=== PATIENT | male | born 1950 | race Caucasian/White ===

== ENCOUNTER 2021-06-15 23:42 | Emergency (ER) | payer MEDICARE ==
[2021-06-16 00:13] LABS: Basophils # (A) 0.1 k/uL (0-0.2); Basophils % (A) 1 %; Eosinophils # (A) 0.3 k/uL (0-0.7); Eosinophils % (A) 4 %; HCT 34.5 % (39.0-53.0); HGB 11.6 gm/dL (13.0-17.5); Lymphocytes # (A) 1.2 k/uL (1.0-4.8); Lymphocytes % (A) 19 %; MCH 33.7 pg (25.0-35.0); MCHC 33.6 g/dL (31.0-37.0); MCV 100.3 fL (80.0-100.0); Macrocytosis Slight; Mean Platelet Volume 8.8; Monocytes # (A) 0.5 k/uL (0-1.0); Monocytes % (A) 7 %; Neutrophils # (A) 4.4 k/uL (1.3-7.7); Neutrophils % (A) 68 %; Platelet Count 231 k/uL (150-450); RBC 3.44 m/uL (4.30-5.90); RDW 14.8 % (11.5-15.5); WBC 6.5 k/uL (3.8-10.6)
[2021-06-16 00:23] LABS: Albumin 3.8 g/dL (3.5-5.0); Calcium 8.7 mg/dL (8.4-10.2); Potassium 4.9 mmol/L (3.5-5.1); Total Bilirubin 0.5 mg/dL (0.2-1.3); Total Protein 7.1 g/dL (6.3-8.2)
[2021-06-16 00:33] LABS: Partial Thromboplastin Time 24.3 sec (22.0-30.0); Prothrombin Time 10.8 sec (9.0-12.0)
--- NOTE | 2021-06-16 00:55 | CT ---
EXAMINATION TYPE: CT brain wo con DATE OF EXAM: 06/16/2021 COMPARISON: None HISTORY: Fall, Head Laceration CT DLP: 1173.4 mGycm Automated exposure control for dose reduction was used. Images of the brain obtained without contrast. There is cerebral cortical atrophy. There is no mass effect or midline shift. There is no sign of int racranial hemorrhage. The calvarium is intact. There is normal aeration of the mastoid sinuses. There is mild enlargement of the ventricles. IMPRESSION: Cerebral atrophy. No acute intracranial abnormality. Right frontal scalp soft tissue swelling noted.
[2021-06-16] MEDS: TOPICAL SKIN ADHESIVE 1 EACH AMP TOPICAL STA ×2 (01:04→01:14)
[2021-06-16] MEDS ORDERED: TOPICAL SKIN ADHESIVE 1 EACH AMP TOPICAL ONE (01:09)
--- NOTE | 2021-06-16 01:57 | ED ---
Fall HPI - General Chief Complaint: Fall Stated Complaint: Fall Time Seen by Provider: 06/15/21 23:44 Source: patient, family Mode of arrival: ambulatory - History of Present Illness Initial Comments: This patient is a 71-year-old man who presents to have evaluation of right upper facial laceration following a fall. The patient states that he was going to get some water when he felt lightheaded. He thinks she may have blacked out briefly and then fallen striking his face. The patient did not have chest pain, dyspnea, diaphoresis, palpitations. After the fall he called his daughter who drove over and found him and he presents to have evaluation for the laceration. MD Complaint: fall -: minutes(s) Fall From: standing When Fall Occurred: just prior to arrival Fall Witnessed: no Place Fall Occurred: home Loss of Consciousness: second(s) Prolonged Down Time?: no Symptoms Prior to Fall: lightheadedness Location: face Severity: mild Quality: dull Context: history of frequent falls Associated Symptoms: headache - Related Data Allergies Allergy/AdvReac Type Severity Reaction Status Date / Time No Known Allergies Allergy Verified 06/16/21 00:04 Review of Systems ROS Statement: Those systems with pertinent positive or pertinent negative responses have been documented in the HPI. ROS Other: All systems not noted in ROS Statement are negative. Constitutional: Denies: fever, chills, weakness Eyes: Denies: eye pain, vision change ENT: Denies: epistaxis Respiratory: Denies: cough, dyspnea Cardiovascular: Reports: syncope. Denies: chest pain, palpitations, edema Gastrointestinal: Denies: abdominal pain, nausea, vomiting, diarrhea Musculoskeletal: Denies: back pain Skin: Reports: as per HPI, lesions (Laceration). Denies: rash Neurological: Reports: headache. Denies: weakness, numbness, paresthesias, confusion Hematological/Lymphatic: Reports: other (Taking Plavix). Denies: easy bleeding Past Medical History Past Medical History: Dialysis History of Any Multi-Drug Resistant Organisms: None Reported Past Psychological History: No Psychological Hx Reported Smoking Status: Unknown if ever smoked Past Alcohol Use History: None Reported Past Drug Use History: None Reported General Exam Limitations: no limitations General appearance: alert, in no apparent distress Head exam: Present: normocephalic, other (Patient has flap shaped laceration to the right brow and forehead, approximately 8 cm total length) Eye exam: Present: normal appearance, PERRL, EOMI. Absent: scleral icterus, conjunctival injection, nystagmus, periorbital swelling, periorbital tenderness ENT exam: Present: normal oropharynx, TM's normal bilaterally Neck exam: Present: normal inspection, full ROM. Absent: tenderness Respiratory exam: Present: normal lung sounds bilaterally. Absent: respiratory distress, wheezes, rales, rhonchi Cardiovascular Exam: Present: regular rate, normal rhythm, normal heart sounds. Absent: systolic murmur, diastolic murmur, rubs, gallop GI/Abdominal exam: Present: soft. Absent: distended, tenderness, guarding, rebound, rigid, mass Extremities exam: Present: normal inspection, normal capillary refill. Absent: pedal edema, calf tenderness Back exam: Present: normal inspection. Absent: CVA tenderness (R), CVA tenderness (L), vertebral tenderness Neurological exam: Present: alert, oriented X3, CN II-XII intact, normal gait. Absent: motor sensory deficit Skin exam: Present: warm, dry, intact, normal color. Absent: rash Course Vital Signs 06/15/21 06/16/21 23:51 02:45 Temperature 97.7 F Pulse Rate 68 64 Respiratory 18 20 Rate Blood Pressure 135/67 104/49 O2 Sat by Pulse 99 97 Oximetry Procedures - Laceration Laceration #1 Consent Obtained: verbal consent Indication: laceration Site: face Description: flap Depth: involves muscle layer Anesthetic Used: lidocaine 1% Anesthesia Technique: local infiltration Type of Sutures: nylon, vicryl Size of Sutures: 5-0 Number of Sutures: 18 Technique: simple, interrupted Complications: bleeding Patient Tolerated Procedure: well, no complications Medical Decision Making - Medical Decision Making Patient is a 71-year-old man here for evaluation after ground-level fall with right facial/eyebrow laceration. Discussed the etiology of the fall and patient believes that too much fluid was taken off at dialysis. He has had similar episodes previously. He was offered admission for syncope workup and at this point he feels well and wants home. He will return if any symptoms recur or new symptoms develop. Discussed appropriate further care and follow-up. - Lab Data Result diagrams: 06/16/21 00:06 06/16/21 00:06 Lab Results 06/16/21 06/16/2122 Range/Units 00:06 00:06 00:06 WBC 6.5 (3.8-10.6) k/uL RBC 3.44 L (4.30-5.90) m/uL Hgb 11.6 L (13.0-17.5) gm/dL Hct 34.5 L (39.0-53.0) % MCV 100.3 H (80.0-100.0) fL MCH 33.7 (25.0-35.0) pg MCHC 33.6 (31.0-37.0) g/dL RDW 14.8 (11.5-15.5) % Plt Count 231 (150-450) k/uL MPV 8.8 Neutrophils % 68 % Lymphocytes % 19 % Monocytes % 7 % Eosinophils % 4 % Basophils % 1 % Neutrophils # 4.4 (1.3-7.7) k/uL Lymphocytes # 1.2 (1.0-4.8) k/uL Monocytes # 0.5 (0-1.0) k/uL Eosinophils # 0.3 (0-0.7) k/uL Basophils # 0.1 (0-0.2) k/uL Macrocytosis Slight PT 10.8 (9.0-12.0) sec INR 1.0 (<1.2) APTT 24.3 (22.0-30.0) sec Sodium 136 L (137-145) mmol/L Potassium 4.9 (3.5-5.1) mmol/L Chloride 98 (98-107) mmol/L Carbon Dioxide 29 (22-30) mmol/L Anion Gap 9 mmol/L BUN 31 H (9-20) mg/dL Creatinine 4.22 H (0.66-1.25) mg/dL Est GFR (CKD-EPI)AfAm 15 (>60 ml/min/1.73 sqM) Est GFR (CKD-EPI)NonAf 13 (>60 ml/min/1.73 sqM) Glucose 122 H (74-99) mg/dL Calcium 8.7 (8.4-10.2) mg/dL Total Bilirubin 0.5 (0.2-1.3) mg/dL AST 21 (17-59) U/L ALT 9 (4-49) U/L Alkaline Phosphatase 86 (38-126) U/L Troponin I (0.000-0.034) ng/mL Total Protein 7.1 (6.3-8.2) g/dL Albumin 3.8 (3.5-5.0) g/dL 06/16/21 Range/Units 00:06 WBC (3.8-10.6) k/uL RBC (4.30-5.90) m/uL Hgb (13.0-17.5) gm/dL Hct (39.0-53.0) % MCV (80.0-100.0) fL MCH (25.0-35.0) pg MCHC (31.0-37.0) g/dL RDW (11.5-15.5) % Plt Count (150-450) k/uL MPV Neutrophils % % Lymphocytes % % Monocytes % % Eosinophils % % Basophils % % Neutrophils # (1.3-7.7) k/uL Lymphocytes # (1.0-4.8) k/uL Monocytes # (0-1.0) k/uL Eosinophils # (0-0.7) k/uL Basophils # (0-0.2) k/uL Macrocytosis PT (9.0-12.0) sec INR (<1.2) APTT (22.0-30.0) sec Sodium (137-145) mmol/L Potassium (3.5-5.1) mmol/L Chloride (98-107) mmol/L Carbon Dioxide (22-30) mmol/L Anion Gap mmol/L BUN (9-20) mg/dL Creatinine (0.66-1.25) mg/dL Est GFR (CKD-EPI)AfAm (>60 ml/min/1.73 sqM) Est GFR (CKD-EPI)NonAf (>60 ml/min/1.73 sqM) Glucose (74-99) mg/dL Calcium (8.4-10.2) mg/dL Total Bilirubin (0.2-1.3) mg/dL AST (17-59) U/L ALT (4-49) U/L Alkaline Phosphatase (38-126) U/L Troponin I 0.014 (0.000-0.034) ng/mL Total Protein (6.3-8.2) g/dL Albumin (3.5-5.0) g/dL Disposition Clinical Impression: Fall, Head injury, Laceration of face Disposition: HOME SELF-CARE Condition: Good Instructions (If sedation given, give patient instructions): Laceration (DC), Head Injury (ED) Is patient prescribed a controlled substance at d/c from ED?: No Referrals: Brice Davila DO [Primary Care Provider] - 1-2 days
[2021-06-16 02:46] VITALS: BP 104/49; PULSE 64; RESP 20; TEMP 97.7
== END 2021-06-16 02:30 | disposition home or self-care (01) ==
LOC: EC 23:42
DX: S01.111A Laceration without foreign body of right eyelid and periocular area, initial encounter (principal); W18.30XA Fall on same level, unspecified, initial encounter; Y92.009 Unspecified place in unspecified non-institutional (private) residence as the place of occurrence of the external cause
CPT/HCPCS: 12015; 36415; 70450; 80053; 84484; 85025; 85610; 85730; 93005; 99284

== ENCOUNTER → 2021-09-25 | Outpatient (CLI) | payer MEDICARE ==
--- NOTE | 2021-09-25 10:56 | CA ---
Transthoracic Echo Report Name: Aldo Turpin Age: 71 Gender: M : 1950 Exam Date: 09/25/2021 09:45 Exam Location: [facility] Ht (in): 74 Wt (lb): 235 Ordering Physician: Stella Gomez MD Attending/Referring Phys: Heel Seater Alicia Chinchilla RDCS Procedure CPT: Indications: RIGHT PLUERAL RUB Cardiac Hx: Technical Quality: Contrast 1: Total Dose (mL): Contrast 2: Total Dose (mL): MEASUREMENTS (Male / Female) Normal Values M-MODE Aortic Root Diameter MM 3.4 cm LA Systolic Diameter MM 4.2 cm LA Ao Ratio MM 1.2 AV Cusp Separation MM 2.2 cm DOPPLER MV Area PHT 3.5 cm??? Mitral E Point Velocity 57.8 cm/s Mitral A Point Velocity 75.7 cm/s Mitral E to A Ratio 0.8 MV Deceleration Time 215.8 ms TR Peak Velocity 248.6 cm/s TR Peak Gradient 24.7 mmHg FINDINGS Left Ventricle Left ventricular ejection fraction is estimated at 45%. Mildly increased left ventricular wall thickness. Right Ventricle Normal right ventricular size and function. Right Atrium Normal right atrial size. Left Atrium Moderately increased left atrial area. Mitral Valve Mitral valve thickened. Mild mitral regurgitation. Aortic Valve Aortic valve sclerosis. Mild aortic regurgitation. Tricuspid Valve Structurally normal tricuspid valve. Mild tricuspid regurgitation. Pulmonic Valve Pulmonic valve not well visualized. Pericardium Normal pericardium. Aorta Normal size aortic root and proximal ascending aorta. CONCLUSIONS Increase LV mass with reduced LV systolic function ejection fraction 45% Patient is also bradycardic Previewed by: Dr. Gama Yuan MD (Electronically Signed) Final Date: 25 September 2021 10:56
== END | disposition home or self-care (01) ==
LOC: RADECHMAIN 08:05
PROVIDERS: ATTEND Internal Medicine Nephrology
DX: R09.1 Pleurisy (principal)
CPT/HCPCS: 93306

== ENCOUNTER 2022-01-01 13:37 | Emergency (ER) | payer MEDICARE ==
[2022-01-01 13:44] VITALS: TEMP 97.6
--- NOTE | 2022-01-01 13:57 | ED ---
General Adult HPI - General Chief complaint: Shortness of Breath Stated complaint: crackling sound - lung Time Seen by Provider: 01/01/22 13:45 Source: patient, RN notes reviewed Mode of arrival: ambulatory Limitations: no limitations - History of Present Illness Initial comments: Patient is a 71 year old male presenting to the ER with a chief compliant of shortness of breath. Patient reports yesterday while at dialysis the staff told him they heard crackles in his lungs and that he sound go get a chest xray. He attends dialysis three times per week (Thursday, , Thursday). Patient has experiencing shortness of breath for about a week and woke up on 12/29/21, covered in sweat. He also endorses a dry cough. He denies fevers or chills. Denies recent sick contacts. 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 Denies chest pain, congestion, abdominal pain, or change in bowel habits. - Related Data Previous Rx's Medication Instructions Recorded Azithromycin [Zithromax Z Pack] 0 tab PO DIRECTED #6 tab 01/01/22 Allergies Allergy/AdvReac Type Severity Reaction Status Date / Time No Known Allergies Allergy Verified 01/01/22 13:44 Review of Systems ROS Statement: Those systems with pertinent positive or pertinent negative responses have been documented in the HPI. ROS Other: All systems not noted in ROS Statement are negative. Past Medical History Past Medical History: Dialysis History of Any Multi-Drug Resistant Organisms: None Reported Additional Past Surgical History / Comment(s): Cardiac Bipass (6 at once). Past Psychological History: No Psychological Hx Reported Smoking Status: Former smoker Past Alcohol Use History: None Reported Past Drug Use History: None Reported General Exam Limitations: no limitations General appearance: alert, in no apparent distress Respiratory exam: Present: wheezes, rales Cardiovascular Exam: Present: regular rate, normal rhythm, normal heart sounds. Absent: systolic murmur, diastolic murmur, rubs, gallop, clicks GI/Abdominal exam: Present: soft, normal bowel sounds. Absent: distended, tenderness, guarding, rebound, rigid Neurological exam: Present: alert, oriented X3, CN II-XII intact Psychiatric exam: Present: normal affect, normal mood Skin exam: Present: warm, dry, intact, normal color. Absent: rash Course Vital Signs 01/01/22 13:41 Temperature 97.6 F Pulse Rate 60 Respiratory 20 Rate Blood Pressure 130/70 O2 Sat by Pulse 99 Oximetry Medical Decision Making - Medical Decision Making Patient is a 71 year old male presenting to the ER with a chief complaint of shortness of breath. Chest x-ray shows possibility of early changes of pneumonia right lower. Patient has slight cough but not feels short of breath, chest pain lab work and normal baseline for patient. Patient agrees to plan of discharge with antiemetics and close follow-up. - Lab Data Result diagrams: 01/01/22 14:30 01/01/22 14:30 Lab Results 01/01/22 01/01/22 01/01/22 Range/Units 14:30 14:30 14:30 WBC 6.4 (3.8-10.6) k/uL RBC 3.53 L (4.30-5.90) m/uL Hgb 11.7 L (13.0-17.5) gm/dL Hct 35.1 L (39.0-53.0) % MCV 99.5 (80.0-100.0) fL MCH 33.3 (25.0-35.0) pg MCHC 33.4 (31.0-37.0) g/dL RDW 13.9 (11.5-15.5) % Plt Count 204 (150-450) k/uL MPV 9.1 Neutrophils % 67 % Lymphocytes % 18 % Monocytes % 8 % Eosinophils % 4 % Basophils % 1 % Neutrophils # 4.2 (1.3-7.7) k/uL Lymphocytes # 1.2 (1.0-4.8) k/uL Monocytes # 0.5 (0-1.0) k/uL Eosinophils # 0.3 (0-0.7) k/uL Basophils # 0.0 (0-0.2) k/uL Sodium 134 L (137-145) mmol/L Potassium 4.6 (3.5-5.1) mmol/L Chloride 95 L (98-107) mmol/L Carbon Dioxide 27 (22-30) mmol/L Anion Gap 12 mmol/L BUN 49 H (9-20) mg/dL Creatinine 6.06 H (0.66-1.25) mg/dL Est GFR (CKD-EPI)AfAm 10 (>60 ml/min/1.73 sqM) Est GFR (CKD-EPI)NonAf 9 (>60 ml/min/1.73 sqM) Glucose 253 H (74-99) mg/dL Calcium 8.6 (8.4-10.2) mg/dL Phosphorus 5.5 H (2.5-4.5) mg/dL Magnesium 2.2 (1.6-2.3) mg/dL Total Bilirubin 0.6 (0.2-1.3) mg/dL AST 23 (17-59) U/L ALT 14 (4-49) U/L Alkaline Phosphatase 111 (38-126) U/L NT-Pro-B Natriuret Pep 50814 pg/mL Total Protein 7.0 (6.3-8.2) g/dL Albumin 4.1 (3.5-5.0) g/dL Coronavirus (PCR) (Not Detectd) 01/01/22 Range/Units 15:00 WBC (3.8-10.6) k/uL RBC (4.30-5.90) m/uL Hgb (13.0-17.5) gm/dL Hct (39.0-53.0) % MCV (80.0-100.0) fL MCH (25.0-35.0) pg MCHC (31.0-37.0) g/dL RDW (11.5-15.5) % Plt Count (150-450) k/uL MPV Neutrophils % % Lymphocytes % % Monocytes % % Eosinophils % % Basophils % % Neutrophils # (1.3-7.7) k/uL Lymphocytes # (1.0-4.8) k/uL Monocytes # (0-1.0) k/uL Eosinophils # (0-0.7) k/uL Basophils # (0-0.2) k/uL Sodium (137-145) mmol/L Potassium (3.5-5.1) mmol/L Chloride (98-107) mmol/L Carbon Dioxide (22-30) mmol/L Anion Gap mmol/L BUN (9-20) mg/dL Creatinine (0.66-1.25) mg/dL Est GFR (CKD-EPI)AfAm (>60 ml/min/1.73 sqM) Est GFR (CKD-EPI)NonAf (>60 ml/min/1.73 sqM) Glucose (74-99) mg/dL Calcium (8.4-10.2) mg/dL Phosphorus (2.5-4.5) mg/dL Magnesium (1.6-2.3) mg/dL Total Bilirubin (0.2-1.3) mg/dL AST (17-59) U/L ALT (4-49) U/L Alkaline Phosphatase (38-126) U/L NT-Pro-B Natriuret Pep pg/mL Total Protein (6.3-8.2) g/dL Albumin (3.5-5.0) g/dL Coronavirus (PCR) Not Detected (Not Detectd) Disposition Clinical Impression: Pneumonia Disposition: HOME SELF-CARE Condition: Stable Instructions (If sedation given, give patient instructions): Pneumonia (ED) Additional Instructions: Please return to the Emergency Department if symptoms worsen or any other concerns. Prescriptions: Azithromycin [Zithromax Z Pack] 0 tab PO DIRECTED #6 tab Is patient prescribed a controlled substance at d/c from ED?: No Referrals: Brice Davila DO [Primary Care Provider] - 1-2 days Time of Disposition: 15:43
--- NOTE | 2022-01-01 14:20 | XR ---
EXAMINATION TYPE: XR chest 2V DATE OF EXAM: 01/01/2022 COMPARISON: NONE HISTORY: Coughing and shortness of breath. TECHNIQUE: Frontal and lateral views of the chest are obtained. FINDINGS: Sternal wires and mediastinal clips are present. There is chronic parenchymal change with small bilat eral pleural effusions. There is right-sided volume loss with mediastinal shift to the right. There i s peripherally right lower lung and right greater than left bibasilar opacities. Cardiac silhouette s ize within normal limits. Osseous structures are intact. IMPRESSION: Chronic emphysematous and parenchymal fibrotic changes with small bilateral pleural eff usions. Right-sided volume loss. Possible acute infiltrate in the right lower lobe. Correlation with old outside x-ray would be beneficial.
[2022-01-01 15:10] LABS: Basophils % (A) 1 %; Eosinophils # (A) 0.3 k/uL (0-0.7); Eosinophils % (A) 4 %; HCT 35.1 % (39.0-53.0); HGB 11.7 gm/dL (13.0-17.5); Lymphocytes # (A) 1.2 k/uL (1.0-4.8); Lymphocytes % (A) 18 %; MCH 33.3 pg (25.0-35.0); MCHC 33.4 g/dL (31.0-37.0); MCV 99.5 fL (80.0-100.0); Mean Platelet Volume 9.1; Monocytes # (A) 0.5 k/uL (0-1.0); Monocytes % (A) 8 %; Neutrophils # (A) 4.2 k/uL (1.3-7.7); Neutrophils % (A) 67 %; Platelet Count 204 k/uL (150-450); RBC 3.53 m/uL (4.30-5.90); RDW 13.9 % (11.5-15.5); WBC 6.4 k/uL (3.8-10.6)
[2022-01-01 15:35] LABS: Albumin 4.1 g/dL (3.5-5.0); Calcium 8.6 mg/dL (8.4-10.2); Magnesium 2.2 mg/dL (1.6-2.3); Phosphorus 5.5 mg/dL (2.5-4.5); Potassium 4.6 mmol/L (3.5-5.1); Total Bilirubin 0.6 mg/dL (0.2-1.3)
[2022-01-01] MEDS ORDERED: cefTRIAXone IN SWFI 1,000 MG/10 ML SYRINGE IVP STA (15:41)
[2022-01-01 16:19] VITALS: BP 177/83; PULSE 62; RESP 18
== END 2022-01-01 16:22 | disposition home or self-care (01) ==
LOC: SUPCPDRO 13:37 → EC 13:37
DX: J18.9 Pneumonia, unspecified organism (principal); Z20.822 Contact with and (suspected) exposure to COVID-19; Z87.891 Personal history of nicotine dependence
CPT/HCPCS: 36415; 83880; 80053; 83605; 83735; 84100; 85025; 87040; 87635; 71046; 99285; 96374; J0696

== ENCOUNTER 2022-03-10 19:04 | Inpatient (IN) | payer MEDICARE ==
[2022-03-10 20:55] LABS: Basophils # (A) 0.1 k/uL (0-0.2); Basophils % (A) 1 %; Eosinophils # (A) 0.1 k/uL (0-0.7); Eosinophils % (A) 1 %; HCT 30.9 % (39.0-53.0); HGB 10.2 gm/dL (13.0-17.5); Lymphocytes # (A) 0.8 k/uL (1.0-4.8); Lymphocytes % (A) 8 %; MCHC 33.1 g/dL (31.0-37.0); MCV 93.6 fL (80.0-100.0); Mean Platelet Volume 7.8; Monocytes # (A) 0.5 k/uL (0-1.0); Monocytes % (A) 5 %; Neutrophils % (A) 84 %; Platelet Count 263 k/uL (150-450); RDW 14.9 % (11.5-15.5); WBC 9.6 k/uL (3.8-10.6)
[2022-03-10 21:08] LABS: Albumin 3.7 g/dL (3.5-5.0); Calcium 9.2 mg/dL (8.4-10.2); Magnesium 2.2 mg/dL (1.6-2.3); Total Bilirubin 0.9 mg/dL (0.2-1.3); Total Protein 7.1 g/dL (6.3-8.2)
[2022-03-10 21:22] LABS: Partial Thromboplastin Time 24.2 sec (22.0-30.0); Prothrombin Time 10.9 sec (9.0-12.0)
--- NOTE | 2022-03-10 21:54 | XR ---
EXAMINATION TYPE: XR chest 2V DATE OF EXAM: 03/10/2022 COMPARISON: 01/01/2022 HISTORY: Chest pain TECHNIQUE: 2 views FINDINGS: There is extensive pleural thickening on the right lateral chest wall. There is extensive i nfiltrate right lower lobe. There is some diffuse airspace infiltrate left lower lobe. Heart size is normal. There are sternal wires. IMPRESSION: Bilateral pneumonia and moderate size right pleural effusion with loculation. Abnormaliti es significantly increased on the right side compared to old exam. Follow-up recommended. Consider po ssibilities of empyema and mesothelioma.
[2022-03-10] MEDS ORDERED: carvediloL 3.125 MG TAB PO STA (21:58)
--- NOTE | 2022-03-10 22:26 | ED ---
General Adult HPI - General Chief complaint: Chest Pain Stated complaint: sob, cough Time Seen by Provider: 03/10/22 21:18 Source: patient, RN notes reviewed, old records reviewed Mode of arrival: ambulatory Limitations: no limitations - History of Present Illness Initial comments: Patient is a 72-year-old male with past medical history remarkable for ESRD on hemodialysis Thursday, diabetes, hypertension, CABG who presents emergency Department from home today for progressively worsening shortness of breath over the last 2 weeks. Denies any lower extremity edema. Endorses worsening orthopnea. States he did have an episode of chest pain earlier which has since resolved. He does endorse a progressively worsening nonproductive cough as well. Did have 1 episode of posttussive emesis earlier as well. Is normally not on oxygen, however patient's daughter used a home pulse ox and found that he was in the high 80%'s. When he arrived here, he did drop down to 90% on room air. This is abnormal for the patient. States he does get exertional dyspnea. Denies any PND. States that the chest pain he expressed earlier was substernal, and felt a sharp sensation that lasted momentarily and when away. Has not been consistent since then. Denies any sick contacts. Patient's daughter is his guardian. She is at bedside and helps with history taking. Presents for further evaluation at this time. Has not missed any runs of dialysis. Is due for dialysis tomorrow. - Related Data Previous Rx's Medication Instructions Recorded Azithromycin [Zithromax Z Pack] 0 tab PO DIRECTED #6 tab 01/01/22 Allergies Allergy/AdvReac Type Severity Reaction Status Date / Time codeine Allergy Rash/Hives Verified 03/10/22 20:10 Review of Systems ROS Statement: Those systems with pertinent positive or pertinent negative responses have been documented in the HPI. Review of Systems: CONST: Denies fever EYES: Denies blurry vision ENT: Denies nasal congestion C/V: Denies Chest pain RESP: Endorses exertional dyspnea, nonproductive cough GI: Denies abdominal pain : Denies dysuria SKIN: Denies rash. MSK: Denies joint pain. NEURO: Denies headache ROS Other: All systems not noted in ROS Statement are negative. Past Medical History Past Medical History: Diabetes Mellitus, Dialysis, Hypertension Additional Past Medical History / Comment(s): CABG, Cataracts History of Any Multi-Drug Resistant Organisms: None Reported Additional Past Surgical History / Comment(s): Cardiac Bipass (6 at once). Past Psychological History: No Psychological Hx Reported Smoking Status: Former smoker Past Alcohol Use History: None Reported Past Drug Use History: None Reported General Exam - General Exam Comments Initial Comments: General: Appears in no acute distress. HEAD: Normal with no signs of head trauma. EYES: PERRLA, EOMI, conjunctiva normal, no discharge. ENT: Hearing grossly intact, normal oropharynx. RESPIRATORY: Bilateral lower lung field crackles appreciated. Hypoxic on room air down to 90%. Normoxic on 2 L nasal cannula. No respiratory distress. C/V: Regular rate and rhythm. S1 and S2 auscultated, no peripheral edema, peripheral pulses 2+ and intact throughout. Left upper extremity AV fistula has palpable thrill and audible bruit. ABD: Abd is soft, nontender, nondistended EXT: Normal range of motion, no obvious deformity SKIN: No rashes or lesions observed on exposed skin. NEURO: Alert and oriented 4. No focal deficits. Limitations: no limitations Course Vital Signs 03/10/22 03/10/22 03/10/22 20:01 21:00 22:00 Temperature 98.7 F Pulse Rate 72 65 68 Respiratory 14 18 18 Rate Blood Pressure 172/80 198/85 198/85 O2 Sat by Pulse 98 98 98 Oximetry 03/10/22 03/11/22 03/11/22 23:00 00:00 00:05 Temperature Pulse Rate 71 64 64 Respiratory 16 16 16 Rate Blood Pressure 200/84 194/84 182/84 O2 Sat by Pulse 97 98 98 Oximetry 03/11/22 03/11/22 03/11/22 02:00 03:00 04:00 Temperature Pulse Rate 63 62 63 Respiratory 16 18 18 Rate Blood Pressure 177/76 177/81 185/85 O2 Sat by Pulse 96 97 96 Oximetry Medical Decision Making - Medical Decision Making Based on the patient's presentation and physical exam, he is a 72-year-old male with cardiac history as well as history of ESRD on hemodialysis has not missed dialysis presents with one-time episode of chest pain but mostly for progressively worsening shortness of breath, nonproductive cough for the last few weeks. Has not missed any runs of dialysis. He is hypoxic on room air to 90% which is improved with 2 L nasal cannula. I'm concerned for possible cardiac pulmonary etiology for his current symptoms. Does appear to be fluid overloaded with bilateral lower lung field crackles. Clinically is presenting like congestive heart failure versus fluid overload state. He is also hypert ensive at this time but this is likely secondary to not taking his evening blood pressure medication. This will be ordered for the patient, as well as an aspirin. Cardiac labs, chest x-ray, EKG were already obtained, and were remarkable for a chronic anemia with a hemoglobin of 10.2 which is stable. Patient is chronically elevated BUN/creatinine setting of ESRD on hemodialysis. Troponin is indeterminate at 0.025. I did add on BNP as well as for Flexeril for the patient. EKG shows no signs of acute ischemia. Chest x-ray still pending. I'll check on the patient once results are back. Workup was started in triage and is pending at this time. He was in agreement this plan. Add-on BNP was 72,000. Patient is Covid, flu, RSV negative. Chest x-ray revealed bilateral infiltrates, as well as bilateral pleural effusions. Radiology was concerned for possible loculation and recommended further imaging. At this time I discussed with the patient's daughter as well as the patient, and we both agreed to obtain CT imaging of the chest with contrast. He is being admitted no matter what due to his hypoxia and therefore can receive dialysis here tomorrow. They were in agreement with this plan. CT revealed bilateral pleural effusions, larger on the right side. At this time patient's daughter left and I did call her and updated her on the patient's imaging. I accepted the patient. States he does still produce some urine and therefore will be given a single dose of Lasix. He requires pulmonology consult for possible drainage of his pleural effusions. He also requires dialysis. I did speak with the laborer concrete plant on-call, Dr. Gomez who was in agreement with dialysis. We contacted the dialysis team to notify them of the patient's requirement for dialysis tomorrow. I did the patient. He was in agreement with the plan for admission. Patient was therefore admitted in stable condition. He'll be continued on oxygen therapy. I spoke with the admitting physician, city call Dr. Amaya who accepted the patient. He was admitted in stable condition. Was pt. sent in by a medical professional or institution (HIREN Jacobson, PUBLIC HEALTH ANALYST, urgent care, hospital, or alf...) When possible be specific @ -No Did you speak to anyone other than the patient for history (EMS, parent, family, police, friend...)? What history was obtained from this source @ -Yes, patient's daughter who provided most of the history. Did you review nursing and triage notes (agree or disagree)? Why? @ -I reviewed and agree with nursing and triage notes Were old charts reviewed (outside hosp., previous admission, EMS record, old EKG, old radiological studies, urgent care reports/EKG's, alf records)? Report findings @ -Yes, old EKGs and charts were reviewed. Differential Diagnosis (chest pain, altered mental status, abdominal pain women, abdominal pain men, vaginal bleeding, weakness, fever, dyspnea, syncope, headache, dizziness, GI bleed, back pain, seizure, CVA, palpatations, mental health)? @ -Differential Dyspnea: Coronary syndrome, arrhythmia, tamponade, asthma, COPD, pulmonary embolism, pneumonia, pneumothorax, pulmonary effusion, anaphylaxis, diabetic ketoacidosis, flailed chest, pulmonary contusion, diaphragmatic rupture, anemia, neuromuscular, this is not meant to be an all-inclusive list. EKG interpreted by me (3pts min.). @ -As above X-rays interpreted by me (1pt min.). @ -Chest x-ray shows bilateral pulmonary edema, pleural effusions CT interpreted by me (1pt min.). @ -Bilateral pleural effusions, right worse than left on CT chest. U/S interpreted by me (1pt. min.). @ -None done What testing was considered but not performed or refused? (CT, X-rays, U/S, labs)? Why? @ -None What meds were considered but not given or refused? Why? @ -None Did you discuss the management of the patient with other professionals (professionals i.e. HIREN Jacobson, PUBLIC HEALTH ANALYST, lab, RT, psych nurse, social science professor, credit interviewer, teacher, chemical instrumentation officer, mattress spring encaser)? Give summary @ -Yes, patient's laborer concrete plant Dr. Gomez who agreed to arrange for dialysis. Also spoke with the admitting physician Dr. Amaya who was in agreement with the plan. Was smoking cessation discussed for >3mins.? @ -No Was critical care preformed (if so, how long)? @ -No Were there social determinants of health that impacted care today? How? (Homele ssness, low income, unemployed, alcoholism, drug addiction, transportation, low edu. Level, literacy, decrease access to med. care, detention, rehab)? @ -No Was there de-escalation of care discussed even if they declined (Discuss DNR or withdrawal of care, Hospice)? DNR status @ -No What co-morbidities impacted this encounter? (DM, HTN, Smoking, COPD, CAD, Cancer, CVA, ARF, Chemo, Hep., AIDS, mental health diagnosis, sleep apnea, morbid obesity)? @ -ESRD on hemodialysis Was patient admitted / discharged? Hospital course, mention meds given and route, prescriptions, significant lab abnormalities, going to OR and other pertinent info. @ -Admitted. See above for ED course. Undiagnosed new problem with uncertain prognosis? @ -No Drug Therapy requiring intensive monitoring for toxicity (Heparin, Nitro, Insul in, Cardizem)? @ -No Were any procedures done? @ -No Diagnosis/symptom? @ -Hypoxic respiratory failure Acute, or Chronic, or Acute on Chronic? @ -Acute Uncomplicated (without systemic symptoms) or Complicated (systemic symptoms)? @ -Complicated Side effects of treatment? @ -No Exacerbation, Progression, or Severe Exacerbation? @ -No Poses a threat to life or bodily function? How? (Chest pain, [place], [place], pneumonia, PE, COPD, DKA, ARF, appy, cholecystitis, CVA, Diverticulitis, Homicidal, Suicidal, threat to staff... and all critical care pts) @ -Yes, if untreated can result in significant morbidity and mortality. Diagnosis/symptom? @ -Bilateral pleural effusions Acute, or Chronic, or Acute on Chronic? @ -Acute on chronic Uncomplicated (without systemic symptoms) or Complicated (systemic symptoms)? @ -Complicated Side effects of treatment? @ -none Exacerbation, Progression, or Severe Exacerbation] @ -no Poses a threat to life or bodily function? @ -Yes, if untreated can result in significant morbidity and mortality. Diagnosis/symptom? @ -History of ESRD on hemodialysis Acute, or Chronic, or Acute on Chronic? @ -Chronic Uncomplicated (without systemic symptoms) or Complicated (systemic symptoms)? @ -Uncomplicated Side effects of treatment? @ -none Exacerbation, Progression, or Severe Exacerbation] @ -no Poses a threat to life or bodily function? @ -no - Lab Data Result diagrams: 03/10/22 20:13 03/10/22 20:13 Lab Results 03/10/22 03/10/22 03/10/22 Range/Units 20:13 20:13 20:13 WBC 9.6 (3.8-10.6) k/uL RBC 3.30 L (4.30-5.90) m/uL Hgb 10.2 L (13.0-17.5) gm/dL Hct 30.9 L (39.0-53.0) % MCV 93.6 (80.0-100.0) fL MCH 31.0 (25.0-35.0) pg MCHC 33.1 (31.0-37.0) g/dL RDW 14.9 (11.5-15.5) % Plt Count 263 (150-450) k/uL MPV 7.8 Neutrophils % 84 % Lymphocytes % 8 % Monocytes % 5 % Eosinophils % 1 % Basophils % 1 % Neutrophils # 8.0 H (1.3-7.7) k/uL Lymphocytes # 0.8 L (1.0-4.8) k/uL Monocytes # 0.5 (0-1.0) k/uL Eosinophils # 0.1 (0-0.7) k/uL Basophils # 0.1 (0-0.2) k/uL PT 10.9 (9.0-12.0) sec INR 1.0 (<1.2) APTT 24.2 (22.0-30.0) sec Sodium 135 L (137-145) mmol/L Potassium 5.0 (3.5-5.1) mmol/L Chloride 96 L (98-107) mmol/L Carbon Dioxide 29 (22-30) mmol/L Anion Gap 10 mmol/L BUN 27 H (9-20) mg/dL Creatinine 5.79 H (0.66-1.25) mg/dL Est GFR (CKD-EPI)AfAm 10 (>60 ml/min/1.73 sqM) Est GFR (CKD-EPI)NonAf 9 (>60 ml/min/1.73 sqM) Glucose 172 H (74-99) mg/dL Calcium 9.2 (8.4-10.2) mg/dL Magnesium 2.2 (1.6-2.3) mg/dL Total Bilirubin 0.9 (0.2-1.3) mg/dL AST 22 (17-59) U/L ALT 13 (4-49) U/L Alkaline Phosphatase 87 (38-126) U/L Troponin I (0.000-0.034) ng/mL NT-Pro-B Natriuret Pep pg/mL Total Protein 7.1 (6.3-8.2) g/dL Albumin 3.7 (3.5-5.0) g/dL Influenza Type A (PCR) (Not Detectd) Influenza Type B (PCR) (Not Detectd) RSV (PCR) (Not Detectd) SARS-CoV-2 (PCR) (Not Detectd) 03/10/22 03/10/22 03/10/22 Range/Units 20:13 22:46 22:46 WBC (3.8-10.6) k/uL RBC (4.30-5.90) m/uL Hgb (13.0-17.5) gm/dL Hct (39.0-53.0) % MCV (80.0-100.0) fL MCH (25.0-35.0) pg MCHC (31.0-37.0) g/dL RDW (11.5-15.5) % Plt Count (150-450) k/uL MPV Neutrophils % % Lymphocytes % % Monocytes % % Eosinophils % % Basophils % % Neutrophils # (1.3-7.7) k/uL Lymphocytes # (1.0-4.8) k/uL Monocytes # (0-1.0) k/uL Eosinophils # (0-0.7) k/uL Basophils # (0-0.2) k/uL PT (9.0-12.0) sec INR (<1.2) APTT (22.0-30.0) sec Sodium (137-145) mmol/L Potassium (3.5-5.1) mmol/L Chloride (98-107) mmol/L Carbon Dioxide (22-30) mmol/L Anion Gap mmol/L BUN (9-20) mg/dL Creatinine (0.66-1.25) mg/dL Est GFR (CKD-EPI)AfAm (>60 ml/min/1.73 sqM) Est GFR (CKD-EPI)NonAf (>60 ml/min/1.73 sqM) Glucose (74-99) mg/dL Calcium (8.4-10.2) mg/dL Magnesium (1.6-2.3) mg/dL Total Bilirubin (0.2-1.3) mg/dL AST (17-59) U/L ALT (4-49) U/L Alkaline Phosphatase (38-126) U/L Troponin I 0.025 (0.000-0.034) ng/mL NT-Pro-B Natriuret Pep 64319 pg/mL Total Protein (6.3-8.2) g/dL Albumin (3.5-5.0) g/dL Influenza Type A (PCR) Not Detected (Not Detectd) Influenza Type B (PCR) Not Detected (Not Detectd) RSV (PCR) Not Detected (Not Detectd) SARS-CoV-2 (PCR) Not Detected (Not Detectd) - EKG Data -: EKG Interpreted by Me EKG Comments: 12-lead Electrocardiogram Interpretation Note EKG was reviewed and interpreted by myself. 12-lead ECG performed at 2012 is interpreted by me as revealing normal sinus rhythm at a rate of 69 beats per minute. Butternut is normal. CA interval is 209 ms, QRS duration is 138 ms, QTc is 472 ms.. There were no acute ST or T wave abnormalities to suggest myocardial ischemia or injury. R wave progression across the precordium was satisfactory. By my interpretation this EKG is non-diagnostic for acute ischemia. When compared with EKG from May 2021, no significant change. Disposition Clinical Impression: Pleural effusion, Hypoxia, ESRD on hemodialysis Disposition: ADMITTED IP TO THIS HOSP Condition: Stable Time of Disposition: 00:20
[2022-03-10] MEDS ORDERED: RX INFO: IV CONTRAST WAS GIVEN 1 EACH MISC MISCELLANE PRN (22:50)
--- NOTE | 2022-03-10 23:44 | CT ---
EXAMINATION TYPE: CT chest w con DATE OF EXAM: 03/10/2022 COMPARISON: None HISTORY: DYSPNEA CT DLP: 772 mGycm Automated exposure control for dose reduction was used. CONTRAST: Performed with IV Contrast, patient injected with 80 mL of Isovue 300. Images obtained from the thoracic inlet to the diaphragm with the IV contrast. There are bilateral pleural effusions and larger on the right side. There is some patchy atelectasis right lung base. There is some calcification of the visceral pleura of the atelectatic right lower lo be. Minimal calcification also seen in the left lower lobe pleura. There are sternal wires. There is no mediastinal adenopathy. There are no hilar masses. No filling defects seen in the pulmonary arteri es. There is coronary artery calcification. Heart size is fairly normal. There is some spurring in the thoracic spine. IMPRESSION: Bilateral pleural effusions are larger on the right side. No evidence of pulmonary embolism. Calcifie d pleural plaque. There is some right lower lobe atelectasis with calcification.
[2022-03-11] MEDS ORDERED: NALOXONE 0.4 MG/ML 1 ML VIAL IV PRN (00:32)
[2022-03-11] MEDS ORDERED: FUROSEMIDE 10 MG/ML 4 ML VIAL IV STA (05:03)
[2022-03-11] MEDS ORDERED: CLOPIDOGREL 75 MG TAB PO SCH (09:00)
--- NOTE | 2022-03-11 11:48 | P.CNPUL ---
History of Present Illness Consult date: 03/11/22 Requesting physician: Isaak Amaya Reason for consult: dyspnea, hypoxemia, pleural effusion, abnormal CXR/CT Chief complaint: Shortness of breath. History of present illness: Pulmonary consult dated 03/11/2022. 72-year-old male, seen in the emergency room, room #27. This is a patient who was seen in the emergency department initially on March 10. He came into the emergency room with complaints of shortness of breath, cough, and chest pain. The patient does have a history of end-stage renal disease, typically on Thursday, , and Thursday hemodialysis. He also has history of diabetes, hypertension, CAD, and previous bypass grafting. Over the last 10-14 days, the patient admits to increasing shortness of breath, and cough. He also has worsening orthopnea. The patient had a chest x-ray which revealed a pleural effusion, which was noted to be bilaterally, worse on the right side. It also appears to be loculated. The patient is typically not on home oxygen, but his saturations initially in the ER, were in the high 80s. He was placed on 2 L. He is not on any IV fluids. White count 9.6, hemoglobin 10.2, hematocrit 30.9, and platelet count 263,000. Sodium 135, potassium I.0, chloride 96, CO2 29, BUN 27, and creatinine 5.79. N-terminal proBNP was 72,500. Chest x-ray showed bilateral pleural effusion, right greater than left. The right-sided effusion is certainly loculated. The computed tomography scan showed bilateral pleural effusions, larger on the right side. There was no evidence of pulmonary embolism. There was calcified pleural plaque noted. Review of Systems REVIEW OF SYSTEMS: CONSTITUTIONAL: [Negative.] NEUROLOGIC: [ Negative.] HEENT: [ Negative.] CARDIAC: Chest pain. PULMONARY: Shortness of breath, chest congestion, and cough. GI: [Negative.] : [Negative.] RHEUMATOLOGIC: [ Negative.] IMMUNOLOGIC: [ Negative.] ENDOCRINE: [Negative. ] DERMATOLOGIC: [Negative.] Past Medical History Past Medical History: Coronary Artery Disease (CAD), Diabetes Mellitus, Janae lysis, Hypertension, Memory Impairment, Renal Disease Additional Past Medical History / Comment(s): CABG, Cataracts History of Any Multi-Drug Resistant Organisms: None Reported Past Surgical History: Adenoidectomy, Tonsillectomy Additional Past Surgical History / Comment(s): Cardiac Bipass (6 at once). Past Anesthesia/Blood Transfusion Reactions: No Reported Reaction Past Psychological History: No Psychological Hx Reported Smoking Status: Former smoker Past Alcohol Use History: None Reported Past Drug Use History: None Reported - Past Family History Daughter(s) Family Medical History: No Reported History Medications and Allergies Home Medications Medication Instructions Recorded Confirmed Type Calcium Acetate [Phoslo] 667 mg PO QID 03/11/22 03/11/22 History Clopidogrel [Plavix] 75 mg PO DAILY 03/11/22 03/11/22 History Escitalopram [Lexapro] 20 mg PO DAILY 03/11/22 03/11/22 History Pantoprazole [Protonix] 40 mg PO DAILY 03/11/22 03/11/22 History Rosuvastatin Calcium 40 mg PO HS 03/11/22 03/11/22 History Torsemide [Demadex] 40 mg PO MOWEFRSA 03/11/22 03/11/22 History carvediloL [Coreg] 3.125 mg PO BID 03/11/22 03/11/22 History Allergies Allergy/AdvReac Type Severity Reaction Status Date / Time cephalexin [From Keflex] Allergy Rash/Hives Verified 03/11/22 07:11 codeine Allergy Rash/Hives Verified 03/11/22 07:11 Physical Exam Osteopathic Statement: *. No significant issues noted on an osteopathic structural exam other than those noted in the History and Physical/Consult. Vitals: Vital Signs Temp Pulse Pulse Resp BP BP Pulse Ox 03/11/22 11:36 97.7 F 59 L 20 179/76 96 03/11/22 08:55 99.1 F 64 20 180/75 97 03/11/22 07:00 66 16 184/84 95 03/11/22 06:00 64 18 183/80 97 03/11/22 05:00 63 16 179/78 96 03/11/22 04:00 63 18 185/85 96 03/11/22 03:00 62 18 177/81 97 03/11/22 02:00 63 16 177/76 96 03/11/22 00:05 64 16 182/84 98 03/11/22 00:00 64 16 194/84 98 03/10/22 23:00 71 16 200/84 97 03/10/22 22:00 68 18 198/85 98 03/10/22 21:00 65 18 198/85 98 03/10/22 20:01 98.7 F 72 14 172/80 98 Intake and Output 03/10/22 03/11/22 03/11/22 22:59 06:59 14:59 Intake Total 240 Balance 240 Intake: Oral 240 Other: Weight 110.359 kg 110.359 kg No acute distress, oriented 3. Currently on 2 L. No obvious respiratory distress, or audible wheezing. HEENT examination is grossly unremarkable. Neck supple. Full range of motion. No adenopathy thyromegaly or neck vein distention. Cardiovascular examination reveals regular rhythm rate. S1-S2 normal. No S3 or S4. No discernible murmur noted. Heart sounds are distant. Heart rate 60 bpm. Lungs reveal a clear left lung. The right lung has diminished breath sounds. No crackles. No wheezes. No rhonchi. Abdomen soft bowel sounds are heard. No masses or tenderness. Extremities are intact. No cyanosis clubbing or edema. Skin is without rash or lesion. Neurologic examination is brief but nonfocal. Results - Laboratory Findings CBC and BMP: 03/10/22 20:13 03/10/22 20:13 PT/INR, D-dimer PT 10.9 sec (9.0-12.0) 03/10/22 20:13 INR 1.0 (<1.2) 03/10/22 20:13 Abnormal lab findings: Abnormal Labs 03/10/22 03/10/22 20:13 20:13 RBC 3.30 L Hgb 10.2 L Hct 30.9 L Neutrophils # 8.0 H Lymphocytes # 0.8 L Sodium 135 L Chloride 96 L BUN 27 H Creatinine 5.79 H Glucose 172 H - Diagnostic Findings Chest x-ray: image reviewed CT scan - chest: image reviewed Assessment and Plan Assessment: Acute shortness of breath with hypoxemia, likely related to bilateral right greater than left effusions. The right-sided effusion appears to be loculated. Acute fluid overload, secondary to end-stage renal disease. End-stage renal disease, currently on 3 times a week hemodialysis. History of CAD with previous bypass grafting. History of diabetes mellitus. History of hypertension. Prior history of tobacco use. History of hyperlipidemia. Plan: Plan dated 03/11/2022. The patient is evaluated, and reviewed, and examined. The patient has bilateral effusions, right greater than left. The right-sided effusion appears to be loculated. The patient will have a thoracentesis, performed by interventional radiology, under ultrasound guidance, and the fact that the fluid is loculated. Additional recommendations and suggestions are forthcoming. We will continue to follow and make recommendations along the way. Labs, x-rays, and medications are all reviewed. The patient is due to have hemodialysis today. Time with Patient: Greater than 30
[2022-03-11] MEDS: carvediloL 3.125 MG TAB PO SCH ×2 (12:17→18:23)
[2022-03-11] MEDS: PANTOPRAZOLE 40 MG TABLET PO SCH ×2 (12:17→18:26)
[2022-03-11] MEDS: HEPARIN SODIUM,PORCINE/PF 5,000 UNIT/0.5 ML SYRINGE SQ SCH ×3 (12:17→23:45)
--- NOTE | 2022-03-11 12:48 | P.NPCON ---
History of Present Illness - Reason for Consult end stage renal disease - History of Present Illness Patient is a 72-year-old male with history of end-stage renal disease on hemodialysis on a Thursday schedule. Patient is admitted to the hospital with complaints of shortness of breath and cough productive of white phlegm. No complaints of chest pain nausea vomiting fever chills or abdo cameron pain. Chest x-ray showed evidence of pulmonary vascular congestion and possible pneumonia as well. WBC is not elevated on CBC. Patient is scheduled for hemodialysis today. No history of noncompliance with dialysis treatments as outpatient. Review of Systems As per HPI. Past Medical History Past Medical History: Coronary Artery Disease (CAD), Diabetes Mellitus, Dialysis, Hypertension, Memory Impairment, Renal Disease Additional Past Medical History / Comment(s): CABG, Cataracts History of Any Multi-Drug Resistant Organisms: None Reported Past Surgical History: Adenoidectomy, Tonsillectomy Additional Past Surgical History / Comment(s): Cardiac Bipass (6 at once). Past Anesthesia/Blood Transfusion Reactions: No Reported Reaction Past Psychological History: No Psychological Hx Reported Smoking Status: Former smoker Past Alcohol Use History: None Reported Past Drug Use History: None Reported - Past Family History Daughter(s) Family Medical History: No Reported History Medications and Allergies Home Medications Medication Instructions Recorded Confirmed Type Calcium Acetate [Phoslo] 667 mg PO QID 03/11/22 03/11/22 History Clopidogrel [Plavix] 75 mg PO DAILY 03/11/22 03/11/22 History Escitalopram [Lexapro] 20 mg PO DAILY 03/11/22 03/11/22 History Pantoprazole [Protonix] 40 mg PO DAILY 03/11/22 03/11/22 History Rosuvastatin Calcium 40 mg PO HS 03/11/22 03/11/22 History Torsemide [Demadex] 40 mg PO MOWEFRSA 03/11/22 03/11/22 History carvediloL [Coreg] 3.125 mg PO BID 03/11/22 03/11/22 History Allergies Allergy/AdvReac Type Severity Reaction Status Date / Time cephalexin [From Keflex] Allergy Rash/Hives Verified 03/11/22 07:11 codeine Allergy Rash/Hives Verified 03/11/22 07:11 Physical Exam Vitals: Vital Signs Temp Pulse Pulse Resp BP BP Pulse Ox 03/11/22 11:36 97.7 F 59 L 20 179/76 96 03/11/22 08:55 99.1 F 64 20 180/75 97 03/11/22 07:00 66 16 184/84 95 03/11/22 06:00 64 18 183/80 97 03/11/22 05:00 63 16 179/78 96 03/11/22 04:00 63 18 185/85 96 03/11/22 03:00 62 18 177/81 97 03/11/22 02:00 63 16 177/76 96 03/11/22 00:05 64 16 182/84 98 03/11/22 00:00 64 16 194/84 98 03/10/22 23:00 71 16 200/84 97 03/10/22 22:00 68 18 198/85 98 03/10/22 21:00 65 18 198/85 98 03/10/22 20:01 98.7 F 72 14 172/80 98 Intake and Output 03/10/22 03/11/22 03/11/22 22:59 06:59 14:59 Intake Total 330 Balance 330 Intake: Oral 330 Other: Weight 110.359 kg 110.359 kg Awake, comfortable, no acute distress Examination of the heart S1 and S2 Examination of the lungs bilateral breath sounds are heard, basal crackles heard Abdomen is soft nontender Examination of the lower extremities shows no evidence of edema CPHT exam grossly intact Results - Lab Results Most recent lab results Calcium 9.2 mg/dL (8.4-10.2) 03/10/22 20:13 Magnesium 2.2 mg/dL (1.6-2.3) 03/10/22 20:13 03/10/22 20:13 03/10/22 20:13 Assessment and Plan Assessment: 1. End-stage renal disease on hemodialysis on a Thursday schedule 2. Volume overload 3. Possible pneumonia 4. CK D mineral bone disorder Plan: Hemodialysis today with increase ultrafiltration as tolerated Continue with phosphate binders Continue with antihypertensive medications
[2022-03-11] MEDS: CALCIUM ACETATE 667 MG TAB PO SCH ×2 (16:52→18:23)
[2022-03-11] MEDS: FOLIC ACID-VIT B COMPLEX-VIT C 1 CAP PO SCH (18:22)
[2022-03-11] MEDS: FUROSEMIDE 40 MG TAB PO SCH (18:23)
[2022-03-11] MEDS: ASPIRIN 81 MG PO SCH (18:23)
[2022-03-11] MEDS: ATORVASTATIN 40 MG TAB PO SCH (20:02)
[2022-03-11] MEDS: ESCITALOPRAM 20 MG TAB PO SCH (20:02)
[2022-03-11] MEDS: hydrALAZINE HCL 20 MG/ML 1 ML VIAL IVP PRN (23:40)
--- NOTE | 2022-03-12 00:55 | HP ---
HISTORY AND PHYSICAL HISTORY OF PRESENT ILLNESS: This 72-year-old male in room 27 to get dialysis at this time, came with cough, congestion, shortness of breath, end-stage renal disease on dialysis, previous bypass surgery, hypertension, coronary artery disease, increasing shortness of breath over the past 2 weeks. He has a history of pleural effusions for which had been, pleural effusion tapped. In the past, he was admitted for worsening pleural effusions for possible thoracentesis, possible loculations. Said he was in the ER in the high 80s, will be placed on 2 L. White count is 9.6, hemoglobin is 10.2, platelets 263. Sodium 135, potassium, please see orders. BUN 27, creatinine 5.79, BNP 46222. Chest x-ray, bilateral pleural effusion, right greater than left. Right side is loculated. CT shows bilateral pleural effusion, larger on the right side. No PE. REVIEW OF SYSTEMS: A 14-point review of systems otherwise is negative. PAST MEDICAL HISTORY: Coronary artery disease, diabetes mellitus, dialysis, end-stage renal disease, hypertension, memory impairment, renal disease, hypoxemia, surgery, tonsillectomy, adenoidectomy, cardiac bypass. HOME MEDICINES: 1. PhosLo 667 q.i.d. 2. Plavix 75 mg daily. 3. Lexapro 20 mg daily. 4. Protonix 40 mg daily. 5. Demadex 40 mg Thursday, Thursday, Thursday, Thursday. 6. Coreg 3.125 b.i.d. ALLERGIES: Keflex, codeine. PHYSICAL EXAMINATION: GENERAL: Temperature 97, pulse 60s to 70s, respiratory rate 16-20, blood pressure is super high to 180s over 70s to 80s. CARDIOVASCULAR: S1, S2. LUNGS: Scattered rhonchi and wheeze. HEMATOLOGY: Negative for Homans. PSYCH: Fair mood and affect. EXTREMITIES: 2+ edema. LABS: Reviewed. ASSESSMENT: 1. Hypertension acceleration. 2. End-stage renal disease. 3. Hypoxemic respiratory failure secondary to bilateral pleural perfusions, right greater than left. 4. Fluid overload. 5. History of coronary artery disease, previous bypass grafting. 6. Diabetes mellitus. 7. Hypertension. 8. Nicotine addiction. 9. Hypoxemia secondary to chronic obstructive pulmonary disease, pleural effusions, CHF, end-stage renal disease. Can get thoracentesis by Interventional Radiology which is ordered. Continue with dialysis. Prognosis guarded. Oxygen 2 L at this time. MMODL / IJN: [id number] /
[2022-03-12] MEDS: hydrALAZINE HCL 20 MG/ML 1 ML VIAL IVP PRN (05:42)
[2022-03-12 06:02] LABS: Glucose,Whole Blood 138 mg/dL (70-110)
[2022-03-12] MEDS: PANTOPRAZOLE 40 MG TABLET PO SCH ×2 (06:06→17:34)
[2022-03-12] MEDS: CALCIUM ACETATE 667 MG TAB PO SCH ×3 (06:06→17:34)
[2022-03-12] MEDS: carvediloL 3.125 MG TAB PO SCH ×2 (06:06→17:34)
[2022-03-12 08:56] LABS: Basophils # (A) 0.1 k/uL (0-0.2); Basophils % (A) 1 %; Eosinophils # (A) 0.2 k/uL (0-0.7); Eosinophils % (A) 3 %; HCT 29.5 % (39.0-53.0); HGB 9.6 gm/dL (13.0-17.5); Lymphocytes # (A) 0.7 k/uL (1.0-4.8); Lymphocytes % (A) 10 %; MCH 31.5 pg (25.0-35.0); MCHC 32.6 g/dL (31.0-37.0); MCV 96.6 fL (80.0-100.0); Mean Platelet Volume 8.1; Monocytes # (A) 0.4 k/uL (0-1.0); Monocytes % (A) 6 %; Neutrophils # (A) 5.5 k/uL (1.3-7.7); Neutrophils % (A) 78 %; Platelet Count 238 k/uL (150-450); RBC 3.05 m/uL (4.30-5.90); RDW 15.2 % (11.5-15.5); WBC 7.1 k/uL (3.8-10.6)
[2022-03-12] MEDS ORDERED: amLODIPine 5 MG TAB PO SCH (09:00)
[2022-03-12] MEDS: ASPIRIN 81 MG PO SCH (09:10)
[2022-03-12] MEDS: FOLIC ACID-VIT B COMPLEX-VIT C 1 CAP PO SCH (09:10)
[2022-03-12] MEDS: FUROSEMIDE 40 MG TAB PO SCH (09:10)
[2022-03-12] MEDS: hydrALAZINE HCL 25 MG TAB PO SCH ×3 (09:10→20:17)
[2022-03-12] MEDS: amLODIPine 10 MG TAB PO SCH (09:10)
[2022-03-12 09:20] LABS: Calcium 8.7 mg/dL (8.4-10.2); Potassium 4.3 mmol/L (3.5-5.1)
[2022-03-12] MEDS: HEPARIN SODIUM,PORCINE/PF 5,000 UNIT/0.5 ML SYRINGE SQ SCH ×2 (09:40→17:06)
--- NOTE | 2022-03-12 10:11 | P.CRDCN ---
History of Present Illness Consult date: 03/12/22 Consult reason: congestive heart failure History of present illness: History of present illness: This is a 72-year-old male patient with past medical history of hypertension, hyperlipidemia, diabetes, end-stage renal disease on hemodialysis remote history of tobacco use. Patient gives history of having 6 vessel CABG about 1 year ago at [facility] and also one year prior to that a stent was done at [facility]. Details are not known. Patient states he's never been diagnosed with heart failure. Patient doesn't not follow in the cardiology office. We have been asked to see the patient regarding heart failure. Patient complains of shortness of breath that started yesterday. He denies any weight gain, edema. He has not missed any dialysis treatments and does not consume excess salt. He denies having any chest pain. Blood pressure from arrival was 198/85 EKG sinus rhythm with nonspecific changes Chest x-ray reveals bilateral pneumonia and moderate sized right pleural effusion with loculation. Abnormality significantly increased on the right side compared to old exam. Consider empyema and mesothelioma. CT of the chest reveals bilateral pleural effusions are larger on the right side. No evidence of pulmonary embolism. Calcified pleural plaque. Right lower lobe atelectasis with calcification. WBC 7.1, hemoglobin 9.6, platelet count 238. Sodium 131, potassium 4.3, chloride 97, CO2 26, BUN 24 creatinine 5.1. Blood sugar 201. ProBNP 72,500. Troponin negative 1. Influenza A, influenza B, RSV, Covid 19 not detected Home cardiac medications: Coreg 3.125 mg twice daily, Plavix 75 mg daily, Demad ex 40 mg on Thursday Review Of Systems: At the time of my evaluation: Constitutional: No fever, no chills. No weakness, fatigue or lethargy. EENT: No headache. No dizziness. Lungs: Reports shortness of breath, cough, no sputum production. No wheezing. Cardiovascular: No chest pain, no lower extremity edema. No palpitations. No paroxysmal nocturnal dyspnea. No orthopnea. No lightheadedness or dizziness. No syncopal episodes. Abdominal: No abdominal pain. No nausea, vomiting. No diarrhea. No constipation. No bloody or tarry stools. Genitourinary: No dysuria.. No urinary retention. Musculoskeletal: No myalgias. No muscle weakness, no frequent falls. No back pain. No neck pain. Integumentary: No wounds. No rash. No unusual bruising. Neurologic: No aphasia. No facial droop. No change in mentation. No head injury. No headache. Psychiatric: No depression. No anxiety. Endocrine: No abnormal blood sugars. Physical examination: Gen: This is a 72-year-old patient. He is resting in bed appears to be comfortable and in no acute distress. VS: reviewed HEENT: Head is atraumatic, normocephalic. Pupils equal, round. Sclerae is anicteric. NECK: Supple. No JVD. LUNGS: Clear to auscultation. No wheezes or rhonchi. No intercostal ret ractions. HEART: Regular rate and rhythm. Systolic murmur. ABDOMEN: Soft. No tenderness. EXTREMITIES: No pedal edema. NEUROLOGICAL: Patient is awake, alert and oriented x3. Cranial nerves 2 through 12 are grossly intact. Assessment: Hypertensive crisis Acute diastolic heart failure Coronary artery disease with previous CABG and stent Hypertension Hyperlipidemia Diabetes mellitus End-stage renal disease on hemodialysis Remote history of tobacco use Plan: Increase amlodipine to 10 mg daily, and hydralazine 25 mg 3 times daily Continue aspirin, atorvastatin, Coreg Continue Lasix 40 mg oral daily Obtain 2-D echocardiogram and Doppler study to assess cardiac structure and function Further recommendations to follow based upon clinical course Thank you kindly for this consultation. Nurse practitioner note has been reviewed, I agree with documented findings and plan of care. Patient was seen and examined. Past Medical History Past Medical History: Coronary Artery Disease (CAD), Diabetes Mellitus, Dialysis, Hypertension, Memory Impairment, Renal Disease Additional Past Medical History / Comment(s): CABG, Cataracts History of Any Multi-Drug Resistant Organisms: None Reported Past Surgical History: Adenoidectomy, Tonsillectomy Additional Past Surgical History / Comment(s): Cardiac Bipass (6 at once). Past Anesthesia/Blood Transfusion Reactions: No Reported Reaction Past Psychological History: No Psychological Hx Reported Smoking Status: Former smoker Past Alcohol Use History: None Reported Past Drug Use History: None Reported - Past Family History Daughter(s) Family Medical History: No Reported History Medications and Allergies Home Medications Medication Instructions Recorded Confirmed Type Calcium Acetate [Phoslo] 667 mg PO QID 03/11/22 03/11/22 History Clopidogrel [Plavix] 75 mg PO DAILY 03/11/22 03/11/22 History Escitalopram [Lexapro] 20 mg PO DAILY 03/11/22 03/11/22 History Pantoprazole [Protonix] 40 mg PO DAILY 03/11/22 03/11/22 History Rosuvastatin Calcium 40 mg PO HS 03/11/22 03/11/22 History Torsemide [Demadex] 40 mg PO MOWEFRSA 03/11/22 03/11/22 History carvediloL [Coreg] 3.125 mg PO BID 03/11/22 03/11/22 History Allergies Allergy/AdvReac Type Severity Reaction Status Date / Time cephalexin [From Keflex] Allergy Rash/Hives Verified 03/11/22 07:11 codeine Allergy Rash/Hives Verified 03/11/22 07:11 Physical Exam Vitals: Vital Signs Temp Pulse Resp BP Pulse Ox 03/12/22 05:42 186/77 03/12/22 04:00 98.0 F 68 16 177/67 94 L 03/11/22 23:53 156/68 03/11/22 23:20 97.9 F 63 16 197/77 100 03/11/22 21:30 97.8 F 60 16 174/67 100 03/11/22 20:00 96.9 F L 60 17 153/70 100 03/11/22 18:41 97 F L 58 L 16 149/64 03/11/22 16:40 97.7 F 60 20 182/87 98 03/11/22 11:36 97.7 F 59 L 20 179/76 96 03/11/22 08:55 99.1 F 64 20 180/75 97 Intake and Output 03/11/22 03/12/22 03/12/22 22:59 06:59 14:59 Intake Total 400 Output Total 2402 -2001 Intake: Hemodialysis 400 Output: Stool 2 Hemodialysis 2400 Other: Voiding Method Urinal Urinal # Voids 3 Weight 113.5 kg Results 03/12/22 07:59 03/12/22 07:59 Current Medications Generic Name Dose Route Start Last Admin Trade Name Freq PRN Reason Stop Dose Admin Amlodipine Besylate 5 mg 03/12/22 09:00 Amlodipine 5 Mg Tab PO DAILY ROGER Aspirin 81 mg 03/11/22 09:00 03/11/22 18:23 Aspirin 81 Mg PO 81 mg DAILY ROEGR Administration Atorvastatin Calcium 40 mg 03/11/22 21:00 03/11/22 20:02 Atorvastatin 40 Mg Tab PO 40 mg HS ROGER Administration Calcium Acetate 667 mg 03/11/22 17:30 03/12/22 06:06 Calcium Acetate 667 Mg Tab PO 667 mg TID-W/MEALS ROGER Administration Carvedilol 3.125 mg 03/11/22 07:30 03/12/22 06:06 Carvedilol 3.125 Mg Tab PO 3.125 mg BID-W/MEALS ROGER Administration Escitalopram Oxalate 20 mg 03/11/22 21:00 03/11/22 20:02 Escitalopram 20 Mg Tab PO 20 mg HS ROGER Administration Furosemide 40 mg 03/11/22 09:00 03/11/22 18:23 Furosemide 40 Mg Tab PO 40 mg DAILY ROGER Administration Heparin Sodium (Porcine) 5,000 unit 03/11/22 08:00 03/11/22 23:45 Heparin Sodium,Porcine/Pf 5,000 Unit/0.5 Ml Syringe SQ Not Given Q8HR [facility] Hydralazine HCl 10 mg 03/11/22 23:31 03/12/22 05:42 Hydralazine Hcl 20 Mg/Ml 1 Ml Vial IVP 10 mg Q6HR PRN Administration Blood Pressure - High Miscellaneous Information 1 each 03/10/22 22:50 Rx Info: Iv Contrast Was Given 1 Each Misc MISCELLANE 03/12/22 22:51 DAILY PRN Per Protocol Multivit/Ca Carb/B Cmplx/FA/Prenat 1 each 03/11/22 09:00 03/11/22 18:22 Folic Acid-Vit B Complex-Vit C 1 Cap PO Not Given DAILY [facility] Naloxone HCl 0.2 mg 03/11/22 00:32 Naloxone 0.4 Mg/Ml 1 Ml Vial IV Q2M PRN Opioid Reversal Pantoprazole Sodium 40 mg 03/11/22 07:30 03/12/22 06:06 Pantoprazole 40 Mg Tablet PO 40 mg AC-BID ROGER Administration Intake and Output 03/11/22 03/12/22 03/12/22 22:59 06:59 14:59 Intake Total 400 Output Total 2402 Intake: Hemodialysis 400 Output: Stool 2 Hemodialysis 2400 Other: Voiding Method Urinal Urinal # Voids 3 Weight 113.5 kg 03/10/22 20:13 03/10/22 20:13
--- NOTE | 2022-03-12 11:04 | P.PN ---
Subjective Progress Note Date: 03/12/22 72-year-old male, seen in the emergency room, room #27. This is a patient who was seen in the emergency department initially on March 10. He came into the emergency room with complaints of shortness of breath, cough, and chest pain. The patient does have a history of end-stage renal disease, typically on Thursday, , and Thursday hemodialysis. He also has history of diabetes, hypertension, CAD, and previous bypass grafting. Over the last 10-14 days, the patient admits to increasing shortness of breath, and cough. He also has worsening orthopnea. The patient had a chest x-ray which revealed a pleural effusion, which was noted to be bilaterally, worse on the right side. It also appears to be loculated. The patient is typically not on home oxygen, but his saturations initially in the ER, were in the high 80s. He was placed on 2 L. He is not on any IV fluids. White count 9.6, hemoglobin 10.2, hematocrit 30.9, and platelet count 263,000. Sodium 135, potassium I.0, chloride 96, CO2 29, BUN 27, and creatinine 5.79. N-terminal proBNP was 72,500. Chest x-ray showed bilateral pleural effusion, right greater than left. The right-sided effusion is certainly loculated. The computed tomography scan showed bilateral pleural effusions, larger on the right side. There was no evidence of pulmonary embolism. There was calcified pleural plaque noted. The patient is seen today 03/12/2022 in follow-up on the selective care unit. He is currently sitting up in a chair at the bedside. Awake and alert in no acute distress. Maintaining good O2 saturations in the 90s on room air. No worsening shortness of breath, cough or congestion. No IV fluids. He did receive hemodialysis yesterday with 2.4 L removed. Chest x-ray from today is pending. White count 7.1. Hemoglobin 9.6. Platelets 238. Sodium 131. Potassium 4.6. BUN is 24. Creatinine 5.11. Glucose 201. He remains on oral diuretics. Objective - Vital Signs Vital signs: Vital Signs Temp 98.0 F 03/12/22 04:00 Pulse 67 03/12/22 08:00 Resp 18 03/12/22 08:00 BP 128/66 03/12/22 08:00 Pulse Ox 95 03/12/22 08:00 FiO2 Intake & Output 03/11/22 03/12/22 03/12/22 18:59 06:59 18:59 Intake Total 730 180 Output Total 2402 Balance -1672 180 Weight 110.359 kg 113.5 kg Intake: Oral 330 180 Hemodialysis 400 Output: Stool 2 Hemodialysis 2400 Other: Voiding Method Urinal # Voids 3 - Exam GENERAL EXAM: Alert, active, very pleasant 72-year-old male, on room air, up in a chair, comfortable in no apparent distress. HEAD: Normocephalic. EYES: Normal reaction of pupils, equal size. NOSE: Clear with pink turbinates. THROAT: No erythema or exudates. NECK: No masses, no JVD. CHEST: No chest wall deformity. LUNGS: Equal air entry with us in the bilateral bases right greater than left. CVS: S1 and S2 normal with no audible murmur, regular rhythm. ABDOMEN: No hepatosplenomegaly, normal bowel sounds, no guarding or rigidity. SPINE: No scoliosis or deformity SKIN: No rashes CENTRAL NERVOUS SYSTEM: No focal deficits, tone is normal in all 4 extremities. EXTREMITIES: There is no peripheral edema. No clubbing, no cyanosis. Peripheral pulses are intact. - Labs CBC & Chem 7: 03/12/22 07:59 03/12/22 07:59 Labs: Abnormal Lab Results - Last 24 Hours (Table) 03/12/22 03/12/22 03/12/22 Range/Units 06:00 07:59 07:59 RBC 3.05 L (4.30-5.90) m/uL Hgb 9.6 L (13.0-17.5) gm/dL Hct 29.5 L (39.0-53.0) % Lymphocytes # 0.7 L (1.0-4.8) k/uL Sodium 131 L (137-145) mmol/L Chloride 97 L (98-107) mmol/L BUN 24 H (9-20) mg/dL Creatinine 5.11 H (0.66-1.25) mg/dL Glucose 201 H (74-99) mg/dL POC Glucose (mg/dL) 138 H (70-110) mg/dL Assessment and Plan Assessment: Acute hypoxic respiratory failure, likely related to bilateral right greater than left effusions. The right-sided effusion appears to be loculated. Acute fluid overload, secondary to end-stage renal disease. End-stage renal disease, currently on 3 times a week hemodialysis. History of CAD with previous bypass grafting. History of diabetes mellitus. History of hypertension. Prior history of tobacco use. History of hyperlipidemia. Plan: The patient was seen and evaluated Stable and on room air Medications and labs reviewed Follow-up chest x-ray pending This is significant improvement could be discharged home Otherwise waiting for interventional radiology for thoracentesis Currently off Plavix We'll continue to follow I have personally seen and examined the patient, performed the documentation and the assessment and plan as written. Number of minutes spent on the visit: 10.
--- NOTE | 2022-03-12 11:05 | P.PN ---
Subjective Patient is seen for follow-up for end-stage renal disease. He is maintained on a Thursday schedule. Patient was admitted with shortness of breath and there is some consideration for volume overload as well as pneumonia. Patient was dialyzed yesterday with 2.4 L of ultrafiltration. This morning patient states she is feeling short of breath. He is also being treated for pneumonia. O2 sats at 95% on room air today. Objective - Vital Signs Vital signs: Vital Signs Temp 98.0 F 03/12/22 04:00 Pulse 67 03/12/22 08:00 Resp 18 03/12/22 08:00 BP 128/66 03/12/22 08:00 Pulse Ox 95 03/12/22 08:00 FiO2 Intake & Output 03/11/22 03/12/22 03/12/22 18:59 06:59 18:59 Intake Total 730 180 Output Total 2402 Balance -1672 180 Weight 110.359 kg 113.5 kg Intake: Oral 330 180 Hemodialysis 400 Output: Stool 2 Hemodialysis 2400 Other: Voiding Method Urinal # Voids 3 - Exam Awake, comfortable, no acute distress Examination of the heart S1 and S2 Examination of the lungs bilateral breath sounds are heard Abdomen is soft nontender Examination lower extremities shows no significant edema CHAIR MENDER exam grossly intact - Labs CBC & Chem 7: 03/12/22 07:59 03/12/22 07:59 Labs: Abnormal Lab Results - Last 24 Hours (Table) 03/12/22 03/12/22 03/12/22 Range/Units 06:00 07:59 07:59 RBC 3.05 L (4.30-5.90) m/uL Hgb 9.6 L (13.0-17.5) gm/dL Hct 29.5 L (39.0-53.0) % Lymphocytes # 0.7 L (1.0-4.8) k/uL Sodium 131 L (137-145) mmol/L Chloride 97 L (98-107) mmol/L BUN 24 H (9-20) mg/dL Creatinine 5.11 H (0.66-1.25) mg/dL Glucose 201 H (74-99) mg/dL POC Glucose (mg/dL) 138 H (70-110) mg/dL Assessment and Plan Assessment: 1. End-stage renal disease on hemodialysis on a Thursday schedule 2. Volume overload 3. Possible pneumonia 4. CK D mineral bone disorder Plan: Additional short treatment of hemodialysis today mostly for ultrafiltration. Patient will have his regular scheduled hemodialysis treatment in a.m. This can be done as outpatient if he is discharged today.
[2022-03-12 11:42] LABS: Glucose,Whole Blood 189 mg/dL (70-110)
--- NOTE | 2022-03-12 12:01 | XR ---
EXAMINATION TYPE: XR chest 2V DATE OF EXAM: 03/12/2022 11:50 AM COMPARISON: Chest radiographs from 03/10/2022 TECHNIQUE: XR chest 2V Frontal and lateral views of the chest. CLINICAL INDICATION:Male, 72 years old with history of pleural effusion; FINDINGS: Lungs/Pleura: Persistent moderate to large left pleural effusion with scattered atelectasis and/or pu lmonary vascular congestion. Pulmonary vascularity: [place] to be increase most pronounced on the right Heart/mediastinum: Cardiomediastinal silhouette is partially obscured due to overlying and adjacent o pacities. Musculoskeletal: No acute osseous pathology. IMPRESSION: Similar Large right pleural effusion with suggestion of pulmonary vascular congestion most pronounced on the right and left lung base. Exam not definitely changed from 03/10/2022
[2022-03-12 16:31] LABS: Glucose,Whole Blood 220 mg/dL (70-110)
[2022-03-12 19:58] LABS: Glucose,Whole Blood 233 mg/dL (70-110)
[2022-03-12] MEDS: INSULIN ASPART (NovoLOG) 100 UNIT/ML VIAL SQ SCH (20:17)
[2022-03-12] MEDS: ATORVASTATIN 40 MG TAB PO SCH (20:17)
[2022-03-12] MEDS: ESCITALOPRAM 20 MG TAB PO SCH (20:17)
[2022-03-13] MEDS: HEPARIN SODIUM,PORCINE/PF 5,000 UNIT/0.5 ML SYRINGE SQ SCH ×4 (00:28→23:38)
[2022-03-13 05:50] LABS: Glucose,Whole Blood 147 mg/dL (70-110)
[2022-03-13] MEDS: INSULIN ASPART (NovoLOG) 100 UNIT/ML VIAL SQ SCH ×4 (05:53→20:28)
[2022-03-13] MEDS: CALCIUM ACETATE 667 MG TAB PO SCH ×3 (05:56→17:06)
[2022-03-13] MEDS: PANTOPRAZOLE 40 MG TABLET PO SCH ×2 (05:56→17:06)
[2022-03-13] MEDS: carvediloL 3.125 MG TAB PO SCH ×2 (05:56→17:06)
[2022-03-13] MEDS: ASPIRIN 81 MG PO SCH (09:19)
[2022-03-13] MEDS: hydrALAZINE HCL 50 MG TAB PO SCH ×3 (09:19→20:27)
[2022-03-13] MEDS: amLODIPine 10 MG TAB PO SCH (09:19)
[2022-03-13] MEDS: FOLIC ACID-VIT B COMPLEX-VIT C 1 CAP PO SCH (09:22)
[2022-03-13] MEDS: FUROSEMIDE 40 MG TAB PO SCH (09:22)
--- NOTE | 2022-03-13 10:10 | CA ---
Transthoracic Echo Report Name: Aldo Turpin Age: 72 Gender: M : 1950 Exam Date: 03/12/2022 13:41 Exam Location: [place] [facility] Ht (in): 76 Wt (lb): 250 Ordering Physician: Sana Dukes Attending/Referring Phys: [id number], Roseline Finishing Tunnel Operator Sherrie Rueda RDCS Procedure CPT: Indications: LVF Cardiac Hx: Technical Quality: Technically difficult study Contrast 1: Lumason Total Dose (mL): 4 Contrast 2: Total Dose (mL): MEASUREMENTS (Male / Female) Normal Values 2D ECHO LV Diastolic Diameter PLAX 4.8 cm 4.2 - 5.9 / 3.9 - 5.3 cm LV Systolic Diameter PLAX 3.6 cm IVS Diastolic Thickness 1.7 cm 0.6 - 1.0 / 0.6 - 0.9 cm LVPW Diastolic Thickness 1.6 cm 0.6 - 1.0 / 0.6 - 0.9 cm LV Relative Wall Thickness 0.7 RV Internal Dim ED PLAX 4.1 cm LA Volume 123.4 cm??? 18 - 58 / 22 - 52 cm??? M-MODE Aortic Root Diameter MM 4.0 cm LA Systolic Diameter MM 4.4 cm LA Ao Ratio MM 1.1 AV Cusp Separation MM 2.0 cm DOPPLER AV Peak Velocity 127.2 cm/s AV Peak Gradient 6.5 mmHg AI Peak Velocity 308.2 cm/s AI Peak Gradient 38.0 mmHg AI Pressure Half Time 512.8 ms LVOT Peak Velocity 89.6 cm/s LVOT Peak Gradient 3.2 mmHg MV Area PHT 3.5 cm??? Mitral E Point Velocity 115.8 cm/s Mitral A Point Velocity 111.0 cm/s Mitral E to A Ratio 1.0 MV Deceleration Time 242.4 ms MV E' Velocity 6.8 cm/s Mitral E to MV E' Ratio 17.0 FINDINGS Left Ventricle Moderately increased septal wall thickness. Left ventricular cavity size normal. Left ventricular ejection fraction is estimated at 50-55 %. Abnormal (paradoxical) septal motion consistent with postoperative state. Right Ventricle Moderate right ventricular dilatation. Right Atrium Moderate right atrial dilatation. Left Atrium Severely increased left atrial volume. Moderately increased left atrial area. Mitral Valve Moderate mitral annular calcification. Mitral valve thickened. [id number] mitral regurgitation. Aortic Valve No aortic valve stenosis or regurgitation. Tricuspid Valve Mild tricuspid regurgitation. Pulmonic Valve Trace pulmonic regurgitation. Pericardium No pericardial effusion. Aorta Normal size aortic root and proximal ascending aorta. CONCLUSIONS LVH with ejection fraction of the lower limits of normal of about 50-55% RV enlargement 2+ mitral regurgitation Previewed by: Dr. Gama Yuan MD (Electronically Signed) Final Date: 13 March 2022 10:09
--- NOTE | 2022-03-13 10:43 | P.PN ---
Subjective Progress Note Date: 03/13/22 72-year-old male, seen in the emergency room, room #27. This is a patient who was seen in the emergency department initially on March 10. He came into the emergency room with complaints of shortness of breath, cough, and chest pain. The patient does have a history of end-stage renal disease, typically on Thursday, , and Thursday hemodialysis. He also has history of diabetes, hypertension, CAD, and previous bypass grafting. Over the last 10-14 days, the patient admits to increasing shortness of breath, and cough. He also has worsening orthopnea. The patient had a chest x-ray which revealed a pleural effusion, which was noted to be bilaterally, worse on the right side. It also appears to be loculated. The patient is typically not on home oxygen, but his saturations initially in the ER, were in the high 80s. He was placed on 2 L. He is not on any IV fluids. White count 9.6, hemoglobin 10.2, hematocrit 30.9, and platelet count 263,000. Sodium 135, potassium I.0, chloride 96, CO2 29, BUN 27, and creatinine 5.79. N-terminal proBNP was 72,500. Chest x-ray showed bilateral pleural effusion, right greater than left. The right-sided effusion is certainly loculated. The computed tomography scan showed bilateral pleural effusions, larger on the right side. There was no evidence of pulmonary embolism. There was calcified pleural plaque noted. The patient is seen today 03/12/2022 in follow-up on the selective care unit. He is currently sitting up in a chair at the bedside. Awake and alert in no acute distress. Maintaining good O2 saturations in the 90s on room air. No worsening shortness of breath, cough or congestion. No IV fluids. He did receive hemodialysis yesterday with 2.4 L removed. Chest x-ray from today is pending. White count 7.1. Hemoglobin 9.6. Platelets 238. Sodium 131. Potassium 4.6. BUN is 24. Creatinine 5.11. Glucose 201. He remains on oral diuretics. The patient is seen today 03/13/2022 in follow-up on the selective care unit. Currently resting comfortably in bed. Awake and alert in no acute distress. He is maintaining O2 saturations in the 90s on room air. No IV fluids currently. Chest x-ray continues to show right-sided loculated pleural effusion. Interventional radiologist for thoracentesis once his Plavix is held for 5 days. Otherwise the patient is doing well. No complaints. Echocardiogram reveals preserved left ventricular systolic function with ejection fraction of 50-55%. Blood glucose 147. Troponin negative 1. He remains on oral diuretics. Heparin for DVT prophylaxis. He should be receiving hemodialysis today. Objective - Vital Signs Vital signs: Vital Signs Temp 97.2 F L 03/13/22 08:00 Pulse 60 03/13/22 08:00 Resp 18 03/13/22 08:00 BP 138/63 03/13/22 08:00 Pulse Ox 96 03/13/22 08:00 FiO2 21 03/12/22 20:59 Intake & Output 03/12/22 03/13/22 03/13/22 18:59 06:59 18:59 Intake Total 840 Output Total 1999 Balance -1160 Weight 114 kg Intake: Oral 540 Hemodialysis 300 Output: Hemodialysis 1999 Other: Voiding Method Urinal # Voids 2 - Exam GENERAL EXAM: Alert, very pleasant 72-year-old male, on room air, resting in bed, comfortable in no apparent distress. HEAD: Normocephalic. EYES: Normal reaction of pupils, equal size. NOSE: Clear with pink turbinates. THROAT: No erythema or exudates. NECK: No masses, no JVD. CHEST: No chest wall deformity. LUNGS: Equal air entry with crackles in the bilateral bases right greater than left. CVS: S1 and S2 normal with no audible murmur, regular rhythm. ABDOMEN: No hepatosplenomegaly, normal bowel sounds, no guarding or rigidity. SPINE: No scoliosis or deformity SKIN: No rashes CENTRAL NERVOUS SYSTEM: No focal deficits, tone is normal in all 4 extremities. EXTREMITIES: There is no peripheral edema. No clubbing, no cyanosis. Peripheral pulses are intact. - Labs CBC & Chem 7: 03/12/22 07:59 03/12/22 07:59 Labs: Abnormal Lab Results - Last 24 Hours (Table) 03/12/22 03/12/22 03/12/22 Range/Units 11:40 16:30 19:56 POC Glucose (mg/dL) 189 H 220 H 233 H (70-110) mg/dL 03/13/22 Range/Units 05:48 POC Glucose (mg/dL) 147 H (70-110) mg/dL Assessment and Plan Assessment: Acute hypoxic respiratory failure, likely related to bilateral right greater than left effusions. The right-sided effusion appears to be loculated. Awaiting IR for ultrasound-guided thoracentesis once he is off his Plavix 5 days Acute fluid overload, secondary to end-stage renal disease. End-stage renal disease, currently on 3 times a week hemodialysis. Thursday schedule History of CAD with previous bypass grafting. History of diabetes mellitus. History of hypertension. Prior history of tobacco use. History of hyperlipidemia. Plan: The patient was seen and evaluated Chest x-ray, medications and labs reviewed Remains with a right-sided loculated effusion Awaiting ultrasound-guided thoracentesis Currently off Plavix To receive hemodialysis today We'll continue to follow I have personally seen and examined the patient, performed the documentation and the assessment and plan as written. Number of minutes spent on the visit: 10.
--- NOTE | 2022-03-13 10:44 | P.PN ---
Subjective Progress Note Date: 03/13/22 History of present illness: This is a 72-year-old male patient with past medical history of hypertension, hyperlipidemia, diabetes, end-stage renal disease on hemodialysis remote history of tobacco use. Patient gives history of having 6 vessel CABG about 1 year ago at [facility] and also one year prior to that a stent was done at [facility]. Details are not known. Patient states he's never been diagnosed with heart failure. Patient doesn't not follow in the cardiology office. We have been asked to see the patient regarding heart failure. Patient complains of shortness of breath that started yesterday. He denies any weight gain, edema. He has not missed any dialysis treatments and does not consume excess salt. He denies having any chest pain. Blood pressure from arrival was 198/85 EKG sinus rhythm with nonspecific changes Chest x-ray reveals bilateral pneumonia and moderate sized right pleural effusion with loculation. Abnormality significantly increased on the right side compared to old exam. Consider empyema and mesothelioma. CT of the chest reveals bilateral pleural effusions are larger on the right side. No evidence of pulmonary embolism. Calcified pleural plaque. Right lower lobe atelectasis with calcification. WBC 7.1, hemoglobin 9.6, platelet count 238. Sodium 131, potassium 4.3, chloride 97, CO2 26, BUN 24 creatinine 5.1. Blood sugar 201. ProBNP 72,500. Troponin negative 1. Influenza A, influenza B, RSV, Covid 19 not detected Home cardiac medications: Coreg 3.125 mg twice daily, Plavix 75 mg daily, Demadex 40 mg on 03/13 Patient states he continues to have a cough and is not feeling any better. He denies any chest pain. Blood pressure is elevated at 176/78, heart rate in the 60s. Echocardiogram reveals left ventricular hypertrophy with EF 50-55%, RV enlargement, 2+ mitral regurgitation Repeat chest x-ray reveals similar large right pleural effusion with suggestion of pulmonary vascular congestion most pronounced on the right and left lung base. Physical examination: Gen: This is a 72-year-old patient. He is resting in bed appears to be comfortable and in no acute distress. VS: reviewed HEENT: Head is atraumatic, normocephalic. Pupils equal, round. Sclerae is anicteric. NECK: Supple. No JVD. LUNGS: Diminished bilaterally. No intercostal retractions. HEART: Regular rate and rhythm. Systolic murmur. ABDOMEN: Soft. No tenderness. EXTREMITIES: No pedal edema. NEUROLOGICAL: Patient is awake, alert. Assessment: Hypertensive crisis Acute diastolic heart failure Coronary artery disease with previous CABG and stent Hypertension Hyperlipidemia Diabetes mellitus End-stage renal disease on hemodialysis Remote history of tobacco use Plan: Continue amlodipine 10 mg daily, and increase hydralazine to 50 mg 3 times daily Continue aspirin, atorvastatin, Coreg Continue Lasix 40 mg oral daily Obtain troponin 2 Further recommendations to follow based upon clinical course Thank you kindly for this consultation. Nurse practitioner note has been reviewed, I agree with documented findings and plan of care. Patient was seen and examined. Objective - Vital Signs Vital signs: Vital Signs Temp 97.9 F 03/12/22 20:20 Pulse 65 03/13/22 03:50 Resp 18 03/13/22 03:50 BP 176/78 03/13/22 03:50 Pulse Ox 93 L 03/13/22 03:50 FiO2 21 03/12/22 20:59 Intake & Output 03/12/22 03/13/22 03/13/22 18:59 06:59 18:59 Intake Total 840 Output Total 1999 Balance -1160 Weight 114 kg Intake: Oral 540 Hemodialysis 300 Output: Hemodialysis 1999 Other: Voiding Method Urinal # Voids 2 - Labs CBC & Chem 7: 03/12/22 07:59 03/12/22 07:59 Labs: Abnormal Lab Results - Last 24 Hours (Table) 03/12/22 03/12/22 03/12/22 Range/Units 07:59 07:59 11:40 RBC 3.05 L (4.30-5.90) m/uL Hgb 9.6 L (13.0-17.5) gm/dL Hct 29.5 L (39.0-53.0) % Lymphocytes # 0.7 L (1.0-4.8) k/uL Sodium 131 L (137-145) mmol/L Chloride 97 L (98-107) mmol/L BUN 24 H (9-20) mg/dL Creatinine 5.11 H (0.66-1.25) mg/dL Glucose 201 H (74-99) mg/dL POC Glucose (mg/dL) 189 H (70-110) mg/dL 03/12/22 03/12/22 03/13/22 Range/Units 16:30 19:56 05:48 RBC (4.30-5.90) m/uL Hgb (13.0-17.5) gm/dL Hct (39.0-53.0) % Lymphocytes # (1.0-4.8) k/uL Sodium (137-145) mmol/L Chloride (98-107) mmol/L BUN (9-20) mg/dL Creatinine (0.66-1.25) mg/dL Glucose (74-99) mg/dL POC Glucose (mg/dL) 220 H 233 H 147 H (70-110) mg/dL
[2022-03-13 11:42] LABS: Glucose,Whole Blood 151 mg/dL (70-110)
--- NOTE | 2022-03-13 15:30 | P.GSCN ---
History of Present Illness Consult date: 03/13/22 Reason for Consult: Left-sided pleural effusion, thoracentesis Requesting physician: Isaak Amaya History of present illness: This is a 72-year-old gentleman who follows on an outpatient basis with Dr. Brice Davila for his primary care service. He has a past medical history significant for end-stage renal disease in which he receives hemodialysis on Tuesdays, and Saturdays, coronary artery disease status post coronary artery bypass grafting surgery at [facility] around 1 year ago, previous left pleural effusion, status post left sided thoracentesis 2 in the past, hypertension, diabetes mellitus, hyperlipidemia and remote history of nicotine dependence and which he quit smoking 15-20 years ago. The patient presented to the hospital here at [facility] on 03/10/2022 with complaints of shortness of breath and episodes of chest pain. He denies any recent fever, chills, nausea, vomiting, diaphoresis, headache, lightheadedness, palpitations, presyncope or syncope. In the emergency department a chest x-ray was completed which the report showed bilateral pneumonia and moderate-sized right pleural effusion with loculation abnormalities. For follow-up a computed tomography scan of his chest with contrast was completed which the report showed bilateral pleural effusions, larger on the right side, no evidence of pulmonary embolism, calcified pleural plaque, and some right lower lobe atelectasis with calcification. Due to the patient's presenting symptoms and findings of bi lateral pleural effusions, right side greater than left a consult was placed to pulmonary medicine for further evaluation. The right sided pleural effusion appeared to be loculated and interventional radiology was consulted to perform an ultrasound-guided thoracentesis. Subsequently, the patient is taking Plavix and the patient is scheduled to undergo a thoracentesis performed by interventional radiology on 03/17/2022. A consult was placed to cardiothoracic surgery for further evaluation of the pleural effusion. Review of Systems A 14 point review of systems was negative except as mentioned in the HPI. Past Medical History Past Medical History: Coronary Artery Disease (CAD), Diabetes Mellitus, Dialysis, Hyperlipidemia, Hypertension, Memory Impairment, Renal Disease Additional Past Medical History / Comment(s): CABG, Cataracts History of Any Multi-Drug Resistant Organisms: None Reported Past Surgical History: Adenoidectomy, Tonsillectomy Additional Past Surgical History / Comment(s): 6 vessel coronary bypass, bilateral cataract surgery, left arm hemodialysis AV fistula. Past Anesthesia/Blood Transfusion Reactions: No Reported Reaction Past Psychological History: Depression Smoking Status: Former smoker Past Alcohol Use History: None Reported Past Drug Use History: None Reported - Past Family History Daughter(s) Family Medical History: No Reported History Medications and Allergies Home Medications Medication Instructions Recorded Confirmed Type Calcium Acetate [Phoslo] 667 mg PO QID 03/11/22 03/11/22 History Clopidogrel [Plavix] 75 mg PO DAILY 03/11/22 03/11/22 History Escitalopram [Lexapro] 20 mg PO DAILY 03/11/22 03/11/22 History Pantoprazole [Protonix] 40 mg PO DAILY 03/11/22 03/11/22 History Rosuvastatin Calcium 40 mg PO HS 03/11/22 03/11/22 History Torsemide [Demadex] 40 mg PO [id number] 03/11/22 03/11/22 History carvediloL [Coreg] 3.125 mg PO BID 03/11/22 03/11/22 History Allergies Allergy/AdvReac Type Severity Reaction Status Date / Time cephalexin [From Keflex] Allergy Rash/Hives Verified 03/11/22 07:11 codeine Allergy Rash/Hives Verified 03/11/22 07:11 Surgical - Exam Vital Signs Temp Pulse Resp BP Pulse Ox 98.7 F 72 14 172/80 98 03/10/22 20:01 03/10/22 20:01 03/10/22 20:01 03/10/22 20:01 03/10/22 20:01 - General well developed, well nourished, no distress, no pain, chronically ill, obese - Eyes PERRL, normal ocular movement, no pale, no icteric - ENT normal pinna, normal nares, normal mucosa, no hearing loss, no congestion - Neck Neck is supple, no lymphadenopathy. no masses, no bruits, trachea midline, no venous distension - Respiratory Lungs sounds are essentially clear throughout, diminished to his bilateral bases. Respirations are symmetrical and nonlabored. Currently on room air with oxygen saturations 97%. - Cardiovascular Regular rhythm and rate. S1 and S2 present, negative for S3 or gallop. Soft systolic murmur. - Abdomen Abdomen is soft, nondistended and non-tender. Active bowel sounds present in all 4 abdominal quadrants. No guarding or rigidity. - Genitourinary Chronic hemodialysis - Rectum Deferred - Integumentary Skin is warm and dry. No clubbing or cyanosis present. no rash, no growths, no abnormal pigmentation - Neurologic No focal deficits. normal coordination, normal sensation - Musculoskeletal Moves all 4 extremities with equal strength bilaterally. - Psychiatric oriented to time, oriented to person, oriented to place, speech is normal, memory intact Results - Labs 03/12/22 07:59 03/12/22 07:59 Abnormal Lab Results - Last 24 Hours (Table) 03/12/22 03/12/22 03/13/22 Range/Units 16:30 19:56 05:48 POC Glucose (mg/dL) 220 H 233 H 147 H (70-110) mg/dL 03/13/22 Range/Units 11:39 POC Glucose (mg/dL) 151 H (70-110) mg/dL - Imaging Chest x-ray: report reviewed, image reviewed CT scan - chest: report reviewed, image reviewed Assessment and Plan Assessment: 1. Bilateral pleural effusions, right greater than left 2. Acute onset of shortness of breath, likely secondary to above 3. Acute diastolic heart failure 4. End-stage renal disease, receives hemodialysis treatments 3 times a week 5. History of coronary artery disease status post coronary artery bypass grafting surgery 6 vessels, status post PCI 6. Hypertension 7. Hyperlipidemia 8. Diabetes mellitus 9. Remote history of nicotine dependence, quit smoking 15-20 years ago. Plan: The patient was seen and examined at his bedside on the cardiac stepdown unit. His target and diagnostics were reviewed. This case was discussed in detail with Dr. Maury Wilkinson from cardiothoracic surgery. No surgical intervention is warranted at this time, the patient is scheduled for a ultrasound-guided thoracentesis by interventional radiology on 03/17/2022 as the patient was taking Plavix. Medical management other comorbidities per primary care service. Encourage use of incentive spirometry 10 times every hour while awake. We will continue to follow the patient on it at needed basis, please feel free to call for any further questions. Thank you Dr. Amaya for this consult I have personally seen and examined the patient, performed the documentation and the assessment and plan as written. 30 minutes spent on the visit . Marcell AZAR
[2022-03-13 16:37] LABS: Glucose,Whole Blood 284 mg/dL (70-110)
[2022-03-13 17:26] LABS: Calcium 8.3 mg/dL (8.4-10.2); Potassium 3.8 mmol/L (3.5-5.1)
[2022-03-13 20:19] LABS: Glucose,Whole Blood 197 mg/dL (70-110)
[2022-03-13] MEDS: ATORVASTATIN 40 MG TAB PO SCH (20:27)
[2022-03-13] MEDS: ESCITALOPRAM 20 MG TAB PO SCH (20:27)
--- NOTE | 2022-03-13 20:42 | P.PN ---
Subjective Patient is seen for follow-up for end-stage renal disease. He is maintained on a Thursday schedule. Patient was admitted with shortness of breath and there is some consideration for volume overload as well as pneumonia. Awaiting thoracentesis for loculated R pleural effusion on Thursday03/17/22 after plavix is on hold. Seen on Hemodialysis . Tolerating Rx well. Objective - Vital Signs Vital signs: Vital Signs Temp 97.2 F L 03/13/22 16:00 Pulse 72 03/13/22 16:00 Resp 18 03/13/22 16:00 BP 122/62 03/13/22 16:00 Pulse Ox 96 03/13/22 16:00 FiO2 21 03/12/22 20:59 Intake & Output 03/13/22 03/13/22 03/14/22 06:59 18:59 06:59 Intake Total 20 Output Total 100 Balance -80 Weight 114 kg Intake: IV 20 Invasive Line 1 20 Output: Urine 100 Other: Voiding Method Urinal # Voids 2 - Exam Awake, comfortable, no acute distress Examination of the heart S1 and S2 Examination of the lungs bilateral breath sounds are heard Abdomen is soft nontender Examination lower extremities shows no significant edema [employer] exam grossly intact - Labs CBC & Chem 7: 03/12/22 07:59 03/13/22 16:54 Labs: Abnormal Lab Results - Last 24 Hours (Table) 03/13/22 03/13/22 03/13/22 Range/Units 05:48 11:39 16:33 Sodium (137-145) mmol/L Chloride (98-107) mmol/L Carbon Dioxide (22-30) mmol/L Creatinine (0.66-1.25) mg/dL Glucose (74-99) mg/dL POC Glucose (mg/dL) 147 H 151 H 284 H (70-110) mg/dL Calcium (8.4-10.2) mg/dL 03/13/22 03/13/22 Range/Units 16:54 20:17 Sodium 134 L (137-145) mmol/L Chloride 95 L (98-107) mmol/L Carbon Dioxide 33 H (22-30) mmol/L Creatinine 4.16 H (0.66-1.25) mg/dL Glucose 282 H (74-99) mg/dL POC Glucose (mg/dL) 197 H (70-110) mg/dL Calcium 8.3 L (8.4-10.2) mg/dL Assessment and Plan Assessment: 1. End-stage renal disease on hemodialysis on a Thursday schedule 2. Volume overload 3. Possible pneumonia, right pleural effusion, loculated. 4. CK D mineral bone disorder Plan: Next HD on 03/15/22.
--- NOTE | 2022-03-14 00:36 | PN ---
PROGRESS NOTE SUBJECTIVE: A 72-year-old white male whose breathing is slightly improved with dialysis x2 days straight. The patient does want a thoracentesis done for large right pleural effusion. OBJECTIVE: CARDIOVASCULAR: S1, S2. Rales at the right base. HEMATOLOGY: Negative for Homans. PSYCH: Fair mood and affect. ASSESSMENT: Depression, hypertension, diabetes mellitus, pleural effusion large, possibly due to end-stage renal disease versus empyema versus heart failure. Prognosis guarded. Wait for thoracentesis on Thursday. Stay over the weekend as the patient does not have a ride back. He does not want to come back and wants thoracentesis done. His Plavix is on hold. MMODL / IJN: [id number] /
[2022-03-14 07:36] LABS: Glucose,Whole Blood 156 mg/dL (70-110)
--- NOTE | 2022-03-14 08:45 | P.PN ---
Subjective Progress Note Date: 03/14/22 HISTORY OF PRESENT ILLNESS: This is a 72-year-old male patient with past medical history of hypertension, hyperlipidemia, diabetes, end-stage renal disease on hemodialysis remote history of tobacco use. Patient gives history of having 6 vessel CABG about 1 year ago at [facility] and also one year prior to that a stent was done at [facility]. Details are not known. Patient states he's never been diagnosed with heart failure. Patient doesn't not follow in the cardiology office. We have been asked to see the patient regarding heart failure. Patient complains of shortness of breath that started yesterday. He denies any weight gain, edema. He has not missed any dialysis treatments and does not consume excess salt. He denies having any chest pain. Blood pressure from arrival was 198/85 EKG sinus rhythm with nonspecific changes Chest x-ray reveals bilateral pneumonia and moderate sized right pleural effusion with loculation. Abnormality significantly increased on the right side compared to old exam. Consider empyema and mesothelioma. CT of the chest reveals bilateral pleural effusions are larger on the right side. No evidence of pulmonary embolism. Calcified pleural plaque. Right lower lobe atelectasis with calcification. WBC 7.1, hemoglobin 9.6, platelet count 238. Sodium 131, potassium 4.3, chloride 97, CO2 26, BUN 24 creatinine 5.1. Blood sugar 201. ProBNP 72,500. Troponin negative 1. Influenza A, influenza B, RSV, Covid 19 not detected Home cardiac medications: Coreg 3.125 mg twice daily, Plavix 75 mg daily, Demadex 40 mg on 03/13 Patient states he continues to have a cough and is not feeling any better. He denies any chest pain. Blood pressure is elevated at 176/78, heart rate in the 60s. Echocardiogram reveals left ventricular hypertrophy with EF 50-55%, RV enlargement, 2+ mitral regurgitation Repeat chest x-ray reveals similar large right pleural effusion with suggestion of pulmonary vascular congestion most pronounced on the right and left lung base. 03/14/2022 Patient examined this morning at the bedside. patient denies chest pain or pressure. He denies shortness of breath. Blood pressure this morning is elevated with a systolic in the 180s. However previous readings are better controlled. Patient was just started on Norvasc 10 mg daily 2 days ago. PHYSICAL EXAM: VITAL SIGNS: Reviewed. GENERAL: Well-developed in no acute distress. NECK: Supple. No JVD or thyromegaly LUNGS: Respirations even and unlabored. Lungs essentially clear to auscultation bilaterally. HEART: Regular rate and rhythm. S1 and S2 heard. EXTREMITIES: Normal range of motion. No clubbing or cyanosis. Peripheral pulses intact. No lower extremity edema ASSESSMENT: Hypertensive crisis Acute diastolic heart failure, appears euvolemic Coronary artery disease with previous CABG and stent Hypertension Hyperlipidemia Diabetes mellitus End-stage renal disease on hemodialysis Remote history of tobacco use PLAN: we will continue with the same medications at this time Continue to monitor blood pressure Patient is stable from a cardiac standpoint We will sign off. Please reconsult if needed. Nurse practitioner note has been reviewed by physician. Signing provider agrees with the documented findings, assessment, and plan of care. Objective - Vital Signs Vital signs: Vital Signs Temp 97.6 F 03/14/22 07:09 Pulse 69 03/14/22 07:09 Resp 16 03/14/22 07:09 BP 184/81 03/14/22 07:09 Pulse Ox 98 03/14/22 07:09 FiO2 21 03/12/22 20:59 Intake & Output 03/13/22 03/14/22 03/14/22 18:59 06:59 18:59 Intake Total 20 590 Output Total 100 Balance -80 590 Intake: IV 20 Invasive Line 1 20 Oral 590 Output: Urine 100 Other: Voiding Method Urinal - Labs CBC & Chem 7: 03/12/22 07:59 03/13/22 16:54 Labs: Abnormal Lab Results - Last 24 Hours (Table) 03/13/22 03/13/22 03/13/22 Range/Units 11:39 16:33 16:54 Sodium 134 L (137-145) mmol/L Chloride 95 L (98-107) mmol/L Carbon Dioxide 33 H (22-30) mmol/L Creatinine 4.16 H (0.66-1.25) mg/dL Glucose 282 H (74-99) mg/dL POC Glucose (mg/dL) 151 H 284 H (70-110) mg/dL Calcium 8.3 L (8.4-10.2) mg/dL 03/13/22 03/14/22 Range/Units 20:17 07:13 Sodium (137-145) mmol/L Chloride (98-107) mmol/L Carbon Dioxide (22-30) mmol/L Creatinine (0.66-1.25) mg/dL Glucose (74-99) mg/dL POC Glucose (mg/dL) 197 H 156 H (70-110) mg/dL Calcium (8.4-10.2) mg/dL
[2022-03-14] MEDS: CALCIUM ACETATE 667 MG TAB PO SCH ×3 (09:43→16:45)
[2022-03-14] MEDS: INSULIN ASPART (NovoLOG) 100 UNIT/ML VIAL SQ SCH ×4 (09:43→21:41)
[2022-03-14] MEDS: FUROSEMIDE 40 MG TAB PO SCH (09:43)
[2022-03-14] MEDS: carvediloL 3.125 MG TAB PO SCH ×2 (09:43→16:47)
[2022-03-14] MEDS: ASPIRIN 81 MG PO SCH (09:43)
[2022-03-14] MEDS: hydrALAZINE HCL 50 MG TAB PO SCH ×2 (09:43→16:45)
[2022-03-14] MEDS: amLODIPine 10 MG TAB PO SCH (09:43)
[2022-03-14] MEDS: HEPARIN SODIUM,PORCINE/PF 5,000 UNIT/0.5 ML SYRINGE SQ SCH ×3 (09:44→23:54)
[2022-03-14] MEDS: PANTOPRAZOLE 40 MG TABLET PO SCH ×2 (09:44→16:47)
[2022-03-14] MEDS: FOLIC ACID-VIT B COMPLEX-VIT C 1 CAP PO SCH (09:44)
--- NOTE | 2022-03-14 10:46 | P.CONS ---
History of Present Illness - Reason for Consult Consult date: 03/14/22 wound care - History of Present Illness This is a 72-year-old gentleman being seen on [address] for a nonhealing diabetic foot ulcer to the right plantar foot. Patient states that he has had the ulcer for approximately 3-4 months. He routinely we'll see podiatry for the ulceration. They will treatment and apply a cream to the site. At this time patient has no dressings to the site. Patient has a diabetic foot ulcer to the right plantar forefoot that measures approximately 2.0 x 1.2 x 0.1 cm with an eschar In place no granulation noted to the site. Calluses noted to the periwound. No drainage present. Review Of Systems: Constitutional: No fever, no chills, no night sweats. No weight change. No weakness, fatigue or lethargy. No daytime sleepiness. Integumentary:reports wounds, no lesions. No rash or pruritus. No unusual bruising. No change in hair or nails. Physical exam: General Appearance: Alert, cooperative, no distress, appears stated age. Skin: See HPI all other Skin color, texture, tugor normal, no rashes or lesions. Neurologic: Alert oriented x3 Assessment: 1. Diabetic foot ulcer with fatty layer exposure 2. Non-pressure ulceration with fat layer exposure to the right forefoot Plan: 1. No dressings ordered at this time. Patient to return to podiatry for further wound care. Thank you for the consultation any questions please contact the wound care center DNP note has been reviewed and discussed with Dr. Phillips and the impression and plan of care has been directed as dictated. Past Medical History Past Medical History: Coronary Artery Disease (CAD), Diabetes Mellitus, Dialysis, Hyperlipidemia, Hypertension, Memory Impairment, Renal Disease Additional Past Medical History / Comment(s): CABG, Cataracts History of Any Multi-Drug Resistant Organisms: None Reported Past Surgical History: Adenoidectomy, Tonsillectomy Additional Past Surgical History / Comment(s): 6 vessel coronary bypass, bilateral cataract surgery, left arm hemodialysis AV fistula. Past Anesthesia/Blood Transfusion Reactions: No Reported Reaction Past Psychological History: Depression Smoking Status: Former smoker Past Alcohol Use History: None Reported Past Drug Use History: None Reported - Past Family History Daughter(s) Family Medical History: No Reported History Medications and Allergies Home Medications Medication Instructions Recorded Confirmed Type Calcium Acetate [Phoslo] 667 mg PO QID 03/11/22 03/11/22 History Clopidogrel [Plavix] 75 mg PO DAILY 03/11/22 03/11/22 History Escitalopram [Lexapro] 20 mg PO DAILY 03/11/22 03/11/22 History Pantoprazole [Protonix] 40 mg PO DAILY 03/11/22 03/11/22 History Rosuvastatin Calcium 40 mg PO HS 03/11/22 03/11/22 History Torsemide [Demadex] 40 mg PO [id number] 03/11/22 03/11/22 History carvediloL [Coreg] 3.125 mg PO BID 03/11/22 03/11/22 History Allergies Allergy/AdvReac Type Severity Reaction Status Date / Time cephalexin [From Keflex] Allergy Rash/Hives Verified 03/11/22 07:11 codeine Allergy Rash/Hives Verified 03/11/22 07:11 Physical Exam Vitals: Vital Signs Temp Pulse Pulse Resp BP Pulse Ox 03/14/22 08:21 98 03/14/22 07:09 97.6 F 69 16 184/81 98 03/14/22 02:00 98.7 F 78 16 155/68 93 L 03/13/22 20:25 99 F 67 18 114/57 97 03/13/22 16:00 97.2 F L 72 18 122/62 96 03/13/22 11:20 97.5 F L 64 18 151/71 97 Intake and Output 03/13/22 03/14/22 03/14/22 22:59 06:59 14:59 Intake Total 590 Output Total 100 Balance -100 590 Intake: Oral 590 Output: Urine 100 Other: Voiding Method Urinal Results CBC & Chem 7: 03/12/22 07:59 03/13/22 16:54 Labs: Abnormal Lab Results - Last 24 Hours (Table) 03/13/22 03/13/22 03/13/22 Range/Units 11:39 16:33 16:54 Sodium 134 L (137-145) mmol/L Chloride 95 L (98-107) mmol/L Carbon Dioxide 33 H (22-30) mmol/L Creatinine 4.16 H (0.66-1.25) mg/dL Glucose 282 H (74-99) mg/dL POC Glucose (mg/dL) 151 H 284 H (70-110) mg/dL Calcium 8.3 L (8.4-10.2) mg/dL 03/13/22 03/14/22 Range/Units 20:17 07:13 Sodium (137-145) mmol/L Chloride (98-107) mmol/L Carbon Dioxide (22-30) mmol/L Creatinine (0.66-1.25) mg/dL Glucose (74-99) mg/dL POC Glucose (mg/dL) 197 H 156 H (70-110) mg/dL Calcium (8.4-10.2) mg/dL Assessment and Plan (1) Type 2 diabetes mellitus with foot ulcer Current Visit: Yes Status: Acute Code(s): E11.621 - TYPE 2 DIABETES MELLITUS WITH FOOT ULCER; L97.509 - NON-PRESSURE CHRONIC ULCER OTH PRT UNSP FOOT W UNSP SEVERITY SNOMED Code(s): 750339214 (2) Non-pressure chronic ulcer of other part of right foot with fat layer exposed Current Visit: Yes Status: Acute Code(s): L97.512 - NON-PRS CHRONIC ULCER OTH PRT RIGHT FOOT W FAT LAYER EXPOSED SNOMED Code(s): 09346333074839743
[2022-03-14 11:16] LABS: Glucose,Whole Blood 195 mg/dL (70-110)
--- NOTE | 2022-03-14 12:58 | US ---
Ultrasound-guided right chest tube insertion for complicated pleural effusion, empyema DATE OF EXAM: 03/14/2022 CLINICAL HISTORY: Right pleural effusion The procedure was discussed with the patient. The risks, complications, benefits, and alternatives we re discussed and any questions were answered. Informed consent was obtained. The patient was placed supine on the ultrasound table and prepped and draped in the usual sterile fas hion. All elements of maximal barrier and sterile technique were utilized. Under ultrasound guidance, access into the pleural space was obtained, via a 21-gauge needle and direct ultrasound guidance. There was placemen t of a 0.018 guidewire. Conversion to an 0.035 system and placement of a 8 [place] drainage catheter. Small samples obtained and sent to pathology for analysis. The patient was stable throughout the proc edure and remained stable upon discharge from Department of Radiology. IMPRESSION: 1. Successful ultrasound-guided right chest tube insertion.
--- NOTE | 2022-03-14 13:06 | XR ---
EXAMINATION TYPE: XR chest 1V portable DATE OF EXAM: 03/14/2022 COMPARISON: 03/12/2022 HISTORY: Postoperative pigtail chest tube placement TECHNIQUE: Single frontal view of the chest is obtained. FINDINGS: There is interval reduction in size of the right pleural effusion. Catheter not seen in de tail which likely is technical. Postoperative change involving the mediastinum or right lower lobe co nsolidation. Findings are improved compared to the prior exam. Underlying chronic interstitial lung d isease is noted and there is a small left pleural effusion. Cardiomegaly. IMPRESSION: 1. No pneumothorax. Interval significant reduction in amount of right-sided pleural effusion and cons olidation.
--- NOTE | 2022-03-14 13:54 | P.PN ---
Subjective Progress Note Date: 03/14/22 Principal diagnosis: Right-sided loculated pleural effusion 72-year-old male, seen in the emergency room, room #27. This is a patient who was seen in the emergency department initially on March 10. He came into the emergency room with complaints of shortness of breath, cough, and chest pain. The patient does have a history of end-stage renal disease, typically on Thursday, , and Thursday hemodialysis. He also has history of diabetes, hypertension, CAD, and previous bypass grafting. Over the last 10-14 days, the patient admits to increasing shortness of breath, and cough. He also has worsening orthopnea. The patient had a chest x-ray which revealed a pleural effusion, which was noted to be bilaterally, worse on the right side. It also appears to be loculated. The patient is typically not on home oxygen, but his saturations initially in the ER, were in the high 80s. He was placed on 2 L. He is not on any IV fluids. White count 9.6, hemoglobin 10.2, hematocrit 30.9, and platelet count 263,000. Sodium 135, potassium I.0, chloride 96, CO2 29, BUN 27, and creatinine 5.79. N-terminal proBNP was 72,500. Chest x-ray showed bilateral pleural effusion, right greater than left. The right-sided effusion is certainly loculated. The computed tomography scan showed bilateral pleural effusions, larger on the right side. There was no evidence of pulmonary embolism. There was calcified pleural plaque noted. The patient is seen today 03/12/2022 in follow-up on the selective care unit. He is currently sitting up in a chair at the bedside. Awake and alert in no acute distress. Maintaining good O2 saturations in the 90s on room air. No worsening shortness of breath, cough or congestion. No IV fluids. He did receive hemodialysis yesterday with 2.4 L removed. Chest x-ray from today is pending. White count 7.1. Hemoglobin 9.6. Platelets 238. Sodium 131. Potassium 4.6. BUN is 24. Creatinine 5.11. Glucose 201. He remains on oral diuretics. The patient is seen today 03/13/2022 in follow-up on the selective care unit. Currently resting comfortably in bed. Awake and alert in no acute distress. He is maintaining O2 saturations in the 90s on room air. No IV fluids currently. Chest x-ray continues to show right-sided loculated pleural effusion. Interventional radiologist for thoracentesis once his Plavix is held for 5 days. Otherwise the patient is doing well. No complaints. Echocardiogram reveals preserved left ventricular systolic function with ejection fraction of 50-55%. Blood glucose 147. Troponin negative 1. He remains on oral diuretics. Heparin for DVT prophylaxis. He should be receiving hemodialysis today. I'm evaluating this patient today 03/14/2022 in follow-up on a general medical floor. Patient is currently sitting up in bed, on room air, in no acute distress. At this time, patient was awaiting thoracentesis by IR. Apparently, later this afternoon, interventional radiology seen the patient for the thoracentesis, and decided to inserted a right pigtail catheter due to the effusion being quite loculated. Post insertion chest x-ray showed no pneumothorax with a significant reduction in the right-sided pleural effusion and consolidation. Pleural fluid cultures and cytology were ordered. He remains afebrile. No new labs to review today. Patient continues to receive Lasix daily . This is a hemodialysis patient. Vital signs remain stable. Objective - Vital Signs Vital signs: Vital Signs Temp 98.1 F 03/14/22 13:04 Pulse 72 03/14/22 13:17 Resp 16 03/14/22 13:04 BP 134/63 03/14/22 13:17 Pulse Ox 99 03/14/22 13:17 FiO2 21 03/12/22 20:59 Intake & Output 03/13/22 03/14/22 03/14/22 18:59 06:59 18:59 Intake Total 20 590 Output Total 100 602 Balance -80 590 -602 Intake: IV 20 Invasive Line 1 20 Oral 590 Output: Chest Tube Drainage 600 Thora-Vent 600 Urine 100 Stool 2 Other: Voiding Method Urinal Urinal - Exam GENERAL EXAM: Alert, very pleasant 72-year-old male, on room air, resting in bed, comfortable in no apparent distress. HEAD: Normocephalic. EYES: Normal reaction of pupils, equal size. NOSE: Clear with pink turbinates. THROAT: No erythema or exudates. NECK: No masses, no JVD. CHEST: No chest wall deformity. LUNGS: Equal air entry with crackles in the bilateral bases right greater than left. CVS: S1 and S2 normal with no audible murmur, regular rhythm. ABDOMEN: No hepatosplenomegaly, normal bowel sounds, no guarding or rigidity. SPINE: No scoliosis or deformity SKIN: No rashes CENTRAL NERVOUS SYSTEM: No focal deficits, tone is normal in all 4 extremities. EXTREMITIES: There is no peripheral edema. No clubbing, no cyanosis. Peripheral pulses are intact. - Labs CBC & Chem 7: 03/12/22 07:59 03/13/22 16:54 Labs: Abnormal Lab Results - Last 24 Hours (Table) 03/13/22 03/13/22 03/13/22 Range/Units 16:33 16:54 20:17 Sodium 134 L (137-145) mmol/L Chloride 95 L (98-107) mmol/L Carbon Dioxide 33 H (22-30) mmol/L Creatinine 4.16 H (0.66-1.25) mg/dL Glucose 282 H (74-99) mg/dL POC Glucose (mg/dL) 284 H 197 H (70-110) mg/dL Calcium 8.3 L (8.4-10.2) mg/dL 03/14/22 03/14/22 Range/Units 07:13 11:14 Sodium (137-145) mmol/L Chloride (98-107) mmol/L Carbon Dioxide (22-30) mmol/L Creatinine (0.66-1.25) mg/dL Glucose (74-99) mg/dL POC Glucose (mg/dL) 156 H 195 H (70-110) mg/dL Calcium (8.4-10.2) mg/dL Assessment and Plan Assessment: Acute hypoxic respiratory failure, likely related to bilateral right greater than left effusions. The right-sided effusion appears to be loculated. Interventional radiology did insert a right pigtail catheter today. Pleural fluid cultures and cytology were ordered. Post insertion chest x-ray reveals no pneumothorax and a reduction in the right-sided pleural effusion. Acute fluid overload, secondary to end-stage renal disease. End-stage renal disease, currently on 3 times a week hemodialysis. Thursday schedule History of CAD with previous bypass grafting. History of diabetes mellitus. History of hypertension. Prior history of tobacco use. History of hyperlipidemia. Plan: The patient was seen and evaluated Chest x-ray, medications and labs reviewed Currently off Plavix Interventional radiology inserted a right sided pigtail catheter this afternoon. Pleural fluid cultures and cytology were ordered Hemodialysis per nephrology We'll continue to follow I have personally seen and examined the patient, performed the documentation and the assessment and plan as written. Number of minutes spent on the visit: 10. Time with Patient: Less than 30
[2022-03-14 17:08] LABS: Glucose,Whole Blood 213 mg/dL (70-110)
--- NOTE | 2022-03-14 18:19 | P.PN ---
Subjective Patient is seen for follow-up for end-stage renal disease. He is maintained on a Thursday schedule. Patient was admitted with shortness of breath and there is some consideration for volume overload as well as pneumonia. Awaiting thoracentesis for loculated R pleural effusion on Thursday03/17/22. Plavix is on hold. No complaints. 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 End-stage renal disease on hemodialysis on a Thursday schedule 2. Volume overload 3. Possible pneumonia, right pleural effusion, loculated.Awaiting thoracentesis on Thursday03/17/22 4. CK D mineral bone disorder Plan: Hemodialysis in am.
[2022-03-14 20:09] LABS: Glucose,Whole Blood 213 mg/dL (70-110)
[2022-03-14] MEDS: ESCITALOPRAM 20 MG TAB PO SCH (21:41)
[2022-03-14] MEDS: ATORVASTATIN 40 MG TAB PO SCH (21:41)
[2022-03-14] MEDS: hydrALAZINE HCL 25 MG TAB PO SCH (21:41)
[2022-03-14] MEDS: traMADol 50 MG TAB PO PRN (21:41)
[2022-03-15 07:06] LABS: Glucose,Whole Blood 157 mg/dL (70-110)
[2022-03-15] MEDS: ASPIRIN 81 MG PO SCH (08:29)
[2022-03-15] MEDS: INSULIN ASPART (NovoLOG) 100 UNIT/ML VIAL SQ SCH ×4 (08:29→21:33)
[2022-03-15] MEDS: CALCIUM ACETATE 667 MG TAB PO SCH ×3 (08:29→18:15)
[2022-03-15] MEDS: HEPARIN SODIUM,PORCINE/PF 5,000 UNIT/0.5 ML SYRINGE SQ SCH ×3 (08:29→23:40)
[2022-03-15] MEDS: PANTOPRAZOLE 40 MG TABLET PO SCH ×2 (08:30→18:15)
[2022-03-15] MEDS: amLODIPine 10 MG TAB PO SCH (08:30)
[2022-03-15] MEDS: carvediloL 3.125 MG TAB PO SCH ×2 (08:30→18:15)
[2022-03-15] MEDS: FUROSEMIDE 40 MG TAB PO SCH (08:30)
[2022-03-15] MEDS: traMADol 50 MG TAB PO PRN (08:30)
[2022-03-15] MEDS: hydrALAZINE HCL 25 MG TAB PO SCH ×3 (08:30→21:32)
[2022-03-15] MEDS: FOLIC ACID-VIT B COMPLEX-VIT C 1 CAP PO SCH (08:31)
[2022-03-15 09:21] LABS: Basophils # (A) 0.07 X 10*3/uL (0.00-0.10); Basophils % (A) 0.9 %; Eosinophils # (A) 0.21 X 10*3/uL (0.04-0.35); Eosinophils % (A) 2.6 %; HCT 31.9 % (39.6-50.0); Immature Grans, Automated 0.3 %; Lymphocytes # (A) 1.61 X 10*3/uL (0.90-5.00); Lymphocytes % (A) 20.2 %; MCH 30.4 pg (27.0-32.0); MCHC 31.3 g/dL (32.0-37.0); Mean Platelet Volume 10.7 fL (9.5-12.2); Monocytes # (A) 0.71 X 10*3/uL (0.20-1.00); Monocytes % (A) 8.9 %; NRBC Per 100 WBC 0 /100 WBCS (0.0-0.0); Neutrophils # (A) 5.35 X 10*3/uL (1.80-7.70); Neutrophils % (A) 67.1 %; Platelet Count 295 X 10*3/uL (140-440); RBC 3.29 X 10*6/uL (4.40-5.60); WBC 7.97 X 10*3/uL (4.50-10.00)
[2022-03-15 09:30] LABS: African American GFR (CKD) 8.6 (60.0-200.0); Albumin 3.5 g/dL (3.8-4.9); Albumin/Globulin Ratio 1.13 (1.60-3.17); Anion Gap 13.5 mmol/L (10.00-18.00); BUN/Creat Ratio 5.9 Ratio (12.00-20.00); Blood Urea Nitrogen 40.1 mg/dL (9.0-27.0); Calcium 9.3 mg/dL (8.7-10.3); Carbon Dioxide 26.5 mmol/L (20.0-27.5); Globulin 3.1 g/dL (1.6-3.3); Non-African American GFR(CKD) 7.4 (60.0-200.0); Potassium 4.7 mmol/L (3.5-5.5); Total Bilirubin 0.4 mg/dL (0.30-1.20); Total Protein 6.6 g/dL (6.2-8.2)
[2022-03-15 11:14] LABS: Glucose,Whole Blood 178 mg/dL (70-110)
--- NOTE | 2022-03-15 11:34 | P.PN ---
Subjective Patient is seen for follow-up for end-stage renal disease. He is maintained on a Thursday schedule. Patient was admitted with shortness of breath and there is some consideration for volume overload as well as pneumonia. Status post right chest tube placement. No complaints. Seen on hemodialysis. Tolerating treatment well. Objective - Vital Signs Vital signs: Vital Signs Temp 97.7 F 03/15/22 07:05 Pulse 81 03/15/22 07:05 Resp 17 03/15/22 07:05 BP 145/56 03/15/22 07:05 Pulse Ox 97 03/15/22 08:09 FiO2 21 03/12/22 20:59 Intake & Output 03/14/22 03/15/22 03/15/22 18:59 06:59 18:59 Intake Total 540 Output Total 1252 50 2 Balance -1252 490 -2 Intake: Oral 540 Output: Chest Tube Drainage 1250 50 Thora-Vent 1250 50 Stool 2 2 Other: Voiding Method Urinal Urinal Urinal - Exam Awake, comfortable, no acute distress Examination lower extremities shows no significant edema ACCOUNT CONSULTANT exam grossly intact - Labs CBC & Chem 7: 03/15/22 05:07 03/15/22 05:03 Labs: Abnormal Lab Results - Last 24 Hours (Table) 03/14/22 03/14/22 03/15/22 Range/Units 17:06 20:07 05:03 RBC (4.40-5.60) X 10*6/uL Hgb (13.0-17.0) g/dL Hct (39.6-50.0) % MCHC (32.0-37.0) g/dL RDW (11.5-14.5) % Chloride 95 L (96-109) mmol/L BUN 40.1 H (9.0-27.0) mg/dL Creatinine 6.8 H (0.6-1.5) mg/dL Est GFR (CKD-EPI)AfAm 8.6 L (60.0-200.0) Est GFR (CKD-EPI)NonAf 7.4 L (60.0-200.0) BUN/Creatinine Ratio 5.90 L (12.00-20.00) Ratio Glucose 146 H (70-110) mg/dL POC Glucose (mg/dL) 213 H 213 H (70-110) mg/dL AST 12 L (14-35) U/L ALT 8 L (10-49) U/L Albumin 3.5 L (3.8-4.9) g/dL Albumin/Globulin Ratio 1.13 L (1.60-3.17) g/dL 03/15/22 03/15/22 03/15/22 Range/Units 05:07 07:05 11:13 RBC 3.29 L (4.40-5.60) X 10*6/uL Hgb 10.0 L (13.0-17.0) g/dL Hct 31.9 L (39.6-50.0) % MCHC 31.3 L (32.0-37.0) g/dL RDW 15.0 H (11.5-14.5) % Chloride (96-109) mmol/L BUN (9.0-27.0) mg/dL Creatinine (0.6-1.5) mg/dL Est GFR (CKD-EPI)AfAm (60.0-200.0) Est GFR (CKD-EPI)NonAf (60.0-200.0) BUN/Creatinine Ratio (12.00-20.00) Ratio Glucose (70-110) mg/dL POC Glucose (mg/dL) 157 H 178 H (70-110) mg/dL AST (14-35) U/L ALT (10-49) U/L Albumin (3.8-4.9) g/dL Albumin/Globulin Ratio (1.60-3.17) g/dL Assessment and Plan Assessment: 1. End-stage renal disease on hemodialysis on a Thursday schedule 2. Volume overload 3. Possible pneumonia, right pleural effusion, loculated. Status post right chest tube placement by interventional radiology. 4. CK D mineral bone disorder Plan: Hemodialysis today with goal UF 1-2 L as tolerated.
--- NOTE | 2022-03-15 12:24 | P.PN ---
Subjective Progress Note Date: 03/15/22 Principal diagnosis: Shortness of breath. 72-year-old male, seen in the emergency room, room #27. This is a patient who was seen in the emergency department initially on March 10. He came into the emergency room with complaints of shortness of breath, cough, and chest pain. The patient does have a history of end-stage renal disease, typically on Thursday, , and Thursday hemodialysis. He also has history of diabetes, hypertension, CAD, and previous bypass grafting. Over the last 10-14 days, the patient admits to increasing shortness of breath, and cough. He also has worsening orthopnea. The patient had a chest x-ray which revealed a pleural effusion, which was noted to be bilaterally, worse on the right side. It also appears to be loculated. The patient is typically not on home oxygen, but his saturations initially in the ER, were in the high 80s. He was placed on 2 L. He is not on any IV fluids. White count 9.6, hemoglobin 10.2, hematocrit 30.9, and platelet count 263,000. Sodium 135, potassium I.0, chloride 96, CO2 29, BUN 27, and creatinine 5.79. N-terminal proBNP was 72,500. Chest x-ray showed bilateral pleural effusion, right greater than left. The right-sided effusion is certainly loculated. The computed tomography scan showed bilateral pleural effusions, larger on the right side. There was no evidence of pulmonary embolism. There was calcified pleural plaque noted. The patient is seen today 03/12/2022 in follow-up on the selective care unit. He is currently sitting up in a chair at the bedside. Awake and alert in no acute distress. Maintaining good O2 saturations in the 90s on room air. No worsening shortness of breath, cough or congestion. No IV fluids. He did receive hemodialysis yesterday with 2.4 L removed. Chest x-ray from today is pending. White count 7.1. Hemoglobin 9.6. Platelets 238. Sodium 131. Potassium 4.6. BUN is 24. Creatinine 5.11. Glucose 201. He remains on oral diuretics. The patient is seen today 03/13/2022 in follow-up on the selective care unit. Currently resting comfortably in bed. Awake and alert in no acute distress. He is maintaining O2 saturations in the 90s on room air. No IV fluids currently. Chest x-ray continues to show right-sided loculated pleural effusion. Interventional radiologist for thoracentesis once his Plavix is held for 5 days. Otherwise the patient is doing well. No complaints. Echocardiogram reveals preserved left ventricular systolic function with ejection fraction of 50-55%. Blood glucose 147. Troponin negative 1. He remains on oral diuretics. Heparin for DVT prophylaxis. He should be receiving hemodialysis today. I'm evaluating this patient today 03/14/2022 in follow-up on a general medical floor. Patient is currently sitting up in bed, on room air, in no acute distress. At this time, patient was awaiting thoracentesis by IR. Apparently, later this afternoon, interventional radiology seen the patient for the th oracentesis, and decided to inserted a right pigtail catheter due to the effusion being quite loculated. Post insertion chest x-ray showed no pneumothorax with a significant reduction in the right-sided pleural effusion and consolidation. Pleural fluid cultures and cytology were ordered. He remains afebrile. No new labs to review today. Patient continues to receive Lasix daily. This is a hemodialysis patient. Vital signs remain stable. Progress note dated 03/15/2022. The patient is seen today in room 526. A pigtail catheter placed on the right side, on March 14. The patient had 600 mL out initially. He seems relatively comfortable. He sitting at the bedside. He is on room air. No IV fluids. The fluid from the right pleural space appears to be bloody. Awaiting chemistry on the fluid. White count 7.97, hemoglobin 10, hematocrit 32, and platelet count normal. Sodium 135, Potassium 4.7, chlorides 95, CO2 27, BUN 40, creatinine 6.8. Right pleural fluid analysis is currently pending. No chest x-ray today. Objective - Vital Signs Vital signs: Vital Signs Temp 97.7 F 03/15/22 07:05 Pulse 81 03/15/22 07:05 Resp 17 03/15/22 07:05 BP 145/56 03/15/22 07:05 Pulse Ox 97 03/15/22 08:09 FiO2 21 03/12/22 20:59 Intake & Output 03/14/22 03/15/22 03/15/22 18:59 06:59 18:59 Intake Total 540 Output Total 1252 50 2 Balance -1252 490 -2 Intake: Oral 540 Output: Chest Tube Drainage 1250 50 Thora-Vent 1250 50 Stool 2 2 Other: Voiding Method Urinal Urinal Urinal - Exam No acute distress, oriented 3. No acute distress. Currently on room air. HEENT examination is grossly unremarkable. Neck supple. Full range of motion. No adenopathy thyromegaly or neck vein distention. Cardiovascular examination reveals regular rhythm rate. S1-S2 normal. No S3 or S4. No discernible murmur noted. Heart rate 81 bpm. Lungs reveal clear breath sounds. Breath sounds are equal bilaterally. No adventitious lung sounds including wheezes rhonchi or crackles. A right-sided p igtail catheter is noted. Saturations on room are 97%. Abdomen soft bowel sounds are heard. No masses or tenderness. Extremities are intact. No cyanosis clubbing or edema. Skin is without rash or lesion. Neurologic examination is brief but nonfocal. - Labs CBC & Chem 7: 03/15/22 05:07 03/15/22 05:03 Labs: Abnormal Lab Results - Last 24 Hours (Table) 03/14/22 03/14/22 03/15/22 Range/Units 17:06 20:07 05:03 RBC (4.40-5.60) X 10*6/uL Hgb (13.0-17.0) g/dL Hct (39.6-50.0) % MCHC (32.0-37.0) g/dL RDW (11.5-14.5) % Chloride 95 L (96-109) mmol/L BUN 40.1 H (9.0-27.0) mg/dL Creatinine 6.8 H (0.6-1.5) mg/dL Est GFR (CKD-EPI)AfAm 8.6 L (60.0-200.0) Est GFR (CKD-EPI)NonAf 7.4 L (60.0-200.0) BUN/Creatinine Ratio 5.90 L (12.00-20.00) Ratio Glucose 146 H (70-110) mg/dL POC Glucose (mg/dL) 213 H 213 H (70-110) mg/dL AST 12 L (14-35) U/L ALT 8 L (10-49) U/L Albumin 3.5 L (3.8-4.9) g/dL Albumin/Globulin Ratio 1.13 L (1.60-3.17) g/dL 03/15/22 03/15/22 03/15/22 Range/Units 05:07 07:05 11:13 RBC 3.29 L (4.40-5.60) X 10*6/uL Hgb 10.0 L (13.0-17.0) g/dL Hct 31.9 L (39.6-50.0) % MCHC 31.3 L (32.0-37.0) g/dL RDW 15.0 H (11.5-14.5) % Chloride (96-109) mmol/L BUN (9.0-27.0) mg/dL Creatinine (0.6-1.5) mg/dL Est GFR (CKD-EPI)AfAm (60.0-200.0) Est GFR (CKD-EPI)NonAf (60.0-200.0) BUN/Creatinine Ratio (12.00-20.00) Ratio Glucose (70-110) mg/dL POC Glucose (mg/dL) 157 H 178 H (70-110) mg/dL AST (14-35) U/L ALT (10-49) U/L Albumin (3.8-4.9) g/dL Albumin/Globulin Ratio (1.60-3.17) g/dL Assessment and Plan Assessment: Acute shortness of breath with hypoxemia, likely related to bilateral right grea ter than left effusions. The right-sided effusion appears to be loculated. Status post pigtail catheter insertion, 03/14/2022. Acute fluid overload, secondary to end-stage renal disease. End-stage renal disease, currently on 3 times a week hemodialysis. History of CAD with previous bypass grafting. History of diabetes mellitus. History of hypertension. Prior history of tobacco use. History of hyperlipidemia. Plan: Plan dated 03/11/2022. The patient is evaluated, and reviewed, and examined. The patient has bilateral effusions, right greater than left. The right-sided effusion appears to be loculated. The patient will have a thoracentesis, performed by interventional radiology, under ultrasound guidance, and the fact that the fluid is loculated. Additional recommendations and suggestions are forthcoming. We will continue to follow and make recommendations along the way. Labs, x-rays, and medications are all reviewed. The patient is due to have hemodialysis today. Plan dated 03/15/2022. The patient had a pigtail catheter placed by interventional radiology yesterday. The fluid appears to be bloody. He does not appear to be purulent. We will await the formal lab results from the fluid. Additional recommendations and suggestions are forthcoming. The patient is not having any distress whatsoever. The patient's on room air. No IV fluids. Labs, x-rays, and medications are all reviewed. Time with Patient: Less than 30
[2022-03-15 17:22] LABS: Appearance,BF Bloody
[2022-03-15 17:36] LABS: Glucose,Whole Blood 186 mg/dL (70-110)
[2022-03-15 18:49] LABS: Glucose, BF Source Pleural Fluid; Glucose, Body Fluid 96 mg/dL; LDH, Body Fluid Source Pleural Fluid; T. Protein, Body Fluid Source Pleural Fluid; Total Protein, Body Fluid 3520 mg/dL
[2022-03-15 20:56] LABS: Glucose,Whole Blood 197 mg/dL (70-110)
[2022-03-15] MEDS: ESCITALOPRAM 20 MG TAB PO SCH (21:32)
[2022-03-15] MEDS: ATORVASTATIN 40 MG TAB PO SCH (21:32)
--- NOTE | 2022-03-15 23:23 | PN ---
PROGRESS NOTE DATE OF SERVICE: 03/14/2022 A white male who is status post thoracentesis. He has a PEG tube placed in his back, drainage tube, all the cultures are pending. Fungal cultures, acid-fast bacilli, body cultures, etc. Hemoglobin is 10, creatinine is 6.3, BUN is 40 he is getting hemodialysis with Dr. Gomez. Continue to wait for cultures on the paracentesis and thoracentesis. Pain control. Prognosis guarded. Psych is good mood and affect. Cardiovascular, S1, S2. Lungs clear. His breathing is better, status post thoracentesis for right pleural effusion. Wait for cultures. Wait for continue current treatment, otherwise, dialysis, etc. Pulmonary, Cardiology have involved as well as Renal physician also for dialysis. Prognosis guarded. MMODL / IJN: [id number] /
[2022-03-16 08:05] LABS: Glucose,Whole Blood 175 mg/dL (70-110)
[2022-03-16] MEDS: INSULIN ASPART (NovoLOG) 100 UNIT/ML VIAL SQ SCH ×4 (08:49→21:17)
[2022-03-16] MEDS: FOLIC ACID-VIT B COMPLEX-VIT C 1 CAP PO SCH (08:49)
[2022-03-16] MEDS: ASPIRIN 81 MG PO SCH (08:50)
[2022-03-16] MEDS: hydrALAZINE HCL 25 MG TAB PO SCH ×3 (08:50→21:16)
[2022-03-16] MEDS: HEPARIN SODIUM,PORCINE/PF 5,000 UNIT/0.5 ML SYRINGE SQ SCH ×3 (08:50→23:32)
[2022-03-16] MEDS: carvediloL 3.125 MG TAB PO SCH ×2 (08:50→17:27)
[2022-03-16] MEDS: PANTOPRAZOLE 40 MG TABLET PO SCH ×2 (08:50→17:27)
[2022-03-16] MEDS: amLODIPine 10 MG TAB PO SCH (08:50)
[2022-03-16] MEDS: FUROSEMIDE 40 MG TAB PO SCH (08:50)
[2022-03-16] MEDS: CALCIUM ACETATE 667 MG TAB PO SCH ×3 (08:50→17:27)
[2022-03-16 09:13] LABS: Basophils # (A) 0.07 X 10*3/uL (0.00-0.10); Eosinophils # (A) 0.25 X 10*3/uL (0.04-0.35); Eosinophils % (A) 3.6 %; HGB 9.7 g/dL (13.0-17.0); Immature Grans, Automated 0.1 %; Lymphocytes # (A) 1.37 X 10*3/uL (0.90-5.00); Lymphocytes % (A) 19.7 %; MCH 30.7 pg (27.0-32.0); MCHC 31.3 g/dL (32.0-37.0); MCV 98.1 fL (80.0-97.0); Mean Platelet Volume 10.6 fL (9.5-12.2); Monocytes # (A) 0.74 X 10*3/uL (0.20-1.00); Monocytes % (A) 10.7 %; NRBC Per 100 WBC 0 /100 WBCS (0.0-0.0); Neutrophils % (A) 64.9 %; Platelet Count 273 X 10*3/uL (140-440); RBC 3.16 X 10*6/uL (4.40-5.60); RDW 14.8 % (11.5-14.5); WBC 6.94 X 10*3/uL (4.50-10.00)
[2022-03-16 09:55] LABS: African American GFR (CKD) 12.5 (60.0-200.0); Albumin 3.3 g/dL (3.8-4.9); Albumin/Globulin Ratio 1.18 (1.60-3.17); Anion Gap 8.6 mmol/L (10.00-18.00); BUN/Creat Ratio 5.26 Ratio (12.00-20.00); Blood Urea Nitrogen 26.3 mg/dL (9.0-27.0); Calcium 8.8 mg/dL (8.7-10.3); Carbon Dioxide 30.4 mmol/L (20.0-27.5); Globulin 2.8 g/dL (1.6-3.3); Non-African American GFR(CKD) 10.8 (60.0-200.0); Potassium 4.5 mmol/L (3.5-5.5); Total Bilirubin 0.3 mg/dL (0.30-1.20); Total Protein 6.1 g/dL (6.2-8.2)
[2022-03-16] MEDS ORDERED: ALTEPLASE 10 MG in SODIUM CHLORIDE 0.9% 50 ML IRRIGATION ONE (10:01)
[2022-03-16] MEDS ORDERED: DORNASE ALFA 5 MG in SODIUM CHLORIDE 0.9% 50 ML IRRIGATION ONE (10:01)
--- NOTE | 2022-03-16 10:47 | P.PN ---
Subjective Progress Note Date: 03/16/22 Principal diagnosis: Bilateral pleural effusions, acute onset of shortness of breath, acute diastolic heart failure. History of end-stage renal disease currently on hemodialysis, coronary artery disease status post 6 vessel CABG as well as PCI, hypertension, hyperlipidemia, diabetes mellitus, previous tobacco dependence POD #2 right-sided pigtail catheter placement by interventional radiology The patient was seen and examined this morning laying in bed in no acute distress. Remains on room air with oxygen saturation in the mid 90s. Remains afebrile. Preliminary Gram stain from pleural fluid demonstrates no organisms. Patient continues to receive dialysis per nephrology. Right-sided pigtail catheter in place, total 800 mL fluid present in his atrium. No other new concerns. Objective - Vital Signs Vital signs: Vital Signs Temp 97.8 F 03/16/22 08:03 Pulse 70 03/16/22 08:03 Resp 18 03/16/22 08:03 BP 158/76 03/16/22 08:03 Pulse Ox 97 03/16/22 08:03 FiO2 21 03/12/22 20:59 Intake & Output 03/15/22 03/16/22 03/16/22 18:59 06:59 18:59 Intake Total 500 590 Output Total 2102 0 Balance -1602 590 Intake: Oral 590 Hemodialysis 500 Output: Chest Tube Drainage 100 0 Thora-Vent 100 0 Stool 2 Hemodialysis 2000 Other: Voiding Method Urinal Toilet - Exam CONSTITUTIONAL: Appears comfortable, cooperative, no acute distress RESPIRATORY: Lungs sounds diminished bilaterally. Respirations even, nonlabored. Currently on room air with oxygen saturation 97% CARDIOVASCULAR: S1, S2 present. Regular rate and rhythm. Palpable peripheral pulses bilaterally. GASTROINTESTINAL: Abdomen soft, nontender, nondistended. Active bowel sounds present 4 quadrants. Tolerating diet. GENITOURINARY: Continues to void INTEGUMENTARY: Skin is warm and dry NEUROLOGIC: Cranial nerves II through XII intact MUSKULOSKELETAL: Able to move all extremities, strength equal bilaterally, gait normal PSYCHIATRIC: Oriented to person place and time, appropriate affect, intact judgment and insight INVASIVE LINES AND TUBES: Right pleural chest tubes present and connected to wall suction, no air leaks present, no drainage overnight, 800 mL dark drainage since placement of pigtail catheter - Labs CBC & Chem 7: 03/16/22 04:57 03/16/22 04:57 Labs: Abnormal Lab Results - Last 24 Hours (Table) 03/15/22 03/15/22 03/15/22 Range/Units 11:13 17:35 20:54 RBC (4.40-5.60) X 10*6/uL Hgb (13.0-17.0) g/dL Hct (39.6-50.0) % MCV (80.0-97.0) fL MCHC (32.0-37.0) g/dL RDW (11.5-14.5) % Sodium (135-145) mmol/L Chloride (96-109) mmol/L Carbon Dioxide (20.0-27.5) mmol/L Anion Gap (10.00-18.00) mmol/L Creatinine (0.6-1.5) mg/dL Est GFR (CKD-EPI)AfAm (60.0-200.0) Est GFR (CKD-EPI)NonAf (60.0-200.0) BUN/Creatinine Ratio (12.00-20.00) Ratio Glucose (70-110) mg/dL POC Glucose (mg/dL) 178 H 186 H 197 H (70-110) mg/dL AST (14-35) U/L ALT (10-49) U/L Total Protein (6.2-8.2) g/dL Albumin (3.8-4.9) g/dL Albumin/Globulin Ratio (1.60-3.17) g/dL 03/16/22 03/16/22 03/16/22 Range/Units 04:57 04:57 08:02 RBC 3.16 L (4.40-5.60) X 10*6/uL Hgb 9.7 L (13.0-17.0) g/dL Hct 31.0 L (39.6-50.0) % MCV 98.1 H (80.0-97.0) fL MCHC 31.3 L (32.0-37.0) g/dL RDW 14.8 H (11.5-14.5) % Sodium 133 L (135-145) mmol/L Chloride 94 L (96-109) mmol/L Carbon Dioxide 30.4 H (20.0-27.5) mmol/L Anion Gap 8.60 L (10.00-18.00) mmol/L Creatinine 5.0 H (0.6-1.5) mg/dL Est GFR (CKD-EPI)AfAm 12.5 L (60.0-200.0) Est GFR (CKD-EPI)NonAf 10.8 L (60.0-200.0) BUN/Creatinine Ratio 5.26 L (12.00-20.00) Ratio Glucose 167 H (70-110) mg/dL POC Glucose (mg/dL) 175 H (70-110) mg/dL AST 12 L (14-35) U/L ALT 7 L (10-49) U/L Total Protein 6.1 L (6.2-8.2) g/dL Albumin 3.3 L (3.8-4.9) g/dL Albumin/Globulin Ratio 1.18 L (1.60-3.17) g/dL Microbiology - Last 24 Hours (Table) 03/14/22 12:35 Gram Stain - Preliminary Pleural Fluid Body Fluid Culture - Preliminary 03/14/22 12:35 Fungal Culture - Preliminary Pleural Fluid 03/14/22 12:35 Acid Fast Bacilli Culture - Preliminary Pleural Fluid - Imaging and Cardiology Chest x-ray: report reviewed, image reviewed Assessment and Plan Assessment: 1. Bilateral pleural effusions, right greater than left, status post right- sided pigtail catheter placement by interventional radiology 2. Acute onset of shortness of breath 3. Acute diastolic heart failure 4. End-stage renal disease currently on hemodialysis schedule 5. History of coronary artery disease status post 6 vessel CABG, status post PCI 6. Hypertension 7. Hyperlipidemia 8. Diabetes mellitus 9. Previous tobacco dependence Plan: 1. Will instill first dose of lytics today, will instill up to 5 daily dosages depending on drainage, monitor drainage 2. Incentive spirometry ordered, please encourage use 3. Increase activity as tolerated 4. Will monitor daily x-rays 5. Medical management of other comorbidities per primary care service
--- NOTE | 2022-03-16 11:06 | P.PN ---
Subjective Progress Note Date: 03/16/22 Principal diagnosis: Shortness of breath. 72-year-old male, seen in the emergency room, room #27. This is a patient who was seen in the emergency department initially on March 10. He came into the emergency room with complaints of shortness of breath, cough, and chest pain. The patient does have a history of end-stage renal disease, typically on Thursday, , and Thursday hemodialysis. He also has history of diabetes, hypertension, CAD, and previous bypass grafting. Over the last 10-14 days, the patient admits to increasing shortness of breath, and cough. He also has worsening orthopnea. The patient had a chest x-ray which revealed a pleural effusion, which was noted to be bilaterally, worse on the right side. It also appears to be loculated. The patient is typically not on home oxygen, but his saturations initially in the ER, were in the high 80s. He was placed on 2 L. He is not on any IV fluids. White count 9.6, hemoglobin 10.2, hematocrit 30.9, and platelet count 263,000. Sodium 135, potassium I.0, chloride 96, CO2 29, BUN 27, and creatinine 5.79. N-terminal proBNP was 72,500. Chest x-ray showed bilateral pleural effusion, right greater than left. The right-sided effusion is certainly loculated. The computed tomography scan showed bilateral pleural effusions, larger on the right side. There was no evidence of pulmonary embolism. There was calcified pleural plaque noted. The patient is seen today 03/12/2022 in follow-up on the selective care unit. He is currently sitting up in a chair at the bedside. Awake and alert in no acute distress. Maintaining good O2 saturations in the 90s on room air. No worsening shortness of breath, cough or congestion. No IV fluids. He did receive hemodialysis yesterday with 2.4 L removed. Chest x-ray from today is pending. White count 7.1. Hemoglobin 9.6. Platelets 238. Sodium 131. Potassium 4.6. BUN is 24. Creatinine 5.11. Glucose 201. He remains on oral diuretics. The patient is seen today 03/13/2022 in follow-up on the selective care unit. Currently resting comfortably in bed. Awake and alert in no acute distress. He is maintaining O2 saturations in the 90s on room air. No IV fluids currently. Chest x-ray continues to show right-sided loculated pleural effusion. Interventional radiologist for thoracentesis once his Plavix is held for 5 days. Otherwise the patient is doing well. No complaints. Echocardiogram reveals preserved left ventricular systolic function with ejection fraction of 50-55%. Blood glucose 147. Troponin negative 1. He remains on oral diuretics. Heparin for DVT prophylaxis. He should be receiving hemodialysis today. I'm evaluating this patient today 03/14/2022 in follow-up on a general medical floor. Patient is currently sitting up in bed, on room air, in no acute distress. At this time, patient was awaiting thoracentesis by IR. Apparently, later this afternoon, interventional radiology seen the patient for the th oracentesis, and decided to inserted a right pigtail catheter due to the effusion being quite loculated. Post insertion chest x-ray showed no pneumothorax with a significant reduction in the right-sided pleural effusion and consolidation. Pleural fluid cultures and cytology were ordered. He remains afebrile. No new labs to review today. Patient continues to receive Lasix daily. This is a hemodialysis patient. Vital signs remain stable. Progress note dated 03/15/2022. The patient is seen today in room 526. A pigtail catheter placed on the right side, on March 14. The patient had 600 mL out initially. He seems relatively comfortable. He sitting at the bedside. He is on room air. No IV fluids. The fluid from the right pleural space appears to be bloody. Awaiting chemistry on the fluid. White count 7.97, hemoglobin 10, hematocrit 32, and platelet count normal. Sodium 135, Potassium 4.7, chlorides 95, CO2 27, BUN 40, creatinine 6.8. Right pleural fluid analysis is currently pending. No chest x-ray today. Progress note dated 03/16/2022. The patient is seen in room 526. He is on room air. No IV fluids. The pleural effusion is an exudate based on the LDH and protein. The patient will have TPA instilled today. We have alerted cardiothoracic surgery. The patient is resting comfortably. No acute distress. Labs today include a white count of 6.94, hemoglobin 9.7, hematocrit 31, and platelet count 273,000. Sodium 133, potassium 4.5, chlorides 94, CO2 30, BUN 26, creatinine 5. No chest x-ray was done, but one is ordered. Microbiology on the pleural fluid is thus far negative. Objective - Vital Signs Vital signs: Vital Signs Temp 97.8 F 03/16/22 08:03 Pulse 70 03/16/22 08:03 Resp 18 03/16/22 08:03 BP 158/76 03/16/22 08:03 Pulse Ox 97 03/16/22 08:03 FiO2 21 03/12/22 20:59 Intake & Output 03/15/22 03/16/22 03/16/22 18:59 06:59 18:59 Intake Total 500 590 Output Total 2102 0 Balance -1602 590 Intake: Oral 590 Hemodialysis 500 Output: Chest Tube Drainage 100 0 Thora-Vent 100 0 Stool 2 Hemodialysis 2000 Other: Voiding Method Urinal Toilet - Exam No acute distress, oriented 3. No acute distress. Currently on room air. HEENT examination is grossly unremarkable. Neck supple. Full range of motion. No adenopathy thyromegaly or neck vein distention. Cardiovascular examination reveals regular rhythm rate. S1-S2 normal. No S3 or S4. No discernible murmur noted. Heart rate 70 bpm. Lungs reveal clear breath sounds. Breath sounds are equal bilaterally. No adventitious lung sounds including wheezes rhonchi or crackles. A right-sided pigtail catheter is noted. Saturations on room are 97%. Abdomen soft bowel sounds are heard. No masses or tenderness. Extremities are intact. No cyanosis clubbing or edema. Skin is without rash or lesion. Neurologic examination is brief but nonfocal. - Labs CBC & Chem 7: 03/16/22 04:57 03/16/22 04:57 Labs: Abnormal Lab Results - Last 24 Hours (Table) 03/15/22 03/15/22 03/15/22 Range/Units 11:13 17:35 20:54 RBC (4.40-5.60) X 10*6/uL Hgb (13.0-17.0) g/dL Hct (39.6-50.0) % MCV (80.0-97.0) fL MCHC (32.0-37.0) g/dL RDW (11.5-14.5) % Sodium (135-145) mmol/L Chloride (96-109) mmol/L Carbon Dioxide (20.0-27.5) mmol/L Anion Gap (10.00-18.00) mmol/L Creatinine (0.6-1.5) mg/dL Est GFR (CKD-EPI)AfAm (60.0-200.0) Est GFR (CKD-EPI)NonAf (60.0-200.0) BUN/Creatinine Ratio (12.00-20.00) Ratio Glucose (70-110) mg/dL POC Glucose (mg/dL) 178 H 186 H 197 H (70-110) mg/dL AST (14-35) U/L ALT (10-49) U/L Total Protein (6.2-8.2) g/dL Albumin (3.8-4.9) g/dL Albumin/Globulin Ratio (1.60-3.17) g/dL 03/16/22 03/16/22 03/16/22 Range/Units 04:57 04:57 08:02 RBC 3.16 L (4.40-5.60) X 10*6/uL Hgb 9.7 L (13.0-17.0) g/dL Hct 31.0 L (39.6-50.0) % MCV 98.1 H (80.0-97.0) fL MCHC 31.3 L (32.0-37.0) g/dL RDW 14.8 H (11.5-14.5) % Sodium 133 L (135-145) mmol/L Chloride 94 L (96-109) mmol/L Carbon Dioxide 30.4 H (20.0-27.5) mmol/L Anion Gap 8.60 L (10.00-18.00) mmol/L Creatinine 5.0 H (0.6-1.5) mg/dL Est GFR (CKD-EPI)AfAm 12.5 L (60.0-200.0) Est GFR (CKD-EPI)NonAf 10.8 L (60.0-200.0) BUN/Creatinine Ratio 5.26 L (12.00-20.00) Ratio Glucose 167 H (70-110) mg/dL POC Glucose (mg/dL) 175 H (70-110) mg/dL AST 12 L (14-35) U/L ALT 7 L (10-49) U/L Total Protein 6.1 L (6.2-8.2) g/dL Albumin 3.3 L (3.8-4.9) g/dL Albumin/Globulin Ratio 1.18 L (1.60-3.17) g/dL Microbiology - Last 24 Hours (Table) 03/14/22 12:35 Gram Stain - Preliminary Pleural Fluid Body Fluid Culture - Preliminary 03/14/22 12:35 Fungal Culture - Preliminary Pleural Fluid 03/14/22 12:35 Acid Fast Bacilli Culture - Preliminary Pleural Fluid Assessment and Plan Assessment: Acute shortness of breath with hypoxemia, likely related to bilateral right greater than left effusions. The right-sided effusion appears to be loculated. Status post pigtail catheter insertion, 03/14/2022. Acute fluid overload, secondary to end-stage renal disease. End-stage renal disease, currently on 3 times a week hemodialysis. History of CAD with previous bypass grafting. History of diabetes mellitus. History of hypertension. Prior history of tobacco use. History of hyperlipidemia. Plan: Plan dated 03/11/2022. The patient is evaluated, and reviewed, and examined. The patient has bilateral effusions, right greater than left. The right-sided effusion appears to be loculated. The patient will have a thoracentesis, performed by interventional radiology, under ultrasound guidance, and the fact that the fluid is loculated. Additional recommendations and suggestions are forthcoming. We will continue to follow and make recommendations along the way. Labs, x-rays, and medications are all reviewed. The patient is due to have hemodialysis today. Plan dated 03/15/2022. The patient had a pigtail catheter placed by interventional radiology yesterday. The fluid appears to be bloody. He does not appear to be purulent. We will await the formal lab results from the fluid. Additional recommendations and suggestions are forthcoming. The patient is not having any distress whatsoever. The patient's on room air. No IV fluids. Labs, x-rays, and medications are all reviewed. Plan dated 03/16/2022. The patient will have TPA instilled into his pigtail catheter today by cardiothoracic surgery. The fluid is an exudate, based on the LDH and protein. Microbiology is currently pending or negative. The patient is clinically stable. He is on room air. He's not receiving any IV fluids. Labs, x-rays, and medications are all reviewed. Prognosis is guarded. We will continue to follow the patient and make recommendations along the right. Time with Patient: Less than 30
[2022-03-16 12:36] LABS: Glucose,Whole Blood 209 mg/dL (70-110)
[2022-03-16 17:59] LABS: Glucose,Whole Blood 172 mg/dL (70-110)
--- NOTE | 2022-03-16 18:12 | P.PN ---
Subjective Progress Note Date: 03/16/22 Principal diagnosis: Acute shortness of breath with hypoxemia, likely related to bilateral right greater than left effusions. The right-sided effusion appears to be loculated. Status post pigtail catheter insertion, 03/14/2022. Acute fluid overload, secondary to end-stage renal disease. End-stage renal disease, currently on 3 times a week hemodialysis. 72-year-old male, seen in the emergency room, room #27. This is a patient who was seen in the emergency department initially on March 10. He came into the emergency room with complaints of shortness of breath, cough, and chest pain. The patient does have a history of end-stage renal disease, typically on Thursday, , and Thursday hemodialysis. He also has history of diabetes, hypertension, CAD, and previous bypass grafting. Over the last 10-14 days, the patient admits to increasing shortness of breath, and cough. He also has worsening orthopnea. The patient had a chest x-ray which revealed a pleural effusion, which was noted to be bilaterally, worse on the right side. It also appears to be loculated. The patient is typically not on home oxygen, but his saturations initially in the ER, were in the high 80s. He was placed on 2 L. He is not on any IV fluids. White count 9.6, hemoglobin 10.2, hematocrit 30.9, and platelet count 263,000. Sodium 135, potassium I.0, chloride 96, CO2 29, BUN 27, and creatinine 5.79. N-terminal proBNP was 72,500. Chest x-ray showed b ilateral pleural effusion, right greater than left. The right-sided effusion is certainly loculated. The computed tomography scan showed bilateral pleural effusions, larger on the right side. There was no evidence of pulmonary embolism. There was calcified pleural plaque noted. 03/16/2022 Patient is seen and evaluated sitting up in bedside chair. He is on room air. No IV fluids. The pleural effusion is an exudate based on the LDH and protein. The patient will have TPA instilled today; cardiothoracic surgery on board. The patient is resting comfortably. No acute distress. Labs today include a white count of 6.94, hemoglobin 9.7, hematocrit 31, and platelet count 273,000. Sodium 133, potassium 4.5, chlorides 94, CO2 30, BUN 26, creatinine 5. No chest x-ray was done, but one is ordered. Microbiology on the pleural fluid is thus far negative. The fluid is an exudate, based on the LDH and protein. Microbiology is currently pending or negative. The patient is clinically stable. He is on room air. He's not receiving any IV fluids. Labs, x-rays, and medications are all reviewed. Prognosis is guarded. We will continue to follow the patient and make recommendations along the right. Objective - Vital Signs Vital signs: Vital Signs Temp 97.5 F L 03/16/22 12:36 Pulse 55 L 03/16/22 12:36 Resp 16 03/16/22 12:36 BP 123/46 03/16/22 12:36 Pulse Ox 95 03/16/22 12:36 FiO2 21 03/12/22 20:59 Intake & Output 03/15/22 03/16/22 03/16/22 18:59 06:59 18:59 Intake Total 500 590 Output Total 2102 0 Balance -1602 590 Intake: Oral 590 Hemodialysis 500 Output: Chest Tube Drainage 100 0 Thora-Vent 100 0 Stool 2 Hemodialysis 2000 Other: Voiding Method Urinal Toilet - Exam PHYSICAL EXAMINATION: GENERAL: The patient is alert and oriented x3, not in any acute distress. Well developed, well nourished. HEENT: Pupils are round and equally reacting to light. EOMI. No scleral icterus. No conjunctival pallor. Normocephalic, atraumatic. No pharyngeal erythema. No thyromegaly. CARDIOVASCULAR: S1 and S2 present. No murmurs, rubs, or gallops. PULMONARY: Chest is clear to auscultation, no wheezing or crackles. ABDOMEN: Soft, nontender, nondistended, normoactive bowel sounds. No palpable organomegaly. MUSCULOSKELETAL: No joint swelling or deformity. EXTREMITIES: No cyanosis, clubbing, or pedal edema. NEUROLOGICAL: Gross neurological examination did not reveal any focal deficits. SKIN: No rashes. - Labs CBC & Chem 7: 03/16/22 04:57 03/16/22 04:57 Labs: Abnormal Lab Results - Last 24 Hours (Table) 03/15/22 03/15/22 03/16/22 Range/Units 17:35 20:54 04:57 RBC 3.16 L (4.40-5.60) X 10*6/uL Hgb 9.7 L (13.0-17.0) g/dL Hct 31.0 L (39.6-50.0) % MCV 98.1 H (80.0-97.0) fL MCHC 31.3 L (32.0-37.0) g/dL RDW 14.8 H (11.5-14.5) % Sodium (135-145) mmol/L Chloride (96-109) mmol/L Carbon Dioxide (20.0-27.5) mmol/L Anion Gap (10.00-18.00) mmol/L Creatinine (0.6-1.5) mg/dL Est GFR (CKD-EPI)AfAm (60.0-200.0) Est GFR (CKD-EPI)NonAf (60.0-200.0) BUN/Creatinine Ratio (12.00-20.00) Ratio Glucose (70-110) mg/dL POC Glucose (mg/dL) 186 H 197 H (70-110) mg/dL AST (14-35) U/L ALT (10-49) U/L Total Protein (6.2-8.2) g/dL Albumin (3.8-4.9) g/dL Albumin/Globulin Ratio (1.60-3.17) g/dL 03/16/22 03/16/22 03/16/22 Range/Units 04:57 08:02 12:35 RBC (4.40-5.60) X 10*6/uL Hgb (13.0-17.0) g/dL Hct (39.6-50.0) % MCV (80.0-97.0) fL MCHC (32.0-37.0) g/dL RDW (11.5-14.5) % Sodium 133 L (135-145) mmol/L Chloride 94 L (96-109) mmol/L Carbon Dioxide 30.4 H (20.0-27.5) mmol/L Anion Gap 8.60 L (10.00-18.00) mmol/L Creatinine 5.0 H (0.6-1.5) mg/dL Est GFR (CKD-EPI)AfAm 12.5 L (60.0-200.0) Est GFR (CKD-EPI)NonAf 10.8 L (60.0-200.0) BUN/Creatinine Ratio 5.26 L (12.00-20.00) Ratio Glucose 167 H (70-110) mg/dL POC Glucose (mg/dL) 175 H 209 H (70-110) mg/dL AST 12 L (14-35) U/L ALT 7 L (10-49) U/L Total Protein 6.1 L (6.2-8.2) g/dL Albumin 3.3 L (3.8-4.9) g/dL Albumin/Globulin Ratio 1.18 L (1.60-3.17) g/dL Microbiology - Last 24 Hours (Table) 03/14/22 12:35 Gram Stain - Preliminary Pleural Fluid Body Fluid Culture - Preliminary 03/14/22 12:35 Fungal Culture - Preliminary Pleural Fluid 03/14/22 12:35 Acid Fast Bacilli Culture - Preliminary Pleural Fluid Assessment and Plan Assessment: Acute shortness of breath with hypoxemia, likely related to bilateral right gre ater than left effusions. The right-sided effusion appears to be loculated. Status post pigtail catheter insertion, 03/14/2022. Acute fluid overload, secondary to end-stage renal disease. End-stage renal disease, currently on 3 times a week hemodialysis. History of CAD with previous bypass grafting. History of diabetes mellitus. History of hypertension. Prior history of tobacco use. History of hyperlipidemia. patient will have TPA instilled into his pigtail catheter today by cardiothoracic surgery. The fluid is an exudate, based on the LDH and protein. Microbiology is currently pending or negative. The patient is clinically stable. He is on room air. He's not receiving any IV fluids. Labs, x-rays, and medications are all reviewed. Prognosis is guarded. We will continue to follow the patient and make recommendations along the right.
[2022-03-16 20:10] LABS: Glucose,Whole Blood 228 mg/dL (70-110)
[2022-03-16] MEDS: ATORVASTATIN 40 MG TAB PO SCH (21:16)
[2022-03-16] MEDS: ESCITALOPRAM 20 MG TAB PO SCH (21:17)
[2022-03-17 06:52] LABS: Glucose,Whole Blood 166 mg/dL (70-110)
[2022-03-17] MEDS: ASPIRIN 81 MG PO SCH (08:03)
[2022-03-17] MEDS: CALCIUM ACETATE 667 MG TAB PO SCH ×3 (08:03→18:20)
[2022-03-17] MEDS: FUROSEMIDE 40 MG TAB PO SCH (08:03)
[2022-03-17] MEDS: HEPARIN SODIUM,PORCINE/PF 5,000 UNIT/0.5 ML SYRINGE SQ SCH ×3 (08:03→23:18)
[2022-03-17] MEDS: amLODIPine 10 MG TAB PO SCH (08:03)
[2022-03-17] MEDS: carvediloL 3.125 MG TAB PO SCH ×2 (08:03→18:20)
[2022-03-17] MEDS: hydrALAZINE HCL 25 MG TAB PO SCH ×3 (08:03→21:17)
[2022-03-17] MEDS: INSULIN ASPART (NovoLOG) 100 UNIT/ML VIAL SQ SCH ×4 (08:03→21:17)
[2022-03-17] MEDS: PANTOPRAZOLE 40 MG TABLET PO SCH ×2 (08:03→18:20)
[2022-03-17] MEDS: FOLIC ACID-VIT B COMPLEX-VIT C 1 CAP PO SCH (08:07)
--- NOTE | 2022-03-17 08:19 | XR ---
EXAMINATION TYPE: XR chest 1V portable DATE OF EXAM: 03/17/2022 CLINICAL HISTORY: Difficulty breathing progress study. Pleural effusion with pigtail catheter remova l. TECHNIQUE: Single AP portable upright view of the chest is obtained. COMPARISON: Chest x-ray from 3 days earlier and older studies. FINDINGS: Persistent lateral right midlung masslike consolidation. Patchy right lower lung increased opacity. Left lung is clear. Overlying sternal wires and mediastinal clips redemonstrated. Mild card iomegaly. Osseous structures are demineralized. No pneumothorax is evident. IMPRESSION: Chronic changes with lateral right midlung dense opacity redemonstrated could reflect res idual pleural thickening and/or loculated effusion. Bibasilar scarring and/or atelectasis suspected. Underlying acute infiltrates cannot be excluded.
--- NOTE | 2022-03-17 08:55 | P.PN ---
Subjective Progress Note Date: 03/17/22 Principal diagnosis: Bilateral pleural effusions, acute onset of shortness of breath, acute diastolic heart failure. History of end-stage renal disease currently on hemodialysis, coronary artery disease status post 6 vessel CABG as well as PCI, hypertension, hyperlipidemia, diabetes mellitus, previous tobacco dependence POD #3 right-sided pigtail catheter placement by interventional radiology The patient was seen and examined this morning sitting up in bed in no acute distress eating breakfast. Remains on room air with oxygen saturation in the mid 90s, able to achieve 2500 mL on incentive spirometry. Remains afebrile. Preliminary Gram stain from pleural fluid demonstrates no organisms. Patient continues to receive dialysis per nephrology. Right-sided pigtail catheter accidentally pulled out yesterday afternoon by patient after first lytic dose instilled. Objective - Vital Signs Vital signs: Vital Signs Temp 98.2 F 03/17/22 06:53 Pulse 70 03/17/22 06:53 Resp 16 03/17/22 06:53 BP 161/61 03/17/22 06:53 Pulse Ox 93 L 03/17/22 07:36 FiO2 21 03/12/22 20:59 Intake & Output 03/16/22 03/17/22 03/17/22 18:59 06:59 18:59 Intake Total 590 Balance 590 Intake: Oral 590 Other: Voiding Method Toilet # Voids 1 - Exam CONSTITUTIONAL: Appears comfortable, cooperative, no acute distress RESPIRATORY: Lungs sounds diminished bilaterally. Respirations even, nonlabored. Currently on room air with oxygen saturation 93%. Able to pull 2500 mL on his incentive spirometry CARDIOVASCULAR: S1, S2 present. Regular rate and rhythm. Palpable peripheral pulses bilaterally. GASTROINTESTINAL: Abdomen soft, nontender, nondistended. Active bowel sounds present 4 quadrants. Tolerating diet. GENITOURINARY: Continues to void INTEGUMENTARY: Skin is warm and dry NEUROLOGIC: Cranial nerves II through XII intact MUSKULOSKELETAL: Able to move all extremities, strength equal bilaterally, gait normal PSYCHIATRIC: Oriented to person place and time, appropriate affect, intact judg ment and insight - Allied health notes Allied health notes reviewed: nursing - Labs CBC & Chem 7: 03/16/22 04:57 03/16/22 04:57 Labs: Abnormal Lab Results - Last 24 Hours (Table) 03/16/22 03/16/22 03/16/22 Range/Units 04:57 04:57 08:02 RBC 3.16 L (4.40-5.60) X 10*6/uL Hgb 9.7 L (13.0-17.0) g/dL Hct 31.0 L (39.6-50.0) % MCV 98.1 H (80.0-97.0) fL MCHC 31.3 L (32.0-37.0) g/dL RDW 14.8 H (11.5-14.5) % Sodium 133 L (135-145) mmol/L Chloride 94 L (96-109) mmol/L Carbon Dioxide 30.4 H (20.0-27.5) mmol/L Anion Gap 8.60 L (10.00-18.00) mmol/L Creatinine 5.0 H (0.6-1.5) mg/dL Est GFR (CKD-EPI)AfAm 12.5 L (60.0-200.0) Est GFR (CKD-EPI)NonAf 10.8 L (60.0-200.0) BUN/Creatinine Ratio 5.26 L (12.00-20.00) Ratio Glucose 167 H (70-110) mg/dL POC Glucose (mg/dL) 175 H (70-110) mg/dL AST 12 L (14-35) U/L ALT 7 L (10-49) U/L Total Protein 6.1 L (6.2-8.2) g/dL Albumin 3.3 L (3.8-4.9) g/dL Albumin/Globulin Ratio 1.18 L (1.60-3.17) g/dL 03/16/22 03/16/22 03/16/22 Range/Units 12:35 17:58 20:08 RBC (4.40-5.60) X 10*6/uL Hgb (13.0-17.0) g/dL Hct (39.6-50.0) % MCV (80.0-97.0) fL MCHC (32.0-37.0) g/dL RDW (11.5-14.5) % Sodium (135-145) mmol/L Chloride (96-109) mmol/L Carbon Dioxide (20.0-27.5) mmol/L Anion Gap (10.00-18.00) mmol/L Creatinine (0.6-1.5) mg/dL Est GFR (CKD-EPI)AfAm (60.0-200.0) Est GFR (CKD-EPI)NonAf (60.0-200.0) BUN/Creatinine Ratio (12.00-20.00) Ratio Glucose (70-110) mg/dL POC Glucose (mg/dL) 209 H 172 H 228 H (70-110) mg/dL AST (14-35) U/L ALT (10-49) U/L Total Protein (6.2-8.2) g/dL Albumin (3.8-4.9) g/dL Albumin/Globulin Ratio (1.60-3.17) g/dL 03/17/22 Range/Units 06:50 RBC (4.40-5.60) X 10*6/uL Hgb (13.0-17.0) g/dL Hct (39.6-50.0) % MCV (80.0-97.0) fL MCHC (32.0-37.0) g/dL RDW (11.5-14.5) % Sodium (135-145) mmol/L Chloride (96-109) mmol/L Carbon Dioxide (20.0-27.5) mmol/L Anion Gap (10.00-18.00) mmol/L Creatinine (0.6-1.5) mg/dL Est GFR (CKD-EPI)AfAm (60.0-200.0) Est GFR (CKD-EPI)NonAf (60.0-200.0) BUN/Creatinine Ratio (12.00-20.00) Ratio Glucose (70-110) mg/dL POC Glucose (mg/dL) 166 H (70-110) mg/dL AST (14-35) U/L ALT (10-49) U/L Total Protein (6.2-8.2) g/dL Albumin (3.8-4.9) g/dL Albumin/Globulin Ratio (1.60-3.17) g/dL Microbiology - Last 24 Hours (Table) 03/14/22 12:35 Acid Fast Bacilli Smear - Final Pleural Fluid Acid Fast Bacilli Culture - Preliminary 03/14/22 12:35 Gram Stain - Preliminary Pleural Fluid Body Fluid Culture - Preliminary - Imaging and Cardiology Chest x-ray: report reviewed, image reviewed Assessment and Plan Assessment: 1. Bilateral pleural effusions, right greater than left, status post right- sided pigtail catheter placement by interventional radiology 2. Acute onset of shortness of breath 3. Acute diastolic heart failure 4. End-stage renal disease currently on hemodialysis schedule 5. History of coronary artery disease status post 6 vessel CABG, status post PCI 6. Hypertension 7. Hyperlipidemia 8. Diabetes mellitus 9. Previous tobacco dependence Plan: 1. Pigtail catheter removed. Discussed with Dr. Pichardo and Dr. Wilkinson, if pigtail catheter replaced will continue lytic instillation 2. Encourage incentive spirometry use 3. Increase activity as tolerated 4. Will monitor daily x-rays 5. Medical management of other comorbidities per primary care service
--- NOTE | 2022-03-17 10:12 | P.PN ---
Subjective Progress Note Date: 03/17/22 72-year-old male, seen in the emergency room, room #27. This is a patient who was seen in the emergency department initially on March 10. He came into the emergency room with complaints of shortness of breath, cough, and chest pain. The patient does have a history of end-stage renal disease, typically on Thursday, , and Thursday hemodialysis. He also has history of diabetes, hypertension, CAD, and previous bypass grafting. Over the last 10-14 days, the patient admits to increasing shortness of breath, and cough. He also has worsening orthopnea. The patient had a chest x-ray which revealed a pleural effusion, which was noted to be bilaterally, worse on the right side. It also appears to be loculated. The patient is typically not on home oxygen, but his saturations initially in the ER, were in the high 80s. He was placed on 2 L. He is not on any IV fluids. White count 9.6, hemoglobin 10.2, hematocrit 30.9, and platelet count 263,000. Sodium 135, potassium I.0, chloride 96, CO2 29, BUN 27, and creatinine 5.79. N-terminal proBNP was 72,500. Chest x-ray showed bilateral pleural effusion, right greater than left. The right-sided effusion is certainly loculated. The computed tomography scan showed bilateral pleural effusions, larger on the right side. There was no evidence of pulmonary embolism. There was calcified pleural plaque noted. The patient is seen today 03/12/2022 in follow-up on the selective care unit. He is currently sitting up in a chair at the bedside. Awake and alert in no acute distress. Maintaining good O2 saturations in the 90s on room air. No worsening shortness of breath, cough or congestion. No IV fluids. He did receive hemodialysis yesterday with 2.4 L removed. Chest x-ray from today is pending. White count 7.1. Hemoglobin 9.6. Platelets 238. Sodium 131. Potassium 4.6. BUN is 24. Creatinine 5.11. Glucose 201. He remains on oral diuretics. The patient is seen today 03/13/2022 in follow-up on the selective care unit. Currently resting comfortably in bed. Awake and alert in no acute distress. He is maintaining O2 saturations in the 90s on room air. No IV fluids currently. Chest x-ray continues to show right-sided loculated pleural effusion. Interventional radiologist for thoracentesis once his Plavix is held for 5 days. Otherwise the patient is doing well. No complaints. Echocardiogram reveals pr eserved left ventricular systolic function with ejection fraction of 50-55%. Blood glucose 147. Troponin negative 1. He remains on oral diuretics. Heparin for DVT prophylaxis. He should be receiving hemodialysis today. I'm evaluating this patient today 03/14/2022 in follow-up on a general medical floor. Patient is currently sitting up in bed, on room air, in no acute distress. At this time, patient was awaiting thoracentesis by IR. Apparently, later this afternoon, interventional radiology seen the patient for the thoracentesis, and decided to inserted a right pigtail catheter due to the effusion being quite loculated. Post insertion chest x-ray showed no pneumothorax with a significant reduction in the right-sided pleural effusion and consolidation. Pleural fluid cultures and cytology were ordered. He remains afebrile. No new labs to review today. Patient continues to receive Lasix daily. This is a hemodialysis patient. Vital signs remain stable. Progress note dated 03/15/2022. The patient is seen today in room 526. A pigtail catheter placed on the right side, on March 14. The patient had 600 mL out initially. He seems relatively comfortable. He sitting at the bedside. He is on room air. No IV fluids. The fluid from the right pleural space appears to be bloody. Awaiting chemistry on the fluid. White count 7.97, hemoglobin 10, hematocrit 32, and platelet count normal. Sodium 135, Potassium 4.7, chlorides 95, CO2 27, BUN 40, creatinine 6.8. Right pleural fluid analysis is currently pending. No chest x-ray today. Progress note dated 03/16/2022. The patient is seen in room 526. He is on room air. No IV fluids. The pleural effusion is an exudate based on the LDH and protein. The patient will have TPA instilled today. We have alerted cardiothoracic surgery. The patient is resting comfortably. No acute distress. Labs today include a white count of 6.94, hemoglobin 9.7, hematocrit 31, and platelet count 273,000. Sodium 133, potassium 4.5, chlorides 94, CO2 30, BUN 26, creatinine 5. No chest x-ray was done, but one is ordered. Microbiology on the pleural fluid is thus far negative. On today's evaluation of 03/14/2022, the patient is being seen for a follow-up. He currently is in the hospital for a episode of shortness of breath and hypoxemic respiratory failure. The patient also had a loculated right-sided pleural effusion the patient had a pigtail catheter inserted on 03/14/2022. He has other comorbidities including end-stage renal disease on hemodialysis, coronary artery disease with previous bypass surgery, diabetes and hypertension and he is a chronic smoker and has hyperlipidemia. The fluid from the pigtail catheter was an exudate with an LDH of 467 and protein of 3.5 g. The cultures have been negative thus far. Note that the patient also had thrombolytics infused thrombolytics infused with adequate drainage. Noted the pigtail catheter was inserted by interventional radiology. He shortness of breath is improved. The pigtail catheter was removed and a chest x-ray from today. Upon review of CAT scan of the chest, there is pleural surface calcification and plaquing could be related to asbestosis and the patient has been exposed to asbestos in the past. Pleural fluid cytology is either not send orders pending Objective - Vital Signs Vital signs: Vital Signs Temp 98.2 F 03/17/22 06:53 Pulse 70 03/17/22 06:53 Resp 16 03/17/22 06:53 BP 161/61 03/17/22 06:53 Pulse Ox 93 L 03/17/22 07:36 FiO2 21 03/12/22 20:59 Intake & Output 03/16/22 03/17/22 03/17/22 18:59 06:59 18:59 Intake Total 590 Balance 590 Intake: Oral 590 Other: Voiding Method Toilet # Voids 1 - Exam CONSTITUTIONAL: Appears comfortable, cooperative, no acute distress RESPIRATORY: Lungs sounds diminished bilaterally. Respirations even, nonlabored. Currently on room air with oxygen saturation 93%. Able to pull 2500 mL on his incentive spirometry CARDIOVASCULAR: S1, S2 present. Regular rate and rhythm. Palpable peripheral pulses bilaterally. GASTROINTESTINAL: Abdomen soft, nontender, nondistended. Active bowel sounds present 4 quadrants. Tolerating diet. GENITOURINARY: Continues to void INTEGUMENTARY: Skin is warm and dry NEUROLOGIC: Cranial nerves II through XII intact MUSKULOSKELETAL: Able to move all extremities, strength equal bilaterally, gait normal PSYCHIATRIC: Oriented to person place and time, appropriate affect, intact judgment and insight - Labs CBC & Chem 7: 03/16/22 04:57 03/16/22 04:57 Labs: Abnormal Lab Results - Last 24 Hours (Table) 03/16/22 03/16/22 03/16/22 Range/Units 12:35 17:58 20:08 POC Glucose (mg/dL) 209 H 172 H 228 H (70-110) mg/dL 03/17/22 Range/Units 06:50 POC Glucose (mg/dL) 166 H (70-110) mg/dL Microbiology - Last 24 Hours (Table) 03/14/22 12:35 Acid Fast Bacilli Smear - Final Pleural Fluid Acid Fast Bacilli Culture - Preliminary 03/14/22 12:35 Gram Stain - Preliminary Pleural Fluid Body Fluid Culture - Preliminary Assessment and Plan Plan: Acute shortness of breath with hypoxemia, likely related to bilateral right greater than left effusions. The right-sided effusion appears to be loculated. The patient underwent a pigtail catheter insertion and subsequent incisional thrombolytics into the right hemithorax. The catheter fell off today and the patient doesn't have a catheter this point in time. Nevertheless, he is quite comfortable on room air oxygen with a pulse ox of 90-94%. The repeat chest x- ray shows volume loss and probably some residual opacification and loculated effusion on the right. A CAT scan of the chest will be needed. Pleural fluid cytology still pending for now. Rule out malignancy. Rule out underlying asbestosis and mesothelioma Status post pigtail catheter insertion, 03/14/2022. The catheter came out on 03/17/2022 Pleural plaquing, rule out underlying asbestosis Acute fluid overload, secondary to end-stage renal disease. End-stage renal disease, currently on 3 times a week hemodialysis. History of CAD with previous bypass grafting. History of diabetes mellitus. History of hypertension. Prior history of tobacco use. History of hyperlipidemia. Plan: Check for any pleural fluid cytology Obtain a noncontrast CAT scan of the chest We'll decide if further intervention is needed based on the results of the CAT scan we'll continue to follow
--- NOTE | 2022-03-17 10:13 | P.PN ---
Subjective Patient is seen in follow-up for end-stage renal disease. He is maintained on hemodialysis on Thursday schedule. States his chest tube fell out. Denies chest pain or shortness of breath. On room air. Vital signs are stable. General: No acute distress. HEENT: Head exam is unremarkable. LUNGS: Breath sounds decreased. HEART: Rate and Rhythm are regular. ABDOMEN: Soft, no distention. EXTREMITITES: No edema. Objective - Vital Signs Vital signs: Vital Signs Temp 98.2 F 03/17/22 06:53 Pulse 70 03/17/22 06:53 Resp 16 03/17/22 06:53 BP 161/61 03/17/22 06:53 Pulse Ox 93 L 03/17/22 07:36 FiO2 21 03/12/22 20:59 Intake & Output 03/16/22 03/17/22 03/17/22 18:59 06:59 18:59 Intake Total 590 Balance 590 Intake: Oral 590 Other: Voiding Method Toilet # Voids 1 - Labs CBC & Chem 7: 03/16/22 04:57 03/16/22 04:57 Labs: Abnormal Lab Results - Last 24 Hours (Table) 03/16/22 03/16/22 03/16/22 Range/Units 12:35 17:58 20:08 POC Glucose (mg/dL) 209 H 172 H 228 H (70-110) mg/dL 03/17/22 Range/Units 06:50 POC Glucose (mg/dL) 166 H (70-110) mg/dL Microbiology - Last 24 Hours (Table) 03/14/22 12:35 Acid Fast Bacilli Smear - Final Pleural Fluid Acid Fast Bacilli Culture - Preliminary 03/14/22 12:35 Gram Stain - Preliminary Pleural Fluid Body Fluid Culture - Preliminary Assessment and Plan Plan: Assessment: 1. End-stage renal disease maintained on hemodialysis on Thursday schedule. 2. Bilateral pleural effusions. Currently does not have pigtail catheter. 3. Acute on chronic diastolic CHF and [id number] mitral regurgitation. 4. Chronic kidney disease mineral bone disease maintained on PhosLo. 5. Hypertension with chronic kidney disease. Stable. 6. Anemia of chronic kidney disease. Plan: Hemodialysis tomorrow. Check iron studies. Change Lasix to torsemide.
[2022-03-17 11:23] LABS: Glucose,Whole Blood 260 mg/dL (70-110)
--- NOTE | 2022-03-17 11:38 | CT ---
EXAMINATION TYPE: CT chest wo con CT DLP: 903 mGycm, Automated exposure control for dose reduction was used. DATE OF EXAM: 03/17/2022 11:26 AM COMPARISON: CT chest 03/10/2022, chest radiograph 03/17/2022. CLINICAL INDICATION:Male, 72 years old with history of right pleural effusion TECHNIQUE: Multiple axial images were obtained through the chest without IV contrast. Lack of IV or o ral contrast limits evaluation of solid and hollow organ viscera. FINDINGS: LUNGS/ PLEURA: Decreased size of right pleural effusion with moderate-sized hydropneumothorax. There is loculated appearance of the gas component. Decrease size of trace left pleural effusion. Similar p eripheral reticular subpleural opacities likely representing fibrotic changes. Redemonstration of krystina ateral subpleural calcifications right greater than left. AIRWAY: Patent and unremarkable.. HEART: Size within normal limits. No pericardial effusion. Coronary arterial calcifications. MEDIASTINUM: No gross evidence of adenopathy. VASCULATURE: No aortic aneurysm. Atherosclerotic described calcification of the aorta is branches. MUSCULOSKELETAL: No acute osseous abnormalities. Median sternotomy wires. Multilevel degenerative denny nges of the visualized spine. SOFT TISSUES/LYMPH NODES: Bilateral gynecomastia. Right lateral chest wall subcutaneous emphysema. LOWER NECK: No significant findings. UPPER ABDOMEN: Atrophy of both kidneys with nonobstructing bilateral renal calcifications. 1.3 cm aicha cification within the right renal pelvis. Right renal cyst. IMPRESSION: 1. Decreased size of right pleural effusion with moderate size right hydropneumothorax. Minimal right lateral chest wall subcutaneous emphysema with no chest tube identified. 2. Decreased size of trace left pleural effusion. 3. Bilateral pleural/subpleural calcifications with right greater than left. 4. Atrophy of both kidneys with nonobstructive bilateral renal calculi.
[2022-03-17] MEDS ORDERED: ALTEPLASE 10 MG in SODIUM CHLORIDE 0.9% 50 ML IRRIGATION ONE (15:53)
[2022-03-17] MEDS ORDERED: DORNASE ALFA 5 MG in SODIUM CHLORIDE 0.9% 50 ML IRRIGATION ONE (15:53)
--- NOTE | 2022-03-17 15:53 | US ---
Ultrasound guided chest tube insertion Date: 03/17/2022 History: Complex right pleural effusion. Existing catheter accidentally fell out this weekend. Comparison: 03/14/2022 The patient was brought to the US room after coagulation profile was checked and deemed appropriate. The risks and benefits of the procedure were explained to the patient, and the patient's questions we re answered. Informed consent was obtained. Limited ultrasound of the right chest demonstrates a multiloculated fluid collection in the right ple ural space with internal air. A critical pause was performed. Sterile field was prepared, and lidocaine was used for local anesthes ia. A tiny skin incision was made. The pleural fluid was accessed with a 21-gauge needle. A 0.018 wir e was looped in the pleural space. A transitional dilator was used to upsize to a 0.035 wire. Over th e wire, the tract was dilated with subsequent placement of an 8.5 Mongolian all-purpose drainage cathete r. The 25cm marker is at the skin entry site. The distal loop was formed and locked. The catheter was attached to a Pleur-evac and secured to the skin with a stay fix dressing. The patient tolerated the procedure well with no apparent complications. A postprocedural scan throug h the region of interest demonstrated no acute complications. Impression: Successful ultrasound-guided placement of a right chest tube.
[2022-03-17 17:02] LABS: Glucose,Whole Blood 152 mg/dL (70-110)
[2022-03-17 20:27] LABS: Glucose,Whole Blood 212 mg/dL (70-110)
[2022-03-17] MEDS: ESCITALOPRAM 20 MG TAB PO SCH (21:17)
[2022-03-17] MEDS: ATORVASTATIN 40 MG TAB PO SCH (21:17)
--- NOTE | 2022-03-18 02:09 | PN ---
PROGRESS NOTE SUBJECTIVE: Still has chest tube in place. Chest tube insertion. After CAT scan shows pneumothorax on the right side, status post thoracentesis, drainage of fluid. He remains stable. Chest tube was reinserted today. He has some more shortness of breath. He also has end-stage renal disease on dialysis, coronary artery disease, previous bypass, diabetes, hypertension, chronic smoker, pigtail catheter, LDH of 467, protein 3.5 g. Cultures have been negative so far. He had thrombolytics with thrombolytics with adequate drainage. CAT scan of the chest today showed pleural surface calcification and plaquing, possibly due to asbestosis. Cytology is pending. Labs were reviewed. OBJECTIVE: VITAL SIGNS: Reviewed. GENERAL: Sleeping comfortably in bed. VITAL SIGNS: Blood pressure 161/60, O2 93, FiO2 21, temp 98.2, pulse 70s, and respiratory rate 16. Acid-fast bacilli negative. acute shortness of breath, hypoxemia related to bilateral right greater than left effusions, loculated pigtail catheter, hypoxia respiratory failure, possible asbestosis, rule out mesothelioma pleural plaquing to fluid overload, end-stage renal disease, history of coronary artery disease, diabetes mellitus, hypertension, nicotine addiction, dyslipidemia, end-stage renal disease. Wait for pleural cytology. Remove chest tube as tolerated per chest surgeon and Pulmonary recommendation. PROGNOSIS: Guarded. MMODL / IJN: [id number] /
[2022-03-18 07:04] LABS: Glucose,Whole Blood 181 mg/dL (70-110)
[2022-03-18] MEDS: amLODIPine 10 MG TAB PO SCH (08:28)
[2022-03-18] MEDS: carvediloL 3.125 MG TAB PO SCH ×2 (08:28→17:13)
[2022-03-18] MEDS: ASPIRIN 81 MG PO SCH (08:29)
[2022-03-18] MEDS: HEPARIN SODIUM,PORCINE/PF 5,000 UNIT/0.5 ML SYRINGE SQ SCH ×2 (08:29→17:14)
[2022-03-18] MEDS: hydrALAZINE HCL 25 MG TAB PO SCH ×3 (08:29→21:42)
[2022-03-18] MEDS: CALCIUM ACETATE 667 MG TAB PO SCH ×3 (08:29→17:14)
[2022-03-18] MEDS: INSULIN ASPART (NovoLOG) 100 UNIT/ML VIAL SQ SCH ×4 (08:29→21:42)
[2022-03-18] MEDS: FOLIC ACID-VIT B COMPLEX-VIT C 1 CAP PO SCH (08:29)
[2022-03-18] MEDS: TORSEMIDE 20 MG TAB PO SCH (08:29)
[2022-03-18] MEDS: PANTOPRAZOLE 40 MG TABLET PO SCH ×2 (08:29→17:13)
[2022-03-18] MEDS ORDERED: ALTEPLASE 10 MG in SODIUM CHLORIDE 0.9% 50 ML IRRIGATION ONE (09:45)
[2022-03-18] MEDS ORDERED: DORNASE ALFA 5 MG in SODIUM CHLORIDE 0.9% 50 ML IRRIGATION ONE (09:45)
--- NOTE | 2022-03-18 10:00 | P.PN ---
Subjective Progress Note Date: 03/18/22 72-year-old male, seen in the emergency room, room #27. This is a patient who was seen in the emergency department initially on March 10. He came into the emergency room with complaints of shortness of breath, cough, and chest pain. The patient does have a history of end-stage renal disease, typically on Thursday, , and Thursday hemodialysis. He also has history of diabetes, hypertension, CAD, and previous bypass grafting. Over the last 10-14 days, the patient admits to increasing shortness of breath, and cough. He also has worsening orthopnea. The patient had a chest x-ray which revealed a pleural effusion, which was noted to be bilaterally, worse on the right side. It also appears to be loculated. The patient is typically not on home oxygen, but his saturations initially in the ER, were in the high 80s. He was placed on 2 L. He is not on any IV fluids. White count 9.6, hemoglobin 10.2, hematocrit 30.9, and platelet count 263,000. Sodium 135, potassium I.0, chloride 96, CO2 29, BUN 27, and creatinine 5.79. N-terminal proBNP was 72,500. Chest x-ray showed bilateral pleural effusion, right greater than left. The right-sided effusion is certainly loculated. The computed tomography scan showed bilateral pleural effusions, larger on the right side. There was no evidence of pulmonary embolism. There was calcified pleural plaque noted. The patient is seen today 03/12/2022 in follow-up on the selective care unit. He is currently sitting up in a chair at the bedside. Awake and alert in no acute distress. Maintaining good O2 saturations in the 90s on room air. No worsening shortness of breath, cough or congestion. No IV fluids. He did receive hemodialysis yesterday with 2.4 L removed. Chest x-ray from today is pending. White count 7.1. Hemoglobin 9.6. Platelets 238. Sodium 131. Potassium 4.6. BUN is 24. Creatinine 5.11. Glucose 201. He remains on oral diuretics. The patient is seen today 03/13/2022 in follow-up on the selective care unit. Currently resting comfortably in bed. Awake and alert in no acute distress. He is maintaining O2 saturations in the 90s on room air. No IV fluids currently. Chest x-ray continues to show right-sided loculated pleural effusion. Interventional radiologist for thoracentesis once his Plavix is held for 5 days. Otherwise the patient is doing well. No complaints. Echocardiogram reveals pr eserved left ventricular systolic function with ejection fraction of 50-55%. Blood glucose 147. Troponin negative 1. He remains on oral diuretics. Heparin for DVT prophylaxis. He should be receiving hemodialysis today. I'm evaluating this patient today 03/14/2022 in follow-up on a general medical floor. Patient is currently sitting up in bed, on room air, in no acute distress. At this time, patient was awaiting thoracentesis by IR. Apparently, later this afternoon, interventional radiology seen the patient for the thoracentesis, and decided to inserted a right pigtail catheter due to the effusion being quite loculated. Post insertion chest x-ray showed no pneumothorax with a significant reduction in the right-sided pleural effusion and consolidation. Pleural fluid cultures and cytology were ordered. He remains afebrile. No new labs to review today. Patient continues to receive Lasix daily. This is a hemodialysis patient. Vital signs remain stable. Progress note dated 03/15/2022. The patient is seen today in room 526. A pigtail catheter placed on the right side, on March 14. The patient had 600 mL out initially. He seems relatively comfortable. He sitting at the bedside. He is on room air. No IV fluids. The fluid from the right pleural space appears to be bloody. Awaiting chemistry on the fluid. White count 7.97, hemoglobin 10, hematocrit 32, and platelet count normal. Sodium 135, Potassium 4.7, chlorides 95, CO2 27, BUN 40, creatinine 6.8. Right pleural fluid analysis is currently pending. No chest x-ray today. Progress note dated 03/16/2022. The patient is seen in room 526. He is on room air. No IV fluids. The pleural effusion is an exudate based on the LDH and protein. The patient will have TPA instilled today. We have alerted cardiothoracic surgery. The patient is resting comfortably. No acute distress. Labs today include a white count of 6.94, hemoglobin 9.7, hematocrit 31, and platelet count 273,000. Sodium 133, potassium 4.5, chlorides 94, CO2 30, BUN 26, creatinine 5. No chest x-ray was done, but one is ordered. Microbiology on the pleural fluid is thus far negative. On today's evaluation of 03/17/2022, the patient is being seen for a follow-up. He currently is in the hospital for a episode of shortness of breath and hypoxemic respiratory failure. The patient also had a loculated right-sided pleural effusion the patient had a pigtail catheter inserted on 03/14/2022. He has other comorbidities including end-stage renal disease on hemodialysis, coronary artery disease with previous bypass surgery, diabetes and hypertension and he is a chronic smoker and has hyperlipidemia. The fluid from the pigtail catheter was an exudate with an LDH of 467 and protein of 3.5 g. The cultures have been negative thus far. Note that the patient also had thrombolytics infused thrombolytics infused with adequate drainage. Noted the pigtail catheter was inserted by interventional radiology. He shortness of breath is improved. The pigtail catheter was removed and a chest x-ray from today. Upon review of CAT scan of the chest, there is pleural surface calcification and plaquing could be related to asbestosis and the patient has been exposed to asbestos in the past. Pleural fluid cytology is either not send orders pending On 03/18/2022, the patient is being seen for a follow-up. As mentioned yesterd ay, the patient's pigtail catheter was accidentally removed and based on that, a CAT scan of the chest was done and showed decrease in the size of the right- sided pleural effusion and there was a moderate-sized right-sided hydropneumothorax. There was minimal amount of subcu in his emphysema and de creased left-sided pleural effusion. At the same time, there was bilateral pleural/subpleural calcification right more than left. Based on that, the patient was given another pigtail catheter. Following that, the patient was also given thrombolytics. This morning, the patient has approximately 700 mL of bloody output. As mentioned, the patient has a loculated hydropneumothorax on the right side on today's chest x-ray. The patient is also going to undergo hemodialysis. Patient is currently on oxygen and he is on room air oxygen. The patient is awaiting pleural fluid cytology was sent yesterday for further evaluation. There is a high concern for malignancy in this patient. As mention ed, the pleural surfaces Extensively calcified and it may include some pleural plaquing. Objective - Vital Signs Vital signs: Vital Signs Temp 97.8 F 03/18/22 07:05 Pulse 61 03/18/22 07:05 Resp 16 03/18/22 07:05 BP 138/62 03/18/22 07:05 Pulse Ox 97 03/18/22 07:05 FiO2 21 03/12/22 20:59 Intake & Output 03/17/22 03/18/22 03/18/22 18:59 06:59 18:59 Output Total 472 Balance -472 Output: Chest Tube Drainage 470 Thora-Vent 470 Stool 2 Other: Voiding Method Toilet # Voids 1 - Exam CONSTITUTIONAL: Appears comfortable, cooperative, no acute distress RESPIRATORY: Lungs sounds diminished bilaterally. Respirations even, nonlabored. Currently on room air with oxygen saturation 93%. Able to pull 2500 mL on his incentive spirometry CARDIOVASCULAR: S1, S2 present. Regular rate and rhythm. Palpable peripheral pulses bilaterally. GASTROINTESTINAL: Abdomen soft, nontender, nondistended. Active bowel sounds present 4 quadrants. Tolerating diet. GENITOURINARY: Continues to void INTEGUMENTARY: Skin is warm and dry NEUROLOGIC: Cranial nerves II through XII intact MUSKULOSKELETAL: Able to move all extremities, strength equal bilaterally, gait normal PSYCHIATRIC: Oriented to person place and time, appropriate affect, intact judgment and insight - Labs CBC & Chem 7: 03/16/22 04:57 03/16/22 04:57 Labs: Abnormal Lab Results - Last 24 Hours (Table) 03/17/22 03/17/22 03/17/22 Range/Units 10:15 11:22 17:01 POC Glucose (mg/dL) 260 H 152 H (70-110) mg/dL Iron 58 L (65-175) ug/dL Transferrin 137.0 L (204.0-354.0) mg/dL Ferritin 1337.0 H (22.0-322.0) ng/mL 03/17/22 03/18/22 Range/Units 20:26 07:02 POC Glucose (mg/dL) 212 H 181 H (70-110) mg/dL Iron (65-175) ug/dL Transferrin (204.0-354.0) mg/dL Ferritin (22.0-322.0) ng/mL Microbiology - Last 24 Hours (Table) 03/14/22 12:35 Gram Stain - Preliminary Pleural Fluid Body Fluid Culture - Preliminary Assessment and Plan Plan: Acute shortness of breath with hypoxemia, likely related to bilateral right greater than left effusions. The right-sided effusion appears to be loculated. The patient underwent a pigtail catheter insertion and subsequent incisional thrombolytics into the right hemithorax. The catheter fell off today and the patient doesn't have a catheter this point in time. the patient has extensive pleural plaquing and calcification. Rule out malignancy, rule out mesothelioma. Another catheter was inserted on 03/17/2022. The patient received a total of 2 doses of thrombolytics. Output is bloody. The chest x- ray from 03/18/2022 shows a loculated pneumothorax in the right lung base.n Status post pigtail catheter insertion, 03/14/2022. The catheter came out on 03/17/2022 Pleural plaquing, rule out underlying asbestosis Acute fluid overload, secondary to end-stage renal disease. End-stage renal disease, currently on 3 times a week hemodialysis. History of CAD with previous bypass grafting. History of diabetes mellitus. History of hypertension. Prior history of tobacco use. History of hyperlipidemia. Plan: Check for any pleural fluid cytology No need for thrombolytic today We'll decide if further intervention is needed based on the results of the pleural fluid cytology. Is very much likely due to the patient will need a tho racoscopic pleural evaluation, pleural biopsy at the later stage. we'll continue to follow
--- NOTE | 2022-03-18 10:05 | XR ---
EXAMINATION TYPE: XR chest 1V portable DATE OF EXAM: 03/18/2022 COMPARISON: CT 03/17/2022 HISTORY: Chest tube for pleural effusion TECHNIQUE: Single frontal view of the chest is obtained. FINDINGS: A right sided pleural drainage catheter is now present. The previous right-sided hydropneu mothorax has been predominantly replaced with air. Overall size is fairly unchanged. Otherwise fairly unchanged chest compared to prior day. Dense right lower lung opacities likely combination of calcif ied pleural plaque, pleural thickening, and some element of airspace disease. IMPRESSION: Placement of a right-sided pleural drainage catheter. Previous right-sided hydropneumoth orax largely replaced with air. Overall size is fairly unchanged.
[2022-03-18 10:23] LABS: Basophils # (A) 0.07 X 10*3/uL (0.00-0.10); Basophils % (A) 0.9 %; Eosinophils # (A) 0.22 X 10*3/uL (0.04-0.35); Eosinophils % (A) 2.8 %; HCT 29.4 % (39.6-50.0); HGB 9.4 g/dL (13.0-17.0); Immature Grans, Automated 0.3 %; Lymphocytes # (A) 1.22 X 10*3/uL (0.90-5.00); Lymphocytes % (A) 15.8 %; MCH 30.8 pg (27.0-32.0); MCV 96.4 fL (80.0-97.0); Mean Platelet Volume 10.3 fL (9.5-12.2); Monocytes # (A) 0.69 X 10*3/uL (0.20-1.00); Monocytes % (A) 8.9 %; NRBC Per 100 WBC 0 /100 WBCS (0.0-0.0); Neutrophils % (A) 71.3 %; Platelet Count 263 X 10*3/uL (140-440); RBC 3.05 X 10*6/uL (4.40-5.60); RDW 15.1 % (11.5-14.5); WBC 7.72 X 10*3/uL (4.50-10.00)
[2022-03-18 10:35] VITALS: BMI 30.6
--- NOTE | 2022-03-18 10:46 | P.PN ---
Subjective Patient is seen in follow-up for end-stage renal disease. He is maintained on hemodialysis on Thursday schedule. Chest tube reinserted. Denies chest pain or shortness of breath. On room air. Vital signs are stable. General: No acute distress. HEENT: Head exam is unremarkable. LUNGS: Breath sounds decreased. Chest tube noted. HEART: Rate and Rhythm are regular. ABDOMEN: Soft, no distention. EXTREMITITES: No edema. Objective - Vital Signs Vital signs: Vital Signs Temp 97.8 F 03/18/22 07:05 Pulse 61 03/18/22 07:05 Resp 16 03/18/22 07:05 BP 138/62 03/18/22 07:05 Pulse Ox 97 03/18/22 07:05 FiO2 21 03/12/22 20:59 Intake & Output 03/17/22 03/18/22 03/18/22 18:59 06:59 18:59 Output Total 472 Balance -472 Weight 114 kg Output: Chest Tube Drainage 470 Thora-Vent 470 Stool 2 Other: Voiding Method Toilet # Voids 1 - Labs CBC & Chem 7: 03/18/22 06:31 03/16/22 04:57 Labs: Abnormal Lab Results - Last 24 Hours (Table) 03/17/22 03/17/22 03/17/22 Range/Units 10:15 11:22 17:01 RBC (4.40-5.60) X 10*6/uL Hgb (13.0-17.0) g/dL Hct (39.6-50.0) % RDW (11.5-14.5) % POC Glucose (mg/dL) 260 H 152 H (70-110) mg/dL Iron 58 L (65-175) ug/dL Transferrin 137.0 L (204.0-354.0) mg/dL Ferritin 1337.0 H (22.0-322.0) ng/mL 03/17/22 03/18/22 03/18/22 Range/Units 20:26 06:31 07:02 RBC 3.05 L (4.40-5.60) X 10*6/uL Hgb 9.4 L (13.0-17.0) g/dL Hct 29.4 L (39.6-50.0) % RDW 15.1 H (11.5-14.5) % POC Glucose (mg/dL) 212 H 181 H (70-110) mg/dL Iron (65-175) ug/dL Transferrin (204.0-354.0) mg/dL Ferritin (22.0-322.0) ng/mL Microbiology - Last 24 Hours (Table) 03/14/22 12:35 Gram Stain - Preliminary Pleural Fluid Body Fluid Culture - Preliminary Assessment and Plan Plan: Assessment: 1. End-stage renal disease maintained on hemodialysis on Thursday schedule. 2. Bilateral pleural effusions. Has chest 2. 3. Acute on chronic diastolic CHF and [id number] mitral regurgitation. 4. Chronic kidney disease mineral bone disease maintained on PhosLo. 5. Hypertension with chronic kidney disease. Stable. 6. Anemia of chronic kidney disease. High ferritin noted. Plan: Hemodialysis today. Add Aranesp. Maintain torsemide.
--- NOTE | 2022-03-18 10:53 | P.PN ---
Subjective Progress Note Date: 03/18/22 Principal diagnosis: Bilateral pleural effusions, acute onset of shortness of breath, acute diastolic heart failure. History of end-stage renal disease currently on hemodialysis, coronary artery disease status post 6 vessel CABG as well as PCI, hypertension, hyperlipidemia, diabetes mellitus, previous tobacco dependence POD #1 (second)right-sided pigtail catheter placement by interventional radiology The patient was seen and examined this morning sitting up in bed in no acute distress. Remains on room air with oxygen saturation in the high 90s, able to achieve 1500 mL on incentive spirometry. Remains afebrile. Preliminary Gram stain from pleural fluid demonstrates no organisms, cytology pending. Patient continues to receive dialysis per nephrology, currently receiving. Right-sided pigtail catheter accidentally pulled out Thursday afternoon by patient after first lytic dose instilled, replaced yesterday and second dose of lytics instilled. Patient has had 850 mL bloody drainage since new pigtail with second dose of lytics. CXR reviewed, patient has trapped lung. Objective - Vital Signs Vital signs: Vital Signs Temp 97.8 F 03/18/22 07:05 Pulse 61 03/18/22 07:05 Resp 16 03/18/22 07:05 BP 138/62 03/18/22 07:05 Pulse Ox 97 03/18/22 07:05 FiO2 21 03/12/22 20:59 Intake & Output 03/17/22 03/18/22 03/18/22 18:59 06:59 18:59 Output Total 472 Balance -472 Output: Chest Tube Drainage 470 Thora-Vent 470 Stool 2 Other: Voiding Method Toilet # Voids 1 - Exam CONSTITUTIONAL: Appears comfortable, cooperative, no acute distress RESPIRATORY: Lungs sounds diminished bilaterally. Respirations even, nonlabored. Currently on room air with oxygen saturation 97%. Able to pull 1500 mL on his incentive spirometry. Right-sided pigtail catheter present to continuous wall suction, 470 mL serosanguineous drainage overnight, 850 mL since placement of second pigtail. CARDIOVASCULAR: S1, S2 present. Regular rate and rhythm. Palpable peripheral pulses bilaterally. GASTROINTESTINAL: Abdomen soft, nontender, nondistended. Active bowel sounds present 4 quadrants. Tolerating diet. GENITOURINARY: Continues to void INTEGUMENTARY: Skin is warm and dry NEUROLOGIC: Cranial nerves II through XII intact MUSKULOSKELETAL: Able to move all extremities, strength equal bilaterally, gait normal PSYCHIATRIC: Oriented to person place and time, appropriate affect, intact judgment and insight - Allied health notes Allied health notes reviewed: nursing - Labs CBC & Chem 7: 03/18/22 06:31 03/16/22 04:57 Labs: Abnormal Lab Results - Last 24 Hours (Table) 03/17/22 03/17/22 03/17/22 Range/Units 10:15 11:22 17:01 POC Glucose (mg/dL) 260 H 152 H (70-110) mg/dL Iron 58 L (65-175) ug/dL Transferrin 137.0 L (204.0-354.0) mg/dL Ferritin 1337.0 H (22.0-322.0) ng/mL 03/17/22 03/18/22 Range/Units 20:26 07:02 POC Glucose (mg/dL) 212 H 181 H (70-110) mg/dL Iron (65-175) ug/dL Transferrin (204.0-354.0) mg/dL Ferritin (22.0-322.0) ng/mL Microbiology - Last 24 Hours (Table) 03/14/22 12:35 Gram Stain - Preliminary Pleural Fluid Body Fluid Culture - Preliminary - Imaging and Cardiology Chest x-ray: report reviewed, image reviewed Assessment and Plan Assessment: 1. Bilateral pleural effusions, right greater than left, status post right- sided pigtail catheter placement by interventional radiology 2. Acute onset of shortness of breath 3. Acute diastolic heart failure 4. End-stage renal disease currently on hemodialysis schedule 5. History of coronary artery disease status post 6 vessel CABG, status post PCI 6. Hypertension 7. Hyperlipidemia 8. Diabetes mellitus 9. Previous tobacco dependence Plan: 1. Will hold off on lytic instillation today. Await cytology results. If pleural biopsy needed will consider mini-thoracotomy for biopsy. Discussed between Dr. Wilkinson and Dr. Pichardo 2. Encourage incentive spirometry use 3. Increase activity as tolerated 4. Will monitor daily x-rays 5. Medical management of other comorbidities per primary care service
[2022-03-18] MEDS ORDERED: DARBEPOETIN ALFA 40 MCG/0.4 ML SYRINGE SQ SCH (11:00)
[2022-03-18 11:06] LABS: Glucose,Whole Blood 171 mg/dL (70-110)
[2022-03-18 11:20] LABS: African American GFR (CKD) 7.5 (60.0-200.0); Albumin 3.5 g/dL (3.8-4.9); Albumin/Globulin Ratio 1.25 (1.60-3.17); Anion Gap 14.1 mmol/L (10.00-18.00); BUN/Creat Ratio 7.03 Ratio (12.00-20.00); Blood Urea Nitrogen 53.4 mg/dL (9.0-27.0); Calcium 8.9 mg/dL (8.7-10.3); Carbon Dioxide 22.9 mmol/L (20.0-27.5); Globulin 2.8 g/dL (1.6-3.3); Non-African American GFR(CKD) 6.5 (60.0-200.0); Potassium 5.4 mmol/L (3.5-5.5); Total Bilirubin 0.3 mg/dL (0.30-1.20); Total Protein 6.3 g/dL (6.2-8.2)
[2022-03-18 16:54] LABS: Glucose,Whole Blood 328 mg/dL (70-110)
[2022-03-18 20:33] LABS: Glucose,Whole Blood 230 mg/dL (70-110)
[2022-03-18] MEDS: ESCITALOPRAM 20 MG TAB PO SCH (21:42)
[2022-03-18] MEDS: ATORVASTATIN 40 MG TAB PO SCH (21:42)
[2022-03-19] MEDS: HEPARIN SODIUM,PORCINE/PF 5,000 UNIT/0.5 ML SYRINGE SQ SCH ×4 (00:10→23:42)
[2022-03-19 07:07] LABS: Glucose,Whole Blood 186 mg/dL (70-110)
[2022-03-19] MEDS: INSULIN ASPART (NovoLOG) 100 UNIT/ML VIAL SQ SCH ×4 (07:50→19:59)
[2022-03-19] MEDS: hydrALAZINE HCL 25 MG TAB PO SCH ×3 (07:51→21:12)
[2022-03-19] MEDS: FOLIC ACID-VIT B COMPLEX-VIT C 1 CAP PO SCH (07:51)
[2022-03-19] MEDS: ASPIRIN 81 MG PO SCH (07:51)
[2022-03-19] MEDS: carvediloL 3.125 MG TAB PO SCH ×2 (07:51→17:54)
[2022-03-19] MEDS: CALCIUM ACETATE 667 MG TAB PO SCH ×3 (07:51→17:54)
[2022-03-19] MEDS: TORSEMIDE 20 MG TAB PO SCH (07:51)
[2022-03-19] MEDS: PANTOPRAZOLE 40 MG TABLET PO SCH ×2 (07:51→17:54)
[2022-03-19] MEDS: amLODIPine 10 MG TAB PO SCH (07:51)
--- NOTE | 2022-03-19 07:57 | XR ---
EXAMINATION TYPE: XR chest 1V portable DATE OF EXAM: 03/19/2022 6:59 AM COMPARISON: Chest radiographs from 03/18/2022 TECHNIQUE: XR chest 1V portable Portable AP radiograph of the chest. CLINICAL INDICATION:Male, 72 years old with history of effusion; FINDINGS: Stable right-sided pleural drainage catheter. Mildly decreased size of right-sided hydropneumothorax. Dense right lower lung opacity is likely again comminution calcified pleural plaque, pleural thicken ing and airspace disease. Stable enlarged heart. Midline sternotomy wires. No acute osseous intramedu llary. IMPRESSION: Stable right-sided pleural drainage catheter with mildly decreased size of right-sided hydropneumotho rax.
--- NOTE | 2022-03-19 08:58 | P.PN ---
Subjective Progress Note Date: 03/19/22 Principal diagnosis: Bilateral pleural effusions, acute onset of shortness of breath, acute diastolic heart failure. History of end-stage renal disease currently on hemodialysis, coronary artery disease status post 6 vessel CABG as well as PCI, hypertension, hyperlipidemia, diabetes mellitus, previous tobacco dependence POD #2 (second)right-sided pigtail catheter placement by interventional radiology The patient was seen and examined this morning sitting up in bed in no acute distress eating breakfast. Remains on room air with oxygen saturation in the high 90s, able to achieve 1500 mL on incentive spirometry. Remains afebrile. Preliminary Gram stain from pleural fluid demonstrates no organisms, cytology pending. Patient continues to receive dialysis per nephrology. Right-sided pigtail catheter remains present, no lytic instillation yesterday, drained 950 bloody drainage in the last 24 hours. CXR reviewed, patient has trapped lung. Objective - Vital Signs Vital signs: Vital Signs Temp 98.2 F 03/19/22 07:08 Pulse 77 03/19/22 07:08 Resp 16 03/19/22 07:08 BP 142/66 03/19/22 07:08 Pulse Ox 97 03/19/22 07:08 FiO2 21 03/12/22 20:59 Intake & Output 03/18/22 03/19/22 03/19/22 18:59 06:59 18:59 Intake Total 550 Output Total 3002 702 Balance -2452 -702 Weight 114 kg Intake: Tube Feeding 50 Hemodialysis 500 Output: Chest Tube Drainage 700 Thora-Vent 700 Stool 2 2 Hemodialysis 3000 Other: Voiding Method Toilet Toilet # Voids 1 - Exam CONSTITUTIONAL: Appears comfortable, cooperative, no acute distress RESPIRATORY: Lungs sounds diminished bilaterally. Respirations even, nonlabored. Currently on room air with oxygen saturation 97%. Able to pull 1500 mL on his incentive spirometry. Right-sided pigtail catheter present to continuous wall suction, 950 mL bloody drainage in the last 24 hours CARDIOVASCULAR: S1, S2 present. Regular rate and rhythm. Palpable peripheral pulses bilaterally. GASTROINTESTINAL: Abdomen soft, nontender, nondistended. Active bowel sounds present 4 quadrants. Tolerating diet. GENITOURINARY: Continues to void INTEGUMENTARY: Skin is warm and dry NEUROLOGIC: Cranial nerves II through XII intact MUSKULOSKELETAL: Able to move all extremities, strength equal bilaterally, gait normal PSYCHIATRIC: Oriented to person place and time, appropriate affect, intact judgment and insight - Allied health notes Allied health notes reviewed: nursing - Labs CBC & Chem 7: 03/18/22 06:31 03/18/22 06:31 Labs: Abnormal Lab Results - Last 24 Hours (Table) 03/18/22 03/18/22 03/18/22 Range/Units 06:31 06:31 11:04 RBC 3.05 L (4.40-5.60) X 10*6/uL Hgb 9.4 L (13.0-17.0) g/dL Hct 29.4 L (39.6-50.0) % RDW 15.1 H (11.5-14.5) % Sodium 132 L (135-145) mmol/L Chloride 95 L (96-109) mmol/L BUN 53.4 H (9.0-27.0) mg/dL Creatinine 7.6 H* (0.6-1.5) mg/dL Est GFR (CKD-EPI)AfAm 7.5 L (60.0-200.0) Est GFR (CKD-EPI)NonAf 6.5 L (60.0-200.0) BUN/Creatinine Ratio 7.03 L (12.00-20.00) Ratio Glucose 169 H (70-110) mg/dL POC Glucose (mg/dL) 171 H (70-110) mg/dL Albumin 3.5 L (3.8-4.9) g/dL Albumin/Globulin Ratio 1.25 L (1.60-3.17) g/dL 03/18/22 03/18/22 03/19/22 Range/Units 16:52 20:30 07:05 RBC (4.40-5.60) X 10*6/uL Hgb (13.0-17.0) g/dL Hct (39.6-50.0) % RDW (11.5-14.5) % Sodium (135-145) mmol/L Chloride (96-109) mmol/L BUN (9.0-27.0) mg/dL Creatinine (0.6-1.5) mg/dL Est GFR (CKD-EPI)AfAm (60.0-200.0) Est GFR (CKD-EPI)NonAf (60.0-200.0) BUN/Creatinine Ratio (12.00-20.00) Ratio Glucose (70-110) mg/dL POC Glucose (mg/dL) 328 H 230 H 186 H (70-110) mg/dL Albumin (3.8-4.9) g/dL Albumin/Globulin Ratio (1.60-3.17) g/dL Microbiology - Last 24 Hours (Table) 03/14/22 12:35 Gram Stain - Preliminary Pleural Fluid Body Fluid Culture - Preliminary - Imaging and Cardiology Chest x-ray: report reviewed, image reviewed Assessment and Plan Assessment: 1. Bilateral pleural effusions, right greater than left, status post right- sided pigtail catheter placement by interventional radiology, received 2 doses total of lytics, LD 03/17/2022 2. Acute onset of shortness of breath 3. Acute diastolic heart failure 4. End-stage renal disease currently on hemodialysis schedule 5. History of coronary artery disease status post 6 vessel CABG, status post PCI 6. Hypertension 7. Hyperlipidemia 8. Diabetes mellitus 9. Previous tobacco dependence Plan: 1. Will hold off on lytic instillation. Await cytology results. Discussed with Dr. Pichardo 2. Encourage incentive spirometry use 3. Increase activity as tolerated 4. Will monitor daily x-rays 5. Medical management of other comorbidities per primary care service
[2022-03-19 10:48] LABS: Basophils # (A) 0.06 X 10*3/uL (0.00-0.10); Basophils % (A) 0.6 %; HCT 28.7 % (39.6-50.0); HGB 9.1 g/dL (13.0-17.0); Immature Grans, Automated 0.6 %; Lymphocytes # (A) 1.19 X 10*3/uL (0.90-5.00); Lymphocytes % (A) 11.9 %; MCH 30.4 pg (27.0-32.0); MCHC 31.7 g/dL (32.0-37.0); Mean Platelet Volume 10.6 fL (9.5-12.2); Monocytes # (A) 1.08 X 10*3/uL (0.20-1.00); Monocytes % (A) 10.8 %; NRBC Per 100 WBC 0 /100 WBCS (0.0-0.0); Neutrophils # (A) 7.52 X 10*3/uL (1.80-7.70); Neutrophils % (A) 75.1 %; Platelet Count 254 X 10*3/uL (140-440); RBC 2.99 X 10*6/uL (4.40-5.60); RDW 15.4 % (11.5-14.5); WBC 10.01 X 10*3/uL (4.50-10.00)
--- NOTE | 2022-03-19 11:04 | PN ---
PROGRESS NOTE SUBJECTIVE: A 72-year-old white male, who still has lot of bright red blood fluid coming out of his thoracentesis tube suspicious for mesothelioma. Waiting for cytology to come back. 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 Discussed case with his daughter today. She says she has an appointment with Dr. Pichardo tomorrow to talk about everything. Waiting for cytology to come back on the fluid. Continue with chest tube at this time. Discussed the case with the patient, but did not mention anything about cancer per daughter's request, and so, she is present. Dr. Pichardo will discuss it with her tomorrow. OBJECTIVE: VITAL SIGNS: Temp 98.9, blood pressure 140/53, pulse 69, respiratory rate 16 to 18, O2 of 98%. CARDIOVASCULAR: S1, S2. LUNGS: Decreased breath sounds. PSYCH: Fair mood and affect. NEUROLOGIC: Alert and oriented x3. HEMATOLOGY: Negative Homans. Chest tube is in the right side of the chest. Dr. Chatterjee saw the patient for end-stage renal disease, getting dialysis 3 times a week, FiO2 is 21, and O2 saturation is 97%, blood pressure 138/62, pulse 61, respiratory rate 16 to 18, temp 97.8. ASSESSMENT: Acute on chronic diastolic heart failure, [id number] mitral regurgitation, chronic kidney disease, maintained on PhosLo, hypertension, anemia of chronic kidney disease, high ferritin. Aranesp has been added. Torsemide has been continued. Continue with chest tube. Wait for cytology reports. MMODL / IJN: [id number] /
--- NOTE | 2022-03-19 11:07 | P.PN ---
Subjective Progress Note Date: 03/19/22 72-year-old male, seen in the emergency room, room #27. This is a patient who was seen in the emergency department initially on March 10. He came into the emergency room with complaints of shortness of breath, cough, and chest pain. The patient does have a history of end-stage renal disease, typically on Thursday, , and Thursday hemodialysis. He also has history of diabetes, hypertension, CAD, and previous bypass grafting. Over the last 10-14 days, the patient admits to increasing shortness of breath, and cough. He also has worsening orthopnea. The patient had a chest x-ray which revealed a pleural effusion, which was noted to be bilaterally, worse on the right side. It also appears to be loculated. The patient is typically not on home oxygen, but his saturations initially in the ER, were in the high 80s. He was placed on 2 L. He is not on any IV fluids. White count 9.6, hemoglobin 10.2, hematocrit 30.9, and platelet count 263,000. Sodium 135, potassium I.0, chloride 96, CO2 29, BUN 27, and creatinine 5.79. N-terminal proBNP was 72,500. Chest x-ray showed bilateral pleural effusion, right greater than left. The right-sided effusion is certainly loculated. The computed tomography scan showed bilateral pleural effusions, larger on the right side. There was no evidence of pulmonary embolism. There was calcified pleural plaque noted. The patient is seen today 03/12/2022 in follow-up on the selective care unit. He is currently sitting up in a chair at the bedside. Awake and alert in no acute distress. Maintaining good O2 saturations in the 90s on room air. No worsening shortness of breath, cough or congestion. No IV fluids. He did receive hemodialysis yesterday with 2.4 L removed. Chest x-ray from today is pending. White count 7.1. Hemoglobin 9.6. Platelets 238. Sodium 131. Potassium 4.6. BUN is 24. Creatinine 5.11. Glucose 201. He remains on oral diuretics. The patient is seen today 03/13/2022 in follow-up on the selective care unit. Currently resting comfortably in bed. Awake and alert in no acute distress. He is maintaining O2 saturations in the 90s on room air. No IV fluids currently. Chest x-ray continues to show right-sided loculated pleural effusion. Interventional radiologist for thoracentesis once his Plavix is held for 5 days. Otherwise the patient is doing well. No complaints. Echocardiogram reveals pr eserved left ventricular systolic function with ejection fraction of 50-55%. Blood glucose 147. Troponin negative 1. He remains on oral diuretics. Heparin for DVT prophylaxis. He should be receiving hemodialysis today. I'm evaluating this patient today 03/14/2022 in follow-up on a general medical floor. Patient is currently sitting up in bed, on room air, in no acute distress. At this time, patient was awaiting thoracentesis by IR. Apparently, later this afternoon, interventional radiology seen the patient for the thoracentesis, and decided to inserted a right pigtail catheter due to the effusion being quite loculated. Post insertion chest x-ray showed no pneumothorax with a significant reduction in the right-sided pleural effusion and consolidation. Pleural fluid cultures and cytology were ordered. He remains afebrile. No new labs to review today. Patient continues to receive Lasix daily. This is a hemodialysis patient. Vital signs remain stable. Progress note dated 03/15/2022. The patient is seen today in room 526. A pigtail catheter placed on the right side, on March 14. The patient had 600 mL out initially. He seems relatively comfortable. He sitting at the bedside. He is on room air. No IV fluids. The fluid from the right pleural space appears to be bloody. Awaiting chemistry on the fluid. White count 7.97, hemoglobin 10, hematocrit 32, and platelet count normal. Sodium 135, Potassium 4.7, chlorides 95, CO2 27, BUN 40, creatinine 6.8. Right pleural fluid analysis is currently pending. No chest x-ray today. Progress note dated 03/16/2022. The patient is seen in room 526. He is on room air. No IV fluids. The pleural effusion is an exudate based on the LDH and protein. The patient will have TPA instilled today. We have alerted cardiothoracic surgery. The patient is resting comfortably. No acute distress. Labs today include a white count of 6.94, hemoglobin 9.7, hematocrit 31, and platelet count 273,000. Sodium 133, potassium 4.5, chlorides 94, CO2 30, BUN 26, creatinine 5. No chest x-ray was done, but one is ordered. Microbiology on the pleural fluid is thus far negative. On today's evaluation of 03/17/2022, the patient is being seen for a follow-up. He currently is in the hospital for a episode of shortness of breath and hypoxemic respiratory failure. The patient also had a loculated right-sided pleural effusion the patient had a pigtail catheter inserted on 03/14/2022. He has other comorbidities including end-stage renal disease on hemodialysis, coronary artery disease with previous bypass surgery, diabetes and hypertension and he is a chronic smoker and has hyperlipidemia. The fluid from the pigtail catheter was an exudate with an LDH of 467 and protein of 3.5 g. The cultures have been negative thus far. Note that the patient also had thrombolytics infused thrombolytics infused with adequate drainage. Noted the pigtail catheter was inserted by interventional radiology. He shortness of breath is improved. The pigtail catheter was removed and a chest x-ray from today. Upon review of CAT scan of the chest, there is pleural surface calcification and plaquing could be related to asbestosis and the patient has been exposed to asbestos in the past. Pleural fluid cytology is either not send orders pending On 03/18/2022, the patient is being seen for a follow-up. As mentioned yesterd ay, the patient's pigtail catheter was accidentally removed and based on that, a CAT scan of the chest was done and showed decrease in the size of the right- sided pleural effusion and there was a moderate-sized right-sided hydropneumothorax. There was minimal amount of subcu in his emphysema and de creased left-sided pleural effusion. At the same time, there was bilateral pleural/subpleural calcification right more than left. Based on that, the patient was given another pigtail catheter. Following that, the patient was also given thrombolytics. This morning, the patient has approximately 700 mL of bloody output. As mentioned, the patient has a loculated hydropneumothorax on the right side on today's chest x-ray. The patient is also going to undergo hemodialysis. Patient is currently on oxygen and he is on room air oxygen. The patient is awaiting pleural fluid cytology was sent yesterday for further evaluation. There is a high concern for malignancy in this patient. As mention ed, the pleural surfaces Extensively calcified and it may include some pleural plaquing. On 03/19/2022, seeing the patient for a follow-up. As mentioned, the patient has a trapped lung. 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 Adequate discussion with the patient's daughter over the phone. I was made aware that the patient started having recurrent pleural effusions bilateral following his cardiac surgery. The patient has undergone several thoracenteses on the left and 1 thoracenteses on the right and this was done by her cardiothoracic surgeon at [facility]. Based on those results, there was no evidence of any malignancy. As mentioned, the patient presented to us with an enlarging located right-sided pleural effusion. The pigtail catheter was inserted and the patient was given thrombolytics. The pleural fluid cytology is negative and there is some residual volume loss and hydropneumothorax on the right in the right lung is essentially trapped in the pleural surface is quite irregular, thickened, scar and has some plaques. The output from the pigtail catheter over the past 24 hours has been in the order of 750 mL and output is bloody. Based on that, adequate discussion with the patient's daughter. We are also discussing treatment options including the possibility of a video-assisted thoracoscopy and possibility of a Pleurx catheter, discharge. Objective - Vital Signs Vital signs: Vital Signs Temp 98.2 F 03/19/22 07:08 Pulse 77 03/19/22 07:08 Resp 16 03/19/22 07:08 BP 142/66 03/19/22 07:08 Pulse Ox 97 03/19/22 07:08 FiO2 21 03/12/22 20:59 Intake & Output 03/18/22 03/19/22 03/19/22 18:59 06:59 18:59 Intake Total 550 Output Total 3002 702 Balance -2452 -702 Weight 114 kg Intake: Tube Feeding 50 Hemodialysis 500 Output: Chest Tube Drainage 700 Thora-Vent 700 Stool 2 2 Hemodialysis 3000 Other: Voiding Method Toilet Toilet # Voids 1 - Exam CONSTITUTIONAL: Appears comfortable, cooperative, no acute distress RESPIRATORY: Lungs sounds diminished bilaterally. Respirations even, non labored. Currently on room air with oxygen saturation 93%. Able to pull 2500 mL on his incentive spirometry CARDIOVASCULAR: S1, S2 present. Regular rate and rhythm. Palpable peripheral pulses bilaterally. GASTROINTESTINAL: Abdomen soft, nontender, nondistended. Active bowel sounds present 4 quadrants. Tolerating diet. GENITOURINARY: Continues to void INTEGUMENTARY: Skin is warm and dry NEUROLOGIC: Cranial nerves II through XII intact MUSKULOSKELETAL: Able to move all extremities, strength equal bilaterally, gait normal PSYCHIATRIC: Oriented to person place and time, appropriate affect, intact judgment and insight - Labs CBC & Chem 7: 03/19/22 05:40 03/18/22 06:31 Labs: Abnormal Lab Results - Last 24 Hours (Table) 03/18/22 03/18/22 03/18/22 Range/Units 06:31 11:04 16:52 WBC (4.50-10.00) X 10*3/uL RBC (4.40-5.60) X 10*6/uL Hgb (13.0-17.0) g/dL Hct (39.6-50.0) % MCHC (32.0-37.0) g/dL RDW (11.5-14.5) % Immature Gran # (0.00-0.04) X 10*3/uL Monocytes # (0.20-1.00) X 10*3/uL Sodium 132 L (135-145) mmol/L Chloride 95 L (96-109) mmol/L BUN 53.4 H (9.0-27.0) mg/dL Creatinine 7.6 H* (0.6-1.5) mg/dL Est GFR (CKD-EPI)AfAm 7.5 L (60.0-200.0) Est GFR (CKD-EPI)NonAf 6.5 L (60.0-200.0) BUN/Creatinine Ratio 7.03 L (12.00-20.00) Ratio Glucose 169 H (70-110) mg/dL POC Glucose (mg/dL) 171 H 328 H (70-110) mg/dL Albumin 3.5 L (3.8-4.9) g/dL Albumin/Globulin Ratio 1.25 L (1.60-3.17) g/dL 03/18/22 03/19/22 03/19/22 Range/Units 20:30 05:40 07:05 WBC 10.01 H (4.50-10.00) X 10*3/uL RBC 2.99 L (4.40-5.60) X 10*6/uL Hgb 9.1 L (13.0-17.0) g/dL Hct 28.7 L (39.6-50.0) % MCHC 31.7 L (32.0-37.0) g/dL RDW 15.4 H (11.5-14.5) % Immature Gran # 0.06 H (0.00-0.04) X 10*3/uL Monocytes # 1.08 H (0.20-1.00) X 10*3/uL Sodium (135-145) mmol/L Chloride (96-109) mmol/L BUN (9.0-27.0) mg/dL Creatinine (0.6-1.5) mg/dL Est GFR (CKD-EPI)AfAm (60.0-200.0) Est GFR (CKD-EPI)NonAf (60.0-200.0) BUN/Creatinine Ratio (12.00-20.00) Ratio Glucose (70-110) mg/dL POC Glucose (mg/dL) 230 H 186 H (70-110) mg/dL Albumin (3.8-4.9) g/dL Albumin/Globulin Ratio (1.60-3.17) g/dL Microbiology - Last 24 Hours (Table) 03/14/22 12:35 Gram Stain - Final Pleural Fluid Body Fluid Culture - Final Assessment and Plan Plan: Acute shortness of breath with hypoxemia, currently on room air oxygen Loculated right-sided pleural effusion post pigtail catheter insertion and post thrombolytic administration. The floor still faces scar, irregular, thickened, and continues pleural plaques. The patient has history of asbestosis exposure. Possibility of mesothelioma cannot be ruled out. The patient has a negative pleural fluid cytology. On today's chest x-ray, the right lung is trapped in the right lung is not completely expanded. Output has been 7 50 mL of contrast 24 hours. History of bilateral pleural effusions developing post bypass surgery requiring bilateral thoracentesis done at [facility]. Status post pigtail catheter insertion, 03/14/2022. The catheter came out on 03/17/2022 Pleural plaquing, rule out underlying asbestosis End-stage renal disease. End-stage renal disease, currently on 3 times a week hemodialysis. History of CAD with previous bypass grafting. History of diabetes mellitus. History of hypertension. Prior history of tobacco use. History of hyperlipidemia. Plan: Pleural fluid cytology is negative Output is still considerably high The patient has a right-sided hydropneumothorax in the right lung is essentially trapped for the reasons mentioned above Suspicion for malignancy Discussed the findings with the daughter Possible thoracoscopy and Pleurx catheter insertion should we have surgical support from the cardiothoracic team.
[2022-03-19 11:10] LABS: Glucose,Whole Blood 242 mg/dL (70-110)
[2022-03-19 11:14] LABS: African American GFR (CKD) 10.7 (60.0-200.0); Albumin 3.3 g/dL (3.8-4.9); Albumin/Globulin Ratio 1.15 (1.60-3.17); Anion Gap 12.3 mmol/L (10.00-18.00); BUN/Creat Ratio 6.12 Ratio (12.00-20.00); Blood Urea Nitrogen 34.9 mg/dL (9.0-27.0); Calcium 9.1 mg/dL (8.7-10.3); Carbon Dioxide 26.6 mmol/L (20.0-27.5); Globulin 2.8 g/dL (1.6-3.3); Non-African American GFR(CKD) 9.2 (60.0-200.0); Potassium 4.6 mmol/L (3.5-5.5); Total Bilirubin 0.5 mg/dL (0.30-1.20); Total Protein 6.1 g/dL (6.2-8.2)
--- NOTE | 2022-03-19 11:51 | CDI ---
Documentation Clarification Form Date: 03/19/2022 11:04:29 AM From: Vanesa Villasenor RN CCDS Admit Date: 03/11/2022 12:39:00 AM Patient Name: Aldo Turpin Visit Number: [id number] Discharge Date: ATTENTION: The Clinical Documentation Specialists (CDI) and [facility] Coding Staff appreciate your assistance in clarifying documentation. Please respond to the clarification below the line at the bottom and electronically sign. The CDI & [facility] Coding staff will review the response and follow-up if needed. Please note: Queries are made part of the Legal Health Record. If you have any questions, please contact the author of this message via ITS. Dr. Isaak Amaya Conflicting documentation has been found in the medical record. As attending physician, please provide clarification. Acute Diastolic Heart Failure, Cardiothoracic Surgery, 03/12 03/19. Fluid overload, Medicine, 03/12 03/18. History/Risk Factors: 72-year-old male presents to the ED with cough and congestion, shortness of breath. Medical History: DM, ESRD and HTN. H&P, 03/12 Clinical Indicators: 03/10, VS: B/P 172/80, HR 27, Temp 98.7 F Oral, RR 14, SpO2 98% room air 03/10, N-Pro BNP: [id number] 03/10, CXR: Extensive pleural thickening on the right lateral chest wall. There is extensive infiltrate right lower lobe. There is some diffuse airspace infiltrate left lower lobe. 03/12, ECHO: LVH with EF of the lower limits of normal of about 50-55%. RV enlargement, 2+ mitral regurgitation. 03/18, Pulmonary Note: Acute fluid overload secondary to ESRD. 03/18, Nephrology Note: Acute on chronic diastolic CHF Treatment: 03/11 Hemodialysis Thursday, and Thursday. 03/11 Lasix 40mg IV x 1; 03/11 03/17 Lasix 40mg PO Daily; 03/18 Demadex 40mg PO Daily. Pigtail catheter, Infusions of thrombolytic. Please clarify which diagnosis is most appropriate: [ ] Acute Diastolic Heart Failure [ ] Acute Fluid overload secondary to ESRD [ ] Other (please specify) [ ] Unable to determine Documented 03/18 Medicine note, Dr Amaya: Acute on chronic diastolic heart failure, [id number] mitral regurgitation (Template Last Revised: April 2020) [facility]
--- NOTE | 2022-03-19 12:44 | P.PN ---
Subjective Patient is seen in follow-up for end-stage renal disease. He is maintained on hemodialysis on Thursday schedule. No problems with dialysis yesterday. Denies chest pain or shortness of breath. On room air. Family present at bedside. Vital signs are stable. General: No acute distress. HEENT: Head exam is unremarkable. LUNGS: Breath sounds decreased. Chest tube noted. HEART: Rate and Rhythm are regular. ABDOMEN: Soft, no distention. EXTREMITITES: No edema. Objective - Vital Signs Vital signs: Vital Signs Temp 98.2 F 03/19/22 07:08 Pulse 77 03/19/22 07:08 Resp 16 03/19/22 07:08 BP 142/66 03/19/22 07:08 Pulse Ox 98 03/19/22 11:12 FiO2 21 03/19/22 11:12 Intake & Output 03/18/22 03/19/22 03/19/22 18:59 06:59 18:59 Intake Total 550 Output Total 3002 702 Balance -2452 -702 Weight 114 kg Intake: Tube Feeding 50 Hemodialysis 500 Output: Chest Tube Drainage 700 Thora-Vent 700 Stool 2 2 Hemodialysis 3000 Other: Voiding Method Toilet Toilet # Voids 1 - Labs CBC & Chem 7: 03/19/22 05:40 03/19/22 05:40 Labs: Abnormal Lab Results - Last 24 Hours (Table) 03/18/22 03/18/22 03/19/22 Range/Units 16:52 20:30 05:40 WBC 10.01 H (4.50-10.00) X 10*3/uL RBC 2.99 L (4.40-5.60) X 10*6/uL Hgb 9.1 L (13.0-17.0) g/dL Hct 28.7 L (39.6-50.0) % MCHC 31.7 L (32.0-37.0) g/dL RDW 15.4 H (11.5-14.5) % Immature Gran # 0.06 H (0.00-0.04) X 10*3/uL Monocytes # 1.08 H (0.20-1.00) X 10*3/uL Sodium (135-145) mmol/L Chloride (96-109) mmol/L BUN (9.0-27.0) mg/dL Creatinine (0.6-1.5) mg/dL Est GFR (CKD-EPI)AfAm (60.0-200.0) Est GFR (CKD-EPI)NonAf (60.0-200.0) BUN/Creatinine Ratio (12.00-20.00) Ratio Glucose (70-110) mg/dL POC Glucose (mg/dL) 328 H 230 H (70-110) mg/dL AST (14-35) U/L ALT (10-49) U/L Total Protein (6.2-8.2) g/dL Albumin (3.8-4.9) g/dL Albumin/Globulin Ratio (1.60-3.17) g/dL 03/19/22 03/19/22 03/19/22 Range/Units 05:40 07:05 11:08 WBC (4.50-10.00) X 10*3/uL RBC (4.40-5.60) X 10*6/uL Hgb (13.0-17.0) g/dL Hct (39.6-50.0) % MCHC (32.0-37.0) g/dL RDW (11.5-14.5) % Immature Gran # (0.00-0.04) X 10*3/uL Monocytes # (0.20-1.00) X 10*3/uL Sodium 133 L (135-145) mmol/L Chloride 94 L (96-109) mmol/L BUN 34.9 H (9.0-27.0) mg/dL Creatinine 5.7 H (0.6-1.5) mg/dL Est GFR (CKD-EPI)AfAm 10.7 L (60.0-200.0) Est GFR (CKD-EPI)NonAf 9.2 L (60.0-200.0) BUN/Creatinine Ratio 6.12 L (12.00-20.00) Ratio Glucose 168 H (70-110) mg/dL POC Glucose (mg/dL) 186 H 242 H (70-110) mg/dL AST 11 L (14-35) U/L ALT 8 L (10-49) U/L Total Protein 6.1 L (6.2-8.2) g/dL Albumin 3.3 L (3.8-4.9) g/dL Albumin/Globulin Ratio 1.15 L (1.60-3.17) g/dL Microbiology - Last 24 Hours (Table) 03/14/22 12:35 Gram Stain - Final Pleural Fluid Body Fluid Culture - Final Assessment and Plan Plan: Assessment: 1. End-stage renal disease maintained on hemodialysis on Thursday schedule. 2. Bilateral pleural effusions. Has chest tube. Pleural fluid cytology negative. Thoracoscopy be considered. 3. Acute on chronic diastolic CHF and [id number] mitral regurgitation. 4. Chronic kidney disease mineral bone disease maintained on PhosLo. 5. Hypertension with chronic kidney disease. Stable. 6. Anemia of chronic kidney disease. High ferritin noted. On Aranesp. Plan: Hemodialysis tomorrow. Maintain torsemide.
[2022-03-19 17:07] LABS: Glucose,Whole Blood 170 mg/dL (70-110)
[2022-03-19] MEDS: ATORVASTATIN 40 MG TAB PO SCH (19:59)
[2022-03-19] MEDS: ESCITALOPRAM 20 MG TAB PO SCH (19:59)
[2022-03-19 20:00] LABS: Glucose,Whole Blood 195 mg/dL (70-110)
[2022-03-20 06:52] LABS: Glucose,Whole Blood 157 mg/dL (70-110)
[2022-03-20] MEDS: hydrALAZINE HCL 25 MG TAB PO SCH ×3 (08:36→21:07)
[2022-03-20] MEDS: PANTOPRAZOLE 40 MG TABLET PO SCH ×2 (08:36→17:25)
[2022-03-20] MEDS: FOLIC ACID-VIT B COMPLEX-VIT C 1 CAP PO SCH (08:36)
[2022-03-20] MEDS: CALCIUM ACETATE 667 MG TAB PO SCH ×3 (08:36→17:25)
[2022-03-20] MEDS: ASPIRIN 81 MG PO SCH (08:36)
[2022-03-20] MEDS: amLODIPine 10 MG TAB PO SCH (08:36)
[2022-03-20] MEDS: HEPARIN SODIUM,PORCINE/PF 5,000 UNIT/0.5 ML SYRINGE SQ SCH ×2 (08:36→17:26)
[2022-03-20] MEDS: carvediloL 3.125 MG TAB PO SCH ×2 (08:36→17:25)
[2022-03-20] MEDS: INSULIN ASPART (NovoLOG) 100 UNIT/ML VIAL SQ SCH ×4 (08:36→20:40)
[2022-03-20] MEDS: TORSEMIDE 20 MG TAB PO SCH (08:37)
--- NOTE | 2022-03-20 10:27 | XR ---
EXAMINATION TYPE: XR chest 1V portable DATE OF EXAM: 03/20/2022 COMPARISON: 03/19/2022 HISTORY: Effusion TECHNIQUE: Single frontal view of the chest is obtained. FINDINGS: The heart is enlarged and there are median sternotomy postsurgical changes. Right-sided pl eural pigtail drainage catheter perhaps with minimal increased size of the hydropneumothorax. Dense r ight mid to lower lung opacities on the basis of calcified pleural plaque, pleural thickening, and so me element of airspace disease. IMPRESSION: Perhaps minimal increased size of the hydropneumothorax, but no other significant interv al change.
[2022-03-20 11:03] LABS: Glucose,Whole Blood 145 mg/dL (70-110)
--- NOTE | 2022-03-20 11:45 | P.PN ---
Subjective Progress Note Date: 03/20/22 Principal diagnosis: Bilateral pleural effusions, acute onset of shortness of breath, acute diastolic heart failure. Past medical history significant for history of end-stage renal disease on hemodialysis, history of 2 previous pleural effusions, status post thoracentesis 21 on the left and one on the right, coronary artery disease status post 6 vessel CABG as well as PCI, hypertension, hyperlipidemia, diabetes mellitus, previous tobacco dependence. POD #3 (second)right-sided pigtail catheter placement by interventional radiology. The patient was seen and examined in follow-up today 03/20/2022 at his bedside on the fifth floor medical oncology unit. Currently sitting up to bedside edge eating his breakfast, is awake, alert, oriented 3 and is in no acute apparent d istress. Oxygen saturations are 98% on room air and he is achieving around 2000 mL on insulin since her spirometry with encouragement. Right chest pigtail catheter remains in place to low continuous wall suction -20 cm H2O. No air leak is present. Draining thin serosanguineous drainage with 200 mL output in the last [address] Pichardo has discussed today with the patient's daughter in regards to Pleurx catheter placement versus VATS procedure with biopsy. Pleural fluid cytology report obtained from [facility] which shows mesothelial cells and inflammatory cells seen, and no evidence of malignancy. The patient's pleural fluid cytology from 03/17/2022 shows hypocellular specimen consisting of mainly blood, and no cytologically malignant cells were identified. Chest x-ray report from today shows minimal increase in size of the hydropneumothorax with no other significant interval changes. Objective - Vital Signs Vital signs: Vital Signs Temp 97.8 F 03/20/22 06:50 Pulse 64 03/20/22 06:50 Resp 17 03/20/22 06:50 BP 160/57 03/20/22 06:50 Pulse Ox 98 03/20/22 06:50 FiO2 21 03/19/22 11:12 Intake & Output 03/19/22 03/20/22 03/20/22 18:59 06:59 18:59 Intake Total 118 Output Total 75 115 Balance -75 3 Intake: Oral 118 Output: Chest Tube Drainage 75 115 Thora-Vent 75 115 Other: Voiding Method Toilet Toilet # Bowel Movements 0 1 - Exam CONSTITUTIONAL: Appears comfortable, cooperative, no acute distress. RESPIRATORY: Lungs sounds diminished bilaterally to his bases right greater than left. Respirations are symmetrical and nonlabored. Currently on room air with oxygen saturation 98%. Able to achieve 2000 mL on his incentive spirometry. Right-sided pigtail catheter present to continuous wall suction, 200 mL bloody drainage in the last 24 hours. CARDIOVASCULAR: S1, S2 present. Regular rate and rhythm. Palpable peripheral pulses bilaterally. GASTROINTESTINAL: Abdomen soft, nontender, nondistended. Active bowel sounds present 4 quadrants. Tolerating diet. GENITOURINARY: Continues to void. INTEGUMENTARY: Skin is warm and dry, no evidence of clubbing or cyanosis is present. Dressing is clean, dry and intact to the right chest pigtail catheter. NEUROLOGIC: Cranial nerves II through XII intact. No focal deficits. MUSKULOSKELETAL: Able to move all extremities, strength equal bilaterally, gait normal. PSYCHIATRIC: Oriented to person place and time, appropriate affect, intact judgment and insight. - Allied health notes Allied health notes reviewed: nursing - Labs CBC & Chem 7: 03/19/22 05:40 03/19/22 05:40 Labs: Abnormal Lab Results - Last 24 Hours (Table) 03/19/22 03/19/22 03/20/22 Range/Units 17:06 19:57 06:51 POC Glucose (mg/dL) 170 H 195 H 157 H (70-110) mg/dL 03/20/22 Range/Units 11:02 POC Glucose (mg/dL) 145 H (70-110) mg/dL Microbiology - Last 24 Hours (Table) 03/14/22 12:35 Gram Stain - Final Pleural Fluid Body Fluid Culture - Final - Imaging and Cardiology Chest x-ray: report reviewed, image reviewed Assessment and Plan Assessment: 1. Bilateral pleural effusions, right greater than left, status post right sided pigtail catheter placement by interventional radiology, has received 2 doses of alteplase/dornase with his last dose on 03/17/2022 2. Acute onset of shortness of breath, likely secondary to above 3. Acute diastolic heart failure 4. End-stage renal disease, receives hemodialysis treatments 3 times a week 5. History of coronary artery disease status post coronary artery bypass grafting surgery 6 vessels, status post PCI 6. Hypertension 7. Hyperlipidemia 8. Diabetes mellitus 9. Remote history of nicotine dependence, quit smoking 15-20 years ago. Plan: 1. Will continue to hold off on lytic instillation today. Dr. Pichardo discussed with Dr. Wilkinson in regards to Pleurx catheter placement or right VATS with biopsy. 2. Encourage incentive spirometry use 10 times every hour while awake. 3. Increase activity as tolerated, out of bed for all meals. Ambulate as tolerated. 4. Will monitor daily chest x-rays. 5. Medical management of other comorbidities per primary care service. 6. More recommendations to follow based on patient's clinical course. Time with Patient: Greater than 30
--- NOTE | 2022-03-20 12:19 | P.PN ---
Subjective Progress Note Date: 03/20/22 72-year-old male, seen in the emergency room, room #27. This is a patient who was seen in the emergency department initially on March 10. He came into the emergency room with complaints of shortness of breath, cough, and chest pain. The patient does have a history of end-stage renal disease, typically on Thursday, , and Thursday hemodialysis. He also has history of diabetes, hypertension, CAD, and previous bypass grafting. Over the last 10-14 days, the patient admits to increasing shortness of breath, and cough. He also has worsening orthopnea. The patient had a chest x-ray which revealed a pleural effusion, which was noted to be bilaterally, worse on the right side. It also appears to be loculated. The patient is typically not on home oxygen, but his saturations initially in the ER, were in the high 80s. He was placed on 2 L. He is not on any IV fluids. White count 9.6, hemoglobin 10.2, hematocrit 30.9, and platelet count 263,000. Sodium 135, potassium I.0, chloride 96, CO2 29, BUN 27, and creatinine 5.79. N-terminal proBNP was 72,500. Chest x-ray showed bilateral pleural effusion, right greater than left. The right-sided effusion is certainly loculated. The computed tomography scan showed bilateral pleural effusions, larger on the right side. There was no evidence of pulmonary embolism. There was calcified pleural plaque noted. The patient is seen today 03/12/2022 in follow-up on the selective care unit. He is currently sitting up in a chair at the bedside. Awake and alert in no acute distress. Maintaining good O2 saturations in the 90s on room air. No worsening shortness of breath, cough or congestion. No IV fluids. He did receive hemodialysis yesterday with 2.4 L removed. Chest x-ray from today is pending. White count 7.1. Hemoglobin 9.6. Platelets 238. Sodium 131. Potassium 4.6. BUN is 24. Creatinine 5.11. Glucose 201. He remains on oral diuretics. The patient is seen today 03/13/2022 in follow-up on the selective care unit. Currently resting comfortably in bed. Awake and alert in no acute distress. He is maintaining O2 saturations in the 90s on room air. No IV fluids currently. Chest x-ray continues to show right-sided loculated pleural effusion. Interventional radiologist for thoracentesis once his Plavix is held for 5 days. Otherwise the patient is doing well. No complaints. Echocardiogram reveals pr eserved left ventricular systolic function with ejection fraction of 50-55%. Blood glucose 147. Troponin negative 1. He remains on oral diuretics. Heparin for DVT prophylaxis. He should be receiving hemodialysis today. I'm evaluating this patient today 03/14/2022 in follow-up on a general medical floor. Patient is currently sitting up in bed, on room air, in no acute distress. At this time, patient was awaiting thoracentesis by IR. Apparently, later this afternoon, interventional radiology seen the patient for the thoracentesis, and decided to inserted a right pigtail catheter due to the effusion being quite loculated. Post insertion chest x-ray showed no pneumothorax with a significant reduction in the right-sided pleural effusion and consolidation. Pleural fluid cultures and cytology were ordered. He remains afebrile. No new labs to review today. Patient continues to receive Lasix daily. This is a hemodialysis patient. Vital signs remain stable. Progress note dated 03/15/2022. The patient is seen today in room 526. A pigtail catheter placed on the right side, on March 14. The patient had 600 mL out initially. He seems relatively comfortable. He sitting at the bedside. He is on room air. No IV fluids. The fluid from the right pleural space appears to be bloody. Awaiting chemistry on the fluid. White count 7.97, hemoglobin 10, hematocrit 32, and platelet count normal. Sodium 135, Potassium 4.7, chlorides 95, CO2 27, BUN 40, creatinine 6.8. Right pleural fluid analysis is currently pending. No chest x-ray today. Progress note dated 03/16/2022. The patient is seen in room 526. He is on room air. No IV fluids. The pleural effusion is an exudate based on the LDH and protein. The patient will have TPA instilled today. We have alerted cardiothoracic surgery. The patient is resting comfortably. No acute distress. Labs today include a white count of 6.94, hemoglobin 9.7, hematocrit 31, and platelet count 273,000. Sodium 133, potassium 4.5, chlorides 94, CO2 30, BUN 26, creatinine 5. No chest x-ray was done, but one is ordered. Microbiology on the pleural fluid is thus far negative. On today's evaluation of 03/17/2022, the patient is being seen for a follow-up. He currently is in the hospital for a episode of shortness of breath and hypoxemic respiratory failure. The patient also had a loculated right-sided pleural effusion the patient had a pigtail catheter inserted on 03/14/2022. He has other comorbidities including end-stage renal disease on hemodialysis, coronary artery disease with previous bypass surgery, diabetes and hypertension and he is a chronic smoker and has hyperlipidemia. The fluid from the pigtail catheter was an exudate with an LDH of 467 and protein of 3.5 g. The cultures have been negative thus far. Note that the patient also had thrombolytics infused thrombolytics infused with adequate drainage. Noted the pigtail catheter was inserted by interventional radiology. He shortness of breath is improved. The pigtail catheter was removed and a chest x-ray from today. Upon review of CAT scan of the chest, there is pleural surface calcification and plaquing could be related to asbestosis and the patient has been exposed to asbestos in the past. Pleural fluid cytology is either not send orders pending On 03/18/2022, the patient is being seen for a follow-up. As mentioned yesterd ay, the patient's pigtail catheter was accidentally removed and based on that, a CAT scan of the chest was done and showed decrease in the size of the right- sided pleural effusion and there was a moderate-sized right-sided hydropneumothorax. There was minimal amount of subcu in his emphysema and de creased left-sided pleural effusion. At the same time, there was bilateral pleural/subpleural calcification right more than left. Based on that, the patient was given another pigtail catheter. Following that, the patient was also given thrombolytics. This morning, the patient has approximately 700 mL of bloody output. As mentioned, the patient has a loculated hydropneumothorax on the right side on today's chest x-ray. The patient is also going to undergo hemodialysis. Patient is currently on oxygen and he is on room air oxygen. The patient is awaiting pleural fluid cytology was sent yesterday for further evaluation. There is a high concern for malignancy in this patient. As mention ed, the pleural surfaces Extensively calcified and it may include some pleural plaquing. On 03/19/2022, seeing the patient for a follow-up. As mentioned, the patient has a trapped lung. 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 Adequate discussion with the patient's daughter over the phone. I was made aware that the patient started having recurrent pleural effusions bilateral following his cardiac surgery. The patient has undergone several thoracenteses on the left and 1 thoracenteses on the right and this was done by her cardiothoracic surgeon at [facility]. Based on those results, there was no evidence of any malignancy. As mentioned, the patient presented to us with an enlarging located right-sided pleural effusion. The pigtail catheter was inserted and the patient was given thrombolytics. The pleural fluid cytology is negative and there is some residual volume loss and hydropneumothorax on the right in the right lung is essentially trapped in the pleural surface is quite irregular, thickened, scar and has some plaques. The output from the pigtail catheter over the past 24 hours has been in the order of 750 mL and output is bloody. Based on that, adequate discussion with the patient's daughter. We are also discussing treatment options including the possibility of a video-assisted thoracoscopy and possibility of a Pleurx catheter, discharge. 03/20/2022, the patient is being seen for a follow-up. The pigtail catheter in place and output has been in the order of 250 mL over the past 24 hours. As such, this is a drop in the output from the right-sided pigtail catheter. Meanwhile, a repeat chest x-ray was done and the patient continues to have similar findings with a loculated pneumothorax in the right lung base and there is a trapped lung with pleural thickening. There may be some minimal increase in size of the right-sided hydropneumothorax. Otherwise, no significant interval change. As mentioned, the patient has had multiple thoracenteses in the past. There is a concern for mesothelioma. I was able to obtain results of the previous pleural fluid cytology from [facility] indicating no malignancy. The pleural fluid cytology from our hospital was also negative. Objective - Vital Signs Vital signs: Vital Signs Temp 97.8 F 03/20/22 06:50 Pulse 64 03/20/22 06:50 Resp 17 03/20/22 06:50 BP 160/57 03/20/22 06:50 Pulse Ox 98 03/20/22 06:50 FiO2 21 03/19/22 11:12 Intake & Output 03/19/22 03/20/22 03/20/22 18:59 06:59 18:59 Intake Total 118 Output Total 75 115 Balance -75 3 Intake: Oral 118 Output: Chest Tube Drainage 75 115 Thora-Vent 75 115 Other: Voiding Method Toilet Toilet # Bowel Movements 0 1 - Exam CONSTITUTIONAL: Appears comfortable, cooperative, no acute distress RESPIRATORY: Lungs sounds diminished bilaterally. Respirations even, nonlabored. Currently on room air with oxygen saturation 93%. Able to pull 2500 mL on his incentive spirometry CARDIOVASCULAR: S1, S2 present. Regular rate and rhythm. Palpable peripheral pulses bilaterally. GASTROINTESTINAL: Abdomen soft, nontender, nondistended. Active bowel sounds present 4 quadrants. Tolerating diet. GENITOURINARY: Continues to void INTEGUMENTARY: Skin is warm and dry NEUROLOGIC: Cranial nerves II through XII intact MUSKULOSKELETAL: Able to move all extremities, strength equal bilaterally, gait normal PSYCHIATRIC: Oriented to person place and time, appropriate affect, intact judgment and insight - Labs CBC & Chem 7: 03/19/22 05:40 03/19/22 05:40 Labs: Abnormal Lab Results - Last 24 Hours (Table) 03/19/22 03/19/22 03/20/22 Range/Units 17:06 19:57 06:51 POC Glucose (mg/dL) 170 H 195 H 157 H (70-110) mg/dL 03/20/22 Range/Units 11:02 POC Glucose (mg/dL) 145 H (70-110) mg/dL Microbiology - Last 24 Hours (Table) 03/14/22 12:35 Gram Stain - Final Pleural Fluid Body Fluid Culture - Final Assessment and Plan Plan: Acute shortness of breath with hypoxemia, currently on room air oxygen Loculated right-sided pleural effusion post pigtail catheter insertion and post thrombolytic administration. The floor still faces scar, irregular, thickened, and continues pleural plaques. The patient has history of asbestosis exposure. Possibility of mesothelioma cannot be ruled out. The patient has a negative pleural fluid cytology. On today's chest x-ray, the right lung is trapped in the right lung is not completely expanded. Output has been 7 50 mL of contrast 24 hours. History of bilateral pleural effusions developing post bypass surgery requiring bilateral thoracentesis done at [facility]. Status post pigtail catheter insertion, 03/14/2022. The catheter came out on 03/17/2022 Pleural plaquing, rule out underlying asbestosis End-stage renal disease. End-stage renal disease, currently on 3 times a week hemodialysis. History of CAD with previous bypass grafting. History of diabetes mellitus. History of hypertension. Prior history of tobacco use. History of hyperlipidemia. Plan: Pleural fluid cytology is negative Output is improved compared to yesterday I had a lengthy discussion with the daughter A final decision regarding thoracoscopic evaluation with pleural biopsies and the Pleurx catheter versus simple conservative measures of Pleurx catheter drainage will be discussed with the surgeon and the family today. Based on that, a final decision will be done. The patient carries a poor prognosis. The pleural lining is quite trapped and scarred and calcified and possibly malignant. The thoracoscopic lung biopsy of the pleural surface may carry tone complication. All those things will be explained to the family and the patient and final decision will be made accordingly.
--- NOTE | 2022-03-20 12:25 | P.PN ---
Subjective Patient is seen in follow-up for end-stage renal disease. He is maintained on hemodialysis on Thursday schedule. Tolerating dialysis well. Denies chest pain or shortness of breath. On room air. Vital signs are stable. General: No acute distress. HEENT: Head exam is unremarkable. LUNGS: Breath sounds decreased. Chest tube noted. HEART: Rate and Rhythm are regular. ABDOMEN: Soft, no distention. EXTREMITITES: No edema. Objective - Vital Signs Vital signs: Vital Signs Temp 97.5 F L 03/20/22 12:20 Pulse 60 03/20/22 12:20 Resp 18 03/20/22 12:20 BP 101/54 03/20/22 12:20 Pulse Ox 98 03/20/22 12:20 FiO2 21 03/19/22 11:12 Intake & Output 03/19/22 03/20/22 03/20/22 18:59 06:59 18:59 Intake Total 118 Output Total 75 115 Balance -75 3 Intake: Oral 118 Output: Chest Tube Drainage 75 115 Thora-Vent 75 115 Other: Voiding Method Toilet Toilet # Bowel Movements 0 1 - Labs CBC & Chem 7: 03/19/22 05:40 03/19/22 05:40 Labs: Abnormal Lab Results - Last 24 Hours (Table) 03/19/22 03/19/22 03/20/22 Range/Units 17:06 19:57 06:51 POC Glucose (mg/dL) 170 H 195 H 157 H (70-110) mg/dL 03/20/22 Range/Units 11:02 POC Glucose (mg/dL) 145 H (70-110) mg/dL Microbiology - Last 24 Hours (Table) 03/14/22 12:35 Gram Stain - Final Pleural Fluid Body Fluid Culture - Final Assessment and Plan Plan: Assessment: 1. End-stage renal disease maintained on hemodialysis on Thursday schedule. 2. Bilateral pleural effusions. Has chest tube. Pleural fluid cytology negative. Thoracoscopy being considered. 3. Acute on chronic diastolic CHF and [id number] mitral regurgitation. 4. Chronic kidney disease mineral bone disease maintained on PhosLo. 5. Hypertension with chronic kidney disease. Stable. 6. Anemia of chronic kidney disease. High ferritin noted. On Aranesp. Plan: Currently seen while undergoing hemodialysis. Next treatment on Thursday. Maintain torsemide.
[2022-03-20 17:05] LABS: Glucose,Whole Blood 223 mg/dL (70-110)
[2022-03-20 20:03] LABS: Glucose,Whole Blood 167 mg/dL (70-110)
[2022-03-20] MEDS: ESCITALOPRAM 20 MG TAB PO SCH (20:39)
[2022-03-20] MEDS: ATORVASTATIN 40 MG TAB PO SCH (20:40)
[2022-03-21] MEDS: HEPARIN SODIUM,PORCINE/PF 5,000 UNIT/0.5 ML SYRINGE SQ SCH ×3 (00:07→16:09)
[2022-03-21 07:00] LABS: Glucose,Whole Blood 168 mg/dL (70-110)
[2022-03-21 07:41] LABS: HCT 30.4 % (39.0-53.0); HGB 9.6 gm/dL (13.0-17.5); MCH 30.7 pg (25.0-35.0); MCHC 31.7 g/dL (31.0-37.0); MCV 97.1 fL (80.0-100.0); Mean Platelet Volume 8.4; Platelet Count 256 k/uL (150-450); RBC 3.13 m/uL (4.30-5.90); RDW 15.7 % (11.5-15.5); WBC 7.2 k/uL (3.8-10.6)
[2022-03-21] MEDS: ASPIRIN 81 MG PO SCH (08:00)
[2022-03-21] MEDS: CALCIUM ACETATE 667 MG TAB PO SCH ×3 (08:00→21:12)
[2022-03-21] MEDS: PANTOPRAZOLE 40 MG TABLET PO SCH ×2 (08:00→21:12)
[2022-03-21] MEDS: FOLIC ACID-VIT B COMPLEX-VIT C 1 CAP PO SCH (08:01)
[2022-03-21] MEDS: INSULIN ASPART (NovoLOG) 100 UNIT/ML VIAL SQ SCH ×4 (08:06→21:19)
[2022-03-21] MEDS: carvediloL 3.125 MG TAB PO SCH ×2 (08:06→21:19)
[2022-03-21] MEDS: hydrALAZINE HCL 25 MG TAB PO SCH ×3 (08:06→21:19)
[2022-03-21] MEDS: amLODIPine 10 MG TAB PO SCH (08:06)
[2022-03-21 08:09] LABS: ALT 12 U/L (4-49); AST 16 U/L (17-59); African American GFR (CKD) 11 (>60 ml/min/1.73 sqM); Albumin 3.1 g/dL (3.5-5.0); Alkaline Phosphatase 74 U/L (38-126); Anion Gap 7 mmol/L; Blood Urea Nitrogen 35 mg/dL (9-20); Calcium 8.4 mg/dL (8.4-10.2); Carbon Dioxide 28 mmol/L (22-30); Chloride 100 mmol/L (98-107); Glucose 172 mg/dL (74-99); Non-African American GFR(CKD) 10 (>60 ml/min/1.73 sqM); Potassium 4.6 mmol/L (3.5-5.1); Sodium 135 mmol/L (137-145); Total Bilirubin 0.4 mg/dL (0.2-1.3); Total Protein 6.1 g/dL (6.3-8.2)
[2022-03-21 08:34] LABS: Partial Thromboplastin Time 27.6 sec (22.0-30.0); Prothrombin Time 10.3 sec (9.0-12.0)
--- NOTE | 2022-03-21 09:27 | XR ---
EXAMINATION TYPE: XR chest 1V portable DATE OF EXAM: 03/21/2022 COMPARISON: 03/20/2022 HISTORY: Pleural effusion TECHNIQUE: Single frontal view of the chest is obtained. FINDINGS: The heart is enlarged and there are median sternotomy postsurgical changes. Right-sided pl eural pigtail drainage catheter with stable hydropneumothorax. Dense right to mid lower lung opacitie s on the basis of calcified pleural plaque, pleural thickening, and some element of airspace disease. IMPRESSION: No significant interval change.
[2022-03-21 11:18] LABS: Glucose,Whole Blood 138 mg/dL (70-110)
--- NOTE | 2022-03-21 12:09 | P.PN ---
Subjective Patient is seen in follow-up for end-stage renal disease. He is maintained on hemodialysis on Thursday schedule. No problems with dialysis yesterday. Denies chest pain or shortness of breath. On room air. Vital signs are stable. General: No acute distress. HEENT: Head exam is unremarkable. LUNGS: Breath sounds decreased. Chest tube noted. HEART: Rate and Rhythm are regular. ABDOMEN: Soft, no distention. EXTREMITITES: No edema. Objective - Vital Signs Vital signs: Vital Signs Temp 98.3 F 03/21/22 07:00 Pulse 71 03/21/22 07:00 Resp 18 03/21/22 07:00 BP 159/56 03/21/22 07:00 Pulse Ox 97 03/21/22 07:00 FiO2 21 03/19/22 11:12 Intake & Output 03/20/22 03/21/22 03/21/22 18:59 06:59 18:59 Intake Total 1760 300 Output Total 2900 75 Balance -1140 225 Intake: Oral 960 300 Hemodialysis 800 Output: Chest Tube Drainage 100 75 Thora-Vent 100 75 Hemodialysis 2800 Other: Voiding Method Toilet Toilet # Voids 1 - Labs CBC & Chem 7: 03/21/22 07:03 03/21/22 07:03 Labs: Abnormal Lab Results - Last 24 Hours (Table) 03/20/22 03/20/22 03/21/22 Range/Units 17:03 20:01 06:59 RBC (4.30-5.90) m/uL Hgb (13.0-17.5) gm/dL Hct (39.0-53.0) % RDW (11.5-15.5) % Sodium (137-145) mmol/L BUN (9-20) mg/dL Creatinine (0.66-1.25) mg/dL Glucose (74-99) mg/dL POC Glucose (mg/dL) 223 H 167 H 168 H (70-110) mg/dL AST (17-59) U/L Total Protein (6.3-8.2) g/dL Albumin (3.5-5.0) g/dL 03/21/22 03/21/22 03/21/22 Range/Units 07:03 07:03 11:17 RBC 3.13 L (4.30-5.90) m/uL Hgb 9.6 L (13.0-17.5) gm/dL Hct 30.4 L (39.0-53.0) % RDW 15.7 H (11.5-15.5) % Sodium 135 L (137-145) mmol/L BUN 35 H (9-20) mg/dL Creatinine 5.43 H (0.66-1.25) mg/dL Glucose 172 H (74-99) mg/dL POC Glucose (mg/dL) 138 H (70-110) mg/dL AST 16 L (17-59) U/L Total Protein 6.1 L (6.3-8.2) g/dL Albumin 3.1 L (3.5-5.0) g/dL Assessment and Plan Plan: Assessment: 1. End-stage renal disease maintained on hemodialysis on Thursday schedule. 2. Bilateral pleural effusions. Has chest tube. Pleural fluid cytology negative. Thoracoscopy and Pleurx catheter placement scheduled for today. 3. Acute on chronic diastolic CHF and [id number] mitral regurgitation. 4. Chronic kidney disease mineral bone disease maintained on PhosLo. 5. Hypertension with chronic kidney disease. Stable. 6. Anemia of chronic kidney disease. High ferritin noted. On Aranesp. Plan: Currently hemodialysis tomorrow. Maintain torsemide.
[2022-03-21] MEDS ORDERED: VANCOMYCIN 1,000 MG in SODIUM CHLORIDE 0.9% 250 ML IVPB ONE ×2 (13:00→18:30)
--- NOTE | 2022-03-21 14:06 | P.PN ---
Subjective Progress Note Date: 03/21/22 Principal diagnosis: Right-sided loculated pleural effusion 72-year-old male, seen in the emergency room, room #27. This is a patient who was seen in the emergency department initially on March 10. He came into the emergency room with complaints of shortness of breath, cough, and chest pain. The patient does have a history of end-stage renal disease, typically on Thursday, , and Thursday hemodialysis. He also has history of diabetes, hypertension, CAD, and previous bypass grafting. Over the last 10-14 days, the patient admits to increasing shortness of breath, and cough. He also has worsening orthopnea. The patient had a chest x-ray which revealed a pleural effusion, which was noted to be bilaterally, worse on the right side. It also appears to be loculated. The patient is typically not on home oxygen, but his saturations initially in the ER, were in the high 80s. He was placed on 2 L. He is not on any IV fluids. White count 9.6, hemoglobin 10.2, hematocrit 30.9, and platelet count 263,000. Sodium 135, potassium I.0, chloride 96, CO2 29, BUN 27, and creatinine 5.79. N-terminal proBNP was 72,500. Chest x-ray showed bilateral pleural effusion, right greater than left. The right-sided effusion is certainly loculated. The computed tomography scan showed bilateral pleural effusions, larger on the right side. There was no evidence of pulmonary embolism. There was calcified pleural plaque noted. The patient is seen today 03/12/2022 in follow-up on the selective care unit. He is currently sitting up in a chair at the bedside. Awake and alert in no acute distress. Maintaining good O2 saturations in the 90s on room air. No worsening shortness of breath, cough or congestion. No IV fluids. He did receive hemodialysis yesterday with 2.4 L removed. Chest x-ray from today is pending. White count 7.1. Hemoglobin 9.6. Platelets 238. Sodium 131. Potassium 4.6. BUN is 24. Creatinine 5.11. Glucose 201. He remains on oral diuretics. The patient is seen today 03/13/2022 in follow-up on the selective care unit. Currently resting comfortably in bed. Awake and alert in no acute distress. He is maintaining O2 saturations in the 90s on room air. No IV fluids currently. Chest x-ray continues to show right-sided loculated pleural effusion. Interventional radiologist for thoracentesis once his Plavix is held for 5 days. Otherwise the patient is doing well. No complaints. Echocardiogram reveals preserved left ventricular systolic function with ejection fraction of 50-55%. Blood glucose 147. Troponin negative 1. He remains on oral diuretics. Heparin for DVT prophylaxis. He should be receiving hemodialysis today. I'm evaluating this patient today 03/14/2022 in follow-up on a general medical floor. Patient is currently sitting up in bed, on room air, in no acute distress. At this time, patient was awaiting thoracentesis by IR. Apparently, later this afternoon, interventional radiology seen the patient for the thoracentesis, and decided to inserted a right pigtail catheter due to the effusion being quite loculated. Post insertion chest x-ray showed no pneumothorax with a significant reduction in the right-sided pleural effusion and consolidation. Pleural fluid cultures and cytology were ordered. He remains afebrile. No new labs to review today. Patient continues to receive Lasix daily . This is a hemodialysis patient. Vital signs remain stable. Progress note dated 03/15/2022. The patient is seen today in room 526. A pigtail catheter placed on the right side, on March 14. The patient had 600 mL out initially. He seems relatively comfortable. He sitting at the bedside. He is on room air. No IV fluids. The fluid from the right pleural space appears to be bloody. Awaiting chemistry on the fluid. White count 7.97, hemoglobin 10, hematocrit 32, and platelet count normal. Sodium 135, Potassium 4.7, chlorides 95, CO2 27, BUN 40, creatinine 6.8. Right pleural fluid analysis is currently pending. No chest x-ray today. Progress note dated 03/16/2022. The patient is seen in room 526. He is on room air. No IV fluids. The pleural effusion is an exudate based on the LDH and protein. The patient will have TPA instilled today. We have alerted cardiothoracic surgery. The patient is resting comfortably. No acute distress. Labs today include a white count of 6.94, hemoglobin 9.7, hematocrit 31, and platelet count 273,000. Sodium 133, potassium 4.5, chlorides 94, CO2 30, BUN 26, creatinine 5. No chest x-ray was done, but one is ordered. Microbiology on the pleural fluid is thus far negative. On today's evaluation of 03/17/2022, the patient is being seen for a follow-up. He currently is in the hospital for a episode of shortness of breath and hyp oxemic respiratory failure. The patient also had a loculated right-sided pleural effusion the patient had a pigtail catheter inserted on 03/14/2022. He has other comorbidities including end-stage renal disease on hemodialysis, coronary artery disease with previous bypass surgery, diabetes and hypertension and he is a chronic smoker and has hyperlipidemia. The fluid from the pigtail catheter was an exudate with an LDH of 467 and protein of 3.5 g. The cultures have been negative thus far. Note that the patient also had thrombolytics infused thrombolytics infused with adequate drainage. Noted the pigtail catheter was inserted by interventional radiology. He shortness of breath is improved. The pigtail catheter was removed and a chest x-ray from today. Upon review of CAT scan of the chest, there is pleural surface calcification and plaquing could be related to asbestosis and the patient has been exposed to asbestos in the past. Pleural fluid cytology is either not send orders pending On 03/18/2022, the patient is being seen for a follow-up. As mentioned yesterday, the patient's pigtail catheter was accidentally removed and based on that, a CAT scan of the chest was done and showed decrease in the size of the right-sided pleural effusion and there was a moderate-sized right-sided hydropneumothorax. There was minimal amount of subcu in his emphysema and decreased left-sided pleural effusion. At the same time, there was bilateral pleural/subpleural calcification right more than left. Based on that, the patient was given another pigtail catheter. Following that, the patient was also given thrombolytics. This morning, the patient has approximately 700 mL of bloody output. As mentioned, the patient has a loculated hydropneumothorax on the right side on today's chest x-ray. The patient is also going to undergo hemodialysis. Patient is currently on oxygen and he is on room air oxygen. The patient is awaiting pleural fluid cytology was sent yesterday for further evaluation. There is a high concern for malignancy in this patient. As mentioned, the pleural surfaces Extensively calcified and it may include some pleural plaquing. On 03/19/2022, seeing the patient for a follow-up. As mentioned, the patient has a trapped lung. 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 Adequate discussion with the patient's daughter over the phone. I was made aware that the patient started having recurrent pleural effusions bilateral following his cardiac surgery. The patient has undergone several thoracenteses on the left and 1 thoracenteses on the right and this was done by her cardiothoracic surgeon at [facility]. Based on those results, there was no evidence of any malignancy. As mentioned, the patient presented to us with an enlarging located right-sided pleural effusion. The pigtail catheter was inserted and the patient was given thrombolytics. The pleural fluid cytology is negative and there is some residual volume loss and hydropneumothorax on the right in the right lung is essentially trapped in the pleural surface is quite irregular, thickened, scar and has some plaques. The output from the pigtail catheter over the past 24 hours has been in the order of 750 mL and output is bloody. Based on that, adequate discussion with the patient's daughter. We are also discussing treatment options including the possibility of a video-assisted thoracoscopy and possibility of a Pleurx catheter, discharge. 03/20/2022, the patient is being seen for a follow-up. The pigtail catheter in place and output has been in the order of 250 mL over the past 24 hours. As such, this is a drop in the output from the right-sided pigtail catheter. Meanwhile, a repeat chest x-ray was done and the patient continues to have similar findings with a loculated pneumothorax in the right lung base and there is a trapped lung with pleural thickening. There may be some minimal increase in size of the right-sided hydropneumothorax. Otherwise, no significant interval change. As mentioned, the patient has had multiple thoracenteses in the past. There is a concern for mesothelioma. I was able to obtain results of the previous pleural fluid cytology from [facility] indicating no malignancy. The pleural fluid cytology from our hospital was also negative. I'm reevaluating this patient today 03/21/2022 in follow-up on the general medical floor. He is scheduled for VATS procedure with pleural biopsies and Pleurx catheter insertion today. he continues to have a right pigtail catheter for a persistent right loculated hydropneumothorax. he has had approximately 175 mL output of serosangenous fluid in the last 24 hours. patient's chest x-ray from today shows no significant interval change, with a stable hydropneumothorax, calcified pleural plaque, and pleural thickening.patient's CBC from today is stable with a WBC count is 7.2, hemoglobin of 9.6, hematocrit 30.4, platelets 256,000. Patient's BMP is also stable with a sodium 135, potassium 4.6, chloride 100, serum CO2 28, BUN 35, creatinine 5.43, glucose 172. patient did receive hemodialysis yesterday and is maintained on a Thursday, , Thursday schedule. patient's vital signs remain stable. Objective - Vital Signs Vital signs: Vital Signs Temp 97.6 F 03/21/22 13:05 Pulse 64 03/21/22 13:05 Resp 18 03/21/22 13:05 BP 143/67 03/21/22 13:05 Pulse Ox 95 03/21/22 13:05 FiO2 21 03/19/22 11:12 Intake & Output 03/20/22 03/21/22 03/21/22 18:59 06:59 18:59 Intake Total 1760 300 Output Total 2900 75 Balance -1140 225 Intake: Oral 960 300 Hemodialysis 800 Output: Chest Tube Drainage 100 75 Thora-Vent 100 75 Hemodialysis 2800 Other: Voiding Method Toilet Toilet # Voids 1 - Exam GENERAL EXAM: Alert, very pleasant 72-year-old male, on room air, resting in bed, comfortable in no apparent distress. HEAD: Normocephalic. EYES: Normal reaction of pupils, equal size. NOSE: Clear with pink turbinates. THROAT: No erythema or exudates. NECK: No masses, no JVD. CHEST: No chest wall deformity. right pigtail catheter in place. LUNGS: Equal air entry with crackles in the bilateral bases right greater than left. CVS: S1 and S2 normal with no audible murmur, regular rhythm. ABDOMEN: No hepatosplenomegaly, normal bowel sounds, no guarding or rigidity. SPINE: No scoliosis or deformity SKIN: No rashes CENTRAL NERVOUS SYSTEM: No focal deficits, tone is normal in all 4 extremities. EXTREMITIES: There is no peripheral edema. No clubbing, no cyanosis. Peripheral pulses are intact. - Labs CBC & Chem 7: 03/21/22 07:03 03/21/22 07:03 Labs: Abnormal Lab Results - Last 24 Hours (Table) 03/20/22 03/20/22 03/21/22 Range/Units 17:03 20:01 06:59 RBC (4.30-5.90) m/uL Hgb (13.0-17.5) gm/dL Hct (39.0-53.0) % RDW (11.5-15.5) % Sodium (137-145) mmol/L BUN (9-20) mg/dL Creatinine (0.66-1.25) mg/dL Glucose (74-99) mg/dL POC Glucose (mg/dL) 223 H 167 H 168 H (70-110) mg/dL AST (17-59) U/L Total Protein (6.3-8.2) g/dL Albumin (3.5-5.0) g/dL 03/21/22 03/21/22 03/21/22 Range/Units 07:03 07:03 11:17 RBC 3.13 L (4.30-5.90) m/uL Hgb 9.6 L (13.0-17.5) gm/dL Hct 30.4 L (39.0-53.0) % RDW 15.7 H (11.5-15.5) % Sodium 135 L (137-145) mmol/L BUN 35 H (9-20) mg/dL Creatinine 5.43 H (0.66-1.25) mg/dL Glucose 172 H (74-99) mg/dL POC Glucose (mg/dL) 138 H (70-110) mg/dL AST 16 L (17-59) U/L Total Protein 6.1 L (6.3-8.2) g/dL Albumin 3.1 L (3.5-5.0) g/dL Assessment and Plan Assessment: Acute hypoxic respiratory failure, likely related to bilateral right greater than left effusions. The right-sided effusion appears to be loculated. Interventional radiology did insert a right pigtail catheter today. Pleural fluid cultures and cytology were ordered. Post insertion chest x-ray reveals no pneumothorax and a reduction in the right-sided pleural effusion. the patient is scheduled for VATS procedure with Pleurx catheter insertion on 03/21/2022. Acute fluid overload, secondary to end-stage renal disease. End-stage renal disease, currently on 3 times a week hemodialysis. Thursday schedule History of CAD with previous bypass grafting. History of diabetes mellitus. History of hypertension. Prior history of tobacco use. History of hyperlipidemia. Plan: The patient is scheduled for VATS procedure with pleural biopsies and Pleurx catheter insertion today Chest x-ray, medications and labs reviewed right pigtail catheter remains in place, and output has improved Hemodialysis per nephrology on room air We'll continue to follow I have personally seen and examined the patient, performed the documentation and the assessment and plan as written. Number of minutes spent on the visit: 10. Time with Patient: Less than 30
[2022-03-21] MEDS: TORSEMIDE 20 MG TAB PO SCH (16:07)
[2022-03-21 16:59] LABS: Glucose,Whole Blood 156 mg/dL (70-110)
[2022-03-21] MEDS ORDERED: fentaNYL (PF) 50 MCG/1 ML VIAL IVP ONE (17:05)
[2022-03-21] MEDS ORDERED: MIDAZOLAM 2 MG/2 ML VIAL IVP ONE ×2 (17:05→17:22)
[2022-03-21] MEDS ORDERED: SODIUM CHLORIDE 0.9% 1,000 ML IV ONE (17:21)
[2022-03-21] MEDS ORDERED: NEOSTIGMINE 1 MG/ML 10 ML VIAL ONE (17:54)
[2022-03-21] MEDS ORDERED: LIDOCAINE 2% INJ 20 MG/ML (2 ML VIAL) ONE (17:54)
[2022-03-21] MEDS ORDERED: GLYCOPYRROLATE 0.2 MG/ML 2 ML VIAL ONE (17:54)
[2022-03-21] MEDS ORDERED: SUCCINYLCHOLINE CHLORIDE 200 MG/10 ML VIAL IV ONE (17:54)
[2022-03-21] MEDS ORDERED: ONDANSETRON 4 MG/2 ML VIAL ONE (17:54)
[2022-03-21] MEDS ORDERED: fentaNYL (PF) 50 MCG/ML 2 ML AMP ONE (17:54)
[2022-03-21] MEDS ORDERED: PROPOFOL 10 MG/ML 20 ML VIAL IV ONE (17:54)
[2022-03-21] MEDS ORDERED: ROCURONIUM 10 MG/ML (5 ML VIAL) IV ONE (17:54)
[2022-03-21] MEDS ORDERED: ROPIVACAINE 5 MG/ML 30 ML VIAL ONE (17:54)
--- NOTE | 2022-03-21 19:15 | P.OP ---
Date of Procedure: 03/21/22 Preoperative Diagnosis: Recurrent right sided pleural effusion R pleural thickening with calcification Postoperative Diagnosis: Same Procedure(s) Performed: 1. Bronchoscopy 2. Right sided video assisted thorascopy with pleural biopsy 3. Insertion of pleurX catheter - right side under flouroscopic guidance Implants: PleurX Anesthesia: GETA Surgeon: Maury Wilkinson Estimated Blood Loss (ml): 25 Pathology: other (right pleura for permanent and right pleural effusion fluid for cytology) Condition: stable Disposition: PACU Indications for Procedure: This patient is a 72 year-old male with a significant history of exposure to asbestos who underwent CABG x 6 last year at an outside hospital who developed bilateral pleural effusions post-operatively. He underwent thoracentesis bilaterally and had recurrence on the right. Cytology was suggestive of mesoth elioma but was inconclusive. CT scan showed pleural thickening with calcification. The family really wanted a formal diagnosis. I offered right vats with pleural biopsy and pleurX catheter placement. The patient and his daughter were in agreement. Operative Findings: Right pleural rind and thickening suggestive of chronic inflammation and possible neoplasm. Description of Procedure: The patient underwent arterial line placement in the pre-operative suite. He was brought back to the operating room and placed in the supine position. He was in tubated with a double lumen tube and bronchoscopy was performed to confirm placement of the tube and for diagnostic purposes. The entire tracheo-bronchial tree appeared normal without lesions. There was minimal sections. The patient was placed in the left lateral decibitus position and his right chest was prepped and draped in the usual sterile fashion. Antibiotics were given and the right lung was isolated. I made a 3cm incision in the 4th intercostal space anterior axillary line. I gained entry into the chest under vision. There was intense thickening of the pleura here. The pleura appeared white and matted. After inserting the thorascope it was hard to visualize the right chest cavity secondary to thickened pleura and adhesions. I was able to biopsy some of the pleura under direct vision. I then turned my attention inferior. I inserted the needle for the pleurX catheter into the chest in approximately the 9th intercostal space with good return of fluid and air. I inserted the guidewire. I checked the wire under fluoroscopy. I made a separate incision anteriorly and tunneled the catheter from anterior to posterior. I then placed the peel away sheath over the wire and threaded the catheter into the chest. There was 350cc return of serosanguinous fluid. I anchored the catheter to the skin using silk suture and closed the posterior incision with monocryl and glue. The uniportal site was closed in layers and glue. The patient was awaken from anesthesia and extubated.
--- NOTE | 2022-03-21 20:06 | XR ---
EXAMINATION TYPE: XR chest 1V portable DATE OF EXAM: 03/21/2022 7:54 PM COMPARISON: Chest radiographs from 03/21/2022 TECHNIQUE: XR chest 1V portable Portable AP radiograph of the chest. CLINICAL INDICATION:Male, 72 years old with history of check right pleurx cath placement; FINDINGS: Lungs/Pleura: Left basilar airspace opacities. No evidence of left pneumothorax, pleural effusion. Mi ld blunting of the right costophrenic angle Pulmonary vascularity: Unremarkable. Heart/mediastinum: Cardiomediastinal silhouette is unremarkable. Musculoskeletal: No acute osseous pathology. Midline sternotomy wires are noted. Other findings: None Lines/Tubes: Right thoracotomy tube with small pneumothorax remaining present. IMPRESSION: 1. Right thoracotomy tube with small pneumothorax. A component of pleural effusion is felt to be pre sent. 2. Left basilar airspace opacities correlate for developing pneumonia.
[2022-03-21] MEDS ORDERED: HYDROmorphone 0.5 MG/0.5 ML SYRINGE IVP ONE (20:15)
--- NOTE | 2022-03-21 20:29 | FL ---
Intraoperative/procedural fluoroscopic services were provided. Total fluoroscopy time is 1 second sec onds with a total of 1 submitted images to PACS. Please see the operative/procedural note for further details.
--- NOTE | 2022-03-21 20:45 | P.ANPRN ---
Procedure Note - Anesthesia - Nerve Block Performed Right Erector Spinae Single Time Out Performed: Yes ([id number]) Date of Procedure: 03/21/22 Procedure Start Time: 17:05 Procedure Stop Time: 17:12 Location of Patient: PreOp Indication: Acute Post-Operative Pain, Requested by Surgeon Specifically requested for management of pain by DrAlexa: Maury Wilkinson Sedation Type: Sedate with meaningful contact maintained Preparation: Sterile Prep Position: Sitting Catheter: None Needle Types: Pajunk Needle Gauge: 21 Ultrasound used to visualize needle placement: Yes Ultrasound used to observe medication spread: Yes Injectate: 0.5% Ropivacaine (see comment for volume) (30cc) Blood Aspirated: No Pain Paresthesia on Injection Noted: No Resistance on Injection: Normal Image Stored and Saved: Yes Events: Uneventful and Well Tolerated
--- NOTE | 2022-03-21 20:46 | P.ANPRN ---
Procedure Note - Anesthesia - Invasive Line Right Arterial Line Time Out Performed: Yes (1722) Date of Procedure: 03/21/22 Time of Procedure: 17:23 Location of Patient: PreOp Preparation: Sterile Prep, Sterile Dressing Arterial Line Location: Radial (right) Ultrasound Used: No Purpose - Visualization and Identification of Vasculature: No Image Stored and Saved: No Narrative: Central line placement per sterile protocol utilized. sterile protocol
[2022-03-21] MEDS: ESCITALOPRAM 20 MG TAB PO SCH (21:19)
[2022-03-21] MEDS: traMADol 50 MG TAB PO PRN (21:19)
[2022-03-21] MEDS: ATORVASTATIN 40 MG TAB PO SCH (21:19)
[2022-03-22] MEDS: HEPARIN SODIUM,PORCINE/PF 5,000 UNIT/0.5 ML SYRINGE SQ SCH ×3 (00:19→16:54)
[2022-03-22 06:00] LABS: Glucose,Whole Blood 243 mg/dL (70-110)
[2022-03-22] MEDS: PANTOPRAZOLE 40 MG TABLET PO SCH ×2 (06:04→16:54)
[2022-03-22] MEDS: CALCIUM ACETATE 667 MG TAB PO SCH ×3 (06:04→16:54)
[2022-03-22] MEDS: carvediloL 3.125 MG TAB PO SCH ×2 (06:04→16:54)
[2022-03-22] MEDS: traMADol 50 MG TAB PO PRN ×2 (06:05→16:55)
[2022-03-22] MEDS: INSULIN ASPART (NovoLOG) 100 UNIT/ML VIAL SQ SCH ×4 (06:05→20:31)
--- NOTE | 2022-03-22 06:13 | PN ---
PROGRESS NOTE DATE OF SERVICE: 03/20/2022 HISTORY OF PRESENT ILLNESS: A 72-year-old white male, pleural effusion, COPD, large amounts of bloody fluid coming out of chest tube, status post thoracotomy. Tomorrow he is going to get a bronchoscopy to look into his lungs as well as possible pleurodesis done. He is breathing better than when he came in, he says. PHYSICAL EXAMINATION: VITAL SIGNS: Reviewed. CARDIOVASCULAR: S1, S2. LUNGS: Scattered rhonchi and wheeze. He has chest tube in place. ABDOMEN: Soft. EXTREMITIES: No edema. ASSESSMENT: Possible mesothelioma. Abnormal calcifications in the chest. Large amount of marked hemorrhagic fluid coming out of his chest. As mentioned, pleurodesis and bronchoscopy tomorrow to rule out any significant findings like cancer. Prognosis guarded. Please see further orders. MMODL / IJN: [id number] /
[2022-03-22] MEDS ORDERED: HYDROmorphone 0.5 MG/0.5 ML SYRINGE IVP PRN (06:51)
--- NOTE | 2022-03-22 06:58 | PN ---
PROGRESS NOTE SUBJECTIVE: A 72-year-old white male, remains on Protonix, subcu heparin, Lexapro for depression, Coreg for dyslipidemia, PhosLo for end-stage renal disease. Continues with dialysis. Also has large amount of bloody pleural fluid. Procalamine 2. Hemoglobin is 9.6, white count 7.2. Sodium is 135, potassium 4.6. OBJECTIVE: CARDIOVASCULAR: S1, S2. LUNGS: Scattered rhonchi. Decreased breath sounds x4. LABORATORY DATA: BUN 35, creatinine 5.43. Sugars in mid 100. ASSESSMENT/PLAN: He had a chest tube insertion. Had bronchoscopy with right-sided video-assisted thoracotomy and pleural biopsy, insertion of PleurX catheter, right pleural effusion. Fluid was sent for cytology. Cytology was suggestive of but was inconclusive wait for the cytology. Continue to monitor thoracotomy drainage and wean as tolerated. Prognosis is guarded. MMODL / IJN: [id number] /
--- NOTE | 2022-03-22 07:19 | XR ---
EXAMINATION TYPE: XR chest 1V portable DATE OF EXAM: 03/22/2022 7:13 AM COMPARISON: Chest radiograph from one day prior. TECHNIQUE: XR chest 1V portable Portable AP radiograph of the chest. CLINICAL INDICATION:Male, 72 years old with history of Pleural Catheter placement; FINDINGS: Lungs/Pleura: Left basilar airspace opacities. No evidence of left pneumothorax, pleural effusion. Mi ld blunting of the right costophrenic angle. Pulmonary vascularity: Unremarkable. Heart/mediastinum: Cardiomediastinal silhouette is unremarkable. Musculoskeletal: No acute osseous pathology. Midline sternotomy wires are noted. Other findings: Subcutaneous emphysema scattered along the right thorax. Lines/Tubes: Right thoracotomy tube with small pneumothorax remaining present. IMPRESSION: 1. Right thoracotomy tube with small pneumothorax. Small right pleural effusion is also present. 2. Left basilar airspace opacities correlate for developing pneumonia.
[2022-03-22] MEDS: ASPIRIN 81 MG PO SCH (08:15)
[2022-03-22] MEDS: TORSEMIDE 20 MG TAB PO SCH (08:16)
[2022-03-22] MEDS: FOLIC ACID-VIT B COMPLEX-VIT C 1 CAP PO SCH (08:16)
[2022-03-22] MEDS ORDERED: BENZOCAINE/MENTHOL LOZENG 1 EACH LOZENGE MUCOUS MEM PRN (10:09)
[2022-03-22 11:54] LABS: Glucose,Whole Blood 173 mg/dL (70-110)
--- NOTE | 2022-03-22 12:09 | P.PN ---
Subjective Progress Note Date: 03/22/22 Principal diagnosis: Acute hypoxic history failure secondary to loculated left-sided pleural effusion 03/20/2022, the patient is being seen for a follow-up. The pigtail catheter in place and output has been in the order of 250 mL over the past 24 hours. As such, this is a drop in the output from the right-sided pigtail catheter. Meanwhile, a repeat chest x-ray was done and the patient continues to have similar findings with a loculated pneumothorax in the right lung base and there is a trapped lung with pleural thickening. There may be some minimal increase in size of the right-sided hydropneumothorax. Otherwise, no significant interval change. As mentioned, the patient has had multiple thoracenteses in the past. There is a concern for mesothelioma. I was able to obtain results of the previous pleural fluid cytology from [facility] indicating no lawrence gnancy. The pleural fluid cytology from our hospital was also negative. I'm reevaluating this patient today 03/21/2022 in follow-up on the general medical floor. He is scheduled for VATS procedure with pleural biopsies and Pleurx catheter insertion today. he continues to have a right pigtail catheter for a persistent right loculated hydropneumothorax. he has had approximately 175 mL output of serosangenous fluid in the last 24 hours. patient's chest x-ray from today shows no significant interval change, with a stable hydropneumothorax, calcified pleural plaque, and pleural thickening.patient's CBC from today is stable with a WBC count is 7.2, hemoglobin of 9.6, hematocrit 30.4, platelets 256,000. Patient's BMP is also stable with a sodium 135, potassium 4.6, chloride 100, serum CO2 28, BUN 35, creatinine 5.43, glucose 172. patient did receive hemodialysis yesterday and is maintained on a Thursday, , Thursday schedule. patient's vital signs remain stable. Reevaluated today on 03/22/22, patient seems to be doing well today, patient underwent Pleurx catheter placement yesterday by thoracic surgery. He also underwent a bronchoscopy, right sided video-assisted thoracoscopic pleural biopsy and insertion of a Pleurx catheter. Patient is doing well, relatively asymptomatic today. He is now on room air, O2 sats is 99%. And he is undergoing hemodialysis Objective - Vital Signs Vital signs: Vital Signs Temp 97.8 F 03/22/22 10:49 Pulse 62 03/22/22 08:00 Resp 14 03/22/22 08:00 BP 171/72 03/22/22 08:00 Pulse Ox 99 03/22/22 08:00 FiO2 21 03/19/22 11:12 Intake & Output 03/21/22 03/22/22 03/22/22 18:59 06:59 18:59 Intake Total 350 500 240 Output Total 10 2500 Balance 350 490 -2260 Intake: IV 350 500 Oral 240 Output: Hemodialysis 2500 Estimated Blood Loss 10 Other: Voiding Method Toilet - Exam GENERAL EXAM: Alert, in no distress on room air. HEAD: Normocephalic. HEENT: PERRLA, EOMI, nonicteric, no masses no JVD. CHEST: No chest wall deformity. right pigtail catheter in place. LUNGS: Diminished breath sounds at the bases, right-sided Pleurx catheter is noted. CVS: S1 and S2 normal with no audible murmur, regular rhythm. ABDOMEN: No hepatosplenomegaly, normal bowel sounds, no guarding or rigidity. SKIN: No rashes CENTRAL NERVOUS SYSTEM: Alert and oriented 3 no gross focal deficits. EXTREMITIES: No clubbing edema or cyanosis. - Labs CBC & Chem 7: 03/21/22 07:03 03/21/22 07:03 Labs: Abnormal Lab Results - Last 24 Hours (Table) 03/21/22 03/22/22 03/22/22 Range/Units 16:53 05:59 11:35 POC Glucose (mg/dL) 156 H 243 H 173 H (70-110) mg/dL Assessment and Plan Assessment: Impression: Acute hypoxic respiratory failure secondary to bilateral pleural effusions, secondary to end-stage renal disease, on hemodialysis. Status post VATS pleural biopsy and placement of a Pleurx catheter on 03/21/22, History of coronary artery disease and previous CABG End-stage renal disease, on hemodialysis Type 2 diabetes. Benign essential hypertension. Dyslipidemia. Ex-smoker. Recommendation: Continue present supportive care measures Continue hemodialysis Awaiting the results of the pleural biopsy Continue with the Pleurx catheter draining as needed We will continue to Time with Patient: Less than 30
--- NOTE | 2022-03-22 12:10 | P.PN ---
Subjective Progress Note Date: 03/22/22 Principal diagnosis: Bilateral pleural effusions, acute onset of shortness of breath, acute diastolic heart failure. Past medical history significant for history of end-stage renal disease on hemodialysis, history of 2 previous pleural effusions, status post thoracentesis 21 on the left and one on the right, coronary artery disease status post 6 vessel CABG as well as PCI, hypertension, hyperlipidemia, diabetes mellitus, previous tobacco dependence. POD #3 (second)right-sided pigtail catheter placement by interventional radiology, pigtail catheter was removed yesterday 03/21/2022. POD #1 bronchoscopy, right-sided video-assisted thoracoscopic with pleural biopsy, insertion of Pleurx catheter, right-sided under fluoroscopic guidance The patient was seen and examined at his bedside on the cardiac stepdown unit today 03/22/2022. Currently sitting up in bed, is awake, alert, oriented 3 and is in no acute apparent distress. Denies any complaints of pain or shortness of breath at this time. He does report that he does have quite an appetite as he has not eaten in around 24 hours due to his procedure yesterday. Oxygen saturation are 98% on 2 L nasal cannula, and he is achieving 1500 mL on his incentive spirometry. Remote telemetry showing normal sinus rhythm with first- degree heart block heart rate 71 BPM. He remains hemodynamically stable and is currently on no inotropic or pressor support. Pleurx catheter dressing is clean, dry and intact. Pleurx catheter teaching will be completed with the patient and his daughter Vanesa. Objective - Vital Signs Vital signs: Vital Signs Temp 97.8 F 03/22/22 10:49 Pulse 62 03/22/22 08:00 Resp 14 03/22/22 08:00 BP 171/72 03/22/22 08:00 Pulse Ox 99 03/22/22 08:00 FiO2 21 03/19/22 11:12 Intake & Output 03/21/22 03/22/22 03/22/22 18:59 06:59 18:59 Intake Total 350 500 Output Total 10 2500 Balance 350 490 -2500 Intake: IV 350 500 Output: Hemodialysis 2500 Estimated Blood Loss 10 Other: Voiding Method Toilet - Exam CONSTITUTIONAL: Appears comfortable, cooperative, no acute distress. RESPIRATORY: Lungs sounds diminished bilaterally to his bases right greater than left. Respirations are symmetrical and nonlabored. Currently on room air with oxygen saturation 98%. Able to achieve 1500 mL on his incentive sp irometry. Pleurx catheter present. CARDIOVASCULAR: S1, S2 present. Regular rate and rhythm. Palpable peripheral pulses bilaterally. Remote telemetry showing normal sinus rhythm with first- degree heart block, heart rate 71 BPM. GASTROINTESTINAL: Abdomen soft, nontender, nondistended. Active bowel sounds present 4 quadrants. Tolerating diet. GENITOURINARY: Continues to void. INTEGUMENTARY: Skin is warm and dry, no evidence of clubbing or cyanosis is present. Dressing is clean, dry and intact to the right Pleurx catheter. NEUROLOGIC: Cranial nerves II through XII intact. No focal deficits. MUSKULOSKELETAL: Able to move all extremities, strength equal bilaterally, gait normal. PSYCHIATRIC: Oriented to person place and time, appropriate affect, intact judgment and insight. - Allied health notes Allied health notes reviewed: nursing - Labs CBC & Chem 7: 03/21/22 07:03 03/21/22 07:03 Labs: Abnormal Lab Results - Last 24 Hours (Table) 03/21/22 03/21/22 03/22/22 Range/Units 11:17 16:53 05:59 POC Glucose (mg/dL) 138 H 156 H 243 H (70-110) mg/dL - Imaging and Cardiology Chest x-ray: report reviewed, image reviewed Assessment and Plan Assessment: 1. Bilateral pleural effusions, right greater than left, status post right sided pigtail catheter placement by interventional radiology, status post placement of right-sided Pleurx catheter and right-sided VATS with pleural biopsy 3. Acute diastolic heart failure 4. End-stage renal disease, receives hemodialysis treatments 3 times a week 5. History of coronary artery disease status post coronary artery bypass grafting surgery 6 vessels, status post PCI 6. Hypertension 7. Hyperlipidemia 8. Diabetes mellitus 9. Remote history of nicotine dependence, quit smoking 15-20 years ago. Plan: 1. Pleurx catheter care and drainage will be taught to the patient and his melissa Alexis. 2. Encourage incentive spirometry use 10 times every hour while awake. 3. Increase activity as tolerated, out of bed for all meals. Ambulate as tolerated. 4. Will monitor daily chest x-rays. 5. Medical management of other comorbidities per primary care service. 6. Final pathology on the pleural biopsy remains pending. 7. More recommendations to follow based on patient's clinical course. Time with Patient: Greater than 30
--- NOTE | 2022-03-22 14:09 | P.PN ---
Subjective Progress Note Date: 03/22/22 Follow-up for ESRD, seen during dialysis. Tolerating well. Objective - Vital Signs Vital signs: Vital Signs Temp 97.8 F 03/22/22 10:49 Pulse 62 03/22/22 08:00 Resp 14 03/22/22 08:00 BP 171/72 03/22/22 08:00 Pulse Ox 99 03/22/22 08:00 FiO2 21 03/19/22 11:12 Intake & Output 03/21/22 03/22/22 03/22/22 18:59 06:59 18:59 Intake Total 350 500 240 Output Total 10 2500 Balance 350 490 -2260 Intake: IV 350 500 Oral 240 Output: Hemodialysis 2500 Estimated Blood Loss 10 Other: Voiding Method Toilet - Exam No acute distress S1-S2 heard Lungs clear No edema - Labs CBC & Chem 7: 03/21/22 07:03 03/21/22 07:03 Labs: Abnormal Lab Results - Last 24 Hours (Table) 03/21/22 03/22/22 03/22/22 Range/Units 16:53 05:59 11:35 POC Glucose (mg/dL) 156 H 243 H 173 H (70-110) mg/dL Assessment and Plan Assessment: #1 ESRD TTS. #2 bilateral pleural effusion status post Pleurx catheter #3 anemia with chronic kidney disease #4 hypertension with chronic kidney disease #5 volume overload Plan: #1 hemodialysis today as per outpatient schedule. #2 maintain on diuretics.
[2022-03-22] MEDS: amLODIPine 10 MG TAB PO SCH (14:12)
[2022-03-22] MEDS: hydrALAZINE HCL 25 MG TAB PO SCH ×3 (14:12→20:31)
[2022-03-22 16:45] LABS: Glucose,Whole Blood 282 mg/dL (70-110)
--- NOTE | 2022-03-22 18:11 | PN ---
PROGRESS NOTE DATE OF SERVICE: 03/22/2022 SUBJECTIVE: This is a 72-year-old gentleman, who was admitted with acute hypoxic failure and as well as left-sided pleural effusion, has PleurX drainage catheter in. The patient is receiving hemodialysis. No chest pain. No palpitation. No fever. OBJECTIVE: VITAL SIGNS: Pulse is 62, blood pressure 170/70, respirations 14. CHEST: Few scattered rhonchi. ABDOMEN: Soft. NERVOUS SYSTEM: Diffusely weak. LABORATORY DATA: Reviewed. ASSESSMENT: 1. Acute left-sided loculated pleural effusion, status post PleurX drainage. 2. Chronic kidney disease, on hemodialysis. 3. Diabetes mellitus, type 2. 4. Hypertension. 5. Hyperlipidemia. 6. Multiple medical issues. RECOMMENDATIONS: Recommend to continue current medications and symptomatic treatment. Continue the PleurX drainage. Otherwise, continue the hemodialysis. PT and OT evaluation. Prognosis is guarded. Further recommendations to follow. MMODL / IJN: [id number] /
[2022-03-22 20:19] LABS: Glucose,Whole Blood 223 mg/dL (70-110)
[2022-03-22] MEDS: ESCITALOPRAM 20 MG TAB PO SCH (20:31)
[2022-03-22] MEDS: ATORVASTATIN 40 MG TAB PO SCH (20:31)
[2022-03-23] MEDS: traMADol 50 MG TAB PO PRN ×4 (00:03→17:01)
[2022-03-23] MEDS: HEPARIN SODIUM,PORCINE/PF 5,000 UNIT/0.5 ML SYRINGE SQ SCH ×3 (00:04→16:59)
[2022-03-23 06:31] LABS: Glucose,Whole Blood 201 mg/dL (70-110)
[2022-03-23] MEDS: INSULIN ASPART (NovoLOG) 100 UNIT/ML VIAL SQ SCH ×4 (06:59→20:40)
[2022-03-23] MEDS: carvediloL 3.125 MG TAB PO SCH ×2 (06:59→17:00)
[2022-03-23] MEDS: PANTOPRAZOLE 40 MG TABLET PO SCH ×2 (06:59→17:00)
[2022-03-23] MEDS: CALCIUM ACETATE 667 MG TAB PO SCH ×3 (06:59→17:00)
--- NOTE | 2022-03-23 07:22 | XR ---
EXAMINATION TYPE: XR chest 1V portable DATE OF EXAM: 03/23/2022 6:48 AM COMPARISON: Chest radiograph from one day prior. TECHNIQUE: XR chest 1V portable Portable AP radiograph of the chest. CLINICAL INDICATION:Male, 72 years old with history of right pleural effusion; FINDINGS: Lungs/Pleura: Left basilar airspace opacities. No evidence of left pneumothorax, pleural effusion. Mi ld blunting of the right costophrenic angle. Pulmonary vascularity: Unremarkable. Heart/mediastinum: Cardiomediastinal silhouette is enlarged and stable. Musculoskeletal: No acute osseous pathology. Midline sternotomy wires are noted. Other findings: Subcutaneous emphysema scattered along the right thorax. Lines/Tubes: Right thoracotomy tube with small pneumothorax remaining present. IMPRESSION: 1. Right thoracotomy tube with small pneumothorax. Small right pleural effusion is also present. 2. Left basilar airspace opacities are unchanged.
[2022-03-23] MEDS: ASPIRIN 81 MG PO SCH (09:27)
[2022-03-23] MEDS: hydrALAZINE HCL 25 MG TAB PO SCH ×3 (09:27→20:39)
[2022-03-23] MEDS: amLODIPine 10 MG TAB PO SCH (09:27)
[2022-03-23] MEDS: TORSEMIDE 20 MG TAB PO SCH (09:28)
[2022-03-23] MEDS: FOLIC ACID-VIT B COMPLEX-VIT C 1 CAP PO SCH (09:28)
[2022-03-23 09:29] LABS: Basophils % (A) 0 %; Eosinophils # (A) 0.3 k/uL (0-0.7); Eosinophils % (A) 4 %; HCT 30.8 % (39.0-53.0); Lymphocytes # (A) 0.9 k/uL (1.0-4.8); Lymphocytes % (A) 12 %; MCH 31.5 pg (25.0-35.0); MCHC 32.6 g/dL (31.0-37.0); MCV 96.6 fL (80.0-100.0); Mean Platelet Volume 8.3; Monocytes # (A) 0.5 k/uL (0-1.0); Monocytes % (A) 7 %; Neutrophils # (A) 5.5 k/uL (1.3-7.7); Neutrophils % (A) 75 %; Platelet Count 285 k/uL (150-450); RBC 3.19 m/uL (4.30-5.90); RDW 15.7 % (11.5-15.5); WBC 7.4 k/uL (3.8-10.6)
[2022-03-23 09:42] LABS: Calcium 8.7 mg/dL (8.4-10.2); Potassium 4.8 mmol/L (3.5-5.1)
--- NOTE | 2022-03-23 10:05 | P.PN ---
Subjective Progress Note Date: 03/23/22 Principal diagnosis: Bilateral pleural effusions, acute onset of shortness of breath, acute diastolic heart failure. Past medical history significant for history of end-stage renal disease on hemodialysis, history of 2 previous pleural effusions, status post thoracentesis 21 on the left and one on the right, coronary artery disease status post 6 vessel CABG as well as PCI, hypertension, hyperlipidemia, diabetes mellitus, previous tobacco dependence. POD #3 (second)right-sided pigtail catheter placement by interventional radiology, pigtail catheter was removed yesterday 03/21/2022. POD #2 bronchoscopy, right-sided video-assisted thoracoscopic with pleural biopsy, insertion of Pleurx catheter, right-sided under fluoroscopic guidance Patient was seen and examined at his bedside on the cardiac stepdown unit today 03/23/2022. He is awake, alert, oriented 3 and is in no acute apparent distress. The patient's daughter Vanesa is present at his bedside and Pleurx teaching was completed with both the patient and the patient's daughter Vanesa. Vanesa completed the Pleurx catheter drainage with instruction and demonstration. 450 mL of thin serosanguineous drainage was drained with the Pleurx catheter this morning. Oxygen saturations are 97% on room air and the patient is achieving 2001 L on his incentive spirometry with encouragement. Remote telemetry showing normal sinus rhythm heart rate 64 BPM. Objective - Vital Signs Vital signs: Vital Signs Temp 98.4 F 03/23/22 09:19 Pulse 64 03/23/22 09:19 Resp 14 03/23/22 09:19 BP 126/62 03/23/22 09:19 Pulse Ox 98 03/23/22 09:19 FiO2 21 03/19/22 11:12 Intake & Output 03/22/22 03/23/22 03/23/22 18:59 06:59 18:59 Intake Total 822 Output Total 2500 Balance -1678 Weight 107.1 kg Intake: Oral 822 Output: Hemodialysis 2500 Other: Voiding Method Toilet Toilet - Exam CONSTITUTIONAL: Appears comfortable, cooperative, no acute distress. RESPIRATORY: Lungs sounds diminished bilaterally to his bases right greater than left. Respirations are symmetrical and nonlabored. Currently on room air with oxygen saturation 98%. Able to achieve 2000 mL on his incentive spirometry. Pleurx catheter present. CARDIOVASCULAR: S1, S2 present. Regular rate and rhythm. Palpable peripheral pulses bilaterally. Remote telemetry showing normal sinus rhythm with first- degree heart block, heart rate 64 BPM. GASTROINTESTINAL: Abdomen soft, nontender, nondistended. Active bowel sounds present 4 quadrants. Tolerating diet. GENITOURINARY: Continues to void. INTEGUMENTARY: Skin is warm and dry, no evidence of clubbing or cyanosis is present. Dressing is clean, dry and intact to the right Pleurx catheter. NEUROLOGIC: Cranial nerves II through XII intact. No focal deficits. MUSKULOSKELETAL: Able to move all extremities, strength equal bilaterally, gait normal. PSYCHIATRIC: Oriented to person place and time, appropriate affect, intact judgment and insight. - Allied health notes Allied health notes reviewed: nursing - Labs CBC & Chem 7: 03/23/22 08:55 03/23/22 08:55 Labs: Abnormal Lab Results - Last 24 Hours (Table) 03/22/22 03/22/22 03/22/22 Range/Units 11:35 16:36 20:18 RBC (4.30-5.90) m/uL Hgb (13.0-17.5) gm/dL Hct (39.0-53.0) % RDW (11.5-15.5) % Lymphocytes # (1.0-4.8) k/uL Sodium (137-145) mmol/L Chloride (98-107) mmol/L BUN (9-20) mg/dL Creatinine (0.66-1.25) mg/dL Glucose (74-99) mg/dL POC Glucose (mg/dL) 173 H 282 H 223 H (70-110) mg/dL 03/23/22 03/23/22 03/23/22 Range/Units 06:29 08:55 08:55 RBC 3.19 L (4.30-5.90) m/uL Hgb 10.0 L (13.0-17.5) gm/dL Hct 30.8 L (39.0-53.0) % RDW 15.7 H (11.5-15.5) % Lymphocytes # 0.9 L (1.0-4.8) k/uL Sodium 131 L (137-145) mmol/L Chloride 94 L (98-107) mmol/L BUN 31 H (9-20) mg/dL Creatinine 5.18 H (0.66-1.25) mg/dL Glucose 166 H (74-99) mg/dL POC Glucose (mg/dL) 201 H (70-110) mg/dL - Imaging and Cardiology Chest x-ray: report reviewed, image reviewed Assessment and Plan Assessment: 1. Bilateral pleural effusions, right greater than left, status post right sided pigtail catheter placement by interventional radiology, status post placement of right-sided Pleurx catheter and right-sided VATS with pleural biopsy 3. Acute diastolic heart failure 4. End-stage renal disease, receives hemodialysis treatments 3 times a week 5. History of coronary artery disease status post coronary artery bypass grafting surgery 6 vessels, status post PCI 6. Hypertension 7. Hyperlipidemia 8. Diabetes mellitus 9. Remote history of nicotine dependence, quit smoking 15-20 years ago. Plan: 1. Pleurx catheter care and drainage was taught to the patient and his daughter Vanesa this morning with demonstration completed. Questions answered to the best my ability. 2. Encourage incentive spirometry use 10 times every hour while awake. 3. Increase activity as tolerated, out of bed for all meals. Ambulate as tolerated. 4. Medical management of other comorbidities per primary care service. 5. Final pathology on the pleural biopsy remains pending. 6. Drainage frequency dictated by the patient's symptoms, maybe every day, every other day, weekly as needed or if the patient is symptomatic. Patient was instructed not to drain more than 1 L or 1000 mL from the Pleurx catheter and 24 hour period. 7. We will continue to follow the patient on an as-needed basis, per the cardiothoracic surgery standpoint the patient can be discharged home when okay with primary care service and other consultants. Time with Patient: Greater than 30
[2022-03-23 11:32] LABS: Glucose,Whole Blood 196 mg/dL (70-110)
--- NOTE | 2022-03-23 11:34 | P.PN ---
Subjective Progress Note Date: 03/23/22 Principal diagnosis: Acute hypoxic history failure secondary to loculated left-sided pleural effusion 03/20/2022, the patient is being seen for a follow-up. The pigtail catheter in place and output has been in the order of 250 mL over the past 24 hours. As such, this is a drop in the output from the right-sided pigtail catheter. Meanwhile, a repeat chest x-ray was done and the patient continues to have similar findings with a loculated pneumothorax in the right lung base and there is a trapped lung with pleural thickening. There may be some minimal increase in size of the right-sided hydropneumothorax. Otherwise, no significant interval change. As mentioned, the patient has had multiple thoracenteses in the past. There is a concern for mesothelioma. I was able to obtain results of the previous pleural fluid cytology from [facility] indicating no lawrence gnancy. The pleural fluid cytology from our hospital was also negative. I'm reevaluating this patient today 03/21/2022 in follow-up on the general medical floor. He is scheduled for VATS procedure with pleural biopsies and Pleurx catheter insertion today. he continues to have a right pigtail catheter for a persistent right loculated hydropneumothorax. he has had approximately 175 mL output of serosangenous fluid in the last 24 hours. patient's chest x-ray from today shows no significant interval change, with a stable hydropneumothorax, calcified pleural plaque, and pleural thickening.patient's CBC from today is stable with a WBC count is 7.2, hemoglobin of 9.6, hematocrit 30.4, platelets 256,000. Patient's BMP is also stable with a sodium 135, potassium 4.6, chloride 100, serum CO2 28, BUN 35, creatinine 5.43, glucose 172. patient did receive hemodialysis yesterday and is maintained on a Thursday, , Thursday schedule. patient's vital signs remain stable. Reevaluated today on 03/22/22, patient seems to be doing well today, patient underwent Pleurx catheter placement yesterday by thoracic surgery. He also underwent a bronchoscopy, right sided video-assisted thoracoscopic pleural biopsy and insertion of a Pleurx catheter. Patient is doing well, relatively asymptomatic today. He is now on room air, O2 sats is 99%. And he is undergoing hemodialysis Reevaluated today on 03/23/2022, patient is now postoperative day #3, he had a right-sided pigtail catheter placement by interventional radiology and the pigtail catheter was removed on 03/21. Patient did undergo bronchoscopy, right- sided video-assisted thoracoscopic evaluation with pleural biopsy, and insertion of a Pleurx catheter. Pathology from the pleural biopsy is pending, patient is doing well today, thoracic surgery was able to drain 450 ML of thin serosanguineous drainage from the right Pleurx catheter this morning. Clinically the patient is doing great, and I believe possibly in the next 24 hours we'll consult planning discharge on this patient in follow-up on outpatient basis with Dr. Pichardo. The pathology report on his fluoroscopy biopsy may take another 5 days before it becomes available.labs today are unremarkable, his BUN however is 31 creatinine 5.18, no plans for hemodialysis today, but he would likely be dialyzed tomorrow Objective - Vital Signs Vital signs: Vital Signs Temp 98.4 F 03/23/22 09:19 Pulse 64 03/23/22 09:19 Resp 14 03/23/22 09:19 BP 126/62 03/23/22 09:19 Pulse Ox 98 03/23/22 09:19 FiO2 21 03/19/22 11:12 Intake & Output 03/22/22 03/23/22 03/23/22 18:59 06:59 18:59 Intake Total 822 180 Output Total 2500 450 Balance -1678 -270 Weight 107.1 kg Intake: Oral 822 180 Output: Drainage 450 Right Lateral Chest 450 Hemodialysis 2500 Other: Voiding Method Toilet Toilet Toilet - Exam GENERAL EXAM: Alert, in no distress on room air. HEAD: Normocephalic. HEENT: PERRLA, EOMI, nonicteric, no masses no JVD. CHEST: No chest wall deformity. right pigtail catheter in place. LUNGS: Diminished breath sounds at the bases, right-sided Pleurx catheter is noted. CVS: S1 and S2 normal with no audible murmur, regular rhythm. ABDOMEN: No hepatosplenomegaly, normal bowel sounds, no guarding or rigidity. SKIN: No rashes CENTRAL NERVOUS SYSTEM: Alert and oriented 3 no gross focal deficits. EXTREMITIES: No clubbing edema or cyanosis. - Labs CBC & Chem 7: 03/23/22 08:55 03/23/22 08:55 Labs: Abnormal Lab Results - Last 24 Hours (Table) 03/22/22 03/22/22 03/22/22 Range/Units 11:35 16:36 20:18 RBC (4.30-5.90) m/uL Hgb (13.0-17.5) gm/dL Hct (39.0-53.0) % RDW (11.5-15.5) % Lymphocytes # (1.0-4.8) k/uL Sodium (137-145) mmol/L Chloride (98-107) mmol/L BUN (9-20) mg/dL Creatinine (0.66-1.25) mg/dL Glucose (74-99) mg/dL POC Glucose (mg/dL) 173 H 282 H 223 H (70-110) mg/dL 03/23/22 03/23/22 03/23/22 Range/Units 06:29 08:55 08:55 RBC 3.19 L (4.30-5.90) m/uL Hgb 10.0 L (13.0-17.5) gm/dL Hct 30.8 L (39.0-53.0) % RDW 15.7 H (11.5-15.5) % Lymphocytes # 0.9 L (1.0-4.8) k/uL Sodium 131 L (137-145) mmol/L Chloride 94 L (98-107) mmol/L BUN 31 H (9-20) mg/dL Creatinine 5.18 H (0.66-1.25) mg/dL Glucose 166 H (74-99) mg/dL POC Glucose (mg/dL) 201 H (70-110) mg/dL Assessment and Plan Assessment: Impression: Acute hypoxic respiratory failure secondary to bilateral pleural effusions, secondary to end-stage renal disease, on hemodialysis. Status post VATS pleural biopsy and placement of a Pleurx catheter on 03/21/22, History of coronary artery disease and previous CABG End-stage renal disease, on hemodialysis Type 2 diabetes. Benign essential hypertension. Dyslipidemia. Ex-smoker. Recommendation: discussed with the patient and his daughter at bedside, that the pathology will be available in the next 4-5 days, however the patient does not need to be in the hospital for the final pathology report did become available, he could follow-up with Dr. Pichardo on outpatient basis. Family would be educated about the drainage of the Pleurx catheter. May need home care. Continue present supportive care measures Continue hemodialysis will clear the patient to be discharged home in the next 24 hours if cleared by other consultants. Patient to follow-up with Dr. Pichardo postdischarge We will continue to Time with Patient: Less than 30
--- NOTE | 2022-03-23 12:54 | P.PN ---
Subjective Progress Note Date: 03/23/22 Follow-up for ESRD. Objective - Vital Signs Vital signs: Vital Signs Temp 98.4 F 03/23/22 09:19 Pulse 64 03/23/22 09:19 Resp 14 03/23/22 09:19 BP 126/62 03/23/22 09:19 Pulse Ox 98 03/23/22 09:19 FiO2 21 03/19/22 11:12 Intake & Output 03/22/22 03/23/22 03/23/22 18:59 06:59 18:59 Intake Total 822 180 Output Total 2500 450 Balance -1678 -270 Weight 107.1 kg Intake: Oral 822 180 Output: Drainage 450 Right Lateral Chest 450 Hemodialysis 2500 Other: Voiding Method Toilet Toilet Toilet - Exam No acute distress S1-S2 heard Lungs clear No edema - Labs CBC & Chem 7: 03/23/22 08:55 03/23/22 08:55 Labs: Abnormal Lab Results - Last 24 Hours (Table) 03/22/22 03/22/22 03/23/22 Range/Units 16:36 20:18 06:29 RBC (4.30-5.90) m/uL Hgb (13.0-17.5) gm/dL Hct (39.0-53.0) % RDW (11.5-15.5) % Lymphocytes # (1.0-4.8) k/uL Sodium (137-145) mmol/L Chloride (98-107) mmol/L BUN (9-20) mg/dL Creatinine (0.66-1.25) mg/dL Glucose (74-99) mg/dL POC Glucose (mg/dL) 282 H 223 H 201 H (70-110) mg/dL 03/23/22 03/23/22 03/23/22 Range/Units 08:55 08:55 11:30 RBC 3.19 L (4.30-5.90) m/uL Hgb 10.0 L (13.0-17.5) gm/dL Hct 30.8 L (39.0-53.0) % RDW 15.7 H (11.5-15.5) % Lymphocytes # 0.9 L (1.0-4.8) k/uL Sodium 131 L (137-145) mmol/L Chloride 94 L (98-107) mmol/L BUN 31 H (9-20) mg/dL Creatinine 5.18 H (0.66-1.25) mg/dL Glucose 166 H (74-99) mg/dL POC Glucose (mg/dL) 196 H (70-110) mg/dL Assessment and Plan Assessment: #1 ESRD TTS. #2 bilateral pleural effusion status post Pleurx catheter #3 anemia with chronic kidney disease #4 hypertension with chronic kidney disease #5 volume overload Plan: #1 hemodialysis on Thursday as per outpatient schedule #2 maintain on diuretics.
[2022-03-23 16:22] LABS: Glucose,Whole Blood 227 mg/dL (70-110)
[2022-03-23 20:07] LABS: Glucose,Whole Blood 177 mg/dL (70-110)
[2022-03-23] MEDS: ESCITALOPRAM 20 MG TAB PO SCH (20:39)
[2022-03-23] MEDS: ATORVASTATIN 40 MG TAB PO SCH (20:39)
[2022-03-24] MEDS: HEPARIN SODIUM,PORCINE/PF 5,000 UNIT/0.5 ML SYRINGE SQ SCH ×2 (00:17→08:20)
[2022-03-24 06:13] LABS: Glucose,Whole Blood 234 mg/dL (70-110)
--- NOTE | 2022-03-24 06:36 | PN ---
PROGRESS NOTE DATE OF SERVICE: 03/23/2022 SUBJECTIVE: This is a 72-year-old gentleman, who was admitted with renal failure, also had pleural effusion. The patient had PleurX drainage. The family has been educated about it. OBJECTIVE: VITAL SIGNS: Pulse is 68, blood pressure 170/76, respirations 16. CHEST: A few scattered rhonchi. ABDOMEN: Soft. NERVOUS SYSTEM: No focal deficits. LABORATORY DATA: Hemoglobin 10, sodium 131. ASSESSMENT: 1. Acute left-sided loculated pleural effusion, status post PleurX drainage. 2. Chronic kidney disease, on hemodialysis. 3. Diabetes mellitus, type 2. 4. Hypertension. 5. Hyperlipidemia. 6. Multiple medical issues. RECOMMENDATIONS: Recommend to continue current management and symptomatic treatment. Otherwise, the patient is stable. The patient might be able to be discharged in the next 24 hours with outpatient followup. ZAHIRA / EMETERIO: [id number] /
[2022-03-24] MEDS: PANTOPRAZOLE 40 MG TABLET PO SCH (06:38)
[2022-03-24] MEDS: INSULIN ASPART (NovoLOG) 100 UNIT/ML VIAL SQ SCH ×2 (06:38→12:08)
[2022-03-24] MEDS: CALCIUM ACETATE 667 MG TAB PO SCH ×2 (06:38→12:08)
[2022-03-24] MEDS: carvediloL 3.125 MG TAB PO SCH (06:38)
[2022-03-24 08:19] VITALS: RESP 18
[2022-03-24] MEDS: hydrALAZINE HCL 25 MG TAB PO SCH (08:20)
[2022-03-24] MEDS: TORSEMIDE 20 MG TAB PO SCH (08:20)
[2022-03-24] MEDS: ASPIRIN 81 MG PO SCH (08:20)
[2022-03-24] MEDS: FOLIC ACID-VIT B COMPLEX-VIT C 1 CAP PO SCH (08:20)
[2022-03-24] MEDS: amLODIPine 10 MG TAB PO SCH (08:21)
--- NOTE | 2022-03-24 10:13 | P.PN ---
Subjective Progress Note Date: 03/24/22 72-year-old male, seen in the emergency room, room #27. This is a patient who was seen in the emergency department initially on March 10. He came into the emergency room with complaints of shortness of breath, cough, and chest pain. The patient does have a history of end-stage renal disease, typically on Thursday, , and Thursday hemodialysis. He also has history of diabetes, hypertension, CAD, and previous bypass grafting. Over the last 10-14 days, the patient admits to increasing shortness of breath, and cough. He also has worsening orthopnea. The patient had a chest x-ray which revealed a pleural effusion, which was noted to be bilaterally, worse on the right side. It also appears to be loculated. The patient is typically not on home oxygen, but his saturations initially in the ER, were in the high 80s. He was placed on 2 L. He is not on any IV fluids. White count 9.6, hemoglobin 10.2, hematocrit 30.9, and platelet count 263,000. Sodium 135, potassium I.0, chloride 96, CO2 29, BUN 27, and creatinine 5.79. N-terminal proBNP was 72,500. Chest x-ray showed bilateral pleural effusion, right greater than left. The right-sided effusion is certainly loculated. The computed tomography scan showed bilateral pleural effusions, larger on the right side. There was no evidence of pulmonary embolism. There was calcified pleural plaque noted. The patient is seen today 03/12/2022 in follow-up on the selective care unit. He is currently sitting up in a chair at the bedside. Awake and alert in no acute distress. Maintaining good O2 saturations in the 90s on room air. No worsening shortness of breath, cough or congestion. No IV fluids. He did receive hemodialysis yesterday with 2.4 L removed. Chest x-ray from today is pending. White count 7.1. Hemoglobin 9.6. Platelets 238. Sodium 131. Potassium 4.6. BUN is 24. Creatinine 5.11. Glucose 201. He remains on oral diuretics. The patient is seen today 03/13/2022 in follow-up on the selective care unit. Currently resting comfortably in bed. Awake and alert in no acute distress. He is maintaining O2 saturations in the 90s on room air. No IV fluids currently. Chest x-ray continues to show right-sided loculated pleural effusion. Interventional radiologist for thoracentesis once his Plavix is held for 5 days. Otherwise the patient is doing well. No complaints. Echocardiogram reveals preserved left ventricular systolic function with ejection fraction of 50-55%. Blood glucose 147. Troponin negative 1. He remains on oral diuretics. Heparin for DVT prophylaxis. He should be receiving hemodialysis today. The patient is seen today 03/24/2022 in follow-up on selective care unit. He is currently sitting up in bed awake and alert in no acute distress. Pleural fluid cultures revealing no growth.Pleural biopsy pathology pending. Blood glucose 234.He denies any shortness of breath, cough or congestion. He remains on his normal scheduled now dialysis. He and his daughter had been educated by CT services regarding draining the Pleurx catheter home. Objective - Vital Signs Vital signs: Vital Signs Temp 98 F 03/24/22 08:00 Pulse 60 03/24/22 08:00 Resp 18 03/24/22 08:00 BP 116/55 03/24/22 08:00 Pulse Ox 96 03/24/22 08:00 FiO2 21 03/19/22 11:12 Intake & Output 03/23/22 03/24/22 03/24/22 18:59 06:59 18:59 Intake Total 960 540 480 Output Total 450 Balance 510 540 480 Weight 108.4 kg Intake: Oral 960 540 480 Output: Drainage 450 Right Lateral Chest 450 Other: Voiding Method Toilet Toilet # Voids 3 - Exam GENERAL EXAM: Alert, very pleasant 72-year-old male, on room air, resting in bed, comfortable in no apparent distress. HEAD: Normocephalic. EYES: Normal reaction of pupils, equal size. NOSE: Clear with pink turbinates. THROAT: No erythema or exudates. NECK: No masses, no JVD. CHEST: No chest wall deformity. Right-sided Pleurx catheter remains in place. LUNGS: Equal air entry with crackles in the bilateral bases right greater than left. CVS: S1 and S2 normal with no audible murmur, regular rhythm. ABDOMEN: No hepatosplenomegaly, normal bowel sounds, no guarding or rigidity. SPINE: No scoliosis or deformity SKIN: No rashes CENTRAL NERVOUS SYSTEM: No focal deficits, tone is normal in all 4 extremities. EXTREMITIES: There is no peripheral edema. No clubbing, no cyanosis. Peripheral pulses are intact. - Labs CBC & Chem 7: 03/23/22 08:55 03/23/22 08:55 Labs: Abnormal Lab Results - Last 24 Hours (Table) 03/23/22 03/23/22 03/23/22 Range/Units 11:30 16:21 20:05 POC Glucose (mg/dL) 196 H 227 H 177 H (70-110) mg/dL 03/24/22 Range/Units 06:12 POC Glucose (mg/dL) 234 H (70-110) mg/dL Assessment and Plan Assessment: Acute hypoxic respiratory failure, likely related to bilateral right greater than left effusions. Right-sided Pleurx catheter in place. Pathology pending. Acute fluid overload, secondary to end-stage renal disease. Recovered and on room air End-stage renal disease, currently on 3 times a week hemodialysis. Thursday schedule History of CAD with previous bypass grafting. History of diabetes mellitus. History of hypertension. Prior history of tobacco use. History of hyperlipidemia. Plan: The patient was seen and evaluated Medications and labs reviewed Remains with a right-sided Pleurx catheter Stable and on room air Cleared for discharge from pulmonary standpoint I have personally seen and examined the patient, performed the documentation and the assessment and plan as written. Number of minutes spent on the visit: 10.
--- NOTE | 2022-03-24 11:31 | P.PN ---
Subjective Patient is seen for follow-up for end-stage renal disease. He is maintained on a Thursday schedule. Patient was admitted with shortness of breath and there is some consideration for volume overload as well as pneumonia. Status post right Pleurx catheter and right-sided VATS with pleural biopsy. No complaints. Objective - Vital Signs Vital signs: Vital Signs Temp 98 F 03/24/22 08:00 Pulse 60 03/24/22 08:00 Resp 18 03/24/22 08:00 BP 116/55 03/24/22 08:00 Pulse Ox 96 03/24/22 08:00 FiO2 21 03/19/22 11:12 Intake & Output 03/23/22 03/24/22 03/24/22 18:59 06:59 18:59 Intake Total 960 540 480 Output Total 450 Balance 510 540 480 Weight 108.4 kg Intake: Oral 960 540 480 Output: Drainage 450 Right Lateral Chest 450 Other: Voiding Method Toilet Toilet # Voids 3 - Exam Awake, comfortable, no acute distress Examination of the heart S1 and S2 Examination of the lungs bilateral breath sounds are heard Abdomen is soft nontender Examination lower extremities shows no significant edema EXECUTIVE COORDINATOR exam grossly intact - Labs CBC & Chem 7: 03/23/22 08:55 03/23/22 08:55 Labs: Abnormal Lab Results - Last 24 Hours (Table) 03/23/22 03/23/22 03/23/22 Range/Units 11:30 16:21 20:05 POC Glucose (mg/dL) 196 H 227 H 177 H (70-110) mg/dL 03/24/22 Range/Units 06:12 POC Glucose (mg/dL) 234 H (70-110) mg/dL Assessment and Plan Assessment: 1. End-stage renal disease on hemodialysis on a Thursday schedule 2. Volume overload 3. Possible pneumonia, right pleural effusion, loculated. Status post right Pleurx catheter placement, VATS procedure and pleural biopsy 4. CK D mineral bone disorder Plan: Hemodialysis in a.m.
[2022-03-24 11:35] LABS: Glucose,Whole Blood 170 mg/dL (70-110)
[2022-03-24 12:39] VITALS: BP 134/50; PULSE 64; TEMP 97.9
[2022-03-24] MEDS ORDERED: HYDROcodone/APAP 5-325MG 1 EACH TAB PO PRN (13:29)
[2022-03-24] MEDS ORDERED: DOCUSATE 100 MG CAP PO SCH (13:45)
--- NOTE | 2022-03-24 13:45 | P.CONS ---
History of Present Illness - Reason for Consult Consult date: 03/24/22 Goals of care Requesting physician: Kristi Law - History of Present Illness The patient is a 72-year-old male with a past medical history significant for ESRD on hemodialysis Thursday, , Thursday, diabetes, hypertension, CABG 6 vessels one year ago, and asbestos exposure. He presented to the emergency department on 03/10/22 with concerns of progressively worsening shortness of caroline th over the previous 2 weeks. The patient has had previous left-sided pleural effusions that required thoracentesis twice in the past. He has a remote history of nicotine dependence but has quit smoking approximately 20 years ago. He denied any recent fever, chills, nausea, vomiting, or palpitations. Workup in the emergency department who did a chest x-ray which showed bilateral pneumonia and moderate-sized right pleural effusion with loculation. A CAT scan of the chest was also completed which showed bilateral pleural effusions (right >left), no evidence of pulmonary embolism, despite pleural plaque, and some right lower lobe atelectasis with calcification. The right-sided pleural ef fusion appeared to be loculated interventional cardiology was consulted and performed a ultrasound-guided thoracentesis. A pigtail catheter was placed and the patient received thrombolytics. The pleural fluid cytology is negative and there is some residual volume loss and hydropneumothorax on the right in the right lung is essentially trapped in the pleural surface is quite irregular, thickened, scar and has some plaques. There is a concern for mesothelioma. Pulmonary was able to obtain results of the previous pleural fluid cytology from [facility] indicating no malignancy. The pleural fluid cytology from our hospital was also negative. On 03/21/22 the patient underwent a broncho scopy, right-sided VATS with pleural biopsy, and insertion of Pleurx catheter. The patient tolerated the procedure well, is hemodynamically stable, and is likely to be discharged soon. Unfortunately, the pathology report from his biopsy may take another few days to get results. Review of Systems Constitutional: Denies chills, Denies fever Ears, nose, mouth and throat: Denies headache, Denies sore throat Cardiovascular: Reports chest pain, Reports shortness of breath Respiratory: Reports cough, Denies home oxygen Gastrointestinal: Denies nausea, Denies vomiting Genitourinary: Denies dysuria Past Medical History Past Medical History: Coronary Artery Disease (CAD), Diabetes Mellitus, Di alysis, Hyperlipidemia, Hypertension, Memory Impairment, Renal Disease Additional Past Medical History / Comment(s): CABG, Cataracts History of Any Multi-Drug Resistant Organisms: None Reported Past Surgical History: Adenoidectomy, Tonsillectomy Additional Past Surgical History / Comment(s): 6 vessel coronary bypass, bilateral cataract surgery, left arm hemodialysis AV fistula. Past Anesthesia/Blood Transfusion Reactions: No Reported Reaction Past Psychological History: Depression Smoking Status: Former smoker Past Alcohol Use History: None Reported Past Drug Use History: None Reported - Past Family History Daughter(s) Family Medical History: No Reported History Medications and Allergies Home Medications Medication Instructions Recorded Confirmed Type Calcium Acetate [PhosLo] 667 mg PO QID 03/11/22 03/11/22 History Clopidogrel [Plavix] 75 mg PO DAILY 03/11/22 03/11/22 History Escitalopram [Lexapro] 20 mg PO DAILY 03/11/22 03/11/22 History Pantoprazole [Protonix] 40 mg PO DAILY 03/11/22 03/11/22 History Rosuvastatin Calcium 40 mg PO HS 03/11/22 03/11/22 History carvediloL [Coreg] 3.125 mg PO BID 03/11/22 03/11/22 History Aspirin 81 mg PO DAILY #30 tab 03/24/22 Rx Benzocaine/Menthol Lozeng [Cepacol 1 each MUCOUS MEM Q4HR PRN lozenge 03/24/22 Rx lozenge] Darbepoetin [place] [Aranesp] 40 mcg SQ Q7D each 03/24/22 Rx Empagliflozin [Jardiance] 25 mg PO DAILY #30 tablet 03/24/22 Rx Folic Acid-Vit B Complex-Vit C 1 each PO DAILY #30 cap 03/24/22 Rx [Nephrocaps] Torsemide [Demadex] 40 mg PO DAILY #30 tab 03/24/22 Rx amLODIPine [Norvasc] 10 mg PO DAILY #30 tab 03/24/22 Rx hydrALAZINE HCL [Apresoline] 25 mg PO TID #90 tab 03/24/22 Rx traMADol HCl [Ultram] 50 mg PO QID PRN 5 Days #20 tab 03/24/22 Rx Allergies Allergy/AdvReac Type Severity Reaction Status Date / Time cephalexin [From Keflex] Allergy Rash/Hives Verified 03/11/22 07:11 codeine Allergy Rash/Hives Verified 03/11/22 07:11 Physical Exam Vitals: Vital Signs Temp Pulse Resp BP Pulse Ox 03/24/22 12:00 97.9 F 64 18 134/50 95 03/24/22 08:00 98 F 60 18 116/55 96 03/24/22 07:39 97 03/24/22 04:00 97.9 F 64 15 167/72 96 03/24/22 00:00 97.5 F L 68 15 171/67 95 03/23/22 20:00 97.7 F 67 18 175/75 95 03/23/22 15:10 98.1 F 68 16 170/76 96 Intake and Output 03/23/22 03/24/22 03/24/22 22:59 06:59 14:59 Intake Total 180 540 480 Balance 180 540 480 Intake: Oral 180 540 480 Other: Voiding Method Toilet # Voids 3 Weight 108.4 kg General: Well developed, well nourished. No acute distress. HEENT: Head is atraumatic, normocephalic. Sclera are clear. CV: Heart regular in rate and rhythm positive S1 and S2. Lungs: Diminished bilateral bases. Respirations even and nonlabored. Abdomen/GI: Soft, nondistended. No guarding, rigidity, or abdominal tenderness. Musculoskeletal/ Extremities: HOLT No gross atrophy. + generalized weakness Skin: Warm and dry, No rash or lesions. Attempted pigtail catheter Neurologic: Awake, alert and oriented times 3. CN II-XII grossly intact. No focal deficits. Psychiatric: Appropriate mood and affect. Results CBC & Chem 7: 03/23/22 08:55 03/23/22 08:55 Labs: Abnormal Lab Results - Last 24 Hours (Table) 03/23/22 03/23/22 03/24/22 Range/Units 16:21 20:05 06:12 POC Glucose (mg/dL) 227 H 177 H 234 H (70-110) mg/dL 03/24/22 Range/Units 11:33 POC Glucose (mg/dL) 170 H (70-110) mg/dL Microbiology - Last 24 Hours (Table) 03/14/22 12:35 Acid Fast Bacilli Smear - Final Pleural Fluid Acid Fast Bacilli Culture - Preliminary Abdominal x-ray: report reviewed CT scan - chest: report reviewed Assessment and Plan Assessment: Social * Occupation - retired * Marital status - * Children/grandchildren - 2 adult children * Residence - house * Who do you reside with - low * ETOH - none reported * Tobacco - history of smoking, quit approximately 20 years ago * Illicit drugs - none reported Spiritual/Cultural * A spiritual person - yes * Restorationist - Yazidi * Belong to a particular synagogue - [facility] in [place] * Beliefs a source of comfort and strength - yes * Lutheran or cultural practices restrictions - no * EOL considerations/rituals -none Functional Assessment * Able to walk independently - yes * Assistive devices - has a walker at home, but only occasionally uses a * Able to use the bathroom independently - yes * Continent - yes * Require assistance bathing- no * Able to feed self - yes * Who prepares meals - patient * How many meals a day eaten - 2-3 * Able to clean house/do laundry - yes * Transportation - patient will rely on his daughter, Vanesa, for transportation * Able to shop - yes * Who manages medications - patient * Who manages finances - patient Psychological/Emotional * Dementia present -no * Insight and judgment - intact * Depression - a "little bit " * Suicidal thoughts - no * Good support system - yes, his daughter * Patients goals - prolonged survival * Frequent hospitalizations - no * Desire to keep coming back to the hospital for treatment - yes Symptoms * Pain - 09/01 right-sided pigtail catheter insertion site, Ultram and Dilaudid discontinued. Start [place] as needed * Fatigue - general weakness and fatigue, continue PT/OT, and Aranesp * SOB - none, on room air, continue Demadex * Insomnia - no * N/V - no * Anxiety - no * Depression - some, continue Lexapro * Confusion - none * Agitation - no * Hallucinations - no * Appetite/weight loss - patient has a good appetite, continue heart healthy diet * Dysphagia - no * Constipation - LBM 03/20, start Colace * Incontinence - no * Itch - no * Cough - occasional dry cough, continue Cepacol throat lozenges Plan: Summary/Goals - The patient is sitting up in the chair eating lunch. Information regarding palliative care and hospice philosophies and services was provided. Patient states he is having significant pain at the pigtail catheter site. He states that the Ultram does not control the pain adequately. He does not like using the Dilaudid because it knocks him out. Ultram and Dilaudid were discontinued and the patient was started on [place] 5/325 as needed. The patient states that he is waiting for his lung biopsy results. He is very emotional. Emotional support provided. Patient states that he has had asbestos exposure in the past and understands the doctor's think he has mesothelioma. At this point in time the patient would like to continue with aggressive care. The patient got very teary stating there are still some anything would like to do. He would like to go to [facility] to see his mother's grave again. He also stated that he lost his grand son very much and would like to see him graduate high school. The patient was encouraged to keep living and accomplishing his wishes while he is still somewhat independent. He was encouraged to have conversations with his daughters regarding end-of-life wishes. He was given a 5 wishes to complete. The patient is agreeable to outpatient palliative care. Spoke to patient's daughter, Vanesa, via telephone. She was also very emotional. She was told that her father's life expectancy would be approximately one year if he does have mesothelioma. Vanesa is very close to her father and is willing to help in any way. She is also agreeable to her father receiving palliative care at home. Recommendations - discharge home when medically stable with HHC, PT/OT, social work, and palliative care Advanced Directives - advanced directives are on file Code Status - full code Thank you for this consultation Bessie Rodriguez [facility] Palliative Care [facility] [id number] Email: [email or web address]
[2022-03-24 16:10] LABS: Glucose,Whole Blood 211 mg/dL (70-110)
--- NOTE | 2022-03-25 22:20 | P.DS ---
Providers Date of admission: 03/11/22 00:39 Attending physician: Isaak Amaya Consults: 03/10/22 23:28 Consult Physician Routine Consulting Provider: Stella Gomez Consult Reason/Comments: dialysis Do you want consulting provider notified?: Already Contacted 03/11/22 00:37 Consult Physician Routine Consulting Provider: Tee Pena Consult Reason/Comments: pleural effusion Do you want consulting provider notified?: Yes, Notify in am 03/16/22 08:29 Consult Physician Routine Consulting Provider: Cornell Stewart Consult Reason/Comments: Alteplase/dornase infusions Do you want consulting provider notified?: Yes 03/24/22 11:32 Consult to Palliative Care Urgent Consulting Provider: Bessie Rodriguez Consult Reason/Comments: recurrent pleural effusion, pathology pending, has pleurx catheter - ESRD Do you want consulting provider notified?: Yes [facility] [place] [place] [facility] Course: Final Diagnosis Acute right sided loculated pleural effusion status post pleurx drainage with cytology showing scattered mesothelial cells. Chronic kidney disease on hemodialysis Coronary artery disease with previous CABG about 1 year ago Diabetes Mellitus type 2 Non-healing diabetic foot ulcer right plantar foot recommended to continue following with podiatry on discharge. Hypertension Hyperlipidemia History of asbestos exposure Chronic smoker Full Code Discharge Disposition Patient is stable for discharge home. He has PleurX catheter in place to right lateral chest wall. Patients daughter has been educated on draining. Cardio thoracic will continue to follow with patient in the office. Cytology from pleural effusion consisting mainly of blood. No cytologically malignant cells identified. Cytology from bronchospy/VATS showing scattered reactive mesothelial cells. Patient has been started on hydralazine 25 mg TID, norvasc 10 mg Daily, patient to continue on carvedilol BID. Torsemide has been increased to 40 mg daily. Patient is resumed on plavix on discharge. Recommend to see his primary provider Dr. Davila in 1 to 2 days. Patient will need to follow up with nephrology, cardiology, pulmonary, and cardiothoracic services. 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 Discharged home with [facility] and [facility] to provide PleurX drainage bottles and supplies. Patient is instructed to notify the cardiothoracic office once drainage is less than 50 mLs three times in a row. Continue same //Sat hemodialysis schedule. Recommend to repeat labs in 2 to 3 days. Hospital Course This is a 72 year old male with medical history of diabetes, hypertension, hyperlipidemia, chronic kidney disease on hemodialysis Thu. Patient also had 6 vessel CABG about 1 year ago and developed pleural effusion postoperatively. He has undergone bilateral thoracentesis with recurrence of right sided pleural effusion. Patient presents to the emergency room with chief complaint of shortness of breath which has been progressively worsening over the last few weeks. Patient reports orthopnea and also worsening nonproductive cough. Patient was hypoxic on room air with oxygen saturation in the 80s. He also had an episode of substernal chest pain. Patient has not missed any hemodialysis. On admission his white count was normal, troponin levels were negative. He had elevated proBNP at 72,500. COVID, RSV, Influenza A and B were negative. He had chest xray showing bilateral pneumonia with moderate right sized pleural effusion with loculation. Emphysema vs. Mesothelioma. Follow up chest CT reveals bilateral pleural effusions larger on the right side. No pulmonary embolism. There is right lower lobe atelectasis with calcification. Patient was admitted to the hospital with consult placed to cardiology, pulmonary, and nephrology services. Patient was given a dose of IV lasix and IV vancomycin in the EC. Echocardiogram showing EF 50-55% with RV enlargement and mild to moderate mitral regurgitation. Cardiothoracic services was consulted for further evaluation. Patient had right sided chest tube inserted by IR and received alteplace/dornase infusion x 3 days. Patient continued with right sided pigtail catheter with out much improvement and underwent bronchoscopy with right sided VATS with pleural biopsy. Patient also had PleurX catheter inserted. Operative findings show right pleural rind and thickening suggestive of chronic inflammation and possible neoplasm. Cytology showing no malignant cells with scattered reactive mesothelial cells. Throughout admission patient was followed by nephrology and continued with hemodialysis he will continue same Sat scheduled on discharge. Patient has been weaned to room air. His diuretic has been increased to 40 mg daily. He is cleared for discharge home with family and to continue with PleurX catheter drainage for recurrent right sided pleural effusion. 03/24/2022 Patient is evaluated today resting in bed. Plan for discharge home today. No acute events overnight. He denies chest pain, denies shortness of breath. Patient has undergo hemodialysis yesterday and planning to resume outpatient hemodialysis tomorrow 03/25/2022 per usual schedule. He has PleurX catheter in place to right chest wall. He does continue to report discomfort rating pain about a 5/10 for which he is receiving tramadol. He has been ambulating without difficulty and has been using incentive spirometer. He has diminished right base. S1 S2 auscultated. Abdomen is soft and nontender. Focal neurological exam is negative. He is alert x 3. Most recent labs showing white count of 7.97, hemoglobin 10.0, sodium of 135, potassium 4.7, BUN 40, creatinine 6.8. Blood glucose in the 190s. He is afebrile, heart rate 64, blood pressure 134/50, 95% room air. Total time taken in discharge planning greater than 35 minutes. Please see medication reconciliation for a list of current medication. Thank you for allowing us to participate in the care of this patient. The impression and plan of care has been dictated by Kristi Law, Nurse Practitioner as directed. Dr. Sumaya MD I have performed a history and physical examination and medical decision making of this patient, discussed the same with the dictator, and agree with the dictators assessment and plan as written, documented as a scribe. Based on total visit time, I have performed more than 50% of this visit. Patient Condition at Discharge: Stable Plan - Discharge Summary Discharge Rx Participant: No New Discharge Prescriptions: New hydrALAZINE HCL [Apresoline] 25 mg PO TID #90 tab Darbepoetin [place] [Aranesp] 40 mcg SQ Q7D each Torsemide [Demadex] 40 mg PO DAILY #30 tab Empagliflozin [Jardiance] 25 mg PO DAILY #30 tablet amLODIPine [Norvasc] 10 mg PO DAILY #30 tab Docusate [Colace] 100 mg PO DAILY #30 cap HYDROcodone/APAP 5-325MG [Belle[place] 5-325] 1 each PO Q4HR PRN 4 Days #16 tab PRN Reason: Pain Aspirin 81 mg PO DAILY #30 tab Benzocaine/Menthol Lozeng [Cepacol lozenge] 1 each MUCOUS MEM Q4HR PRN lozenge PRN Reason: Cough Folic Acid-Vit B Complex-Vit C [Nephrocaps] 1 each PO DAILY #30 cap traMADol HCl [Ultram] 50 mg PO QID PRN 5 Days #20 tab PRN Reason: Breakthrough Pain Continue Clopidogrel [Plavix] 75 mg PO DAILY Calcium Acetate [PhosLo] 667 mg PO QID Rosuvastatin Calcium 40 mg PO HS Pantoprazole [Protonix] 40 mg PO DAILY Escitalopram [Lexapro] 20 mg PO DAILY carvediloL [Coreg] 3.125 mg PO BID Discontinued Torsemide [Demadex] 40 mg PO MOWEFRSA Discharge Medication List Calcium Acetate [PhosLo] 667 mg PO QID 03/11/22 [History] Clopidogrel [Plavix] 75 mg PO DAILY 03/11/22 [History] Escitalopram [Lexapro] 20 mg PO DAILY 03/11/22 [History] Pantoprazole [Protonix] 40 mg PO DAILY 03/11/22 [History] Rosuvastatin Calcium 40 mg PO HS 03/11/22 [History] carvediloL [Coreg] 3.125 mg PO BID 03/11/22 [History] Aspirin 81 mg PO DAILY #30 tab 03/24/22 [Rx] Benzocaine/Menthol Lozeng [Cepacol lozenge] 1 each MUCOUS MEM Q4HR PRN lozenge 03/24/22 [Rx] Darbepoetin [place] [Aranesp] 40 mcg SQ Q7D each 03/24/22 [Rx] Docusate [Colace] 100 mg PO DAILY #30 cap 03/24/22 [Rx] Empagliflozin [Jardiance] 25 mg PO DAILY #30 tablet 03/24/22 [Rx] Folic Acid-Vit B Complex-Vit C [Nephrocaps] 1 each PO DAILY #30 cap 03/24/22 [Rx] HYDROcodone/APAP 5-325MG [[place] 5-325] 1 each PO Q4HR PRN 4 Days #16 tab 03/24/22 [Rx] Torsemide [Demadex] 40 mg PO DAILY #30 tab 03/24/22 [Rx] amLODIPine [Norvasc] 10 mg PO DAILY #30 tab 03/24/22 [Rx] hydrALAZINE HCL [Apresoline] 25 mg PO TID #90 tab 03/24/22 [Rx] traMADol HCl [Ultram] 50 mg PO QID PRN 5 Days #20 tab 03/24/22 [Rx] Follow up Appointment(s)/Referral(s): Stella Gomez MD [STAFF PHYSICIAN] - 1 Week Pradeep Farias MD [STAFF PHYSICIAN] - 1 Week Brice Davila DO [Primary Care Provider] - 1-2 days Tee Pena DO [Doctor of Osteopathic Medicine] - 1 Week Maury Wilkinson MD [STAFF PHYSICIAN] - 1 Week Ambulatory/Diagnostic Orders: Basic Metabolic Panel [LAB.AMB] Time Frame: 2 Days, Location: None Selected Patient Instructions/Handouts: Pleural Effusion (DC), Hemodialysis (DC), How to Care for Your Chest or Abdominal Catheter (DC) Activity/Diet/Wound Care/Special Instructions: Home Care - [facility] [phone] Palliative Care - [facility] Palliative Care - [phone] Pleural Drainage bottles and supplies - [facility] [phone] (per customer service at [facility] insurance should cover supplies) DISCHARGE INSTRUCTIONS: 1. Home care is ordered, they will obtain new bottles. 2. May shower after 24 hours, no baths/hot tubs. 3. Do not drain more than 1 L or 1000 mL from the Pleurx catheter in 24 hours. 4. NEW drainage bottles needed with each drainage. 5. Drainage frequency dictated by the patient's symptoms, may be every day, every other day, weekly or as needed if the patient is symptomatic. 6. Please notify the nurse practitioner or surgeons office if temperature is greater than 101F, excessive pain at insertion site, drainage consistency changes to cloudy or smells bad, catheter falls out. 7. Contact surgery office with weekly drainage amount. May fax the amounts. 8. Once drainage is less than 50 mL 3 times in a row, notify the surgery office for possible removal. Surgery office phone number is [phone], fax number is [phone] The Nurse practitioner numbers: Bekah [phone], Marcell [phone]. Follow up nephrology and continue same hemodialysis schedule Thu//Thursday Follow up with your veneer press operator at [facility] Discharge Disposition: HOME WITH HOME HEALTH SERVICES
--- NOTE | 2022-03-26 08:35 | CDI ---
Documentation Clarification Form Date: 03/26/22 From: Li Pennington Admit Date: 03/11/2022 12:39:00 AM Patient Name: Aldo Turpin Visit Number: [id number] Discharge Date: 03/24/2022 5:24:00 PM ATTENTION: The Clinical Documentation Specialists (CDI) and [facility] Coding Staff appreciate your assistance in clarifying documentation. Please respond to the clarification below the line at the bottom and electronically sign. The CDI & [facility] Coding staff will review the response and follow-up if needed. Please note: Queries are made part of the Legal Health Record. If you have any questions, please contact the author of this message via ITS. Dr. Williams Shell, There is documentation of pleural effusions, predominantly on right per H&P, consults, PNs, procedure notes and DS. Additional clarification is requested. History/Risk Factors: HTN w acute/chronic diastolic CHF w ESRD on dialysis, acute hypoxic respiratory failure, hypertensive crisis, T2DM w CKD & foot ulcer, emphysema, exposure to asbestos Clinical Indicators: 03/14 PAP stain: Hypocellular specimen consisting of mainly blood. Nocytologically malignantcells identified. 03/21 PAP stain: Hypocellular specimen with scattered reactive mesothelial cells, macrophages and mixedinflammatorycells in a background of blood. No cytologically malignantcells identified. 03/21 Surg Path: Benign fibroadipose tissue and skeletal muscle with mild chronic inflammation, hemosiderin-laden histiocytes,fibrosis, fibrin and mild degenerative changes. Treatment: Two chest tubes, bronchoscopy w right sided assisted thoracoscopy with pleural biopsy, insertion of pleurX catheter. Can you please clarify the cause of pleural effusions? [ ] Pleural effusion due to asbestos [ ] Pleural effusion due to acute diastolic CHF [ ] Pleural effusion due to mesothelioma [ x ] Pleural effusion NOS [ ] Other, please specify [ ] Unable to determine MTDD
--- NOTE | 2022-03-26 08:55 | CDI ---
Documentation Clarification Form Date: 03/26/22 From: Li Pennington Admit Date: 03/11/2022 12:39:00 AM Patient Name: Aldo Turpin Visit Number: [id number] Discharge Date: 03/24/2022 5:24:00 PM ATTENTION: The Clinical Documentation Specialists (CDI) and [facility] Coding Staff appreciate your assistance in clarifying documentation. Please respond to the clarification below the line at the bottom and electronically sign. The CDI & [facility] Coding staff will review the response and follow-up if needed. Please note: Queries are made part of the Legal Health Record. If you have any questions, please contact the author of this message via ITS. Dr. Williams Shell, Pneumonia is documented in the H&P, PNs & DS. Additional clarification regarding the type of pneumonia is requested. History/Risk Factors: HTN W acute/chronic diastolic CHF w ESRD on dialysis, acute hypoxic respiratory failure, hypertensive crisis, T2DM w CKD & foot ulcer, emphysema, exposure to asbestos Clinical Indicators: Admitted with bilateral pleural effusions and bilateral pneumonia. WBC/Left shift: 9.6/8.0 03/10 CXR: Bilateralpneumoniaand moderate size rightpleural effusionwith loculation. Abnormalitiessignificantly increased on the right side compared to old exam. Follow-uprecommended. Considerpossibilities ofempyemaand mesothelioma. Lung/Breathing assessment: Endorses exertionaldyspnea, nonproductivecough. Bilateral lower lung field crackles appreciated. Hypoxicon room air down to 90%. Normoxic on 2 L nasal cannula. Treatment: IV Vancomycin O2 as needed Please clarify the type of pneumonia, if known: [ ] Bacterial Pneumonia, specify causal organism (if known) [ ] Gram Negative Bacterial Pneumonia [ ] Pneumonia (please specify) [ ] Other, please specify [ ] Unable to determine No pnuemonia MTDD
== END 2022-03-24 17:24 | disposition home health service (06) | DRG 166 ==
LOC: EC 19:04 → 3SCARD 03-11 00:39 → 5NMEDONC 03-13 22:57 → 3SCARD 03-21 19:46
PROVIDERS: ADMIT Family Medicine; ATTEND Family Medicine
PROC: 5A1D70Z Performance of Urinary Filtration, Intermittent, Less than 6 Hours Per Day (ICD-10-PCS; 2022-03-11)
PROC: 0W9930Z Drainage of Right Pleural Cavity with Drainage Device, Percutaneous Approach (ICD-10-PCS; 2022-03-14)
PROC: 0W9930Z Drainage of Right Pleural Cavity with Drainage Device, Percutaneous Approach (ICD-10-PCS; 2022-03-17)
PROC: 0BBN4ZX Excision of Right Pleura, Percutaneous Endoscopic Approach, Diagnostic (ICD-10-PCS; principal; 2022-03-21 12:15)
PROC: 0W9930Z Drainage of Right Pleural Cavity with Drainage Device, Percutaneous Approach (ICD-10-PCS; principal; 2022-03-21 12:15)
PROC: 0BJ08ZZ Inspection of Tracheobronchial Tree, Via Natural or Artificial Opening Endoscopic (ICD-10-PCS; principal; 2022-03-21 12:15)
DX: J90 Pleural effusion, not elsewhere classified (principal); I50.33 Acute on chronic diastolic (congestive) heart failure; J96.01 Acute respiratory failure with hypoxia; N18.6 End stage renal disease; J94.8 Other specified pleural conditions; I13.2 Hypertensive heart and chronic kidney disease with heart failure and with stage 5 chronic kidney disease, or end stage renal disease; J98.11 Atelectasis; I16.9 Hypertensive crisis, unspecified; L97.512 Non-pressure chronic ulcer of other part of right foot with fat layer exposed; D63.1 Anemia in chronic kidney disease; E83.9 Disorder of mineral metabolism, unspecified; E11.22 Type 2 diabetes mellitus with diabetic chronic kidney disease; E11.621 Type 2 diabetes mellitus with foot ulcer; J43.9 Emphysema, unspecified; Z99.2 Dependence on renal dialysis; Z20.822 Contact with and (suspected) exposure to COVID-19; I34.0 Nonrheumatic mitral (valve) insufficiency; I44.0 Atrioventricular block, first degree; F32.A Depression, unspecified; E78.5 Hyperlipidemia, unspecified; I25.10 Atherosclerotic heart disease of native coronary artery without angina pectoris; K59.00 Constipation, unspecified; L84 Corns and callosities; Z77.090 Contact with and (suspected) exposure to asbestos; Z79.02 Long term (current) use of antithrombotics/antiplatelets; Z79.899 Other long term (current) drug therapy; Z95.1 Presence of aortocoronary bypass graft; Z95.5 Presence of coronary angioplasty implant and graft; Z87.891 Personal history of nicotine dependence; Z88.5 Allergy status to narcotic agent
CPT/HCPCS: 32551; 36415; 64461; 71045; 71046; 71250; 71260; 76942; 80048; 80053; 82728; 82945; 83540; 83550; 83615; 83735; 83880; 84157; 84484; 85025; 85027; 85610; 85730; 86850; 86900; 86901; 87070; 87102; 87116; 87205; 87206; 87636; 88108; 88305; 89050; 90935; 93005; 93306; 94760; 96374; 99285

== ENCOUNTER 2022-05-04 19:45 | Inpatient (IN) | payer MEDICARE ==
--- NOTE | 2022-05-04 20:01 | ED ---
General Adult HPI - General Chief complaint: Shortness of Breath Stated complaint: MAIRA Time Seen by Provider: 05/04/22 19:55 Source: patient, EMS Mode of arrival: EMS Limitations: no limitations - History of Present Illness Initial comments: Patient presents to the ED by ambulance for evaluation. Patient states that he laid down to go to bed this evening (about an hour ago) when he developed dyspnea and had "trouble catching my breath". Patient has end-stage renal disease and is on hemodialysis MW. Patient states that he was last dialyzed on Thursday (2 days ago) and is due for dialysis again tomorrow. Patient also states that he has a right Pleurx catheter in place for a right pleural effusion, and he states that he has a home nurse who drains it periodically. Patient states that he last had his Pleurx catheter drainage yesterday, but he is concerned that the nurse may not have drained enough fluid from it. Patient denies feeling dyspneic currently. Patient admits to have a chronic and unchanged cough. Patient denies having any pain, fever or chills, headache, focal neuro deficit, chest pain, hemoptysis, palpitations, dizziness, nausea/vomiting/diaphoresis, abdominal pain, bloody or melanotic stool, leg swelling or pain, or any other symptoms or complaints. - Related Data Home Medications Medication Instructions Recorded Confirmed Calcium Acetate [PhosLo] 667 mg PO QID 03/11/22 05/04/22 Clopidogrel [Plavix] 75 mg PO DAILY 03/11/22 05/04/22 Escitalopram [Lexapro] 20 mg PO DAILY 03/11/22 05/04/22 Pantoprazole [Protonix] 40 mg PO DAILY 03/11/22 05/04/22 carvediloL [Coreg] 3.125 mg PO BID 03/11/22 05/04/22 HYDROcodone/APAP 5-325MG [[place] 1 tab PO Q4HR PRN 04/03/22 05/04/22 5-325] Folic Acid-Vit B Complex-Vit C 1 cap PO DAILY 05/04/22 05/04/22 [Nephrocaps] Ipratropium-Albuterol Nebulize 3 ml INHALATION RT-QID PRN 05/04/22 05/04/22 [Duoneb 0.5 mg-3 mg/3 ml Soln] Lidocaine 5% Patch [Lidoderm] 1 patch TOPICAL DAILY PRN 05/04/22 05/04/22 Previous Rx's Medication Instructions Recorded Aspirin 81 mg PO DAILY #30 tab 03/24/22 Empagliflozin [Jardiance] 25 mg PO DAILY #30 tablet 03/24/22 Torsemide [Demadex] 40 mg PO DAILY #30 tab 03/24/22 amLODIPine [Norvasc] 10 mg PO DAILY #30 tab 03/24/22 traMADol HCl [Ultram] 50 mg PO QID PRN 5 Days #20 tab 03/24/22 Allergies Allergy/AdvReac Type Severity Reaction Status Date / Time cephalexin [From Keflex] Allergy Rash/Hives Verified 05/04/22 22:10 codeine Allergy Rash/Hives Verified 05/04/22 22:10 atorvastatin AdvReac ACHES AND Verified 05/04/22 22:10 WEAKNESS lisinopril AdvReac DRY COUGH Verified 05/04/22 22:10 metoprolol AdvReac DRY COUGH Verified 05/04/22 22:10 rosuvastatin [From Crestor] AdvReac ACHES AND Verified 05/04/22 22:10 WEAKNESS Review of Systems ROS Statement: Those systems with pertinent positive or pertinent negative responses have been documented in the HPI. ROS Other: All systems not noted in ROS Statement are negative. Past Medical History Past Medical History: Coronary Artery Disease (CAD), Diabetes Mellitus, Dialysis, Hyperlipidemia, Hypertension, Memory Impairment, Renal Disease Additional Past Medical History / Comment(s): CABG, Cataracts; recurrent bilateral pleural effusions History of Any Multi-Drug Resistant Organisms: None Reported Past Surgical History: Adenoidectomy, Tonsillectomy Additional Past Surgical History / Comment(s): 6 vessel coronary bypass, bilateral cataract surgery, left arm hemodialysis AV fistula; right-sided Pleurx catheter placed 03/21/22 Past Anesthesia/Blood Transfusion Reactions: No Reported Reaction Past Psychological History: Depression Smoking Status: Former smoker Past Alcohol Use History: None Reported Past Drug Use History: None Reported - Past Family History Daughter(s) Family Medical History: No Reported History General Exam Limitations: no limitations General appearance: alert, in no apparent distress Head exam: Present: atraumatic, normocephalic Eye exam: Present: normal appearance ENT exam: Present: mucous membranes moist Neck exam: Present: other (Trachea is in midline) Respiratory exam: Present: other (Decreased breath sounds at right lung base with scattered crackles). Absent: respiratory distress, wheezes, stridor Cardiovascular Exam: Present: regular rate, normal rhythm, normal heart sounds, other (Normal radial pulses bilaterally) GI/Abdominal exam: Present: soft. Absent: distended, tenderness, guarding Extremities exam: Present: other (Negative Homans sign bilaterally; left forearm fistula with palpable thrill). Absent: tenderness, pedal edema, calf tenderness Neurological exam: Present: alert, oriented X3 Psychiatric exam: Present: normal affect, normal mood Skin exam: Present: warm, dry, intact, normal color Course Vital Signs 05/04/22 05/04/22 05/04/22 19:53 19:59 20:00 Temperature 97.9 F Pulse Rate 63 63 Respiratory 18 17 Rate Blood Pressure 204/87 204/87 O2 Sat by Pulse 100 100 Oximetry 05/04/22 05/04/22 05/04/22 20:15 20:30 20:45 Temperature Pulse Rate 58 L 64 Respiratory 18 Rate Blood Pressure 193/78 193/83 193/83 O2 Sat by Pulse 100 100 100 Oximetry 05/04/22 05/04/22 05/04/22 21:00 21:30 22:00 Temperature Pulse Rate Respiratory 18 17 Rate Blood Pressure 154/88 195/97 195/81 O2 Sat by Pulse 100 100 100 Oximetry - Reevaluation(s) Reevaluation #1: 05/04/22 22:37 Patient denies development of any new symptoms while in the ED. Patient remains alert and breathing comfortably. Patient and daughter are aware the patient's test results. Patient's daughter reports that the patient is not on home O2, and given the patient's oxygen requirement in the ED, they both agree with hospital admission at this time. 05/04/22 22:58 Case, H&P and test results were discussed with Dr. Isaak Amaya. He accepts hospital admission. He agrees with nephrology and pulmonology consultations. He has no further recommendations at this time. EKG Findings - EKG Comments: EKG Findings:: ED physician interpretation: Normal sinus rhythm, occasional PVCs, ventricular rate of 60 bpm, nonspecific intraventricular conduction delay, normal CA interval, QRS duration of 123 ms, normal QT interval, borderline leftward axis, no definite ST or T-wave abnormality Medical Decision Making - Medical Decision Making Was pt. sent in by a medical professional or institution (, PA, DIRECTOR FOOD AND BEVERAGE, urgent care, hospital, or skilled nursing...) When possible be specific @ -No Did you speak to anyone other than the patient for history (EMS, parent, family, police, friend...)? What history was obtained from this source @ -No Did you review nursing and triage notes (agree or disagree)? Why? @ -I reviewed and agree with nursing and triage notes Were old charts reviewed (outside hosp., previous admission, EMS record, old EKG, old radiological studies, urgent care reports/EKG's, skilled nursing records)? Report findings @ -No old charts were reviewed Differential Diagnosis (chest pain, altered mental status, abdominal pain women, abdominal pain men, vaginal bleeding, weakness, fever, dyspnea, syncope, head ache, dizziness, GI bleed, back pain, seizure, CVA, palpatations, mental health, musculoskeletal)? @ -Differential Dyspnea: Coronary syndrome, arrhythmia, tamponade, asthma, COPD, pneumonia, pneumothorax, pleural effusion, anaphylaxis, anemia, neuromuscular, this is not meant to be an all-inclusive list. EKG interpreted by me (3pts min.). @ -As above X-rays interpreted by me (1pt min.). @ -Chest x-ray was reviewed myself, and agree with the radiologist's interpretation as above. CT interpreted by me (1pt min.). @ -None done U/S interpreted by me (1pt. min.). @ -None done What testing was considered but not performed or refused? (CT, X-rays, U/S, labs)? Why? @ -None What meds were considered but not given or refused? Why? @ -None Did you discuss the management of the patient with other professionals (professionals i.e. , PA, [employer], lab, RT, psych nurse, director of social services, respiratory care program director, teacher, corporate responsibility officer, cyanide case hardener)? Give summary @ -As above. Was smoking cessation discussed for >3mins.? @ -No Was critical care preformed (if so, how long)? @ -No Were there social determinants of health that impacted care today? How? (Homelessness, low income, unemployed, alcoholism, drug addiction, transportation, low edu. Level, literacy, decrease access to med. care, intermediate, rehab)? @ -No Was there de-escalation of care discussed even if they declined (Discuss DNR or withdrawal of care, Hospice)? DNR status @ -No What co-morbidities impacted this encounter? (DM, HTN, Smoking, COPD, CAD, Cancer, CVA, ARF, Chemo, Hep., AIDS, mental health diagnosis, sleep apnea, morbid obesity)? @ -End-stage renal disease on hemodialysis Was patient admitted / discharged? Hospital course, mention meds given and rou te, prescriptions, significant lab abnormalities, going to OR and other pertinent info. @ -Patient is requiring supplemental oxygen in the ED to maintain normal oxygen saturation, and he is not on home O2. Patient denies having any chest pain. Patient's troponin is within normal limits. Patient's chest x-ray demonstrates progressing opacities and a stable right pleural effusion. I do not suspect an infectious etiology given the patient is afebrile and without leukocytosis. Patient's daughter reports that the patient is currently being worked up for mesothelioma. Patient has end-stage renal disease, and he is due for hemodialysis tomorrow. Patient's blood pressure readings have been elevated in the ED and IV hydralazine has been ordered for the patient. Will admit the patient to the hospital at this time. Dr. Isaak Amaya has accepted hospital admission. Undiagnosed new problem with uncertain prognosis? @ -No Drug Therapy requiring intensive monitoring for toxicity (Heparin, Nitro, Insulin, Cardizem)? @ -No Were any procedures done? @ -No Diagnosis/symptom? @ -Dyspnea and hypoxia Acute, or Chronic, or Acute on Chronic? @ -Acute Uncomplicated (without systemic symptoms) or Complicated (systemic symptoms)? @ -default Side effects of treatment? @ -No Exacerbation, Progression, or Severe Exacerbation? @ -No Poses a threat to life or bodily function? How? (Chest pain, [place], NH, pneumonia, PE, COPD, DKA, ARF, appy, cholecystitis, CVA, Diverticulitis, Homicidal, Suicidal, threat to staff... and all critical care pts) @ -No Diagnosis/symptom? @ -Right pleural effusion Acute, or Chronic, or Acute on Chronic? @ -Chronic Uncomplicated (without systemic symptoms) or Complicated (systemic symptoms)? @ -default Side effects of treatment? @ -none Exacerbation, Progression, or Severe Exacerbation @ -no Poses a threat to life or bodily function? @ -no Diagnosis/symptom? @ -Chronic renal failure Acute, or Chronic, or Acute on Chronic? @ -Chronic Uncomplicated (without systemic symptoms) or Complicated (systemic symptoms)? @ -default Side effects of treatment? @ -none Exacerbation, Progression, or Severe Exacerbation] @ -no Poses a threat to life or bodily function? @ -no Diagnosis/symptom? @ -Pulmonary infiltrates Acute, or Chronic, or Acute on Chronic? @ -Acute on chronic Uncomplicated (without systemic symptoms) or Complicated (systemic symptoms)? @ -default Side effects of treatment? @ -none Exacerbation, Progression, or Severe Exacerbation] @ -no Poses a threat to life or bodily function? @ -no Diagnosis/symptom? @ -Hypertension Acute, or Chronic, or Acute on Chronic? @ -Acute on chronic Uncomplicated (without systemic symptoms) or Complicated (systemic symptoms)? @ -default Side effects of treatment? @ -none Exacerbation, Progression, or Severe Exacerbation] @ -no Poses a threat to life or bodily function? @ -no - Lab Data Result diagrams: 05/04/22 20:16 05/04/22 20:16 Lab Results 05/04/22 05/04/22 05/04/22 Range/Units 20:16 20:16 20:16 WBC 5.7 (3.8-10.6) k/uL RBC 2.74 L (4.30-5.90) m/uL Hgb 8.5 L (13.0-17.5) gm/dL Hct 26.7 L (39.0-53.0) % MCV 97.2 (80.0-100.0) fL MCH 31.1 (25.0-35.0) pg MCHC 32.1 (31.0-37.0) g/dL RDW 16.4 H (11.5-15.5) % Plt Count 164 (150-450) k/uL MPV 9.4 Neutrophils % 65 % Lymphocytes % 15 % Monocytes % 12 % Eosinophils % 5 % Basophils % 1 % Neutrophils # 3.7 (1.3-7.7) k/uL Lymphocytes # 0.8 L (1.0-4.8) k/uL Monocytes # 0.7 (0-1.0) k/uL Eosinophils # 0.3 (0-0.7) k/uL Basophils # 0.1 (0-0.2) k/uL Manual Slide Review Performed Hypochromasia Slight Anisocytosis Slight Macrocytosis Slight PT 11.5 (9.0-12.0) sec INR 1.1 (<1.2) APTT 23.0 (22.0-30.0) sec Sodium 135 L (137-145) mmol/L Potassium 4.7 (3.5-5.1) mmol/L Chloride 97 L (98-107) mmol/L Carbon Dioxide 28 (22-30) mmol/L Anion Gap 10 mmol/L BUN 28 H (9-20) mg/dL Creatinine 5.45 H (0.66-1.25) mg/dL Est GFR (CKD-EPI)AfAm 11 (>60 ml/min/1.73 sqM) Est GFR (CKD-EPI)NonAf 10 (>60 ml/min/1.73 sqM) Glucose 191 H (74-99) mg/dL Calcium 8.6 (8.4-10.2) mg/dL Total Bilirubin 0.6 (0.2-1.3) mg/dL AST 19 (17-59) U/L ALT 12 (4-49) U/L Alkaline Phosphatase 86 (38-126) U/L Troponin I (0.000-0.034) ng/mL NT-Pro-B Natriuret Pep pg/mL Total Protein 6.5 (6.3-8.2) g/dL Albumin 3.3 L (3.5-5.0) g/dL 05/04/22 05/04/22 Range/Units 20:16 20:16 WBC (3.8-10.6) k/uL RBC (4.30-5.90) m/uL Hgb (13.0-17.5) gm/dL Hct (39.0-53.0) % MCV (80.0-100.0) fL MCH (25.0-35.0) pg MCHC (31.0-37.0) g/dL RDW (11.5-15.5) % Plt Count (150-450) k/uL MPV Neutrophils % % Lymphocytes % % Monocytes % % Eosinophils % % Basophils % % Neutrophils # (1.3-7.7) k/uL Lymphocytes # (1.0-4.8) k/uL Monocytes # (0-1.0) k/uL Eosinophils # (0-0.7) k/uL Basophils # (0-0.2) k/uL Manual Slide Review Hypochromasia Anisocytosis Macrocytosis PT (9.0-12.0) sec INR (<1.2) APTT (22.0-30.0) sec Sodium (137-145) mmol/L Potassium (3.5-5.1) mmol/L Chloride (98-107) mmol/L Carbon Dioxide (22-30) mmol/L Anion Gap mmol/L BUN (9-20) mg/dL Creatinine (0.66-1.25) mg/dL Est GFR (CKD-EPI)AfAm (>60 ml/min/1.73 sqM) Est GFR (CKD-EPI)NonAf (>60 ml/min/1.73 sqM) Glucose (74-99) mg/dL Calcium (8.4-10.2) mg/dL Total Bilirubin (0.2-1.3) mg/dL AST (17-59) U/L ALT (4-49) U/L Alkaline Phosphatase (38-126) U/L Troponin I 0.016 (0.000-0.034) ng/mL NT-Pro-B Natriuret Pep 42467 pg/mL Total Protein (6.3-8.2) g/dL Albumin (3.5-5.0) g/dL - Radiology Data Chest x-ray: 1. Intervally progressed left basilar airspace opacities from 04/24/2022. Conc erning for worsening infection versus aspiration. 2. Persistent small right pleural effusion and right airspace opacities. 3. Right Pleurx catheter in appropriate position. Disposition Clinical Impression: Chronic renal failure, Dyspnea, Pleural effusion, right, Pulmonary infiltrates, Hypertension, Hypoxia Disposition: ADMITTED IP TO THIS HOSP Condition: Stable Is patient prescribed a controlled substance at d/c from ED?: No Referrals: None,Stated [REFERRING] - 1-2 days Time of Disposition: 22:59
[2022-05-04 20:36] LABS: Anisocytosis Slight; Basophils # (A) 0.1 k/uL (0-0.2); Basophils % (A) 1 %; Eosinophils # (A) 0.3 k/uL (0-0.7); Eosinophils % (A) 5 %; HCT 26.7 % (39.0-53.0); HGB 8.5 gm/dL (13.0-17.5); Hypochromasia Slight; Lymphocytes # (A) 0.8 k/uL (1.0-4.8); Lymphocytes % (A) 15 %; MCH 31.1 pg (25.0-35.0); MCHC 32.1 g/dL (31.0-37.0); MCV 97.2 fL (80.0-100.0); Macrocytosis Slight; Mean Platelet Volume 9.4; Monocytes # (A) 0.7 k/uL (0-1.0); Monocytes % (A) 12 %; Neutrophils # (A) 3.7 k/uL (1.3-7.7); Neutrophils % (A) 65 %; RBC 2.74 m/uL (4.30-5.90); RDW 16.4 % (11.5-15.5); WBC 5.7 k/uL (3.8-10.6)
[2022-05-04 20:52] LABS: Albumin 3.3 g/dL (3.5-5.0); Calcium 8.6 mg/dL (8.4-10.2); INR 1.1 (<1.2); Potassium 4.7 mmol/L (3.5-5.1); Prothrombin Time 11.5 sec (9.0-12.0); Total Bilirubin 0.6 mg/dL (0.2-1.3); Total Protein 6.5 g/dL (6.3-8.2)
--- NOTE | 2022-05-04 21:01 | XR ---
EXAMINATION TYPE: XR chest 2V DATE OF EXAM: 05/04/2022 8:36 PM COMPARISON: Chest x-ray 04/24/2022 TECHNIQUE: XR chest 2V . CLINICAL INDICATION:Male, 72 years old with history of difficulty breathing; FINDINGS: Lungs/Pleura: Redemonstration of bibasilar airspace opacities. Left airspace opacities are intervally progressed from 04/24/2022. No significant interval change within the right airspace opacities when ac counting for difference in technique. Persistent small right pleural effusion. Pulmonary vascularity: Unremarkable. Heart/mediastinum: Cardiomediastinal silhouette is enlarged and stable. Sternotomy wires and other p ostoperative changes are present in the mediastinum. Musculoskeletal: Multiple level degenerative disc disease changes seen throughout the spine. Other findings: Right Pleurx catheter in appropriate position. IMPRESSION: 1. Intervally progressed left basilar airspace opacities from 04/24/2022. Concerning for worsening infe ction versus aspiration. 2. Persistent small right pleural effusion and right airspace opacities. 3. Right Pleurx catheter in appropriate position.
[2022-05-04 21:26] LABS: Platelet Count 164 k/uL (150-450)
[2022-05-04] MEDS ORDERED: hydrALAZINE HCL 20 MG/ML 1 ML VIAL IVP STA (22:39)
[2022-05-04] MEDS ORDERED: NALOXONE 0.4 MG/ML 1 ML VIAL IV PRN (22:59)
[2022-05-05] MEDS ORDERED: hydrALAZINE HCL 20 MG/ML 1 ML VIAL IVP PRN (01:44)
[2022-05-05] MEDS ORDERED: HYDROcodone/APAP 5-325MG 1 EACH TAB PO PRN (01:45)
[2022-05-05] MEDS ORDERED: ALBUTEROL HFA INHALER INHALATION PRN (01:45)
[2022-05-05] MEDS: PANTOPRAZOLE 40 MG TABLET PO SCH (05:21)
[2022-05-05 06:17] LABS: Anisocytosis Slight; Basophils # (A) 0.1 k/uL (0-0.2); Basophils % (A) 1 %; Eosinophils # (A) 0.3 k/uL (0-0.7); Eosinophils % (A) 3 %; HCT 29.6 % (39.0-53.0); HGB 9.7 gm/dL (13.0-17.5); Hypochromasia Slight; Lymphocytes # (A) 0.6 k/uL (1.0-4.8); Lymphocytes % (A) 8 %; MCH 32.1 pg (25.0-35.0); MCHC 32.9 g/dL (31.0-37.0); MCV 97.8 fL (80.0-100.0); Macrocytosis Slight; Mean Platelet Volume 8.1; Monocytes # (A) 0.5 k/uL (0-1.0); Monocytes % (A) 6 %; Neutrophils # (A) 6.6 k/uL (1.3-7.7); Neutrophils % (A) 82 %; Platelet Count 171 k/uL (150-450); RBC 3.03 m/uL (4.30-5.90); RDW 16.4 % (11.5-15.5); WBC 8.1 k/uL (3.8-10.6)
[2022-05-05 06:21] LABS: Albumin 3.3 g/dL (3.5-5.0); Calcium 8.8 mg/dL (8.4-10.2); Potassium 4.5 mmol/L (3.5-5.1); Total Bilirubin 0.7 mg/dL (0.2-1.3); Total Protein 6.5 g/dL (6.3-8.2)
[2022-05-05] MEDS: TORSEMIDE 20 MG TAB PO SCH (08:06)
[2022-05-05] MEDS: FOLIC ACID-VIT B COMPLEX-VIT C 1 CAP PO SCH (08:06)
[2022-05-05] MEDS: CLOPIDOGREL 75 MG TAB PO SCH (08:07)
[2022-05-05] MEDS: ESCITALOPRAM 20 MG TAB PO SCH (08:07)
[2022-05-05] MEDS: amLODIPine 10 MG TAB PO SCH (08:07)
[2022-05-05] MEDS: DAPAGLIFLOZIN PROPANEDIOL 10 MG TABLET PO SCH (08:07)
[2022-05-05] MEDS: ASPIRIN 81 MG PO SCH (08:07)
[2022-05-05] MEDS: CALCIUM ACETATE 667 MG TAB PO SCH ×4 (08:07→20:12)
[2022-05-05] MEDS: carvediloL 3.125 MG TAB PO SCH ×2 (08:07→20:13)
--- NOTE | 2022-05-05 11:32 | P.NPCON ---
History of Present Illness - Reason for Consult end stage renal disease - History of Present Illness Patient is a 72-year-old male with history of end-stage renal disease currently maintained on hemodialysis on a Thursday schedule. Patient was admitted to the hospital with complaints of shortness of breath. No history of fever or chills. Patient has a right Pleurx catheter for chronic right pleural effusion. Patient has not missed any of his dialysis treatments as outpatient. He is currently maintained on nasal cannula and states he is feeling slightly better. Recent diagnosis of the lung cancer/mesothelioma, details not available Past Medical History Past Medical History: Coronary Artery Disease (CAD), Diabetes Mellitus, Dialysis, Hyperlipidemia, Hypertension, Memory Impairment, Renal Disease Additional Past Medical History / Comment(s): CABG, Cataracts; recurrent bilateral pleural effusions History of Any Multi-Drug Resistant Organisms: None Reported Past Surgical History: Adenoidectomy, Tonsillectomy Additional Past Surgical History / Comment(s): 6 vessel coronary bypass, bilateral cataract surgery, left arm hemodialysis AV fistula; right-sided Pleurx catheter placed 03/21/22 Past Anesthesia/Blood Transfusion Reactions: No Reported Reaction Past Psychological History: Depression Smoking Status: Former smoker Past Alcohol Use History: None Reported Past Drug Use History: None Reported - Past Family History Daughter(s) Family Medical History: No Reported History Medications and Allergies Home Medications Medication Instructions Recorded Confirmed Type Calcium Acetate [PhosLo] 667 mg PO QID 03/11/22 05/04/22 History Clopidogrel [Plavix] 75 mg PO DAILY 03/11/22 05/04/22 History Escitalopram [Lexapro] 20 mg PO DAILY 03/11/22 05/04/22 History Pantoprazole [Protonix] 40 mg PO DAILY 03/11/22 05/04/22 History carvediloL [Coreg] 3.125 mg PO BID 03/11/22 05/04/22 History Aspirin 81 mg PO DAILY #30 tab 03/24/22 05/04/22 Rx Empagliflozin [Jardiance] 25 mg PO DAILY #30 tablet 03/24/22 05/04/22 Rx Torsemide [Demadex] 40 mg PO DAILY #30 tab 03/24/22 05/04/22 Rx amLODIPine [Norvasc] 10 mg PO DAILY #30 tab 03/24/22 05/04/22 Rx traMADol HCl [Ultram] 50 mg PO QID PRN 5 Days #20 tab 03/24/22 05/04/22 Rx HYDROcodone/APAP 5-325MG [[place] 1 tab PO Q4HR PRN 04/03/22 05/04/22 History 5-325] Folic Acid-Vit B Complex-Vit C 1 cap PO DAILY 05/04/22 05/04/22 History [Nephrocaps] Ipratropium-Albuterol Nebulize 3 ml INHALATION RT-QID PRN 05/04/22 05/04/22 History [Duoneb 0.5 mg-3 mg/3 ml Soln] Lidocaine 5% Patch [Lidoderm] 1 patch TOPICAL DAILY PRN 05/04/22 05/04/22 History Allergies Allergy/AdvReac Type Severity Reaction Status Date / Time cephalexin [From Keflex] Allergy Rash/Hives Verified 05/04/22 22:10 codeine Allergy Rash/Hives Verified 05/04/22 22:10 atorvastatin AdvReac ACHES AND Verified 05/04/22 22:10 WEAKNESS lisinopril AdvReac DRY COUGH Verified 05/04/22 22:10 metoprolol AdvReac DRY COUGH Verified 05/04/22 22:10 rosuvastatin [From Crestor] AdvReac ACHES AND Verified 05/04/22 22:10 WEAKNESS Physical Exam Vitals: Vital Signs Temp Pulse Pulse Resp BP BP Pulse Ox 05/05/22 08:05 19 05/05/22 07:11 98.1 F 68 18 173/68 96 05/05/22 05:39 97.4 F L 72 19 168/69 98 05/05/22 03:52 75 216/92 95 05/05/22 01:20 97.8 F 70 19 206/86 99 05/05/22 00:00 69 20 187/83 99 05/04/22 23:00 190/92 97 05/04/22 22:30 187/82 99 05/04/22 22:00 17 195/81 100 05/04/22 21:30 18 195/97 100 05/04/22 21:00 154/88 100 05/04/22 20:45 193/83 100 05/04/22 20:30 64 193/83 100 05/04/22 20:15 58 L 18 193/78 100 05/04/22 20:00 63 17 100 05/04/22 19:59 97.9 F 05/04/22 19:53 63 18 100 Intake and Output 05/04/22 05/05/22 05/05/22 22:59 06:59 14:59 Other: # Voids 1 Weight 106.594 kg 106.594 kg Patient is awake, comfortable, no acute distress Examination of the heart S1 and S2 Examination the lungs bilateral breath sounds are heard, decreased breath sounds on the right side Abdomen is soft nontender Examination lower extremities shows 1+ edema bilaterally [employer]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 End-stage renal disease on hemodialysis on a Thursday greg hadley 2. Volume overload 3. Chronic right pleural effusion with Pleurx catheter with possible diagnosis of lung cancer, details not available.? Mesothelioma 4. CK D mineral bone disorder 5. Hypertension with CK D stage V Plan: Hemodialysis today with UF of about 2-3 L as tolerated Continue with phosphate binders Continue with oral diuretics as patient has urine output.
[2022-05-05 11:33] LABS: Glucose,Whole Blood 187 mg/dL (70-110)
--- NOTE | 2022-05-05 13:11 | P.CNPUL ---
History of Present Illness Consult date: 05/05/22 Requesting physician: Isaak Amaya Reason for consult: dyspnea, abnormal CXR/CT Chief complaint: Shortness of breath History of present illness: This is a pleasant 72-year-old male patient with a known history of coronary artery disease with previous coronary artery bypass grafting, end-stage renal disease receiving hemodialysis on Thursday, recurrent pleural effusions with subsequent Pleurx catheter placement on 03/21/2022, former smoker, hypertension, hyperlipidemia. Pleural biopsies during Pleurx catheter placement on 03/24/2022 revealed no malignancy. Recent PET scan from 04/25/2022 revealed no suspicious radiotracer activity. He presented here again to the emergency room yesterday with complaints of increasing shortness of breath and concerns regarding Pleurx catheter being drained effectively. Chest x-ray reveals interval progression of left basilar airspace opacities compared to 04/24/2022. Persistent right small pleural effusion. Right Pleurx catheter in appropriate position. White count 8.1. Hemoglobin 9.7. Sodium 137. Potassium 4.5. BUN 29. Creatinine 5.92. Glucose 157. ProBNP 89,200. He is seen today in consultation on the regular medical floor. He is currently sitting up in bed. Awake and alert in no acute distress. He is maintaining good O2 saturations in the high 90s on 4 L/m per nasal cannula. He's been afebrile. Somewhat hypertensive. Plan is for hemodialysis with ultrafiltration with 2-3 L tolerated. Review of Systems REVIEW OF SYSTEMS: CONSTITUTIONAL: Denies any recent significant weight loss or weight gain. EYES: Denies change in vision. EARS, NOSE, MOUTH, THROAT: Denies headaches, denies sore throat. CARDIOVASCULAR: Denies chest pain, palpitations or syncopal episodes. RESPIRATORY: Positive for shortness of breath, no cough, congestion or hemoptysis. GASTROINTESTINAL: Denies change in appetite, denies abdominal pain GENITOURINARY: Denies hematuria, denies infections. MUSKULOSKELETAL: Denies pain, denies swelling. INTEGUMENTARY: Denies rash, denies eczema. NEUROLOGICAL: Denies recent memory loss, no recent seizure activity. PSYCHIATRIC: Denies anxiety, denies depression. HEMATOLOGIC/LYMPHATIC: Denies anemia, denies enlarged lymph nodes. Past Medical History Past Medical History: Coronary Artery Disease (CAD), Diabetes Mellitus, Janae lysis, Hyperlipidemia, Hypertension, Memory Impairment, Renal Disease Additional Past Medical History / Comment(s): CABG, Cataracts; recurrent bilateral pleural effusions History of Any Multi-Drug Resistant Organisms: None Reported Past Surgical History: Adenoidectomy, Tonsillectomy Additional Past Surgical History / Comment(s): 6 vessel coronary bypass, bilateral cataract surgery, left arm hemodialysis AV fistula; right-sided Pleurx catheter placed 03/21/22 Past Anesthesia/Blood Transfusion Reactions: No Reported Reaction Past Psychological History: Depression Smoking Status: Former smoker Past Alcohol Use History: None Reported Past Drug Use History: None Reported - Past Family History Daughter(s) Family Medical History: No Reported History Medications and Allergies Home Medications Medication Instructions Recorded Confirmed Type Calcium Acetate [PhosLo] 667 mg PO QID 03/11/22 05/04/22 History Clopidogrel [Plavix] 75 mg PO DAILY 03/11/22 05/04/22 History Escitalopram [Lexapro] 20 mg PO DAILY 03/11/22 05/04/22 History Pantoprazole [Protonix] 40 mg PO DAILY 03/11/22 05/04/22 History carvediloL [Coreg] 3.125 mg PO BID 03/11/22 05/04/22 History Aspirin 81 mg PO DAILY #30 tab 03/24/22 05/04/22 Rx Empagliflozin [Jardiance] 25 mg PO DAILY #30 tablet 03/24/22 05/04/22 Rx Torsemide [Demadex] 40 mg PO DAILY #30 tab 03/24/22 05/04/22 Rx amLODIPine [Norvasc] 10 mg PO DAILY #30 tab 03/24/22 05/04/22 Rx traMADol HCl [Ultram] 50 mg PO QID PRN 5 Days #20 tab 03/24/22 05/04/22 Rx HYDROcodone/APAP 5-325MG [[place] 1 tab PO Q4HR PRN 04/03/22 05/04/22 History 5-325] Folic Acid-Vit B Complex-Vit C 1 cap PO DAILY 05/04/22 05/04/22 History [Nephrocaps] Ipratropium-Albuterol Nebulize 3 ml INHALATION RT-QID PRN 05/04/22 05/04/22 H istory [Duoneb 0.5 mg-3 mg/3 ml Soln] Lidocaine 5% Patch [Lidoderm] 1 patch TOPICAL DAILY PRN 05/04/22 05/04/22 History Allergies Allergy/AdvReac Type Severity Reaction Status Date / Time cephalexin [From Keflex] Allergy Rash/Hives Verified 05/04/22 22:10 codeine Allergy Rash/Hives Verified 05/04/22 22:10 atorvastatin AdvReac ACHES AND Verified 05/04/22 22:10 WEAKNESS lisinopril AdvReac DRY COUGH Verified 05/04/22 22:10 metoprolol AdvReac DRY COUGH Verified 05/04/22 22:10 rosuvastatin [From Crestor] AdvReac ACHES AND Verified 05/04/22 22:10 WEAKNESS Physical Exam Vitals: Vital Signs Temp Pulse Pulse Resp BP BP Pulse Ox 05/05/22 08:05 19 05/05/22 07:11 98.1 F 68 18 173/68 96 05/05/22 05:39 97.4 F L 72 19 168/69 98 05/05/22 03:52 75 216/92 95 05/05/22 01:20 97.8 F 70 19 206/86 99 05/05/22 00:00 69 20 187/83 99 05/04/22 23:00 190/92 97 05/04/22 22:30 187/82 99 05/04/22 22:00 17 195/81 100 05/04/22 21:30 18 195/97 100 05/04/22 21:00 154/88 100 05/04/22 20:45 193/83 100 05/04/22 20:30 64 193/83 100 05/04/22 20:15 58 L 18 193/78 100 05/04/22 20:00 63 17 204/87 100 05/04/22 19:59 97.9 F 05/04/22 19:53 63 18 204/87 100 Intake and Output 05/04/22 05/05/22 05/05/22 22:59 06:59 14:59 Other: # Voids 1 Weight 106.594 kg 106.594 kg GENERAL EXAM: Alert, active, pleasant 72-year-old male, on 4 L nasal cannula, comfortable in no apparent distress. HEAD: Normocephalic. EYES: Normal reaction of pupils, equal size. NOSE: Clear with pink turbinates. THROAT: No erythema or exudates. NECK: No masses, no JVD. CHEST: No chest wall deformity. Right sided Pleurx catheter secured in place. LUNGS: Equal air entry with few scattered crackles, diminished in the right base. CVS: S1 and S2 normal with no audible murmur, regular rhythm. ABDOMEN: No hepatosplenomegaly, normal bowel sounds, no guarding or rigidity. SPINE: No scoliosis or deformity SKIN: No rashes CENTRAL NERVOUS SYSTEM: No focal deficits, tone is normal in all 4 extremities. EXTREMITIES: Left upper extremity with AV fistula There is no peripheral edema. No clubbing, no cyanosis. Peripheral pulses are intact. Results - Laboratory Findings CBC and BMP: 05/05/22 05:48 05/05/22 05:48 PT/INR, D-dimer PT 11.5 sec (9.0-12.0) 05/04/22 20:16 INR 1.1 (<1.2) 05/04/22 20:16 Abnormal lab findings: Abnormal Labs 05/04/22 05/04/22 05/05/22 20:16 20:16 05:48 RBC 2.74 L 3.03 L Hgb 8.5 L 9.7 L Hct 26.7 L 29.6 L RDW 16.4 H 16.4 H Lymphocytes # 0.8 L 0.6 L Sodium 135 L Chloride 97 L BUN 28 H Creatinine 5.45 H Glucose 191 H POC Glucose (mg/dL) Albumin 3.3 L 05/05/22 05/05/22 05:48 11:31 RBC Hgb Hct RDW Lymphocytes # Sodium Chloride BUN 29 H Creatinine 5.92 H Glucose 157 H POC Glucose (mg/dL) 187 H Albumin 3.3 L - Diagnostic Findings Chest x-ray: image reviewed Assessment and Plan Assessment: Acute hypoxic respiratory failure secondary to fluid volume overload. No clear evidence of pneumonia. ProCalcitonin pending History of end-stage renal disease receiving hemodialysis Thursday schedule via left upper extremity AV fistula History of recurrent right-sided pleural effusion status post Pleurx catheter placement 03/21/2022. Pathology was negative for malignancy. PET scan 04/27/2022 revealed no radiotracer uptake History of coronary disease with previous coronary artery bypass grafting Diabetes mellitus Hyperlipidemia Hypertension History of depression Former smoker Plan: The patient was seen and evaluated Chest x-ray, labs and medications reviewed Procalcitonin pending To receive hemodialysis today with a goal 2-3 L as tolerated Continue diuretics Titrate the FiO2 as tolerated Follow-up chest x-ray in a.m. We will continue to follow and make further recommendations based on his clinical status I have personally seen and examined the patient, performed the documentation and the assessment and plan as written. Number of minutes spent on the visit: 20.
[2022-05-05 20:54] LABS: Glucose,Whole Blood 199 mg/dL (70-110)
--- NOTE | 2022-05-05 23:49 | CT ---
EXAMINATION TYPE: CT chest wo con DATE OF EXAM: 05/05/2022 COMPARISON: 04/25/2022 PET/CT scan HISTORY: SOB CT DLP: 780.4 mGycm Automated exposure control for dose reduction was used. Images obtained from the diaphragm to the thoracic inlet with no contrast. There is bilateral pleural effusion. There is right-sided posterior chest tube. There is consolidatio n and atelectasis at both lung bases. Heart is enlarged. There is coronary artery calcification. There are a few paratracheal lymph nodes up to 1.5 cm. There are no hilar masses. There is some bilat eral posterior pulmonary calcification on the right side. Thoracic spine shows fairly normal alignment of the vertebra. There is 15% wedging of T11 vertebra. T here are sternal wires. IMPRESSION: Pleural and pulmonary calcification posteriorly adjacent to the pleural fluid. Bilateral moderate ple ural effusions. Pleural fluid slightly increased compared to the old exam. There are a few mediastina l lymph nodes without change. Cardiomegaly unchanged.
--- NOTE | 2022-05-06 03:41 | HP ---
HISTORY AND PHYSICAL HISTORY OF PRESENT ILLNESS: A 72-year-old white male who was admitted with increasing respiratory distress requiring oxygen. His CAT scan and chest x-ray shows more infiltrates in his lungs. He is admitted, he gets recurrent pleural effusions to got a pleural cath. He gets drainage on Thursday, Thursday, and Thursday as well as dialysis 3 times a week. Recent PET scan showed no suspicious radiotracer activity. Pleural biopsy during PleurX catheter revealed no malignancies also. He had increasing shortness of breath. Regarding a PleurX catheter being drained effectively, his left basilar airspace opacities which is progressed compared to 04/24/2022, persistent right small perfusion. White count is 8.1, hemoglobin is 9.7, creatinine is 5.92, BUN is 29, sodium 137, potassium 4.5, glucose 157. BNP is 89-100. He is requiring 4 L of oxygen, hypertensive, hemodialysis today. REVIEW OF SYSTEMS: A 14-point review of systems otherwise negative. PAST MEDICAL HISTORY: Coronary artery disease, diabetes mellitus, dialysis, dyslipidemia, hypertension, memory impairment, renal disease, CABG, cataracts, bilateral pleural effusions. PAST SURGICAL HISTORY: Adenoidectomy, tonsillectomy, cataract surgery, and right PleurX catheter placement. FAMILY HISTORY: See orders. MEDICATIONS: 1. PhosLo 667 q.i.d. 2. Plavix 75 mg daily. 3. Lexapro 20 mg daily. 4. Protonix 40 mg daily. 5. Coreg 3.125 b.i.d. 6. Aspirin 81 daily. 7. Jardiance 25 mg daily. 8. Demadex 40 mg daily. 9. Norvasc 10 mg daily. 10.Tramadol 50 q.i.d. 11.[place] 5/325 two tabs q.6 hours. 12.DuoNeb updraft q.i.d. 13.Lidocaine 5%. ALLERGIES: Keflex, codeine, atorvastatin, lisinopril, metoprolol, Crestor. PHYSICAL EXAMINATION: VITAL SIGNS: Temperature 97.9, blood pressure has been high 180s to 200s over 70s to 80s, O2 on 4 L has been 96-100, and pulse 60s to 80s. GENERAL: He is alert, on 4 L oxygen, in no acute distress. HEAD: Normocephalic, atraumatic. Pupils equal, round, reactive to light and accommodation. NECK: Supple. CHEST: No chest wall deformity. Right pleural catheter secured in place. Lungs diminished. CARDIOVASCULAR: S1, S2. ABDOMEN: Soft. SPINE: No scoliosis. SKIN: No rashes. PATCH WORKER: Normal. EXTREMITIES: He has a fistula in the left upper extremity. LABORATORY DATA: White count is 8.1, hemoglobin is 9.7, BUN is 29, creatinine 5.92. His sodium is 135, chloride is 97, BUN is 28, creatinine 5.45, albumin 3.3, hemoglobin is 8.5 and 9.7. He has acute hypoxemic respiratory failure secondary to fluid overload, no pneumonia. Procalcitonin pending. End-stage renal disease. We will get Cardiology involved, put him on IV Lasix. History of coronary artery disease, diabetes mellitus, COPD, dyslipidemia, hypertension, depression, possibly do CAT scan of his chest. Continue with FiO2 on oxygen at this point. Set up home oxygen diuresis with Cardiology. Prognosis guarded. MMODL / IJN: [id number] /
[2022-05-06 05:57] LABS: Glucose,Whole Blood 140 mg/dL (70-110)
[2022-05-06] MEDS: PANTOPRAZOLE 40 MG TABLET PO SCH (06:48)
--- NOTE | 2022-05-06 07:55 | XR ---
EXAMINATION TYPE: XR chest 1V portable DATE OF EXAM: 05/06/2022 6:36 AM COMPARISON: Chest radiographs from retyped 1223, CT chest 05/05/2022 TECHNIQUE: XR chest 1V portable Portable AP radiograph of the chest. CLINICAL INDICATION:Male, 72 years old with history of Pleural effusion; FINDINGS: Lungs/Pleura: Small bilateral pleural effusions with right greater than left. No pneumothorax. Right base pleural calcifications are better appreciated on prior CT. A basilar similar airspace opacities. Pulmonary vascularity: Pulmonary vascular congestion. Heart/mediastinum: Cardiomediastinal silhouette is enlarged and stable. Musculoskeletal: No acute osseous pathology. Midline sternotomy wires are noted and stable. Other: Right Pleurx catheter in stable position. IMPRESSION: 1. Right Pleurx catheter in stable position. 2. Similar small bilateral pleural effusions with right greater than left and adjacent airspace opac ities. 3. Persistent cardiomegaly.
--- NOTE | 2022-05-06 08:08 | P.CRDCN ---
History of Present Illness Consult date: 05/06/22 Chief complaint: CHF History of present illness: The patient is a pleasant 72-year-old gentleman with a past medical history significant for CAD with prior CABG and stenting with unknown details performed at [facility] and currently the patient does not follow up with any supervisor maintenance as well as heart failure with preserved ejection fraction with an echo in 2022 showing preserved LV function was mild to moderate mitral regurgitation as well as into stage renal disease on hemodialysis 3 times a week as well as hypertension and dyslipidemia and also chronic right pleural effusion currently he does have a drainage catheter placed there chronically is here for further cardiac evaluation. The patient was in his usual state of health yesterday when he went to bed and suddenly he developed shortness of breath. No associated chest pain or chest discomfort and no dizziness or lightheadedness and no feeling of heart racing or fluttering and no presyncope or syncope. No lower extremities decided to come to the emergency department. He underwent further investigation including an EKG which showed sinus mechanism as well as DRAW FURNACE TENDER proBNP which came in to be significantly elevated. The patient also underwent a chest x-ray which showed findings laboratory assistant was small right pleural effusion. He stated that the right chest drainage has been working effectively. He was ruled out for cancer and he underwent extensive workup regarding the recurrent right pleural effusion. The patient also was found to be hypertensive. He remains hypertensive with systolic pressure consistent with stage II hypertension. He states that he has been compliant with all of his medications including the blood pressure medications. Also he stated that he has been compliant with his diet. Also he stated that he has been compliant with his dialysis. The examination is remarkable for elevated blood pressure as well as diminished breathing sounds over the right chest with regular rhythm and distant heart sounds as well as systolic murmur was here at the right as well as left upper sternal border. Assessment Hypertension crisis complicated by heart failure Heart failure with preserved ejection fraction exacerbation Valvular heart disease with mitral regurgitation End stage renal disease on dialysis 3 times a week Recurrent right pleural effusion Multiple comorbid conditions including hypertension and dyslipidemia Coronary artery disease with prior revascularization Plan The patient shortness of breath could be related to worsening mitral regurgitation related to hypertension crisis Continue the current dose of oral diuretics. That has been managed by the nephrology team Optimize medical treatment for hypertension. Consider adding hydralazine to the current medical regimen Obtain a limited echo to assess ejection fraction and also to assess for any progression in the severity of mitral regurgitation Right drainage tube in the chest and has been working effectively Follow-up with the patient Past Medical History Past Medical History: Coronary Artery Disease (CAD), Diabetes Mellitus, Dialysis, Hyperlipidemia, Hypertension, Memory Impairment, Renal Disease Additional Past Medical History / Comment(s): CABG, Cataracts; recurrent bilateral pleural effusions History of Any Multi-Drug Resistant Organisms: None Reported Past Surgical History: Adenoidectomy, Tonsillectomy Additional Past Surgical History / Comment(s): 6 vessel coronary bypass, bilateral cataract surgery, left arm hemodialysis AV fistula; right-sided Pleurx catheter placed 03/21/22 Past Anesthesia/Blood Transfusion Reactions: No Reported Reaction Past Psychological History: Depression Smoking Status: Former smoker Past Alcohol Use History: None Reported Past Drug Use History: None Reported - Past Family History Daughter(s) Family Medical History: No Reported History Medications and Allergies Home Medications Medication Instructions Recorded Confirmed Type Calcium Acetate [PhosLo] 667 mg PO QID 03/11/22 05/04/22 History Clopidogrel [Plavix] 75 mg PO DAILY 03/11/22 05/04/22 History Escitalopram [Lexapro] 20 mg PO DAILY 03/11/22 05/04/22 History Pantoprazole [Protonix] 40 mg PO DAILY 03/11/22 05/04/22 History carvediloL [Coreg] 3.125 mg PO BID 03/11/22 05/04/22 History Aspirin 81 mg PO DAILY #30 tab 03/24/22 05/04/22 Rx Empagliflozin [Jardiance] 25 mg PO DAILY #30 tablet 03/24/22 05/04/22 Rx Torsemide [Demadex] 40 mg PO DAILY #30 tab 03/24/22 05/04/22 Rx amLODIPine [Norvasc] 10 mg PO DAILY #30 tab 03/24/22 05/04/22 Rx traMADol HCl [Ultram] 50 mg PO QID PRN 5 Days #20 tab 03/24/22 05/04/22 Rx HYDROcodone/APAP 5-325MG [[place] 1 tab PO Q4HR PRN 04/03/22 05/04/22 History 5-325] Folic Acid-Vit B Complex-Vit C 1 cap PO DAILY 05/04/22 05/04/22 History [Nephrocaps] Ipratropium-Albuterol Nebulize 3 ml INHALATION RT-QID PRN 05/04/22 05/04/22 History [Duoneb 0.5 mg-3 mg/3 ml Soln] Lidocaine 5% Patch [Lidoderm] 1 patch TOPICAL DAILY PRN 05/04/22 05/04/22 History Allergies Allergy/AdvReac Type Severity Reaction Status Date / Time cephalexin [From Keflex] Allergy Rash/Hives Verified 05/04/22 22:10 codeine Allergy Rash/Hives Verified 05/04/22 22:10 atorvastatin AdvReac ACHES AND Verified 05/04/22 22:10 WEAKNESS lisinopril AdvReac DRY COUGH Verified 05/04/22 22:10 metoprolol AdvReac DRY COUGH Verified 05/04/22 22:10 rosuvastatin [From Crestor] AdvReac ACHES AND Verified 05/04/22 22:10 WEAKNESS Physical Exam Vitals: Vital Signs Temp Pulse Resp BP Pulse Ox 05/06/22 01:44 98.1 F 60 17 173/71 100 05/05/22 19:07 97.8 F 60 18 124/47 99 05/05/22 17:28 98.1 F 05/05/22 16:15 101 F H 57 L 18 156/80 05/05/22 15:57 97.5 F L 60 19 134/63 98 05/05/22 08:05 19 Intake and Output 05/05/22 05/06/22 05/06/22 22:59 06:59 14:59 Intake Total 500 Output Total 3100 Balance -2600 Intake: Hemodialysis 500 Output: Chest Tube Drainage 100 Pleural Catheter Right 100 Pleural/Mediastinal Hemodialysis 3000 Other: # Voids 2 2 Results 05/05/22 05:48 05/05/22 05:48 Current Medications Generic Name Dose Route Start Last Admin Trade Name Freq PRN Reason Stop Dose Admin Hydrocodone Bitart/Acetaminophen 1 each 05/05/22 01:45 05/05/22 04:22 Hydrocodone/Apap 5-325mg 1 Each Tab PO 1 each Q4HR PRN Administration Pain Albuterol Sulfate 2 puff 05/05/22 01:45 Albuterol Hfa Inhaler INHALATION RT-QID PRN Shortness Of Breath Amlodipine Besylate 10 mg 05/05/22 09:00 05/05/22 08:07 Amlodipine 10 Mg Tab PO 10 mg DAILY ROGER Administration Aspirin 81 mg 05/05/22 09:00 05/05/22 08:07 Aspirin 81 Mg PO 81 mg DAILY ROGER Administration Calcium Acetate 667 mg 05/05/22 09:00 05/05/22 20:12 Calcium Acetate 667 Mg Tab PO 667 mg QID ROGER Administration Carvedilol 3.125 mg 05/05/22 09:00 05/05/22 20:13 Carvedilol 3.125 Mg Tab PO Not Given BID [facility] Clopidogrel Bisulfate 75 mg 05/05/22 09:00 05/05/22 08:07 Clopidogrel 75 Mg Tab PO 75 mg DAILY ROGER Administration Dapagliflozin 10 mg 05/05/22 09:00 05/05/22 08:07 Dapagliflozin Propanediol 10 Mg Tablet PO 10 mg DAILY ROGER Administration Escitalopram Oxalate 20 mg 05/05/22 09:00 05/05/22 08:07 Escitalopram 20 Mg Tab PO 20 mg DAILY ROGER Administration Hydralazine HCl 10 mg 05/05/22 01:44 05/05/22 01:54 Hydralazine Hcl 20 Mg/Ml 1 Ml Vial IVP 10 mg Q4HR PRN Administration Blood Pressure - High Multivit/Ca Carb/B Cmplx/FA/Prenat 1 each 05/05/22 09:00 05/05/22 08:06 Folic Acid-Vit B Complex-Vit C 1 Cap PO 1 each DAILY ROGER Administration Naloxone HCl 0.2 mg 05/04/22 22:59 Naloxone 0.4 Mg/Ml 1 Ml Vial IV Q2M PRN Opioid Reversal Pantoprazole Sodium 40 mg 05/05/22 07:30 05/06/22 06:48 Pantoprazole 40 Mg Tablet PO 40 mg [id number] ROGER Administration Torsemide 40 mg 05/05/22 09:00 05/05/22 08:06 Torsemide 20 Mg Tab PO 40 mg DAILY ROGER Administration Intake and Output 05/05/22 05/06/22 05/06/22 22:59 06:59 14:59 Intake Total 500 Output Total 3100 Balance -2600 Intake: Hemodialysis 500 Output: Chest Tube Drainage 100 Pleural Catheter Right 100 Pleural/Mediastinal Hemodialysis 3000 Other: # Voids 2 2 05/05/22 05:48 05/05/22 05:48
[2022-05-06] MEDS: TORSEMIDE 20 MG TAB PO SCH (08:50)
[2022-05-06] MEDS: hydrALAZINE HCL 10 MG TAB PO SCH ×3 (08:51→20:38)
[2022-05-06] MEDS: CLOPIDOGREL 75 MG TAB PO SCH (08:51)
[2022-05-06] MEDS: ASPIRIN 81 MG PO SCH (08:51)
[2022-05-06] MEDS: CALCIUM ACETATE 667 MG TAB PO SCH ×4 (08:51→20:38)
[2022-05-06] MEDS: DAPAGLIFLOZIN PROPANEDIOL 10 MG TABLET PO SCH (08:51)
[2022-05-06] MEDS: amLODIPine 10 MG TAB PO SCH (08:51)
[2022-05-06] MEDS: carvediloL 3.125 MG TAB PO SCH ×2 (08:51→20:38)
[2022-05-06] MEDS: FOLIC ACID-VIT B COMPLEX-VIT C 1 CAP PO SCH (08:51)
[2022-05-06] MEDS: ESCITALOPRAM 20 MG TAB PO SCH (08:51)
--- NOTE | 2022-05-06 10:26 | CA ---
Transthoracic Echo Report Name: Aldo Turpin Age: 72 Gender: M : 1950 Exam Date: 05/06/2022 07:08 Exam Location: [place] [facility] Ht (in): 76 Wt (lb): 235 Ordering Physician: Pradeep Farias MD ([id number]) Attending/Referring Phys: Construction Carpenters Helper Kemi Friedman RDCS Procedure CPT: Indications: chf Cardiac Hx: limited study Technical Quality: Technically difficult study Contrast 1: Lumason Total Dose (mL): 3 Contrast 2: Total Dose (mL): MEASUREMENTS (Male / Female) Normal Values 2D ECHO LA Volume 115.0 cm??? 18 - 58 / 22 - 52 cm??? M-MODE MV E Point Septal Separation 1.8 cm DOPPLER AV Peak Velocity 137.5 cm/s AV Peak Gradient 7.6 mmHg MV Peak Velocity 148.5 cm/s MV Peak Gradient 8.8 mmHg MV Mean Velocity 90.8 cm/s MV Mean Gradient 3.7 mmHg MV Velocity Time Integral 47.3 cm MV Area PHT 4.3 cm??? Mitral E Point Velocity 136.5 cm/s Mitral A Point Velocity 94.9 cm/s Mitral E to A Ratio 1.4 MV Deceleration Time 174.9 ms MV E' Velocity 5.3 cm/s Mitral E to MV E' Ratio 25.7 TR Peak Velocity 253.5 cm/s TR Peak Gradient 25.7 mmHg Right Ventricular Systolic Press 30.7 mmHg FINDINGS Left Ventricle Left ventricular ejection fraction is estimated at 50-55 %. Apical septum hypokinesis Right Ventricle Right ventricle not well visualized. Right Atrium Right atrium not well visualized. Left Atrium Severely increased left atrial volume. Moderately increased left atrial area. Mitral Valve Mitral valve thickened. Moderate mitral annular calcification. Trace to mild mitral regurgitation. Aortic Valve Aortic valve not well visualized. Tricuspid Valve Mild tricuspid regurgitation. Pulmonic Valve Pulmonic valve not well visualized. Pericardium Normal pericardium. No pericardial effusion. Aorta Aortic root and proximal ascending aorta not well visualized. CONCLUSIONS Technically difficult study for interpretation Normal LV systolic function with EF between 50-55% Mitral annular calcification Previewed by: Dr. Pradeep Farias MD (Electronically Signed) Final Date: 06 May 2022 10:25
[2022-05-06 11:28] LABS: Glucose,Whole Blood 219 mg/dL (70-110)
--- NOTE | 2022-05-06 12:03 | P.PN ---
Subjective Patient is seen for follow-up for end-stage renal disease. He tolerated dialysis yesterday with UF of 3 L. No significant complaints today. Objective - Vital Signs Vital signs: Vital Signs Temp 97.3 F L 05/06/22 07:47 Pulse 68 05/06/22 07:47 Resp 19 05/06/22 07:47 BP 188/77 05/06/22 07:47 Pulse Ox 99 05/06/22 09:14 FiO2 Intake & Output 05/05/22 05/06/22 05/06/22 18:59 06:59 18:59 Intake Total 500 Output Total 3100 Balance -2600 Intake: Hemodialysis 500 Output: Chest Tube Drainage 100 Pleural Catheter Right 100 Pleural/Mediastinal Hemodialysis 3000 Other: # Voids 2 2 - Exam Patient is awake, comfortable, no acute distress Examination of the heart S1 and S2 Examination the lungs bilateral breath sounds are heard, decreased breath sounds on the right side Abdomen is soft nontender Examination lower extremities shows trace edema bilaterally MEDIA PRODUCER exam grossly intact - Labs CBC & Chem 7: 05/05/22 05:48 05/05/22 05:48 Labs: Abnormal Lab Results - Last 24 Hours (Table) 05/05/22 05/05/22 05/06/22 Range/Units 05:48 20:52 05:54 POC Glucose (mg/dL) 199 H 140 H (70-110) mg/dL Procalcitonin 0.18 H (0.02-0.09) ng/mL 05/06/22 Range/Units 11:27 POC Glucose (mg/dL) 219 H (70-110) mg/dL Procalcitonin (0.02-0.09) ng/mL Assessment and Plan Assessment: 1. End-stage renal disease on hemodialysis on a Thursday schedule 2. Volume overload 3. Chronic right pleural effusion with Pleurx catheter with ? diagnosis of lung cancer, details not available.? Mesothelioma 4. CK D mineral bone disorder 5. Hypertension with CK D stage V Plan: Hemodialysis in am Continue with phosphate binders Continue with oral diuretics as patient has urine output.
--- NOTE | 2022-05-06 13:32 | P.PN ---
Subjective Progress Note Date: 05/06/22 This is a pleasant 72-year-old male patient with a known history of coronary artery disease with previous coronary artery bypass grafting, end-stage renal disease receiving hemodialysis on Thursday, recurrent pleural effusions with subsequent Pleurx catheter placement on 03/21/2022, former smoker, hypertension, hyperlipidemia. Pleural biopsies during Pleurx catheter placement on 03/24/2022 revealed no malignancy. Recent PET scan from 04/25/2022 revealed no suspicious radiotracer activity. He presented here again to the emergency room yesterday with complaints of increasing shortness of breath and concerns regarding Pleurx catheter being drained effectively. Chest x-ray reveals interval progression of left basilar airspace opacities compared to 04/24/2022. Persistent right small pleural effusion. Right Pleurx catheter in appropriate position. White count 8.1. Hemoglobin 9.7. Sodium 137. Potassium 4.5. BUN 29. Creatinine 5.92. Glucose 157. ProBNP 89,200. He is seen today in consultation on the regular medical floor. He is currently sitting up in bed. Awake and alert in no acute distress. He is maintaining good O2 saturations in the high 90s on 4 L/m per nasal cannula. He's been afebrile. Somewhat hypertensive. Plan is for hemodialysis with ultrafiltration with 2-3 L tolerated. The patient is seen today 05/06/2022 in follow-up on the regular medical floor. He remains awake and alert in no acute distress. Maintaining O2 saturations up to 100% on 4 L/m per nasal cannula. Afebrile. Somewhat hypertensive still. Did have hemodialysis yesterday with 3 L of fluid removed. He did have 100 ML's of serosanguineous fluid removed from the Pleurx catheter yesterday as well. Blood glucose 219. C-reactive protein 3.4. Pro-calcitonin 0.18. He has been put on cefepime per ID services. Remains on diuretics. Chest x-ray reveals right Pleurx catheter in stable position. Small similar bilateral pleural effusions with right greater than left adjacent airspace opacities. Persistent cardiomegaly. Limited echocardiogram reveals preserved left ventricular systolic function with ejection fraction 50-55%. Objective - Vital Signs Vital signs: Vital Signs Temp 97.3 F L 05/06/22 07:47 Pulse 68 05/06/22 07:47 Resp 19 05/06/22 07:47 BP 188/77 05/06/22 07:47 Pulse Ox 97 05/06/22 12:12 FiO2 Intake & Output 05/05/22 05/06/22 05/06/22 18:59 06:59 18:59 Intake Total 500 118 Output Total 3100 Balance -2600 118 Intake: Oral 118 Hemodialysis 500 Output: Chest Tube Drainage 100 Pleural Catheter Right 100 Pleural/Mediastinal Hemodialysis 3000 Other: # Voids 2 2 - Exam GENERAL EXAM: Alert, 72-year-old male, on 4 L nasal cannula, comfortable in no apparent distress. HEAD: Normocephalic. EYES: Normal reaction of pupils, equal size. NOSE: Clear with pink turbinates. THROAT: No erythema or exudates. NECK: No masses, no JVD. CHEST: No chest wall deformity. Right sided Pleurx catheter secured in place. LUNGS: Equal air entry with few scattered crackles, diminished in the right base. CVS: S1 and S2 normal with no audible murmur, regular rhythm. ABDOMEN: No hepatosplenomegaly, normal bowel sounds, no guarding or rigidity. SPINE: No scoliosis or deformity SKIN: No rashes CENTRAL NERVOUS SYSTEM: No focal deficits, tone is normal in all 4 extremities. EXTREMITIES: Left upper extremity with AV fistula There is no peripheral edema. No clubbing, no cyanosis. Peripheral pulses are intact. - Labs CBC & Chem 7: 05/05/22 05:48 05/05/22 05:48 Labs: Abnormal Lab Results - Last 24 Hours (Table) 05/05/22 05/05/22 05/06/22 Range/Units 05:48 20:52 05:54 POC Glucose (mg/dL) 199 H 140 H (70-110) mg/dL Procalcitonin 0.18 H (0.02-0.09) ng/mL 05/06/22 Range/Units 11:27 POC Glucose (mg/dL) 219 H (70-110) mg/dL Procalcitonin (0.02-0.09) ng/mL Assessment and Plan Assessment: Acute hypoxic respiratory failure secondary to fluid volume overload. No clear evidence of pneumonia. ProCalcitonin 0.18. Placed on cefepime per ID service History of end-stage renal disease receiving hemodialysis Thursday schedule via left upper extremity AV fistula History of recurrent right-sided pleural effusion status post Pleurx catheter placement 03/21/2022. Pathology was negative for malignancy. PET scan 04/27/2022 revealed no radiotracer uptake History of coronary disease with previous coronary artery bypass grafting Diabetes mellitus Hyperlipidemia Hypertension History of depression Former smoker Plan: The patient was seen and evaluated Chest x-ray, echo, medications reviewed Received hemodialysis yesterday with 3 L removed Pleurx catheter was drained of 100 ML's yesterday as well Continue diuretics Titrate the FiO2 as tolerated We will continue to follow I have personally seen and examined the patient, performed the documentation and the assessment and plan as written. Number of minutes spent on the visit: 10.
[2022-05-06] MEDS: CEFEPIME 1 GM in SODIUM CHLORIDE 0.9% 50 ML IVPB SCH (14:34)
[2022-05-06 17:03] LABS: Glucose,Whole Blood 180 mg/dL (70-110)
[2022-05-06 20:35] LABS: Glucose,Whole Blood 169 mg/dL (70-110)
--- NOTE | 2022-05-06 22:08 | PN ---
PROGRESS NOTE A 72-year-old white male admitted with hypoxemic respiratory distress. He is currently saturating 99% on 2 L, which is better than when he came in with. Blood pressure 147/75, temp 98, pulse 59, C-reactive protein 3.4. Sugars in the mid 100s to 200s, high procalcitonin 0.18. Started on broad-spectrum antibiotics. Seen by dialysis doctor. Dr. Farias seen him also. He is hypertensive. He is going to get dialysis today, sitting up in bed. He is weaning down his oxygen down to 2 L. Blood pressures are better. Labs are reviewed. Continue diuretics to titrate FiO2. Chest x-ray, echo, medications reviewed. Continue with dialysis. Rule out for possible pneumonia, could be hypoxemic respiratory failure secondary to fluid overload. Cefepime is per Infectious Disease for possible pneumonia, end-stage renal disease, right-sided pleural effusion, status post pleural catheter drainage, CABG. PROGNOSIS: Guarded. MMODL / IJN: [id number] /
--- NOTE | 2022-05-06 22:41 | P.CONS ---
History of Present Illness - Reason for Consult Consult date: 05/06/22 CAP/High pro calcitonin Requesting physician: Isaak Amaya - Chief Complaint Increasing shortness of breath x few days - History of Present Illness Patient is a 72-year-old male with a past medical history significant for diabetes mellitus hypertension hyperlipidemia renal insufficiency coronary disease presenting to the hospital 2 days ago for evaluation of increasing shortness of breath that started before the patient went down to 2 bed patient was having trouble catching his breath the patient denies having any chest pain he did have a cough mild to moderate intensity and not bring up any sputum patient did have a right-sided Pleurx catheter in place for right effusion which is being drained at home by the home care nurse periodically and apparently it was drained the day before the patient was brought into the hospital on arrival to the ER the patient was afebrile initially however he did spike a fever yesterday afternoon of 101 F and the patient has been afebrile since then the patient is currently hypoxic and is requiring supplemental oxygen patient did have a normal white count he did have a mildly elevated procalcitonin 0.18 did have elevated BUN and creatinine patient did have a chest x-ray interval progression of the left basilar airspace opacity concerning for worsening infection versus aspiration patient also have a CT of the chest pleuropulmonary calcification bilateral moderate effusion infectious disease was consulted john use of his elevated procalcitonin fever and need for antibiotic therapy Review of Systems Positive point has been mentioned in the HPI rest of the systems are negative Past Medical History Past Medical History: Coronary Artery Disease (CAD), Diabetes Mellitus, Dialysis, Hyperlipidemia, Hypertension, Memory Impairment, Renal Disease Additional Past Medical History / Comment(s): CABG, Cataracts; recurrent bilateral pleural effusions History of Any Multi-Drug Resistant Organisms: None Reported Past Surgical History: Adenoidectomy, Tonsillectomy Additional Past Surgical History / Comment(s): 6 vessel coronary bypass, bilateral cataract surgery, left arm hemodialysis AV fistula; right-sided Pleurx catheter placed 03/21/22 Past Anesthesia/Blood Transfusion Reactions: No Reported Reaction Past Psychological History: Depression Smoking Status: Former smoker Past Alcohol Use History: None Reported Past Drug Use History: None Reported - Past Family History Daughter(s) Family Medical History: No Reported History Medications and Allergies Home Medications Medication Instructions Recorded Confirmed Type Calcium Acetate [PhosLo] 667 mg PO QID 03/11/22 05/04/22 History Clopidogrel [Plavix] 75 mg PO DAILY 03/11/22 05/04/22 History Escitalopram [Lexapro] 20 mg PO DAILY 03/11/22 05/04/22 History Pantoprazole [Protonix] 40 mg PO DAILY 03/11/22 05/04/22 History carvediloL [Coreg] 3.125 mg PO BID 03/11/22 05/04/22 History Aspirin 81 mg PO DAILY #30 tab 03/24/22 05/04/22 Rx Empagliflozin [Jardiance] 25 mg PO DAILY #30 tablet 03/24/22 05/04/22 Rx Torsemide [Demadex] 40 mg PO DAILY #30 tab 03/24/22 05/04/22 Rx amLODIPine [Norvasc] 10 mg PO DAILY #30 tab 03/24/22 05/04/22 Rx traMADol HCl [Ultram] 50 mg PO QID PRN 5 Days #20 tab 03/24/22 05/04/22 Rx HYDROcodone/APAP 5-325MG [[place] 1 tab PO Q4HR PRN 04/03/22 05/04/22 History 5-325] Folic Acid-Vit B Complex-Vit C 1 cap PO DAILY 05/04/22 05/04/22 History [Nephrocaps] Ipratropium-Albuterol Nebulize 3 ml INHALATION RT-QID PRN 05/04/22 05/04/22 History [Duoneb 0.5 mg-3 mg/3 ml Soln] Lidocaine 5% Patch [Lidoderm 5% 1 patch TOPICAL DAILY PRN 05/04/22 05/04/22 History Patch] Cefdinir [Omnicef] 300 mg PO BID 7 Days #14 cap 05/09/22 Rx hydrALAZINE HCL [Apresoline] 50 mg PO TID 30 Days #90 tab 05/09/22 Rx Allergies Allergy/AdvReac Type Severity Reaction Status Date / Time cephalexin [From Keflex] Allergy Rash/Hives Verified 05/04/22 22:10 codeine Allergy Rash/Hives Verified 05/04/22 22:10 atorvastatin AdvReac ACHES AND Verified 05/04/22 22:10 WEAKNESS lisinopril AdvReac DRY COUGH Verified 05/04/22 22:10 metoprolol AdvReac DRY COUGH Verified 05/04/22 22:10 rosuvastatin [From Crestor] AdvReac ACHES AND Verified 05/04/22 22:10 WEAKNESS Physical Exam Vitals: Vital Signs Temp Pulse Resp BP Pulse Ox 05/06/22 09:14 99 05/06/22 07:47 97.3 F L 68 19 188/77 100 05/06/22 01:44 98.1 F 60 17 173/71 100 05/05/22 19:07 97.8 F 60 18 124/47 99 05/05/22 17:28 98.1 F 05/05/22 16:15 101 F H 57 L 18 156/80 05/05/22 15:57 97.5 F L 60 19 134/63 98 Intake and Output 05/05/22 05/06/22 05/06/22 22:59 06:59 14:59 Intake Total 500 Output Total 3100 Balance -2600 Intake: Hemodialysis 500 Output: Chest Tube Drainage 100 Pleural Catheter Right 100 Pleural/Mediastinal Hemodialysis 3000 Other: # Voids 2 2 GENERAL DESCRIPTION: Elderly male lying in bed, no distress. No tachypnea or accessory muscle of respiration use. HEENT: Shows Pallor , no scleral icterus. Oral mucous membrane is dry. No pharyngeal erythema or thrush NECK: Trachea central, no thyromegaly. LUNGS: Unlabored breathing. Decreased breath sounds at [employer]. No wheeze or crackle. HEART: S1, S2, regular rate and rhythm. No loud murmur ABDOMEN: Soft, no tenderness , guarding or rigidity, no organomegaly EXTREMITIES: No edema of feet. SKIN: No rash, no masses palpable. NEUROLOGICAL: The patient is awake, alert, oriented x3, mood and affect normal. Results CBC & Chem 7: 05/05/22 05:48 05/05/22 05:48 Labs: Abnormal Lab Results - Last 24 Hours (Table) 05/05/22 05/05/22 05/05/22 Range/Units 05:48 11:31 20:52 POC Glucose (mg/dL) 187 H 199 H (70-110) mg/dL Procalcitonin 0.18 H (0.02-0.09) ng/mL 05/06/22 Range/Units 05:54 POC Glucose (mg/dL) 140 H (70-110) mg/dL Procalcitonin (0.02-0.09) ng/mL Assessment and Plan (1) Fever Status: Acute Code(s): R50.9 - FEVER, UNSPECIFIED SNOMED Code(s): 524361184 Plan: 1patient presented to hospital with increasing shortness of breath which is likely multifactorial in this patient who did have history of end-stage disease on dialysis and also have a right-sided pleural his catheter for chronic effusion patient did have a fever that is slightly concerning for possible pulmonary source as the patient abdominal was soft with examination no evidence of any cellulitis or joint swelling. 2patient who do have cephalexin emergency room limit the number of antibiotics safe to use 3we will check influenza RSV and COVID PCR 4pleural fluid should be sent for cell count differential and culture 5we will empirically add cefepime while waiting for the work-up to be completed We will follow on clinical condition and cultures to further adjust medication if needed Thank you for this consultation we will follow the patient along with you Time with Patient: Greater than 30
[2022-05-07] MEDS: CEFEPIME 1 GM in SODIUM CHLORIDE 0.9% 50 ML IVPB SCH ×2 (00:27→14:02)
[2022-05-07 05:48] LABS: Glucose,Whole Blood 166 mg/dL (70-110)
--- NOTE | 2022-05-07 07:49 | P.PN ---
Subjective Progress Note Date: 05/07/22 Principal diagnosis: Heart failure with preserved ejection fraction The patient is a pleasant 72-year-old gentleman with a past medical history significant for CAD with prior CABG and stenting with unknown details performed at [facility] and currently the patient does not follow up with any exhibits manager as well as heart failure with preserved ejection fraction with an echo in 2022 showing preserved LV function was mild to moderate mitral regurgitation as well as into stage renal disease on hemodialysis 3 times a week as well as hypertension and dyslipidemia and also chronic right pleural effusion currently he does have a drainage catheter placed there chronically is here for further cardiac evaluation. The patient was in his usual state of health yesterday when he went to bed and suddenly he developed shortness of breath. No associated chest pain or chest discomfort and no dizziness or lightheadedness and no feeling of heart racing or fluttering and no presyncope or syncope. No lower extremities decided to come to the emergency department. He underwent further investigation including an EKG which showed sinus mechanism as well as TABLE MAKER proBNP which came in to be significantly elevated. The patient also underwent a chest x-ray which showed findings assistant nurse manager was small right pleural effusion. He stated that the right chest drainage has been working effectively. He was ruled out for cancer and he underwent extensive workup regarding the recurrent right pleural effusion. The patient also was found to be hypertensive. He remains hypertensive with systolic pressure consistent with stage II hypertension. He states that he has been compliant with all of his medications including the blood pressure medications. Also he stated that he has been compliant with his diet. Also he stated that he has been compliant with his dialysis. The examination is remarkable for elevated blood pressure as well as diminished breathing sounds over the right chest with regular rhythm and distant heart sounds as well as systolic murmur was here at the right as well as left upper sternal border. 05/07/2022 The patient was seen and evaluated this morning. He is feeling better. The pressure remains elevated. I'm going to increase the dose of hydralazine to 25 mg by mouth 3 times a day. He continues to be on by mouth diuretics. The echo revealed normal left ventricle systolic function was no significant valvular abnormalities. At this point I recommended continue the current medical regimen increase the dose of hydralazine and monitor the patient for additional 24 hours. On examination he seems to be somewhat euvolemic beside diminished br eathing sounds bilaterally with a regular rhythm and mild bilateral lower extremities edema. Assessment Hypertension crisis complicated by heart failure Heart failure with preserved ejection fraction exacerbation Valvular heart disease with mitral regurgitation End stage renal disease on dialysis 3 times a week Recurrent right pleural effusion Multiple comorbid conditions including hypertension and dyslipidemia Coronary artery disease with prior revascularization Plan The patient shortness of breath could be related to worsening mitral regurgitation related to hypertension crisis Continue the current dose of oral diuretics. That has been managed by the nephrology team Optimize medical treatment for hypertension. Increase the dose of hydralazine Follow-up with the patient Objective - Vital Signs Vital signs: Vital Signs Temp 98.4 F 05/07/22 00:32 Pulse 60 05/07/22 00:32 Resp 18 05/07/22 00:32 BP 156/70 05/07/22 00:32 Pulse Ox 98 05/07/22 00:32 FiO2 Intake & Output 05/06/22 05/07/22 05/07/22 18:59 06:59 18:59 Intake Total 118 Balance 118 Intake: Oral 118 Other: # Voids 1 3 - Labs CBC & Chem 7: 05/05/22 05:48 05/05/22 05:48 Labs: Abnormal Lab Results - Last 24 Hours (Table) 05/06/22 05/06/22 05/06/22 Range/Units 11:27 12:52 17:02 POC Glucose (mg/dL) 219 H 180 H (70-110) mg/dL C-Reactive Protein 3.4 H (<1.0) mg/dL 05/06/22 05/07/22 Range/Units 20:32 05:47 POC Glucose (mg/dL) 169 H 166 H (70-110) mg/dL C-Reactive Protein (<1.0) mg/dL
[2022-05-07] MEDS: TORSEMIDE 20 MG TAB PO SCH (08:15)
[2022-05-07] MEDS: ESCITALOPRAM 20 MG TAB PO SCH (08:15)
[2022-05-07] MEDS: PANTOPRAZOLE 40 MG TABLET PO SCH (08:15)
[2022-05-07] MEDS: CALCIUM ACETATE 667 MG TAB PO SCH ×4 (08:15→22:27)
[2022-05-07] MEDS: DAPAGLIFLOZIN PROPANEDIOL 10 MG TABLET PO SCH (08:15)
[2022-05-07] MEDS: carvediloL 3.125 MG TAB PO SCH ×2 (08:15→21:59)
[2022-05-07] MEDS: amLODIPine 10 MG TAB PO SCH (08:16)
[2022-05-07] MEDS: hydrALAZINE HCL 25 MG TAB PO SCH ×3 (08:16→22:27)
[2022-05-07] MEDS: CLOPIDOGREL 75 MG TAB PO SCH (08:16)
[2022-05-07] MEDS: FOLIC ACID-VIT B COMPLEX-VIT C 1 CAP PO SCH (08:16)
[2022-05-07] MEDS: ASPIRIN 81 MG PO SCH (08:16)
[2022-05-07 10:48] LABS: Appearance,Urine Clear (Clear); Bilirubin,Urine Negative (Negative); Blood,Urine Trace (Negative); Color,Urine Light Yellow; Glucose,Urine (UA) 3+ (Negative); Ketones,Urine Negative (Negative); Leukocyte Esterase,Urine Negative (Negative); Nitrite,Urine Negative (Negative); Protein,Urine 3+ (Negative); RBC,Urine 4 /hpf (0-5); Specific Gravity,Urine 1.005 (1.001-1.035); Urobilinogen,Urine <2.0 mg/dL (<2.0); WBC,Urine 1 /hpf (0-5)
[2022-05-07 11:57] LABS: Glucose,Whole Blood 276 mg/dL (70-110)
--- NOTE | 2022-05-07 12:12 | P.PN ---
Subjective Progress Note Date: 05/07/22 Principal diagnosis: Fever and possible pneumonia Patient is a 72-year-old male with a past medical history significant for diabetes mellitus hypertension hyperlipidemia renal insufficiency coronary disease, right-sided Pleurx catheter for recurrent pleural effusion presenting to the hospital for evaluation of increasing shortness of breath, patient did have a fever during this admission initial x-ray was suspicious for possible left basilar air space density with progression and concern for possible pneumonia. On today's evaluation that is 05/07/2022, the patient is afebrile he's currently breathing comfortably on room air, patient denies having any chest pain occasional cough but no sputum production no nausea no vomiting no abdominal pain no diarrhea Objective - Vital Signs Vital signs: Vital Signs Temp 97.2 F L 05/07/22 07:57 Pulse 63 05/07/22 07:57 Resp 18 05/07/22 07:57 BP 180/76 05/07/22 07:57 Pulse Ox 98 05/07/22 08:07 FiO2 Intake & Output 05/06/22 05/07/22 05/07/22 18:59 06:59 18:59 Intake Total 118 236 Balance 118 236 Intake: Oral 118 236 Other: # Voids 1 3 - Exam GENERAL DESCRIPTION: An elderly male lying in bed in no distress RESPIRATORY SYSTEM: Unlabored breathing , decreased breath sounds at bases HEART: S1 S2 regular rate and rhythm , ABDOMEN: Soft , no tenderness EXTREMITIES: No edema feet - Labs CBC & Chem 7: 05/05/22 05:48 05/05/22 05:48 Labs: Abnormal Lab Results - Last 24 Hours (Table) 05/06/22 05/06/22 05/06/22 Range/Units 11:27 12:52 17:02 POC Glucose (mg/dL) 219 H 180 H (70-110) mg/dL C-Reactive Protein 3.4 H (<1.0) mg/dL 05/06/22 05/07/22 Range/Units 20:32 05:47 POC Glucose (mg/dL) 169 H 166 H (70-110) mg/dL C-Reactive Protein (<1.0) mg/dL Assessment and Plan (1) Fever Current Visit: Yes Status: Acute Code(s): R50.9 - FEVER, UNSPECIFIED SNOMED Code(s): 130199987 Plan: 1patient presented to hospital with increasing shortness of breath which is likely multifactorial in this patient who did have history of end-stage disease on dialysis and also have a right-sided pleural his catheter for chronic effusion patient did have a fever that is slightly concerning for possible pulmonary source as the patient abdominal was soft with examination no evidence of any cellulitis or joint swelling. 2patient did have a negative influenza RSV and COVID PCR 3pleural fluid should be sent for cell count differential and culture, discussed with the RN to check with pulmonary 4we will continue the patient on cefepime while waiting for the work-up to be completed Time with Patient: Less than 30
--- NOTE | 2022-05-07 14:09 | P.PN ---
Subjective Progress Note Date: 05/07/22 This is a pleasant 72-year-old male patient with a known history of coronary artery disease with previous coronary artery bypass grafting, end-stage renal disease receiving hemodialysis on Thursday, recurrent pleural effusions with subsequent Pleurx catheter placement on 03/21/2022, former smoker, hypertension, hyperlipidemia. Pleural biopsies during Pleurx catheter placement on 03/24/2022 revealed no malignancy. Recent PET scan from 04/25/2022 revealed no suspicious radiotracer activity. He presented here again to the emergency room yesterday with complaints of increasing shortness of breath and concerns regarding Pleurx catheter being drained effectively. Chest x-ray reveals interval progression of left basilar airspace opacities compared to 04/24/2022. Persistent right small pleural effusion. Right Pleurx catheter in appropriate position. White count 8.1. Hemoglobin 9.7. Sodium 137. Potassium 4.5. BUN 29. Creatinine 5.92. Glucose 157. ProBNP 89,200. He is seen today in consultation on the regular medical floor. He is currently sitting up in bed. Awake and alert in no acute distress. He is maintaining good O2 saturations in the high 90s on 4 L/m per nasal cannula. He's been afebrile. Somewhat hypertensive. Plan is for hemodialysis with ultrafiltration with 2-3 L tolerated. The patient is seen today 05/06/2022 in follow-up on the regular medical floor. He remains awake and alert in no acute distress. Maintaining O2 saturations up to 100% on 4 L/m per nasal cannula. Afebrile. Somewhat hypertensive still. Did have hemodialysis yesterday with 3 L of fluid removed. He did have 100 ML's of serosanguineous fluid removed from the Pleurx catheter yesterday as well. Blood glucose 219. C-reactive protein 3.4. Pro-calcitonin 0.18. He has been put on cefepime per ID services. Remains on diuretics. Chest x-ray reveals right Pleurx catheter in stable position. Small similar bilateral pleural effusions with right greater than left adjacent airspace opacities. Persistent cardiomegaly. Limited echocardiogram reveals preserved left ventricular systolic function with ejection fraction 50-55%. The patient is seen today 05/07/2022 in follow-up on the regular medical floor. Currently resting flat in bed. Awake and alert in no acute distress. Maintaining O2 saturations in the upper 90s on 2 L nasal cannula. Blood glucose 166. Maintained on cefepime per ID services. Nolan on oral diuretics. Continues on a Thursday hemodialysis schedule. Objective - Vital Signs Vital signs: Vital Signs Temp 97.2 F L 05/07/22 07:57 Pulse 63 05/07/22 07:57 Resp 18 05/07/22 07:57 BP 180/76 05/07/22 07:57 Pulse Ox 98 05/07/22 08:07 FiO2 Intake & Output 05/06/22 05/07/22 05/07/22 18:59 06:59 18:59 Intake Total 118 236 Balance 118 236 Intake: Oral 118 236 Other: # Voids 1 3 - Exam GENERAL EXAM: Alert, 72-year-old male, on 2 L nasal cannula, comfortable in no apparent distress. HEAD: Normocephalic. EYES: Normal reaction of pupils, equal size. NOSE: Clear with pink turbinates. THROAT: No erythema or exudates. NECK: No masses, no JVD. CHEST: No chest wall deformity. Right sided Pleurx catheter secured in place. LUNGS: Equal air entry with few scattered crackles, diminished in the right base. CVS: S1 and S2 normal with no audible murmur, regular rhythm. ABDOMEN: No hepatosplenomegaly, normal bowel sounds, no guarding or rigidity. SPINE: No scoliosis or deformity SKIN: No rashes CENTRAL NERVOUS SYSTEM: No focal deficits, tone is normal in all 4 extremities. EXTREMITIES: Left upper extremity with AV fistula There is no peripheral edema. No clubbing, no cyanosis. Peripheral pulses are intact. - Labs CBC & Chem 7: 05/05/22 05:48 05/05/22 05:48 Labs: Abnormal Lab Results - Last 24 Hours (Table) 05/06/22 05/06/22 05/06/22 Range/Units 08:12 17:02 20:32 POC Glucose (mg/dL) 180 H 169 H (70-110) mg/dL Urine Protein 3+ H (Negative) Urine Glucose (UA) 3+ H (Negative) Urine Blood Trace H (Negative) 05/07/22 05/07/22 Range/Units 05:47 11:55 POC Glucose (mg/dL) 166 H 276 H (70-110) mg/dL Urine Protein (Negative) Urine Glucose (UA) (Negative) Urine Blood (Negative) Assessment and Plan Assessment: Acute hypoxic respiratory failure secondary to fluid volume overload. No clear evidence of pneumonia. ProCalcitonin 0.18. Placed on cefepime per ID service History of end-stage renal disease receiving hemodialysis Thursday schedule via left upper extremity AV fistula History of recurrent right-sided pleural effusion status post Pleurx catheter placement 03/21/2022. Pathology was negative for malignancy. PET scan 04/27/2022 revealed no radiotracer uptake History of coronary disease with previous coronary artery bypass grafting Diabetes mellitus Hyperlipidemia Hypertension History of depression Former smoker Plan: The patient was seen and evaluated Medications reviewed Continue diuretics Family has ordered his home oxygen Cleared for discharge from the pulmonary standpoint I have personally seen and examined the patient, performed the documentation and the assessment and plan as written. Number of minutes spent on the visit: 10.
--- NOTE | 2022-05-07 16:24 | P.PN ---
Subjective Patient is seen for follow-up for end-stage renal disease. He is scheduled for HD today. No significant complaints today. Pathology was negative for malignancy. 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 grossly intact - Labs CBC & Chem 7: 05/05/22 05:48 05/05/22 05:48 Labs: Abnormal Lab Results - Last 24 Hours (Table) 05/06/22 05/06/22 05/06/22 Range/Units 08:12 17:02 20:32 POC Glucose (mg/dL) 180 H 169 H (70-110) mg/dL Urine Protein 3+ H (Negative) Urine Glucose (UA) 3+ H (Negative) Urine Blood Trace H (Negative) 05/07/22 05/07/22 Range/Units 05:47 11:55 POC Glucose (mg/dL) 166 H 276 H (70-110) mg/dL Urine Protein (Negative) Urine Glucose (UA) (Negative) Urine Blood (Negative) Microbiology - Last 24 Hours (Table) 05/06/22 13:02 Blood Culture - Preliminary Blood No Growth after 24 hours Assessment and Plan Assessment: 1. End-stage renal disease on hemodialysis on a Thursday schedule 2. Volume overload 3. Chronic right pleural effusion with Pleurx catheter with no evidence of malignancy on path report. 4. CK D mineral bone disorder 5. Hypertension with CK D stage V Plan: Hemodialysis today with goal UF 2-3L as tolerated. Continue with phosphate binders Continue with oral diuretics as patient has urine output.
[2022-05-07 16:52] LABS: Glucose,Whole Blood 140 mg/dL (70-110)
[2022-05-07 20:32] LABS: Glucose,Whole Blood 128 mg/dL (70-110)
--- NOTE | 2022-05-07 22:08 | PN ---
PROGRESS NOTE PAST MEDICAL HISTORY: Diabetes mellitus, hypertension, dyslipidemia, coronary artery disease, right PleurX catheter, issues with increasing CAT scan of his lungs, possible pneumonitis. Dr. Menon saw the patient as he has had a fever, increased shortness of breath, multifactorial, end stage renal disease, on dialysis versus PleurX catheter issues, negative COVID and influenza, continue on cefepime, wait for the workup to be completed, which . We are going to consult Dr. Nunez' group to see about the catheter drainage. He has improved with dialysis since admission on antibiotics. CRP of 3.4. Continue current planning. Lungs mostly clear. Sitting up and acting appropriately. Cardiovascular, S1, S2. Hematology, negative Homans. Echo done yesterday on May 06, 50-55% ejection fraction, some mild hypokinesis, severely increased left atrial volume, moderate mitral calcification. Severely elevated BNP for which cardiology has seen him also. Continue current treatment, will consult as mentioned the chest surgeon to see if the PleurX catheter is working properly and possible biopsy may be another biopsy by Pulmonary or chest surgeon to rule out asbestosis. MMODL / IJN: [id number] /
[2022-05-08] MEDS: CEFEPIME 1 GM in SODIUM CHLORIDE 0.9% 50 ML IVPB SCH ×2 (01:06→14:38)
[2022-05-08 06:15] LABS: Glucose,Whole Blood 172 mg/dL (70-110)
[2022-05-08] MEDS: PANTOPRAZOLE 40 MG TABLET PO SCH (06:46)
--- NOTE | 2022-05-08 08:00 | XR ---
EXAMINATION TYPE: XR chest 1V portable DATE OF EXAM: 05/08/2022 CLINICAL HISTORY: Pleural effusion progress study. TECHNIQUE: Single AP portable upright view of the chest is obtained. COMPARISON: Chest x-ray from 2 days earlier and older studies. FINDINGS: Overlying sternal wires and mediastinal clips are redemonstrated. Persistent small nonsimp le right pleural fluid collection with percutaneous drainage catheter. Persistent right-sided volume loss with mediastinal shift. Persistent mid to lower lung increased opacities bilaterally on backgrou nd chronic parenchymal changes. Persistent cardiomegaly. Osseous structures are intact. Right hilar s urgical clips redemonstrated. IMPRESSION: Chronic changes and cardiomegaly with right-sided volume loss and bilateral lower lung ac [place] infiltrate and/or atelectasis are redemonstrated. Stable small right pleural fluid collection wit h basilar percutaneous drainage catheter. No significant change from most recent x-ray.
--- NOTE | 2022-05-08 08:50 | P.PN ---
Subjective Progress Note Date: 05/08/22 Principal diagnosis: Heart failure with preserved ejection fraction The patient is a pleasant 72-year-old gentleman with a past medical history significant for CAD with prior CABG and stenting with unknown details performed at [facility] and currently the patient does not follow up with any healthcare consultant as well as heart failure with preserved ejection fraction with an echo in 2022 showing preserved LV function was mild to moderate mitral regurgitation as well as into stage renal disease on hemodialysis 3 times a week as well as hypertension and dyslipidemia and also chronic right pleural effusion currently he does have a drainage catheter placed there chronically is here for further cardiac evaluation. The patient was in his usual state of health yesterday when he went to bed and suddenly he developed shortness of breath. No associated chest pain or chest discomfort and no dizziness or lightheadedness and no feeling of heart racing or fluttering and no presyncope or syncope. No lower extremities decided to come to the emergency department. 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 The patient also underwent a chest x-ray which showed findings data assistant was small right pleural effusion. He stated that the right chest drainage has been working effectively. He was ruled out for cancer and he underwent extensive workup regarding the recurrent right pleural effusion. The patient also was found to be hypertensive. He remains hypertensive with systolic pressure consistent with stage II hypertension. He states that he has been compliant with all of his medications including the blood pressure medications. Also he stated that he has been compliant with his diet. Also he stated that he has been compliant with his dialysis. The examination is remarkable for elevated blood pressure as well as diminished breathing sounds over the right chest with regular rhythm and distant heart sounds as well as systolic murmur was here at the right as well as left upper sternal border. 05/07/2022 The patient was seen and evaluated this morning. He is feeling better. The pressure remains elevated. I'm going to increase the dose of hydralazine to 25 mg by mouth 3 times a day. He continues to be on by mouth diuretics. The echo revealed normal left ventricle systolic function was no significant valvular abnormalities. At this point I recommended continue the current medical regimen increase the dose of hydralazine and monitor the patient for additional 24 hours. On examination he seems to be somewhat euvolemic beside diminished br eathing sounds bilaterally with a regular rhythm and mild bilateral lower extremities edema. May 082022 The patient was seen and evaluated this morning. He stated that he is feeling better. He underwent hemodialysis yesterday. Also the dose of hydralazine was increased yesterday. The pressure is somewhat slightly better. He reports no pain in the chest and he stated that the shortness of breath has improved. On examination he does have regular rhythm with diminished breathing sounds bilaterally and very mild bilateral lower extent his edema. Assessment Hypertension crisis complicated by heart failure Heart failure with preserved ejection fraction exacerbation Valvular heart disease with mitral regurgitation End stage renal disease on dialysis 3 times a week Recurrent right pleural effusion Multiple comorbid conditions including hypertension and dyslipidemia Coronary artery disease with prior revascularization Plan Continue the current dose of oral diuretics. That has been managed by the nephrology team Possible discharge in the next 24-48 hours Objective - Vital Signs Vital signs: Vital Signs Temp 98.4 F 05/08/22 01:17 Pulse 60 05/08/22 01:17 Resp 16 05/08/22 01:17 BP 104/44 05/08/22 01:17 Pulse Ox 94 L 05/08/22 01:17 FiO2 Intake & Output 05/07/22 05/08/22 05/08/22 18:59 06:59 18:59 Intake Total 236 Output Total 3000 Balance 236 -3000 Intake: Oral 236 Output: Hemodialysis 3000 Other: Voiding Method Toilet # Voids 1 1 - Labs CBC & Chem 7: 05/05/22 05:48 05/05/22 05:48 Labs: Abnormal Lab Results - Last 24 Hours (Table) 05/06/22 05/07/22 05/07/22 Range/Units 08:12 11:55 16:50 POC Glucose (mg/dL) 276 H 140 H (70-110) mg/dL Urine Protein 3+ H (Negative) Urine Glucose (UA) 3+ H (Negative) Urine Blood Trace H (Negative) 05/07/22 05/08/22 Range/Units 20:28 06:13 POC Glucose (mg/dL) 128 H 172 H (70-110) mg/dL Urine Protein (Negative) Urine Glucose (UA) (Negative) Urine Blood (Negative) Microbiology - Last 24 Hours (Table) 05/06/22 13:02 Blood Culture - Preliminary Blood No Growth after 24 hours
--- NOTE | 2022-05-08 09:08 | P.GSCN ---
History of Present Illness Consult date: 05/08/22 Reason for Consult: Open lung biopsy possibility of asbestosis, assess Pleurx catheter function Requesting physician: Isaak Amaya History of present illness: This is a 72-year-old gentleman who follows outpatient with Dr. Amaya for primary care. He is a previous medical history of end-stage renal disease with hemodialysis Thursday/Thursday/Thursday, coronary artery disease status post CABG in [address] [place] 1 year ago, recurrent pleural effusions status post left-sided as well as right-sided thoracentesis and subsequent placement of right-sided Pleurx catheter, hypertension, diabetes, hyperlipidemia, and previous tobacco dependence. He has been hospitalized a couple times this year already for shortness of breath and chest pain. He has had multiple CT scans of the chest demonstrating bilateral pleural effusions, right greater than left. He again presented to [facility] 05/04/2022 with complaints of shortness of breath, did state that his Pleurx catheter had been drained the day before and was due for dialysis the next day. He was admitted for evaluation and treatment with consultation placed to pulmonology and nephrology. The patient has also been seen by cardiology and infectious disease. He remains on IV antibiotics. Consultation was placed yesterday by Dr. Amaya for cardiothoracic surgery for possible open lung biopsy to rule out asbestosis as well as assess Pleurx catheter function. Review of Systems Review of systems was completed and was negative except as noted - Respiratory Reports cough, Reports dyspnea Past Medical History Past Medical History: Coronary Artery Disease (CAD), Diabetes Mellitus, Dialysis, Hyperlipidemia, Hypertension, Memory Impairment, Renal Disease Additional Past Medical History / Comment(s): CABG, Cataracts; recurrent bilate ral pleural effusions History of Any Multi-Drug Resistant Organisms: None Reported Past Surgical History: Adenoidectomy, Tonsillectomy Additional Past Surgical History / Comment(s): 6 vessel coronary bypass, bilateral cataract surgery, left arm hemodialysis AV fistula; right-sided Pleurx catheter placed 03/21/22 Past Anesthesia/Blood Transfusion Reactions: No Reported Reaction Past Psychological History: Depression Smoking Status: Former smoker Past Alcohol Use History: None Reported Past Drug Use History: None Reported - Past Family History Daughter(s) Family Medical History: No Reported History Medications and Allergies Home Medications Medication Instructions Recorded Confirmed Type RX: Calcium Acetate [PhosLo] 667 mg PO QID 03/11/22 05/04/22 History RX: Clopidogrel [Plavix] 75 mg PO DAILY 03/11/22 05/04/22 History RX: Escitalopram [Lexapro] 20 mg PO DAILY 03/11/22 05/04/22 History RX: Pantoprazole [Protonix] 40 mg PO DAILY 03/11/22 05/04/22 History RX: carvediloL [Coreg] 3.125 mg PO BID 03/11/22 05/04/22 History RX: Aspirin 81 mg PO DAILY #30 tab 03/24/22 05/04/22 Rx RX: Empagliflozin [Jardiance] 25 mg PO DAILY #30 tablet 03/24/22 05/04/22 Rx RX: Torsemide [Demadex] 40 mg PO DAILY #30 tab 03/24/22 05/04/22 Rx RX: amLODIPine [Norvasc] 10 mg PO DAILY #30 tab 03/24/22 05/04/22 Rx RX: traMADol HCl [Ultram] 50 mg PO QID PRN 5 Days #20 tab 03/24/22 05/04/22 Rx RX: HYDROcodone/APAP 5-325MG 1 tab PO Q4HR PRN 04/03/22 05/04/22 History [[place] 5-325] Ipratropium-Albuterol Nebulize 3 ml INHALATION RT-QID PRN 05/04/22 05/04/22 History [Duoneb 0.5 mg-3 mg/3 ml Soln] Lidocaine 5% Patch [Lidoderm] 1 patch TOPICAL DAILY PRN 05/04/22 05/04/22 His tory RX: Folic Acid-Vit B Complex-Vit C 1 cap PO DAILY 05/04/22 05/04/22 History [Nephrocaps] Allergies Allergy/AdvReac Type Severity Reaction Status Date / Time cephalexin [From Keflex] Allergy Rash/Hives Verified 05/04/22 22:10 codeine Allergy Rash/Hives Verified 05/04/22 22:10 atorvastatin AdvReac ACHES AND Verified 05/04/22 22:10 WEAKNESS lisinopril AdvReac DRY COUGH Verified 05/04/22 22:10 metoprolol AdvReac DRY COUGH Verified 05/04/22 22:10 rosuvastatin [From Crestor] AdvReac ACHES AND Verified 05/04/22 22:10 WEAKNESS Surgical - Exam Vital Signs Pulse Resp BP Pulse Ox 62 18 204/87 94 L 05/04/22 19:53 05/04/22 19:53 05/04/22 19:53 05/04/22 19:53 CONSTITUTIONAL: Awake and alert, appears comfortable, cooperative, well- developed, well-nourished, no pain, no acute distress, sitting up at the bedside eating breakfast EYES: Pupils equal, round, reactive to light, normal ocular movement ENT: Moist mucous membranes without oral lesions present NECK: No masses, no bruits, trachea midline RESPIRATORY: Lungs sounds diminished on the right side. Respirations even, nonlabored. Currently on room air with oxygen saturation 91-95%. Strong cough CARDIOVASCULAR: S1, S2 present. Regular rate and rhythm, sinus rhythm on telemetry. Palpable peripheral pulses bilaterally. No edema present GASTROINTESTINAL: Abdomen soft, nontender, nondistended without masses or organomegaly noted. There is no rebound or guarding present. Active bowel sounds present 4 quadrants. GENITOURINARY: Deferred INTEGUMENTARY: Skin is warm and dry with evidence of good perfusion. NEUROLOGIC: Cranial nerves II through XII intact, normal coordination, no obvious motor or sensory deficits, speech is normal MUSKULOSKELETAL: Able to move all extremities, strength equal bilaterally, normal posture PSYCHIATRIC: Alert and oriented to person place and time, appropriate affect, intact judgment and insight Results - Labs 05/05/22 05:48 05/05/22 05:48 Abnormal Lab Results - Last 24 Hours (Table) 05/06/22 05/07/22 05/07/22 Range/Units 08:12 11:55 16:50 POC Glucose (mg/dL) 276 H 140 H (70-110) mg/dL Urine Protein 3+ H (Negative) Urine Glucose (UA) 3+ H (Negative) Urine Blood Trace H (Negative) 05/07/22 05/08/22 Range/Units 20:28 06:13 POC Glucose (mg/dL) 128 H 172 H (70-110) mg/dL Urine Protein (Negative) Urine Glucose (UA) (Negative) Urine Blood (Negative) Microbiology - Last 24 Hours (Table) 05/06/22 13:02 Blood Culture - Preliminary Blood No Growth after 24 hours - Imaging Chest x-ray: report reviewed, image reviewed CT scan - chest: report reviewed, image reviewed Additional studies: Echocardiogram report reviewed Assessment and Plan Assessment: Recurrent pleural effusions status post left-sided as well as right-sided thoracentesis and subsequent placement of right-sided Pleurx catheter 03/21/22 End-stage renal disease with hemodialysis Thursday/Thursday/Thursday Shortness of breath, secondary to above Coronary artery disease status post CABG in [address] [place] 1 year ago Heart failure with preserved ejection fraction, proBNP 89,200 on admission Mitral regurgitation, trace to mild on current echo Hypertension Diabetes Hyperlipidemia Previous tobacco dependence Plan: I evaluated the patient, reviewed the chart and the imaging studies. Etiology of persistent effusion is likely combined renal/heart failure. BNP on admission 89,200. Cytologies and pleural biopsies are negative. There are no pulmonary infiltrates on CT to suggest pulmonary disease amenable to lung biopsy. PleurX catheter is in good position and draining well. No indication for further hansen rgical intervention at this time. Medical management for CRI/ CHF. Cornell Stewart MD The patient was seen and examined sitting up at the bedside eating breakfast this morning on a medical surgical unit in no acute distress. Denies any current chest pain or shortness of breath. He has no current complaints. Surgical biopsy of the right pleural was sent in February when Pleurx catheter was placed, resulted in benign fibroadipose tissue and skeletal muscle with mild chronic inflammation, fibrosis. Pleural fluid has been sent for pathology 3 times, resulting in reactive mesothelial cells without malignancy. Computed tomography scan demonstrates Pleurx catheter is present within the right-sided effusion. Patient's Pleurx catheter has continued to be drained and in fact was drained Thursday. Will discuss the case in detail with Dr. Stewart and make further recommendations as appropriate. Continue medical management per internal medicine service. I have personally seen and examined the patient, performed the documentation and the assessment and plan as written. Number of minutes spent on the visit: 30. DOE Rajan
[2022-05-08] MEDS: hydrALAZINE HCL 25 MG TAB PO SCH ×3 (09:12→22:19)
[2022-05-08] MEDS: carvediloL 3.125 MG TAB PO SCH ×2 (09:13→22:19)
[2022-05-08] MEDS: CALCIUM ACETATE 667 MG TAB PO SCH ×4 (09:13→22:19)
[2022-05-08] MEDS: ASPIRIN 81 MG PO SCH (09:13)
[2022-05-08] MEDS: amLODIPine 10 MG TAB PO SCH (09:13)
[2022-05-08] MEDS: CLOPIDOGREL 75 MG TAB PO SCH (09:13)
[2022-05-08] MEDS: DAPAGLIFLOZIN PROPANEDIOL 10 MG TABLET PO SCH (09:14)
[2022-05-08] MEDS: TORSEMIDE 20 MG TAB PO SCH (09:14)
[2022-05-08] MEDS: FOLIC ACID-VIT B COMPLEX-VIT C 1 CAP PO SCH (09:14)
[2022-05-08] MEDS: ESCITALOPRAM 20 MG TAB PO SCH (09:18)
[2022-05-08 11:35] LABS: Glucose,Whole Blood 204 mg/dL (70-110)
--- NOTE | 2022-05-08 12:28 | P.PN ---
Subjective Progress Note Date: 05/08/22 This is a pleasant 72-year-old male patient with a known history of coronary artery disease with previous coronary artery bypass grafting, end-stage renal disease receiving hemodialysis on Thursday, recurrent pleural effusions with subsequent Pleurx catheter placement on 03/21/2022, former smoker, hypertension, hyperlipidemia. Pleural biopsies during Pleurx catheter placement on 03/24/2022 revealed no malignancy. Recent PET scan from 04/25/2022 revealed no suspicious radiotracer activity. He presented here again to the emergency room yesterday with complaints of increasing shortness of breath and concerns regarding Pleurx catheter being drained effectively. Chest x-ray reveals interval progression of left basilar airspace opacities compared to 04/24/2022. Persistent right small pleural effusion. Right Pleurx catheter in appropriate position. White count 8.1. Hemoglobin 9.7. Sodium 137. Potassium 4.5. BUN 29. Creatinine 5.92. Glucose 157. ProBNP 89,200. He is seen today in consultation on the regular medical floor. He is currently sitting up in bed. Awake and alert in no acute distress. He is maintaining good O2 saturations in the high 90s on 4 L/m per nasal cannula. He's been afebrile. Somewhat hypertensive. Plan is for hemodialysis with ultrafiltration with 2-3 L tolerated. The patient is seen today 05/06/2022 in follow-up on the regular medical floor. He remains awake and alert in no acute distress. Maintaining O2 saturations up to 100% on 4 L/m per nasal cannula. Afebrile. Somewhat hypertensive still. Did have hemodialysis yesterday with 3 L of fluid removed. He did have 100 ML's of serosanguineous fluid removed from the Pleurx catheter yesterday as well. Blood glucose 219. C-reactive protein 3.4. Pro-calcitonin 0.18. He has been put on cefepime per ID services. Remains on diuretics. Chest x-ray reveals right Pleurx catheter in stable position. Small similar bilateral pleural effusions with right greater than left adjacent airspace opacities. Persistent cardiomegaly. Limited echocardiogram reveals preserved left ventricular systolic function with ejection fraction 50-55%. The patient is seen today 05/07/2022 in follow-up on the regular medical floor. Currently resting flat in bed. Awake and alert in no acute distress. Maintaining O2 saturations in the upper 90s on 2 L nasal cannula. Blood glucose 166. Maintained on cefepime per ID services. Nolan on oral diuretics. Continues on a Thursday hemodialysis schedule. The patient is seen today 05/08/2022 in follow-up on the regular medical floor. He is awake and alert in no acute distress. Resting comfortably in bed. No worsening shortness of breath, cough or congestion. He is maintaining good O2 saturations in the 90s on 2 L/m per nasal cannula. Afebrile. Chest x-ray reveals chronic changes and cardiomegaly with right-sided volume loss and bilateral lower lung acute infiltrate/atelectasis. Stable right small pleural effusion with Pleurx catheter in place. No significant change compared to previous. Blood cultures revealed no growth. Blood sugar 172. 3 L removed with hemodialysis yesterday. Objective - Vital Signs Vital signs: Vital Signs Temp 98.4 F 05/08/22 01:17 Pulse 60 05/08/22 01:17 Resp 16 05/08/22 01:17 BP 104/44 05/08/22 01:17 Pulse Ox 94 L 05/08/22 01:17 FiO2 Intake & Output 05/07/22 05/08/22 05/08/22 18:59 06:59 18:59 Intake Total 236 120 Output Total 3000 Balance 236 -3000 120 Intake: Oral 236 120 Output: Hemodialysis 3000 Other: Voiding Method Toilet # Voids 1 1 - Exam GENERAL EXAM: Alert, pleasant 72-year-old male, on 2 L nasal cannula, comfortable in no apparent distress. HEAD: Normocephalic. EYES: Normal reaction of pupils, equal size. NOSE: Clear with pink turbinates. THROAT: No erythema or exudates. NECK: No masses, no JVD. CHEST: No chest wall deformity. Right sided Pleurx catheter secured in place. LUNGS: Equal air entry with few scattered crackles, diminished in the right base. CVS: S1 and S2 normal with no audible murmur, regular rhythm. ABDOMEN: No hepatosplenomegaly, normal bowel sounds, no guarding or rigidity. SPINE: No scoliosis or deformity SKIN: No rashes CENTRAL NERVOUS SYSTEM: No focal deficits, tone is normal in all 4 extremities. EXTREMITIES: Left upper extremity with AV fistula There is no peripheral edema. No clubbing, no cyanosis. Peripheral pulses are intact. - Labs CBC & Chem 7: 05/05/22 05:48 05/05/22 05:48 Labs: Abnormal Lab Results - Last 24 Hours (Table) 05/07/22 05/07/22 05/08/22 Range/Units 16:50 20:28 06:13 POC Glucose (mg/dL) 140 H 128 H 172 H (70-110) mg/dL 05/08/22 Range/Units 11:33 POC Glucose (mg/dL) 204 H (70-110) mg/dL Microbiology - Last 24 Hours (Table) 05/06/22 13:02 Blood Culture - Preliminary Blood No Growth after 24 hours Assessment and Plan Assessment: Acute hypoxic respiratory failure secondary to fluid volume overload. No clear evidence of pneumonia. ProCalcitonin 0.18. Placed on cefepime per ID service History of end-stage renal disease receiving hemodialysis Thursday schedule via left upper extremity AV fistula History of recurrent right-sided pleural effusion status post Pleurx catheter placement 03/21/2022. Pathology was negative for malignancy. PET scan 04/27/2022 revealed no radiotracer uptake History of coronary disease with previous coronary artery bypass grafting Diabetes mellitus Hyperlipidemia Hypertension History of depression Former smoker Plan: The patient was seen and evaluated Chest x-ray and medications reviewed Continue diuretics Antibiotics per ID services Family has ordered his home oxygen Cleared for discharge from the pulmonary standpoint We will see as needed I have personally seen and examined the patient, performed the documentation and the assessment and plan as written. Number of minutes spent on the visit: 10.
--- NOTE | 2022-05-08 13:23 | P.PN ---
Subjective Patient is seen for follow-up for end-stage renal disease. He is scheduled for HD in a.m. No significant complaints today. Pathology was negative for malignancy. Evaluated by cardiothoracic surgery with no plans for any further intervention. 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 End-stage renal disease on hemodialysis on a Thursday schedule 2. Volume overload 3. Chronic right pleural effusion with Pleurx catheter with no evidence of malignancy on path report. 4. CK D mineral bone disorder 5. Hypertension with CK D stage V Plan: Hemodialysis in a.m. with goal UF of about 2-3 L as tolerated
--- NOTE | 2022-05-08 14:03 | P.PN ---
Subjective Progress Note Date: 05/08/22 Principal diagnosis: Fever and possible pneumonia Patient is a 72-year-old male with a past medical history significant for diabetes mellitus hypertension hyperlipidemia renal insufficiency coronary disease, right-sided Pleurx catheter for recurrent pleural effusion presenting to the hospital for evaluation of increasing shortness of breath, patient did have a fever during this admission initial x-ray was suspicious for possible left basilar air space density with progression and concern for possible pneumonia. On today's evaluation that is 05/08/2022, the patient remains to be afebrile, the patient is breathing comfortably on room air, patient denies having any chest pain, the patient did have occasional cough but no sputum production no nausea no vomiting no abdominal pain no diarrhea Objective - Vital Signs Vital signs: Vital Signs Temp 98.4 F 05/08/22 01:17 Pulse 60 05/08/22 01:17 Resp 16 05/08/22 01:17 BP 104/44 05/08/22 01:17 Pulse Ox 94 L 05/08/22 01:17 FiO2 Intake & Output 05/07/22 05/08/22 05/08/22 18:59 06:59 18:59 Intake Total 236 120 Output Total 3000 Balance 236 -3000 120 Intake: Oral 236 120 Output: Hemodialysis 3000 Other: Voiding Method Toilet # Voids 1 1 - Exam GENERAL DESCRIPTION: An elderly male lying in bed in no distress RESPIRATORY SYSTEM: Unlabored breathing , decreased breath sounds at bases HEART: S1 S2 regular rate and rhythm , ABDOMEN: Soft , no tenderness EXTREMITIES: No edema feet - Labs CBC & Chem 7: 05/05/22 05:48 05/05/22 05:48 Labs: Abnormal Lab Results - Last 24 Hours (Table) 05/07/22 05/07/22 05/07/22 Range/Units 11:55 16:50 20:28 POC Glucose (mg/dL) 276 H 140 H 128 H (70-110) mg/dL 05/08/22 Range/Units 06:13 POC Glucose (mg/dL) 172 H (70-110) mg/dL Microbiology - Last 24 Hours (Table) 05/06/22 13:02 Blood Culture - Preliminary Blood No Growth after 24 hours Assessment and Plan (1) Fever Current Visit: Yes Status: Acute Code(s): R50.9 - FEVER, UNSPECIFIED SNOMED Code(s): 072901948 Plan: 1patient presented to hospital with increasing shortness of breath which is likely multifactorial in this patient who did have history of end-stage disease on dialysis and also have a right-sided pleural his catheter for chronic effusion patient did have a fever that is slightly concerning for possible pulmonary source as the patient abdominal was soft with examination no evidence of any cellulitis or joint swelling. 2patient did have a negative influenza RSV and COVID PCR 3patient fever has resolved blood cultures has been negative patient to continue with the cefepime transitioned to oral antibiotic on discharge Time with Patient: Less than 30
[2022-05-08 16:48] LABS: Glucose,Whole Blood 229 mg/dL (70-110)
[2022-05-08 20:11] LABS: Glucose,Whole Blood 227 mg/dL (70-110)
[2022-05-09] MEDS: CEFEPIME 1 GM in SODIUM CHLORIDE 0.9% 50 ML IVPB SCH ×2 (01:47→16:28)
[2022-05-09 06:08] LABS: Glucose,Whole Blood 146 mg/dL (70-110)
[2022-05-09] MEDS: PANTOPRAZOLE 40 MG TABLET PO SCH (06:30)
[2022-05-09 08:03] VITALS: BMI 28.5
[2022-05-09] MEDS: CALCIUM ACETATE 667 MG TAB PO SCH ×2 (08:15→14:11)
--- NOTE | 2022-05-09 09:33 | P.PN ---
Subjective Progress Note Date: 05/09/22 Principal diagnosis: Heart failure with preserved ejection fraction The patient is a pleasant 72-year-old gentleman with a past medical history significant for CAD with prior CABG and stenting with unknown details performed at [facility] and currently the patient does not follow up with any camp manager as well as heart failure with preserved ejection fraction with an echo in 2022 showing preserved LV function was mild to moderate mitral regurgitation as well as into stage renal disease on hemodialysis 3 times a week as well as hypertension and dyslipidemia and also chronic right pleural effusion currently he does have a drainage catheter placed there chronically is here for further cardiac evaluation. The patient was in his usual state of health yesterday when he went to bed and suddenly he developed shortness of breath. No associated chest pain or chest discomfort and no dizziness or lightheadedness and no feeling of heart racing or fluttering and no presyncope or syncope. No lower extremities decided to come to the emergency department. He underwent further investigation including an EKG which showed sinus mechanism as well as INSULATION CUTTER proBNP which came in to be significantly elevated. 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 He stated that the right chest drainage has been working effectively. He was ruled out for cancer and he underwent extensive workup regarding the recurrent right pleural effusion. The patient also was found to be hypertensive. He remains hypertensive with systolic pressure consistent with stage II hypertension. He states that he has been compliant with all of his medications including the blood pressure medications. Also he stated that he has been compliant with his diet. Also he stated that he has been compliant with his dialysis. The examination is remarkable for elevated blood pressure as well as diminished breathing sounds over the right chest with regular rhythm and distant heart sounds as well as systolic murmur was here at the right as well as left upper sternal border. 05/07/2022 The patient was seen and evaluated this morning. He is feeling better. The pressure remains elevated. I'm going to increase the dose of hydralazine to 25 mg by mouth 3 times a day. He continues to be on by mouth diuretics. The echo revealed normal left ventricle systolic function was no significant valvular abnormalities. At this point I recommended continue the current medical regimen increase the dose of hydralazine and monitor the patient for additional 24 hours. On examination he seems to be somewhat euvolemic beside diminished br eathing sounds bilaterally with a regular rhythm and mild bilateral lower extremities edema. May 082022 The patient was seen and evaluated this morning. He stated that he is feeling better. He underwent hemodialysis yesterday. Also the dose of hydralazine was increased yesterday. The pressure is somewhat slightly better. He reports no pain in the chest and he stated that the shortness of breath has improved. On examination he does have regular rhythm with diminished breathing sounds bilaterally and very mild bilateral lower extent his edema. May 092022 The patient was seen and evaluated this morning. Currently he is undergoing dialysis. He is otherwise stable and asymptomatic. He continues to be hypertensive. I'm going to increase the dose of hydralazine from 25 mg by mouth 3 times a day to 50 mg by mouth 3 times a day. He is potentially going to be discharged home after dialysis today. Assessment Hypertension crisis complicated by heart failure Heart failure with preserved ejection fraction exacerbation Valvular heart disease with mitral regurgitation End stage renal disease on dialysis 3 times a week Recurrent right pleural effusion Multiple comorbid conditions including hypertension and dyslipidemia Coronary artery disease with prior revascularization Plan Increase the dose of hydralazine The patient can be discharged home and we will follow-up with the patient on when necessary case Objective - Vital Signs Vital signs: Vital Signs Temp 98.5 F 05/09/22 07:02 Pulse 64 05/09/22 07:02 Resp 18 05/09/22 07:02 BP 183/83 05/09/22 07:02 Pulse Ox 97 05/09/22 07:02 FiO2 Intake & Output 05/08/22 05/09/22 05/09/22 18:59 06:59 18:59 Intake Total 120 Balance 120 Weight 106.594 kg Intake: Oral 120 Other: Voiding Method Toilet Toilet # Voids 3 1 - Labs CBC & Chem 7: 05/05/22 05:48 05/05/22 05:48 Labs: Abnormal Lab Results - Last 24 Hours (Table) 05/08/22 05/08/22 05/08/22 Range/Units 11:33 16:47 20:10 POC Glucose (mg/dL) 204 H 229 H 227 H (70-110) mg/dL 05/09/22 Range/Units 06:06 POC Glucose (mg/dL) 146 H (70-110) mg/dL Microbiology - Last 24 Hours (Table) 05/06/22 13:02 Blood Culture - Preliminary Blood No Growth after 48 hours
[2022-05-09 11:31] LABS: Glucose,Whole Blood 140 mg/dL (70-110)
[2022-05-09] MEDS: ASPIRIN 81 MG PO SCH (11:34)
[2022-05-09] MEDS: ESCITALOPRAM 20 MG TAB PO SCH (11:34)
[2022-05-09] MEDS: carvediloL 3.125 MG TAB PO SCH (11:34)
[2022-05-09] MEDS: CLOPIDOGREL 75 MG TAB PO SCH (11:34)
[2022-05-09] MEDS: amLODIPine 10 MG TAB PO SCH (11:34)
[2022-05-09] MEDS: TORSEMIDE 20 MG TAB PO SCH (11:35)
[2022-05-09] MEDS: FOLIC ACID-VIT B COMPLEX-VIT C 1 CAP PO SCH (11:35)
[2022-05-09] MEDS: DAPAGLIFLOZIN PROPANEDIOL 10 MG TABLET PO SCH (11:35)
[2022-05-09 12:43] VITALS: RESP 19
[2022-05-09] MEDS: hydrALAZINE HCL 25 MG TAB PO SCH (13:11)
[2022-05-09 15:22] VITALS: BP 127/51; TEMP 97.7
--- NOTE | 2022-05-09 15:28 | P.PN ---
Subjective Patient is seen for follow-up for end-stage renal disease. He is seen on HD today No significant complaints today. Pathology was negative for malignancy. Evaluated by cardiothoracic surgery with no plans for any further intervention. 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 End-stage renal disease on hemodialysis on a Thursday schedule 2. Volume overload 3. Chronic right pleural effusion with Pleurx catheter with no evidence of malignancy on path report. 4. CK D mineral bone disorder 5. Hypertension with CK D stage V Plan: Hemodialysis today with goal UF of about 2-3 L as tolerated
[2022-05-09] MEDS ORDERED: hydrALAZINE HCL 50 MG TAB PO SCH (16:00)
--- NOTE | 2022-05-09 16:04 | P.PN ---
Subjective Progress Note Date: 05/09/22 Principal diagnosis: Fever and possible pneumonia Patient is a 72-year-old male with a past medical history significant for diabetes mellitus hypertension hyperlipidemia renal insufficiency coronary disease, right-sided Pleurx catheter for recurrent pleural effusion presenting to the hospital for evaluation of increasing shortness of breath, patient did have a fever during this admission initial x-ray was suspicious for possible left basilar air space density with progression and concern for possible pneumonia. On today's evaluation that is 05/09/2022, the patient continues to be afebrile, the patient is breathing comfortably on 2 L nasal cannula oxygen, patient denies having any chest pain, the patient did have occasional cough which has decreased in intensity, no sputum production no abdominal pain or diarrhea Objective - Vital Signs Vital signs: Vital Signs Temp 98.5 F 05/09/22 07:02 Pulse 63 05/09/22 11:32 Resp 18 05/09/22 07:02 BP 184/70 05/09/22 11:32 Pulse Ox 97 05/09/22 07:02 FiO2 Intake & Output 05/08/22 05/09/22 05/09/22 18:59 06:59 18:59 Intake Total 120 Balance 120 Weight 106.594 kg Intake: Oral 120 Other: Voiding Method Toilet Toilet # Voids 3 1 - Exam GENERAL DESCRIPTION: An elderly male lying in bed in no distress RESPIRATORY SYSTEM: Unlabored breathing , decreased breath sounds at bases HEART: S1 S2 regular rate and rhythm , ABDOMEN: Soft , no tenderness EXTREMITIES: No edema feet - Labs CBC & Chem 7: 05/05/22 05:48 05/05/22 05:48 Labs: Abnormal Lab Results - Last 24 Hours (Table) 05/08/22 05/08/22 05/09/22 Range/Units 16:47 20:10 06:06 POC Glucose (mg/dL) 229 H 227 H 146 H (70-110) mg/dL 05/09/22 Range/Units 11:29 POC Glucose (mg/dL) 140 H (70-110) mg/dL Microbiology - Last 24 Hours (Table) 05/06/22 13:02 Blood Culture - Preliminary Blood No Growth after 48 hours Assessment and Plan (1) Fever Current Visit: Yes Status: Acute Code(s): R50.9 - FEVER, UNSPECIFIED SNOMED Code(s): 477881128 Plan: 1patient presented to hospital with increasing shortness of breath which is likely multifactorial in this patient who did have history of end-stage disease on dialysis and also have a right-sided pleural his catheter for chronic effusion patient did have a fever that is slightly concerning for possible pulmonary source as the patient abdominal was soft with examination no evidence of any cellulitis or joint swelling. 2patient did have a negative influenza RSV and COVID PCR 3patient fever has resolved blood cultures has been negative patient seemed to have shown clinical improvement with the cefepime plan is to transitioned to ora l Ceftin on discharge, I discussed with admitting physician Time with Patient: Less than 30
[2022-05-09 16:21] LABS: Glucose,Whole Blood 330 mg/dL (70-110)
[2022-05-09 16:46] VITALS: PULSE 68
[2022-05-09 16:53] LABS: Glucose,Whole Blood 332 mg/dL (70-110)
--- NOTE | 2022-05-09 16:54 | DS ---
DISCHARGE SUMMARY DISCHARGE MEDICATIONS: 1. Hydralazine 50 mg t.i.d. 2. Omnicef 300 mg b.i.d., for 7 days. 3. Plavix 75 mg daily. 4. PhosLo 667 q.i.d. 5. Demadex 40 mg daily. 6. Jardiance 25 mg daily. 7. Norvasc 10 mg daily. 8. [place] 5/325 p.r.n. for pain. 9. Protonix 40 mg daily. 10.Lexapro 20 mg daily. 11.Coreg 3.125 b.i.d. 12.Tramadol 50 mg q.6 to 8 hours p.r.n. 13.Lidocaine patch 5% apply daily. 14.Folic acid daily. 15.Aspirin 81 mg daily. 16.DuoNeb updrafts q.i.d. CONDITION: Stable. PROGNOSIS: Guarded. FOLLOWUP: Follow up in the office in a week. HOSPITAL COURSE: The patient was admitted with [id number] renal failure, increased shortness of breath secondary to fluid overload, some systolic heart failure, pulmonary hypertension, and advanced COPD. He is going to go home on oxygen at nighttime at home. He is going to continue on his pleural catheter that was checked , and no further biopsies were needed on the lung. He was treated with fluid overload and with antibiotics for possible pneumonia and was switched to oral antibiotics. He had 2 to 3 dialysis treatments here. His breathing greatly improved. He is saturating 93% on room air sitting down during the day, and at the nighttime, low. He is going to wear oxygen at home at nighttime. Follow up in the office in a week. CONDITION: Stable. PROGNOSIS: Guarded. MMODL / IJN: [id number] /
[2022-05-09] MEDS ORDERED: CEFDINIR 300 MG CAP PO SCH (21:00)
== END 2022-05-09 17:49 | disposition home health service (06) | DRG 189 ==
LOC: EC 19:45 → 4SSUR 22:59
PROVIDERS: ADMIT Family Medicine; ATTEND Family Medicine
PROC: 5A1D70Z Performance of Urinary Filtration, Intermittent, Less than 6 Hours Per Day (ICD-10-PCS; principal; 2022-05-05)
DX: J96.01 Acute respiratory failure with hypoxia (principal); I50.33 Acute on chronic diastolic (congestive) heart failure; N18.6 End stage renal disease; J18.9 Pneumonia, unspecified organism; I13.2 Hypertensive heart and chronic kidney disease with heart failure and with stage 5 chronic kidney disease, or end stage renal disease; N17.9 Acute kidney failure, unspecified; J44.0 Chronic obstructive pulmonary disease with (acute) lower respiratory infection; J90 Pleural effusion, not elsewhere classified; I16.9 Hypertensive crisis, unspecified; J98.11 Atelectasis; I27.20 Pulmonary hypertension, unspecified; E83.9 Disorder of mineral metabolism, unspecified; C45.9 Mesothelioma, unspecified; E11.22 Type 2 diabetes mellitus with diabetic chronic kidney disease; Z99.2 Dependence on renal dialysis; Z20.822 Contact with and (suspected) exposure to COVID-19; I25.10 Atherosclerotic heart disease of native coronary artery without angina pectoris; E78.5 Hyperlipidemia, unspecified; I34.0 Nonrheumatic mitral (valve) insufficiency; F32.A Depression, unspecified; D64.9 Anemia, unspecified; Z79.82 Long term (current) use of aspirin; Z79.02 Long term (current) use of antithrombotics/antiplatelets; Z79.84 Long term (current) use of oral hypoglycemic drugs; Z79.899 Other long term (current) drug therapy; Z95.1 Presence of aortocoronary bypass graft; Z87.891 Personal history of nicotine dependence; Z88.1 Allergy status to other antibiotic agents; Z88.5 Allergy status to narcotic agent; Z88.8 Allergy status to other drugs, medicaments and biological substances
CPT/HCPCS: 36415; 71045; 71046; 71250; 80053; 81001; 83880; 84145; 84484; 85025; 85610; 85730; 86140; 87040; 87636; 90935; 93005; 93308; 94640; 94760; 96374; 96376; 99285

== ENCOUNTER → 2022-05-16 | Outpatient (CLI) | payer MEDICARE ==
[2022-05-16 09:10] LABS: INR 1.1 (<1.2); Partial Thromboplastin Time 26.4 sec (22.0-30.0); Prothrombin Time 11.8 sec (9.0-12.0)
[2022-05-16 10:48] LABS: Basophils # (A) 0.08 X 10*3/uL (0.00-0.10); Basophils % (A) 1.1 %; Eosinophils # (A) 0.15 X 10*3/uL (0.04-0.35); Eosinophils % (A) 2.1 %; HGB 8.7 g/dL (13.0-17.0); Immature Grans, Automated 0.4 %; Lymphocytes # (A) 0.87 X 10*3/uL (0.90-5.00); Lymphocytes % (A) 12.4 %; MCH 30.6 pg (27.0-32.0); MCHC 31.1 g/dL (32.0-37.0); MCV 98.6 fL (80.0-97.0); Mean Platelet Volume 10.7 fL (9.5-12.2); Monocytes # (A) 0.61 X 10*3/uL (0.20-1.00); Monocytes % (A) 8.7 %; NRBC Per 100 WBC 0 /100 WBCS (0.0-0.0); Neutrophils # (A) 5.28 X 10*3/uL (1.80-7.70); Neutrophils % (A) 75.3 %; Platelet Count 188 X 10*3/uL (140-440); RBC 2.84 X 10*6/uL (4.40-5.60); RDW 16.3 % (11.5-14.5); WBC 7.02 X 10*3/uL (4.50-10.00)
[2022-05-16 10:52] LABS: Anion Gap 14.9 mmol/L (10.00-18.00); Non-African American GFR(CKD) 9.5 (60.0-200.0); Potassium 4.5 mmol/L (3.5-5.5)
== END | disposition home or self-care (01) ==
LOC: LABPAT 07:53
PROVIDERS: ATTEND Internal Medicine
DX: Z01.812 Encounter for preprocedural laboratory examination (principal); E11.9 Type 2 diabetes mellitus without complications; Z77.090 Contact with and (suspected) exposure to asbestos; E87.70 Fluid overload, unspecified; R58 Hemorrhage, not elsewhere classified
CPT/HCPCS: 80051; 82565; 82947; 85025; 85610; 85730; 86850; 86900; 86901

== ENCOUNTER 2022-06-17 10:04 | Inpatient (IN) | payer MEDICARE ==
[~2022-06-17 10:04] MED LIST: LACTATED RINGERS 1,000 ML IV SCH; ONDANSETRON 4 MG/2 ML VIAL IVP ONE; fentaNYL (PF) 50 MCG/ML 2 ML AMP IV PRN
[2022-06-17] MEDS ORDERED: MIDAZOLAM 2 MG/2 ML VIAL IVP ONE (10:56)
[2022-06-17] MEDS ORDERED: fentaNYL (PF) 50 MCG/ML 2 ML AMP IVP ONE (10:56)
[2022-06-17] MEDS: DEXAMETHASONE SOD PHOSPHATE 4 MG/ML 1 ML VIAL IV ONE (11:28)
[2022-06-17 11:53] LABS: Anisocytosis Slight; Basophils % (A) 0 %; Eosinophils # (A) 0.2 k/uL (0-0.7); Eosinophils % (A) 4 %; HCT 35.2 % (39.0-53.0); Lymphocytes # (A) 0.7 k/uL (1.0-4.8); Lymphocytes % (A) 11 %; MCH 30.1 pg (25.0-35.0); MCHC 31.3 g/dL (31.0-37.0); MCV 96.1 fL (80.0-100.0); Mean Platelet Volume 8.4; Monocytes # (A) 0.5 k/uL (0-1.0); Monocytes % (A) 8 %; Neutrophils # (A) 4.7 k/uL (1.3-7.7); Neutrophils % (A) 74 %; Platelet Count 204 k/uL (150-450); RBC 3.66 m/uL (4.30-5.90); RDW 16.3 % (11.5-15.5); WBC 6.3 k/uL (3.8-10.6)
[2022-06-17] MEDS ORDERED: SODIUM CHLORIDE 0.9% (PF) 10 ML VIAL ONE (12:04)
[2022-06-17] MEDS ORDERED: ROCURONIUM 10 MG/ML (5 ML VIAL) IV ONE (12:04)
[2022-06-17] MEDS ORDERED: GLYCOPYRROLATE 0.2 MG/ML 2 ML VIAL ONE (12:04)
[2022-06-17] MEDS ORDERED: ROPIVACAINE 5 MG/ML 30 ML VIAL ONE (12:04)
[2022-06-17] MEDS ORDERED: fentaNYL (PF) 50 MCG/ML 2 ML AMP ONE (12:04)
[2022-06-17] MEDS ORDERED: DEXAMETHASONE SOD PHOSPHATE 4 MG/ML 1 ML VIAL ONE (12:04)
[2022-06-17] MEDS ORDERED: MIDAZOLAM 2 MG/2 ML VIAL ONE (12:04)
[2022-06-17] MEDS ORDERED: PROPOFOL 10 MG/ML 20 ML VIAL IV ONE (12:04)
[2022-06-17] MEDS ORDERED: NEOSTIGMINE 1 MG/ML 10 ML VIAL ONE (12:04)
[2022-06-17] MEDS ORDERED: SUCCINYLCHOLINE CHLORIDE 200 MG/10 ML VIAL IV ONE (12:04)
[2022-06-17 12:05] LABS: Albumin 3.6 g/dL (3.5-5.0); Calcium 9.2 mg/dL (8.4-10.2); Potassium 4.5 mmol/L (3.5-5.1); Total Bilirubin 0.6 mg/dL (0.2-1.3); Total Protein 6.8 g/dL (6.3-8.2)
[2022-06-17 12:47] LABS: INR 1.1 (<1.2); Prothrombin Time 11.7 sec (9.0-12.0)
[2022-06-17] MEDS ORDERED: BUPIVACAINE (PF) 0.25% 30 ML VIAL SQ ONE ×2 (12:49→13:27)
[2022-06-17] MEDS ORDERED: LACTATED RINGERS 1,000 ML IV ONE (13:17)
--- NOTE | 2022-06-17 13:39 | P.ANPRN ---
Procedure Note - Anesthesia - Nerve Block Performed Right Erector Spinae Single Time Out Performed: Yes Date of Procedure: 06/17/22 Procedure Start Time: Procedure Stop Time: Location of Patient: PreOp Indication: Acute Post-Operative Pain, Requested by Surgeon Sedation Type: Sedate with meaningful contact maintained Preparation: Sterile Prep Position: Prone Needle Types: Pajunk Needle Gauge: 21 Ultrasound used to visualize needle placement: Yes Ultrasound used to observe medication spread: Yes Blood Aspirated: No Pain Paresthesia on Injection Noted: No Resistance on Injection: Normal Image Stored and Saved: Yes Events: Uneventful and Well Tolerated (Ropivacaine 0.5% 15 mL plus normal saline 10 mL plus dexamethasone 4 mg given at T6)
--- NOTE | 2022-06-17 14:19 | P.OP ---
Date of Procedure: 06/17/22 Preoperative Diagnosis: 1. Right pleural thickening with pleural plaque and pulmonary calcification 2. CAD s/p CABG x 6 with BIMA Postoperative Diagnosis: Same Procedure(s) Performed: 1. Bronchoscopy 2. Right video assisted thorascopic surgery with pleural biopsy 3. Removal of pleurX Anesthesia: GETA Surgeon: Maury Wilkinson Estimated Blood Loss (ml): 10 Pathology: other (Pleural biopsy x 3, pleural fluid for cytology) Condition: stable Disposition: PACU Indications for Procedure: This patient is a 72 year-old with multiple medical problems who had a CABG x 6 last year at an outside hospital and he presented to our hospital with a right sided pleural effusion and sob. CT scan showed pleural pleural thickening and calcification. He also has a hx of recurrent R sided effusion and cytology had been inconclusive. In February I took the patient to the operating room for pleurX insertion and pleural biopsy which was inconclusive. The pleurX has stopped draining and the patient and the family are continuing to have significant anxiety about a diagnosis. I offered to remove the pleurX and attempt pleural biopsy one more time. Operative Findings: Very thick pleural rind present. Three separate biopsies taken. Some fluid in the posterior gutter near the pleurx aspirated and sent for cytology. Description of Procedure: The patient underwent arterial line placement in the pre-operative suite. He was brought back to the operating room and placed in the supine position. He was intubated with a 41F GA. He was positioned in the left lateral decubitus position and bronchoscopy was performed to confirm tube placement and for diagnostic purposes. The right lung was free of endobronchial lesions and there were minimal secretions. The right lung was isolated. I made a 2cm incision in the 7th ICS posterior axillary line. I gained entry into the chest under direct vision. The camera was inserted into an obvious posterior gutter. The lung had significant thick rind and appeared trapped. The pleurx was in the gutter sitting in a fluid pocket which was aspirated and sent for cytology. Another 2cm incision was made in the 9th ICS mid axillary line. The thorascopic spatula was used to core out three separate pieces of the the pleural rind. The chest cavity was irrigated and a chest tube was left via the inferior incision. The posterior incision was closed in layers and 2 lung ventilation was resumed.
[2022-06-17] MEDS: hydrALAZINE HCL 20 MG/ML 1 ML VIAL IVP ONE ×2 (14:25→14:38)
--- NOTE | 2022-06-17 14:25 | XR ---
EXAMINATION TYPE: XR chest 1V portable DATE OF EXAM: 06/17/2022 COMPARISON: 05/08/2022 HISTORY: Postlung biopsy TECHNIQUE: Single frontal view of the chest is obtained. FINDINGS: A right-sided chest tube is seen no sizable pneumothorax. There is a coarsened interstitiu m and pleural based thickening in fluid noted on the right and to a lesser extent on the left. Simila r to prior exam. Postsurgical changes are noted. Clavicle slightly elevated and the right which can b e associated with AC joint injury. IMPRESSION: 1. Chronic pleural-parenchymal changes without evidence of pneumothorax.
[2022-06-17 14:42] LABS: Glucose,Whole Blood 161 mg/dL (70-110)
--- NOTE | 2022-06-17 15:00 | P.CNPUL ---
History of Present Illness Consult date: 06/17/22 Requesting physician: Maury Wilkinson Reason for consult: COPD, other (Status post right PDS cystoscopy thoracoscopic surgery with pleural biopsy and removal of Pleurx catheter) Chief complaint: Abnormal CT of the chest, abnormal pleural thickening and calcification History of present illness: This is a 72-year-old white male with history of multiple medical problems including coronary artery disease, CABG 6 last year at an outside hospital, patient also has history of end-stage renal disease, on hemodialysis, history of recurrent right-sided pleural effusion post left and right sided thoracentesis with subsequent placement of right sided Pleurx catheter. Patient also had hypertension and diabetes dyslipidemia, tobacco dependence syndrome, had multiple scans of the chest demonstrating bilateral pleural effusions right greater than left. Cytology done in the past have always been negative for malignancy, however the patient continued to have significant pleural thickening and he follows up usually with Dr. Pichardo on outpatient basis. Patient was referred to thoracic surgery for open pleural biopsy and this was done today. Today, the patient underwent bronchoscopy, right video-assisted thoracoscopic surgery with pleural biopsy, and removal of Pleurx catheter. Postoperatively I was asked to see the patient in consultation, I saw the patient in the recovery room. He was already extubated, right-sided chest tube is noted with pleural VAC. Postoperative chest x-ray showed chronic pleural parenchymal changes, no evidence of pneumothorax. Review of Systems CONSTITUTIONAL: Denies any recent significant weight loss or weight gain. EYES: Denies change in vision. EARS, NOSE, MOUTH, THROAT: Denies headaches, denies sore throat. CARDIOVASCULAR: Denies chest pain, palpitations or syncopal episodes. RESPIRATORY: Positive for shortness of breath, no cough, congestion or hemoptysis. GASTROINTESTINAL: Denies change in appetite, denies abdominal pain GENITOURINARY: Denies hematuria, denies infections. MUSKULOSKELETAL: Denies pain, denies swelling. INTEGUMENTARY: Denies rash, denies eczema. NEUROLOGICAL: Denies recent memory loss, no recent seizure activity. PSYCHIATRIC: Denies anxiety, denies depression. HEMATOLOGIC/LYMPHATIC: Denies anemia, denies enlarged lymph nodes. ROS unobtainable: due to mental status Past Medical History Past Medical History: Coronary Artery Disease (CAD), Heart Failure, Diabetes Mellitus, Dialysis, Eye Disorder, GERD/Reflux, Hearing Disorder / Deafness, Hyperlipidemia, Hypertension, Memory Impairment, Renal Disease, Seizure Disorder Additional Past Medical History / Comment(s): Currently has R sided pleux cath, 2021 CABG since then has had recurrent bilateral pleural effusions, ESRD with dialysis on M/W/F, NIDDM/diet only-has Moustapha, past L eye retinal detachment/surgery, deaf L side History of Any Multi-Drug Resistant Organisms: None Reported Past Surgical History: Adenoidectomy, Heart Catheterization With Stent, Tonsillectomy Additional Past Surgical History / Comment(s): 6 vessel coronary bypass in 2021, bilateral cataract surgery, L eye surgery for detached retina, left arm hemodialysis AV fistula; right-sided Pleurx catheter placed 03/21/22, colonoscopy, cervical surgery/benign growth. Past Anesthesia/Blood Transfusion Reactions: Previous Problems w/ Anesthesia, Postoperative Nausea & Vomiting (PONV) Additional Past Anesthesia/Blood Transfusion Reaction / Comment(s): Pt has had blood transfusion long time ago/no reaction. Date of Last Stent Placement:: 1999 at [facility]. Smoking Status: Former smoker - Past Family History Daughter(s) Family Medical History: No Reported History Father Family Medical History: Cancer Additional Family Medical History / Comment(s): Lung cancer to bone cancer Mother Family Medical History: No Reported History Medications and Allergies Home Medications Medication Instructions Recorded Confirmed Type Calcium Acetate [PhosLo] 3 cap PO BID 03/11/22 06/13/22 History Clopidogrel [Plavix] 75 mg PO QAM 03/11/22 06/17/22 History Escitalopram [Lexapro] 20 mg PO HS 03/11/22 06/17/22 History Pantoprazole [Protonix] 40 mg PO QAM 03/11/22 06/13/22 History carvediloL [Coreg] 3.125 mg PO BID 03/11/22 06/13/22 History HYDROcodone/APAP 5-325MG [Sublette 1 tab PO Q4HR PRN 04/03/22 06/17/22 History 5-325] Folic Acid-Vit B Complex-Vit C 1 cap PO QAM 05/04/22 06/13/22 History [Nephrocaps] Ipratropium-Albuterol Nebulize 3 ml INHALATION RT-QID PRN 05/04/22 06/13/22 H istory [Duoneb 0.5 mg-3 mg/3 ml Soln] Lidocaine 5% Patch [Lidoderm 5% 1 patch TOPICAL DAILY PRN 05/04/22 06/17/22 History Patch] hydrALAZINE HCL [Apresoline] 50 mg PO TID 30 Days #90 tab 05/09/22 06/13/22 Rx Aspirin 81 mg PO QAM 05/23/22 06/17/22 History Empagliflozin [Jardiance] 25 mg PO QAM 05/23/22 06/13/22 History Epoetin Unknown Dose 1 dose SQ MOWEFR 05/23/22 06/17/22 History Lansoprazole [Prevacid] 30 mg PO QAM 05/23/22 06/13/22 History Rosuvastatin Calcium [Crestor] 40 mg PO HS 05/23/22 06/17/22 History Torsemide [Demadex] 20 mg PO BID PRN 05/23/22 06/13/22 History amLODIPine [Norvasc] 10 mg PO QAM 05/23/22 06/13/22 History traMADol HCl [Ultram] 50 mg PO QID PRN 05/23/22 06/17/22 History Allergies Allergy/AdvReac Type Severity Reaction Status Date / Time cephalexin [From Keflex] Allergy Rash/Hives Verified 06/17/22 10:31 codeine Allergy Rash/Hives Verified 06/17/22 10:31 latex Allergy Rash/Hives Verified 06/17/22 10:31 atorvastatin AdvReac ACHES AND Verified 06/17/22 10:31 WEAKNESS lisinopril AdvReac DRY COUGH Verified 06/17/22 10:31 metoprolol AdvReac DRY COUGH Verified 06/17/22 10:31 Physical Exam Vitals: Vital Signs Temp Pulse Pulse Resp BP BP BP 06/17/22 14:26 54 L 16 205/88 180/62 06/17/22 14:11 60 18 214/94 195/98 06/17/22 13:56 97.3 F L 54 L 18 176/80 06/17/22 12:01 68 16 180/78 06/17/22 11:30 61 16 186/80 06/17/22 10:30 97.6 F 61 16 191/84 Pulse Ox 06/17/22 14:26 100 06/17/22 14:11 100 06/17/22 13:56 100 06/17/22 12:01 98 06/17/22 11:30 98 06/17/22 10:30 98 Intake and Output 06/16/22 06/17/22 06/17/22 22:59 06:59 14:59 Intake Total 1250 Output Total 10 Balance 1240 Intake: IV 1250 Output: Estimated Blood Loss 10 Other: Weight 103.4 kg GENERAL EXAM: 72-year-old white male on Ventimask, seen in the recovery room. HEAD: Normocephalic. EYES: Normal reaction of pupils, equal size. NOSE: Clear with pink turbinates. THROAT: No erythema or exudates. NECK: No masses, no JVD. CHEST: No chest wall deformity. Right sided chest tube with pleural VAC noted LUNGS: Equal air entry with few scattered crackles, diminished in the right base. CVS: S1 and S2 normal with no audible murmur, regular rhythm. ABDOMEN: No hepatosplenomegaly, normal bowel sounds, no guarding or rigidity. SKIN: No rashes CENTRAL NERVOUS SYSTEM: Alert and oriented 3 focal deficit. EXTREMITIES: Left upper extremity with AV fistula There is no peripheral edema. No clubbing, no cyanosis. Peripheral pulses are intact. Results - Laboratory Findings CBC and BMP: 06/17/22 11:34 06/17/22 11:34 PT/INR, D-dimer PT 11.7 sec (9.0-12.0) 06/17/22 11:34 INR 1.1 (<1.2) 06/17/22 11:34 Abnormal lab findings: Abnormal Labs 06/17/22 06/17/22 06/17/22 11:34 11:34 14:40 RBC 3.66 L Hgb 11.0 L Hct 35.2 L RDW 16.3 H Lymphocytes # 0.7 L Sodium 136 L Chloride 97 L BUN 28 H Creatinine 4.65 H Glucose 135 H POC Glucose (mg/dL) 161 H - Diagnostic Findings Chest x-ray: image reviewed (As noted in HPI.) Assessment and Plan Assessment: Impression: Status post bronchoscopy, video assisted thoracoscopic surgery with pleural biopsy and removal of Pleurx catheter, postoperative day #0 Right pleural thickening with pleural plaques and pulmonary calcification. End-stage renal disease, on hemodialysis Recurrent right-sided pleural effusion, negative cytology for malignancy negative PET scan. Coronary arteriosclerosis and previous CABG Type 2 diabetes with diabetic nephropathy Benign essential hypertension Ex-smoker Chronic diastolic congestive heart failure Recommendation: Continue present supportive care measures Continue chest tube to wall suction Continue bronchodilators Incentive spirometry Follow-up chest x-ray in a.m. Await pleural biopsy results Resume home meds Resume hemodialysis as felt necessary by nephrology on the case. Early ambulation. GI and DVT prophylaxis. We'll continue to follow Time with Patient: Greater than 30
[2022-06-17] MEDS ORDERED: ACETAMINOPHEN TAB 325 MG TAB PO PRN (16:07)
[2022-06-17] MEDS ORDERED: traMADol 50 MG TAB PO PRN (16:07)
[2022-06-17] MEDS ORDERED: ONDANSETRON 4 MG/2 ML VIAL IVP PRN (16:07)
[2022-06-17] MEDS ORDERED: SODIUM CHLORIDE 0.9% 1,000 ML IV SCH (16:07)
[2022-06-17] MEDS ORDERED: TORSEMIDE 20 MG TAB PO PRN (16:07)
[2022-06-17] MEDS ORDERED: LIDOCAINE 5% PATCH TOPICAL PRN (16:07)
[2022-06-17] MEDS ORDERED: IPRATROPIUM-ALBUTEROL 3 ML NEB IH PRN (16:07)
[2022-06-17 16:32] LABS: Glucose,Whole Blood 171 mg/dL (70-110)
[2022-06-17] MEDS: CLINDAMYCIN 900 MG in DEXTROSE 5% IN WATER 50 ML IVPB SCH ×2 (17:01)
[2022-06-17] MEDS: IPRATROPIUM-ALBUTEROL 3 ML NEB IH SCH ×2 (17:13→21:20)
[2022-06-17] MEDS: HEPARIN SODIUM,PORCINE/PF 5,000 UNIT/0.5 ML SYRINGE SQ SCH ×2 (17:25→17:30)
[2022-06-17] MEDS: carvediloL 3.125 MG TAB PO SCH (17:25)
[2022-06-17] MEDS: hydrALAZINE HCL 50 MG TAB PO SCH ×2 (17:25→21:43)
[2022-06-17 20:09] LABS: Glucose,Whole Blood 213 mg/dL (70-110)
[2022-06-17] MEDS: ESCITALOPRAM 20 MG TAB PO SCH (21:43)
[2022-06-17] MEDS: CALCIUM ACETATE 667 MG TAB PO SCH (21:46)
[2022-06-18] MEDS: CLINDAMYCIN 900 MG in DEXTROSE 5% IN WATER 50 ML IVPB SCH ×2 (00:04)
[2022-06-18] MEDS: HEPARIN SODIUM,PORCINE/PF 5,000 UNIT/0.5 ML SYRINGE SQ SCH ×4 (00:04→23:25)
[2022-06-18 06:03] LABS: Glucose,Whole Blood 175 mg/dL (70-110)
[2022-06-18] MEDS: carvediloL 3.125 MG TAB PO SCH ×2 (07:00→16:59)
--- NOTE | 2022-06-18 07:08 | XR ---
EXAMINATION TYPE: XR chest 1V portable DATE OF EXAM: 06/18/2022 6:56 AM COMPARISON: Chest radiographs from 06/17/2022 TECHNIQUE: XR chest 1V portable Frontal view of the chest. CLINICAL INDICATION:Male, 72 years old with history of subcutaneous emphysema; FINDINGS: Lungs/Pleura: Small right pleural effusion with suspected underlying trace pneumothorax. Left basilar airspace opacities have increased. Pulmonary vascularity: Unremarkable. Heart/mediastinum: Cardiomediastinal silhouette is enlarged and stable. Musculoskeletal: No acute osseous pathology. Midline sternotomy wires are noted. Other findings: None Lines/Tubes: Right thoracotomy tube with tip in appropriate position. There is small foci of subcutaneous emphysem a the right lateral chest wall. Trace right pleural effusion is present with suspected underlying tra ce pneumothorax. IMPRESSION: 1. Right chest thoracotomy tube with few scattered foci of subcutaneous emphysema along the right la teral chest wall. There remains right pleural effusion with suspected small pneumothorax component. 2. Increasing left basilar airspace opacities correlate for developing pneumonia and/or atelectasis.
[2022-06-18] MEDS: DEXAMETHASONE SOD PHOSPHATE 4 MG/ML 1 ML VIAL IV ONE (07:33)
[2022-06-18] MEDS: PANTOPRAZOLE 40 MG TABLET PO SCH (07:41)
[2022-06-18] MEDS: CLOPIDOGREL 75 MG TAB PO SCH (07:41)
[2022-06-18] MEDS: FOLIC ACID-VIT B COMPLEX-VIT C 1 CAP PO SCH (07:42)
[2022-06-18] MEDS: amLODIPine 10 MG TAB PO SCH (07:42)
[2022-06-18] MEDS: DAPAGLIFLOZIN PROPANEDIOL 10 MG TABLET PO SCH (07:42)
[2022-06-18] MEDS: ASPIRIN 81 MG PO SCH (07:42)
[2022-06-18] MEDS: hydrALAZINE HCL 50 MG TAB PO SCH ×3 (07:42→20:37)
[2022-06-18] MEDS: CALCIUM ACETATE 667 MG TAB PO SCH ×2 (07:44→20:37)
[2022-06-18] MEDS: IPRATROPIUM-ALBUTEROL 3 ML NEB IH SCH ×4 (08:00→20:05)
--- NOTE | 2022-06-18 10:09 | P.PN ---
Subjective Progress Note Date: 06/18/22 Principal diagnosis: Right pleural thickening with pleural plaque and pulmonary calcification. Past medical history significant for end-stage renal disease with hemodialysis /Thursday/Thursday, coronary artery disease status post CABG in [address] 1 year ago, recurrent pleural effusions status post left-sided as well as right-sided thoracentesis and subsequent placement of right-sided Pleurx catheter, hypertension, diabetes, hyperlipidemia, home oxygen dependent on 2 L nasal cannula and previous tobacco dependence. POD #1 bronchoscopy, right video-assisted thoracoscopic surgery with pleural biopsy, removal of Pleurx catheter. The patient was seen and examined in follow-up today 06/18/2022 at his bedside on the cardiac stepdown unit. Currently the patient is lying in bed, is awake, alert, oriented 3 and is in no acute distress. Denies any complaints of pain or shortness of breath at this time. Oxygen saturations are 99% on 2 L nasal cannula. Right pleural chest tube remains in place to low continuous wall suction -20 cm H2O. No air leak is present. Draining thin serosanguineous drainage with 170 mL output in the last 8 hours and 650 mL output since surgery. He has been afebrile the last 24 hours. Chest x-ray was reviewed, laboratory results remain pending. Objective - Vital Signs Vital signs: Vital Signs Temp 97.5 F L 06/18/22 07:27 Pulse 76 06/18/22 08:09 Resp 16 06/18/22 07:27 BP 150/64 06/18/22 07:27 Pulse Ox 100 06/18/22 08:00 FiO2 Intake & Output 06/17/22 06/18/22 06/18/22 18:59 06:59 18:59 Intake Total 1780 240 Output Total 350 170 Balance 1430 70 Weight 103.4 kg Intake: IV 1600 Oral 180 240 Output: Chest Tube Drainage 170 Chest Tube Right 170 Posterior Chest Drainage 340 Right Chest 340 Estimated Blood Loss 10 - Exam CONSTITUTIONAL: Appears comfortable, cooperative, no acute distress RESPIRATORY: Lungs sounds diminished bilaterally, right greater than left. Respirations symmetrical, nonlabored. Currently on 2 L nasal cannula with oxygen [id number] Able to achieve 1500 mL on incentive spirometry. Strong cough. CARDIOVASCULAR: S1, S2 present. Regular rate and rhythm, sinus rhythm on telemetry. Palpable peripheral pulses bilaterally. No edema present. No calf pain or tenderness noted. SCDs present. GASTROINTESTINAL: Abdomen soft, nontender, nondistended. Active bowel sounds present 4 quadrants. Tolerating diet. GENITOURINARY: Left arm AV fistula with good thrill and bruit. Dialysis are Thursday and Fridays. INTEGUMENTARY: Skin is warm and dry with no clubbing or cyanosis present. Thoracic incision well approximated and covered with dry intact dressing. Chest tube dressing clean, dry and intact. NEUROLOGIC: Cranial nerves II through XII intact. MUSKULOSKELETAL: Able to move all extremities, strength equal bilaterally, gait normal. PSYCHIATRIC: Alert and oriented to person place and time, appropriate affect, intact judgment and insight. INVASIVE LINES AND TUBES: Right pleural chest tube present and connected to wall suction, no air leaks present. Right pleural chest tube with 170 mL serosanguineous drainage overnight, 650 mL since surgery. - Allied health notes Allied health notes reviewed: nursing - Labs CBC & Chem 7: 06/17/22 11:34 06/17/22 11:34 Labs: Abnormal Lab Results - Last 24 Hours (Table) 06/17/22 06/17/22 06/17/22 Range/Units 11:34 11:34 14:40 RBC 3.66 L (4.30-5.90) m/uL Hgb 11.0 L (13.0-17.5) gm/dL Hct 35.2 L (39.0-53.0) % RDW 16.3 H (11.5-15.5) % Lymphocytes # 0.7 L (1.0-4.8) k/uL Sodium 136 L (137-145) mmol/L Chloride 97 L (98-107) mmol/L BUN 28 H (9-20) mg/dL Creatinine 4.65 H (0.66-1.25) mg/dL Glucose 135 H (74-99) mg/dL POC Glucose (mg/dL) 161 H (70-110) mg/dL 06/17/22 06/17/22 06/18/22 Range/Units 16:30 20:07 06:01 RBC (4.30-5.90) m/uL Hgb (13.0-17.5) gm/dL Hct (39.0-53.0) % RDW (11.5-15.5) % Lymphocytes # (1.0-4.8) k/uL Sodium (137-145) mmol/L Chloride (98-107) mmol/L BUN (9-20) mg/dL Creatinine (0.66-1.25) mg/dL Glucose (74-99) mg/dL POC Glucose (mg/dL) 171 H 213 H 175 H (70-110) mg/dL - Imaging and Cardiology Chest x-ray: report reviewed, image reviewed Assessment and Plan Assessment: Right pleural thickening with pleural plaque and pulmonary calcification, status post bronchoscopy, right video-assisted thoracoscopic surgery with pleural biopsy Recurrent pleural effusions status post left-sided as well as right-sided th oracentesis and subsequent placement of right-sided Pleurx catheter 03/21/22, and subsequent removal of Pleurx catheter End-stage renal disease with hemodialysis Thursday/Thursday/Thursday Coronary artery disease status post CABG in [address] [place] [address] 1 year ago Heart failure with preserved ejection fraction Mitral regurgitation, trace to mild Hypertension Diabetes Hyperlipidemia Previous tobacco dependence On 2 L nasal cannula oxygen at home Plan: Place right pleural chest tube to waterseal. Continue to record strict inaccurate I's and O's. Monitor for air leak. Encourage use of incentive spirometry 10 times every hour while awake. Hemodialysis management per nephrology. Nephrology consulted. Out of bed for all meals. Increase activity as tolerated. Pleural biopsy results remain pending, continue to follow biopsy and cytology results. Patient management per current when necessary orders. Medical management other comorbidities per primary care service. Likely to remove right pleural chest tube tomorrow 06/19/2022. Discharge planning is in place. More recommendations to follow based on patient's clinical course. Time with Patient: Greater than 30
--- NOTE | 2022-06-18 10:53 | P.NPCON ---
History of Present Illness - Reason for Consult end stage renal disease - History of Present Illness Patient is an 83-year-old male with end-stage renal disease on hemodialysis on a Thursday schedule. Patient has a history of chronic right pleural effusion status post thoracentesis and Pleurx catheter placement. Status post bronchoscopy, right video-assisted thoracoscopic surgery and pleural biopsy with removal of Pleurx catheter on 06/17/2022. No significant complaints About 170 mL of output noted from right pleural chest tube Review of Systems As per HPI Past Medical History Past Medical History: Coronary Artery Disease (CAD), Heart Failure, Diabetes Mellitus, Dialysis, Eye Disorder, GERD/Reflux, Hearing Disorder / Deafness, Hyperlipidemia, Hypertension, Memory Impairment, Renal Disease, Seizure Disorder Additional Past Medical History / Comment(s): Currently has R sided pleux cath, 2021 CABG since then has had recurrent bilateral pleural effusions, ESRD with dialysis on M/W/, NIDDM/diet only-has Moustapha, past L eye retinal detachment/surgery, deaf L side History of Any Multi-Drug Resistant Organisms: None Reported Past Surgical History: Adenoidectomy, Heart Catheterization With Stent, Tonsillectomy Additional Past Surgical History / Comment(s): 6 vessel coronary bypass in 2021, bilateral cataract surgery, L eye surgery for detached retina, left arm hemodialysis AV fistula; right-sided Pleurx catheter placed 03/21/22, colonoscopy, cervical surgery/benign growth. Past Anesthesia/Blood Transfusion Reactions: Previous Problems w/ Anesthesia, Postoperative Nausea & Vomiting (PONV) Additional Past Anesthesia/Blood Transfusion Reaction / Comment(s): Pt has had blood transfusion long time ago/no reaction. Date of Last Stent Placement:: 1999 at [facility]. Smoking Status: Former smoker - Past Family History Daughter(s) Family Medical History: No Reported History Father Family Medical History: Cancer Additional Family Medical History / Comment(s): Lung cancer to bone cancer Mother Family Medical History: No Reported History Medications and Allergies Home Medications Medication Instructions Recorded Confirmed Type Calcium Acetate [PhosLo] 3 cap PO BID 03/11/22 06/13/22 History Clopidogrel [Plavix] 75 mg PO QAM 03/11/22 06/17/22 History Escitalopram [Lexapro] 20 mg PO HS 03/11/22 06/17/22 History Pantoprazole [Protonix] 40 mg PO QAM 03/11/22 06/13/22 History carvediloL [Coreg] 3.125 mg PO BID 03/11/22 06/13/22 History HYDROcodone/APAP 5-325MG [[place] 1 tab PO Q4HR PRN 04/03/22 06/17/22 History 5-325] Folic Acid-Vit B Complex-Vit C 1 cap PO QAM 05/04/22 06/13/22 History [Nephrocaps] Ipratropium-Albuterol Nebulize 3 ml INHALATION RT-QID PRN 05/04/22 06/13/22 History [Duoneb 0.5 mg-3 mg/3 ml Soln] Lidocaine 5% Patch [Lidoderm 5% 1 patch TOPICAL DAILY PRN 05/04/22 06/17/22 History Patch] hydrALAZINE HCL [Apresoline] 50 mg PO TID 30 Days #90 tab 05/09/22 06/13/22 Rx Aspirin 81 mg PO QAM 05/23/22 06/17/22 History Empagliflozin [Jardiance] 25 mg PO QAM 05/23/22 06/13/22 History Epoetin Unknown Dose 1 dose SQ MOWEFR 05/23/22 06/17/22 History Lansoprazole [Prevacid] 30 mg PO QAM 05/23/22 06/13/22 History Rosuvastatin Calcium [Crestor] 40 mg PO HS 05/23/22 06/17/22 History Torsemide [Demadex] 20 mg PO BID PRN 05/23/22 06/13/22 History amLODIPine [Norvasc] 10 mg PO QAM 05/23/22 06/13/22 History traMADol HCl [Ultram] 50 mg PO QID PRN 05/23/22 06/17/22 History Allergies Allergy/AdvReac Type Severity Reaction Status Date / Time cephalexin [From Keflex] Allergy Rash/Hives Verified 06/17/22 10:31 codeine Allergy Rash/Hives Verified 06/17/22 10:31 latex Allergy Rash/Hives Verified 06/17/22 10:31 atorvastatin AdvReac ACHES AND Verified 06/17/22 10:31 WEAKNESS lisinopril AdvReac DRY COUGH Verified 06/17/22 10:31 metoprolol AdvReac DRY COUGH Verified 06/17/22 10:31 Physical Exam Vitals: Vital Signs Temp Pulse Pulse Pulse Resp BP BP 06/18/22 08:09 76 06/18/22 08:00 70 06/18/22 07:27 97.5 F L 65 16 150/64 06/18/22 07:02 63 139/69 06/18/22 04:00 97.8 F 61 18 151/55 06/18/22 00:00 97.8 F 72 16 138/60 06/17/22 21:34 92 06/17/22 21:20 90 06/17/22 20:03 97.5 F L 92 16 165/80 06/17/22 17:30 98.4 F 61 18 145/67 06/17/22 17:16 06/17/22 17:14 58 L 06/17/22 17:00 97.6 F 57 L 18 151/67 06/17/22 16:20 18 06/17/22 16:15 97.8 F 65 17 162/59 06/17/22 15:37 54 L 16 06/17/22 15:22 54 L 16 06/17/22 14:56 52 L 16 06/17/22 14:41 54 L 16 06/17/22 14:26 54 L 16 06/17/22 14:11 60 18 06/17/22 13:56 97.3 F L 54 L 18 06/17/22 12:01 68 16 180/78 06/17/22 11:30 61 16 186/80 BP BP Pulse Ox 06/18/22 08:09 06/18/22 08:00 100 06/18/22 07:27 96 06/18/22 07:02 06/18/22 04:00 99 06/18/22 00:00 96 06/17/22 21:34 06/17/22 21:20 06/17/22 20:03 97 06/17/22 17:30 98 06/17/22 17:16 95 06/17/22 17:14 06/17/22 17:00 97 06/17/22 16:20 06/17/22 16:15 97 06/17/22 15:37 166/74 95 06/17/22 15:22 171/76 156/59 94 L 06/17/22 14:56 177/74 168/57 99 06/17/22 14:41 193/80 171/56 100 06/17/22 14:26 205/88 180/62 100 06/17/22 14:11 214/94 195/98 100 06/17/22 13:56 176/80 100 06/17/22 12:01 98 06/17/22 11:30 98 Intake and Output 06/17/22 06/18/22 06/18/22 22:59 06:59 14:59 Intake Total 770 Output Total 340 170 Balance 430 -170 Intake: IV 350 Oral 420 Output: Chest Tube Drainage 170 Chest Tube Right 170 Posterior Chest Drainage 340 Right Chest 340 Patient is awake, comfortable, alert oriented 3 Not in any acute distress Examination of the heart S1 and S2 Examination of the lungs bilateral breath sounds are heard, right pleural catheter in place Abdomen is soft nontender Exertion lower extremities shows no significant edema Results - Lab Results Most recent lab results Calcium 9.2 mg/dL (8.4-10.2) 06/17/22 11:34 06/17/22 11:34 06/17/22 11:34 Assessment and Plan Assessment: 1. End-stage renal disease on hemodialysis on a Thursday schedule 2. Chronic and recurrent right pleural effusion status post Pleurx catheter and subsequent removal yesterday. 3. Status post VATS procedure and bronchoscopy with pleural biopsy 4. CK D mineral bone disorder 5. Coronary artery disease status post coronary artery bypass surgery Plan: Hemodialysis today Continue phosphate binders
[2022-06-18 11:45] LABS: Glucose,Whole Blood 266 mg/dL (70-110)
[2022-06-18 13:08] LABS: Anisocytosis Slight; Basophils % (A) 0 %; Eosinophils # (A) 0.1 k/uL (0-0.7); Eosinophils % (A) 1 %; HCT 32.4 % (39.0-53.0); HGB 10.3 gm/dL (13.0-17.5); Lymphocytes % (A) 12 %; MCH 30.9 pg (25.0-35.0); MCHC 31.7 g/dL (31.0-37.0); MCV 97.5 fL (80.0-100.0); Macrocytosis Slight; Mean Platelet Volume 8.7; Monocytes # (A) 0.6 k/uL (0-1.0); Monocytes % (A) 7 %; Neutrophils # (A) 6.6 k/uL (1.3-7.7); Neutrophils % (A) 78 %; Platelet Count 191 k/uL (150-450); RBC 3.32 m/uL (4.30-5.90); RDW 16.6 % (11.5-15.5); WBC 8.4 k/uL (3.8-10.6)
[2022-06-18 13:20] LABS: Calcium 8.4 mg/dL (8.4-10.2); Potassium 4.8 mmol/L (3.5-5.1)
[2022-06-18] MEDS ORDERED: [UNRECOGNIZED DRUG - OTHER] SQ SCH (13:27)
--- NOTE | 2022-06-18 14:58 | P.PN ---
Subjective Progress Note Date: 06/18/22 This is a 72-year-old white male with history of multiple medical problems including coronary artery disease, CABG 6 last year at an outside hospital, patient also has history of end-stage renal disease, on hemodialysis, history of recurrent right-sided pleural effusion post left and right sided thoracentesis with subsequent placement of right sided Pleurx catheter. Patient also had hypertension and diabetes dyslipidemia, tobacco dependence syndrome, had multiple scans of the chest demonstrating bilateral pleural effusions right greater than left. Cytology done in the past have always been negative for malignancy, however the patient continued to have significant pleural thickening and he follows up usually with Dr. Pichardo on outpatient basis. Patient was referred to thoracic surgery for open pleural biopsy and this was done today. Today, the patient underwent bronchoscopy, right video-assisted thoracoscopic surgery with pleural biopsy, and removal of Pleurx catheter. Postoperatively I was asked to see the patient in consultation, I saw the patient in the recovery room. He was already extubated, right-sided chest tube is noted with pleural VAC. Postoperative chest x-ray showed chronic pleural parenchymal changes, no evidence of pneumothorax. The patient is seen today June 18 2022 in follow-up on the selective care unit. He is postoperative day #1 following a right video-assisted thoracoscopic surgery with pleural biopsy and removal of Pleurx catheter. Chest tube remains in place. 650 ML's of serosanguineous drainage in the past 24 hours. No significant air leak noted. Chest tube remains to wall suction. Chest x-ray demonstrates right chest thoracotomy tube in place. Few scattered foci of subcutaneous emphysema along the right lateral chest wall noted. Right pleural effusion with suspected small pneumothorax noted. Increasing left basilar airspace opacities noted. He is encouraged regarding the increased use of the incentive spirometer. He is currently sitting in a chair at the bedside. Awake and alert in no acute distress. Maintaining good O2 saturations in the upper 90s on 2 L/m per nasal cannula. He is afebrile. Hemodynamically stable. White count 8.4. Hemoglobin 10.3. Platelets 191. Sodium 131. Potassium 4.8. Bicarb 27. BUN 42. Creatinine 6.73. Glucose 244. He is maintained on DuoNeb inhalations. Heparin for DVT prophylaxis. Objective - Vital Signs Vital signs: Vital Signs Temp 97.5 F L 06/18/22 07:27 Pulse 60 06/18/22 11:43 Resp 16 06/18/22 11:35 BP 137/62 06/18/22 11:35 Pulse Ox 99 06/18/22 11:35 FiO2 Intake & Output 06/17/22 06/18/22 06/18/22 18:59 06:59 18:59 Intake Total 1780 240 240 Output Total 350 170 Balance 1430 70 240 Weight 103.4 kg Intake: IV 1600 Oral 180 240 240 Output: Chest Tube Drainage 170 Chest Tube Right 170 Posterior Chest Drainage 340 Right Chest 340 Estimated Blood Loss 10 - Exam GENERAL EXAM: Awake, alert very pleasant 72-year-old white male on 2 L nasal cannula, comfortable in no acute distress. HEAD: Normocephalic. EYES: Normal reaction of pupils, equal size. NOSE: Clear with pink turbinates. THROAT: No erythema or exudates. NECK: No masses, no JVD. CHEST: Right-sided chest wall with subcutaneous emphysema noted. Right chest tube with PleuraVAC with no significant leak. Currently to wall suction. LUNGS: Equal air entry with few scattered crackles, diminished in the right base. CVS: S1 and S2 normal with no audible murmur, regular rhythm. ABDOMEN: No hepatosplenomegaly, normal bowel sounds, no guarding or rigidity. SKIN: No rashes CENTRAL NERVOUS SYSTEM: Alert and oriented 3 focal deficit. EXTREMITIES: Left upper extremity with AV fistula There is no peripheral edema. No clubbing, no cyanosis. Peripheral pulses are intact. - Labs CBC & Chem 7: 06/18/22 12:25 06/18/22 12:25 Labs: Abnormal Lab Results - Last 24 Hours (Table) 06/17/22 06/17/22 06/17/22 Range/Units 14:40 16:30 20:07 RBC (4.30-5.90) m/uL Hgb (13.0-17.5) gm/dL Hct (39.0-53.0) % RDW (11.5-15.5) % Sodium (137-145) mmol/L Chloride (98-107) mmol/L BUN (9-20) mg/dL Creatinine (0.66-1.25) mg/dL Glucose (74-99) mg/dL POC Glucose (mg/dL) 161 H 171 H 213 H (70-110) mg/dL 06/18/22 06/18/22 06/18/22 Range/Units 06:01 11:43 12:25 RBC 3.32 L (4.30-5.90) m/uL Hgb 10.3 L (13.0-17.5) gm/dL Hct 32.4 L (39.0-53.0) % RDW 16.6 H (11.5-15.5) % Sodium (137-145) mmol/L Chloride (98-107) mmol/L BUN (9-20) mg/dL Creatinine (0.66-1.25) mg/dL Glucose (74-99) mg/dL POC Glucose (mg/dL) 175 H 266 H (70-110) mg/dL 06/18/22 Range/Units 12:25 RBC (4.30-5.90) m/uL Hgb (13.0-17.5) gm/dL Hct (39.0-53.0) % RDW (11.5-15.5) % Sodium 131 L (137-145) mmol/L Chloride 91 L (98-107) mmol/L BUN 42 H (9-20) mg/dL Creatinine 6.73 H (0.66-1.25) mg/dL Glucose 244 H (74-99) mg/dL POC Glucose (mg/dL) (70-110) mg/dL Assessment and Plan Assessment: Status post bronchoscopy, video assisted thoracoscopic surgery with pleural biopsy and removal of Pleurx catheter, postoperative day #1 Right pleural thickening with pleural plaques and pulmonary calcification. End-stage renal disease, on hemodialysis Recurrent right-sided pleural effusion, negative cytology for malignancy negative PET scan. Coronary arteriosclerosis and previous CABG Type 2 diabetes with diabetic nephropathy Benign essential hypertension Ex-smoker Chronic diastolic congestive heart failure Plan: The patient was seen and evaluated Chest x-ray, labs and medications reviewed Right-sided chest tube remains in place to wall suction No significant pneumothorax, no significant leak Working well with the incentive spirometer Titrate the FiO2 as tolerated Continue bronchodilators Increase his activity as tolerated Heparin for DVT prophylaxis Follow-up chest x-ray in a.m. We'll continue to follow I have personally seen and examined the patient, performed the documentation and the assessment and plan as written. Number of minutes spent on the visit: 10.
[2022-06-18 16:24] LABS: Glucose,Whole Blood 186 mg/dL (70-110)
[2022-06-18 20:01] LABS: Glucose,Whole Blood 236 mg/dL (70-110)
[2022-06-18] MEDS: BUDESONIDE 1 MG/2 ML NEBU INHALATION SCH (20:05)
[2022-06-18] MEDS: ESCITALOPRAM 20 MG TAB PO SCH (20:37)
[2022-06-19] MEDS: carvediloL 3.125 MG TAB PO SCH ×2 (06:04→17:18)
[2022-06-19 06:09] LABS: Glucose,Whole Blood 184 mg/dL (70-110)
--- NOTE | 2022-06-19 07:51 | P.PN ---
Subjective Progress Note Date: 06/19/22 Principal diagnosis: Right pleural thickening with pleural plaque and pulmonary calcification. Previous medical history of coronary artery disease status post CABG 2021, recurrent pleural effusions status post left-sided as well as right-sided thoracentesis and subsequent placement of right-sided Pleurx catheter, previous tobacco dependence, home oxygen dependent on 2 L nasal cannula, end-stage renal disease with hemodialysis Thursday/Thursday/Thursday, hypertension, hyperlipidemia, non-insulin dependent diabetes. POD #2 bronchoscopy, right video-assisted thoracoscopic surgery with pleural biopsy, removal of Pleurx catheter. The patient was seen and examined sitting up in a recliner in the cardiac stepdown unit in no acute distress eating breakfast. He does complain of some post surgical pain although he has not taken any ordered pain meds. Remains in sinus rhythm. Right pleural chest tube remains present to water seal, 450 mL thin serosanguinous drainage in the last 24 hours. There was concern on yesterday's CXR for pneumothorax, the patient does not have a pneumothorax, rather he has a trapped lung which is unlikely to ever expand completely. He has been ambulatory in his room, received dialysis yesterday. No other new concerns. Objective - Vital Signs Vital signs: Vital Signs Temp 98.5 F 06/19/22 04:00 Pulse 67 06/19/22 04:00 Resp 20 06/19/22 04:00 BP 118/56 06/19/22 04:00 Pulse Ox 95 06/19/22 04:00 FiO2 Intake & Output 06/18/22 06/19/22 06/19/22 18:59 06:59 18:59 Intake Total 898 Output Total 3050 120 Balance -2152 -120 Intake: Oral 598 Hemodialysis 300 Output: Chest Tube Drainage 120 Chest Tube Right 120 Posterior Chest Drainage 250 Right Chest 250 Hemodialysis 2800 - Exam CONSTITUTIONAL: Appears comfortable, cooperative, no acute distress RESPIRATORY: Lungs sounds diminished on the right. Respirations even, n onlabored. Currently on 2 LPM NC with oxygen saturation 95%. Able to achieve 1500 mL on incentive spirometry. Strong cough. CARDIOVASCULAR: S1, S2 present. Regular rate and rhythm, sinus rhythm on telemetry. Palpable peripheral pulses bilaterally. No edema present. No calf pain or tenderness noted, refusing SCDs GASTROINTESTINAL: Abdomen soft, nontender, nondistended. Active bowel sounds present 4 quadrants. Tolerating diet GENITOURINARY: Receives dialysis through left upper extremity AV fistula INTEGUMENTARY: Skin is warm and dry with evidence of good perfusion NEUROLOGIC: Cranial nerves II through XII intact MUSKULOSKELETAL: Able to move all extremities, strength equal bilaterally, gait normal PSYCHIATRIC: Alert and oriented to person place and time, appropriate affect, intact judgment and insight INVASIVE LINES AND TUBES: Right pleural chest tube present to water seal, no air leak present, 120 mL serosanguineous drainage overnight, 450 mL in the last 24 hours - Allied health notes Allied health notes reviewed: nursing - Labs CBC & Chem 7: 06/18/22 12:25 06/18/22 12:25 Labs: Abnormal Lab Results - Last 24 Hours (Table) 06/18/22 06/18/22 06/18/22 Range/Units 11:43 12:25 12:25 RBC 3.32 L (4.30-5.90) m/uL Hgb 10.3 L (13.0-17.5) gm/dL Hct 32.4 L (39.0-53.0) % RDW 16.6 H (11.5-15.5) % Sodium 131 L (137-145) mmol/L Chloride 91 L (98-107) mmol/L BUN 42 H (9-20) mg/dL Creatinine 6.73 H (0.66-1.25) mg/dL Glucose 244 H (74-99) mg/dL POC Glucose (mg/dL) 266 H (70-110) mg/dL 06/18/22 06/18/22 06/19/22 Range/Units 16:22 19:57 06:06 RBC (4.30-5.90) m/uL Hgb (13.0-17.5) gm/dL Hct (39.0-53.0) % RDW (11.5-15.5) % Sodium (137-145) mmol/L Chloride (98-107) mmol/L BUN (9-20) mg/dL Creatinine (0.66-1.25) mg/dL Glucose (74-99) mg/dL POC Glucose (mg/dL) 186 H 236 H 184 H (70-110) mg/dL - Imaging and Cardiology Chest x-ray: image reviewed Assessment and Plan Assessment: Right pleural thickening with pleural plaque and pulmonary calcificationm, status post right VATS biopsy, removal of pleurx History of coronary artery disease status post CABG 2021 Recurrent pleural effusions status post left-sided as well as right-sided thoracentesis and subsequent placement of right-sided pleurx catheter Previous tobacco dependence Home oxygen dependent on 2 L nasal cannula End-stage renal disease with hemodialysis Thursday/Thursday/Thursday Hypertension Hyperlipidemia Non-insulin dependent diabetes. Plan: Will continue right pleural chest tube for another 24 hours to water seal, tor output Pleural biopsy results remain pending, continue to follow biopsy results Encourage use of incentive spirometry 10 times every hour while awake, bronchodilators per pulmonology Hemodialysis management per nephrology Increase activity as tolerated, PT/OT consulted Pain control per current medication regimen, encourage medication usage More recommendations to follow based on patient's clinical course
[2022-06-19] MEDS: HEPARIN SODIUM,PORCINE/PF 5,000 UNIT/0.5 ML SYRINGE SQ SCH ×2 (08:09→15:16)
[2022-06-19] MEDS: hydrALAZINE HCL 50 MG TAB PO SCH ×3 (08:09→20:05)
[2022-06-19] MEDS: ASPIRIN 81 MG PO SCH (08:09)
[2022-06-19] MEDS: CALCIUM ACETATE 667 MG TAB PO SCH ×2 (08:09→20:05)
[2022-06-19] MEDS: FOLIC ACID-VIT B COMPLEX-VIT C 1 CAP PO SCH (08:09)
[2022-06-19] MEDS: amLODIPine 10 MG TAB PO SCH (08:09)
[2022-06-19] MEDS: PANTOPRAZOLE 40 MG TABLET PO SCH (08:10)
[2022-06-19] MEDS: DAPAGLIFLOZIN PROPANEDIOL 10 MG TABLET PO SCH (08:10)
[2022-06-19] MEDS: CLOPIDOGREL 75 MG TAB PO SCH (08:10)
--- NOTE | 2022-06-19 08:16 | XR ---
EXAMINATION TYPE: XR chest 2V DATE OF EXAM: 06/19/2022 COMPARISON: 06/18/2022 HISTORY: Shortness of breath TECHNIQUE: Frontal and lateral views of the chest are obtained. FINDINGS: Scattered senescent parenchymal changes noted. Hyperinflation compatible with COPD. Right basilar chest tube with stable loculated pneumothorax. Small right-sided effusion with reticulo nodular infiltrates seen throughout both lung shaw. Overall appearance is stable. Heart size is stable. Mediastinal structures are stable and grossly unremarkable. No evidence for hilar prominence. Degenerative changes dorsal spine. IMPRESSION: 1. Right basilar chest tube with stable loculated pneumothorax. Small right-sided effusion with retic ulonodular infiltrates seen throughout both lung shaw. Overall appearance is stable.
[2022-06-19] MEDS: HYDROcodone/APAP 5-325MG 1 EACH TAB PO PRN (08:19)
[2022-06-19] MEDS: IPRATROPIUM-ALBUTEROL 3 ML NEB IH SCH ×4 (08:51→19:57)
[2022-06-19] MEDS: BUDESONIDE 1 MG/2 ML NEBU INHALATION SCH ×2 (08:51→19:57)
[2022-06-19 09:15] LABS: Anisocytosis Slight; HCT 30.5 % (39.0-53.0); HGB 9.7 gm/dL (13.0-17.5); Hypochromasia Slight; MCHC 31.8 g/dL (31.0-37.0); MCV 97.6 fL (80.0-100.0); Macrocytosis Slight; Mean Platelet Volume 8.6; Platelet Count 172 k/uL (150-450); RBC 3.13 m/uL (4.30-5.90); RDW 16.6 % (11.5-15.5); WBC 7.1 k/uL (3.8-10.6)
--- NOTE | 2022-06-19 10:52 | P.PN ---
Subjective Patient is seen for follow-up for end-stage renal disease. Currently with right chest tube attached to suction. No significant complaints today Tolerated hemodialysis well yesterday. UF of 2.8 L. Objective - Vital Signs Vital signs: Vital Signs Temp 98.3 F 06/19/22 08:02 Pulse 62 06/19/22 09:02 Resp 18 06/19/22 09:02 BP 146/66 06/19/22 08:02 Pulse Ox 99 06/19/22 08:53 FiO2 Intake & Output 06/18/22 06/19/22 06/19/22 18:59 06:59 18:59 Intake Total 898 240 Output Total 3050 120 70 Balance -2152 -120 170 Intake: Oral 598 240 Hemodialysis 300 Output: Chest Tube Drainage 120 70 Chest Tube Right 120 70 Posterior Chest Drainage 250 Right Chest 250 Hemodialysis 2800 - Exam Patient is awake, comfortable, alert oriented 3 Not in any acute distress Examination of the heart S1 and S2 Examination of the lungs bilateral breath sounds are heard, right pleural catheter in place Abdomen is soft nontender Exertion lower extremities shows no significant edema - Labs CBC & Chem 7: 06/19/22 06:59 06/18/22 12:25 Labs: Abnormal Lab Results - Last 24 Hours (Table) 06/18/22 06/18/22 06/18/22 Range/Units 11:43 12:25 12:25 RBC 3.32 L (4.30-5.90) m/uL Hgb 10.3 L (13.0-17.5) gm/dL Hct 32.4 L (39.0-53.0) % RDW 16.6 H (11.5-15.5) % Sodium 131 L (137-145) mmol/L Chloride 91 L (98-107) mmol/L BUN 42 H (9-20) mg/dL Creatinine 6.73 H (0.66-1.25) mg/dL Glucose 244 H (74-99) mg/dL POC Glucose (mg/dL) 266 H (70-110) mg/dL 06/18/22 06/18/22 06/19/22 Range/Units 16:22 19:57 06:06 RBC (4.30-5.90) m/uL Hgb (13.0-17.5) gm/dL Hct (39.0-53.0) % RDW (11.5-15.5) % Sodium (137-145) mmol/L Chloride (98-107) mmol/L BUN (9-20) mg/dL Creatinine (0.66-1.25) mg/dL Glucose (74-99) mg/dL POC Glucose (mg/dL) 186 H 236 H 184 H (70-110) mg/dL 06/19/22 Range/Units 06:59 RBC 3.13 L (4.30-5.90) m/uL Hgb 9.7 L (13.0-17.5) gm/dL Hct 30.5 L (39.0-53.0) % RDW 16.6 H (11.5-15.5) % Sodium (137-145) mmol/L Chloride (98-107) mmol/L BUN (9-20) mg/dL Creatinine (0.66-1.25) mg/dL Glucose (74-99) mg/dL POC Glucose (mg/dL) (70-110) mg/dL Assessment and Plan Assessment: 1. End-stage renal disease on hemodialysis on a Thursday schedule 2. Chronic and recurrent right pleural effusion status post Pleurx catheter and subsequent removal yesterday. 3. Status post VATS procedure and bronchoscopy with pleural biopsy 4. CK D mineral bone disorder 5. Coronary artery disease status post coronary artery bypass surgery Plan: Hemodialysis in a.m. if not discharged today
[2022-06-19 11:16] LABS: Glucose,Whole Blood 205 mg/dL (70-110)
--- NOTE | 2022-06-19 13:44 | P.PN ---
Subjective Progress Note Date: 06/19/22 Principal diagnosis: Status post bronchoscopy, video assisted thoracoscopic surgery with pleural biopsy and removal of Pleurx catheter, postoperative day #2 This is a 72-year-old white male with history of multiple medical problems including coronary artery disease, CABG 6 last year at an outside hospital, patient also has history of end-stage renal disease, on hemodialysis, history of recurrent right-sided pleural effusion post left and right sided thoracentesis with subsequent placement of right sided Pleurx catheter. Patient also had hypertension and diabetes dyslipidemia, tobacco dependence syndrome, had multiple scans of the chest demonstrating bilateral pleural effusions right greater than left. Cytology done in the past have always been negative for malignancy, however the patient continued to have significant pleural thickening and he follows up usually with Dr. Pichardo on outpatient basis. Patient was referred to thoracic surgery for open pleural biopsy and this was done today. Today, the patient underwent bronchoscopy, right video-assisted thoracoscopic surgery with pleural biopsy, and removal of Pleurx catheter. Postoperatively I was asked to see the patient in consultation, I saw the patient in the recovery room. He was already extubated, right-sided chest tube is noted with pleural VAC. Postoperative chest x-ray showed chronic pleural parenchymal changes, no evidence of pneumothorax. The patient is seen today June 18 2022 in follow-up on the selective care unit. He is postoperative day #1 following a right video-assisted thoracoscopic surgery with pleural biopsy and removal of Pleurx catheter. Chest tube remains in place. 650 ML's of serosanguineous drainage in the past 24 hours. No significant air leak noted. Chest tube remains to wall suction. Chest x-ray demonstrates right chest thoracotomy tube in place. Few scattered foci of subcutaneous emphysema along the right lateral chest wall noted. Right pleural effusion with suspected small pneumothorax noted. Increasing left basilar airspace opacities noted. He is encouraged regarding the increased use of the incentive spirometer. He is currently sitting in a chair at the bedside. Awake and alert in no acute distress. Maintaining good O2 saturations in the upper 90s on 2 L/m per nasal cannula. He is afebrile. Hemodynamically stable. White count 8.4. Hemoglobin 10.3. Platelets 191. Sodium 131. Potassium 4.8. Bicarb 27. BUN 42. Creatinine 6.73. Glucose 244. He is maintained on DuoNeb inhalations. Heparin for DVT prophylaxis. Reevaluated today on 12/19/2022, patient is now postoperative day #2, he underwent right DVT assisted thoracoscopic surgery with pleural biopsy and removal of Pleurx catheter. Patient is doing well clinically however continues to have significant amount of drainage in his right pleural VAC. He had about 450 ML of serosanguineous drainage in the last 24 hours. Chest x-ray showed no evidence of pneumothorax. Continues to have a trapped lung findings. Patient did get dialysis yesterday, overall he is doing fairly well and as expected. Hemoglobin today is 9.7 WBC count is 7.1 Objective - Vital Signs Vital signs: Vital Signs Temp 97.5 F L 06/19/22 11:24 Pulse 68 06/19/22 11:50 Resp 18 06/19/22 11:50 BP 157/73 06/19/22 11:24 Pulse Ox 100 06/19/22 11:24 FiO2 Intake & Output 06/18/22 06/19/22 06/19/22 18:59 06:59 18:59 Intake Total 898 240 Output Total 3050 120 70 Balance -2152 -120 170 Intake: Oral 598 240 Hemodialysis 300 Output: Chest Tube Drainage 120 70 Chest Tube Right 120 70 Posterior Chest Drainage 250 Right Chest 250 Hemodialysis 2800 - Exam Physical Exam: Revealed a 72-year-old white male in no distress, on 2 L nasal cannula with O2 saturation of 100% HEENT:[Neck is supple.] [No neck masses.] [No thyromegaly.] [No JVD.] Chest: [Crackles at the right base, right sided chest tube and pleural VAC noted, 450 ML of serosanguineous drainage noted in the pleural VAC. Cardiac Exam: [Normal S1 and S2, no S3 gallop, no murmur.] Abdomen: [Soft, nontender, no megaly, no rebound, no guarding, normal bowel sounds.] Extremities: [No clubbing, no edema, no cyanosis.] Neurological Exam: [No focal neurologic deficit.] Alert oriented 3. Psychiatric: Normal mood affect and normal mental status exam. Skin: No rashes - Labs CBC & Chem 7: 06/19/22 06:59 06/18/22 12:25 Labs: Abnormal Lab Results - Last 24 Hours (Table) 06/18/22 06/18/22 06/19/22 Range/Units 16:22 19:57 06:06 RBC (4.30-5.90) m/uL Hgb (13.0-17.5) gm/dL Hct (39.0-53.0) % RDW (11.5-15.5) % POC Glucose (mg/dL) 186 H 236 H 184 H (70-110) mg/dL 06/19/22 06/19/22 Range/Units 06:59 11:14 RBC 3.13 L (4.30-5.90) m/uL Hgb 9.7 L (13.0-17.5) gm/dL Hct 30.5 L (39.0-53.0) % RDW 16.6 H (11.5-15.5) % POC Glucose (mg/dL) 205 H (70-110) mg/dL Assessment and Plan Assessment: Impression: Status post bronchoscopy, video assisted thoracoscopic surgery with pleural biopsy and removal of Pleurx catheter, postoperative day #2 Right pleural thickening with pleural plaques and pulmonary calcification. End-stage renal disease, on hemodialysis Recurrent right-sided pleural effusion, negative cytology for malignancy negative PET scan. Coronary arteriosclerosis and previous CABG Type 2 diabetes with diabetic nephropathy Benign essential hypertension Ex-smoker Chronic diastolic congestive heart failure Recommendation: Continue present supportive care measures Continue chest tube to wall suction, not quite ready to be removed since the patient had significant drainage over the last 24 hours. Continue bronchodilators Continue Incentive spirometry Monitor daily x-rays of the chest. Await pleural biopsy results Continue hemodialysis every other day. ambulation. GI and DVT prophylaxis. We'll continue to follow Time with Patient: Less than 30
[2022-06-19 16:17] LABS: Glucose,Whole Blood 198 mg/dL (70-110)
[2022-06-19] MEDS: ESCITALOPRAM 20 MG TAB PO SCH (20:05)
[2022-06-19 20:32] LABS: Glucose,Whole Blood 197 mg/dL (70-110)
[2022-06-20] MEDS: HEPARIN SODIUM,PORCINE/PF 5,000 UNIT/0.5 ML SYRINGE SQ SCH ×3 (00:04→16:15)
[2022-06-20 06:19] LABS: Glucose,Whole Blood 153 mg/dL (70-110)
[2022-06-20] MEDS: carvediloL 3.125 MG TAB PO SCH ×2 (06:32→16:15)
--- NOTE | 2022-06-20 07:25 | P.PN ---
Subjective Progress Note Date: 06/20/22 Principal diagnosis: Right pleural thickening with pleural plaque and pulmonary calcification. Previous medical history of coronary artery disease status post CABG 2021, recurrent pleural effusions status post left-sided as well as right-sided thoracentesis and subsequent placement of right-sided Pleurx catheter, previous tobacco dependence, home oxygen dependent on 2 L nasal cannula, end-stage renal disease with hemodialysis Thursday/Thursday/Thursday, hypertension, hyperlipidemia, non-insulin dependent diabetes. POD #3 bronchoscopy, right video-assisted thoracoscopic surgery with pleural biopsy, removal of Pleurx catheter. The patient was seen and examined laying in bed on the cardiac stepdown unit in no acute distress. No complaints of pain, has not taken any ordered pain meds since yesterday morning. Remains in sinus rhythm. Right pleural chest tube remains present to water seal, 500 mL thin serosanguinous drainage in the last 24 hours. He has been ambulatory in his room, plan is for dialysis today per nephrology note. No other new concerns. Objective - Vital Signs Vital signs: Vital Signs Temp 98 F 06/20/22 04:00 Pulse 70 06/20/22 04:00 Resp 18 06/20/22 04:00 BP 169/74 06/20/22 04:00 Pulse Ox 94 L 06/20/22 04:00 FiO2 Intake & Output 06/19/22 06/20/22 06/20/22 18:59 06:59 18:59 Intake Total 480 Output Total 230 800 250 Balance 250 -800 -250 Intake: Oral 480 Output: Chest Tube Drainage 230 250 Chest Tube Right 230 250 Posterior Chest Urine 800 Straight 800 - Exam CONSTITUTIONAL: Appears comfortable, cooperative, no acute distress RESPIRATORY: Lungs sounds diminished on the right. Respirations even, nonlabored. Currently on room air with oxygen saturation 94%. Able to achieve 1500 mL on incentive spirometry. Strong cough. CARDIOVASCULAR: S1, S2 present. Regular rate and rhythm, sinus rhythm on telemetry. Palpable peripheral pulses bilaterally. No edema present. No calf pain or tenderness noted, refusing SCDs GASTROINTESTINAL: Abdomen soft, nontender, nondistended. Active bowel sounds present 4 quadrants. Tolerating diet GENITOURINARY: Receives dialysis through left upper extremity AV fistula INTEGUMENTARY: Skin is warm and dry with evidence of good perfusion NEUROLOGIC: Cranial nerves II through XII intact MUSKULOSKELETAL: Able to move all extremities, strength equal bilaterally, gait normal PSYCHIATRIC: Alert and oriented to person place and time, appropriate affect, intact judgment and insight INVASIVE LINES AND TUBES: Right pleural chest tube present to water seal, no air leak present, 250 mL serosanguineous drainage overnight, 500 mL in the last 24 hours - Allied health notes Allied health notes reviewed: nursing - Labs CBC & Chem 7: 06/19/22 06:59 06/18/22 12:25 Labs: Abnormal Lab Results - Last 24 Hours (Table) 06/19/22 06/19/22 06/19/22 Range/Units 06:59 11:14 16:16 RBC 3.13 L (4.30-5.90) m/uL Hgb 9.7 L (13.0-17.5) gm/dL Hct 30.5 L (39.0-53.0) % RDW 16.6 H (11.5-15.5) % POC Glucose (mg/dL) 205 H 198 H (70-110) mg/dL 06/19/22 06/20/22 Range/Units 20:20 06:18 RBC (4.30-5.90) m/uL Hgb (13.0-17.5) gm/dL Hct (39.0-53.0) % RDW (11.5-15.5) % POC Glucose (mg/dL) 197 H 153 H (70-110) mg/dL - Imaging and Cardiology Chest x-ray: image reviewed Assessment and Plan Assessment: Right pleural thickening with pleural plaque and pulmonary calcificationm, status post right VATS biopsy, removal of pleurx History of coronary artery disease status post CABG 2021 Recurrent pleural effusions status post left-sided as well as right-sided thoracentesis and subsequent placement of right-sided pleurx catheter Previous tobacco dependence Home oxygen dependent on 2 L nasal cannula End-stage renal disease with hemodialysis Thursday/Thursday/Thursday Hypertension Hyperlipidemia Non-insulin dependent diabetes. Plan: Will continue right pleural chest tube for another 24 hours to water seal, monitor output Pleural biopsy results remain pending, continue to follow biopsy results Encourage use of incentive spirometry 10 times every hour while awake, bronchodilators per pulmonology Hemodialysis management per nephrology, anticipate dialysis today Increase activity as tolerated, PT/OT following Pain control per current medication regimen, encourage medication usage More recommendations to follow based on patient's clinical course
--- NOTE | 2022-06-20 08:28 | CONS ---
CONSULTATION HISTORY OF PRESENT ILLNESS: I did a consult a couple of days ago. He appears to be doing better. He is sitting up in bed with oxygen at 2 L. He has a new chest tube in for right-sided thoracentesis with right sided PleurX catheter, which apparently was not working good at home. He has end-stage renal disease, hypertension, dyslipidemia, diabetes. Postop day #2 bronchoscopy with right video-assisted thoracoscopic surgery with pleural biopsy, removal of PleurX catheter concerned for possible right pneumothorax, which was negative. Trapped lung was what they thought he had. PHYSICAL EXAMINATION: VITAL SIGNS: Temperature 98.5, pulse 67, respiratory rate 18 to 20, blood pressure 118/56, O2 of 95%. CARDIOVASCULAR: S1, S2. LUNGS: Clear. GI: Soft. HEMATOLOGY: Negative for Homans. PSYCH: Fair mood and affect. NEUROLOGIC: Alert and oriented x3. INTEGUMENT: No rash, excoriation, bruises. NEUROLOGIC: Cranial nerves intact. MUSCULOSKELETAL: Range of motion full x4. Chest tube drainage, water-seal, no leaks. LABORATORY DATA: Hemoglobin is 10.3. ASSESSMENT: Pleural plaque, pulmonary calcification, right pleural thickening, status post right VATS biopsy, removal of PleurX, coronary artery disease, pleural effusions, end-stage renal disease, type 2 diabetes mellitus, chronic obstructive pulmonary disease, dyslipidemia, hypertension, incentive spirometry, pleural biopsy. Wait for biopsies. Hemodialysis 3 times a week. PT, OT. Condition stable. Prognosis guarded. MMODL / IJN: [id number] /
[2022-06-20] MEDS: IPRATROPIUM-ALBUTEROL 3 ML NEB IH SCH ×4 (08:34→21:11)
[2022-06-20] MEDS: BUDESONIDE 1 MG/2 ML NEBU INHALATION SCH ×2 (08:34→21:11)
[2022-06-20 09:05] LABS: Anisocytosis Slight; Basophils % (A) 0 %; Eosinophils # (A) 0.3 k/uL (0-0.7); Eosinophils % (A) 5 %; HCT 31.4 % (39.0-53.0); HGB 10.2 gm/dL (13.0-17.5); Lymphocytes # (A) 0.5 k/uL (1.0-4.8); Lymphocytes % (A) 9 %; MCH 31.4 pg (25.0-35.0); MCHC 32.4 g/dL (31.0-37.0); MCV 96.8 fL (80.0-100.0); Macrocytosis Slight; Mean Platelet Volume 8.1; Monocytes # (A) 0.4 k/uL (0-1.0); Monocytes % (A) 7 %; Neutrophils # (A) 4.4 k/uL (1.3-7.7); Neutrophils % (A) 77 %; Platelet Count 194 k/uL (150-450); RBC 3.24 m/uL (4.30-5.90); WBC 5.7 k/uL (3.8-10.6)
[2022-06-20 09:30] LABS: Albumin 3.3 g/dL (3.5-5.0); Calcium 8.7 mg/dL (8.4-10.2); Potassium 4.8 mmol/L (3.5-5.1); Total Bilirubin 0.5 mg/dL (0.2-1.3); Total Protein 6.3 g/dL (6.3-8.2)
--- NOTE | 2022-06-20 10:15 | XR ---
EXAMINATION TYPE: XR chest 2V DATE OF EXAM: 06/20/2022 COMPARISON: 06/19/2022 TECHNIQUE: PA and lateral views submitted. HISTORY: Postop surgery FINDINGS: Scattered senescent parenchymal changes noted. Hyperinflation compatible with COPD. Right basilar hans st tube with stable loculated pneumothorax. Small right-sided effusion with reticulonodular infiltrat es seen throughout both lung shaw. Overall appearance is stable. Heart size is stable. Mediastinal structures are stable and grossly unremarkable. No evidence for hilar prominence. Degenerative change s dorsal spine. IMPRESSION: 1. Stable right-sided chest tube, loculated pleural effusion and pleural parenchymal changes which ar e similar to the prior exam.
--- NOTE | 2022-06-20 10:31 | P.PN ---
Subjective Patient is seen for follow-up for end-stage renal disease. Maintained on Thursday schedule. Currently with right chest tube attached to suction. No significant complaints today Seen on hemodialysis. Tolerating treatment well. Goal UF about 2 L. Objective - Vital Signs Vital signs: Vital Signs Temp 98.0 F 06/20/22 08:05 Pulse 68 06/20/22 08:48 Resp 18 06/20/22 08:05 BP 147/70 06/20/22 08:05 Pulse Ox 100 06/20/22 08:35 FiO2 Intake & Output 06/19/22 06/20/22 06/20/22 18:59 06:59 18:59 Intake Total 480 250 Output Total 230 800 250 Balance 250 -800 0 Intake: IV 10 Invasive Line 1 5 Invasive Line 2 5 Oral 480 240 Output: Chest Tube Drainage 230 250 Chest Tube Right 230 250 Posterior Chest Urine 800 Straight 800 - Exam Patient is awake, comfortable, alert oriented 3 Not in any acute distress Examination of the heart S1 and S2 Examination of the lungs bilateral breath sounds are heard, right pleural cath eter in place Abdomen is soft nontender Exertion lower extremities shows no significant edema - Labs CBC & Chem 7: 06/20/22 08:55 06/20/22 08:55 Labs: Abnormal Lab Results - Last 24 Hours (Table) 06/19/22 06/19/22 06/19/22 Range/Units 11:14 16:16 20:20 RBC (4.30-5.90) m/uL Hgb (13.0-17.5) gm/dL Hct (39.0-53.0) % RDW (11.5-15.5) % Lymphocytes # (1.0-4.8) k/uL Sodium (137-145) mmol/L Chloride (98-107) mmol/L BUN (9-20) mg/dL Creatinine (0.66-1.25) mg/dL Glucose (74-99) mg/dL POC Glucose (mg/dL) 205 H 198 H 197 H (70-110) mg/dL Albumin (3.5-5.0) g/dL 06/20/22 06/20/22 06/20/22 Range/Units 06:18 08:55 08:55 RBC 3.24 L (4.30-5.90) m/uL Hgb 10.2 L (13.0-17.5) gm/dL Hct 31.4 L (39.0-53.0) % RDW 16.0 H (11.5-15.5) % Lymphocytes # 0.5 L (1.0-4.8) k/uL Sodium 128 L (137-145) mmol/L Chloride 92 L (98-107) mmol/L BUN 42 H (9-20) mg/dL Creatinine 6.49 H (0.66-1.25) mg/dL Glucose 141 H (74-99) mg/dL POC Glucose (mg/dL) 153 H (70-110) mg/dL Albumin 3.3 L (3.5-5.0) g/dL Assessment and Plan Assessment: 1. End-stage renal disease on hemodialysis on a Thursday schedule 2. Chronic and recurrent right pleural effusion status post Pleurx catheter and subsequent removal currently with a chest tube attached to suction with large amount of drainage. 3. Status post VATS procedure and bronchoscopy with pleural biopsy 4. CK D mineral bone disorder 5. Coronary artery disease status post coronary artery bypass surgery Plan: Hemodialysis today with goal UF about 2 L.
[2022-06-20 11:46] LABS: Glucose,Whole Blood 169 mg/dL (70-110)
[2022-06-20] MEDS: CALCIUM ACETATE 667 MG TAB PO SCH ×2 (11:54→20:30)
[2022-06-20] MEDS: hydrALAZINE HCL 50 MG TAB PO SCH ×3 (12:21→20:30)
[2022-06-20] MEDS: ASPIRIN 81 MG PO SCH (12:25)
[2022-06-20] MEDS: DAPAGLIFLOZIN PROPANEDIOL 10 MG TABLET PO SCH (12:25)
[2022-06-20] MEDS: CLOPIDOGREL 75 MG TAB PO SCH (12:25)
[2022-06-20] MEDS: amLODIPine 10 MG TAB PO SCH (12:25)
[2022-06-20] MEDS: FOLIC ACID-VIT B COMPLEX-VIT C 1 CAP PO SCH (12:25)
[2022-06-20] MEDS: PANTOPRAZOLE 40 MG TABLET PO SCH (12:26)
--- NOTE | 2022-06-20 13:56 | P.PN ---
Subjective Progress Note Date: 06/20/22 Principal diagnosis: Status post bronchoscopy, video assisted thoracoscopic surgery with pleural biopsy and removal of Pleurx catheter, postoperative day #3 This is a 72-year-old white male with history of multiple medical problems including coronary artery disease, CABG 6 last year at an outside hospital, patient also has history of end-stage renal disease, on hemodialysis, history of recurrent right-sided pleural effusion post left and right sided thoracentesis with subsequent placement of right sided Pleurx catheter. Patient also had hypertension and diabetes dyslipidemia, tobacco dependence syndrome, had multiple scans of the chest demonstrating bilateral pleural effusions right greater than left. Cytology done in the past have always been negative for malignancy, however the patient continued to have significant pleural thickening and he follows up usually with Dr. Pichardo on outpatient basis. Patient was referred to thoracic surgery for open pleural biopsy and this was done today. Today, the patient underwent bronchoscopy, right video-assisted thoracoscopic surgery with pleural biopsy, and removal of Pleurx catheter. Postoperatively I was asked to see the patient in consultation, I saw the patient in the recovery room. He was already extubated, right-sided chest tube is noted with pleural VAC. Postoperative chest x-ray showed chronic pleural parenchymal changes, no evidence of pneumothorax. The patient is seen today June 18 2022 in follow-up on the selective care unit. He is postoperative day #1 following a right video-assisted thoracoscopic surgery with pleural biopsy and removal of Pleurx catheter. Chest tube remains in place. 650 ML's of serosanguineous drainage in the past 24 hours. No significant air leak noted. Chest tube remains to wall suction. Chest x-ray demonstrates right chest thoracotomy tube in place. Few scattered foci of subcutaneous emphysema along the right lateral chest wall noted. Right pleural effusion with suspected small pneumothorax noted. Increasing left basilar airspace opacities noted. He is encouraged regarding the increased use of the incentive spirometer. He is currently sitting in a chair at the bedside. Awake and alert in no acute distress. Maintaining good O2 saturations in the upper 90s on 2 L/m per nasal cannula. He is afebrile. Hemodynamically stable. White count 8.4. Hemoglobin 10.3. Platelets 191. Sodium 131. Potassium 4.8. Bicarb 27. BUN 42. Creatinine 6.73. Glucose 244. He is maintained on DuoNeb inhalations. Heparin for DVT prophylaxis. Reevaluated today on 06/19/22, patient is now postoperative day #2, he underwent right DVT assisted thoracoscopic surgery with pleural biopsy and removal of Pleurx catheter. Patient is doing well clinically however continues to have significant amount of drainage in his right pleural VAC. He had about 450 ML of serosanguineous drainage in the last 24 hours. Chest x-ray showed no evidence of pneumothorax. Continues to have a trapped lung findings. Patient did get dialysis yesterday, overall he is doing fairly well and as expected. Hemoglobin today is 9.7 WBC count is 7.1 Reevaluated today on 06/20/22, patient is now postoperative day #3, doing fairly well, patient is undergoing hemodialysis. Patient is status post bronchoscopy, right video-assisted thoracoscopic surgery with pleural biopsy, removal of Pleurx catheter. No complaints, patient denies any significant pulmonary symptoms, remains in si nus rhythm, hemodynamically stable, right-sided pleural chest tube remains in place, 500 mL of serosanguineous drainage noted in the last 24 hours. Clearly the chest tube is not ready to be removed at this point yet WBC count 5.7 hemoglobin 10.2 sodium is 128 potassium 4.8 BUN is 42 creatinine 6.49 this is being addressed by nephrology on the case Objective - Vital Signs Vital signs: Vital Signs Temp 97.2 F L 06/20/22 12:48 Pulse 61 06/20/22 12:48 Resp 20 06/20/22 12:48 BP 148/93 06/20/22 12:48 Pulse Ox 96 06/20/22 11:03 FiO2 Intake & Output 06/19/22 06/20/22 06/20/22 18:59 06:59 18:59 Intake Total 480 550 Output Total 183 580 9431 Balance 250 -800 -2530 Intake: IV 10 Invasive Line 1 5 Invasive Line 2 5 Oral 480 240 Hemodialysis 300 Output: Chest Tube Drainage 230 280 Chest Tube Right 230 280 Posterior Chest Urine 800 Straight 800 Hemodialysis 2800 - Exam Physical Exam: Revealed a 72-year-old white male in no distress, on room air. HEENT:[Neck is supple.] [No neck masses.] [No thyromegaly.] [No JVD.] Chest: [Crackles at the right base, right sided chest tube and pleural VAC noted, 500 mL of serosanguineous drainage noted in the last 24 hours Cardiac Exam: [Normal S1 and S2, no S3 gallop, no murmur.] Abdomen: [Soft, nontender, no megaly, no rebound, no guarding, normal bowel sounds.] Extremities: [No clubbing, no edema, no cyanosis.] Neurological Exam: [No focal neurologic deficit.] Alert oriented 3. Psychiatric: Normal mood affect and normal mental status exam. Skin: No rashes - Labs CBC & Chem 7: 06/20/22 08:55 06/20/22 08:55 Labs: Abnormal Lab Results - Last 24 Hours (Table) 06/19/22 06/19/22 06/20/22 Range/Units 16:16 20:20 06:18 RBC (4.30-5.90) m/uL Hgb (13.0-17.5) gm/dL Hct (39.0-53.0) % RDW (11.5-15.5) % Lymphocytes # (1.0-4.8) k/uL Sodium (137-145) mmol/L Chloride (98-107) mmol/L BUN (9-20) mg/dL Creatinine (0.66-1.25) mg/dL Glucose (74-99) mg/dL POC Glucose (mg/dL) 198 H 197 H 153 H (70-110) mg/dL Albumin (3.5-5.0) g/dL 06/20/22 06/20/22 06/20/22 Range/Units 08:55 08:55 11:44 RBC 3.24 L (4.30-5.90) m/uL Hgb 10.2 L (13.0-17.5) gm/dL Hct 31.4 L (39.0-53.0) % RDW 16.0 H (11.5-15.5) % Lymphocytes # 0.5 L (1.0-4.8) k/uL Sodium 128 L (137-145) mmol/L Chloride 92 L (98-107) mmol/L BUN 42 H (9-20) mg/dL Creatinine 6.49 H (0.66-1.25) mg/dL Glucose 141 H (74-99) mg/dL POC Glucose (mg/dL) 169 H (70-110) mg/dL Albumin 3.3 L (3.5-5.0) g/dL Assessment and Plan Assessment: Impression: Status post bronchoscopy, video assisted thoracoscopic surgery with pleural biopsy and removal of Pleurx catheter, postoperative day #3 Right pleural thickening with pleural plaques and pulmonary calcification. End-stage renal disease, on hemodialysis Recurrent right-sided pleural effusion, negative cytology for malignancy negative PET scan. Coronary arteriosclerosis and previous CABG Type 2 diabetes with diabetic nephropathy Benign essential hypertension Ex-smoker Chronic diastolic congestive heart failure Recommendation: Continue present supportive care measures Continue chest tube , presently on waterseal Continue bronchodilators Continue Incentive spirometry Monitor daily x-rays of the chest. Await pleural biopsy results Continue hemodialysis every other day. ambulation. GI and DVT prophylaxis. We'll continue to follow Time with Patient: Less than 30
[2022-06-20 16:42] LABS: Glucose,Whole Blood 233 mg/dL (70-110)
[2022-06-20 20:02] LABS: Glucose,Whole Blood 220 mg/dL (70-110)
[2022-06-20] MEDS: HYDROcodone/APAP 5-325MG 1 EACH TAB PO PRN (20:29)
[2022-06-20] MEDS: ESCITALOPRAM 20 MG TAB PO SCH (20:30)
[2022-06-21] MEDS: HEPARIN SODIUM,PORCINE/PF 5,000 UNIT/0.5 ML SYRINGE SQ SCH ×4 (00:02→22:31)
--- NOTE | 2022-06-21 05:21 | PN ---
PROGRESS NOTE DATE OF SERVICE: 06/20/2022 SUBJECTIVE: This is a 72-year-old gentleman who was admitted after bronchoscopy and VATS and pleural biopsy, is being closely monitored at this time. No chest pain. No palpitations. The patient also received hemodialysis. No fever. No cough. OBJECTIVE: VITAL SIGNS: On exam, pulse is 60, blood pressure is 148/93, respirations 20. CHEST: A few scattered rhonchi and crackles. ABDOMEN: Soft. NERVOUS SYSTEM: No focal deficits. LABORATORY DATA: Labs are reviewed. ASSESSMENT: 1. Right pleural thickening and pleural plaque, status post video-assisted thoracoscopic surgery and removal of the PleurX. 2. Chronic kidney disease, on hemodialysis. 3. Recurrent pleural effusion. 4. End-stage renal disease. 5. History of coronary artery disease. 6. Diabetes mellitus, type 2. 7. Multiple medical issues. RECOMMENDATIONS: Recommend to continue current medications, continue symptomatic treatment. We will await biopsy reports. Otherwise, closely follow with Cardiothoracic Surgery as well as Nephrology. We will continue to monitor the labs. The patient has some mild hyponatremia. MMODL / IJN: [id number] /
[2022-06-21 05:44] LABS: Glucose,Whole Blood 198 mg/dL (70-110)
[2022-06-21] MEDS: carvediloL 3.125 MG TAB PO SCH ×2 (06:22→17:01)
--- NOTE | 2022-06-21 07:15 | XR ---
EXAMINATION TYPE: XR chest 2V DATE OF EXAM: 06/21/2022 COMPARISON: 06/20/2022 HISTORY: Post lung biopsy TECHNIQUE: Frontal and lateral views of the chest are obtained. FINDINGS: There is a right-sided chest tube tip of which is in the right base. There is reduction in the small loculated right basilar pneumothorax. There are multiple pleural-based masses or loculated fluid collections on the right lateral hemithora x unchanged compared to previous. The heart is moderately enlarged and the pulmonary vasculature appears moderately congested unchanged compared to previous. There are median sternotomy wires otherwise the osseous structures are intact IMPRESSION: 1. Slight reduction in the loculated right basilar pneumothorax. No change in the position of the rig ht chest tube. 2. Right lateral pleural base masses or loculated pleural effusion. 3. Findings suggestive of stable moderate CHF.
[2022-06-21] MEDS: CLOPIDOGREL 75 MG TAB PO SCH (08:02)
[2022-06-21] MEDS: ASPIRIN 81 MG PO SCH (08:02)
[2022-06-21] MEDS: PANTOPRAZOLE 40 MG TABLET PO SCH (08:02)
[2022-06-21] MEDS: DAPAGLIFLOZIN PROPANEDIOL 10 MG TABLET PO SCH (08:02)
[2022-06-21] MEDS: CALCIUM ACETATE 667 MG TAB PO SCH ×2 (08:02→20:25)
[2022-06-21] MEDS: hydrALAZINE HCL 50 MG TAB PO SCH ×3 (08:02→20:26)
[2022-06-21] MEDS: amLODIPine 10 MG TAB PO SCH (08:02)
[2022-06-21] MEDS: FOLIC ACID-VIT B COMPLEX-VIT C 1 CAP PO SCH (08:03)
[2022-06-21 08:17] LABS: Basophils % (A) 0 %; Eosinophils # (A) 0.3 k/uL (0-0.7); Eosinophils % (A) 6 %; HCT 31.8 % (39.0-53.0); Hypochromasia Slight; Lymphocytes # (A) 0.7 k/uL (1.0-4.8); Lymphocytes % (A) 14 %; MCH 30.9 pg (25.0-35.0); MCHC 31.6 g/dL (31.0-37.0); MCV 97.9 fL (80.0-100.0); Macrocytosis Slight; Mean Platelet Volume 8.2; Monocytes # (A) 0.5 k/uL (0-1.0); Monocytes % (A) 10 %; Neutrophils # (A) 3.5 k/uL (1.3-7.7); Neutrophils % (A) 67 %; Platelet Count 167 k/uL (150-450); RBC 3.25 m/uL (4.30-5.90); RDW 15.9 % (11.5-15.5); WBC 5.2 k/uL (3.8-10.6)
[2022-06-21] MEDS: BUDESONIDE 1 MG/2 ML NEBU INHALATION SCH ×2 (08:30→20:52)
[2022-06-21] MEDS: IPRATROPIUM-ALBUTEROL 3 ML NEB IH SCH ×4 (08:30→20:52)
[2022-06-21 08:43] LABS: Calcium 8.4 mg/dL (8.4-10.2); Potassium 4.6 mmol/L (3.5-5.1)
--- NOTE | 2022-06-21 08:53 | P.PN ---
Subjective Progress Note Date: 06/21/22 Principal diagnosis: Right pleural thickening with pleural plaque and pulmonary calcification. Previous medical history of coronary artery disease status post CABG 2021, recurrent pleural effusions status post left-sided as well as right-sided thoracentesis and subsequent placement of right-sided Pleurx catheter, previous tobacco dependence, home oxygen dependent on 2 L nasal cannula, end-stage renal disease with hemodialysis Thursday/Thursday/Thursday, hypertension, hyperlipidemia, non-insulin dependent diabetes. POD #4 bronchoscopy, right video-assisted thoracoscopic surgery with pleural biopsy, removal of Pleurx catheter. The patient was seen and examined laying in bed on the cardiac stepdown unit in no acute distress. No complaints of pain, has only requested pain meds once in the last 24 hours. Remains in sinus rhythm. Right pleural chest tube remains present to water seal, 250 mL thin serosanguinous drainage in the last 24 hours. He has been ambulatory in his room. Received dialysis yesterday. No other new concerns. Objective - Vital Signs Vital signs: Vital Signs Temp 97.5 F L 06/21/22 07:59 Pulse 74 06/21/22 08:30 Resp 18 06/21/22 07:59 BP 146/57 06/21/22 07:59 Pulse Ox 99 06/21/22 08:30 FiO2 Intake & Output 06/20/22 06/21/22 06/21/22 18:59 06:59 18:59 Intake Total 795 5 Output Total 3210 100 Balance -2415 -95 Intake: IV 15 5 Invasive Line 1 5 Invasive Line 2 10 5 Oral 480 Hemodialysis 300 Output: Chest Tube Drainage 410 100 Chest Tube Right 410 100 Posterior Chest Hemodialysis 2800 Other: # Voids 1 - Exam CONSTITUTIONAL: Appears comfortable, cooperative, no acute distress RESPIRATORY: Lungs sounds diminished on the right. Respirations even, nonlabored. Currently on 2LPM NC with oxygen saturation 99% CARDIOVASCULAR: S1, S2 present. Regular rate and rhythm, sinus rhythm on telemetry. Palpable peripheral pulses bilaterally. No edema present. No calf pain or tenderness noted, refusing SCDs GASTROINTESTINAL: Abdomen soft, nontender, nondistended. Active bowel sounds present 4 quadrants. Tolerating diet GENITOURINARY: Receives dialysis through left upper extremity AV fistula INTEGUMENTARY: Skin is warm and dry with evidence of good perfusion NEUROLOGIC: Cranial nerves II through XII intact MUSKULOSKELETAL: Able to move all extremities, strength equal bilaterally, gait normal PSYCHIATRIC: Alert and oriented to person place and time, appropriate affect, intact judgment and insight INVASIVE LINES AND TUBES: Right pleural chest tube present to water seal, no air leak present, 100 mL serosanguineous drainage overnight, 250 mL in the last 24 hours - Allied health notes Allied health notes reviewed: nursing - Labs CBC & Chem 7: 06/21/22 06:51 06/21/22 06:51 Labs: Abnormal Lab Results - Last 24 Hours (Table) 06/20/22 06/20/22 06/20/22 Range/Units 08:55 08:55 11:44 RBC 3.24 L (4.30-5.90) m/uL Hgb 10.2 L (13.0-17.5) gm/dL Hct 31.4 L (39.0-53.0) % RDW 16.0 H (11.5-15.5) % Lymphocytes # 0.5 L (1.0-4.8) k/uL Sodium 128 L (137-145) mmol/L Chloride 92 L (98-107) mmol/L BUN 42 H (9-20) mg/dL Creatinine 6.49 H (0.66-1.25) mg/dL Glucose 141 H (74-99) mg/dL POC Glucose (mg/dL) 169 H (70-110) mg/dL Albumin 3.3 L (3.5-5.0) g/dL 06/20/22 06/20/22 06/21/22 Range/Units 16:40 20:00 05:42 RBC (4.30-5.90) m/uL Hgb (13.0-17.5) gm/dL Hct (39.0-53.0) % RDW (11.5-15.5) % Lymphocytes # (1.0-4.8) k/uL Sodium (137-145) mmol/L Chloride (98-107) mmol/L BUN (9-20) mg/dL Creatinine (0.66-1.25) mg/dL Glucose (74-99) mg/dL POC Glucose (mg/dL) 233 H 220 H 198 H (70-110) mg/dL Albumin (3.5-5.0) g/dL 06/21/22 06/21/22 Range/Units 06:51 06:51 RBC 3.25 L (4.30-5.90) m/uL Hgb 10.0 L (13.0-17.5) gm/dL Hct 31.8 L (39.0-53.0) % RDW 15.9 H (11.5-15.5) % Lymphocytes # 0.7 L (1.0-4.8) k/uL Sodium 132 L (137-145) mmol/L Chloride 94 L (98-107) mmol/L BUN 32 H (9-20) mg/dL Creatinine 4.80 H (0.66-1.25) mg/dL Glucose 168 H (74-99) mg/dL POC Glucose (mg/dL) (70-110) mg/dL Albumin (3.5-5.0) g/dL - Imaging and Cardiology Chest x-ray: report reviewed, image reviewed Assessment and Plan Assessment: Right pleural thickening with pleural plaque and pulmonary calcificationm, status post right VATS biopsy, removal of pleurx, pathology consistent with benign fibrous tissue with fibrosis/scar, mild chronic inflammation and hemos iderin laden histiocytes History of coronary artery disease status post CABG 2021 Recurrent pleural effusions status post left-sided as well as right-sided thoracentesis and subsequent placement of right-sided pleurx catheter Previous tobacco dependence Home oxygen dependent on 2 L nasal cannula End-stage renal disease with hemodialysis Thursday/Thursday/Thursday Hypertension Hyperlipidemia Non-insulin dependent diabetes. Plan: Will continue right pleural chest tube for another 24 hours, monitor output Encourage use of incentive spirometry 10 times every hour while awake, bronchodilators per pulmonology Hemodialysis management per nephrology Increase activity as tolerated, PT/OT following Pain control per current medication regimen, encourage medication usage Repeat CXR in am More recommendations to follow
--- NOTE | 2022-06-21 09:16 | P.PN ---
Subjective Progress Note Date: 06/21/22 Principal diagnosis: This is a 72-year-old male with ESRD on dialysis Thursday was a Thursday. He came in with a right pleural effusion and underwent VATS procedure biopsy and has a r ight chest tube draining bloody fluid. Currently he is on oxygen but comfortable denies any shortness of breath has a cough with brownish sputum good appetite no dizziness. Objective - Vital Signs Vital signs: Vital Signs Temp 97.5 F L 06/21/22 07:59 Pulse 70 06/21/22 08:47 Resp 18 06/21/22 07:59 BP 146/57 06/21/22 07:59 Pulse Ox 99 06/21/22 08:30 FiO2 Intake & Output 06/20/22 06/21/22 06/21/22 18:59 06:59 18:59 Intake Total 795 5 120 Output Total 3210 100 Balance -2415 -95 120 Intake: IV 15 5 Invasive Line 1 5 Invasive Line 2 10 5 Oral 480 120 Hemodialysis 300 Output: Chest Tube Drainage 410 100 Chest Tube Right 410 100 Posterior Chest Hemodialysis 2800 Other: # Voids 1 On exam he is awake alert oriented comfortable on nasal cannula oxygen. HEENT exam no JVP neck is supple no facial asymmetry Lungs are clear to auscultation with a right chest tube good air entry bilaterally Heart sounds unremarkable Abdomen soft nontender Extremity exam trace edema. Neurologically awake alert oriented - Labs CBC & Chem 7: 06/21/22 06:51 06/21/22 06:51 Labs: Abnormal Lab Results - Last 24 Hours (Table) 06/20/22 06/20/22 06/20/22 Range/Units 08:55 11:44 16:40 RBC (4.30-5.90) m/uL Hgb (13.0-17.5) gm/dL Hct (39.0-53.0) % RDW (11.5-15.5) % Lymphocytes # (1.0-4.8) k/uL Sodium 128 L (137-145) mmol/L Chloride 92 L (98-107) mmol/L BUN 42 H (9-20) mg/dL Creatinine 6.49 H (0.66-1.25) mg/dL Glucose 141 H (74-99) mg/dL POC Glucose (mg/dL) 169 H 233 H (70-110) mg/dL Albumin 3.3 L (3.5-5.0) g/dL 06/20/22 06/21/22 06/21/22 Range/Units 20:00 05:42 06:51 RBC 3.25 L (4.30-5.90) m/uL Hgb 10.0 L (13.0-17.5) gm/dL Hct 31.8 L (39.0-53.0) % RDW 15.9 H (11.5-15.5) % Lymphocytes # 0.7 L (1.0-4.8) k/uL Sodium (137-145) mmol/L Chloride (98-107) mmol/L BUN (9-20) mg/dL Creatinine (0.66-1.25) mg/dL Glucose (74-99) mg/dL POC Glucose (mg/dL) 220 H 198 H (70-110) mg/dL Albumin (3.5-5.0) g/dL 06/21/22 Range/Units 06:51 RBC (4.30-5.90) m/uL Hgb (13.0-17.5) gm/dL Hct (39.0-53.0) % RDW (11.5-15.5) % Lymphocytes # (1.0-4.8) k/uL Sodium 132 L (137-145) mmol/L Chloride 94 L (98-107) mmol/L BUN 32 H (9-20) mg/dL Creatinine 4.80 H (0.66-1.25) mg/dL Glucose 168 H (74-99) mg/dL POC Glucose (mg/dL) (70-110) mg/dL Albumin (3.5-5.0) g/dL Assessment and Plan Assessment: Impression 1. ESRD on dialysis Thursday. 2. Right pleural thickening with pleural plaque and pulmonary calcificationm, status post right VATS biopsy, removal of pleurx, pathology consistent with benign fibrous tissue with fibrosis/scar, mild chronic inflammation and hemosiderin laden histiocytes 3. Coronary artery disease status post bypass graft in the past 4. Anemia hemoglobin is 10, at target Recommendation 1. Check iron saturation and replenish iron stores if necessary. 2. Maintain Thursday schedule that scheduled
[2022-06-21 11:39] LABS: Glucose,Whole Blood 204 mg/dL (70-110)
--- NOTE | 2022-06-21 13:50 | P.PN ---
Subjective Progress Note Date: 06/21/22 Principal diagnosis: Status post bronchoscopy, video assisted thoracoscopic surgery with pleural biopsy and removal of Pleurx catheter, postoperative day #4 This is a 72-year-old white male with history of multiple medical problems including coronary artery disease, CABG 6 last year at an outside hospital, patient also has history of end-stage renal disease, on hemodialysis, history of recurrent right-sided pleural effusion post left and right sided thoracentesis with subsequent placement of right sided Pleurx catheter. Patient also had hypertension and diabetes dyslipidemia, tobacco dependence syndrome, had multiple scans of the chest demonstrating bilateral pleural effusions right greater than left. Cytology done in the past have always been negative for malignancy, however the patient continued to have significant pleural thickening and he follows up usually with Dr. Pichardo on outpatient basis. Patient was referred to thoracic surgery for open pleural biopsy and this was done today. Today, the patient underwent bronchoscopy, right video-assisted thoracoscopic surgery with pleural biopsy, and removal of Pleurx catheter. Postoperatively I was asked to see the patient in consultation, I saw the patient in the recovery room. He was already extubated, right-sided chest tube is noted with pleural VAC. Postoperative chest x-ray showed chronic pleural parenchymal changes, no evidence of pneumothorax. The patient is seen today June 18 2022 in follow-up on the selective care unit. He is postoperative day #1 following a right video-assisted thoracoscopic surgery with pleural biopsy and removal of Pleurx catheter. Chest tube remains in place. 650 ML's of serosanguineous drainage in the past 24 hours. No significant air leak noted. Chest tube remains to wall suction. Chest x-ray demonstrates right chest thoracotomy tube in place. Few scattered foci of subcutaneous emphysema along the right lateral chest wall noted. Right pleural effusion with suspected small pneumothorax noted. Increasing left basilar airspace opacities noted. He is encouraged regarding the increased use of the incentive spirometer. He is currently sitting in a chair at the bedside. Awake and alert in no acute distress. Maintaining good O2 saturations in the upper 90s on 2 L/m per nasal cannula. He is afebrile. Hemodynamically stable. White count 8.4. Hemoglobin 10.3. Platelets 191. Sodium 131. Potassium 4.8. Bicarb 27. BUN 42. Creatinine 6.73. Glucose 244. He is maintained on DuoNeb inhalations. Heparin for DVT prophylaxis. Reevaluated today on 06/19/22, patient is now postoperative day #2, he underwent right DVT assisted thoracoscopic surgery with pleural biopsy and removal of Pleurx catheter. Patient is doing well clinically however continues to have significant amount of drainage in his right pleural VAC. He had about 450 ML of serosanguineous drainage in the last 24 hours. Chest x-ray showed no evidence of pneumothorax. Continues to have a trapped lung findings. Patient did get dialysis yesterday, overall he is doing fairly well and as expected. Hemoglobin today is 9.7 WBC count is 7.1 Reevaluated today on 06/20/22, patient is now postoperative day #3, doing fairly well, patient is undergoing hemodialysis. Patient is status post bronchoscopy, right video-assisted thoracoscopic surgery with pleural biopsy, removal of Pleurx catheter. No complaints, patient denies any significant pulmonary symptoms, remains in si nus rhythm, hemodynamically stable, right-sided pleural chest tube remains in place, 500 mL of serosanguineous drainage noted in the last 24 hours. Clearly the chest tube is not ready to be removed at this point yet WBC count 5.7 hemoglobin 10.2 sodium is 128 potassium 4.8 BUN is 42 creatinine 6.49 this is being addressed by nephrology on the case Reevaluated today on 06/21/2022, patient is now postoperative day #4, doing well, relatively asymptomatic, continues to have significant serosanguineous drainage from the right sided chest tube, over 250 mL in the last 24 hours, and the tube is remaining. Patient denies any shortness of breath, no cough, pathology from the right pleural biopsy came back benign mostly fibrotic tissue, no evidence of malignancy. CBC is basically unremarkable hemoglobin is 10 and a left was are normal BUN is 32 creatinine 4.80 Objective - Vital Signs Vital signs: Vital Signs Temp 97.3 F L 06/21/22 11:53 Pulse 68 06/21/22 12:48 Resp 16 06/21/22 11:53 BP 151/61 06/21/22 11:53 Pulse Ox 95 06/21/22 11:53 FiO2 Intake & Output 06/20/22 06/21/22 06/21/22 18:59 06:59 18:59 Intake Total 795 5 120 Output Total 3210 100 Balance -2415 -95 120 Intake: IV 15 5 Invasive Line 1 5 Invasive Line 2 10 5 Oral 480 120 Hemodialysis 300 Output: Chest Tube Drainage 410 100 Chest Tube Right 410 100 Posterior Chest Hemodialysis 2800 Other: # Voids 1 - Exam Physical Exam: Revealed a 72-year-old white male in no distress, on 2 L nasal cannula, O2 sats is 95% HEENT:[Neck is supple.] [No neck masses.] [No thyromegaly.] [No JVD.] Chest: [Crackles at the right base, right sided chest tube and pleural VAC noted, 250 ML of serosanguineous drainage noted in the last 24 hours Cardiac Exam: [Normal S1 and S2, no S3 gallop, no murmur.] Abdomen: [Soft, nontender, no megaly, no rebound, no guarding, normal bowel sounds.] Extremities: [No clubbing, no edema, no cyanosis.] Neurological Exam: [No focal neurologic deficit.] Alert oriented 3. Psychiatric: Normal mood affect and normal mental status exam. Skin: No rashes - Labs CBC & Chem 7: 06/21/22 06:51 06/21/22 06:51 Labs: Abnormal Lab Results - Last 24 Hours (Table) 06/20/22 06/20/22 06/21/22 Range/Units 16:40 20:00 05:42 RBC (4.30-5.90) m/uL Hgb (13.0-17.5) gm/dL Hct (39.0-53.0) % RDW (11.5-15.5) % Lymphocytes # (1.0-4.8) k/uL Sodium (137-145) mmol/L Chloride (98-107) mmol/L BUN (9-20) mg/dL Creatinine (0.66-1.25) mg/dL Glucose (74-99) mg/dL POC Glucose (mg/dL) 233 H 220 H 198 H (70-110) mg/dL 06/21/22 06/21/22 06/21/22 Range/Units 06:51 06:51 11:37 RBC 3.25 L (4.30-5.90) m/uL Hgb 10.0 L (13.0-17.5) gm/dL Hct 31.8 L (39.0-53.0) % RDW 15.9 H (11.5-15.5) % Lymphocytes # 0.7 L (1.0-4.8) k/uL Sodium 132 L (137-145) mmol/L Chloride 94 L (98-107) mmol/L BUN 32 H (9-20) mg/dL Creatinine 4.80 H (0.66-1.25) mg/dL Glucose 168 H (74-99) mg/dL POC Glucose (mg/dL) 204 H (70-110) mg/dL Assessment and Plan Assessment: Impression: Status post bronchoscopy, video assisted thoracoscopic surgery with pleural biopsy and removal of Pleurx catheter, postoperative day #4 Right pleural thickening with pleural plaques and pulmonary calcification. End-stage renal disease, on hemodialysis Recurrent right-sided pleural effusion, negative cytology for malignancy negative PET scan. Coronary arteriosclerosis and previous CABG Type 2 diabetes with diabetic nephropathy Benign essential hypertension Ex-smoker Chronic diastolic congestive heart failure Recommendation: Continue present supportive care measures Continue chest tube, considering the amount of drainage not ready to be removed. Continue bronchodilators Continue Incentive spirometry Monitor daily x-rays of the chest. Pleural biopsy findings were discussed with the patient and reassured that the findings are benign findings Continue hemodialysis every other day. ambulation. GI and DVT prophylaxis. We'll continue to follow Time with Patient: Less than 30
--- NOTE | 2022-06-21 15:18 | P.PN ---
Subjective Progress Note Date: 06/21/22 This is a 72-year-old male with ESRD on dialysis Thursday was a Thursday. He came in with a right pleural effusion and underwent VATS procedure biopsy and has a right chest tube draining bloody fluid. 06/21. Patient seen and examined. Patient has a right-sided chest tube in. Sitting upright in the chair. REVIEW OF SYSTEMS: CONSTITUTIONAL: No fever, no malaise,. CARDIOVASCULAR: no palpitations, no syncope. PULMONARY: No shortness of breath, no cough, GASTROINTESTINAL: No diarrhea, no nausea, no vomiting, no abdominal pain. NEUROLOGICAL: No headaches, no weakness, PHYSICAL EXAMINATION: GENERAL: The patient is alert and oriented x3, not in any acute distress. Well developed, well nourished. HEENT: Pupils are round and equally reacting to light. EOMI. No scleral icterus. No conjunctival pallor. Normocephalic, atraumatic. No pharyngeal erythema. No thyromegaly. CARDIOVASCULAR: S1 and S2 present. No murmurs, rubs, or gallops. PULMONARY: Chest is clear to auscultation, no wheezing or crackles. Right-sided chest tubes seen ABDOMEN: Soft, nontender, nondistended, normoactive bowel sounds. No palpable organomegaly. MUSCULOSKELETAL: No joint swelling or deformity. EXTREMITIES: No cyanosis, clubbing, or pedal edema. NEUROLOGICAL: Gross neurological examination did not reveal any focal deficits. SKIN: No rashes. Assessment and plan Right pleural thickening with pleural plaque and pulmonary calcificationm, status post right VATS biopsy, removal of pleurx, pathology consistent with benign fibrous tissue with fibrosis/scar, mild chronic inflammation and hemosiderin laden histiocytes History of coronary artery disease status post CABG 2021 Recurrent pleural effusions status post left-sided as well as right-sided thoracentesis and subsequent placement of right-sided pleurx catheter Previous tobacco dependence Home oxygen dependent on 2 L nasal cannula End-stage renal disease with hemodialysis Thursday/Thursday/Thursday Hypertension Hyperlipidemia Non-insulin dependent diabetes. Coronary artery disease status post bypass graft in the past Anemia hemoglobin is 10, at target Plan; Monitor vital signs Monitor CBC Monitor CMP Continue telemetry monitoring Increase activity as tolerated, PT/OT following Pain control per current medication regimen, encourage medication usage Repeat CXR in am Continue dialysis per nephrology Continue chest tube management per CT surgery Objective - Vital Signs Vital signs: Vital Signs Temp 97.3 F L 06/21/22 11:53 Pulse 53 L 06/21/22 11:53 Resp 16 06/21/22 11:53 BP 151/61 06/21/22 11:53 Pulse Ox 95 06/21/22 11:53 FiO2 Intake & Output 06/20/22 06/21/22 06/21/22 18:59 06:59 18:59 Intake Total 795 5 120 Output Total 3210 100 Balance -2415 -95 120 Intake: IV 15 5 Invasive Line 1 5 Invasive Line 2 10 5 Oral 480 120 Hemodialysis 300 Output: Chest Tube Drainage 410 100 Chest Tube Right 410 100 Posterior Chest Hemodialysis 2800 Other: # Voids 1 - Labs CBC & Chem 7: 06/21/22 06:51 06/21/22 06:51 Labs: Abnormal Lab Results - Last 24 Hours (Table) 06/20/22 06/20/22 06/21/22 Range/Units 16:40 20:00 05:42 RBC (4.30-5.90) m/uL Hgb (13.0-17.5) gm/dL Hct (39.0-53.0) % RDW (11.5-15.5) % Lymphocytes # (1.0-4.8) k/uL Sodium (137-145) mmol/L Chloride (98-107) mmol/L BUN (9-20) mg/dL Creatinine (0.66-1.25) mg/dL Glucose (74-99) mg/dL POC Glucose (mg/dL) 233 H 220 H 198 H (70-110) mg/dL 06/21/22 06/21/22 06/21/22 Range/Units 06:51 06:51 11:37 RBC 3.25 L (4.30-5.90) m/uL Hgb 10.0 L (13.0-17.5) gm/dL Hct 31.8 L (39.0-53.0) % RDW 15.9 H (11.5-15.5) % Lymphocytes # 0.7 L (1.0-4.8) k/uL Sodium 132 L (137-145) mmol/L Chloride 94 L (98-107) mmol/L BUN 32 H (9-20) mg/dL Creatinine 4.80 H (0.66-1.25) mg/dL Glucose 168 H (74-99) mg/dL POC Glucose (mg/dL) 204 H (70-110) mg/dL
[2022-06-21 16:30] LABS: Glucose,Whole Blood 169 mg/dL (70-110)
[2022-06-21] MEDS ORDERED: DEXTROSE 50% SYRINGE 50 ML IVP PRN ×2 (18:29)
[2022-06-21] MEDS: ESCITALOPRAM 20 MG TAB PO SCH (20:26)
[2022-06-21 20:32] LABS: Glucose,Whole Blood 204 mg/dL (70-110)
[2022-06-21] MEDS: INSULIN ASPART (NovoLOG) 100 UNIT/ML VIAL SQ SCH (20:37)
[2022-06-22 06:34] LABS: Glucose,Whole Blood 199 mg/dL (70-110)
--- NOTE | 2022-06-22 06:43 | XR ---
EXAMINATION TYPE: XR chest 2V DATE OF EXAM: 06/22/2022 COMPARISON: 06/21/2022 HISTORY: Follow-up post lung biopsy and chest tube placement TECHNIQUE: Frontal and lateral views of the chest are obtained. FINDINGS: There is a chest tube in the right lung base unchanged in position. There is cardiomegaly with pulmonary congestion unchanged compared to previous. Pleural thickening or loculated pleural fluid along the right lateral chest wall unchanged compared t o previous.. There is no definite pneumothorax. Tiny loculated pneumothorax in the right costophrenic angle not ex cluded IMPRESSION: Acute cardiopulmonary disease with no significant interval change.
[2022-06-22] MEDS: carvediloL 3.125 MG TAB PO SCH ×2 (06:47→16:40)
[2022-06-22] MEDS: INSULIN ASPART (NovoLOG) 100 UNIT/ML VIAL SQ SCH ×4 (06:47→20:17)
--- NOTE | 2022-06-22 07:14 | P.PN ---
Subjective Progress Note Date: 06/22/22 Principal diagnosis: This is a 72-year-old male with ESRD on dialysis Thursday was a Thursday. He came in with a right pleural effusion and underwent VATS procedure biopsy and has a r ight chest tube draining bloody fluid. Cytology is negative Currently he is on oxygen but comfortable denies any shortness of breath and has good appetite no dizziness. No fevers chills Objective - Vital Signs Vital signs: Vital Signs Temp 98.2 F 06/22/22 03:48 Pulse 65 06/22/22 03:48 Resp 18 06/22/22 03:48 BP 153/65 06/22/22 03:48 Pulse Ox 100 06/22/22 03:48 FiO2 Intake & Output 06/21/22 06/22/22 06/22/22 18:59 06:59 18:59 Intake Total 360 Output Total 80 130 Balance 280 -130 Intake: Oral 360 Output: Chest Tube Drainage 80 130 Chest Tube Right 80 130 Posterior Chest On exam he is awake alert oriented comfortable on nasal cannula oxygen. HEENT exam no JVP neck is supple no facial asymmetry Lungs are clear to auscultation with a right chest tube good air entry bilaterally Heart sounds unremarkable Abdomen soft nontender Extremity exam trace edema. Neurologically awake alert oriented - Labs CBC & Chem 7: 06/21/22 06:51 06/21/22 06:51 Labs: Abnormal Lab Results - Last 24 Hours (Table) 06/21/22 06/21/22 06/21/22 Range/Units 06:51 06:51 11:37 RBC 3.25 L (4.30-5.90) m/uL Hgb 10.0 L (13.0-17.5) gm/dL Hct 31.8 L (39.0-53.0) % RDW 15.9 H (11.5-15.5) % Lymphocytes # 0.7 L (1.0-4.8) k/uL Sodium 132 L (137-145) mmol/L Chloride 94 L (98-107) mmol/L BUN 32 H (9-20) mg/dL Creatinine 4.80 H (0.66-1.25) mg/dL Glucose 168 H (74-99) mg/dL POC Glucose (mg/dL) 204 H (70-110) mg/dL 06/21/22 06/21/2223 Range/Units 16:28 20:31 06:33 RBC (4.30-5.90) m/uL Hgb (13.0-17.5) gm/dL Hct (39.0-53.0) % RDW (11.5-15.5) % Lymphocytes # (1.0-4.8) k/uL Sodium (137-145) mmol/L Chloride (98-107) mmol/L BUN (9-20) mg/dL Creatinine (0.66-1.25) mg/dL Glucose (74-99) mg/dL POC Glucose (mg/dL) 169 H 204 H 199 H (70-110) mg/dL Assessment and Plan Assessment: Impression 1. ESRD on dialysis Thursday. 2. Right pleural thickening with pleural plaque and pulmonary calcificationm, status post right VATS biopsy, removal of pleurx, pathology consistent with benign fibrous tissue with fibrosis/scar, mild chronic inflammation and hemosi lyudmila laden histiocytes 3. Coronary artery disease status post bypass graft in the past 4. Anemia hemoglobin is 10, at target Recommendation 1. Check iron saturation and replenish iron stores if necessary. 2. Maintain Thursday schedule , we will dialyze him for 20 half hours and ultrafiltration target is 2.5 L
--- NOTE | 2022-06-22 07:51 | P.PN ---
Subjective Progress Note Date: 06/22/22 Principal diagnosis: Right pleural thickening with pleural plaque and pulmonary calcification. Previous medical history of coronary artery disease status post CABG 2021, recurrent pleural effusions status post left-sided as well as right-sided thoracentesis and subsequent placement of right-sided Pleurx catheter, previous tobacco dependence, home oxygen dependent on 2 L nasal cannula, end-stage renal disease with hemodialysis Thursday/Thursday/Thursday, hypertension, hyperlipidemia, non-insulin dependent diabetes. POD #5 bronchoscopy, right video-assisted thoracoscopic surgery with pleural biopsy, removal of Pleurx catheter. The patient was seen and examined sitting up in a recliner on the cardiac stepdown unit in no acute distress. States pain is controlled on current medication regimen. Remains in sinus rhythm. Right pleural chest tube remains present to water seal, 200 mL thin serosanguinous drainage in the last 24 hours. He has been ambulatory in his room. No other new concerns. Objective - Vital Signs Vital signs: Vital Signs Temp 98.2 F 06/22/22 03:48 Pulse 65 06/22/22 03:48 Resp 18 06/22/22 03:48 BP 153/65 06/22/22 03:48 Pulse Ox 100 06/22/22 03:48 FiO2 Intake & Output 06/21/22 06/22/22 06/22/22 18:59 06:59 18:59 Intake Total 360 Output Total 80 130 Balance 280 -130 Intake: Oral 360 Output: Chest Tube Drainage 80 130 Chest Tube Right 80 130 Posterior Chest - Exam CONSTITUTIONAL: Appears comfortable, cooperative, no acute distress RESPIRATORY: Lungs sounds diminished on the right. Respirations even, nonlabored. Currently on 2LPM NC with oxygen saturation 100%. Able to achieve 1250 mL on his incentive spirometer CARDIOVASCULAR: S1, S2 present. Regular rate and rhythm, sinus rhythm on telemetry. Palpable peripheral pulses bilaterally. No edema present. No calf pain or tenderness noted, refusing SCDs GASTROINTESTINAL: Abdomen soft, nontender, nondistended. Active bowel sounds present 4 quadrants. Tolerating diet GENITOURINARY: Receives dialysis through left upper extremity AV fistula INTEGUMENTARY: Skin is warm and dry with evidence of good perfusion NEUROLOGIC: Cranial nerves II through XII intact MUSKULOSKELETAL: Able to move all extremities, strength equal bilaterally, gait normal PSYCHIATRIC: Alert and oriented to person place and time, appropriate affect, intact judgment and insight INVASIVE LINES AND TUBES: Right pleural chest tube present to water seal, no air leak present, 200 mL serosanguineous drainage in the last 24 hours - Allied health notes Allied health notes reviewed: nursing - Labs CBC & Chem 7: 06/21/22 06:51 06/22/22 09:12 Labs: Abnormal Lab Results - Last 24 Hours (Table) 06/21/22 06/21/22 06/21/22 Range/Units 06:51 06:51 11:37 RBC 3.25 L (4.30-5.90) m/uL Hgb 10.0 L (13.0-17.5) gm/dL Hct 31.8 L (39.0-53.0) % RDW 15.9 H (11.5-15.5) % Lymphocytes # 0.7 L (1.0-4.8) k/uL Sodium 132 L (137-145) mmol/L Chloride 94 L (98-107) mmol/L BUN 32 H (9-20) mg/dL Creatinine 4.80 H (0.66-1.25) mg/dL Glucose 168 H (74-99) mg/dL POC Glucose (mg/dL) 204 H (70-110) mg/dL 06/21/22 06/21/22 06/22/22 Range/Units 16:28 20:31 06:33 RBC (4.30-5.90) m/uL Hgb (13.0-17.5) gm/dL Hct (39.0-53.0) % RDW (11.5-15.5) % Lymphocytes # (1.0-4.8) k/uL Sodium (137-145) mmol/L Chloride (98-107) mmol/L BUN (9-20) mg/dL Creatinine (0.66-1.25) mg/dL Glucose (74-99) mg/dL POC Glucose (mg/dL) 169 H 204 H 199 H (70-110) mg/dL - Imaging and Cardiology Chest x-ray: report reviewed, image reviewed Assessment and Plan Assessment: Right pleural thickening with pleural plaque and pulmonary calcificationm, status post right VATS biopsy, removal of pleurx, pathology consistent with benign fibrous tissue with fibrosis/scar, mild chronic inflammation and hemosiderin laden histiocytes History of coronary artery disease status post CABG 2021 Recurrent pleural effusions status post left-sided as well as right-sided thoracentesis and subsequent placement of right-sided pleurx catheter Previous tobacco dependence Home oxygen dependent on 2 L nasal cannula End-stage renal disease with hemodialysis Thursday/Thursday/Thursday Hypertension Hyperlipidemia Non-insulin dependent diabetes. Plan: Will leave chest tube in for 1 more day, patient to have dialysis tomorrow, then removal of chest tube then discharge to home Encourage use of incentive spirometry 10 times every hour while awake, bronchodilators per pulmonology Hemodialysis management per nephrology Increase activity as tolerated, PT/OT following Pain control per current medication regimen, encourage medication usage More recommendations to follow
[2022-06-22] MEDS: BUDESONIDE 1 MG/2 ML NEBU INHALATION SCH ×2 (08:16→21:30)
[2022-06-22] MEDS: IPRATROPIUM-ALBUTEROL 3 ML NEB IH SCH ×4 (08:16→21:30)
[2022-06-22] MEDS: CALCIUM ACETATE 667 MG TAB PO SCH ×2 (08:23→20:17)
[2022-06-22] MEDS: ASPIRIN 81 MG PO SCH (08:23)
[2022-06-22] MEDS: DAPAGLIFLOZIN PROPANEDIOL 10 MG TABLET PO SCH (08:24)
[2022-06-22] MEDS: HEPARIN SODIUM,PORCINE/PF 5,000 UNIT/0.5 ML SYRINGE SQ SCH ×3 (08:24→23:48)
[2022-06-22] MEDS: amLODIPine 10 MG TAB PO SCH (08:24)
[2022-06-22] MEDS: CLOPIDOGREL 75 MG TAB PO SCH (08:24)
[2022-06-22] MEDS: PANTOPRAZOLE 40 MG TABLET PO SCH (08:24)
[2022-06-22] MEDS: FOLIC ACID-VIT B COMPLEX-VIT C 1 CAP PO SCH (08:24)
[2022-06-22] MEDS: hydrALAZINE HCL 50 MG TAB PO SCH ×3 (08:24→21:19)
[2022-06-22 09:53] LABS: Albumin 3.4 g/dL (3.5-5.0); Calcium 8.7 mg/dL (8.4-10.2); Potassium 5.7 mmol/L (3.5-5.1); Total Bilirubin 0.5 mg/dL (0.2-1.3); Total Protein 6.5 g/dL (6.3-8.2)
[2022-06-22] MEDS ORDERED: SODIUM ZIRCONIUM CYCLOSILICATE 10 GM PACKET PO ONE (11:00)
[2022-06-22 11:20] LABS: Anisocytosis Slight; Basophils % (A) 0 %; Eosinophils # (A) 0.4 k/uL (0-0.7); Eosinophils % (A) 6 %; HCT 32.1 % (39.0-53.0); HGB 10.1 gm/dL (13.0-17.5); Hypochromasia Slight; Lymphocytes # (A) 0.6 k/uL (1.0-4.8); Lymphocytes % (A) 10 %; MCH 31.1 pg (25.0-35.0); MCHC 31.3 g/dL (31.0-37.0); MCV 99.3 fL (80.0-100.0); Macrocytosis Slight; Mean Platelet Volume 8.4; Monocytes # (A) 0.5 k/uL (0-1.0); Monocytes % (A) 7 %; Neutrophils # (A) 4.8 k/uL (1.3-7.7); Neutrophils % (A) 75 %; Platelet Count 170 k/uL (150-450); RBC 3.23 m/uL (4.30-5.90); RDW 16.1 % (11.5-15.5); WBC 6.4 k/uL (3.8-10.6)
[2022-06-22 11:34] LABS: Glucose,Whole Blood 255 mg/dL (70-110)
--- NOTE | 2022-06-22 12:03 | P.PN ---
Subjective Progress Note Date: 06/22/22 Principal diagnosis: Status post bronchoscopy, video assisted thoracoscopic surgery with pleural biopsy and removal of Pleurx catheter, postoperative day #5 This is a 72-year-old white male with history of multiple medical problems including coronary artery disease, CABG 6 last year at an outside hospital, patient also has history of end-stage renal disease, on hemodialysis, history of recurrent right-sided pleural effusion post left and right sided thoracentesis with subsequent placement of right sided Pleurx catheter. Patient also had hypertension and diabetes dyslipidemia, tobacco dependence syndrome, had multiple scans of the chest demonstrating bilateral pleural effusions right greater than left. Cytology done in the past have always been negative for malignancy, however the patient continued to have significant pleural thickening and he follows up usually with Dr. Pichardo on outpatient basis. Patient was referred to thoracic surgery for open pleural biopsy and this was done today. Today, the patient underwent bronchoscopy, right video-assisted thoracoscopic surgery with pleural biopsy, and removal of Pleurx catheter. Postoperatively I was asked to see the patient in consultation, I saw the patient in the recovery room. He was already extubated, right-sided chest tube is noted with pleural VAC. Postoperative chest x-ray showed chronic pleural parenchymal changes, no evidence of pneumothorax. The patient is seen today June 18 2022 in follow-up on the selective care unit. He is postoperative day #1 following a right video-assisted thoracoscopic surgery with pleural biopsy and removal of Pleurx catheter. Chest tube remains in place. 650 ML's of serosanguineous drainage in the past 24 hours. No significant air leak noted. Chest tube remains to wall suction. Chest x-ray demonstrates right chest thoracotomy tube in place. Few scattered foci of subcutaneous emphysema along the right lateral chest wall noted. Right pleural effusion with suspected small pneumothorax noted. Increasing left basilar airspace opacities noted. He is encouraged regarding the increased use of the incentive spirometer. He is currently sitting in a chair at the bedside. Awake and alert in no acute distress. Maintaining good O2 saturations in the upper 90s on 2 L/m per nasal cannula. He is afebrile. Hemodynamically stable. White count 8.4. Hemoglobin 10.3. Platelets 191. Sodium 131. Potassium 4.8. Bicarb 27. BUN 42. Creatinine 6.73. Glucose 244. He is maintained on DuoNeb inhalations. Heparin for DVT prophylaxis. Reevaluated today on 06/19/22, patient is now postoperative day #2, he underwent right DVT assisted thoracoscopic surgery with pleural biopsy and removal of Pleurx catheter. Patient is doing well clinically however continues to have significant amount of drainage in his right pleural VAC. He had about 450 ML of serosanguineous drainage in the last 24 hours. Chest x-ray showed no evidence of pneumothorax. Continues to have a trapped lung findings. Patient did get dialysis yesterday, overall he is doing fairly well and as expected. Hemoglobin today is 9.7 WBC count is 7.1 Reevaluated today on 06/20/22, patient is now postoperative day #3, doing fairly well, patient is undergoing hemodialysis. Patient is status post bronchoscopy, right video-assisted thoracoscopic surgery with pleural biopsy, removal of Pleurx catheter. No complaints, patient denies any significant pulmonary symptoms, remains in si nus rhythm, hemodynamically stable, right-sided pleural chest tube remains in place, 500 mL of serosanguineous drainage noted in the last 24 hours. Clearly the chest tube is not ready to be removed at this point yet WBC count 5.7 hemoglobin 10.2 sodium is 128 potassium 4.8 BUN is 42 creatinine 6.49 this is being addressed by nephrology on the case Reevaluated today on 06/21/2022, patient is now postoperative day #4, doing well, relatively asymptomatic, continues to have significant serosanguineous drainage from the right sided chest tube, over 250 mL in the last 24 hours, and the tube is remaining. Patient denies any shortness of breath, no cough, pathology from the right pleural biopsy came back benign mostly fibrotic tissue, no evidence of malignancy. CBC is basically unremarkable hemoglobin is 10 and a left was are normal BUN is 32 creatinine 4.80 Reevaluated today on 06/22/2022, patient is now postoperative day #5, doing well, relatively asymptomatic. Had about over 200 mL of serosanguineous drainage from his right sided chest tube, surgery is considering removing the chest tube. Clinically the patient is doing great, and again his biopsies came back negative for malignancy. CBC today is normal electrolytes are normal potassium is 5.2 blood sugar is 255 renal profile is abnormal patient does have chronic kidney disease. Is on hemodialysis Objective - Vital Signs Vital signs: Vital Signs Temp 98.1 F 06/22/22 08:00 Pulse 62 04/30/23 11:47 Resp 18 06/22/22 08:00 BP 118/54 06/22/22 08:00 Pulse Ox 99 06/22/22 08:16 FiO2 Intake & Output 06/21/22 06/22/22 06/22/22 18:59 06:59 18:59 Intake Total 360 240 Output Total 80 130 50 Balance 280 -130 190 Intake: Oral 360 240 Output: Chest Tube Drainage 80 130 50 Chest Tube Right 80 130 50 Posterior Chest - Exam Physical Exam: Revealed a 72-year-old white male in no distress, on 2 L nasal cannula, O2 sats is 99% HEENT:[Neck is supple.] [No neck masses.] [No thyromegaly.] [No JVD.] Chest: [Crackles at the right base, right sided chest tube and pleural VAC noted, 200 mL of serosanguineous drainage noted in the last 24 hours Cardiac Exam: [Normal S1 and S2, no S3 gallop, no murmur.] Abdomen: [Soft, nontender, no megaly, no rebound, no guarding, normal bowel sounds.] Extremities: [No clubbing, no edema, no cyanosis.] Neurological Exam: [No focal neurologic deficit.] Alert oriented 3. Psychiatric: Normal mood affect and normal mental status exam. Skin: No rashes - Labs CBC & Chem 7: 06/22/22 11:04 06/22/22 11:08 Labs: Abnormal Lab Results - Last 24 Hours (Table) 06/21/22 06/21/22 06/22/22 Range/Units 16:28 20:31 06:33 RBC (4.30-5.90) m/uL Hgb (13.0-17.5) gm/dL Hct (39.0-53.0) % RDW (11.5-15.5) % Lymphocytes # (1.0-4.8) k/uL Sodium (137-145) mmol/L Potassium (3.5-5.1) mmol/L Chloride (98-107) mmol/L BUN (9-20) mg/dL Creatinine (0.66-1.25) mg/dL Glucose (74-99) mg/dL POC Glucose (mg/dL) 169 H 204 H 199 H (70-110) mg/dL Albumin (3.5-5.0) g/dL 06/22/22 06/22/22 06/22/22 Range/Units 09:12 11:04 11:08 RBC 3.23 L (4.30-5.90) m/uL Hgb 10.1 L (13.0-17.5) gm/dL Hct 32.1 L (39.0-53.0) % RDW 16.1 H (11.5-15.5) % Lymphocytes # 0.6 L (1.0-4.8) k/uL Sodium 131 L (137-145) mmol/L Potassium 5.7 H 5.2 H (3.5-5.1) mmol/L Chloride 95 L (98-107) mmol/L BUN 52 H (9-20) mg/dL Creatinine 6.44 H (0.66-1.25) mg/dL Glucose 158 H (74-99) mg/dL POC Glucose (mg/dL) (70-110) mg/dL Albumin 3.4 L (3.5-5.0) g/dL 06/22/22 Range/Units 11:33 RBC (4.30-5.90) m/uL Hgb (13.0-17.5) gm/dL Hct (39.0-53.0) % RDW (11.5-15.5) % Lymphocytes # (1.0-4.8) k/uL Sodium (137-145) mmol/L Potassium (3.5-5.1) mmol/L Chloride (98-107) mmol/L BUN (9-20) mg/dL Creatinine (0.66-1.25) mg/dL Glucose (74-99) mg/dL POC Glucose (mg/dL) 255 H (70-110) mg/dL Albumin (3.5-5.0) g/dL Assessment and Plan Assessment: Impression: Status post bronchoscopy, video assisted thoracoscopic surgery with pleural biopsy and removal of Pleurx catheter, postoperative day #5 Right pleural thickening with pleural plaques and pulmonary calcification. End-stage renal disease, on hemodialysis Recurrent right-sided pleural effusion, negative cytology for malignancy negative PET scan. Coronary arteriosclerosis and previous CABG Type 2 diabetes with diabetic nephropathy Benign essential hypertension Ex-smoker Chronic diastolic congestive heart failure Recommendation: Continue present supportive care measures Continue chest tube, may be removed by surgery today or tomorrow. Continue bronchodilators Continue Incentive spirometry Monitor daily x-rays of the chest. Pleural biopsy findings were discussed with the patient and reassured that the findings are benign findings Continue hemodialysis every other day. ambulation. GI and DVT prophylaxis. We'll continue to follow Time with Patient: Less than 30
[2022-06-22 16:14] LABS: Glucose,Whole Blood 170 mg/dL (70-110)
--- NOTE | 2022-06-22 17:54 | P.PN ---
Progress Note - Text Progress Note Date: 06/22/22 Hospital course: I'm rounding for Dr. Isaak Amaya Sitting up in a chair. Pain control. Appetite good. Had a bowel movement 2 days ago. No nausea vomiting. Breathing stable. Chest tube with serosanguineous output Active Medications Acetaminophen (Acetaminophen Tab 325 Mg Tab) 650 mg PO Q4HR PRN PRN Reason: Mild to Moderate Pain (1 - 6) Hydrocodone Bitart/Acetaminophen (Hydrocodone/Apap 5-325mg 1 Each Tab) 1 each PO Q4HR PRN PRN Reason: Pain Last Admin: 06/20/22 20:29 Dose: 1 each Albuterol/Ipratropium (Ipratropium-Albuterol 3 Ml Neb) 3 ml IH RT-QID [facility] Last Admin: 06/22/22 15:32 Dose: 3 ml Albuterol/Ipratropium (Ipratropium-Albuterol 3 Ml Neb) 3 ml IH RT-Q1H PRN PRN Reason: Shortness Of Breath Or Wheezing Amlodipine Besylate ([facility] 10 Mg Tab) [facility] Admin: 06/22/22 08:24 Dose: 10 mg Aspirin (Aspirin 81 Mg) [facility] Last Admin: 06/22/22 08:23 Dose: 81 mg Budesonide (Budesonide 1 Mg/2 Ml Nebu) 1 mg INHALATION RT-BID [facility] Last Admin: 06/22/22 08:16 Dose: 1 mg Calcium Acetate (Calcium Acetate 667 Mg Tab) 2,001 mg PO BID [facility] Last Admin: 06/22/22 08:23 Dose: 2,001 mg Carvedilol (Carvedilol 3.125 Mg Tab) 3.125 mg PO AC-BID [facility] Last Admin: 06/22/22 16:40 Dose: 3.125 mg Clopidogrel Bisulfate (Clopidogrel 75 Mg Tab) [facility] Last Admin: 06/22/22 08:24 Dose: 75 mg Dapagliflozin (Dapagliflozin Propanediol 10 Mg Tablet) [facility] Last Admin: 06/22/22 08:24 Dose: 10 mg Dextrose/Water (Dextrose 50% Syringe 50 Ml) 25 ml IVP PER PROTOCOL PRN; Protocol PRN Reason: Hypoglycemia Dextrose/Water (Dextrose 50% Syringe 50 Ml) 50 ml IVP PER PROTOCOL PRN; Protocol PRN Reason: Hypoglycemia Escitalopram Oxalate (Escitalopram 20 Mg Tab) 20 mg PO HS [facility] Last Admin: 06/21/22 20:26 Dose: 20 mg Heparin Sodium (Porcine) (Heparin Sodium,Porcine/Pf 5,000 Unit/0.5 Ml Syringe) 5,000 unit SQ Q8HR [facility] Last Admin: 06/22/22 16:40 Dose: 5,000 unit Hydralazine HCl (Hydralazine Hcl 50 Mg Tab) 50 mg PO TID [facility] Last Admin: 06/22/22 16:40 Dose: 50 mg Insulin Aspart (Insulin Aspart (Novolog) 100 Unit/Ml Vial) 0 unit SQ ACHS [facility]; Protocol Last Admin: 06/22/22 16:40 Dose: 1 unit Lidocaine (Lidocaine 5% Patch) 1 patch TOPICAL DAILY PRN; Protocol PRN Reason: Pain Multivit/Ca Carb/B Cmplx/FA/Prenat (Folic Acid-Vit B Complex-Vit C 1 Cap) 1 each PO QAM [facility] Last Admin: 06/22/22 08:24 Dose: 1 each Crestor ( Rosuvastatin Calcium ) 40 Mg Tablet 40 mg PO HS [facility] Last Admin: 06/21/22 20:26 Dose: Not Given Ondansetron HCl (Ondansetron 4 Mg/2 Ml Vial) 4 mg IVP Q8HR PRN PRN Reason: Nausea And Vomiting Pantoprazole Sodium (Pantoprazole 40 Mg Tablet) 40 mg PO QAM [facility] Last Admin: 06/22/22 08:24 Dose: 40 mg Sodium Chloride (Sodium Chloride 0.9% Flush 10 Ml Syringe) 10 ml IV BID [facility] Last Admin: 06/22/22 08:27 Dose: 10 ml Torsemide (Torsemide 20 Mg Tab) 20 mg PO BID PRN PRN Reason: bid nondialysis days Last Admin: 06/22/22 10:12 Dose: 20 mg Tramadol HCl (Tramadol 50 Mg Tab) 50 mg PO QID PRN PRN Reason: Pain On examination: VITAL SIGNS: [98.2, 57, 18, 134/62, 98% on 2 L] GENERAL APPEARANCE: Up in a chair HEENT: Normal external appearance of nose and ear. Oral cavity normal EYES: Pupils equal. Conjunctiva normal. NECK: JVD not raised. Mass not palpable. RESPIRATORY: Respiratory effort normal. Lungs decreased breath sound. Right- sided chest tube. CARDIOVASCULAR: First and second sounds normal. No edema. ABDOMEN: Soft. Liver and spleen not palpable. No tenderness. No mass palpable. PSYCHIATRY: Alert and oriented x3. Mood and affect normal. INVESTIGATIONS, reviewed in the clinical context: White count 6.4 hemoglobin 10.1 platelets 170 potassium 5.2 BUN 52 creatinine 6.44 Assessment and plan -Status post bronchoscopy, video-assisted rascal Andre surgery with pleural biopsy and removal of Pleurx catheter -Right pleural thickening with 2 blocks and possibly calcification -End-stage kidney disease on hemodialysis -Edecrin right pleural effusion with negative cytology for malignancy. Negative PET scan -CAD with a prior coronary bypass -Diabetes mellitus type 2 with diabetic nephropathy -Essential hypertension -Chronic congestive heart failure from diastolic dysfunction -Right-sided Pleurx catheter -Anemia of chronic kidney disease Continue current medication and treatment plan. Including bronchodilators. Discussed with patient.
[2022-06-22 20:16] LABS: Glucose,Whole Blood 278 mg/dL (70-110)
[2022-06-22] MEDS: ESCITALOPRAM 20 MG TAB PO SCH (20:17)
[2022-06-23 06:25] LABS: Glucose,Whole Blood 154 mg/dL (70-110)
[2022-06-23] MEDS: INSULIN ASPART (NovoLOG) 100 UNIT/ML VIAL SQ SCH ×4 (06:37→21:02)
[2022-06-23] MEDS: carvediloL 3.125 MG TAB PO SCH ×2 (06:37→17:40)
--- NOTE | 2022-06-23 07:25 | XR ---
EXAMINATION TYPE: XR chest 2V DATE OF EXAM: 06/23/2022 COMPARISON: 06/22/2022 TECHNIQUE: PA and lateral views submitted. HISTORY: Post lung biopsy FINDINGS: Right-sided chest tube with small loculated hydropneumothorax again noted in stable. Bilateral inters titial prominence with bilateral areas of consolidation. There is no pneumothorax. Heart enlarged and there is postsurgical changes. IMPRESSION: 1. Small residual loculated hydropneumothorax with persistent bilateral pleural-parenchymal changes g reater on the right.
--- NOTE | 2022-06-23 08:13 | P.PN ---
Subjective Progress Note Date: 06/23/22 Principal diagnosis: Right pleural thickening with pleural plaque and pulmonary calcification. Previous medical history of coronary artery disease status post CABG 2021, recurrent pleural effusions status post left-sided as well as right-sided thoracentesis and subsequent placement of right-sided Pleurx catheter, previous tobacco dependence, home oxygen dependent on 2 L nasal cannula, end-stage renal disease with hemodialysis Thursday/Thursday/Thursday, hypertension, hyperlipidemia, non-insulin dependent diabetes. POD #6 bronchoscopy, right video-assisted thoracoscopic surgery with pleural biopsy, removal of Pleurx catheter. The patient was seen and examined sitting up in a recliner on the cardiac stepdown unit in no acute distress eating breakfast. States pain is controlled on current medication regimen. Remains in sinus rhythm. Right pleural chest tube remains present to water seal, 210 mL thin serosanguinous drainage in the last 24 hours. He has been ambulatory in his room. No other new concerns. Objective - Vital Signs Vital signs: Vital Signs Temp 97 F L 06/23/22 04:00 Pulse 63 06/23/22 04:00 Resp 18 06/23/22 04:00 BP 148/66 06/23/22 04:00 Pulse Ox 94 L 06/23/22 04:00 FiO2 Intake & Output 06/22/22 06/23/22 06/23/22 18:59 06:59 18:59 Intake Total 1020 240 Output Total 50 122 Balance 970 -122 240 Intake: Oral 1020 240 Output: Chest Tube Drainage 50 122 Chest Tube Right 50 122 Posterior Chest - Exam CONSTITUTIONAL: Appears comfortable, cooperative, no acute distress RESPIRATORY: Lungs sounds diminished on the right. Respirations even, nonlabored. Currently on 2LPM NC with oxygen saturation 94%. Able to achieve 1500 mL on his incentive spirometer CARDIOVASCULAR: S1, S2 present. Regular rate and rhythm, sinus rhythm on telemetry. Palpable peripheral pulses bilaterally. No edema present GASTROINTESTINAL: Abdomen soft, nontender, nondistended. Active bowel sounds present 4 quadrants. Tolerating diet, positive bowel movement 06/22 GENITOURINARY: Receives dialysis through left upper extremity AV fistula INTEGUMENTARY: Skin is warm and dry with evidence of good perfusion NEUROLOGIC: Cranial nerves II through XII intact MUSKULOSKELETAL: Able to move all extremities, strength equal bilaterally, gait normal PSYCHIATRIC: Alert and oriented to person place and time, appropriate affect, intact judgment and insight INVASIVE LINES AND TUBES: Right pleural chest tube present to water seal, no air leak present, 210 mL serosanguineous drainage in the last 24 hours - Allied health notes Allied health notes reviewed: nursing - Labs CBC & Chem 7: 06/22/22 11:04 06/23/22 08:45 Labs: Abnormal Lab Results - Last 24 Hours (Table) 06/22/22 06/22/22 06/22/22 Range/Units 09:12 11:04 11:08 RBC 3.23 L (4.30-5.90) m/uL Hgb 10.1 L (13.0-17.5) gm/dL Hct 32.1 L (39.0-53.0) % RDW 16.1 H (11.5-15.5) % Lymphocytes # 0.6 L (1.0-4.8) k/uL Sodium 131 L (137-145) mmol/L Potassium 5.7 H 5.2 H (3.5-5.1) mmol/L Chloride 95 L (98-107) mmol/L BUN 52 H (9-20) mg/dL Creatinine 6.44 H (0.66-1.25) mg/dL Glucose 158 H (74-99) mg/dL POC Glucose (mg/dL) (70-110) mg/dL Albumin 3.4 L (3.5-5.0) g/dL 06/22/22 06/22/22 06/22/22 Range/Units 11:33 16:12 20:14 RBC (4.30-5.90) m/uL Hgb (13.0-17.5) gm/dL Hct (39.0-53.0) % RDW (11.5-15.5) % Lymphocytes # (1.0-4.8) k/uL Sodium (137-145) mmol/L Potassium (3.5-5.1) mmol/L Chloride (98-107) mmol/L BUN (9-20) mg/dL Creatinine (0.66-1.25) mg/dL Glucose (74-99) mg/dL POC Glucose (mg/dL) 255 H 170 H 278 H (70-110) mg/dL Albumin (3.5-5.0) g/dL 06/23/22 Range/Units 06:24 RBC (4.30-5.90) m/uL Hgb (13.0-17.5) gm/dL Hct (39.0-53.0) % RDW (11.5-15.5) % Lymphocytes # (1.0-4.8) k/uL Sodium (137-145) mmol/L Potassium (3.5-5.1) mmol/L Chloride (98-107) mmol/L BUN (9-20) mg/dL Creatinine (0.66-1.25) mg/dL Glucose (74-99) mg/dL POC Glucose (mg/dL) 154 H (70-110) mg/dL Albumin (3.5-5.0) g/dL - Imaging and Cardiology Chest x-ray: report reviewed, image reviewed Assessment and Plan Assessment: Right pleural thickening with pleural plaque and pulmonary calcificationm, status post right VATS biopsy, removal of pleurx, pathology consistent with benign fibrous tissue with fibrosis/scar, mild chronic inflammation and hemosiderin laden histiocytes History of coronary artery disease status post CABG 2021 Recurrent pleural effusions status post left-sided as well as right-sided thoracentesis and subsequent placement of right-sided pleurx catheter Previous tobacco dependence Home oxygen dependent on 2 L nasal cannula End-stage renal disease with hemodialysis Thursday/Thursday/Thursday Hypertension Hyperlipidemia Non-insulin dependent diabetes. Plan: Chest tube discontinued. Will repeat CXR in am and discharge to home if stable Encourage use of incentive spirometry 10 times every hour while awake, bronchodilators per pulmonology Hemodialysis management per nephrology Increase activity as tolerated, PT/OT following Pain control per current medication regimen, encourage medication usage More recommendations to follow
[2022-06-23] MEDS: HEPARIN SODIUM,PORCINE/PF 5,000 UNIT/0.5 ML SYRINGE SQ SCH ×3 (09:08→23:15)
[2022-06-23 09:15] LABS: Calcium 8.8 mg/dL (8.4-10.2); Potassium 5.3 mmol/L (3.5-5.1)
--- NOTE | 2022-06-23 09:51 | P.PN ---
Subjective Patient is seen in follow-up for end-stage renal disease. He is maintained on hemodialysis on Thursday was a Thursday schedule. Tolerating dialysis well. Denies chest pain or shortness of breath. Has a right-sided chest tube. Vital signs are stable. General: No acute distress. HEENT: Head exam is unremarkable. On nasal cannula. LUNGS: Right chest tube noted. HEART: Rate and Rhythm are regular. Abdomen: Nontender. EXTREMITITES: No edema. Objective - Vital Signs Vital signs: Vital Signs Temp 97 F L 06/23/22 04:00 Pulse 63 06/23/22 04:00 Resp 18 06/23/22 04:00 BP 148/66 06/23/22 04:00 Pulse Ox 94 L 06/23/22 04:00 FiO2 Intake & Output 06/22/22 06/23/22 06/23/22 18:59 06:59 18:59 Intake Total 1020 240 Output Total 50 122 Balance 970 -122 240 Intake: Oral 1020 240 Output: Chest Tube Drainage 50 122 Chest Tube Right 50 122 Posterior Chest - Labs CBC & Chem 7: 06/22/22 11:04 06/23/22 08:45 Labs: Abnormal Lab Results - Last 24 Hours (Table) 06/22/22 06/22/22 06/22/22 Range/Units 09:12 11:04 11:08 RBC 3.23 L (4.30-5.90) m/uL Hgb 10.1 L (13.0-17.5) gm/dL Hct 32.1 L (39.0-53.0) % RDW 16.1 H (11.5-15.5) % Lymphocytes # 0.6 L (1.0-4.8) k/uL Sodium 131 L (137-145) mmol/L Potassium 5.7 H 5.2 H (3.5-5.1) mmol/L Chloride 95 L (98-107) mmol/L BUN 52 H (9-20) mg/dL Creatinine 6.44 H (0.66-1.25) mg/dL Glucose 158 H (74-99) mg/dL POC Glucose (mg/dL) (70-110) mg/dL Albumin 3.4 L (3.5-5.0) g/dL 06/22/22 06/22/22 06/22/22 Range/Units 11:33 16:12 20:14 RBC (4.30-5.90) m/uL Hgb (13.0-17.5) gm/dL Hct (39.0-53.0) % RDW (11.5-15.5) % Lymphocytes # (1.0-4.8) k/uL Sodium (137-145) mmol/L Potassium (3.5-5.1) mmol/L Chloride (98-107) mmol/L BUN (9-20) mg/dL Creatinine (0.66-1.25) mg/dL Glucose (74-99) mg/dL POC Glucose (mg/dL) 255 H 170 H 278 H (70-110) mg/dL Albumin (3.5-5.0) g/dL 06/23/22 06/23/22 Range/Units 06:24 08:45 RBC (4.30-5.90) m/uL Hgb (13.0-17.5) gm/dL Hct (39.0-53.0) % RDW (11.5-15.5) % Lymphocytes # (1.0-4.8) k/uL Sodium 128 L (137-145) mmol/L Potassium 5.3 H (3.5-5.1) mmol/L Chloride 94 L (98-107) mmol/L BUN 63 H (9-20) mg/dL Creatinine 7.33 H* (0.66-1.25) mg/dL Glucose 244 H (74-99) mg/dL POC Glucose (mg/dL) 154 H (70-110) mg/dL Albumin (3.5-5.0) g/dL Assessment and Plan Plan: Assessment: 1. End-stage renal disease maintained on hemodialysis on Thursday schedule. 2. Hyponatremia secondary to chronic kidney disease. 3. Right pleural thickening status post VATS procedure with biopsy. No malignancy noted. 4. Recurrent pleural effusions status post thoracentesis and Pleurx catheter. 5. Hypertension with chronic any disease. Stable. 6. Chronic knee disease mineral bone disease maintained on PhosLo. Plan: Currently seen while undergoing hemodialysis. Next treatment on Thursday. Stop Farxiga as he is ESRD. Increase torsemide dose to 40 mg qday.
[2022-06-23] MEDS: hydrALAZINE HCL 50 MG TAB PO SCH ×3 (09:55→21:03)
[2022-06-23] MEDS: IPRATROPIUM-ALBUTEROL 3 ML NEB IH SCH ×4 (10:01→20:51)
[2022-06-23] MEDS: BUDESONIDE 1 MG/2 ML NEBU INHALATION SCH ×2 (10:01→20:51)
[2022-06-23 11:49] LABS: Glucose,Whole Blood 187 mg/dL (70-110)
[2022-06-23] MEDS: CALCIUM ACETATE 667 MG TAB PO SCH ×2 (12:45→21:02)
[2022-06-23] MEDS: amLODIPine 10 MG TAB PO SCH (12:46)
[2022-06-23] MEDS: CLOPIDOGREL 75 MG TAB PO SCH (12:46)
[2022-06-23] MEDS: ASPIRIN 81 MG PO SCH (12:46)
[2022-06-23] MEDS: PANTOPRAZOLE 40 MG TABLET PO SCH (12:46)
[2022-06-23] MEDS: FOLIC ACID-VIT B COMPLEX-VIT C 1 CAP PO SCH (12:46)
[2022-06-23] MEDS: DAPAGLIFLOZIN PROPANEDIOL 10 MG TABLET PO SCH (12:48)
[2022-06-23 14:42] VITALS: BMI 27.7
--- NOTE | 2022-06-23 14:59 | P.PN ---
Subjective Progress Note Date: 06/23/22 Principal diagnosis: Status post pleural biopsy. Reevaluated today on 06/19/22, patient is now postoperative day #2, he underwent right DVT assisted thoracoscopic surgery with pleural biopsy and removal of Pleurx catheter. Patient is doing well clinically however continues to have significant amount of drainage in his right pleural VAC. He had about 450 ML of serosanguineous drainage in the last 24 hours. Chest x-ray showed no evidence of pneumothorax. Continues to have a trapped lung findings. Patient did get dialysis yesterday, overall he is doing fairly well and as expected. Hemoglobin today is 9.7 WBC count is 7.1 Reevaluated today on 06/20/22, patient is now postoperative day #3, doing fairly well, patient is undergoing hemodialysis. Patient is status post bronchoscopy, right video-assisted thoracoscopic surgery with pleural biopsy, removal of Pleurx catheter. No complaints, patient denies any significant pulmonary symptoms, remains in sinus rhythm, hemodynamically stable, right-sided pleural chest tube remains in place, 500 mL of serosanguineous drainage noted in the last 24 hours. Clearly the chest tube is not ready to be removed at this point yet WBC count 5.7 hemoglobin 10.2 sodium is 128 potassium 4.8 BUN is 42 creatinine 6.49 this is being addressed by nephrology on the case Reevaluated today on 06/21/2022, patient is now postoperative day #4, doing well, relatively asymptomatic, continues to have significant serosanguineous drainage from the right sided chest tube, over 250 mL in the last 24 hours, and the tube is remaining. Patient denies any shortness of breath, no cough, pathology from the right pleural biopsy came back benign mostly fibrotic tissue, no evidence of malignancy. CBC is basically unremarkable hemoglobin is 10 and a left was are normal BUN is 32 creatinine 4.80 Reevaluated today on 06/22/2022, patient is now postoperative day #5, doing well, relatively asymptomatic. Had about over 200 mL of serosanguineous drainage from his right sided chest tube, surgery is considering removing the chest tube. Clinically the patient is doing great, and again his biopsies came back negative for malignancy. CBC today is normal electrolytes are normal potassium is 5.2 blood sugar is 255 renal profile is abnormal patient does have chronic kidney disease. Is on hemodialysis Progress note dated 06/23/2022. 72-year-old male seen today in room 370. He is currently undergoing hemodialysis. He's postop day #6. Clinically, the patient's doing well. It appears that his biopsies are all negative. It showed benign mostly fibrous tissue, without evidence of malignancy. Labs today include a sodium 128, potassium 5.3, chlorides 94, CO2 26, BUN 63, and creatinine 7.33. Today's chest x-ray shows a right-sided chest tube with small loculated hydropneumothorax. This area stable on chest x-ray. Objective - Vital Signs Vital signs: Vital Signs Temp 97.4 F L 06/23/22 12:51 Pulse 72 06/23/22 13:22 Resp 20 06/23/22 12:51 BP 143/63 06/23/22 12:51 Pulse Ox 99 06/23/22 10:01 FiO2 Intake & Output 06/22/22 06/23/22 06/23/22 18:59 06:59 18:59 Intake Total 1020 780 Output Total 50 122 2800 Balance 970 -122 -2020 Weight 103.4 kg Intake: Oral 1020 480 Hemodialysis 300 Output: Chest Tube Drainage 50 122 Chest Tube Right 50 122 Posterior Chest Hemodialysis 2800 - Exam No acute distress, oriented 3. HEENT examination is grossly unremarkable. Neck supple. Full range of motion. No adenopathy thyromegaly or neck vein distention. Cardiovascular examination reveals regular rhythm rate. S1-S2 normal. No S3 or S4. No discernible murmur noted. Heart rate 72 bpm. Lungs reveal minimal scattered rhonchi. No wheezes or crackles. 2 L saturation is 96%. Abdomen soft bowel sounds are heard. No masses or tenderness. Extremities are intact. No cyanosis clubbing or edema. Skin is without rash or lesion. Neurologic examination is brief but nonfocal. - Labs CBC & Chem 7: 06/22/22 11:04 06/23/22 08:45 Labs: Abnormal Lab Results - Last 24 Hours (Table) 06/22/22 06/22/22 06/23/22 Range/Units 16:12 20:14 06:24 Sodium (137-145) mmol/L Potassium (3.5-5.1) mmol/L Chloride (98-107) mmol/L BUN (9-20) mg/dL Creatinine (0.66-1.25) mg/dL Glucose (74-99) mg/dL POC Glucose (mg/dL) 170 H 278 H 154 H (70-110) mg/dL 06/23/22 06/23/22 Range/Units 08:45 11:46 Sodium 128 L (137-145) mmol/L Potassium 5.3 H (3.5-5.1) mmol/L Chloride 94 L (98-107) mmol/L BUN 63 H (9-20) mg/dL Creatinine 7.33 H* (0.66-1.25) mg/dL Glucose 244 H (74-99) mg/dL POC Glucose (mg/dL) 187 H (70-110) mg/dL Assessment and Plan Assessment: Postop day #6, status post bronchoscopy, video-assisted thoracoscopic pleural biopsy, and removal of a Pleurx catheter. Right pleural thickening with pleural plaques and pulmonary calcification, negative for malignancy. End-stage renal disease, currently on hemodialysis. Recurrent right-sided pleural effusion, with negative cytology and negative PET scan. CAD with previous bypass grafting. Type 2 diabetes with diabetic nephropathy. Benign essential hypertension. History of previous tobacco use. Chronic diastolic CHF. Plan: Plan dated 06/23/2022. The patient's chest x-ray is stable. Labs, x-rays, medications are reviewed. The patient is undergoing hemodialysis. We will continue to follow make recommendations along the way. Fluid cytology, and pathology, are all negative for mesothelioma. Additional recommendations and suggestions will follow. We continue with GI and DVT prophylaxis. Time with Patient: Less than 30
[2022-06-23 16:29] LABS: Glucose,Whole Blood 237 mg/dL (70-110)
--- NOTE | 2022-06-23 17:04 | P.PN ---
Progress Note - Text Progress Note Date: 06/23/22 Hospital course: I'm rounding for Dr. Isaak Amaya Sitting up in a chair. Pain control. Appetite good. Had a bowel movement 2 days ago. No nausea vomiting. Breathing stable. Chest tube with serosanguineous output May 1: Getting hemodialyzed today. Chest tube in place-plan is to be discon tinued this afternoon.. Eating fair. Breathing stable. Active Medications Acetaminophen (Acetaminophen Tab 325 Mg Tab) 650 mg PO Q4HR PRN PRN Reason: Mild to Moderate Pain (1 - 6) Hydrocodone Bitart/Acetaminophen (Hydrocodone/Apap 5-325mg 1 Each Tab) 1 each PO Q4HR PRN PRN Reason: Pain Last Admin: 06/20/22 20:29 Dose: 1 each Albuterol/Ipratropium (Ipratropium-Albuterol 3 Ml Neb) 3 ml IH RT-QID [facility] Last Admin: 06/23/22 16:29 Dose: 3 ml Albuterol/Ipratropium (Ipratropium-Albuterol 3 Ml Neb) 3 ml IH RT-Q1H PRN PRN Reason: Shortness Of Breath Or Wheezing Last Admin: 06/23/22 13:07 Dose: 3 ml Amlodipine Besylate (A[facility]ipine 10 Mg Tab) [facility] Last Admin: 06/23/22 12:46 Dose: 10 mg Aspirin (Aspirin 81 Mg) 81 mg PO QAM [facility] Last Admin: 06/23/22 12:46 Dose: 81 mg Budesonide (Budesonide 1 Mg/2 Ml Nebu) 1 mg INHALATION RT-BID [facility] Last Admin: 06/23/22 10:01 Dose: 1 mg Calcium Acetate (Calcium Acetate 667 Mg Tab) 2,001 mg PO BID [facility] Last Admin: 06/23/22 12:45 Dose: 2,001 mg Carvedilol (Carvedilol 3.125 Mg Tab) 3.125 mg PO AC-BID [facility] Last Admin: 06/23/22 06:37 Dose: 3.125 mg Clopidogrel Bisulfate (Clopidogrel 75 Mg Tab) 75 mg PO QAM [facility] Last Admin: 06/23/22 12:46 Dose: 75 mg Dextrose/Water (Dextrose 50% Syringe 50 Ml) 25 ml IVP PER PROTOCOL PRN; Protocol PRN Reason: Hypoglycemia Dextrose/Water (Dextrose 50% Syringe 50 Ml) 50 ml IVP PER PROTOCOL PRN; Protocol PRN Reason: Hypoglycemia Escitalopram Oxalate (Escitalopram 20 Mg Tab) 20 mg PO HS [facility] Last Admin: 06/22/22 20:17 Dose: 20 mg Heparin Sodium (Porcine) (Heparin Sodium,Porcine/Pf 5,000 Unit/0.5 Ml Syringe) 5,000 unit SQ Q8HR [facility] Last Admin: 06/23/22 09:08 Dose: Not Given Hydralazine HCl (Hydralazine Hcl 50 Mg Tab) 50 mg PO TID [facility] Last Admin: 06/23/22 09:55 Dose: Not Given Insulin Aspart (Insulin Aspart (Novolog) 100 Unit/Ml Vial) 0 unit SQ ACHS [facility]; Protocol Last Admin: 06/23/22 12:46 Dose: 1 unit Lidocaine (Lidocaine 5% Patch) 1 patch TOPICAL DAILY PRN; Protocol PRN Reason: Pain Multivit/Ca Carb/B Cmplx/FA/Prenat (Folic Acid-Vit B Complex-Vit C 1 Cap) 1 each PO QAM [facility] Last Admin: 06/23/22 12:46 Dose: 1 each Crestor ( Rosuvastatin Calcium ) 40 Mg Tablet 40 mg PO [facility] Last Admin: 06/22/22 20:12 Dose: Not Given Ondansetron HCl (Ondansetron 4 Mg/2 Ml Vial) 4 mg IVP Q8HR PRN PRN Reason: Nausea And Vomiting Pantoprazole Sodium (Pantoprazole 40 Mg Tablet) 40 mg PO QAM [facility] Last Admin: 06/23/22 12:46 Dose: 40 mg Sodium Chloride (Sodium Chloride 0.9% Flush 10 Ml Syringe) 10 ml IV BID [facility] Last Admin: 06/23/22 09:09 Dose: 10 ml Torsemide (Torsemide 20 Mg Tab) 40 mg PO DAILY [facility] Tramadol HCl (Tramadol 50 Mg Tab) 50 mg PO QID PRN PRN Reason: Pain On examination: VITAL SIGNS: 97.4, 68, 20, 143/63, 99% on 2 L GENERAL APPEARANCE: Reclining in bed, getting hemodialysis HEENT: Normal external appearance of nose and ear. Oral cavity normal EYES: Pupils equal. Conjunctiva normal. NECK: JVD not raised. Mass not palpable. RESPIRATORY: Respiratory effort normal. Lungs decreased breath sound. Right- sided chest tube. CARDIOVASCULAR: First and second sounds normal. No edema. ABDOMEN: Soft. Liver and spleen not palpable. No tenderness. No mass palpable. PSYCHIATRY: Alert and oriented x3. Mood and affect normal. INVESTIGATIONS, reviewed in the clinical context: White count 6.4 hemoglobin 10.1 platelets 170 potassium 5.2 BUN 52 creatinine 6.44 Assessment and plan -Status post bronchoscopy, video-assisted rascal Nadre surgery with pleural biopsy and removal of Pleurx catheter -Right pleural thickening with 2 plaques and possibly calcification -End-stage kidney disease on hemodialysis -Recurrent right pleural effusion with negative cytology for malignancy. Negative PET scan -CAD with a prior coronary bypass -Diabetes mellitus type 2 with diabetic nephropathy -Essential hypertension -Chronic congestive heart failure from diastolic dysfunction -Right-sided Pleurx catheter -Anemia of chronic kidney disease Getting hemodialyzed today. Right-sided chest tube removed this afternoon. Increase activity. Incentive spirometry. Repeat checks x-ray in the morning. Discussed.
[2022-06-23 20:40] LABS: Glucose,Whole Blood 207 mg/dL (70-110)
[2022-06-23] MEDS: ESCITALOPRAM 20 MG TAB PO SCH (21:02)
[2022-06-24] MEDS: INSULIN ASPART (NovoLOG) 100 UNIT/ML VIAL SQ SCH ×2 (06:31→11:46)
[2022-06-24 06:32] LABS: Glucose,Whole Blood 154 mg/dL (70-110)
[2022-06-24] MEDS: carvediloL 3.125 MG TAB PO SCH (06:34)
[2022-06-24 08:24] VITALS: TEMP 98
[2022-06-24] MEDS: BUDESONIDE 1 MG/2 ML NEBU INHALATION SCH (08:24)
[2022-06-24] MEDS: IPRATROPIUM-ALBUTEROL 3 ML NEB IH SCH ×3 (08:24→15:29)
[2022-06-24] MEDS: CALCIUM ACETATE 667 MG TAB PO SCH (08:25)
[2022-06-24] MEDS: ASPIRIN 81 MG PO SCH (08:25)
[2022-06-24] MEDS: PANTOPRAZOLE 40 MG TABLET PO SCH (08:25)
[2022-06-24] MEDS: amLODIPine 10 MG TAB PO SCH (08:26)
[2022-06-24] MEDS: CLOPIDOGREL 75 MG TAB PO SCH (08:26)
[2022-06-24] MEDS: FOLIC ACID-VIT B COMPLEX-VIT C 1 CAP PO SCH (08:26)
[2022-06-24] MEDS: HEPARIN SODIUM,PORCINE/PF 5,000 UNIT/0.5 ML SYRINGE SQ SCH (08:26)
[2022-06-24] MEDS: hydrALAZINE HCL 50 MG TAB PO SCH (08:26)
--- NOTE | 2022-06-24 08:33 | XR ---
EXAMINATION TYPE: XR chest 2V DATE OF EXAM: 06/24/2022 COMPARISON: 06/23/2022 TECHNIQUE: PA and lateral views submitted. HISTORY: Postlung biopsy FINDINGS: Right-sided chest tube has been removed with stable small loculated hydropneumothorax again noted in stable. Bilateral interstitial prominence with bilateral areas of consolidation. There is no pneumoth orax. Heart enlarged and there is postsurgical changes. IMPRESSION: 1. Small residual loculated hydropneumothorax stable with persistent bilateral pleural-parenchymal ch anges greater on the right. .
[2022-06-24] MEDS ORDERED: TORSEMIDE 20 MG TAB PO SCH (09:00)
--- NOTE | 2022-06-24 09:42 | P.PN ---
Subjective Patient is seen in follow-up for end-stage renal disease. He is maintained on hemodialysis on Thursday was a Thursday schedule. Tolerated 2.8 L ultrafiltration yesterday. Denies chest pain or shortness of breath. Chest tube removed. Vital signs are stable. General: No acute distress. HEENT: Head exam is unremarkable. On nasal cannula. LUNGS: No audible rhonchi or wheezes. HEART: Rate and Rhythm are regular. Abdomen: Nontender. EXTREMITITES: No edema. Objective - Vital Signs Vital signs: Vital Signs Temp 98.0 F 06/24/22 08:19 Pulse 61 06/24/22 09:07 Resp 16 06/24/22 09:07 BP 137/56 06/24/22 08:19 Pulse Ox 100 06/24/22 08:25 FiO2 Intake & Output 06/23/22 06/24/22 06/24/22 18:59 06:59 18:59 Intake Total 1020 240 Output Total 2800 Balance -1780 240 Weight 103.4 kg Intake: Oral 720 240 Hemodialysis 300 Output: Hemodialysis 2800 - Labs CBC & Chem 7: 06/22/22 11:04 06/23/22 08:45 Labs: Abnormal Lab Results - Last 24 Hours (Table) 06/23/22 06/23/22 06/23/22 Range/Units 11:46 16:28 20:39 POC Glucose (mg/dL) 187 H 237 H 207 H (70-110) mg/dL 06/24/22 Range/Units 06:30 POC Glucose (mg/dL) 154 H (70-110) mg/dL Assessment and Plan Plan: Assessment: 1. End-stage renal disease maintained on hemodialysis on Thursday schedule. 2. Hyponatremia secondary to chronic kidney disease. 3. Right pleural thickening status post VATS procedure with biopsy. No malignancy noted. 4. Recurrent pleural effusions status post thoracentesis and Pleurx catheter. 5. Hypertension with chronic kidney disease. Stable. 6. Chronic knee disease mineral bone disease maintained on PhosLo. Plan: Hemodialysis tomorrow. Stopped as he is ESRD. Maintain torsemide.
--- NOTE | 2022-06-24 09:51 | P.PN ---
Subjective Progress Note Date: 06/24/22 Principal diagnosis: Right pleural thickening with pleural plaque and pulmonary calcification. Past medical history significant for end-stage renal disease with hemodialysis /Thursday/Thursday, coronary artery disease status post CABG in [facility] 1 year ago, recurrent pleural effusions status post left-sided as well as right-sided thoracentesis and subsequent placement of right-sided Pleurx catheter, hypertension, diabetes, hyperlipidemia, home oxygen dependent on 2 L nasal cannula, [id number] diabetes mellitus and previous tobacco dependence. POD #7 bronchoscopy, right video-assisted thoracoscopic surgery with pleural biopsy, removal of Pleurx catheter. The patient was seen and examined today 06/24/2022 at his bedside on the cardiac stepdown unit. Currently he is sitting up to the bedside and eating his breakfast, is awake, alert, oriented 3 and is in no acute apparent distress. His right pleural chest tube was removed without incident yesterday. Chest x- ray this morning shows small residual loculated hydropneumothorax stable with persistent bilateral ECMO changes greater on the right. He denies any complaints of pain or shortness of breath at this time. Reports he has been up ambulating in his room and in the cardiac stepdown hallway. Oxygen saturations are 99% on 2 L nasal cannula and he is achieving 1500 mL on his incentive spirometry with encouragement. Patient underwent hemodialysis yesterday with 2800 mL hemodialyzed. Objective - Vital Signs Vital signs: Vital Signs Temp 98.0 F 06/24/22 08:19 Pulse 61 06/24/22 09:07 Resp 16 06/24/22 09:07 BP 137/56 06/24/22 08:19 Pulse Ox 100 06/24/22 08:25 FiO2 Intake & Output 06/23/22 06/24/22 06/24/22 18:59 06:59 18:59 Intake Total 1020 240 Output Total 2800 Balance -1780 240 Weight 103.4 kg Intake: Oral 720 240 Hemodialysis 300 Output: Hemodialysis 2800 - Exam CONSTITUTIONAL: Appears comfortable, cooperative, no acute distress RESPIRATORY: Lungs sounds diminished bilaterally, right greater than left. Respirations symmetrical, nonlabored. Currently on 2 L nasal cannula with oxygen saturation 99%. Able to achieve 1500 mL on incentive spirometry. Strong cough. CARDIOVASCULAR: S1, S2 present. Regular rate and rhythm, sinus rhythm with first-degree heart block on telemetry, heart rate 61 BPM. Palpable peripheral pulses bilaterally. No edema present. No calf pain or tenderness noted. SCDs present. GASTROINTESTINAL: Abdomen soft, nontender, nondistended. Active bowel sounds present 4 quadrants. Tolerating diet. GENITOURINARY: Left arm AV fistula with good thrill and bruit. Dialysis are Thursday, Thursday and Fridays. INTEGUMENTARY: Skin is warm and dry with no clubbing or cyanosis present. Right chest thoracic incisions well approximated and covered with dry intact dressing. NEUROLOGIC: Cranial nerves II through XII intact. No focal deficits. MUSKULOSKELETAL: Able to move all extremities, strength equal bilaterally, gait normal. PSYCHIATRIC: Alert and oriented to person place and time, appropriate affect, intact judgment and insight. - Allied health notes Allied health notes reviewed: nursing - Labs CBC & Chem 7: 06/22/22 11:04 06/23/22 08:45 Labs: Abnormal Lab Results - Last 24 Hours (Table) 06/23/22 06/23/22 06/23/22 Range/Units 11:46 16:28 20:39 POC Glucose (mg/dL) 187 H 237 H 207 H (70-110) mg/dL 06/24/22 Range/Units 06:30 POC Glucose (mg/dL) 154 H (70-110) mg/dL - Imaging and Cardiology Chest x-ray: report reviewed, image reviewed Assessment and Plan Assessment: Right pleural thickening with pleural plaque and pulmonary calcification, status post bronchoscopy, right video-assisted thoracoscopic surgery with pleural biopsy, pathology consistent with benign fibrosis tissue with fibrosis/scar, mild chronic inflammation and hemosiderin laden histiocytes Recurrent pleural effusions status post left-sided as well as right-sided thoracentesis and subsequent placement of right-sided Pleurx catheter 03/21/22, and subsequent removal of Pleurx catheter End-stage renal disease with hemodialysis Thursday/Thursday/Thursday Coronary artery disease status post CABG in [facility] 1 year ago Heart failure with preserved ejection fraction Mitral regurgitation, trace to mild Hypertension Diabetes mellitus, [id number] Hyperlipidemia Previous tobacco dependence On 2 L nasal cannula oxygen at home Plan: Encourage use of incentive spirometry 10 times every hour while awake, bronchodilators per pulmonology recommendations. Hemodialysis management per nephrology. Increase activity as tolerated, PT/OT following. Pain control per current medication regimen, encourage medication usage. Anticipate discharge home within the next 24 hours. More recommendations to follow based on patient's clinical course. Time with Patient: Greater than 30
[2022-06-24 11:06] VITALS: BP 130/51; RESP 18
[2022-06-24 11:44] LABS: Glucose,Whole Blood 207 mg/dL (70-110)
--- NOTE | 2022-06-24 12:03 | P.PN ---
Subjective Progress Note Date: 06/24/22 Principal diagnosis: Status post pleural biopsy. Reevaluated today on 06/19/22, patient is now postoperative day #2, he underwent right DVT assisted thoracoscopic surgery with pleural biopsy and removal of Pleurx catheter. Patient is doing well clinically however continues to have significant amount of drainage in his right pleural VAC. He had about 450 ML of serosanguineous drainage in the last 24 hours. Chest x-ray showed no evidence of pneumothorax. Continues to have a trapped lung findings. Patient did get dialysis yesterday, overall he is doing fairly well and as expected. Hemoglobin today is 9.7 WBC count is 7.1 Reevaluated today on 06/20/22, patient is now postoperative day #3, doing fairly well, patient is undergoing hemodialysis. Patient is status post bronchoscopy, right video-assisted thoracoscopic surgery with pleural biopsy, removal of Pleurx catheter. No complaints, patient denies any significant pulmonary symptoms, remains in sinus rhythm, hemodynamically stable, right-sided pleural chest tube remains in place, 500 mL of serosanguineous drainage noted in the last 24 hours. Clearly the chest tube is not ready to be removed at this point yet WBC count 5.7 hemoglobin 10.2 sodium is 128 potassium 4.8 BUN is 42 creatinine 6.49 this is being addressed by nephrology on the case Reevaluated today on 06/21/2022, patient is now postoperative day #4, doing well, relatively asymptomatic, continues to have significant serosanguineous drainage from the right sided chest tube, over 250 mL in the last 24 hours, and the tube is remaining. Patient denies any shortness of breath, no cough, pathology from the right pleural biopsy came back benign mostly fibrotic tissue, no evidence of malignancy. CBC is basically unremarkable hemoglobin is 10 and a left was are normal BUN is 32 creatinine 4.80 Reevaluated today on 06/22/2022, patient is now postoperative day #5, doing well, relatively asymptomatic. Had about over 200 mL of serosanguineous drainage from his right sided chest tube, surgery is considering removing the chest tube. Clinically the patient is doing great, and again his biopsies came back negative for malignancy. CBC today is normal electrolytes are normal potassium is 5.2 blood sugar is 255 renal profile is abnormal patient does have chronic kidney disease. Is on hemodialysis Progress note dated 06/23/2022. 72-year-old male seen today in room 370. He is currently undergoing hemodialysis. He's postop day #6. Clinically, the patient's doing well. It appears that his biopsies are all negative. It showed benign mostly fibrous tissue, without evidence of malignancy. Labs today include a sodium 128, potassium 5.3, chlorides 94, CO2 26, BUN 63, and creatinine 7.33. Today's chest x-ray shows a right-sided chest tube with small loculated hydropneumothorax. This area stable on chest x-ray. Progress note dated 06/24/2022. 72-year-old male seen again in room 370. Currently, the patient appears to be very stable, not receiving any IV fluids, and currently on 2 L of oxygen. He is postop day #7, and all of his biopsies, and cytology were negative. No new labs today other than a glucose of 207. The patient's chest x-ray shows a small residual loculated hydropneumothorax. It is essentially unchanged. Objective - Vital Signs Vital signs: Vital Signs Temp 98.0 F 06/24/22 08:19 Pulse 62 06/24/22 11:46 Resp 18 06/24/22 11:46 BP 130/51 06/24/22 11:04 Pulse Ox 99 06/24/22 11:04 FiO2 Intake & Output 06/23/22 06/24/22 06/24/22 18:59 06:59 18:59 Intake Total 1020 240 Output Total 2800 Balance -1780 240 Weight 103.4 kg Intake: Oral 720 240 Hemodialysis 300 Output: Hemodialysis 2800 - Exam No acute distress, oriented 3. No respiratory distress. HEENT examination is grossly unremarkable. Neck supple. Full range of motion. No adenopathy thyromegaly or neck vein distention. Cardiovascular examination reveals regular rhythm rate. S1-S2 normal. No S3 or S4. No discernible murmur noted. Heart rate 62 bpm. Lungs reveal minimal scattered rhonchi. No wheezes or crackles. 2 L saturation is 99 %. Abdomen soft bowel sounds are heard. No masses or tenderness. Extremities are intact. No cyanosis clubbing or edema. Skin is without rash or lesion. Neurologic examination is brief but nonfocal. - Labs CBC & Chem 7: 06/22/22 11:04 06/23/22 08:45 Labs: Abnormal Lab Results - Last 24 Hours (Table) 06/23/22 06/23/22 06/24/22 Range/Units 16:28 20:39 06:30 POC Glucose (mg/dL) 237 H 207 H 154 H (70-110) mg/dL 06/24/22 Range/Units 11:38 POC Glucose (mg/dL) 207 H (70-110) mg/dL Assessment and Plan Assessment: Postop day #7, status post bronchoscopy, video-assisted thoracoscopic pleural biopsy, and removal of a Pleurx catheter. Right pleural thickening with pleural plaques and pulmonary calcification, negative for malignancy. End-stage renal disease, currently on hemodialysis. Recurrent right-sided pleural effusion, with negative cytology and negative PET scan. CAD with previous bypass grafting. Type 2 diabetes with diabetic nephropathy. Benign essential hypertension. History of previous tobacco use. Chronic diastolic CHF. Plan: Plan dated 06/23/2022. The patient's chest x-ray is stable. Labs, x-rays, medications are reviewed. The patient is undergoing hemodialysis. We will continue to follow make recommendations along the way. Fluid cytology, and pathology, are all negative for mesothelioma. Additional recommendations and suggestions will follow. We continue with GI and DVT prophylaxis. Plan dated 06/24/2022. The patient's currently on 2 L. He's not receiving any IV fluids. From the pulmonary standpoint, the patient is stable for consideration of discharge. No additional recommendations are made. Labs, x-rays, and medications are reviewed. Fluid cytology and all pathology, is negative for mesothelioma. No additional recommendations are made. Time with Patient: Less than 30
[2022-06-24 13:13] VITALS: PULSE 59
--- NOTE | 2022-06-24 13:33 | P.DS ---
Providers Date of admission: 06/17/22 10:04 Expected date of discharge: 06/24/22 Attending physician: Maury Wilkinson MD Consults: 06/17/22 16:07 Consult Physician Routine Consulting Provider: Angelique Shannon Consult Reason/Comments: post lung biopsy Do you want consulting provider notified?: Yes Consult Physician Routine Consulting Provider: Isaak Amaya Consult Reason/Comments: med mgt Do you want consulting provider notified?: Yes 06/17/22 17:37 Consult Physician Routine Consulting Provider: Stella Gomez Consult Reason/Comments: hemodialysis patient Do you want consulting provider notified?: Yes 06/18/22 08:53 Consult Physician Routine Consulting Provider: Stella Gomez Consult Reason/Comments: Dialysis management Do you want consulting provider notified?: Yes Primary care physician: [facility] Course: FINAL DIAGNOSIS: 1. Right pleural thickening with pleural plaque and pulmonary calcification, biopsy consistent with benign fibrous tissue with fibrosis/scar, mild chronic inflammation, and hemosiderin laden histiocytes 2. History of CAD status post CABG in 2021 3. Recurrent pleural effusions status post left-sided as well as right-sided thoracentesis and subsequent placement of right-sided pleurX catheter 4. Previous tobacco dependence 5. Home oxygen dependent on 2 LPM NC 6. End-stage renal disease with hemodialysis M/W/F 7. Hypertension 8. Hyperlipidemia 9. Non-insulin dependent diabetes PRINCIPAL PROCEDURE: 1. Bronchoscopy 2. Right video-assisted thoracoscopic surgery with pleural biopsy 3. Removal of pleurX catheter HISTORY OF PRESENT ILLNESS: This is a 72 year old gentleman who follows outpatient with Dr. Isaak Amaya for primary care and Dr. Pichardo for pulmonology. He has been hospitalized several times this year for shortness of breath. He has had multiple CT scans of the chest demonstrating bilateral pleural effusions, right greater then left. He has undergone thoracentesis with fluid sent for culture and cytology, none of which demonstrated cancer or mesothelioma. He had a pleurx catheter placed, but eventually it stopped draining. The patient and family were wishing for a definitive diagnosis. The patient was referred to Dr. Wilkinson from cardiothoracic surgery who had placed his pleurX catheter with request for surgical lung biopsy. The usual perioperative course was discussed in detail with the patient and his family, all risks and benefits were explained, all questions were answered, and consent was obtained to proceed with surgery. The patient was scheduled for surgery at the earliest possible date. HOSPITAL COURSE: The patient was brought to the hospital on 06/17/22, taken to the preoperative area, prepared in the usual fashion, and subsequently taken to the operating room where Dr. Wilkinson performed surgical lung biopsy and removal of pleurX catheter. Upon completion of surgery the patient was extubated and taken to the recovery room for further monitoring. He was eventually admitted to [address] [place] [address] cardiac stepdown unit. He continued to have significant thin serosanguinous drainage from into his chest tube and this was left in to accomodate the drainage. He was dialyzed according to his home schedule. Eventually his drainage tapered off and his chest tube was able to be removed without incident. Follow up chest x-ray was stable. His oxygen was titrated down to his home dose, he was evaluated by physical and occupational therapy, he was tolerating oral diet, his pain was controlled, and he was ready to be discharged to home with [facility] home care on postoperative day #5. He received written and verbal instruction regarding his medications, activity restrictions, signs and symptoms requiring physician notification, and follow-up appointments. Patient Condition at Discharge: Stable Plan - Discharge Summary Discharge Rx Participant: No New Discharge Prescriptions: New Acetaminophen Tab [Tylenol] 650 mg PO Q4HR PRN tab PRN Reason: Mild To Moderate Pain (1 - 6) Continue Clopidogrel [Plavix] 75 mg PO QAM Calcium Acetate [PhosLo] 3 cap PO BID HYDROcodone/APAP 5-325MG [Lynn 5-325] 1 tab PO Q4HR PRN PRN Reason: Pain amLODIPine [Norvasc] 10 mg PO QAM Torsemide [Demadex] 20 mg PO BID PRN PRN Reason: bid nondialysis days Rosuvastatin Calcium [Crestor] 40 mg PO HS Empagliflozin [Jardiance] 25 mg PO QAM Aspirin 81 mg PO QAM traMADol HCl [Ultram] 50 mg PO QID PRN PRN Reason: Pain Pantoprazole [Protonix] 40 mg PO QAM Escitalopram [Lexapro] 20 mg PO HS carvediloL [Coreg] 3.125 mg PO BID Lidocaine 5% Patch [Lidoderm 5% Patch] 1 patch TOPICAL DAILY PRN PRN Reason: Pain Ipratropium-Albuterol Nebulize [Duoneb 0.5 mg-3 mg/3 ml Soln] 3 ml INHALATION RT-QID PRN PRN Reason: Shortness Of Breath Folic Acid-Vit B Complex-Vit C [Nephrocaps] 1 cap PO QAM hydrALAZINE HCL [Apresoline] 50 mg PO TID 30 Days #90 tab Epoetin Unknown Dose 1 dose SQ MOWEFR Discontinued Lansoprazole [Prevacid] 30 mg PO QAM Discharge Medication List Calcium Acetate [PhosLo] 3 cap PO BID 03/11/22 [History] Clopidogrel [Plavix] 75 mg PO QAM 03/11/22 [History] Escitalopram [Lexapro] 20 mg PO HS 03/11/22 [History] Pantoprazole [Protonix] 40 mg PO QAM 03/11/22 [History] carvediloL [Coreg] 3.125 mg PO BID 03/11/22 [History] HYDROcodone/APAP 5-325MG [Lynn 5-325] 1 tab PO Q4HR PRN 04/03/22 [History] Folic Acid-Vit B Complex-Vit C [Nephrocaps] 1 cap PO QAM 05/04/22 [History] Ipratropium-Albuterol Nebulize [Duoneb 0.5 mg-3 mg/3 ml Soln] 3 ml INHALATION RT-QID PRN 05/04/22 [History] Lidocaine 5% Patch [Lidoderm 5% Patch] 1 patch TOPICAL DAILY PRN 05/04/22 [History] hydrALAZINE HCL [Apresoline] 50 mg PO TID 30 Days #90 tab 05/09/22 [Rx] Aspirin 81 mg PO QAM 05/23/22 [History] Empagliflozin [Jardiance] 25 mg PO QAM 05/23/22 [History] Epoetin Unknown Dose 1 dose SQ MOWEFR 05/23/22 [History] Rosuvastatin Calcium [Crestor] 40 mg PO HS 05/23/22 [History] Torsemide [Demadex] 20 mg PO BID PRN 05/23/22 [History] amLODIPine [Norvasc] 10 mg PO QAM 05/23/22 [History] traMADol HCl [Ultram] 50 mg PO QID PRN 05/23/22 [History] Acetaminophen Tab [Tylenol] 650 mg PO Q4HR PRN tab 06/23/22 [Rx] Follow up Appointment(s)/Referral(s): Isaak Amaya MD [Primary Care Provider] - 07/03/22 2:30 pm [facility], [NON-STAFF] - Care,[facility] [NON-STAFF] - Maury Wilkinson MD [STAFF PHYSICIAN] - 07/01/22 2:15 pm Michael Pichardo MD [STAFF PHYSICIAN] - 07/08/22 10:00 am Patient Instructions/Handouts: Video Assisted Thoracoscopic Surgery (DC) Activity/Diet/Wound Care/Special Instructions: DISCHARGE INSTRUCTIONS: 1. No driving for 2 weeks, or until physician gives their ok. 2. No lifting, pushing, or pulling more than 10 pounds for 2 weeks. The physician will advise of any restriction changes. 3. Continue pain control per home dose of as needed medications 4. Continue with incentive spirometry and splinting until otherwise directed by the physician. 5. Leave chest tube dressing for 48 hours. After that, remove all dressings and shower daily. 6. Routine incision care. No powders, lotions, ointments on incisions. 7. Please call surgeon/POCKET FLAP CREASING MACHINE OPERATOR for temp greater than 101 F or purulent drainage from incisions. Discharge/Stand Alone Forms: Who Do I Call?, Community Resources, Personal Care Director Rn Discharge Disposition: HOME WITH HOME HEALTH SERVICES
== END 2022-06-24 15:49 | disposition home health service (06) | DRG 166 ==
LOC: 2ORMAIN 10:04 → EDSTATUS 12:00 → 3SCARD 14:51
PROVIDERS: ADMIT Thoracic Surgery (Cardiothoracic Vascular Surgery); ATTEND Thoracic Surgery (Cardiothoracic Vascular Surgery)
PROC: 3E0T3BZ Introduction of Anesthetic Agent into Peripheral Nerves and Plexi, Percutaneous Approach (ICD-10-PCS; 2022-06-17)
PROC: 0BBN4ZX Excision of Right Pleura, Percutaneous Endoscopic Approach, Diagnostic (ICD-10-PCS; principal; 2022-06-17 12:00)
PROC: 0W9900Z Drainage of Right Pleural Cavity with Drainage Device, Open Approach (ICD-10-PCS; 2022-06-17 12:00)
PROC: 5A1D70Z Performance of Urinary Filtration, Intermittent, Less than 6 Hours Per Day (ICD-10-PCS; 2022-06-18)
DX: J92.0 Pleural plaque with presence of asbestos (principal); N18.6 End stage renal disease; I13.2 Hypertensive heart and chronic kidney disease with heart failure and with stage 5 chronic kidney disease, or end stage renal disease; J94.8 Other specified pleural conditions; E87.1 Hypo-osmolality and hyponatremia; I50.32 Chronic diastolic (congestive) heart failure; J98.19 Other pulmonary collapse; J91.8 Pleural effusion in other conditions classified elsewhere; D63.1 Anemia in chronic kidney disease; E11.22 Type 2 diabetes mellitus with diabetic chronic kidney disease; J44.9 Chronic obstructive pulmonary disease, unspecified; I34.0 Nonrheumatic mitral (valve) insufficiency; I25.10 Atherosclerotic heart disease of native coronary artery without angina pectoris; E78.5 Hyperlipidemia, unspecified; H91.92 Unspecified hearing loss, left ear; M89.8X9 Other specified disorders of bone, unspecified site; Z77.090 Contact with and (suspected) exposure to asbestos; Z99.81 Dependence on supplemental oxygen; Z99.2 Dependence on renal dialysis; Z95.1 Presence of aortocoronary bypass graft; Z87.891 Personal history of nicotine dependence; Z79.84 Long term (current) use of oral hypoglycemic drugs; Z79.02 Long term (current) use of antithrombotics/antiplatelets; Z79.82 Long term (current) use of aspirin; Z88.5 Allergy status to narcotic agent; Z91.040 Latex allergy status; Z88.8 Allergy status to other drugs, medicaments and biological substances; Z88.1 Allergy status to other antibiotic agents; Z79.899 Other long term (current) drug therapy; Z80.1 Family history of malignant neoplasm of trachea, bronchus and lung; Z80.8 Family history of malignant neoplasm of other organs or systems
CPT/HCPCS: 64999; 71045; 71046; 76942; 80048; 80053; 84132; 85025; 85027; 85610; 86850; 86900; 86901; 88108; 88305; 90935; 94640; 94760

== ENCOUNTER → 2022-08-19 | Outpatient (CLI) | payer MEDICARE ==
--- NOTE | 2022-08-19 17:12 | CT ---
EXAMINATION TYPE: CT chest wo con DATE OF EXAM: 08/19/2022 COMPARISON: 05/05/2022 HISTORY: chest pain CT DLP: [address] of the chest was performed with lung and mediastinal window settings submitted. The la ck of contrast limits evaluation of the vascular, mediastinal and parenchymal structures including th e upper abdomen. LUNGS: [id number] bilateral pleural effusions with maximal AP thickness on the right 5.7 cm a nd on the left 4 cm. Effusions are essentially stable. High-density material is again noted that the lung bases which may reflect pleural and pulmonary calcification. There is chronic pulmonary venous d ecompensation without overt failure. Scattered areas of subpleural fibrosis noted. MEDIASTINUM/ARNALDO: Thoracic aorta is of normal caliber with limited evaluation given lack of contrast . Stable cardiomegaly. Sternotomy wires mediastinal clips in place. No evidence for mediastinal mass. No lymph nodes greater than 1cm. UPPER ABDOMEN: 8 cholelithiasis. Renal vascular calcifications identified. OTHER: No significant other abnormality. IMPRESSION: 1. Stable small moderate bilateral pleural effusions with chronic pulmonary venous decompensation wi thout overt failure. Scattered areas of subpleural fibrosis as well as calcifications noted dependent ly. 2. Continued cardiomegaly.
== END | disposition home or self-care (01) ==
LOC: RADCTMAIN 16:26
PROVIDERS: ATTEND Family Medicine
DX: J90 Pleural effusion, not elsewhere classified (principal); I51.7 Cardiomegaly
CPT/HCPCS: 71250

== ENCOUNTER 2022-09-30 19:33 | Inpatient (IN) | payer MEDICARE ==
[2022-09-30 20:21] LABS: Anisocytosis Slight; Basophils # (A) 0.1 k/uL (0-0.2); Basophils % (A) 1 %; Eosinophils # (A) 0.1 k/uL (0-0.7); Eosinophils % (A) 2 %; HCT 31.6 % (39.0-53.0); HGB 10.4 gm/dL (13.0-17.5); Hypochromasia Slight; Lymphocytes # (A) 0.6 k/uL (1.0-4.8); Lymphocytes % (A) 9 %; MCH 31.8 pg (25.0-35.0); MCV 96.2 fL (80.0-100.0); Macrocytosis Slight; Mean Platelet Volume 9.8; Monocytes # (A) 0.5 k/uL (0-1.0); Monocytes % (A) 8 %; Neutrophils # (A) 4.6 k/uL (1.3-7.7); Neutrophils % (A) 78 %; RBC 3.28 m/uL (4.30-5.90); RDW 17.5 % (11.5-15.5); WBC 5.9 k/uL (3.8-10.6)
[2022-09-30 21:00] LABS: ALT 16 U/L (4-49); AST 28 U/L (17-59); African American GFR (CKD) 12 (>60 ml/min/1.73 sqM); Albumin 3.7 g/dL (3.5-5.0); Alkaline Phosphatase 183 U/L (38-126); Anion Gap 16 mmol/L; Blood Urea Nitrogen 48 mg/dL (9-20); Calcium 8.8 mg/dL (8.4-10.2); Carbon Dioxide 27 mmol/L (22-30); Chloride 94 mmol/L (98-107); Glucose 137 mg/dL (74-99); Lipase 115 U/L (23-300); Magnesium 2.2 mg/dL (1.6-2.3); Non-African American GFR(CKD) 11 (>60 ml/min/1.73 sqM); Potassium 4.3 mmol/L (3.5-5.1); Sodium 137 mmol/L (137-145); Total Bilirubin 1.2 mg/dL (0.2-1.3); Total Protein 7.3 g/dL (6.3-8.2)
[2022-09-30 21:13] LABS: Large Platelets Present; Polychromasia Present
[2022-09-30 21:14] LABS: Platelet Count 91 k/uL (150-450)
--- NOTE | 2022-09-30 21:33 | XR ---
EXAMINATION TYPE: XR chest 2V DATE OF EXAM: 09/30/2022 9:21 PM COMPARISON: Chest radiographs from 06/24/2022 TECHNIQUE: XR chest 2V Frontal and lateral views of the chest. CLINICAL INDICATION:Male, 72 years old with history of Weakness; FINDINGS: Lungs/Pleura: There is no evidence of pleural effusion, focal consolidation, or pneumothorax. Pulmonary vascularity: Pulmonary vascular congestion. Heart/mediastinum: Cardiomediastinal silhouette is enlarged and stable. Musculoskeletal: No acute osseous pathology. Midline sternotomy wires are noted. IMPRESSION: Cardiomegaly, pulmonary vascular congestion and bilateral pleural effusions. Correlate with BNP for c ongestive heart failure.
--- NOTE | 2022-09-30 21:46 | ED ---
General Adult HPI - General Chief complaint: Nausea/Vomiting/Diarrhea Stated complaint: Vomitting, Weakness Time Seen by Provider: 09/30/22 19:42 Source: patient Mode of arrival: ambulatory Limitations: no limitations - History of Present Illness Initial comments: This is a 72-year-old male with a past medical history including end-stage renal disease on dialysis Thursday, Thursday and Thursday, hypertension, diabetes as well as pulmonary fibrosis on oxygen presents emergency department for feeling "blah." The patient denied any specific complaints but stated that he felt weak and stating "I hadn't thought was going to ." The patient denied any shortness of breath or difficulty in breathing but stated that ever since dialysis yesterday he has felt overall weak. The patient did state that he did not miss any dialysis and has been compliant with all of his medications. The patient denied any other acute pain or complaint at this time. - Related Data Home Medications Medication Instructions Recorded Confirmed Calcium Acetate [PhosLo] 3 cap PO BID 03/11/22 06/13/22 Clopidogrel [Plavix] 75 mg PO QAM 03/11/22 06/17/22 Escitalopram [Lexapro] 20 mg PO HS 03/11/22 06/17/22 Pantoprazole [Protonix] 40 mg PO QAM 03/11/22 06/13/22 carvediloL [Coreg] 3.125 mg PO BID 03/11/22 06/13/22 HYDROcodone/APAP 5-325MG [[place] 1 tab PO Q4HR PRN 04/03/22 06/17/22 5-325] Folic Acid-Vit B Complex-Vit C 1 cap PO QAM 05/04/22 06/13/22 [Nephrocaps] Ipratropium-Albuterol Nebulize 3 ml INHALATION RT-QID PRN 05/04/22 06/13/22 [Duoneb 0.5 mg-3 mg/3 ml Soln] Lidocaine 5% Patch [Lidoderm 5% 1 patch TOPICAL DAILY PRN 05/04/22 06/17/22 Patch] Aspirin 81 mg PO QAM 05/23/22 06/17/22 Empagliflozin [Jardiance] 25 mg PO QAM 05/23/22 06/13/22 Epoetin Unknown Dose 1 dose SQ MOWEFR 05/23/22 06/17/22 Rosuvastatin Calcium [Crestor] 40 mg PO HS 05/23/22 06/17/22 Torsemide [Demadex] 20 mg PO BID PRN 05/23/22 06/13/22 amLODIPine [Norvasc] 10 mg PO QAM 05/23/22 06/13/22 traMADol HCl [Ultram] 50 mg PO QID PRN 05/23/22 06/17/22 Previous Rx's Medication Instructions Recorded hydrALAZINE HCL [Apresoline] 50 mg PO TID 30 Days #90 tab 05/09/22 Acetaminophen Tab [Tylenol] 650 mg PO Q4HR PRN tab 06/23/22 Allergies Allergy/AdvReac Type Severity Reaction Status Date / Time cephalexin [From Keflex] Allergy Rash/Hives Verified 06/17/22 10:31 codeine Allergy Rash/Hives Verified 06/17/22 10:31 latex Allergy Rash/Hives Verified 06/17/22 10:31 atorvastatin AdvReac ACHES AND Verified 06/17/22 10:31 WEAKNESS lisinopril AdvReac DRY COUGH Verified 06/17/22 10:31 metoprolol AdvReac DRY COUGH Verified 06/17/22 10:31 Review of Systems ROS Statement: Those systems with pertinent positive or pertinent negative responses have been documented in the HPI. ROS Other: All systems not noted in ROS Statement are negative. Past Medical History Past Medical History: Coronary Artery Disease (CAD), Heart Failure, Diabetes Mellitus, Dialysis, Eye Disorder, GERD/Reflux, Hearing Disorder / Deafness, Hyperlipidemia, Hypertension, Memory Impairment, Renal Disease, Seizure Disorder Additional Past Medical History / Comment(s): Currently has R sided pleux cath, 2021 CABG since then has had recurrent bilateral pleural effusions, ESRD with dialysis on M//, NIDDM/diet only-has [place], past L eye retinal detachment/surgery, deaf L side History of Any Multi-Drug Resistant Organisms: None Reported Past Surgical History: Adenoidectomy, Heart Catheterization With Stent, Tonsillectomy Additional Past Surgical History / Comment(s): 6 vessel coronary bypass in 2021, bilateral cataract surgery, L eye surgery for detached retina, left arm hemodialysis AV fistula; right-sided Pleurx catheter placed 03/21/22, colonoscopy, cervical surgery/benign growth. Past Anesthesia/Blood Transfusion Reactions: Previous Problems w/ Anesthesia, Postoperative Nausea & Vomiting (PONV) Additional Past Anesthesia/Blood Transfusion Reaction / Comment(s): Pt has had blood transfusion long time ago/no reaction. Date of Last Stent Placement:: 1999 at [facility]. Past Psychological History: Depression Smoking Status: Former smoker Past Alcohol Use History: None Reported Past Drug Use History: None Reported - Past Family History Daughter(s) Family Medical History: No Reported History Father Family Medical History: Cancer Additional Family Medical History / Comment(s): Lung cancer to bone cancer Mother Family Medical History: No Reported History General Exam Limitations: no limitations General appearance: alert, in no apparent distress, obese Head exam: Present: atraumatic, normocephalic, normal inspection Eye exam: Present: normal appearance, PERRL Pupils: Present: normal accommodation ENT exam: Present: normal exam, normal oropharynx, mucous membranes moist Neck exam: Present: normal inspection, full ROM Respiratory exam: Present: normal lung sounds bilaterally Cardiovascular Exam: Present: regular rate, normal rhythm, normal heart sounds GI/Abdominal exam: Present: soft, normal bowel sounds Extremities exam: Present: normal inspection, full ROM Back exam: Present: normal inspection, full ROM Neurological exam: Present: alert, oriented X3, CN II-XII intact Psychiatric exam: Present: normal affect, normal mood Skin exam: Present: warm, dry Course Vital Signs 09/30/22 19:34 Temperature 98.3 F Pulse Rate 98 Respiratory 20 Rate Blood Pressure 185/97 O2 Sat by Pulse 96 Oximetry EKG Findings - EKG Comments: EKG Findings:: An EKG was obtained and was interpreted by myself showing a rate of 96, OH interval of 208, QR gnosticism 142 and QTC of 511. This EKG showed a normal sinus rhythm with no ST segment elevation or depression noted. Medical Decision Making - Medical Decision Making Was pt. sent in by a medical professional or institution (, PA, PHYSICIAN GENERAL INTERNAL MEDICINE, urgent care, hospital, or [facility]...) When possible be specific @ -No Did you speak to anyone other than the patient for history (EMS, parent, family, police, friend...)? What history was obtained from this source @ -No Did you review nursing and triage notes (agree or disagree)? Why? @ -I reviewed and agree with nursing and triage notes Were old charts reviewed (outside hosp., previous admission, EMS record, old EKG, old radiological studies, urgent care reports/EKG's, [facility] records)? Report findings @ -No old charts were reviewed Differential Diagnosis (chest pain, altered mental status, abdominal pain women, abdominal pain men, vaginal bleeding, weakness, fever, dyspnea, syncope, headache, dizziness, GI bleed, back pain, seizure, CVA, palpatations, mental health)? @ -Fluid overload, hyperkalemia, hyponatremia EKG interpreted by me (3pts min.). @ -As above X-rays interpreted by me (1pt min.). @ -Chest x-ray was obtained and was interpreted by myself showing cardiomegaly, pulmonary vascular congestion and bilateral pleural effusions. CT interpreted by me (1pt min.). @ -None done U/S interpreted by me (1pt. min.). @ -None done What testing was considered but not performed or refused? (CT, X-rays, U/S, labs)? Why? @ -None What meds were considered but not given or refused? Why? @ -None Did you discuss the management of the patient with other professionals (professionals i.e. , PA, PHYSICIAN GENERAL INTERNAL MEDICINE, lab, RT, psych nurse, social sciences instructor, business unit controller, teacher, control officer, case assistant)? Give summary @ -Yes, both the primary care physician is contacted for admission as well as the glass sander belt, Dr. Lopez Was smoking cessation discussed for >3mins.? @ -No Was critical care preformed (if so, how long)? @ -No Were there social determinants of health that impacted care today? How? (Homelessness, low income, unemployed, alcoholism, drug addiction, noyola sportation, low edu. Level, literacy, decrease access to med. care, fci, rehab)? @ -No Was there de-escalation of care discussed even if they declined (Discuss DNR or withdrawal of care, Hospice)? DNR status @ -No What co-morbidities impacted this encounter? (DM, HTN, Smoking, COPD, CAD, Cancer, CVA, ARF, Chemo, Hep., AIDS, mental health diagnosis, sleep apnea, morbid obesity)? @ -Hypertension, diabetes, end-stage renal disease on dialysis Was patient admitted / discharged? Hospital course, mention meds given and route, prescriptions, significant lab abnormalities, going to OR and other pertinent info. @ -The patient was seen and evaluated emergency department. Physical exam, the patient was resting in bed without any acute distress. Vital signs admission were stable. Laboratory workup was obtained and was largely within normal limits however the patient had a chest x-ray that showed likely fluid overload. The patient setting of continued overall weakness and failure to thrive and fluid overload, the patient will be admitted for further workup and evaluation. The patient was agreeable to this and all discretions were answered. The patient was admitted stable condition. Undiagnosed new problem with uncertain prognosis? @ -No Drug Therapy requiring intensive monitoring for toxicity (Heparin, Nitro, Insulin, Cardizem)? @ -No Were any procedures done? @ -No Diagnosis/symptom? @ -Weakness, failure to thrive, fluid overload Acute, or Chronic, or Acute on Chronic? @ -Acute Uncomplicated (without systemic symptoms) or Complicated (systemic symptoms)? @ -Complicated Side effects of treatment? @ -No Exacerbation, Progression, or Severe Exacerbation? @ -No Poses a threat to life or bodily function? How? (Chest pain, [place], [place], pneumonia, PE, COPD, DKA, ARF, appy, cholecystitis, CVA, Diverticulitis, Homicidal, Suicidal, threat to staff... and all critical care pts) @ -Yes, continued fluid overload can lead to permanent damage and possible . - Lab Data Result diagrams: 09/30/22 20:13 09/30/22 20:13 Lab Results 09/30/22 09/30/22 09/30/22 Range/Units 20:13 20:13 21:08 WBC 5.9 (3.8-10.6) k/uL RBC 3.28 L (4.30-5.90) m/uL Hgb 10.4 L (13.0-17.5) gm/dL Hct 31.6 L (39.0-53.0) % MCV 96.2 (80.0-100.0) fL MCH 31.8 (25.0-35.0) pg MCHC 33.0 (31.0-37.0) g/dL RDW 17.5 H (11.5-15.5) % Plt Count 91 L (150-450) k/uL MPV 9.8 Neutrophils % 78 % Lymphocytes % 9 % Monocytes % 8 % Eosinophils % 2 % Basophils % 1 % Neutrophils # 4.6 (1.3-7.7) k/uL Lymphocytes # 0.6 L (1.0-4.8) k/uL Monocytes # 0.5 (0-1.0) k/uL Eosinophils # 0.1 (0-0.7) k/uL Basophils # 0.1 (0-0.2) k/uL Manual Slide Review Performed Large Platelets Present Polychromasia Present Hypochromasia Slight Anisocytosis Slight Macrocytosis Slight PT 12.5 H (9.0-12.0) sec INR 1.2 H (<1.2) APTT 27.6 (22.0-30.0) sec Sodium 137 (137-145) mmol/L Potassium 4.3 (3.5-5.1) mmol/L Chloride 94 L (98-107) mmol/L Carbon Dioxide 27 (22-30) mmol/L Anion Gap 16 mmol/L BUN 48 H (9-20) mg/dL Creatinine 5.08 H (0.66-1.25) mg/dL Est GFR (CKD-EPI)AfAm 12 (>60 ml/min/1.73 sqM) Est GFR (CKD-EPI)NonAf 11 (>60 ml/min/1.73 sqM) Glucose 137 H (74-99) mg/dL Calcium 8.8 (8.4-10.2) mg/dL Magnesium 2.2 (1.6-2.3) mg/dL Total Bilirubin 1.2 (0.2-1.3) mg/dL AST 28 (17-59) U/L ALT 16 (4-49) U/L Alkaline Phosphatase 183 H (38-126) U/L Total Protein 7.3 (6.3-8.2) g/dL Albumin 3.7 (3.5-5.0) g/dL Lipase 115 (23-300) U/L Disposition Clinical Impression: Fluid overload, Weakness Disposition: ADMITTED IP TO THIS [facility] Condition: Stable Is patient prescribed a controlled substance at d/c from ED?: No Referrals: Isaak Amaya MD [Primary Care Provider] - 1-2 days Time of Disposition: 22:00 Decision to Admit Reason: Admit from EC Decision Date: 09/30/22 Decision Time: 22:00
[2022-09-30 22:06] LABS: INR 1.2 (<1.2); Partial Thromboplastin Time 27.6 sec (22.0-30.0); Prothrombin Time 12.5 sec (9.0-12.0)
[2022-09-30] MEDS ORDERED: NALOXONE 0.4 MG/ML 1 ML VIAL IV PRN (22:20)
[2022-09-30] MEDS ORDERED: hydrALAZINE HCL 50 MG TAB PO STA (23:47)
[2022-10-01 01:01] LABS: Glucose,Whole Blood 127 mg/dL (70-110)
[2022-10-01] MEDS ORDERED: ONDANSETRON 4 MG/2 ML VIAL IVP PRN (02:53)
[2022-10-01 07:16] LABS: Glucose,Whole Blood 158 mg/dL (70-110)
[2022-10-01] MEDS ORDERED: ACETAMINOPHEN TAB 325 MG TAB PO PRN (10:27)
[2022-10-01] MEDS ORDERED: amLODIPine 10 MG TAB PO SCH (10:30)
[2022-10-01] MEDS ORDERED: hydrALAZINE HCL 20 MG/ML 1 ML VIAL IVP PRN (10:45)
--- NOTE | 2022-10-01 10:48 | P.NPCON ---
History of Present Illness - Reason for Consult end stage renal disease - History of Present Illness Reason for consultation: End-stage renal disease History of present illness: Patient is a 72-year-old male seen in renal consultation for end-stage renal disease. He is maintained on hemodialysis on Thursday schedule. Last hemodialysis was on Thursday. Patient states the last 2-3 days he's been feeling weak. He's been having vomiting and multiple episodes of diarrhea. States he is having about 8 episodes of diarrhea daily. He also admits to noticing blood in his bowel movements. Patient states he has a history of GI bleed in the past. Patient states he takes blood thinner but is not sure of the name of the medications. Chest x-ray showed pleural effusions. Patient has a history of diastolic CHF with mild mitral regurgitation. Patient also had developed right pleural thickening and underwent VATS procedure with biopsy which showed no malignancy. Currently he's on room air. Blood pressure has been on the higher side. Afebrile. Hemoglobin 10.4 yesterday. Vital signs are stable. Blood pressure high. General: No acute distress. HEENT: Head exam is unremarkable. LUNGS: No audible rhonchi or wheezes. HEART: Rate and Rhythm are regular. ABDOMEN: Nontender. EXTREMITITES: No edema. Past Medical History Past Medical History: Coronary Artery Disease (CAD), Heart Failure, Diabetes Mellitus, Dialysis, Eye Disorder, GERD/Reflux, Hearing Disorder / Deafness, Hyperlipidemia, Hypertension, Memory Impairment, Renal Disease, Seizure Disorder Additional Past Medical History / Comment(s): Currently has R sided pleux cath, 2021 CABG since then has had recurrent bilateral pleural effusions, ESRD with dialysis on M/W/, NIDDM/diet only-has [place], past L eye retinal detachment/surgery, deaf L side History of Any Multi-Drug Resistant Organisms: None Reported Past Surgical History: Adenoidectomy, Heart Catheterization With Stent, Tonsillectomy Additional Past Surgical History / Comment(s): 6 vessel coronary bypass in 2021, bilateral cataract surgery, L eye surgery for detached retina, left arm hemodialysis AV fistula; right-sided Pleurx catheter placed 03/21/22, colonoscopy, cervical surgery/benign growth. Past Anesthesia/Blood Transfusion Reactions: Postoperative Nausea & Vomiting (PONV) Additional Past Anesthesia/Blood Transfusion Reaction / Comment(s): Pt has had blood transfusion long time ago/no reaction. Date of Last Stent Placement:: [address] [facility]. Smoking Status: Former smoker Past Alcohol Use History: None Reported Additional Past Alcohol Use History / Comment(s): Pt started smoking prior to teen years, quit 1999 Past Drug Use History: None Reported - Past Family History Daughter(s) Family Medical History: No Reported History Father Family Medical History: Cancer Additional Family Medical History / Comment(s): Lung cancer to bone cancer Mother Family Medical History: No Reported History Medications and Allergies Home Medications Medication Instructions Recorded Confirmed Type Calcium Acetate [PhosLo] 3 cap PO BID 03/11/22 06/13/22 History Clopidogrel [Plavix] 75 mg PO QAM 03/11/22 06/17/22 History Escitalopram [Lexapro] 20 mg PO HS 03/11/22 06/17/22 History Pantoprazole [Protonix] 40 mg PO QAM 03/11/22 06/13/22 History carvediloL [Coreg] 3.125 mg PO BID 03/11/22 06/13/22 History HYDROcodone/APAP 5-325MG [[place] 1 tab PO Q4HR PRN 04/03/22 06/17/22 History 5-325] Folic Acid-Vit B Complex-Vit C 1 cap PO QAM 05/04/22 06/13/22 History [Nephrocaps] Ipratropium-Albuterol Nebulize 3 ml INHALATION RT-QID PRN 05/04/22 06/13/22 History [Duoneb 0.5 mg-3 mg/3 ml Soln] Lidocaine 5% Patch [Lidoderm 5% 1 patch TOPICAL DAILY PRN 05/04/22 06/17/22 History Patch] hydrALAZINE HCL [Apresoline] 50 mg PO TID 30 Days #90 tab 05/09/22 06/13/22 Rx Aspirin 81 mg PO QAM 05/23/22 06/17/22 History Empagliflozin [Jardiance] 25 mg PO QAM 05/23/22 06/13/22 History Epoetin Unknown Dose 1 dose SQ MOWEFR 05/23/22 06/17/22 History Rosuvastatin Calcium [Crestor] 40 mg PO HS 05/23/22 06/17/22 History Torsemide [Demadex] 20 mg PO BID PRN 05/23/22 06/13/22 History amLODIPine [Norvasc] 10 mg PO QAM 05/23/22 06/13/22 History traMADol HCl [Ultram] 50 mg PO QID PRN 05/23/22 06/17/22 History Acetaminophen Tab [Tylenol] 650 mg PO Q4HR PRN tab 06/23/22 Rx Allergies Allergy/AdvReac Type Severity Reaction Status Date / Time cephalexin [From Keflex] Allergy Rash/Hives Verified 06/17/22 10:31 codeine Allergy Rash/Hives Verified 06/17/22 10:31 latex Allergy Rash/Hives Verified 06/17/22 10:31 atorvastatin AdvReac ACHES AND Verified 06/17/22 10:31 WEAKNESS lisinopril AdvReac DRY COUGH Verified 06/17/22 10:31 metoprolol AdvReac DRY COUGH Verified 06/17/22 10:31 Physical Exam Vitals: Vital Signs Temp Pulse Pulse Resp BP BP Pulse Ox 10/01/22 07:16 97.6 F 65 18 172/75 96 10/01/22 02:22 98.1 F 71 13 191/83 97 10/01/22 01:05 98.1 F 71 17 191/83 97 10/01/22 00:35 78 20 181/97 96 09/30/22 23:00 68 20 189/106 94 L 09/30/22 19:34 98.3 F 98 20 185/97 96 Intake and Output 09/30/22 10/01/22 10/01/22 22:59 06:59 14:59 Other: # Bowel Movements 3 Weight 90.718 kg 99.6 kg Results - Lab Results Most recent lab results Calcium 8.8 mg/dL (8.4-10.2) 09/30/22 20:13 Magnesium 2.2 mg/dL (1.6-2.3) 09/30/22 20:13 09/30/22 20:13 09/30/22 20:13 Assessment and Plan Plan: Assessment: 1. End-stage renal disease maintained on hemodialysis on Thursday schedule. 2. Nausea vomiting and diarrhea. Possibly gastroenteritis. Rule out GI bleed. 3. Acute on chronic diastolic CHF. 4. Hypertension with chronic kidney disease. 5. Chronic kidney disease mineral bone disease maintained on PhosLo. Plan: Hemodialysis today with goal 2 liters ultrafiltration. Check hemoglobin today. Check for C. diff. Home antihypertensives resumed. Add when necessary hydralazine. Stop jardiance as it is contraindicated in end-stage renal disease. Check phosphorus level. Thank you for the consultation. I will continue to follow this patient with you during his hospital stay.
[2022-10-01] MEDS ORDERED: PEG 3350 (236 GM/BTL) + LYTES 4,000 ML BOTTLE PO ONE (11:00)
[2022-10-01] MEDS ORDERED: PANTOPRAZOLE 40 MG TABLET PO SCH (11:00)
[2022-10-01] MEDS ORDERED: CALCIUM ACETATE 667 MG TAB PO SCH (11:00)
[2022-10-01] MEDS ORDERED: DAPAGLIFLOZIN PROPANEDIOL 10 MG TABLET PO SCH (11:00)
[2022-10-01 11:01] LABS: Anisocytosis Slight; Basophils % (A) 1 %; Eosinophils # (A) 0.2 k/uL (0-0.7); Eosinophils % (A) 3 %; HCT 30.9 % (39.0-53.0); HGB 9.8 gm/dL (13.0-17.5); Hypochromasia Slight; Lymphocytes # (A) 0.6 k/uL (1.0-4.8); Lymphocytes % (A) 9 %; MCH 31.1 pg (25.0-35.0); MCHC 31.7 g/dL (31.0-37.0); MCV 98.1 fL (80.0-100.0); Macrocytosis Slight; Mean Platelet Volume 9.6; Monocytes # (A) 0.6 k/uL (0-1.0); Monocytes % (A) 10 %; Neutrophils # (A) 4.4 k/uL (1.3-7.7); Neutrophils % (A) 75 %; Platelet Count 100 k/uL (150-450); RBC 3.15 m/uL (4.30-5.90); RDW 17.8 % (11.5-15.5); WBC 5.8 k/uL (3.8-10.6)
[2022-10-01] MEDS: FOLIC ACID-VIT B COMPLEX-VIT C 1 CAP PO SCH (11:52)
[2022-10-01] MEDS: PANTOPRAZOLE 40 MG/10 ML VIAL IVP SCH (11:53)
[2022-10-01 12:16] LABS: Glucose,Whole Blood 251 mg/dL (70-110)
--- NOTE | 2022-10-01 13:28 | P.GSCN ---
History of Present Illness Consult date: 10/01/22 History of present illness: CHIEF COMPLAINT: GI bleed HISTORY OF PRESENT ILLNESS: This is a 72-year-old male who presented to the hospital with weakness nausea and diarrhea. Patient reports that he has been having blood in the stools at home over the last 2 days. He denies any abdominal pain. He had 2 bloody bowel movements this morning. Hemoglobin on admission 10.4. Patient does have a known history of GI bleed due to the bleeding peptic ulcer about 5 years ago. He had an EGD at that time. Patient has never had a colonoscopy. Denies any history of hemorrhoids or diverticulosis. He does report decreased appetite. I'm he is on aspirin and Plavix at home with a known history of coronary artery disease with cardiac stents. Patient has end-stage renal disease on hemodialysis. Patient also admitted with fluid overlad. Patient scheduled for hemodialysis today. Has history of chronic anemia. PAST MEDICAL HISTORY: See below PAST SURGICAL HISTORY: See below MEDICATIONS: See below ALLERGIES: See below SOCIAL HISTORY: No illicit drug use. REVIEW OF SYSTEMS: CONSTITUTIONAL: Denies fever or chills. HEENT: Denies blurred vision, vision changes, or eye pain. Denies hemoptysis CARDIOVASCULAR: Denies chest pain or pressure. RESPIRATORY: No shortness of breath. GASTROINTESTINAL: See HPI for pertinent findings HEMATOLOGIC: Denies bleeding disorders. GENITOURINARY: Denies any blood in urine or increased urinary frequency. SKIN: Denies pruitis. Denies rash. PHYSICAL EXAM: VITAL SIGNS: Reviewed GENERAL: Well-developed in no acute distress. HEENT: No sclera icterus. Extraocular movements grossly intact. Moist buccal mucosa. Head is atraumatic, normocephalic. No nasal drainage. ABDOMEN: Soft. Nondistended. Nontender NEUROLOGIC: Alert and oriented. Cranial nerves II through XII grossly intact. LABORATORY DATA: WBC 5.8 Hgb 10.4 down to 9.8 plt 100 Sodium 137 potassium 4.3 creatinine 5.08 IMAGING: Chest x-ray cardiomegaly, pulmonary vascular congestion and bilateral pleural effusions. ASSESSMENT: 1. Acute GI bleed with bloody bowel movements 2. Anemia 3. History of peptic ulcer disease with bleeding 4. History of coronary disease with cardiac stents on Plavix and aspirin 5. Fluid overload receiving hemodialysis PLAN: -Patient scheduled for EGD and colonoscopy tomorrow with Dr. lopez -Start clear liquid diet today -Nothing by mouth after midnight -Start GoLYTELY bowel prep -Continue to monitor hemoglobin -Continue monitoring in signs or symptoms of bleeding -Change Protonix to IV -Hold aspirin and Plavix Physician Steel Spar Operator note has been reviewed by physician. Signing provider agrees with the documented findings, assessment, and plan of care. Past Medical History Past Medical History: Coronary Artery Disease (CAD), Heart Failure, Diabetes Mellitus, Dialysis, Eye Disorder, GERD/Reflux, Hearing Disorder / Deafness, Hyperlipidemia, Hypertension, Memory Impairment, Renal Disease, Seizure Disorder Additional Past Medical History / Comment(s): Currently has R sided pleux cath, 2021 CABG since then has had recurrent bilateral pleural effusions, ESRD with dialysis on //, NIDDM/diet only-has Moustapha, past L eye retinal det achment/surgery, deaf L side History of Any Multi-Drug Resistant Organisms: None Reported Past Surgical History: Adenoidectomy, Heart Catheterization With Stent, Tonsillectomy Additional Past Surgical History / Comment(s): 6 vessel coronary bypass in 2021, bilateral cataract surgery, L eye surgery for detached retina, left arm hemodialysis AV fistula; right-sided Pleurx catheter placed 03/21/22, colonoscopy, cervical surgery/benign growth. Past Anesthesia/Blood Transfusion Reactions: Postoperative Nausea & Vomiting (PONV) Additional Past Anesthesia/Blood Transfusion Reaction / Comm: Pt has had blood transfusion long time ago/no reaction. Date of Last Stent Placement:: 1999 at [facility]. Smoking Status: Former smoker Past Alcohol Use History: None Reported Additional Past Alcohol Use History / Comment(s): Pt started smoking prior to teen years, quit 1999 Past Drug Use History: None Reported - Past Family History Daughter(s) Family Medical History: No Reported History Father Family Medical History: Cancer Additional Family Medical History / Comment(s): Lung cancer to bone cancer Mother Family Medical History: No Reported History Medications and Allergies Home Medications Medication Instructions Recorded Confirmed Type Calcium Acetate [PhosLo] 667 mg PO QID 03/11/22 10/01/22 History Clopidogrel [Plavix] 75 mg PO QAM 03/11/22 10/01/22 History Escitalopram [Lexapro] 20 mg PO HS 03/11/22 10/01/22 History Pantoprazole [Protonix] 40 mg PO BID 03/11/22 10/01/22 History carvediloL [Coreg] 3.125 mg PO BID 03/11/22 10/01/22 History Ipratropium-Albuterol Nebulize 3 ml INHALATION RT-QID PRN 05/04/22 10/01/22 History [Duoneb 0.5 mg-3 mg/3 ml Soln] hydrALAZINE HCL [Apresoline] 50 mg PO TID 30 Days #90 tab 05/09/22 10/01/22 Rx Aspirin 81 mg PO QAM 05/23/22 10/01/22 History Empagliflozin [Jardiance] 25 mg PO QAM 05/23/22 10/01/22 History Rosuvastatin Calcium [Crestor] 40 mg PO HS 05/23/22 10/01/22 History Torsemide [Demadex] 20 mg PO BID PRN 05/23/22 10/01/22 History Albuterol Nebulized [Ventolin 2.5 mg INHALATION RT-TID 10/01/22 10/01/22 History Nebulized] Albuterol Sulfate [Albuterol 2 puff PO RT-Q4H PRN 10/01/22 10/01/22 History Sulfate Hfa] Lansoprazole 30 mg PO DAILY 10/01/22 10/01/22 History Loratadine [Claritin] 10 mg PO DAILY 10/01/22 10/01/22 History Methoxy Peg-Epoetin Beta [Mircera] 150 mcg SQ Q14D 10/01/22 10/01/22 History Montelukast [Singulair] 10 mg PO HS 10/01/22 10/01/22 History Vit B Comp No.3/Folic/C/Biotin 1 tab PO DAILY 10/01/22 10/01/22 History [Brenda-Blanche Rx Tablet] Allergies Allergy/AdvReac Type Severity Reaction Status Date / Time cephalexin [From Keflex] Allergy Rash/Hives Verified 10/01/22 10:43 codeine Allergy Rash/Hives Verified 10/01/22 10:43 latex Allergy Rash/Hives Verified 10/01/22 10:43 atorvastatin AdvReac ACHES AND Verified 10/01/22 10:43 WEAKNESS lisinopril AdvReac DRY COUGH Verified 10/01/22 10:43 metoprolol AdvReac DRY COUGH Verified 10/01/22 10:43 Surgical - Exam Vital Signs Temp Pulse Resp BP Pulse Ox 98.3 F 98 20 185/97 96 09/30/22 19:34 09/30/22 19:34 09/30/22 19:34 09/30/22 19:34 09/30/22 19:34 Results - Labs 10/01/22 10:37 09/30/22 20:13 Abnormal Lab Results - Last 24 Hours (Table) 09/30/22 09/30/22 09/30/22 Range/Units 20:13 20:13 21:08 RBC 3.28 L (4.30-5.90) m/uL Hgb 10.4 L (13.0-17.5) gm/dL Hct 31.6 L (39.0-53.0) % RDW 17.5 H (11.5-15.5) % Plt Count 91 L (150-450) k/uL Lymphocytes # 0.6 L (1.0-4.8) k/uL PT 12.5 H (9.0-12.0) sec INR 1.2 H (<1.2) Chloride 94 L (98-107) mmol/L BUN 48 H (9-20) mg/dL Creatinine 5.08 H (0.66-1.25) mg/dL Glucose 137 H (74-99) mg/dL POC Glucose (mg/dL) (70-110) mg/dL Alkaline Phosphatase 183 H (38-126) U/L 10/01/22 10/01/22 Range/Units 00:59 07:15 RBC (4.30-5.90) m/uL Hgb (13.0-17.5) gm/dL Hct (39.0-53.0) % RDW (11.5-15.5) % Plt Count (150-450) k/uL Lymphocytes # (1.0-4.8) k/uL PT (9.0-12.0) sec INR (<1.2) Chloride (98-107) mmol/L BUN (9-20) mg/dL Creatinine (0.66-1.25) mg/dL Glucose (74-99) mg/dL POC Glucose (mg/dL) 127 H 158 H (70-110) mg/dL Alkaline Phosphatase (38-126) U/L Diabetes panel 09/30/22 Range/Units 20:13 Sodium 137 (137-145) mmol/L Potassium 4.3 (3.5-5.1) mmol/L Chloride 94 L (98-107) mmol/L Carbon Dioxide 27 (22-30) mmol/L BUN 48 H (9-20) mg/dL Creatinine 5.08 H (0.66-1.25) mg/dL Glucose 137 H (74-99) mg/dL Calcium 8.8 (8.4-10.2) mg/dL AST 28 (17-59) U/L ALT 16 (4-49) U/L Alkaline Phosphatase 183 H (38-126) U/L Total Protein 7.3 (6.3-8.2) g/dL Albumin 3.7 (3.5-5.0) g/dL Calcium panel 09/30/22 Range/Units 20:13 Calcium 8.8 (8.4-10.2) mg/dL Albumin 3.7 (3.5-5.0) g/dL Pituitary panel 09/30/22 Range/Units 20:13 Sodium 137 (137-145) mmol/L Potassium 4.3 (3.5-5.1) mmol/L Chloride 94 L (98-107) mmol/L Carbon Dioxide 27 (22-30) mmol/L BUN 48 H (9-20) mg/dL Creatinine 5.08 H (0.66-1.25) mg/dL Glucose 137 H (74-99) mg/dL Calcium 8.8 (8.4-10.2) mg/dL Adrenal panel 09/30/22 Range/Units 20:13 Sodium 137 (137-145) mmol/L Potassium 4.3 (3.5-5.1) mmol/L Chloride 94 L (98-107) mmol/L Carbon Dioxide 27 (22-30) mmol/L BUN 48 H (9-20) mg/dL Creatinine 5.08 H (0.66-1.25) mg/dL Glucose 137 H (74-99) mg/dL Calcium 8.8 (8.4-10.2) mg/dL Total Bilirubin 1.2 (0.2-1.3) mg/dL AST 28 (17-59) U/L ALT 16 (4-49) U/L Alkaline Phosphatase 183 H (38-126) U/L Total Protein 7.3 (6.3-8.2) g/dL Albumin 3.7 (3.5-5.0) g/dL
[2022-10-01 17:15] LABS: Glucose,Whole Blood 125 mg/dL (70-110)
[2022-10-01] MEDS: hydrALAZINE HCL 50 MG TAB PO SCH ×2 (18:33→21:05)
[2022-10-01] MEDS: CALCIUM ACETATE 667 MG TAB PO SCH ×2 (18:33→21:04)
[2022-10-01 20:10] LABS: Glucose,Whole Blood 172 mg/dL (70-110)
[2022-10-01] MEDS: ESCITALOPRAM 20 MG TAB PO SCH (21:04)
[2022-10-01] MEDS: NON FORMULARY DRUG (Rosuvastatin Calcium [Crestor] 40 MG Tablet) PO SCH (21:05)
[2022-10-02 03:21] LABS: Hepatitis B Surface AB- Quant 3.5 mIU/mL; Hepatitis B Surface Antigen Nonreactive
[2022-10-02] MEDS: CALCIUM ACETATE 667 MG TAB PO SCH ×4 (07:22→21:18)
[2022-10-02] MEDS: FOLIC ACID-VIT B COMPLEX-VIT C 1 CAP PO SCH (07:23)
[2022-10-02] MEDS: hydrALAZINE HCL 50 MG TAB PO SCH ×3 (07:23→21:18)
[2022-10-02] MEDS: PANTOPRAZOLE 40 MG/10 ML VIAL IVP SCH (09:27)
--- NOTE | 2022-10-02 10:42 | P.PN ---
Subjective Progress Note Date: 10/02/22 CHIEF COMPLAINT: GI bleed HISTORY OF PRESENT ILLNESS: Patient reports no further bloody bowel movements t hat he is aware of. He completed the bowel prep. Stools are clear. Denies abdominal pain. Afebrile. BP elevated. HR 79 labs pending. HGB 9.8 yesterday PHYSICAL EXAM: VITAL SIGNS: Reviewed. GENERAL: Well-developed in no acute distress. ABDOMEN: Soft. Nondistended. Nontender. NEUROLOGIC: Alert and oriented. Cranial nerves II through XII grossly intact. ASSESSMENT: 1. Acute GI bleed with bloody bowel movements 2. Anemia 3. History of peptic ulcer disease with bleeding 4. History of coronary disease with cardiac stents on Plavix and aspirin 5. Fluid overload received hemodialysis PLAN: -Patient scheduled for EGD and colonoscopy today -Continue Protonix -Continue to hold aspirin and Plavix Physician Digital Composer note has been reviewed by physician. Signing provider agrees with the documented findings, assessment, and plan of care. Objective - Vital Signs Vital signs: Vital Signs Temp 97.6 F 10/02/22 07:20 Pulse 79 10/02/22 07:20 Resp 16 10/02/22 07:20 BP 179/71 10/02/22 07:20 Pulse Ox 95 10/02/22 07:20 FiO2 Intake & Output 10/01/22 10/02/22 10/02/22 18:59 06:59 18:59 Intake Total 300 Output Total 3300 Balance -3000 Weight 98 kg Intake: Hemodialysis 300 Output: Hemodialysis 3300 Other: # Bowel Movements 1 2 - Labs CBC & Chem 7: 10/01/22 10:37 09/30/22 20:13 Labs: Abnormal Lab Results - Last 24 Hours (Table) 10/01/22 10/01/22 10/01/22 Range/Units 10:37 12:15 17:14 RBC 3.15 L (4.30-5.90) m/uL Hgb 9.8 L (13.0-17.5) gm/dL Hct 30.9 L (39.0-53.0) % RDW 17.8 H (11.5-15.5) % Plt Count 100 L (150-450) k/uL Lymphocytes # 0.6 L (1.0-4.8) k/uL POC Glucose (mg/dL) 251 H 125 H (70-110) mg/dL 10/01/22 Range/Units 20:08 RBC (4.30-5.90) m/uL Hgb (13.0-17.5) gm/dL Hct (39.0-53.0) % RDW (11.5-15.5) % Plt Count (150-450) k/uL Lymphocytes # (1.0-4.8) k/uL POC Glucose (mg/dL) 172 H (70-110) mg/dL
[2022-10-02 10:50] LABS: Basophils # (A) 0.06 X 10*3/uL (0.00-0.10); Eosinophils # (A) 0.21 X 10*3/uL (0.04-0.35); Eosinophils % (A) 3.5 %; HCT 30.2 % (39.6-50.0); HGB 9.4 d/dL (13.0-17.0); Lymphocytes # (A) 0.77 X 10*3/uL (0.90-5.00); Lymphocytes % (A) 12.8 %; MCH 29.7 pg (27.0-32.0); MCHC 31.1 d/dL (32.0-37.0); MCV 95.3 FL (80.0-97.0); Mean Platelet Volume 11.1 FL (9.5-12.2); Monocytes % (A) 13.3 %; NRBC Per 100 WBC 0 X 10*3/uL (0.00-0.01); Neutrophils # (A) 4.17 X 10*3/uL (1.80-7.70); Neutrophils % (A) 69.2 %; Platelet Count 119 X 10*3/uL (140-440); RBC 3.17 X 10*6/uL (4.40-5.60); WBC 6.02 X 10*3/uL (4.50-10.00)
[2022-10-02] MEDS ORDERED: PROPOFOL 10 MG/ML 20 ML VIAL IV ONE (10:58)
[2022-10-02] MEDS ORDERED: ePHEDrine 50 MG/ML 1 ML VIAL ONE (10:58)
[2022-10-02] MEDS ORDERED: LIDOCAINE 2% INJ 20 MG/ML (2 ML VIAL) ONE (10:58)
[2022-10-02] MEDS ORDERED: SUCCINYLCHOLINE CHLORIDE 200 MG/10 ML VIAL IV ONE (10:58)
[2022-10-02] MEDS ORDERED: SODIUM CHLORIDE 0.9% 500 ML 500 ML IV ONE (11:01)
[2022-10-02 11:04] LABS: ALT 11 U/L (10-49); AST 24 U/L (14-35); Albumin 3.7 d/dL (3.8-4.9); Albumin/Globulin Ratio 1.12 Ratio (1.60-3.17); Alkaline Phosphatase 158 U/L (41-126); BUN/Creat Ratio 6.43 Ratio (12.00-20.00); Blood Urea Nitrogen 29.6 mg/dL (9.0-27.0); Calcium 9.3 mg/dL (8.7-10.3); Carbon Dioxide 26.3 mmol/L (21.6-31.8); Chloride 96 mmol/L (96-109); Globulin 3.3 d/dL (1.6-3.3); Glucose 122 mg/dL (70-110); Potassium 3.8 mmol/L (3.5-5.5); Sodium 136 mmol/L (135-145); Total Bilirubin 0.9 mg/dL (0.3-1.2)
--- NOTE | 2022-10-02 11:30 | P.OP ---
Date of Procedure: 10/02/22 Preoperative Diagnosis: GI bleed Postoperative Diagnosis: GI bleed Procedure(s) Performed: Aborted EGD Anesthesia: MICHEL CARLISLE Surgeon: Mu Berman Pathology: none sent Condition: stable Disposition: ICU Description of Procedure: The patient's placed on the endoscopy table in the lateral position. He r eceived IV sedation. The patient had the gastric scope placed level of the cervical esophagus. The patient had some gagging if she is. The scope was withdrawn. Patient received more anesthesia. At this point he had respiratory failure. Anesthesia then intubated the patient. The procedure was canceled. Patient was sent to recoveryintubated.Discussed these findings with the patient's daughter.
[2022-10-02] MEDS ORDERED: ALBUTEROL NEBULIZED 2.5 MG/3 ML INHALATION ONE (11:33)
--- NOTE | 2022-10-02 12:14 | XR ---
EXAMINATION TYPE: XR chest 1V portable DATE OF EXAM: 10/02/2022 12:06 PM COMPARISON: Chest radiographs from 09/30/2022 TECHNIQUE: XR chest 1V portable Portable AP radiograph of the chest. CLINICAL INDICATION:Male, 72 years old with history of difficulty breathing; FINDINGS: Lungs/Pleura: Blunting of both costophrenic angles. Bibasilar patchy airspace opacities redemonstrate d. No pneumothorax. Pulmonary vascularity: Pulmonary vascular congestion. Heart/mediastinum: Cardiomediastinal silhouette is enlarged and stable. Atherosclerotic calcificatio ns are seen in the aorta. Musculoskeletal: No acute osseous pathology. Midline sternotomy wires are noted and stable. IMPRESSION: Overall stable examination with findings of small bilateral pleural effusions with pulmonary vascular congestion and cardiomegaly consistent with CHF exacerbation.
--- NOTE | 2022-10-02 12:49 | P.PN ---
Subjective Patient is seen in follow-up for end-stage renal disease. He is maintained on hemodialysis on Thursday schedule. No problems with dialysis yesterday. Had multiple episodes of diarrhea last night. Feels weak. Vital signs are stable. General: No acute distress. HEENT: Head exam is unremarkable. LUNGS: No audible rhonchi or wheezes. HEART: Rate and Rhythm are regular. ABDOMEN: Nontender. EXTREMITITES: No edema. Objective - Vital Signs Vital signs: Vital Signs Temp 97.0 F L 10/02/22 11:29 Pulse 74 10/02/22 12:14 Resp 16 10/02/22 12:14 BP 178/83 10/02/22 12:14 Pulse Ox 96 10/02/22 12:14 FiO2 Intake & Output 10/01/22 10/02/22 10/02/22 18:59 06:59 18:59 Intake Total 300 250 Output Total 3300 Balance -3000 250 Weight 98 kg Intake: IV 250 Hemodialysis 300 Output: Hemodialysis 3300 Other: # Bowel Movements 1 2 - Labs CBC & Chem 7: 10/02/22 06:37 10/02/22 06:37 Labs: Abnormal Lab Results - Last 24 Hours (Table) 10/01/22 10/01/22 10/02/22 Range/Units 17:14 20:08 06:37 RBC 3.17 L (4.40-5.60) X 10*6/uL Hgb 9.4 L (13.0-17.0) d/dL Hct 30.2 L (39.6-50.0) % MCHC 31.1 L (32.0-37.0) d/dL RDW 18.0 H (11.5-14.5) % Plt Count 119 L (140-440) X 10*3/uL Lymphocytes # 0.77 L (0.90-5.00) X 10*3/uL Anion Gap (4.00-12.00) mmol/L BUN (9.0-27.0) mg/dL Creatinine (0.6-1.5) mg/dL Est GFR (CKD-EPI) (>=60) BUN/Creatinine Ratio (12.00-20.00) Ratio Glucose (70-110) mg/dL POC Glucose (mg/dL) 125 H 172 H (70-110) mg/dL Alkaline Phosphatase (41-126) U/L Albumin (3.8-4.9) d/dL Albumin/Globulin Ratio (1.60-3.17) Ratio 10/02/22 Range/Units 06:37 RBC (4.40-5.60) X 10*6/uL Hgb (13.0-17.0) d/dL Hct (39.6-50.0) % MCHC (32.0-37.0) d/dL RDW (11.5-14.5) % Plt Count (140-440) X 10*3/uL Lymphocytes # (0.90-5.00) X 10*3/uL Anion Gap 13.70 H (4.00-12.00) mmol/L BUN 29.6 H (9.0-27.0) mg/dL Creatinine 4.6 H (0.6-1.5) mg/dL Est GFR (CKD-EPI) 13 L (>=60) BUN/Creatinine Ratio 6.43 L (12.00-20.00) Ratio Glucose 122 H (70-110) mg/dL POC Glucose (mg/dL) (70-110) mg/dL Alkaline Phosphatase 158 H (41-126) U/L Albumin 3.7 L (3.8-4.9) d/dL Albumin/Globulin Ratio 1.12 L (1.60-3.17) Ratio Assessment and Plan Plan: Assessment: 1. End-stage renal disease maintained on hemodialysis on Thursday schedule. 2. Nausea vomiting and diarrhea. Possibly gastroenteritis. C. diff negative. Rule out GI bleed. Scheduled for EGD and colonoscopy today. 3. Acute on chronic diastolic CHF. 4. Hypertension with chronic kidney disease. 5. Chronic kidney disease mineral bone disease maintained on PhosLo. Phosphorus level 4.4 dated 10/01/2022. 6. Anemia of chronic kidney disease. Plan: Hemodialysis tomorrow. Resume home dose Coreg. Maintain when necessary hydralazine. Stopped jardiance as it is contraindicated in end-stage renal disease. Check iron studies.
[2022-10-02 13:23] LABS: Glucose,Whole Blood 174 mg/dL (70-110)
[2022-10-02] MEDS ORDERED: hydrALAZINE HCL 20 MG/ML 1 ML VIAL IVP ONE (13:54)
--- NOTE | 2022-10-02 14:31 | P.CNPUL ---
History of Present Illness Consult date: 10/02/22 Requesting physician: Mu Berman Reason for consult: other (ICU management) Chief complaint: Generalized weakness, GI bleed History of present illness: This is a pleasant 72-year-old male patient with a history of hyperlipidemia, peripheral vascular disease, diabetes mellitus, chronic anemia on Procrit, coronary artery disease with previous coronary artery bypass grafting in 2020, end-stage renal disease on hemodialysis Thursday, asbestos- induced pleural plaque with previous VATS procedure and biopsies that were negative for malignancy or mesothelioma. He has chronic hypoxemic respiratory failure and follows in our office for the same. He was admitted on 09/30/2022 with complaints of generalized weakness and fatigue. He was scheduled for EGD today 10/02/2022 and during the procedure he was coughing and gagging and received more sedation. Following that he required intubation and was transferred to phase I recovery. The initial plan was for him to go to the intensive care unit. Upon consultation the patient is awake and alert and maintaining O2 saturations up to 100% on 3 L nasal cannula. He is hemodynamically stable. Denies any shortness of breath, cough or congestion. Chest x-ray reveals small bilateral pleural effusions with pulmonary vascular c ongestion. Some chronicity. White count 6.0. Hemoglobin 9.4. Platelets 119. Sodium 136. Potassium 3.8. I can't 26. BUN 30. Creatinine 4.6. Glucose 122. C. diff was negative. Review of Systems REVIEW OF SYSTEMS: CONSTITUTIONAL: Positive for generalized weakness, fatigue. Denies any recent significant weight loss or weight gain. EYES: Denies change in vision. EARS, NOSE, MOUTH, THROAT: Denies headaches, denies sore throat. CARDIOVASCULAR: Denies chest pain, palpitations or syncopal episodes. RESPIRATORY: Denies shortness of breath, cough, congestion or hemoptysis. GASTROINTESTINAL: Denies change in appetite, denies abdominal pain GENITOURINARY: Denies hematuria, denies infections. MUSKULOSKELETAL: Denies pain, denies swelling. INTEGUMENTARY: Denies rash, denies eczema. NEUROLOGICAL: Denies recent memory loss, no recent seizure activity. PSYCHIATRIC: Denies anxiety, denies depression. HEMATOLOGIC/LYMPHATIC: Positive for chronic anemia, denies enlarged lymph nodes. Past Medical History Past Medical History: Coronary Artery Disease (CAD), Heart Failure, Diabetes Mellitus, Dialysis, Eye Disorder, GERD/Reflux, Hearing Disorder / Deafness, Hyperlipidemia, Hypertension, Memory Impairment, Renal Disease, Seizure Disorder Additional Past Medical History / Comment(s): Currently has R sided pleux cath, 2021 CABG since then has had recurrent bilateral pleural effusions, ESRD with dialysis on M/W/F, NIDDM/diet only-has Moustapha, past L eye retinal detachment/surgery, deaf L side History of Any Multi-Drug Resistant Organisms: None Reported Past Surgical History: Adenoidectomy, Heart Catheterization With Stent, Tonsillectomy Additional Past Surgical History / Comment(s): 6 vessel coronary bypass in 2021, bilateral cataract surgery, L eye surgery for detached retina, left arm hemodialysis AV fistula; right-sided Pleurx catheter placed 03/21/22, colonoscopy, cervical surgery/benign growth. Past Anesthesia/Blood Transfusion Reactions: Postoperative Nausea & Vomiting (PONV) Additional Past Anesthesia/Blood Transfusion Reaction / Comment(s): Pt has had blood transfusion long time ago/no reaction. Date of Last Stent Placement:: [address] [facility]. Smoking Status: Former smoker Past Alcohol Use History: None Reported Additional Past Alcohol Use History / Comment(s): Pt started smoking prior to teen years, quit 1999 Past Drug Use History: None Reported - Past Family History Daughter(s) Family Medical History: No Reported History Father Family Medical History: Cancer Additional Family Medical History / Comment(s): Lung cancer to bone cancer Mother Family Medical History: No Reported History Medications and Allergies Home Medications Medication Instructions Recorded Confirmed Type Calcium Acetate [PhosLo] 667 mg PO QID 03/11/22 10/01/22 History Clopidogrel [Plavix] 75 mg PO QAM 03/11/22 10/01/22 History Escitalopram [Lexapro] 20 mg PO HS 03/11/22 10/01/22 History Pantoprazole [Protonix] 40 mg PO BID 03/11/22 10/01/22 History carvediloL [Coreg] 3.125 mg PO BID 03/11/22 10/01/22 History Ipratropium-Albuterol Nebulize 3 ml INHALATION RT-QID PRN 05/04/22 10/01/22 History [Duoneb 0.5 mg-3 mg/3 ml Soln] hydrALAZINE HCL [Apresoline] 50 mg PO TID 30 Days #90 tab 05/09/22 10/01/22 Rx Aspirin 81 mg PO QAM 05/23/22 10/01/22 History Empagliflozin [Jardiance] 25 mg PO QAM 05/23/22 10/01/22 History Rosuvastatin Calcium [Crestor] 40 mg PO HS 05/23/22 10/01/22 History Torsemide [Demadex] 20 mg PO BID PRN 05/23/22 10/01/22 History Albuterol Nebulized [Ventolin 2.5 mg INHALATION RT-TID 10/01/22 10/01/22 History Nebulized] Albuterol Sulfate [Albuterol 2 puff PO RT-Q4H PRN 10/01/22 10/01/22 History Sulfate Hfa] Lansoprazole 30 mg PO DAILY 10/01/22 10/01/22 History Loratadine [Claritin] 10 mg PO DAILY 10/01/22 10/01/22 History Methoxy Peg-Epoetin Beta [Mircera] 150 mcg SQ Q14D 10/01/22 10/01/22 History Montelukast [Singulair] 10 mg PO HS 10/01/22 10/01/22 History Vit B Comp No.3/Folic/C/Biotin 1 tab PO DAILY 10/01/22 10/01/22 History [Brenda-Blanche Rx Tablet] Allergies Allergy/AdvReac Type Severity Reaction Status Date / Time cephalexin [From Keflex] Allergy Rash/Hives Verified 10/01/22 10:43 codeine Allergy Rash/Hives Verified 10/01/22 10:43 latex Allergy Rash/Hives Verified 10/01/22 10:43 atorvastatin AdvReac ACHES AND Verified 10/01/22 10:43 WEAKNESS lisinopril AdvReac DRY COUGH Verified 10/01/22 10:43 metoprolol AdvReac DRY COUGH Verified 10/01/22 10:43 Physical Exam Vitals: Vital Signs Temp Pulse Pulse Pulse Resp BP Pulse Ox 10/02/22 14:00 76 16 171/80 100 10/02/22 13:45 75 16 201/88 99 10/02/22 13:15 74 16 177/83 97 10/02/22 13:00 76 16 175/81 94 L 10/02/22 12:45 76 16 178/82 95 10/02/22 12:30 74 16 178/83 95 10/02/22 12:14 74 16 178/83 96 10/02/22 11:59 76 16 185/81 97 10/02/22 11:44 81 18 176/77 100 10/02/22 11:29 97.0 F L 87 18 170/81 100 10/02/22 10:48 95 10/02/22 07:20 97.6 F 79 16 179/71 95 10/02/22 01:24 98.2 F 68 16 157/68 96 10/01/22 19:00 97.6 F 72 18 173/74 92 L 10/01/22 18:40 98.0 F 68 19 157/66 Intake and Output 10/01/22 10/02/22 10/02/22 22:59 06:59 14:59 Intake Total 300 350 Output Total 3300 Balance -3000 350 Intake: IV 350 Hemodialysis 300 Output: Hemodialysis 3300 Other: # Bowel Movements 1 2 Weight 98 kg GENERAL EXAM: Alert, pleasant 72-year-old male, on 3 L nasal cannula, comfortable in no apparent distress. HEAD: Normocephalic. EYES: Normal reaction of pupils, equal size. NOSE: Clear with pink turbinates. THROAT: No erythema or exudates. NECK: No masses, no JVD. CHEST: No chest wall deformity. LUNGS: Equal air entry with no crackles, wheeze, rhonchi or dullness. CVS: S1 and S2 normal with no audible murmur, regular rhythm. ABDOMEN: No hepatosplenomegaly, normal bowel sounds, no guarding or rigidity. SPINE: No scoliosis or deformity SKIN: No rashes CENTRAL NERVOUS SYSTEM: No focal deficits, tone is normal in all 4 extremities. EXTREMITIES: There is no peripheral edema. No clubbing, no cyanosis. Peripheral pulses are intact. Results - Laboratory Findings CBC and BMP: 10/02/22 06:37 10/02/22 06:37 PT/INR, D-dimer PT 12.5 sec (9.0-12.0) H 09/30/22 21:08 INR 1.2 (<1.2) H 09/30/22 21:08 Abnormal lab findings: Abnormal Labs 09/30/22 09/30/22 09/30/22 20:13 20:13 21:08 RBC 3.28 L Hgb 10.4 L Hct 31.6 L MCHC RDW 17.5 H Plt Count 91 L Lymphocytes # 0.6 L PT 12.5 H INR 1.2 H Chloride 94 L Anion Gap BUN 48 H Creatinine 5.08 H Est GFR (CKD-EPI) BUN/Creatinine Ratio Glucose 137 H POC Glucose (mg/dL) Alkaline Phosphatase 183 H Albumin Albumin/Globulin Ratio 10/01/22 10/01/22 10/01/22 00:59 07:15 10:37 RBC 3.15 L Hgb 9.8 L Hct 30.9 L MCHC RDW 17.8 H Plt Count 100 L Lymphocytes # 0.6 L PT INR Chloride Anion Gap BUN Creatinine Est GFR (CKD-EPI) BUN/Creatinine Ratio Glucose POC Glucose (mg/dL) 127 H 158 H Alkaline Phosphatase Albumin Albumin/Globulin Ratio 10/01/22 10/01/22 10/01/22 12:15 17:14 20:08 RBC Hgb Hct MCHC RDW Plt Count Lymphocytes # PT INR Chloride Anion Gap BUN Creatinine Est GFR (CKD-EPI) BUN/Creatinine Ratio Glucose POC Glucose (mg/dL) 251 H 125 H 172 H Alkaline Phosphatase Albumin Albumin/Globulin Ratio 10/02/22 10/02/22 10/02/22 06:37 06:37 13:21 RBC 3.17 L Hgb 9.4 L Hct 30.2 L MCHC 31.1 L RDW 18.0 H Plt Count 119 L Lymphocytes # 0.77 L PT INR Chloride Anion Gap 13.70 H BUN 29.6 H Creatinine 4.6 H Est GFR (CKD-EPI) 13 L BUN/Creatinine Ratio 6.43 L Glucose 122 H POC Glucose (mg/dL) 174 H Alkaline Phosphatase 158 H Albumin 3.7 L Albumin/Globulin Ratio 1.12 L - Diagnostic Findings Chest x-ray: image reviewed Assessment and Plan Assessment: Acute hypoxic respiratory failure secondary to sedation during EGD procedure requiring temporary intubation, recovered on 3 L nasal cannula Generalized weakness and fatigue secondary to anemia History of chronic anemia on Procrit Chronic hypoxemic respiratory failure on home oxygen History of chronic loculated right-sided pleural effusion and pleural thickening status post VATS procedure that was negative for malignancy or mesothelioma History of asbestos exposure End-stage renal disease on hemodialysis 3 days a week History of coronary disease status post coronary bypass grafting 2020 Diabetes mellitus Peripheral vascular disease Hyperlipidemia Plan: The patient was seen and evaluated Chest x-ray, labs and medications reviewed Patient is currently stable, not needing ICU placement He'll be transferred back to his regular medical floor Titrate the FiO2 as tolerated We will continue to follow and make further recommendations based on his clinical status I have personally seen and examined the patient, performed the documentation and the assessment and plan as written. Number of minutes spent on the visit: 20.
[2022-10-02 15:22] LABS: INR 1.11 sec (0.93-1.11); Prothrombin Time 12.5 sec (9.9-11.9)
[2022-10-02 15:56] LABS: % Iron Saturation 18.06 (15.00-50.00)
[2022-10-02 17:19] LABS: Glucose,Whole Blood 206 mg/dL (70-110)
[2022-10-02] MEDS ORDERED: carvediloL 3.125 MG TAB PO SCH (17:30)
[2022-10-02] MEDS: methylPREDNISolone SOD SUCCI 40 MG/ML 1 ML VIAL IV SCH ×2 (18:06→23:41)
[2022-10-02 20:16] LABS: Glucose,Whole Blood 235 mg/dL (70-110)
[2022-10-02] MEDS: BUDESONIDE 0.5 MG/2 ML NEBU INHALATION SCH ×2 (20:57→21:38)
[2022-10-02] MEDS: IPRATROPIUM-ALBUTEROL 3 ML NEB INHALATION SCH ×2 (20:57→21:38)
[2022-10-02] MEDS: ESCITALOPRAM 20 MG TAB PO SCH (21:18)
[2022-10-02] MEDS ORDERED: ZOLPIDEM 5 MG TAB PO PRN (21:30)
[2022-10-02] MEDS: NON FORMULARY DRUG (Rosuvastatin Calcium [Crestor] 40 MG Tablet) PO SCH (21:47)
--- NOTE | 2022-10-02 23:29 | HP ---
HISTORY AND PHYSICAL HISTORY OF PRESENT ILLNESS: The patient came to emergency room for altered mental status, GI bleed. Surgical consult is pending. Chronic anemia, coronary artery disease. He had a VATS procedure with advanced pleural plaque disease while negative for mesothelioma. He has hypoxemic respiratory failure, currently on 3 L oxygen. He is more confused. Chest x-ray, small bilateral pleural effusions. BUN is 30, creatinine 4.6, glucose 122. C. diff is negative. He is fatigued, somnolent, confused at times. Memory is severely poor. Weakness as mentioned above. Shortness of breath chronic. PAST MEDICAL HISTORY: Coronary artery disease, diabetes mellitus, end-stage renal disease, GERD, dyslipidemia, hypertension, renal impairment, seizure disorder, memory loss. PAST SURGICAL HISTORY: Adenoidectomy, heart catheterization, stent, and tonsillectomy. FAMILY HISTORY: Daughter negative. Father, lung cancer. Mother, negative. MEDICATIONS: Reviewed. ALLERGIES: Reviewed. PHYSICAL EXAMINATION: VITAL SIGNS: Temperature 98, pulse 70s to 80s, respiratory rate 70 to 86, respiratory rate 16 to 18, blood pressure 150s to 170s over 80s, high of 200 systolic. GENERAL: He is pleasantly confused, appropriate speech. Pupils equal, round, reactive. LUNGS: Decreased breath sounds. Wheezes x4. HEART: S1, S2. ABDOMEN: Soft. SKIN: No rashes. 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 LABORATORY DATA: Hemoglobin is 9.4, white count 6.0, BUN is 29, creatinine 4.6. ASSESSMENT: As mentioned above, hypoxemic respiratory failure, fatigue and weakness due to anemia, chronic anemia on Procrit, chronic hypoxemic respiratory failure, loculated pleural fluid status post VATS. History of asbestos exposure, history of renal disease, history of bypass, diabetes mellitus, peripheral vascular disease, dyslipidemia. Please see further orders. Prognosis guarded. MMODL / IJN: [id number] /
--- NOTE | 2022-10-03 01:47 | PN ---
PROGRESS NOTE SUBJECTIVE: The patient went up for EGD, colonoscopy today, had difficulty, where he was intubated and had respiratory failure He was extubated immediately and is doing well now. He wants to continue to fight, does not want code, status is he wants to be DNR, but he says he did not want to give up going to hospice comfort care at this point. Long discussion with the family and him in the room together. Hemoglobin last one was 9.4, white count 6.02, platelets 119. Sodium 136, potassium 3.8, BUN is 29, creatinine 4.6. Sugars mid 100. Iron levels 41. Plan is to restart home medicines that he did not take before. C. diff was negative. OBJECTIVE: CARDIOVASCULAR: S1, S2. LUNGS: Transmitted upper sounds. HEMATOLOGY: Negative Homans. VITAL SIGNS: Temperature 98, pulse 70s to 80s, respiratory rate 16 to 18, blood pressure 170s over 78, oxygen saturation 95% on 3 L. PLAN: Increase his blood pressure medicines. He will use his breathing treatments. Remains on carvedilol 3.125 b.i.d., Lexapro for depression, p.r.n. hydralazine, possibly increase beta blockers. Start him on IV steroids and updrafts Protonix for GI upset, Crestor for cholesterol, Ambien for sleep. Prognosis guarded. Get a CAT scan of chest etc. and check hemoglobin and hematocrit in the morning to see how he does. No comfort care or hospice at this time. MMODL / IJN: [id number] /
[2022-10-03 07:23] LABS: Glucose,Whole Blood 258 mg/dL (70-110)
[2022-10-03] MEDS: methylPREDNISolone SOD SUCCI 40 MG/ML 1 ML VIAL IV SCH ×2 (07:59→17:03)
[2022-10-03] MEDS: carvediloL 6.25 MG TAB PO SCH ×2 (07:59→17:02)
[2022-10-03] MEDS: CALCIUM ACETATE 667 MG TAB PO SCH ×4 (07:59→21:09)
[2022-10-03] MEDS: hydrALAZINE HCL 50 MG TAB PO SCH ×3 (07:59→21:09)
[2022-10-03] MEDS: PANTOPRAZOLE 40 MG/10 ML VIAL IVP SCH (07:59)
[2022-10-03] MEDS: FOLIC ACID-VIT B COMPLEX-VIT C 1 CAP PO SCH (07:59)
[2022-10-03] MEDS: BUDESONIDE 0.5 MG/2 ML NEBU INHALATION SCH ×2 (08:52→20:50)
[2022-10-03] MEDS: IPRATROPIUM-ALBUTEROL 3 ML NEB INHALATION SCH ×4 (08:52→20:50)
--- NOTE | 2022-10-03 09:55 | P.PN ---
Subjective Progress Note Date: 10/03/22 This is a pleasant 72-year-old male patient with a history of hyperlipidemia, peripheral vascular disease, diabetes mellitus, chronic anemia on Procrit, coronary artery disease with previous coronary artery bypass grafting in 2020, end-stage renal disease on hemodialysis Thursday, asbestos- induced pleural plaque with previous VATS procedure and biopsies that were negative for malignancy or mesothelioma. He has chronic hypoxemic respiratory failure and follows in our office for the same. He was admitted on 09/30/2022 with complaints of generalized weakness and fatigue. He was scheduled for EGD today 10/02/2022 and during the procedure he was coughing and gagging and received more sedation. Following that he required intubation and was transferred to phase I recovery. The initial plan was for him to go to the intensive care unit. Upon consultation the patient is awake and alert and maintaining O2 saturations up to 100% on 3 L nasal cannula. He is hemodynamically stable. Denies any shortness of breath, cough or congestion. Chest x-ray reveals small bilateral pleural effusions with pulmonary vascular congestion. Some chronicity. White count 6.0. Hemoglobin 9.4. Platelets 119. Sodium 136. Potassium 3.8. I can't 26. BUN 30. Creatinine 4.6. Glucose 122. C. diff was negative. The patient is seen today 10/03/2022 in follow-up on the regular medical floor. He is currently sitting up at the bedside. Awake and alert in no acute distress. He is maintaining O2 saturations up to 99% on 4 L/m per nasal cannula. Afebrile. Hemodynamically stable. No worsening shortness of breath, cough or congestion. He is continued on DuoNeb inhalations, Solu-Medrol. Objective - Vital Signs Vital signs: Vital Signs Temp 97.5 F L 10/03/22 07:20 Pulse 74 10/03/22 09:06 Resp 19 10/03/22 07:20 BP 186/84 10/03/22 07:20 Pulse Ox 99 10/03/22 08:52 FiO2 Intake & Output 10/02/22 10/03/22 10/03/22 18:59 06:59 18:59 Intake Total 350 Balance 350 Weight 100 kg Intake: IV 350 Other: Voiding Method Toilet Toilet Diaper Incontinent # Voids 1 # Bowel Movements 1 - Exam GENERAL EXAM: Alert, oriented 72-year-old male, sitting up in bed, on 4 L nasal cannula, comfortable in no apparent distress. HEAD: Normocephalic. EYES: Normal reaction of pupils, equal size. NOSE: Clear with pink turbinates. THROAT: No erythema or exudates. NECK: No masses, no JVD. CHEST: No chest wall deformity. LUNGS: Equal air entry with no crackles, wheeze, rhonchi or dullness. CVS: S1 and S2 normal with no audible murmur, regular rhythm. ABDOMEN: No hepatosplenomegaly, normal bowel sounds, no guarding or rigidity. SPINE: No scoliosis or deformity SKIN: No rashes CENTRAL NERVOUS SYSTEM: No focal deficits, tone is normal in all 4 extremities. EXTREMITIES: There is no peripheral edema. No clubbing, no cyanosis. Peripheral pulses are intact. - Labs CBC & Chem 7: 10/02/22 06:37 10/02/22 06:37 Labs: Abnormal Lab Results - Last 24 Hours (Table) 10/02/22 10/02/22 10/02/22 Range/Units 06:37 06:37 06:37 RBC 3.17 L (4.40-5.60) X 10*6/uL Hgb 9.4 L (13.0-17.0) d/dL Hct 30.2 L (39.6-50.0) % MCHC 31.1 L (32.0-37.0) d/dL RDW 18.0 H (11.5-14.5) % Plt Count 119 L (140-440) X 10*3/uL Lymphocytes # 0.77 L (0.90-5.00) X 10*3/uL PT 12.5 H (9.9-11.9) sec Anion Gap 13.70 H (4.00-12.00) mmol/L BUN 29.6 H (9.0-27.0) mg/dL Creatinine 4.6 H (0.6-1.5) mg/dL Est GFR (CKD-EPI) 13 L (>=60) BUN/Creatinine Ratio 6.43 L (12.00-20.00) Ratio Glucose 122 H (70-110) mg/dL POC Glucose (mg/dL) (70-110) mg/dL Iron (65-175) UG/DL TIBC (228-460) UG/DL Transferrin (204.0-354.0) mg/dL Ferritin (22.0-322.0) ng/mL Alkaline Phosphatase 158 H (41-126) U/L Albumin 3.7 L (3.8-4.9) d/dL Albumin/Globulin Ratio 1.12 L (1.60-3.17) Ratio 10/02/22 10/02/22 10/02/22 Range/Units 06:37 13:21 17:17 RBC (4.40-5.60) X 10*6/uL Hgb (13.0-17.0) d/dL Hct (39.6-50.0) % MCHC (32.0-37.0) d/dL RDW (11.5-14.5) % Plt Count (140-440) X 10*3/uL Lymphocytes # (0.90-5.00) X 10*3/uL PT (9.9-11.9) sec Anion Gap (4.00-12.00) mmol/L BUN (9.0-27.0) mg/dL Creatinine (0.6-1.5) mg/dL Est GFR (CKD-EPI) (>=60) BUN/Creatinine Ratio (12.00-20.00) Ratio Glucose (70-110) mg/dL POC Glucose (mg/dL) 174 H 206 H (70-110) mg/dL Iron 41 L (65-175) UG/DL TIBC 227 L (228-460) UG/DL Transferrin 162.0 L (204.0-354.0) mg/dL Ferritin 1071.0 H (22.0-322.0) ng/mL Alkaline Phosphatase (41-126) U/L Albumin (3.8-4.9) d/dL Albumin/Globulin Ratio (1.60-3.17) Ratio 10/02/22 10/03/22 Range/Units 20:15 07:22 RBC (4.40-5.60) X 10*6/uL Hgb (13.0-17.0) d/dL Hct (39.6-50.0) % MCHC (32.0-37.0) d/dL RDW (11.5-14.5) % Plt Count (140-440) X 10*3/uL Lymphocytes # (0.90-5.00) X 10*3/uL PT (9.9-11.9) sec Anion Gap (4.00-12.00) mmol/L BUN (9.0-27.0) mg/dL Creatinine (0.6-1.5) mg/dL Est GFR (CKD-EPI) (>=60) BUN/Creatinine Ratio (12.00-20.00) Ratio Glucose (70-110) mg/dL POC Glucose (mg/dL) 235 H 258 H (70-110) mg/dL Iron (65-175) UG/DL TIBC (228-460) UG/DL Transferrin (204.0-354.0) mg/dL Ferritin (22.0-322.0) ng/mL Alkaline Phosphatase (41-126) U/L Albumin (3.8-4.9) d/dL Albumin/Globulin Ratio (1.60-3.17) Ratio Assessment and Plan Assessment: Acute hypoxic respiratory failure secondary to sedation during EGD procedure requiring temporary intubation, recovered on 4 L nasal cannula Generalized weakness and fatigue secondary to anemia History of chronic anemia on Procrit Chronic hypoxemic respiratory failure on home oxygen History of chronic loculated right-sided pleural effusion and pleural thickening status post VATS procedure that was negative for malignancy or mesothelioma History of asbestos exposure End-stage renal disease on hemodialysis 3 days a week History of coronary disease status post coronary bypass grafting 2020 Diabetes mellitus Peripheral vascular disease Hyperlipidemia Plan: The patient was seen and evaluated Labs and medications reviewed Titrate the FiO2 as tolerated We will see as needed Keep his scheduled appointment in our office I have personally seen and examined the patient, performed the documentation and the assessment and plan as written. Number of minutes spent on the visit: 10.
--- NOTE | 2022-10-03 10:50 | P.PN ---
Subjective Progress Note Date: 10/03/22 CHIEF COMPLAINT: GI bleed HISTORY OF PRESENT ILLNESS: Patient receiving hemodialysis now. He reports no further bloody bowel movements. EGD reported yesterday patient had respiratory failure secondary to sedation. He has been seen by pulmonary service. Currently on 4 L satting at 99%. PHYSICAL EXAM: VITAL SIGNS: Reviewed. GENERAL: Well-developed in no acute distress. ABDOMEN: Soft. Nondistended. Nontender. NEUROLOGIC: Alert and oriented. Cranial nerves II through XII grossly intact. ASSESSMENT: 1. Acute GI bleed with bloody bowel movements 2. Acute on chronic Anemia 3. History of peptic ulcer disease with bleeding 4. History of coronary disease with cardiac stents on Plavix and aspirin 5. Fluid overload received hemodialysis 6. Respiratory failure due to sedation from EGD PLAN: -No plans for endoscopies at this time -Continue Protonix -Continue to hold aspirin and Plavix -Continue to monitor hemoglobin -Continue to monitor for any signs or symptoms of bleeding Physician Beef Killer note has been reviewed by physician. Signing provider agrees with the documented findings, assessment, and plan of care. Objective - Vital Signs Vital signs: Vital Signs Temp 97.5 F L 10/03/22 07:20 Pulse 74 10/03/22 09:06 Resp 19 10/03/22 07:20 BP 186/84 10/03/22 07:20 Pulse Ox 99 10/03/22 08:52 FiO2 Intake & Output 10/02/22 10/03/22 10/03/22 18:59 06:59 18:59 Intake Total 350 Balance 350 Weight 100 kg Intake: IV 350 Other: Voiding Method Toilet Toilet Diaper Incontinent # Voids 1 # Bowel Movements 1 - Labs CBC & Chem 7: 10/02/22 06:37 10/02/22 06:37 Labs: Abnormal Lab Results - Last 24 Hours (Table) 10/02/22 10/02/22 10/02/22 Range/Units 06:37 06:37 06:37 RBC 3.17 L (4.40-5.60) X 10*6/uL Hgb 9.4 L (13.0-17.0) d/dL Hct 30.2 L (39.6-50.0) % MCHC 31.1 L (32.0-37.0) d/dL RDW 18.0 H (11.5-14.5) % Plt Count 119 L (140-440) X 10*3/uL Lymphocytes # 0.77 L (0.90-5.00) X 10*3/uL PT 12.5 H (9.9-11.9) sec Anion Gap 13.70 H (4.00-12.00) mmol/L BUN 29.6 H (9.0-27.0) mg/dL Creatinine 4.6 H (0.6-1.5) mg/dL Est GFR (CKD-EPI) 13 L (>=60) BUN/Creatinine Ratio 6.43 L (12.00-20.00) Ratio Glucose 122 H (70-110) mg/dL POC Glucose (mg/dL) (70-110) mg/dL Iron (65-175) UG/DL TIBC (228-460) UG/DL Transferrin (204.0-354.0) mg/dL Ferritin (22.0-322.0) ng/mL Alkaline Phosphatase 158 H (41-126) U/L Albumin 3.7 L (3.8-4.9) d/dL Albumin/Globulin Ratio 1.12 L (1.60-3.17) Ratio 10/02/22 10/02/22 10/02/22 Range/Units 06:37 13:21 17:17 RBC (4.40-5.60) X 10*6/uL Hgb (13.0-17.0) d/dL Hct (39.6-50.0) % MCHC (32.0-37.0) d/dL RDW (11.5-14.5) % Plt Count (140-440) X 10*3/uL Lymphocytes # (0.90-5.00) X 10*3/uL PT (9.9-11.9) sec Anion Gap (4.00-12.00) mmol/L BUN (9.0-27.0) mg/dL Creatinine (0.6-1.5) mg/dL Est GFR (CKD-EPI) (>=60) BUN/Creatinine Ratio (12.00-20.00) Ratio Glucose (70-110) mg/dL POC Glucose (mg/dL) 174 H 206 H (70-110) mg/dL Iron 41 L (65-175) UG/DL TIBC 227 L (228-460) UG/DL Transferrin 162.0 L (204.0-354.0) mg/dL Ferritin 1071.0 H (22.0-322.0) ng/mL Alkaline Phosphatase (41-126) U/L Albumin (3.8-4.9) d/dL Albumin/Globulin Ratio (1.60-3.17) Ratio 10/02/22 10/03/22 Range/Units 20:15 07:22 RBC (4.40-5.60) X 10*6/uL Hgb (13.0-17.0) d/dL Hct (39.6-50.0) % MCHC (32.0-37.0) d/dL RDW (11.5-14.5) % Plt Count (140-440) X 10*3/uL Lymphocytes # (0.90-5.00) X 10*3/uL PT (9.9-11.9) sec Anion Gap (4.00-12.00) mmol/L BUN (9.0-27.0) mg/dL Creatinine (0.6-1.5) mg/dL Est GFR (CKD-EPI) (>=60) BUN/Creatinine Ratio (12.00-20.00) Ratio Glucose (70-110) mg/dL POC Glucose (mg/dL) 235 H 258 H (70-110) mg/dL Iron (65-175) UG/DL TIBC (228-460) UG/DL Transferrin (204.0-354.0) mg/dL Ferritin (22.0-322.0) ng/mL Alkaline Phosphatase (41-126) U/L Albumin (3.8-4.9) d/dL Albumin/Globulin Ratio (1.60-3.17) Ratio
--- NOTE | 2022-10-03 11:49 | P.PN ---
Subjective Patient is seen in follow-up for end-stage renal disease. He is maintained on hemodialysis on Thursday schedule. Tolerating dialysis well. Blood pressure stable. Did not undergo EGD and colonoscopy yesterday due to respiratory failure from anesthesia. Currently on nasal cannula. Denies chest pain or shortness of breath. Denies diarrhea overnight. Vital signs are stable. General: No acute distress. HEENT: Head exam is unremarkable. LUNGS: No audible rhonchi or wheezes. HEART: Rate and Rhythm are regular. ABDOMEN: Nontender. EXTREMITITES: No edema. Objective - Vital Signs Vital signs: Vital Signs Temp 97.5 F L 10/03/22 07:20 Pulse 74 10/03/22 09:06 Resp 19 10/03/22 07:20 BP 186/84 10/03/22 07:20 Pulse Ox 99 10/03/22 08:52 FiO2 Intake & Output 10/02/22 10/03/22 10/03/22 18:59 06:59 18:59 Intake Total 350 Balance 350 Weight 100 kg Intake: IV 350 Other: Voiding Method Toilet Toilet Diaper Incontinent # Voids 1 # Bowel Movements 1 - Labs CBC & Chem 7: 10/02/22 06:37 10/02/22 06:37 Labs: Abnormal Lab Results - Last 24 Hours (Table) 10/02/22 10/02/22 10/02/22 Range/Units 06:37 06:37 13:21 PT 12.5 H (9.9-11.9) sec POC Glucose (mg/dL) 174 H (70-110) mg/dL Iron 41 L (65-175) UG/DL TIBC 227 L (228-460) UG/DL Transferrin 162.0 L (204.0-354.0) mg/dL Ferritin 1071.0 H (22.0-322.0) ng/mL 10/02/22 10/02/22 10/03/22 Range/Units 17:17 20:15 07:22 PT (9.9-11.9) sec POC Glucose (mg/dL) 206 H 235 H 258 H (70-110) mg/dL Iron (65-175) UG/DL TIBC (228-460) UG/DL Transferrin (204.0-354.0) mg/dL Ferritin (22.0-322.0) ng/mL Assessment and Plan Plan: Assessment: 1. End-stage renal disease maintained on hemodialysis on Thursday y schedule. 2. Nausea vomiting and diarrhea. Possibly gastroenteritis. C. diff negative. Rule out GI bleed. Surgery following. EGD and colonoscopy not done as patient did not tolerate anesthesia. 3. Acute on chronic diastolic CHF. 4. Hypertension with chronic kidney disease. Blood pressure well controlled during dialysis. 5. Chronic kidney disease mineral bone disease maintained on PhosLo. Phosphorus level 4.4 dated 10/01/2022. 6. Anemia of chronic kidney disease. Iron deficiency noted. Plan: Currently seen while undergoing hemodialysis. Maintain when necessary hydralazine. Stopped jardiance as it is contraindicated in end-stage renal disease. Maintain IV iron. Add Aranesp.
[2022-10-03 12:30] LABS: Glucose,Whole Blood 210 mg/dL (70-110)
[2022-10-03] MEDS: SODIUM FERRIC GLUCONAT-SUCROSE 125 MG in SODIUM CHLORIDE 0.9% 100 ML IVPB SCH (13:01)
[2022-10-03] MEDS ORDERED: IPRATROPIUM-ALBUTEROL 3 ML NEB INHALATION PRN (13:22)
[2022-10-03] MEDS ORDERED: DARBEPOETIN ALFA 40 MCG/0.4 ML SYRINGE SQ SCH (14:00)
[2022-10-03 17:12] LABS: Glucose,Whole Blood 389 mg/dL (70-110)
[2022-10-03 17:47] LABS: Anisocytosis Slight; HCT 31.1 % (39.0-53.0); Hypochromasia Moderate; MCH 31.5 pg (25.0-35.0); MCHC 32.3 g/dL (31.0-37.0); MCV 97.4 fL (80.0-100.0); Macrocytosis Slight; Mean Platelet Volume 9.3; Platelet Count 113 k/uL (150-450); RBC 3.19 m/uL (4.30-5.90); RDW 17.3 % (11.5-15.5); WBC 7.1 k/uL (3.8-10.6)
[2022-10-03] MEDS: INSULIN ASPART (NovoLOG) 100 UNIT/ML VIAL SQ SCH ×2 (18:52→21:08)
[2022-10-03 20:11] LABS: Glucose,Whole Blood 389 mg/dL (70-110)
--- NOTE | 2022-10-03 20:19 | P.PN ---
Progress Note - Text Progress Note Date: 10/03/22 Presenting complaint: Tired Hospital course: I'm rounding for Dr. Isaak Amaya. 10/03/2022: Patient is to receive sedation for endoscopy. Relevant respiratory failure. Was intubated. Successfully extubated. Patient was having bloody bowel movements. Aspirin Plavix on hold. Patient does use 2-3 oxygen at home. We checked patient is oxygen and was down to 3 L. Pulse ox above 92%. Sitting at the edge of the bed. Incentive spirometry ordered. Patient being followed by surgery and Dr. Shannon. Patient lives alone. Patient 100% of his breakfast and lunch. Care was discussed length with the patient. Questions answered. Discussed with nurse. Also discussed with Dr. Isaak Amaya was patient's family doctor. Total time spent today about 1 hour over 40 minutes of discussion. Active Medications Acetaminophen (Acetaminophen Tab 325 Mg Tab) 650 mg PO Q4HR PRN PRN Reason: Mild to Moderate Pain (1 - 6) Albuterol/Ipratropium (Ipratropium-Albuterol 3 Ml Neb) 3 ml INHALATION RT-QID [facility] Last Admin: 10/03/22 15:15 Dose: 3 ml Albuterol/Ipratropium (Ipratropium-Albuterol 3 Ml Neb) 3 ml INHALATION RT-QID PRN PRN Reason: SHORTNESS OF BREATH Budesonide (Budesonide 0.5 Mg/2 Ml Nebu) 0.5 mg INHALATION RT-BID [facility] Last Admin: 10/03/22 08:52 Dose: 0.5 mg Calcium Acetate (Calcium Acetate 667 Mg Tab) 667 mg PO ACHS [facility] Last Admin: 10/03/22 17:02 Dose: 667 mg Carvedilol (Carvedilol 6.25 Mg Tab) 6.25 mg PO BID-W/MEALS [facility] Last Admin: 10/03/22 17:02 Dose: 6.25 mg Darbepoetin [place] (Darbepoetin [place] 40 Mcg/0.4 Ml Syringe) 40 mcg SQ Q7D [facility] Last Admin: 10/03/22 13:10 Dose: 40 mcg Escitalopram Oxalate (Escitalopram 20 Mg Tab) 20 mg PO HS [facility] Last Admin: 10/02/22 21:18 Dose: 20 mg Hydralazine HCl (Hydralazine Hcl 50 Mg Tab) 50 mg PO TID [facility] Last Admin: 10/03/22 17:03 Dose: 50 mg Hydralazine HCl (Hydralazine Hcl 20 Mg/Ml 1 Ml Vial) 10 mg IVP Q6HR PRN PRN Reason: Blood Pressure - High Ferric Sodium Gluconate 125 mg (/ Sodium Chloride) 110 mls @ 100 mls/hr IVPB DAILY [facility] Last Admin: 10/03/22 13:01 Dose: 100 mls/hr Insulin Aspart (Insulin Aspart (Novolog) 100 Unit/Ml Vial) 0 unit SQ ACHS [facility]; Protocol Last Admin: 10/03/22 18:52 Dose: 10 unit Methylprednisolone Sodium Succinate (Methylprednisolone Sod Succi 40 Mg/Ml 1 Ml Vial) 40 mg IV Q8HR [facility] Last Admin: 10/03/22 17:03 Dose: 40 mg Multivit/Ca Carb/B Cmplx/FA/Prenat (Folic Acid-Vit B Complex-Vit C 1 Cap) 1 each PO QAM [facility] Last Admin: 10/03/22 07:59 Dose: 1 each Naloxone HCl (Naloxone 0.4 Mg/Ml 1 Ml Vial) 0.2 mg IV Q2M PRN PRN Reason: Opioid Reversal Non-Formulary Medication (Rosuvastatin Calcium [Crestor]) 40 mg PO HS [facility] Last Admin: 10/02/22 21:47 Dose: Not Given Ondansetron HCl (Ondansetron 4 Mg/2 Ml Vial) 4 mg IVP Q6HR PRN PRN Reason: Nausea And Vomiting Last Admin: 10/01/22 03:12 Dose: 4 mg Pantoprazole Sodium (Pantoprazole 40 Mg/10 Ml Vial) 40 mg IVP DAILY [facility] Last Admin: 10/03/22 07:59 Dose: 40 mg Zolpidem Tartrate (Zolpidem 5 Mg Tab) 10 mg PO [facility] On examination: VITAL SIGNS: [97.6, 62, 19, 142.72, 95% on 4 L] GENERAL APPEARANCE: BMI 26.8, sitting of the edge of the bed, not in distress. HEENT: Normal external appearance of nose and ear. Oral cavity normal EYES: Pupils equal. Conjunctiva normal. NECK: JVD not raised. Mass not palpable. RESPIRATORY: Respiratory effort normal. Lungs decreased breath sound. CARDIOVASCULAR: First and second sounds normal. No edema. ABDOMEN: Soft. Liver and spleen not palpable. No tenderness. No mass palpable. PSYCHIATRY: Alert and oriented x3. Mood and affect normal. INVESTIGATIONS, reviewed in the clinical context: 10/03/2022: White count 7.1 hemoglobin 10 platelets 113 October 02: Hemoglobin 9.4. Sodium 136 potassium 3.8 BUN 29.6 creatinine 4.6 C. diff: Negative 2-D echocardiogram 0.30 April 2022] EF 50-55% Assessment and plan: -Acute hypoxic respiratory failure secondary to sedation given for EGD. Patient status post ventilator assist. Currently on 4 L nasal cannula. -Chronic hypoxic respiratory failure from underlying COPD. On 2-3 L of oxygen at home -Coronary artery disease prior history of stent, history of corneal bypass 2021 Currently off aspirin Plavix because of GI bleed -Chronic congestive heart failure from diastolic dysfunction EF 50-55% -Diabetes mellitus type 2, uncontrolled with hyperglycemia secondary steroids Follow Accu-Cheks with sliding scale -Acute COPD exacerbation in a prior smoker DuoNeb. IV Solu-Medrol. Being followed by Favian Shannon. Pulmicort -End-stage kidney disease hemodialysis Follow with nephrology -GERD -Anemia of chronic kidney disease and from GI bleed Follow H&H -Essential hypertension Coreg 6.25 mg twice a day -Hyperlipidemia -Deaf in the left ear -Acute GI bleed. Patient aspirin Plavix has been held. Unable to do EGD because patient went into respiratory failure. PPI -Depression Lexapro -DO NOT RESUSCITATE Follow CBC. DC IV Solu-Medrol. Oral prednisone 40 mg. Decrease FiO2 as tolerated.
[2022-10-03] MEDS ORDERED: ZOLPIDEM 5 MG TAB PO SCH (21:00)
[2022-10-03] MEDS: ESCITALOPRAM 20 MG TAB PO SCH (21:09)
[2022-10-03] MEDS: NON FORMULARY DRUG (Rosuvastatin Calcium [Crestor] 40 MG Tablet) PO SCH (21:09)
[2022-10-04 07:22] LABS: Glucose,Whole Blood 149 mg/dL (70-110)
--- NOTE | 2022-10-04 07:50 | CT ---
EXAMINATION TYPE: CT chest wo con DATE OF EXAM: 10/03/2022 COMPARISON: 08/19/2022 HISTORY: Pleural effusion. CT DLP: 538.[address] of the chest was performed with lung and mediastinal window settings submitted. The la ck of contrast limits evaluation of the vascular, mediastinal and parenchymal structures including th e upper abdomen. LUNGS: Small moderate bilateral pleural effusions persist maximal AP dimension on the right of 5.3 cm versus 5.7 cm previously and on the left 4.7 cm versus 3.9 cm previously. There is dependent atelect asis. Dependent calcifications are again seen bilaterally. Patchy infiltrates noted left upper lobe a nd lingula are new when correlate for underlying pneumonia. There is Scattered fibrosis noted as well . MEDIASTINUM/ARNALDO: Thoracic aorta is of normal caliber with limited evaluation given lack of contrast . The heart is moderately cardiomegaly. Changes of prior CABG. No evidence for mediastinal mass. No lymph nodes greater than 1cm. UPPER ABDOMEN: No significant abnormality is seen. OTHER: No significant other abnormality. IMPRESSION: 1. Persistent small to moderate bilateral pleural effusions with new areas of infiltrate left upper lobe. Correlate for pneumonia. Dependent parenchymal calcifications seen bilaterally as well as basil ar atelectasis.
[2022-10-04] MEDS: INSULIN ASPART (NovoLOG) 100 UNIT/ML VIAL SQ SCH ×4 (08:12→20:45)
[2022-10-04] MEDS: predniSONE 20 MG TAB PO SCH (08:30)
[2022-10-04] MEDS: FOLIC ACID-VIT B COMPLEX-VIT C 1 CAP PO SCH (08:30)
[2022-10-04] MEDS: CALCIUM ACETATE 667 MG TAB PO SCH ×4 (08:30→20:46)
[2022-10-04] MEDS: hydrALAZINE HCL 50 MG TAB PO SCH ×3 (08:30→21:22)
[2022-10-04] MEDS: carvediloL 6.25 MG TAB PO SCH ×2 (08:30→17:49)
[2022-10-04] MEDS: PANTOPRAZOLE 40 MG/10 ML VIAL IVP SCH (08:47)
[2022-10-04] MEDS: SODIUM FERRIC GLUCONAT-SUCROSE 125 MG in SODIUM CHLORIDE 0.9% 100 ML IVPB SCH (08:48)
[2022-10-04] MEDS: IPRATROPIUM-ALBUTEROL 3 ML NEB INHALATION SCH ×5 (08:58→19:54)
[2022-10-04] MEDS: BUDESONIDE 0.5 MG/2 ML NEBU INHALATION SCH ×2 (08:58→19:54)
[2022-10-04 10:26] LABS: Basophils # (A) 0.01 X 10*3/uL (0.00-0.10); Basophils % (A) 0.1 %; Eosinophils # (A) 0 X 10*3/uL (0.04-0.35); Eosinophils % (A) 0 %; HCT 30.3 % (39.6-50.0); HGB 9.7 d/dL (13.0-17.0); Lymphocytes # (A) 0.58 X 10*3/uL (0.90-5.00); Lymphocytes % (A) 6.5 %; MCH 30.7 pg (27.0-32.0); MCV 95.9 FL (80.0-97.0); Mean Platelet Volume 11.6 FL (9.5-12.2); Monocytes # (A) 0.63 X 10*3/uL (0.20-1.00); Monocytes % (A) 7.1 %; NRBC Per 100 WBC 0 X 10*3/uL (0.00-0.01); Neutrophils # (A) 7.63 X 10*3/uL (1.80-7.70); Neutrophils % (A) 85.7 %; Platelet Count 140 X 10*3/uL (140-440); RBC 3.16 X 10*6/uL (4.40-5.60); RDW 17.4 % (11.5-14.5)
--- NOTE | 2022-10-04 10:29 | P.PN ---
Subjective Progress Note Date: 10/04/22 Principal diagnosis: GI bleed Patient had no bleeding overnight. Hemoglobin today is stable at 9.7. No abdominal pain. Objective - Vital Signs Vital signs: Vital Signs Temp 97.5 F L 10/04/22 07:05 Pulse 74 10/04/22 09:12 Resp 18 10/04/22 07:05 BP 166/55 10/04/22 07:05 Pulse Ox 97 10/04/22 08:58 FiO2 Intake & Output 10/03/22 10/04/22 10/04/22 18:59 06:59 18:59 Intake Total 300 520 Output Total 2300 Balance -1999 520 Weight 99.5 kg Intake: Oral 520 Hemodialysis 300 Output: Hemodialysis 2300 Other: Voiding Method Toilet Toilet # Voids 2 3 - Exam Abdomen: Soft, nontender, nondistended - Labs CBC & Chem 7: 10/04/22 06:35 10/02/22 06:37 Labs: Abnormal Lab Results - Last 24 Hours (Table) 10/03/22 10/03/22 10/03/22 Range/Units 12:29 17:11 17:20 RBC 3.19 L (4.30-5.90) m/uL Hgb 10.0 L (13.0-17.5) gm/dL Hct 31.1 L (39.0-53.0) % RDW 17.3 H (11.5-15.5) % Plt Count 113 L (150-450) k/uL Lymphocytes # (0.90-5.00) X 10*3/uL Eosinophils # (0.04-0.35) X 10*3/uL POC Glucose (mg/dL) 210 H 389 H (70-110) mg/dL 10/03/22 10/04/22 10/04/22 Range/Units 20:08 06:35 07:09 RBC 3.16 L (4.30-5.90) m/uL Hgb 9.7 L (13.0-17.5) gm/dL Hct 30.3 L (39.0-53.0) % RDW 17.4 H (11.5-15.5) % Plt Count (150-450) k/uL Lymphocytes # 0.58 L (0.90-5.00) X 10*3/uL Eosinophils # 0 L (0.04-0.35) X 10*3/uL POC Glucose (mg/dL) 389 H 149 H (70-110) mg/dL Assessment and Plan (1) GI bleed Narrative/Plan: 72-year-old male with GI bleed. Patient was unstable for endoscopy. Apparently family discussing possible hospice discharge currently. Current Visit: Yes Status: Acute Code(s): K92.2 - GASTROINTESTINAL HEMORRHAGE, UNSPECIFIED SNOMED Code(s): 34005488
[2022-10-04 11:46] LABS: Glucose,Whole Blood 327 mg/dL (70-110)
[2022-10-04] MEDS ORDERED: carvediloL 6.25 MG TAB PO STA (12:50)
--- NOTE | 2022-10-04 14:05 | P.PN ---
Subjective Patient is seen for follow-up for end-stage renal disease. Patient states he is feeling much better and breathing easier today. Status post UF of 2.3 L yesterday with hemodialysis. Objective - Vital Signs Vital signs: Vital Signs Temp 97.3 F L 10/04/22 11:25 Pulse 68 10/04/22 11:55 Resp 18 10/04/22 11:25 BP 169/79 10/04/22 11:25 Pulse Ox 94 L 10/04/22 11:25 FiO2 Intake & Output 10/03/22 10/04/22 10/04/22 18:59 06:59 18:59 Intake Total 300 520 Output Total 2300 Balance -1999 520 Weight 99.5 kg Intake: Oral 520 Hemodialysis 300 Output: Hemodialysis 2300 Other: Voiding Method Toilet Toilet # Voids 2 3 - Exam Awake, comfortable, no acute distress Examination of the heart S1 and S2 Examination of the lungs bilateral breath sounds are heard Examination lower extremity shows no significant edema. 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 intact - Labs CBC & Chem 7: 10/04/22 06:35 10/02/22 06:37 Labs: Abnormal Lab Results - Last 24 Hours (Table) 10/03/22 10/03/22 10/03/22 Range/Units 17:11 17:20 20:08 RBC 3.19 L (4.30-5.90) m/uL Hgb 10.0 L (13.0-17.5) gm/dL Hct 31.1 L (39.0-53.0) % RDW 17.3 H (11.5-15.5) % Plt Count 113 L (150-450) k/uL Lymphocytes # (0.90-5.00) X 10*3/uL Eosinophils # (0.04-0.35) X 10*3/uL POC Glucose (mg/dL) 389 H 389 H (70-110) mg/dL 10/04/22 10/04/22 10/04/22 Range/Units 06:35 07:09 11:34 RBC 3.16 L (4.30-5.90) m/uL Hgb 9.7 L (13.0-17.5) gm/dL Hct 30.3 L (39.0-53.0) % RDW 17.4 H (11.5-15.5) % Plt Count (150-450) k/uL Lymphocytes # 0.58 L (0.90-5.00) X 10*3/uL Eosinophils # 0 L (0.04-0.35) X 10*3/uL POC Glucose (mg/dL) 149 H 327 H (70-110) mg/dL Assessment and Plan Assessment: 1. End-stage renal disease maintained on hemodialysis on Thursday schedule. 2. Nausea vomiting and diarrhea. Possibly gastroenteritis. C. diff negative. Rule out GI bleed. Surgery following. EGD and colonoscopy not done as patient did not tolerate anesthesia. 3. Acute on chronic diastolic CHF. 4. Hypertension with chronic kidney disease. Blood pressure well controlled during dialysis. 5. Chronic kidney disease mineral bone disease maintained on PhosLo. Phosphorus level 4.4 dated 10/01/2022. 6. Anemia of chronic kidney disease. Iron deficiency noted. Plan: Maintain hemodialysis Thursday schedule Continue with Jonah
[2022-10-04 14:26] LABS: ALT 12 U/L (10-49); AST 24 U/L (14-35); Albumin 3.9 d/dL (3.8-4.9); Albumin/Globulin Ratio 1.18 Ratio (1.60-3.17); Alkaline Phosphatase 154 U/L (41-126); BUN/Creat Ratio 8.02 Ratio (12.00-20.00); Blood Urea Nitrogen 39.3 mg/dL (9.0-27.0); Carbon Dioxide 24.4 mmol/L (21.6-31.8); Chloride 90 mmol/L (96-109); Globulin 3.3 d/dL (1.6-3.3); Glucose 144 mg/dL (70-110); Potassium 5.2 mmol/L (3.5-5.5); Sodium 128 mmol/L (135-145); Total Bilirubin 0.8 mg/dL (0.3-1.2); Total Protein 7.2 d/dL (6.2-8.2)
--- NOTE | 2022-10-04 16:20 | P.PN ---
Progress Note - Text Progress Note Date: 10/04/22 Presenting complaint: Tired Hospital course: I'm rounding for Dr. Isaak Amaya. 10/03/2022: Patient is to receive sedation for endoscopy. Relevant respiratory failure. Was intubated. Successfully extubated. Patient was having bloody bowel movements. Aspirin Plavix on hold. Patient does use 2-3 oxygen at home. We checked patient is oxygen and was down to 3 L. Pulse ox above 92%. Sitting at the edge of the bed. Incentive spirometry ordered. Patient being followed by surgery and Dr. Shannon. Patient lives alone. Patient 100% of his breakfast and lunch. Care was discussed length with the patient. Questions answered. Discussed with nurse. Also discussed with Dr. Isaak Amaya was patient's family doctor. Total time spent today about 1 hour over 40 minutes of discussion. 10/04/2022: Patient eating well. Breathing is stable. 94% on 4 L. Hemoglobin remained stable. Increase activity as tolerated. Patient remains off aspirin and Plavix. On PPI. Denies any cough. Active Medications Acetaminophen (Acetaminophen Tab 325 Mg Tab) 650 mg PO Q4HR PRN PRN Reason: Mild to Moderate Pain (1 - 6) Albuterol/Ipratropium (Ipratropium-Albuterol 3 Ml Neb) 3 ml INHALATION RT-QID [facility] Last Admin: 10/04/22 15:43 Dose: Not Given Albuterol/Ipratropium (Ipratropium-Albuterol 3 Ml Neb) 3 ml INHALATION RT-QID PRN PRN Reason: SHORTNESS OF BREATH Budesonide (Budesonide 0.5 Mg/2 Ml Nebu) 0.5 mg INHALATION RT-BID [facility] [place] Last Admin: 10/04/22 08:58 Dose: 0.5 mg Calcium Acetate (Calcium Acetate 667 Mg Tab) 667 mg PO ACHS [facility] [place] Last Admin: 10/04/22 12:58 Dose: 667 mg Carvedilol (Carvedilol 6.25 Mg Tab) 6.25 mg PO BID-W/MEALS [facility] [place] Last Admin: 10/04/22 08:30 Dose: 6.25 mg Carvedilol (Carvedilol 12.5 Mg Tab) 12.5 mg PO BID-W/MEALS [facility] [place] Darbepoetin [place] (Darbepoetin [place] 40 Mcg/0.4 Ml Syringe) 40 mcg SQ Q7D [facility] [place] Last Admin: 10/03/22 13:10 Dose: 40 mcg Escitalopram Oxalate (Escitalopram 20 Mg Tab) 20 mg PO HS [facility] [place] Last Admin: 10/03/22 21:09 Dose: 20 mg Hydralazine HCl (Hydralazine Hcl 50 Mg Tab) 50 mg PO TID [facility] [place] Last Admin: 10/04/22 08:30 Dose: 50 mg Hydralazine HCl (Hydralazine Hcl 20 Mg/Ml 1 Ml Vial) 10 mg IVP Q6HR PRN PRN Reason: Blood Pressure - High Ferric Sodium Gluconate 125 mg (/ Sodium Chloride) 110 mls @ 100 mls/hr IVPB DAILY [facility] [place] Last Admin: 10/04/22 08:48 Dose: 100 mls/hr Insulin Aspart (Insulin Aspart (Novolog) 100 Unit/Ml Vial) 0 unit SQ ACHS [facility] [place]; Protocol Last Admin: 10/04/22 12:57 Dose: 8 unit Multivit/Ca Carb/B Cmplx/FA/Prenat (Folic Acid-Vit B Complex-Vit C 1 Cap) 1 each PO QAM [facility] [place] Last Admin: 10/04/22 08:30 Dose: 1 each Naloxone HCl (Naloxone 0.4 Mg/Ml 1 Ml Vial) 0.2 mg IV Q2M PRN PRN Reason: Opioid Reversal Non-Formulary Medication (Rosuvastatin Calcium [Crestor]) 40 mg PO HS [facility] [place] Last Admin: 10/03/22 21:09 Dose: Not Given Ondansetron HCl (Ondansetron 4 Mg/2 Ml Vial) 4 mg IVP Q6HR PRN PRN Reason: Nausea And Vomiting Last Admin: 10/01/22 03:12 Dose: 4 mg Pantoprazole Sodium (Pantoprazole 40 Mg Tablet) 40 mg PO AC-BID [facility] [place] Prednisone (Prednisone 20 Mg Tab) 40 mg PO DAILY [facility] [place] Last Admin: 10/04/22 08:30 Dose: 40 mg Zolpidem Tartrate (Zolpidem 5 Mg Tab) 5 mg PO HS [facility] [place] On examination: VITAL SIGNS: 97.3, 59, 18, 169%), 94% on 4 L GENERAL APPEARANCE: BMI 26.8, sitting up in bed, eating lunch HEENT: Normal external appearance of nose and ear. Oral cavity normal EYES: Pupils equal. Conjunctiva normal. NECK: JVD not raised. Mass not palpable. RESPIRATORY: Respiratory effort normal. Lungs decreased breath sound. CARDIOVASCULAR: First and second sounds normal. No edema. ABDOMEN: Soft. Liver and spleen not palpable. No tenderness. No mass palpable. PSYCHIATRY: Alert and oriented x3. Mood and affect normal. INVESTIGATIONS, reviewed in the clinical context: 10/04/2022: White count 8.9 hemoglobin 9.7 platelets 140 sodium 128 potassium 5.2 BUN 39.3 creatinine 4.9 10/03/2022: White count 7.1 hemoglobin 10 platelets 113 October 02: Hemoglobin 9.4. Sodium 136 potassium 3.8 BUN 29.6 creatinine 4.6 C. diff: Negative 2-D echocardiogram 0.30 April 2022] EF 50-55% Assessment and plan: -Acute hypoxic respiratory failure secondary to sedation given for EGD. Patient status post ventilator assist. Currently on 4 L nasal cannula. -Chronic hypoxic respiratory failure from underlying COPD. On 2-3 L of oxygen at home -Coronary artery disease prior history of stent, history of coronary bypass 2021 Currently off aspirin Plavix because of GI bleed -Chronic congestive heart failure from diastolic dysfunction EF 50-55% -Diabetes mellitus type 2, uncontrolled with hyperglycemia secondary steroids Follow Accu-Cheks with sliding scale -Acute COPD exacerbation in a prior smoker: Better DuoNeb. IV [id number] to oral prednisone. Being followed by Dr. Shannon. [place] -End-stage kidney disease hemodialysis Follow with nephrology. Dialysis Thursday and Thursday -GERD -Anemia of chronic kidney disease and from GI bleed Follow H&H -Hyponatremia. -Essential hypertension Coreg 6.25 mg twice a day -Hyperlipidemia -Deaf in the left ear -Acute GI bleed. Patient aspirin Plavix has been held. Unable to do EGD because patient went into respiratory failure. PPI -Depression Lexapro -DO NOT RESUSCITATE Discussed at length with the patient. Follow hemoglobin. Follow with pulmonary.
[2022-10-04 17:23] LABS: Glucose,Whole Blood 386 mg/dL (70-110)
[2022-10-04] MEDS: PANTOPRAZOLE 40 MG TABLET PO SCH (17:47)
[2022-10-04] MEDS: carvediloL 12.5 MG TAB PO SCH (17:47)
[2022-10-04 20:10] LABS: Glucose,Whole Blood 425 mg/dL (70-110)
[2022-10-04] MEDS: ESCITALOPRAM 20 MG TAB PO SCH (20:46)
[2022-10-04] MEDS: NON FORMULARY DRUG (Rosuvastatin Calcium [Crestor] 40 MG Tablet) PO SCH (20:46)
[2022-10-04] MEDS: ZOLPIDEM 5 MG TAB PO SCH (20:46)
[2022-10-04 22:09] LABS: Glucose,Whole Blood 256 mg/dL (70-110)
[2022-10-05 07:24] LABS: Glucose,Whole Blood 83 mg/dL (70-110)
[2022-10-05] MEDS: SODIUM FERRIC GLUCONAT-SUCROSE 125 MG in SODIUM CHLORIDE 0.9% 100 ML IVPB SCH (08:26)
[2022-10-05] MEDS: hydrALAZINE HCL 50 MG TAB PO SCH ×3 (08:26→21:22)
[2022-10-05] MEDS: PANTOPRAZOLE 40 MG TABLET PO SCH ×2 (08:26→18:04)
[2022-10-05] MEDS: CALCIUM ACETATE 667 MG TAB PO SCH ×4 (08:26→21:22)
[2022-10-05] MEDS: predniSONE 20 MG TAB PO SCH (08:26)
[2022-10-05] MEDS: carvediloL 12.5 MG TAB PO SCH ×2 (08:26→18:04)
[2022-10-05] MEDS: FOLIC ACID-VIT B COMPLEX-VIT C 1 CAP PO SCH (08:31)
[2022-10-05] MEDS: BUDESONIDE 0.5 MG/2 ML NEBU INHALATION SCH ×2 (08:39→19:35)
[2022-10-05] MEDS: IPRATROPIUM-ALBUTEROL 3 ML NEB INHALATION SCH ×4 (08:39→19:35)
[2022-10-05] MEDS: INSULIN ASPART (NovoLOG) 100 UNIT/ML VIAL SQ SCH ×4 (08:46→21:22)
--- NOTE | 2022-10-05 08:55 | P.PN ---
Subjective Progress Note Date: 10/05/22 Principal diagnosis: GI bleed Patient doing better today. No pain. No rectal bleeding or melena. Hemoglobin yesterday 9.7. Vitals are stable. Objective - Vital Signs Vital signs: Vital Signs Temp 97.5 F L 10/05/22 07:00 Pulse 72 10/05/22 08:42 Resp 17 10/05/22 07:00 BP 151/74 10/05/22 07:00 Pulse Ox 98 10/05/22 08:41 FiO2 Intake & Output 10/04/22 10/05/22 10/05/22 18:59 06:59 18:59 Weight 98 kg Other: Voiding Method Toilet # Voids 0 1 - Exam Abdomen: Soft, nontender, nondistended - Labs CBC & Chem 7: 10/04/22 06:35 10/04/22 06:35 Labs: Abnormal Lab Results - Last 24 Hours (Table) 10/04/22 10/04/22 10/04/22 Range/Units 06:35 06:35 11:34 RBC 3.16 L (4.40-5.60) X 10*6/uL Hgb 9.7 L (13.0-17.0) d/dL Hct 30.3 L (39.6-50.0) % RDW 17.4 H (11.5-14.5) % Lymphocytes # 0.58 L (0.90-5.00) X 10*3/uL Eosinophils # 0 L (0.04-0.35) X 10*3/uL Sodium 128 L (135-145) mmol/L Chloride 90 L (96-109) mmol/L Anion Gap 13.60 H (4.00-12.00) mmol/L BUN 39.3 H (9.0-27.0) mg/dL Creatinine 4.9 H (0.6-1.5) mg/dL Est GFR (CKD-EPI) 12 L (>=60) BUN/Creatinine Ratio 8.02 L (12.00-20.00) Ratio Glucose 144 H (70-110) mg/dL POC Glucose (mg/dL) 327 H (70-110) mg/dL Alkaline Phosphatase 154 H (41-126) U/L Albumin/Globulin Ratio 1.18 L (1.60-3.17) Ratio 10/04/22 10/04/22 10/04/22 Range/Units 17:21 20:08 22:05 RBC (4.40-5.60) X 10*6/uL Hgb (13.0-17.0) d/dL Hct (39.6-50.0) % RDW (11.5-14.5) % Lymphocytes # (0.90-5.00) X 10*3/uL Eosinophils # (0.04-0.35) X 10*3/uL Sodium (135-145) mmol/L Chloride (96-109) mmol/L Anion Gap (4.00-12.00) mmol/L BUN (9.0-27.0) mg/dL Creatinine (0.6-1.5) mg/dL Est GFR (CKD-EPI) (>=60) BUN/Creatinine Ratio (12.00-20.00) Ratio Glucose (70-110) mg/dL POC Glucose (mg/dL) 386 H 425 H 256 H (70-110) mg/dL Alkaline Phosphatase (41-126) U/L Albumin/Globulin Ratio (1.60-3.17) Ratio Assessment and Plan (1) GI bleed Narrative/Plan: 72-year-old male with GI bleed. Continue hold anticoagulation. Monitor hemoglobin. Continue antiacids. Current Visit: Yes Status: Acute Code(s): K92.2 - GASTROINTESTINAL HEMORRHAGE, UNSPECIFIED SNOMED Code(s): 63489857
[2022-10-05 11:49] LABS: Glucose,Whole Blood 191 mg/dL (70-110)
[2022-10-05 12:02] LABS: Anisocytosis Slight; HCT 32.6 % (39.0-53.0); HGB 10.2 gm/dL (13.0-17.5); Hypochromasia Slight; MCH 30.7 pg (25.0-35.0); MCHC 31.2 g/dL (31.0-37.0); MCV 98.4 fL (80.0-100.0); Macrocytosis Slight; Mean Platelet Volume 9.4; Platelet Count 127 k/uL (150-450); RBC 3.31 m/uL (4.30-5.90); RDW 17.2 % (11.5-15.5); WBC 7.9 k/uL (3.8-10.6)
--- NOTE | 2022-10-05 12:22 | P.PN ---
Subjective Patient is seen for follow-up for end-stage renal disease. Status post UF of 2.3 L with hemodialysis on 10/03/2022. Objective - Vital Signs Vital signs: Vital Signs Temp 97.4 F L 10/05/22 11:12 Pulse 77 10/05/22 12:15 Resp 16 10/05/22 11:12 BP 127/52 10/05/22 11:12 Pulse Ox 93 L 10/05/22 11:12 FiO2 Intake & Output 10/04/22 10/05/22 10/05/22 18:59 06:59 18:59 Weight 98 kg Other: Voiding Method Toilet # Voids 0 1 - Exam Patient is sleeping, comfortable, no acute distress Examination lower extremity shows no significant edema. - Labs CBC & Chem 7: 10/05/22 11:41 10/04/22 06:35 Labs: Abnormal Lab Results - Last 24 Hours (Table) 10/04/22 10/04/22 10/04/22 Range/Units 06:35 17:21 20:08 RBC (4.30-5.90) m/uL Hgb (13.0-17.5) gm/dL Hct (39.0-53.0) % RDW (11.5-15.5) % Plt Count (150-450) k/uL Sodium 128 L (135-145) mmol/L Chloride 90 L (96-109) mmol/L Anion Gap 13.60 H (4.00-12.00) mmol/L BUN 39.3 H (9.0-27.0) mg/dL Creatinine 4.9 H (0.6-1.5) mg/dL Est GFR (CKD-EPI) 12 L (>=60) BUN/Creatinine Ratio 8.02 L (12.00-20.00) Ratio Glucose 144 H (70-110) mg/dL POC Glucose (mg/dL) 386 H 425 H (70-110) mg/dL Alkaline Phosphatase 154 H (41-126) U/L Albumin/Globulin Ratio 1.18 L (1.60-3.17) Ratio 10/04/22 10/05/22 10/05/22 Range/Units 22:05 11:17 11:41 RBC 3.31 L (4.30-5.90) m/uL Hgb 10.2 L (13.0-17.5) gm/dL Hct 32.6 L (39.0-53.0) % RDW 17.2 H (11.5-15.5) % Plt Count 127 L (150-450) k/uL Sodium (135-145) mmol/L Chloride (96-109) mmol/L Anion Gap (4.00-12.00) mmol/L BUN (9.0-27.0) mg/dL Creatinine (0.6-1.5) mg/dL Est GFR (CKD-EPI) (>=60) BUN/Creatinine Ratio (12.00-20.00) Ratio Glucose (70-110) mg/dL POC Glucose (mg/dL) 256 H 191 H (70-110) mg/dL Alkaline Phosphatase (41-126) U/L Albumin/Globulin Ratio (1.60-3.17) Ratio Assessment and Plan Assessment: 1. End-stage renal disease maintained on hemodialysis on Thursday schedule. 2. Nausea vomiting and diarrhea. Possibly gastroenteritis. C. diff negative. Rule out GI bleed. Surgery following. EGD and colonoscopy not done as patient did not tolerate anesthesia. 3. Acute on chronic diastolic CHF. 4. Hypertension with chronic kidney disease. Blood pressure well controlled during dialysis. 5. Chronic kidney disease mineral bone disease maintained on PhosLo. Phosphorus level 4.4 dated 10/01/2022. 6. Anemia of chronic kidney disease. Iron deficiency noted. Plan: Maintain hemodialysis Thursday schedule Continue with Jonah
--- NOTE | 2022-10-05 14:39 | P.PN ---
Progress Note - Text Progress Note Date: 10/05/22 Presenting complaint: Tired Hospital course: I'm rounding for Dr. Isaak Amaya. 10/03/2022: Patient is to receive sedation for endoscopy. Relevant respiratory failure. Was intubated. Successfully extubated. Patient was having bloody bowel movements. Aspirin Plavix on hold. Patient does use 2-3 oxygen at home. We checked patient is oxygen and was down to 3 L. Pulse ox above 92%. Sitting at the edge of the bed. Incentive spirometry ordered. Patient being followed by surgery and Dr. Shannon. Patient lives alone. Patient 100% of his breakfast and lunch. Care was discussed length with the patient. Questions answered. Discussed with nurse. Also discussed with Dr. Isaak Amaya was patient's family doctor. Total time spent today about 1 hour over 40 minutes of discussion. 10/04/2022: Patient eating well. Breathing is stable. 94% on 4 L. Hemoglobin remained stable. Increase activity as tolerated. Patient remains off aspirin and Plavix. On PPI. Denies any cough. 10/05/2022: Sitting up in a chair. Comfortable. Breathing stable. Eating well. Hemodialysis schedule. Hemoglobin remained stable at 10.2. Active Medications Acetaminophen (Acetaminophen Tab 325 Mg Tab) 650 mg PO Q4HR PRN PRN Reason: Mild to Moderate Pain (1 - 6) Albuterol/Ipratropium (Ipratropium-Albuterol 3 Ml Neb) 3 ml INHALATION RT-QID [facility] Last Admin: 10/05/22 11:57 Dose: 3 ml Albuterol/Ipratropium (Ipratropium-Albuterol 3 Ml Neb) 3 ml INHALATION RT-QID PRN PRN Reason: SHORTNESS OF BREATH Budesonide (Budesonide 0.5 Mg/2 Ml Nebu) 0.5 mg INHALATION RT-BID [facility] Last Admin: 10/05/22 08:39 Dose: 0.5 mg Calcium Acetate (Calcium Acetate 667 Mg Tab) 667 mg PO ACHS [facility] Last Admin: 10/05/22 13:02 Dose: 667 mg Carvedilol (Carvedilol 12.5 Mg Tab) 12.5 mg PO BID-W/MEALS [facility] Last Admin: 10/05/22 08:26 Dose: 12.5 mg Darbepoetin [place] (Darbepoetin [place] 40 Mcg/0.4 Ml Syringe) 40 mcg SQ Q7D [facility] Last Admin: 10/03/22 13:10 Dose: 40 mcg Escitalopram Oxalate (Escitalopram 20 Mg Tab) 20 mg PO HS [facility] Last Admin: 10/04/22 20:46 Dose: 20 mg Hydralazine HCl (Hydralazine Hcl 50 Mg Tab) 50 mg PO TID [facility] Last Admin: 10/05/22 08:26 Dose: 50 mg Hydralazine HCl (Hydralazine Hcl 20 Mg/Ml 1 Ml Vial) 10 mg IVP Q6HR PRN PRN Reason: Blood Pressure - High Ferric Sodium Gluconate 125 mg (/ Sodium Chloride) 110 mls @ 100 mls/hr IVPB DAILY [facility] Last Admin: 10/05/22 08:26 Dose: 100 mls/hr Insulin Aspart (Insulin Aspart (Novolog) 100 Unit/Ml Vial) 0 unit SQ ACHS [facility]; Protocol Last Admin: 10/05/22 13:02 Dose: 2 unit Multivit/Ca Carb/B Cmplx/FA/Prenat (Folic Acid-Vit B Complex-Vit C 1 Cap) 1 each PO QAM [facility] Last Admin: 10/05/22 08:31 Dose: 1 each Naloxone HCl (Naloxone 0.4 Mg/Ml 1 Ml Vial) 0.2 mg IV Q2M PRN PRN Reason: Opioid Reversal Non-Formulary Medication (Rosuvastatin Calcium [Crestor]) 40 mg PO HS [facility] Last Admin: 10/04/22 20:46 Dose: Not Given Ondansetron HCl (Ondansetron 4 Mg/2 Ml Vial) 4 mg IVP Q6HR PRN PRN Reason: Nausea And Vomiting Last Admin: 10/01/22 03:12 Dose: 4 mg Pantoprazole Sodium (Pantoprazole 40 Mg Tablet) 40 mg PO AC-BID [facility] Last Admin: 10/05/22 08:26 Dose: 40 mg Prednisone (Prednisone 10 Mg Tab) 30 mg PO DAILY [facility] Zolpidem Tartrate (Zolpidem 5 Mg Tab) 5 mg PO HS [facility] Last Admin: 10/04/22 20:46 Dose: 5 mg On examination: VITAL SIGNS: 97.4, 76, 16, 1 27 x 32, 93% 4 L GENERAL APPEARANCE: Sitting up in a chair, comfortable, eating lunch HEENT: Normal external appearance of nose and ear. Oral cavity normal EYES: Pupils equal. Conjunctiva normal. NECK: JVD not raised. Mass not palpable. RESPIRATORY: Respiratory effort normal. Lungs decreased breath sound. CARDIOVASCULAR: First and second sounds normal. No edema. ABDOMEN: Soft. Liver and spleen not palpable. No tenderness. No mass palpable. PSYCHIATRY: Alert and oriented x3. Mood and affect normal. INVESTIGATIONS, reviewed in the clinical context: 10/05/2022: White count 7.9 hemoglobin 10.2 platelets 127 10/04/2022: White count 8.9 hemoglobin 9.7 platelets 140 sodium 128 potassium 5.2 BUN 39.3 creatinine 4.9 10/03/2022: White count 7.1 hemoglobin 10 platelets 113 October 02: Hemoglobin 9.4. Sodium 136 potassium 3.8 BUN 29.6 creatinine 4.6 C. diff: Negative 2-D echocardiogram 0.30 April 2022] EF 50-55% Assessment and plan: -Acute hypoxic respiratory failure secondary to sedation given for EGD. Patient status post ventilator assist. Currently on 4 L nasal cannula. -Chronic hypoxic respiratory failure from underlying COPD. On 2-3 L of oxygen at home -Coronary artery disease prior history of stent, history of coronary bypass 2021 Currently off aspirin Plavix because of GI bleed -Chronic congestive heart failure from diastolic dysfunction EF 50-55% -Diabetes mellitus type 2, uncontrolled with hyperglycemia secondary steroids Follow Accu-Cheks with sliding scale -Acute COPD exacerbation in a prior smoker: Better DuoNeb. Cutback prednisone to 30 mg. Being followed by Dr[address] Shannon. Pulmicort -End-stage kidney disease hemodialysis Follow with nephrology. Dialysis Thursday and Thursday -GERD -Anemia of chronic kidney disease and from GI bleed Follow H&H -Hyponatremia. -Essential hypertension Coreg 6.25 mg twice a day -Hyperlipidemia -Deaf in the left ear -Acute GI bleed. Patient aspirin Plavix has been held. Unable to do EGD because patient went into respiratory failure. PPI -Depression Lexapro -DO NOT RESUSCITATE Discussed with patient. On hemodialysis schedule. Cutback prednisone to 30 mg.
[2022-10-05 17:42] LABS: Glucose,Whole Blood 447 mg/dL (70-110)
[2022-10-05 21:02] LABS: Glucose,Whole Blood 454 mg/dL (70-110)
[2022-10-05] MEDS: ZOLPIDEM 5 MG TAB PO SCH (21:22)
[2022-10-05] MEDS: ESCITALOPRAM 20 MG TAB PO SCH (21:22)
[2022-10-05] MEDS: NON FORMULARY DRUG (Rosuvastatin Calcium [Crestor] 40 MG Tablet) PO SCH (21:23)
[2022-10-05] MEDS ORDERED: INSULIN ASPART (NovoLOG) 100 UNIT/ML VIAL SQ ONE (21:32)
[2022-10-06] MEDS: LEVOFLOXACIN 250 MG TAB PO SCH ×2 (01:56→10:49)
[2022-10-06 07:36] LABS: Glucose,Whole Blood 169 mg/dL (70-110)
[2022-10-06] MEDS: IPRATROPIUM-ALBUTEROL 3 ML NEB INHALATION SCH ×4 (07:57→20:44)
[2022-10-06] MEDS: BUDESONIDE 0.5 MG/2 ML NEBU INHALATION SCH ×2 (07:57→20:43)
[2022-10-06] MEDS: SODIUM FERRIC GLUCONAT-SUCROSE 125 MG in SODIUM CHLORIDE 0.9% 100 ML IVPB SCH (10:47)
[2022-10-06] MEDS: PANTOPRAZOLE 40 MG TABLET PO SCH ×2 (10:47→17:41)
[2022-10-06] MEDS: predniSONE 10 MG TAB PO SCH (10:48)
[2022-10-06] MEDS: carvediloL 12.5 MG TAB PO SCH ×2 (10:48→17:39)
[2022-10-06] MEDS: hydrALAZINE HCL 50 MG TAB PO SCH ×3 (10:48→22:05)
[2022-10-06] MEDS: CALCIUM ACETATE 667 MG TAB PO SCH ×4 (10:48→22:04)
[2022-10-06] MEDS: FOLIC ACID-VIT B COMPLEX-VIT C 1 CAP PO SCH (10:49)
[2022-10-06] MEDS: INSULIN ASPART (NovoLOG) 100 UNIT/ML VIAL SQ SCH ×4 (10:53→22:04)
[2022-10-06 12:27] LABS: Glucose,Whole Blood 202 mg/dL (70-110)
--- NOTE | 2022-10-06 13:33 | P.PN ---
Subjective Patient is seen for follow-up for end-stage renal disease. Seen on hemodialysis. Tolerating treatment fairly well. No significant complaints. Objective - Vital Signs Vital signs: Vital Signs Temp 97 F L 10/06/22 11:17 Pulse 58 L 10/06/22 11:17 Resp 20 10/06/22 11:17 BP 133/56 10/06/22 11:17 Pulse Ox 93 L 10/06/22 11:17 FiO2 Intake & Output 10/05/22 10/06/22 10/06/22 18:59 06:59 18:59 Intake Total 760 Balance 760 Weight 99.2 kg Intake: Oral 760 Other: Voiding Method Toilet # Voids 1 2 - Exam Patient is sleeping, comfortable, no acute distress Examination of the heart S1 and S2 Examination of the lungs bilateral breath sounds are heard Abdomen is soft nontender [employer] exam grossly intact Examination lower extremity shows no significant edema. - Labs CBC & Chem 7: 10/05/22 11:41 10/04/22 06:35 Labs: Abnormal Lab Results - Last 24 Hours (Table) 10/05/22 10/05/22 10/06/22 Range/Units 17:40 21:00 07:34 POC Glucose (mg/dL) 447 H 454 H 169 H (70-110) mg/dL 10/06/22 Range/Units 12:20 POC Glucose (mg/dL) 202 H (70-110) mg/dL Assessment and Plan Assessment: 1. End-stage renal disease maintained on hemodialysis on Thursday schedule. 2. Nausea vomiting and diarrhea. Possibly gastroenteritis. C. diff negative. Rule out GI bleed. Surgery following. EGD and colonoscopy not done as patient did not tolerate anesthesia. 3. Acute on chronic diastolic CHF. 4. Hypertension with chronic kidney disease. Blood pressure well controlled during dialysis. 5. Chronic kidney disease mineral bone disease maintained on PhosLo. Phosphorus level 4.4 dated 10/01/2022. 6. Anemia of chronic kidney disease. Iron deficiency noted. Maintained on IV iron Plan: Maintain hemodialysis Thursday schedule Continue with Aranesp DC IV iron
[2022-10-06 14:53] LABS: ALT 15 U/L (10-49); AST 23 U/L (14-35); Albumin 3.8 d/dL (3.8-4.9); Albumin/Globulin Ratio 1.27 Ratio (1.60-3.17); Alkaline Phosphatase 155 U/L (41-126); BUN/Creat Ratio 9.92 Ratio (12.00-20.00); Blood Urea Nitrogen 73.4 mg/dL (9.0-27.0); Calcium 8.9 mg/dL (8.7-10.3); Carbon Dioxide 24.1 mmol/L (21.6-31.8); Chloride 85 mmol/L (96-109); Glucose 148 mg/dL (70-110); Potassium 5.8 mmol/L (3.5-5.5); Sodium 124 mmol/L (135-145); Total Bilirubin 0.6 mg/dL (0.3-1.2); Total Protein 6.8 d/dL (6.2-8.2)
[2022-10-06 14:57] LABS: Basophils # (A) 0.01 X 10*3/uL (0.00-0.10); Basophils % (A) 0.1 %; Eosinophils # (A) 0.09 X 10*3/uL (0.04-0.35); HCT 31.3 % (39.6-50.0); HGB 9.7 d/dL (13.0-17.0); Lymphocytes # (A) 1.03 X 10*3/uL (0.90-5.00); MCH 29.9 pg (27.0-32.0); MCV 96.6 FL (80.0-97.0); Mean Platelet Volume 11.6 FL (9.5-12.2); Monocytes # (A) 1.06 X 10*3/uL (0.20-1.00); Monocytes % (A) 11.3 %; NRBC Per 100 WBC 0 X 10*3/uL (0.00-0.01); Neutrophils # (A) 7.11 X 10*3/uL (1.80-7.70); Neutrophils % (A) 76.1 %; Platelet Count 159 X 10*3/uL (140-440); RBC 3.24 X 10*6/uL (4.40-5.60); RDW 17.3 % (11.5-14.5); WBC 9.35 X 10*3/uL (4.50-10.00)
[2022-10-06 17:08] LABS: Glucose,Whole Blood 222 mg/dL (70-110)
[2022-10-06 21:15] LABS: Glucose,Whole Blood 314 mg/dL (70-110)
[2022-10-06] MEDS: ESCITALOPRAM 20 MG TAB PO SCH (22:04)
[2022-10-06] MEDS: ZOLPIDEM 5 MG TAB PO SCH (22:05)
[2022-10-06] MEDS: NON FORMULARY DRUG (Rosuvastatin Calcium [Crestor] 40 MG Tablet) PO SCH (22:05)
[2022-10-06] MEDS: LORazepam 0.5 MG TAB PO PRN (22:05)
--- NOTE | 2022-10-07 01:26 | PN ---
PROGRESS NOTE SUBJECTIVE: This 72-year-old white male has had no further GI bleeding since he has been admitted. He wants to go in to hospice as he is tired of all struggles in life. Hemoglobin is up to 10.4. His blood pressure is improved, everything has improved, but he wants to go in to hospice which is going to be starting tomorrow. Discussed this with his daughter and patient, both in agreement. He is sitting up, giving appropriate answers, in no acute distress. OBJECTIVE: CARDIOVASCULAR: S1, S2. LUNGS: Transmitted upper sounds. GI: Soft. PSYCH: Fair mood and affect. Appears depressed. ASSESSMENT: Came in with fluid overload, GI bleed, COPD, history of end-stage renal disease, pulmonary hypertension. Prognosis guarded. He will go in to hospice tomorrow. Please see further orders. MMODL / IJN: [id number] /
[2022-10-07] MEDS: LORazepam 0.5 MG TAB PO PRN (03:58)
[2022-10-07 07:14] LABS: Glucose,Whole Blood 254 mg/dL (70-110)
[2022-10-07] MEDS: IPRATROPIUM-ALBUTEROL 3 ML NEB INHALATION SCH ×3 (07:57→14:57)
[2022-10-07] MEDS: BUDESONIDE 0.5 MG/2 ML NEBU INHALATION SCH (07:58)
[2022-10-07 08:00] VITALS: BP 161/68; RESP 18; TEMP 98.6
[2022-10-07] MEDS: INSULIN ASPART (NovoLOG) 100 UNIT/ML VIAL SQ SCH ×2 (08:12→12:07)
[2022-10-07] MEDS: predniSONE 10 MG TAB PO SCH (08:13)
[2022-10-07] MEDS: LEVOFLOXACIN 250 MG TAB PO SCH (08:13)
[2022-10-07] MEDS: PANTOPRAZOLE 40 MG TABLET PO SCH (08:13)
[2022-10-07] MEDS: FOLIC ACID-VIT B COMPLEX-VIT C 1 CAP PO SCH (08:13)
[2022-10-07] MEDS: CALCIUM ACETATE 667 MG TAB PO SCH ×2 (08:13→13:07)
[2022-10-07] MEDS: carvediloL 12.5 MG TAB PO SCH (08:13)
[2022-10-07] MEDS: hydrALAZINE HCL 50 MG TAB PO SCH (08:13)
[2022-10-07 11:55] LABS: Glucose,Whole Blood 145 mg/dL (70-110)
--- NOTE | 2022-10-07 13:33 | P.PN ---
Subjective Patient is seen for follow-up for end-stage renal disease. There was discussion regarding hospice. Patient tolerated hemodialysis well yesterday with UF of 2.8 L. 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 - Labs CBC & Chem 7: 10/06/22 06:28 10/06/22 06:28 Labs: Abnormal Lab Results - Last 24 Hours (Table) 10/06/22 10/06/22 10/06/22 Range/Units 06:28 06:28 17:06 RBC 3.24 L (4.40-5.60) X 10*6/uL Hgb 9.7 L (13.0-17.0) d/dL Hct 31.3 L (39.6-50.0) % MCHC 31.0 L (32.0-37.0) d/dL RDW 17.3 H (11.5-14.5) % Monocytes # 1.06 H (0.20-1.00) X 10*3/uL Sodium 124 L (135-145) mmol/L Potassium 5.8 H (3.5-5.5) mmol/L Chloride 85 L (96-109) mmol/L Anion Gap 14.90 H (4.00-12.00) mmol/L BUN 73.4 H (9.0-27.0) mg/dL Creatinine 7.4 H* (0.6-1.5) mg/dL Est GFR (CKD-EPI) 7 L (>=60) BUN/Creatinine Ratio 9.92 L (12.00-20.00) Ratio Glucose 148 H (70-110) mg/dL POC Glucose (mg/dL) 222 H (70-110) mg/dL Alkaline Phosphatase 155 H (41-126) U/L Albumin/Globulin Ratio 1.27 L (1.60-3.17) Ratio 10/06/22 10/07/22 10/07/22 Range/Units 21:10 07:12 11:53 RBC (4.40-5.60) X 10*6/uL Hgb (13.0-17.0) d/dL Hct (39.6-50.0) % MCHC (32.0-37.0) d/dL RDW (11.5-14.5) % Monocytes # (0.20-1.00) X 10*3/uL Sodium (135-145) mmol/L Potassium (3.5-5.5) mmol/L Chloride (96-109) mmol/L Anion Gap (4.00-12.00) mmol/L BUN (9.0-27.0) mg/dL Creatinine (0.6-1.5) mg/dL Est GFR (CKD-EPI) (>=60) BUN/Creatinine Ratio (12.00-20.00) Ratio Glucose (70-110) mg/dL POC Glucose (mg/dL) 314 H 254 H 145 H (70-110) mg/dL Alkaline Phosphatase (41-126) U/L Albumin/Globulin Ratio (1.60-3.17) Ratio Assessment and Plan Assessment: 1. End-stage renal disease maintained on hemodialysis on Thursday schedule. 2. Nausea vomiting and diarrhea. Possibly gastroenteritis. C. diff negative. Rule out GI bleed. Surgery following. EGD and colonoscopy not done as patient did not tolerate anesthesia. 3. Acute on chronic diastolic CHF. 4. Hypertension with chronic kidney disease. Blood pressure well controlled during dialysis. 5. Chronic kidney disease mineral bone disease maintained on PhosLo. Phosphorus level 4.4 dated 10/01/2022. 6. Anemia of chronic kidney disease. Iron deficiency noted. Maintained on IV iron Plan: Maintain hemodialysis Thursday schedule Continue with Aranesp DC IV iron
[2022-10-07 13:52] VITALS: BMI 29.1
[2022-10-07 15:09] VITALS: PULSE 80
== END 2022-10-07 15:55 | disposition home or self-care (01) | DRG 377 ==
LOC: EC 19:33 → 5NMEDONC 22:20
PROVIDERS: ADMIT Family Medicine; ATTEND Family Medicine
PROC: 5A1D70Z Performance of Urinary Filtration, Intermittent, Less than 6 Hours Per Day (ICD-10-PCS; principal; 2022-10-01)
PROC: 0DJ08ZZ Inspection of Upper Intestinal Tract, Via Natural or Artificial Opening Endoscopic (ICD-10-PCS; 2022-10-02)
DX: K92.1 Melena (principal); I50.33 Acute on chronic diastolic (congestive) heart failure; N18.6 End stage renal disease; J96.21 Acute and chronic respiratory failure with hypoxia; I13.2 Hypertensive heart and chronic kidney disease with heart failure and with stage 5 chronic kidney disease, or end stage renal disease; E87.1 Hypo-osmolality and hyponatremia; J44.1 Chronic obstructive pulmonary disease with (acute) exacerbation; E11.22 Type 2 diabetes mellitus with diabetic chronic kidney disease; I25.10 Atherosclerotic heart disease of native coronary artery without angina pectoris; Z99.2 Dependence on renal dialysis; D63.1 Anemia in chronic kidney disease; E11.51 Type 2 diabetes mellitus with diabetic peripheral angiopathy without gangrene; E78.5 Hyperlipidemia, unspecified; F32.A Depression, unspecified; H91.92 Unspecified hearing loss, left ear; E83.89 Other disorders of mineral metabolism; G40.909 Epilepsy, unspecified, not intractable, without status epilepticus; I27.20 Pulmonary hypertension, unspecified; Z66 Do not resuscitate; E11.65 Type 2 diabetes mellitus with hyperglycemia; J84.10 Pulmonary fibrosis, unspecified; K21.9 Gastro-esophageal reflux disease without esophagitis; Z77.090 Contact with and (suspected) exposure to asbestos; Z87.11 Personal history of peptic ulcer disease; Z95.5 Presence of coronary angioplasty implant and graft; Z79.82 Long term (current) use of aspirin; Z99.81 Dependence on supplemental oxygen; Z79.02 Long term (current) use of antithrombotics/antiplatelets; Z79.51 Long term (current) use of inhaled steroids; Z79.84 Long term (current) use of oral hypoglycemic drugs; Z79.899 Other long term (current) drug therapy; Z95.1 Presence of aortocoronary bypass graft
CPT/HCPCS: 36415; 43235; 71045; 71046; 71250; 80053; 82140; 82728; 83540; 83550; 83690; 83735; 83880; 84100; 85025; 85027; 85610; 85730; 86706; 87324; 87340; 87636; 90935; 93005; 94640; 94760; 99285